=== PATIENT | male | born 1945 | race African-American/Black ===

== ENCOUNTER 2016-10-25 14:59 | Inpatient (IN) | payer OTHER ==
[2016-10-25 15:11] VITALS: BMI 14.0
--- NOTE | 2016-10-25 17:24 | PDOC ---
History of Present Illness - General History Source: Patient, Old Records Exam Limitations: No Limitations <Bridgte Cazares - Last Filed: 10/25/16 21:15> - General History Source: Patient, Old Records Exam Limitations: No Limitations - History of Present Illness Initial Comments: 10/25/16 17:38 The patient is a 70 year old male, with a significant past medical history of hyperlipidemia, COPD and seizures, who presents to the emergency department with worsening back pain s/p an unwitnessed mechanical fall this morning while getting off the toilet. The patient states that he fell off the toilet and onto the floor, landing on his back. The patient denies any LOC or any head trauma. The patient states that he did not have a syncopal episode or a seizure; he states that his legs gave out from under him. The patient denies shortness of breath or chest pain. The patient denies fever, chills, nausea or vomiting. The patient denies any extremity numbness/tingling. The patient denies any saddle anesthesia. Allergies: None reported. Past Surgical History: Right Total Hip Replacement Social History: The patient lives by himself in an apartment. Former smoker ( quit approximately 14 years ago). Denies alcohol or drug use. <Susan Elena - Last Filed: 10/25/16 21:25> - General Chief Complaint: Injury Stated Complaint: FALL, BACK PAIN Time Seen by Provider: 10/25/16 16:49 Past History - Past Medical History Anemia: No Asthma: No Cancer: No Cardiac Disorders: No CVA: No COPD: Yes CHF: No DVT: No Dementia: No Diabetes: No Dialysis: No GI Disorders: No Disorders: No HTN: No Hypercholesterolemia: Yes Kidney Stones: No Liver Disease: No Seizures: Yes Thyroid Disease: No - Surgical History Abdominal Surgery: No Appendectomy: No Cardiac Surgery: No Cholecystectomy: No Lung Surgery: No Neurologic Surgery: No Orthopedic Surgery: Yes (rt total hip) - Immunization History Immunization Up to Date: Yes - Psycho/Social/Smoking Cessation Hx Anxiety: No Suicidal Ideation: No Smoking Status: No Smoking History: Never smoked Have you smoked in the past 12 months: No Number of Cigarettes Smoked Daily: 0 If you are a former smoker, when did you quit?: 14 years Information on smoking cessation initiated: No 'Breaking Loose' booklet given: 02/04/16 Hx Alcohol Use: No Drug/Substance Use Hx: No Substance Use Type: None Hx Substance Use Treatment: No <Bridget Cazares - Last Filed: 10/25/16 21:15> <Susan Elena - Last Filed: 10/25/16 21:25> - Past Medical History Allergies/Adverse Reactions: Allergies Allergy/AdvReac Type Severity Reaction Status Date / Time No Known Drug Allergies Allergy Verified 10/25/16 15:03 Home Medications: Ambulatory Orders Albuterol 2.5/Ipratropium 0.5 [Duoneb -] 1 neb NEB Q4H PRN 06/11/14 Esomeprazole Mag Trihydrate [Nexium] 40 mg PO DAILY 06/11/14 Ipratropium [place] [Atrovent Hfa] 18 mcg IH Q4H PRN 06/11/14 Phenytoin Na Extended [Dilantin -] 100 mg PO BID 06/11/14 Tiotropium [place] [Spiriva] 1 inh PO DAILY 06/11/14 Acetaminophen [Tylenol .Regular Strength -] 325 mg PO Q8H #270 tablet 06/15/14 Aspirin [ASA -] 81 mg PO DAILY #90 tab.chew 06/15/14 Diltiazem HCl [Dilacor Xr] 120 mg PO DAILY #120 cap.er.deg 06/15/14 Montelukast Na [Singulair -] 10 mg PO HS #90 tablet 06/15/14 Simvastatin [Zocor -] 20 mg PO HS #90 06/15/14 Multivitamins [Multivit ([facility] Formul[facility])] 1 tab PO DAILY #90 tab 07/19/14 Fexofenadine/Pseudoephedrine [Kalpana-D 12 Hour Tablet] 1 each PO BID 02/04/16 Hydrogen Peroxide - 0 ml MM PRN 02/04/16 Levalbuterol Tartrate [Xopenex Hfa] 15 gm IH BID 02/04/16 Review of Systems - Review of Systems Able to Perform ROS?: Yes Comments:: 10/25/16 17:39 GENERAL/CONSTITUTIONAL: No fever or chills. No weakness. HEAD, EYES, EARS, NOSE AND THROAT: No change in vision. No ear pain or discharge. No sore throat. CARDIOVASCULAR: No chest pain or shortness of breath. RESPIRATORY: No cough, wheezing, or hemoptysis. GASTROINTESTINAL: No nausea, vomiting, diarrhea or constipation. GENITOURINARY: No dysuria, frequency, or change in urination. MUSCULOSKELETAL: +Back pain. No joint or muscle swelling or pain. No neck pain. SKIN: No rash. NEUROLOGIC: No headache, vertigo, loss of consciousness, or change in strength/ sensation. ENDOCRINE: No increased thirst. No abnormal weight change. HEMATOLOGIC/LYMPHATIC: No anemia, easy bleeding, or history of blood clots. ALLERGIC/IMMUNOLOGIC: No hives or skin allergy. <Susan Elena - Last Filed: 10/25/16 21:25> *Physical Exam - Vital Signs Last Vital Signs Temp Pulse Resp BP Pulse Ox 97.6 F 95 H 18 121/62 94 L 10/25/16 15:04 10/25/16 15:04 10/25/16 15:04 10/25/16 15:04 10/25/16 17:16 <Bridget Cazares - Last Filed: 10/25/16 21:15> - Vital Signs Last Vital Signs Temp Pulse Resp BP Pulse Ox 97.6 F 95 H 18 121/62 94 L 10/25/16 15:04 10/25/16 15:04 10/25/16 15:04 10/25/16 15:04 10/25/16 17:16 - Physical Exam Comments: 10/25/16 18:03 GENERAL: Cachectic appearing. Awake, alert, and fully oriented, in no acute distress. HEAD: No signs of trauma. EYES: PERRLA, EOMI, sclera anicteric, conjunctiva clear. ENT: Auricles normal inspection, hearing grossly normal, nares patent, oropharynx clear without exudates. Dry mucosa. NECK: Normal ROM, supple, no lymphadenopathy, JVD, or masses. LUNGS: Faint breath sounds but equal bilaterally. No wheezes, and no crackles. HEART: Regular rate and rhythm, normal S1 and S2, no murmurs, rubs or gallops. ABDOMEN: Soft, nontender, normoactive bowel sounds. No guarding, no rebound. No masses. MUSCULOSKELETAL: T5-T6 lower lumbar tenderness to palpation. No gross bony deformities. EXTREMITIES: Normal range of motion, no edema. No clubbing or cyanosis. No cords , erythema, or tenderness. NEUROLOGICAL: Cranial nerves II through XII grossly intact. Normal speech, gait is deferred. SKIN: Warm, dry, normal turgor, no rashes or lesions noted. <Susan Elena - Last Filed: 10/25/16 21:25> ED Treatment Course - LABORATORY CBC & Chemistry Diagram: 10/25/16 18:55 10/25/16 18:55 <Bridget Cazares - Last Filed: 10/25/16 21:15> - LABORATORY CBC & Chemistry Diagram: 10/25/16 18:55 10/25/16 18:55 <Susan Elena - Last Filed: 10/25/16 21:25> Medical Decision Making - Medical Decision Making 10/25/16 18:48 70-year-old male with history of COPD, hypertension, seizure disorder who presents to the emergency department with complaints of lower back pain status post fall today without LOC or syncope. Oxygen saturation is 94% on RA. Differential diagnosis includes but is not limited to: Back contusion, sprain, vertebral injury, UTI, pneumonia, ACS, electrolyte abnormality, dehydration, toxic/metabolic derangement. Plan: 1. EKG 2. Chest x-ray 3. Plain films of thoracic and lumbar spine 4. Urine and labs 5. Pain management 6. Observe and reevaluate 10/25/16 21:13 Addendum: The patient has a white blood cell count of 20,000. The chest x-ray appears to have an infiltrate in the right middle lobe and possibly the right lower lobe. The patient refused blood cultures but he is been covered with vancomycin and Zosyn regardless. His lactate is normal. The plan is to admit for IV antibiotics for pneumonia. Of note, his dilantin level is above the therapeutic range and thus may be a reason why he fell. I was not successful in completing a neurologic exam on this patient as he was not cooperative. <Bridget Cazares - Last Filed: 10/25/16 21:15> - Medical Decision Making 10/25/16 21:19 Called patient's PCP, Dr. Joshua Durán, at at 21:15. Referred to answering service, awaiting callback. Dr. Androne returned call at 21:23, case discussed. <Susan Elena - Last Filed: 10/25/16 21:25> *DC/Admit/Observation/Transfer - Discharge Dispostion Admit: Yes - Attestations Physician Attestion: 10/25/16 18:50 I, Dr. Bridget Cazares, attest that the scribes documentation that appears above has been prepared under my direction and personally reviewed by me in its entirety. I confirmed that the note above accurately reflects all work, treatment, procedures, and medical decision-making performed by me. <Bridget Cazares - Last Filed: 10/25/16 21:15> - Attestations Scribe Attestion: 10/25/16 17:38 Documentation prepared by Susan Elena, acting as medical device sales for Bridget Cazares MD. <Susan Elena - Last Filed: 10/25/16 21:25> Diagnosis at time of Disposition: Back pain, Fall, Pneumonia - Discharge Dispostion Condition at time of disposition: Stable
[2016-10-25 19:05] LABS: MCH 27.8 pg (25.7-33.7); MCHC 32.3 g/dl (32.0-35.9); MEAN PLT VOLUME 10.2 fl (7.5-11.1); PLATELET COUNT 156 K/MM3 (134-434); WHITE BLOOD COUNT 20.4 K/mm3 (4.0-10.0)
[2016-10-25 19:32] LABS: ALBUMIN 3.6 g/dl (3.4-5.0); ANION GAP 13 (8-16); BILIRUBIN,TOTAL 0.5 mg/dL (0.2-1.0); CALCIUM 8.8 mg/dL (8.5-10.1); CO2 24 mmol/L (21-32); CREATININE 0.6 mg/dL (0.7-1.3); GLUCOSE,RANDOM 80 mg/dL (74-106); SGPT/ALT 21 U/L (12-78); TOT PROT 7.2 g/dl (6.4-8.2)
[2016-10-25 19:35] LABS: ALK PHOS 166 U/L (45-117); TROPONIN I < 0.02 ng/ml (0.00-0.05)
[2016-10-25 19:36] LABS: SGOT/AST 20 U/L (15-37)
[2016-10-25 19:38] LABS: PLATELET ESTIMATE ADEQUATE (NORMAL)
[2016-10-25] MEDS ORDERED: PIPERACILLIN/TAZOB 3.375 GM/50 ML PRE-DOCKED IV ONE (20:07)
[2016-10-25] MEDS ORDERED: SODIUM CHLORIDE 1,000 ML IV STA (20:07)
[2016-10-25] MEDS ORDERED: VANCOMYCIN 1,000 MG in DEXTROSE 5%-WATER - 250 ML IVPB ONE (20:07)
[2016-10-25] MEDS ORDERED: PIPERACILLIN/TAZOB 3.375 GM 50 ML IVPB ONE (21:00)
[2016-10-25] MEDS ORDERED: VANCOMYCIN 1 GRAM (PRE-DOCKED) 250 ML IVPB ONE (21:40)
[2016-10-25 23:33] LABS: URINE APPEARANCE SLCLOUDY; URINE BILIRUBIN NEGATIVE (NEGATIVE); URINE COLOR YELLOW; URINE GLUCOSE (UA) 1+ (NEGATIVE); URINE KETONE 1+ (NEGATIVE); URINE NITRITE POSITIVE (NEGATIVE); URINE PROTEIN NEGATIVE (NEGATIVE); URINE UROBILINOGEN NEGATIVE E.U./dl (0.2-1.0)
[2016-10-25 23:35] LABS: URINE BLOOD 1+ (NEGATIVE); URINE LEUK ESTERASE 1+ (NEGATIVE)
[2016-10-25 23:37] LABS: URIC ACID CRYSTALS FEW /hpf (NONE SEEN); URINE BACTERIA MANY /hpf (NONE SEEN); URINE HYALINE CAST 9 /lpf; URINE MUCUS RARE; URINE RBC 2 /hpf (0-3); URINE WBC 19 /hpf (3-5)
[2016-10-26 09:52] LABS: ALBUMIN 3.4 g/dl (3.4-5.0); ALK PHOS 152 U/L (45-117); ANION GAP 15 (8-16); BILIRUBIN,TOTAL 0.6 mg/dL (0.2-1.0); CALCIUM 8.8 mg/dL (8.5-10.1); CO2 22 mmol/L (21-32); CREATININE 0.5 mg/dL (0.7-1.3); GLUCOSE,RANDOM 62 mg/dL (74-106); SGOT/AST 13 U/L (15-37); SGPT/ALT 20 U/L (12-78); TOT PROT 6.7 g/dl (6.4-8.2)
[2016-10-26] MEDS ORDERED: AZITHROMYCIN IVPB 250 ML IVPB ONE (10:00)
[2016-10-26] MEDS ORDERED: PATIENT'S OWN MEDICATION (NON-FORMULARY) (Esomeprazole Mag Trihydrate [Nexium] 40 MG) PO SCH (10:00)
[2016-10-26] MEDS ORDERED: PT OWN MED DRAWER 7, Y5N ONE ×2 (11:14→22:57)
[2016-10-26] MEDS: MULTIVITAMINS (DAILY MVI) TABLET (FP) PO SCH (11:44)
[2016-10-26] MEDS: PANTOPRAZOLE 40 MG TABLET (FP) PO SCH (11:44)
[2016-10-26] MEDS: ASPIRIN 81 MG CHEWABLE TABLETS PO SCH (11:44)
--- NOTE | 2016-10-26 11:55 | HP ---
Admitting History and Physical - Primary Care Physician PCP: Joshua Durán - Admission Chief Complaint: Weakness. Fall History of Present Illness: Pt started to feel weak yesterday and fell from the toilet bowl on his back; no head trauma, no back pain, no hip pain. Pt with minimal colored sputum, no SOB, no CP/ dizziness/ palp. History Source: Patient, Medical Record - Past Medical History Cardiovascular: Yes: CAD (s/p PCI with cardiac stent), HTN, Hyperlipdemia Pulmonary: Yes: COPD, O2 Dependent Gastrointestinal: Yes: GERD - Past Surgical History Past Surgical History: Yes: Joint Replacement - Smoking History Smoking history: Never smoked Have you smoked in the past 12 months: No Aproximately how many cigarettes per day: 0 If you are a former smoker, when did you quit?: 14 years - Alcohol/Substance Use Hx Alcohol Use: No - Social History History of Recent Travel: No Home Medications - Allergies Allergies/Adverse Reactions: Allergies Allergy/AdvReac Type Severity Reaction Status Date / Time No Known Drug Allergies Allergy Verified 10/25/16 15:03 - Home Medications Home Medications: Ambulatory Orders Albuterol 2.5/Ipratropium 0.5 [Duoneb -] 1 neb NEB Q4H PRN 06/11/14 Esomeprazole Mag Trihydrate [Nexium] 40 mg PO DAILY 06/11/14 Ipratropium [place] [Atrovent Hfa] 18 mcg IH Q4H PRN 06/11/14 Phenytoin Na Extended [Dilantin -] 100 mg PO BID 06/11/14 Tiotropium [place] [Spiriva] 1 inh PO DAILY 06/11/14 Acetaminophen [Tylenol .Regular Strength -] 325 mg PO Q8H #270 tablet 06/15/14 Aspirin [ASA -] 81 mg PO DAILY #90 tab.chew 06/15/14 Diltiazem HCl [Dilacor Xr] 120 mg PO DAILY #120 cap.er.deg 06/15/14 Montelukast Na [Singulair -] 10 mg PO HS #90 tablet 06/15/14 Simvastatin [Zocor -] 20 mg PO HS #90 06/15/14 Multivitamins [Multivit ([facility] Form[facility])] 1 tab PO DAILY #90 tab 07/19/14 Fexofenadine/Pseudoephedrine [Kalpana-D 12 Hour Tablet] 1 each PO BID 02/04/16 Hydrogen Peroxide - 0 ml MM PRN 02/04/16 Levalbuterol Tartrate [Xopenex Hfa] 15 gm IH BID 02/04/16 Review of Systems - Review of Systems Constitutional: denies: Chills, Fever, Night Sweats Eyes: denies: Blurred Vision, Double Vision HENT: denies: Difficult Swallowing, Ear Discharge, Ear Pain, Throat Pain Neck: denies: Pain on Movement, Tenderness Cardiovascular: denies: Chest Pain, Edema, Palpitations, Shortness of Breath Respiratory: reports: Cough. denies: Hemoptysis, Wheezing Gastrointestinal: denies: Abdominal Pain, Constipation, Diarrhea, Nausea Genitourinary: denies: Burning, Discharge, Flank Pain Musculoskeletal: denies: Back Pain, Joint Pain, Joint Swelling Integumentary: denies: Blister, Bruising, Rash Neurological: denies: Change in LOC, Change in Speech, Confusion, Headache, Numbness, Tremors Endocrine: denies: Excessive Sweating, Intolerance to Cold Psychiatric: denies: Altered Sleep Pattern, Anxiety, Depression Physical Examination Vital Signs: Vital Signs Temperature 98.7 F 10/26/16 08:37 Pulse Rate 90 10/26/16 08:37 Respiratory Rate 20 10/26/16 08:37 Blood Pressure 134/75 10/26/16 08:37 O2 Sat by Pulse Oximetry (%) 94 L 10/26/16 00:16 Constitutional: Yes: No Distress, Calm Eyes: Yes: Conjunctiva Clear, PERRL. No: Sclera Icterus HENT: Yes: Normocephalic. No: Epistaxis, Pharyngeal Erythema, Rhinnorhea Neck: Yes: Supple. No: Lymphadenopathy Cardiovascular: Yes: Regular Rate and Rhythm, S1, S2 Respiratory: Yes: Rhonchi (bilar, right > left) Gastrointestinal: Yes: Normal Bowel Sounds, Soft. No: Palpable Mass, Tenderness ...Rectal Exam: Yes: Deferred Musculoskeletal: No: Back Pain, Joint Swelling Edema: No Integumentary: No: Bruising, Rash Neurological: Yes: Alert, Oriented, Other (symmetric motor and sensory in UE/ LE / face.) Psychiatric: Yes: Alert, Oriented Labs: CBC, BMP 10/26/16 06:00 Imaging - Results Chest X-ray: Report Reviewed Problem List - Problems (1) Pneumonia Assessment/Plan: ON IV abtx Pulmonary consult Code(s): J18.9 - PNEUMONIA, UNSPECIFIED ORGANISM (2) Fall Assessment/Plan: no obvious trauma Code(s): W19.XXXA - UNSPECIFIED FALL, INITIAL ENCOUNTER (3) COPD (chronic obstructive pulmonary disease) Assessment/Plan: to f/u with Pulmonary Code(s): J44.9 - CHRONIC OBSTRUCTIVE PULMONARY DISEASE, UNSPECIFIED (4) CAD (coronary artery disease) Assessment/Plan: cont meds Code(s): I25.10 - ATHSCL HEART DISEASE OF [place] CORONARY ARTERY W/O ANG PCTRS (5) Hypercholesterolemia Assessment/Plan: Pt is refusing to eat Low cholesterol, low salt diet- this is going on for years ; pt is underweight for years, refusing to gain weight as he states that has negative effect on his body. Code(s): E78.0 - PURE HYPERCHOLESTEROLEMIA * DO NOT USE * (6) Seizure disorder Assessment/Plan: on Dilantin- difficult to monitor as patient is refusing blood drawing as outpt. Elevated Dilantin level now; Dilantin is on hold; to monitor Code(s): G40.909 - EPILEPSY, UNSP, NOT INTRACTABLE, WITHOUT STATUS EPILEPTICUS Assessment/Plan DVT proph PT
[2016-10-26 12:00] LABS: MCH 27.7 pg (25.7-33.7); MCHC 31.9 g/dl (32.0-35.9); MEAN CELL VOLUME 86.9 fl (80-96); MEAN PLT VOLUME 10.6 fl (7.5-11.1); PLATELET COUNT 152 K/MM3 (134-434); WHITE BLOOD COUNT 22.9 K/mm3 (4.0-10.0)
[2016-10-26] MEDS ORDERED: POTASSIUM CHLORIDE TABS 20 MEQ TABLET.ER (FP) PO ONE (12:04)
[2016-10-26] MEDS: ACLIDINIUM BROMIDE 400 MCG/INH AERO.POWD IH SCH ×2 (13:08→23:03)
[2016-10-26] MEDS: cefTRIAXone 1 GM/50 ML BAG (PRE-DOCKED) IVPB SCH (13:08)
[2016-10-26] MEDS ORDERED: guaiFENesin/D-METHORPHAN HB 10 ML UNIT-DOSE CUPS PO PRN (13:14)
--- NOTE | 2016-10-26 14:20 | CON.PULM ---
Consult Consult Specialty:: PULMONARY Referred by:: EVELIA Reason for Consultation:: SOB/PNA - History of Present Illness Chief Complaint: SOB/COUGH History of Present Illness: The patient is a 70 year old male, with a significant past medical history of hyperlipidemia, COPD and seizures, who presents to the emergency department with worsening back pain s/p an unwitnessed mechanical fall this morning while getting off the toilet. The patient states that he fell off the toilet and onto the floor, landing on his back. The patient denies any LOC or any head trauma. The patient states that he did not have a syncopal episode or a seizure; he states that his legs gave out from under him. The patient denies shortness of breath or chest pain. The patient denies fever, chills, nausea or vomiting. The patient denies any extremity numbness/tingling. - History Source History Provided By: Patient, Medical Record Limitations to Obtaining History: Poor Historian - Past Medical History FABRICATION SPECIALIST: No: Alzheimer's Cardio/Vascular: Yes: CAD (s/p PCI with cardiac stent), HTN, Hyperlipdemia Pulmonary: Yes: COPD, O2 Dependent Gastrointestinal: Yes: GERD - Past Surgical History Past Surgical History: Yes: Joint Replacement - Alcohol/Substance Use Hx Alcohol Use: No - Smoking History Smoking history: Never smoked Have you smoked in the past 12 months: No Aproximately how many cigarettes per day: 0 If you are a former smoker, when did you quit?: 14 years - Social History Place of : [facility] History of Recent Travel: No Home Medications - Allergies Allergies/Adverse Reactions: Allergies Allergy/AdvReac Type Severity Reaction Status Date / Time No Known Drug Allergies Allergy Verified 10/25/16 15:03 - Home Medications Home Medications: Ambulatory Orders Albuterol 2.5/Ipratropium 0.5 [Duoneb -] 1 neb NEB Q4H PRN 06/11/14 Esomeprazole Mag Trihydrate [Nexium] 40 mg PO DAILY 06/11/14 Ipratropium [place] [Atrovent Hfa] 18 mcg IH Q4H PRN 06/11/14 Phenytoin Na Extended [Dilantin -] 100 mg PO BID 06/11/14 Tiotropium [place] [Spiriva] 1 inh PO DAILY 06/11/14 Acetaminophen [Tylenol .Regular Strength -] 325 mg PO Q8H #270 tablet 10/09/14 Aspirin [ASA -] 81 mg PO DAILY #90 tab.chew 06/15/14 Diltiazem HCl [Dilacor Xr] 120 mg PO DAILY #120 cap.er.deg 06/15/14 Montelukast Na [Singulair -] 10 mg PO HS #90 tablet 06/15/14 Simvastatin [Zocor -] 20 mg PO HS #90 06/15/14 Multivitamins [Multivit ([facility])] 1 tab PO DAILY #90 tab 07/19/14 Fexofenadine/Pseudoephedrine [Kalpana-D 12 Hour Tablet] 1 each PO BID 02/04/16 Hydrogen Peroxide - 0 ml MM PRN 02/04/16 Levalbuterol Tartrate [Xopenex Hfa] 15 gm IH BID 02/04/16 Family Disease History - Family Disease History Family History: Unremarkable Review of Systems - Review of Systems Constitutional: denies: Fever Eyes: denies: Blurred Vision HENT: denies: Difficult Swallowing Neck: denies: Decreased ROM Cardiovascular: denies: Chest Pain Respiratory: reports: Cough, SOB, SOB on Exertion Gastrointestinal: reports: No Symptoms Genitourinary: reports: No Symptoms Breasts: reports: No Symptoms Reported Physical Exam Vital Sings: Vital Signs Temperature 98.7 F 10/26/16 08:37 Pulse Rate 90 10/26/16 08:37 Respiratory Rate 20 10/26/16 08:37 Blood Pressure 134/75 10/26/16 08:37 O2 Sat by Pulse Oximetry (%) 94 L 10/26/16 00:16 Constitutional: Yes: Calm Eyes: Yes: EOM Intact HENT: Yes: Normocephalic Neck: Yes: Trachea Midline Cardiovascular: Yes: Regular Rate and Rhythm Respiratory: Yes: Diminished Gastrointestinal: Yes: Normal Bowel Sounds Musculoskeletal: Yes: WNL Extremities: Yes: WNL Neurological: Yes: Alert Labs: CBC, BMP 10/26/16 11:38 10/26/16 06:00 REST REVIEWED Imaging - Results Chest X-ray: Image Reviewed Problem List - Problems (1) Pneumonia Code(s): J18.9 - PNEUMONIA, UNSPECIFIED ORGANISM (2) CAD (coronary artery disease) Code(s): I25.10 - ATHSCL HEART DISEASE OF [place] CORONARY ARTERY W/O ANG PCTRS (3) COPD (chronic obstructive pulmonary disease) Code(s): J44.9 - CHRONIC OBSTRUCTIVE PULMONARY DISEASE, UNSPECIFIED Assessment/Plan RLL CAP COPD SEIZURE DISORDER HPL PANCULTURE ANTIBIOTICS/BRONCHODILATORS/O2 SUPPLEMENTATION SHORT COURSE STEROIDS DVT PROPHYLAXSIS CONSIDER CT CHEST WILL FOLLOW Alejo CLANCY MD
[2016-10-26] MEDS ORDERED: PATIENT'S OWN MEDICATION (NON-FORMULARY) (Simvastatin 20 MG) PO SCH (22:00)
[2016-10-26] MEDS: ATORVASTATIN CA 10 MG TABLET (FP) PO SCH (23:02)
[2016-10-26] MEDS: HEPARIN NA (PORCINE) 5,000 UNITS/ML 1ML VIAL SQ SCH (23:02)
[2016-10-26] MEDS: MONTELUKAST NA 10 MG TABLET PO SCH (23:02)
[2016-10-27 07:20] LABS: MCH 28.1 pg (25.7-33.7); MCHC 32.6 g/dl (32.0-35.9); MEAN PLT VOLUME 10.6 fl (7.5-11.1); PLATELET COUNT 149 K/MM3 (134-434); RDW 13.9 % (11.9-15.9); WHITE BLOOD COUNT 16.7 K/mm3 (4.0-10.0)
[2016-10-27 08:07] LABS: ALBUMIN 2.9 g/dl (3.4-5.0); ANION GAP 15 (8-16); CALCIUM 8.4 mg/dL (8.5-10.1); CO2 21 mmol/L (21-32); CREATININE 0.4 mg/dL (0.7-1.3); GLUCOSE,RANDOM 64 mg/dL (74-106); SGOT/AST 9 U/L (15-37); SGPT/ALT 17 U/L (12-78)
[2016-10-27 08:09] LABS: ALK PHOS 132 U/L (45-117); BILIRUBIN,TOTAL 0.5 mg/dL (0.2-1.0)
[2016-10-27] MEDS: ALBUTEROL SO4 2.5/IPRATROPIUM 0.5 INH SOL 3 ML VIAL.NEB. NEB PRN (10:44)
[2016-10-27] MEDS: ACLIDINIUM BROMIDE 400 MCG/INH AERO.POWD IH SCH ×2 (11:11→21:34)
[2016-10-27] MEDS ORDERED: PT OWN MED DRAWER 7, Y5N ONE ×2 (11:14→21:03)
[2016-10-27] MEDS: HEPARIN NA (PORCINE) 5,000 UNITS/ML 1ML VIAL SQ SCH ×2 (11:15→21:34)
[2016-10-27] MEDS: PANTOPRAZOLE 40 MG TABLET (FP) PO SCH (11:15)
[2016-10-27] MEDS: MULTIVITAMINS (DAILY MVI) TABLET (FP) PO SCH (11:15)
[2016-10-27] MEDS: ASPIRIN 81 MG CHEWABLE TABLETS PO SCH (11:15)
[2016-10-27] MEDS: cefTRIAXone 1 GM/50 ML BAG (PRE-DOCKED) IVPB SCH (12:34)
--- NOTE | 2016-10-27 14:12 | PN ---
Progress Note, Physician History of Present Illness: Pt. w/o SOB ( in bed most of the time), CP< palp, abd pain. Pt. with cough, sputum - Current Medication List Current Medications: Active Medications Acetaminophen (Tylenol -) 650 mg PO Q8H PRN PRN Reason: PAIN Aclidinium [place] (Tudorza -) 1 puff IH BID [facility] Last Admin: 10/27/16 11:11 Dose: 1 puff Albuterol/Ipratropium (Duoneb -) 1 amp NEB Q4H PRN PRN Reason: SHORTNESS OF BREATH Last Admin: 10/27/16 10:44 Dose: 1 amp Aspirin (Asa -) 81 mg PO DAILY [facility] Last Admin: 10/27/16 11:15 Dose: 81 mg Atorvastatin Calcium (Lipitor -) 10 mg PO HS [facility] Last Admin: 10/26/16 23:02 Dose: 10 mg Ceftriaxone Sodium (Rocephin 1gm Ivpb (Pre-Docked)) 1 gm IVPB DAILY [facility] PRN Reason: Protocol Last Admin: 10/27/16 12:34 Dose: 1 gm Diltiazem HCl (Cardizem Cd -) 120 mg PO DAILY [facility] Last Admin: 10/27/16 11:15 Dose: 120 mg Guaifenesin (Robitussin Dm -) 10 ml PO Q4H PRN PRN Reason: COUGH Heparin Sodium (Porcine) (Heparin -) 5,000 unit SQ BID [facility] Last Admin: 10/27/16 11:15 Dose: 5,000 unit Montelukast Sodium (Singulair -) 10 mg PO HS [facility] Last Admin: 10/26/16 23:02 Dose: 10 mg Multivitamins/Minerals/Vitamin C (Tab-A-Vit -) 1 tab PO DAILY [facility] Last Admin: 10/27/16 11:15 Dose: 1 tab Pantoprazole Sodium (Protonix -) 40 mg PO DAILY [facility] Last Admin: 10/27/16 11:15 Dose: 40 mg Phenytoin Sodium (Dilantin -) 100 mg PO BID [facility] Potassium Chloride (K-Dur -) 20 meq PO ONCE ONE Stop: 10/27/16 14:02 - Objective Vital Signs: Vital Signs Temperature 98.7 F 10/27/16 06:10 Pulse Rate 78 10/27/16 06:10 Respiratory Rate 18 10/27/16 06:10 Blood Pressure 126/67 10/27/16 06:10 O2 Sat by Pulse Oximetry (%) 94 L 10/26/16 21:00 Constitutional: Yes: No Distress, Calm Cardiovascular: Yes: Regular Rate and Rhythm, S1, S2 Respiratory: Yes: Regular, Rales, Rhonchi. No: Wheezes Gastrointestinal: Yes: Normal Bowel Sounds, Soft. No: Palpable Mass, Tenderness Edema: No Neurological: Yes: Alert, Oriented Labs: CBC, BMP 10/27/16 06:00 10/27/16 06:00 Problem List - Problems (1) Pneumonia Assessment/Plan: On IV abtx Pulmonary consult appreciated Incentive spirometry Code(s): J18.9 - PNEUMONIA, UNSPECIFIED ORGANISM (2) Fall Assessment/Plan: no obvious trauma Code(s): W19.XXXA - UNSPECIFIED FALL, INITIAL ENCOUNTER (3) COPD (chronic obstructive pulmonary disease) Assessment/Plan: to f/u with Pulmonary Code(s): J44.9 - CHRONIC OBSTRUCTIVE PULMONARY DISEASE, UNSPECIFIED (4) CAD (coronary artery disease) Assessment/Plan: cont meds Code(s): I25.10 - ATHSCL HEART DISEASE OF [place] CORONARY ARTERY W/O ANG PCTRS (5) Hypercholesterolemia Assessment/Plan: Pt is refusing to eat Low cholesterol, low salt diet- this is going on for years ; pt is underweight for years, refusing to gain weight as he states that has negative effect on his body. Code(s): E78.0 - PURE HYPERCHOLESTEROLEMIA * DO NOT USE * (6) Seizure disorder Assessment/Plan: on Dilantin- difficult to monitor as patient is refusing blood drawing as outpt. Elevated Dilantin resolved; to start Dilantin; to monitor level. Code(s): G40.909 - EPILEPSY, UNSP, NOT INTRACTABLE, WITHOUT STATUS EPILEPTICUS Assessment/Plan DVT proph PT AM labs
--- NOTE | 2016-10-27 15:08 | PN ---
Progress Note (short form) - Note Progress Note: Still with congested cough with dark sputum. No CP. Less SOB today. Intake & Output 10/24/16 10/25/16 10/26/16 10/27/16 23:59 23:59 23:59 23:59 Intake Total 450 0 Balance 450 0 Weight 95 lb 95 lb Last Vital Signs Temp Pulse Resp BP Pulse Ox 98.7 F 78 18 126/67 94 L 10/27/16 06:10 10/27/16 06:10 10/27/16 06:10 10/27/16 06:10 10/26/16 21:00 Active Medications Acetaminophen (Tylenol -) 650 mg PO Q8H PRN PRN Reason: PAIN Aclidinium [place] (Tudorza -) 1 puff IH BID [facility] Last Admin: 10/27/16 11:11 Dose: 1 puff Albuterol/Ipratropium (Duoneb -) 1 amp NEB Q4H PRN PRN Reason: SHORTNESS OF BREATH Last Admin: 10/27/16 10:44 Dose: 1 amp Aspirin (Asa -) 81 mg PO DAILY [facility] Last Admin: 10/27/16 11:15 Dose: 81 mg Atorvastatin Calcium (Lipitor -) 10 mg PO HS [facility] Last Admin: 10/26/16 23:02 Dose: 10 mg Ceftriaxone Sodium (Rocephin 1gm Ivpb (Pre-Docked)) 1 gm IVPB DAILY [facility] PRN Reason: Protocol Last Admin: 10/27/16 12:34 Dose: 1 gm Diltiazem HCl (Cardizem Cd -) 120 mg PO DAILY [facility] Last Admin: 10/27/16 11:15 Dose: 120 mg Guaifenesin (Robitussin Dm -) 10 ml PO Q4H PRN PRN Reason: COUGH Heparin Sodium (Porcine) (Heparin -) 5,000 unit SQ BID [facility] Last Admin: 10/27/16 11:15 Dose: 5,000 unit Montelukast Sodium (Singulair -) 10 mg PO HS [facility] Last Admin: 10/26/16 23:02 Dose: 10 mg Multivitamins/Minerals/Vitamin C (Tab-A-Vit -) 1 tab PO DAILY [facility] Last Admin: 10/27/16 11:15 Dose: 1 tab Pantoprazole Sodium (Protonix -) 40 mg PO DAILY [facility] Last Admin: 10/27/16 11:15 Dose: 40 mg Phenytoin Sodium (Dilantin -) 100 mg PO BID [facility] Potassium Chloride (K-Dur -) 20 meq PO ONCE ONE Stop: 10/27/16 15:16 Last Admin: 10/27/16 15:02 Dose: 20 meq Constitutional: Yes: No Distress Cardiovascular: Yes: Regular Rate and Rhythm, S1, S2 Respiratory: Yes: Bilateral Rhonchi: R>L. No: Wheezes Gastrointestinal: Yes: Normal Bowel Sounds, Soft. No: Palpable Mass, Tenderness Edema: No Neurological: Yes: Alert, Oriented Labs: Laboratory Results - last 24 hr 10/27/16 10/27/16 10/27/16 06:00 06:00 06:00 WBC 16.7 H RBC 4.35 Hgb 12.2 Hct 37.4 MCV 86.0 MCHC 32.6 RDW 13.9 Plt Count 149 MPV 10.6 Sodium 143 Potassium 3.5 Chloride 107 Carbon Dioxide 21 Anion Gap 15 BUN 11 Creatinine 0.4 L Creat Clearance w eGFR > 60 Random Glucose 64 L Calcium 8.4 L Total Bilirubin 0.5 AST 9 L D ALT 17 Alkaline Phosphatase 132 H Total Protein 6.0 L Albumin 2.9 L Phenytoin 15.8 D Problem List - Problems (1) Pneumonia Assessment/Plan: Code(s): J18.9 - PNEUMONIA, UNSPECIFIED ORGANISM (2) Fall Assessment/Plan: Code(s): W19.XXXA - UNSPECIFIED FALL, INITIAL ENCOUNTER (3) COPD (chronic obstructive pulmonary disease) Assessment/Plan: Code(s): J44.9 - CHRONIC OBSTRUCTIVE PULMONARY DISEASE, UNSPECIFIED (4) CAD (coronary artery disease) Assessment/Plan: Code(s): I25.10 - ATHSCL HEART DISEASE OF [place] CORONARY ARTERY W/O ANG PCTRS (5) Hypercholesterolemia Assessment/Plan: Code(s): E78.0 - PURE HYPERCHOLESTEROLEMIA * DO NOT USE * (6) Seizure disorder Assessment/Plan: Code(s): G40.909 - EPILEPSY, UNSP, NOT INTRACTABLE, WITHOUT STATUS EPILEPTICUS Assessment/Plan Rocephin Daily Medrol for CAP BD TX O2 as needed Incentive Spirometry Dr Garay
[2016-10-27] MEDS: ACETAMINOPHEN 325 MG TABLET (FP) PO PRN (15:11)
[2016-10-27] MEDS ORDERED: POTASSIUM CHLORIDE TABS 20 MEQ TABLET.ER (FP) PO ONE (15:15)
--- NOTE | 2016-10-27 16:23 | EKG ---
Test Reason : Blood Pressure : / mmHG Vent. 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
[2016-10-27] MEDS: methylPREDNISolone NA SUCC 40 MG/1 ML VIAL IVPB SCH (17:48)
[2016-10-27] MEDS: MONTELUKAST NA 10 MG TABLET PO SCH (21:34)
[2016-10-27] MEDS: PHENYTOIN NA EXTENDED 100 MG CAPSULE (FP) PO SCH (21:34)
[2016-10-27] MEDS: ATORVASTATIN CA 10 MG TABLET (FP) PO SCH (21:34)
[2016-10-28] MEDS: ACETAMINOPHEN 325 MG TABLET (FP) PO PRN ×2 (06:46→18:53)
--- NOTE | 2016-10-28 09:57 | PN ---
Progress Note (short form) - Note Progress Note: PULMONARY Denies shortness of breath. +cough clearing, now with white sputum. No fevers or chills. Last Vital Signs Temp Pulse Resp BP Pulse Ox 97.8 F 76 20 108/55 97 10/28/16 06:26 10/28/16 06:26 10/28/16 06:26 10/28/16 06:26 10/27/16 21:00 Gen: NAD at rest Heart: RRR Lung: distant breath sounds Abd: soft, nontender Ext: no edema CBC, BMP 10/27/16 06:00 10/27/16 06:00 Active Medications Acetaminophen (Tylenol -) 650 mg PO Q8H PRN PRN Reason: PAIN Last Admin: 10/28/16 06:46 Dose: 650 mg Aclidinium [place] (Tudorza -) 1 puff IH BID [facility] Last Admin: 10/27/16 21:34 Dose: 1 puff Albuterol/Ipratropium (Duoneb -) 1 amp NEB Q4H PRN PRN Reason: SHORTNESS OF BREATH Last Admin: 10/27/16 10:44 Dose: 1 amp Aspirin (Asa -) 81 mg PO DAILY [facility] Last Admin: 10/27/16 11:15 Dose: 81 mg Atorvastatin Calcium (Lipitor -) 10 mg PO HS [facility] Last Admin: 10/27/16 21:34 Dose: 10 mg Ceftriaxone Sodium (Rocephin 1gm Ivpb (Pre-Docked)) 1 gm IVPB DAILY [facility] PRN Reason: Protocol Last Admin: 10/27/16 12:34 Dose: 1 gm Diltiazem HCl (Cardizem Cd -) 120 mg PO DAILY [facility] Last Admin: 10/27/16 11:15 Dose: 120 mg Guaifenesin (Robitussin Dm -) 10 ml PO Q4H PRN PRN Reason: COUGH Heparin Sodium (Porcine) (Heparin -) 5,000 unit SQ BID [facility] Last Admin: 10/27/16 21:34 Dose: 5,000 unit Methylprednisolone Sodium Succinate (Solu-Medrol -) 40 mg IVPB DAILY [facility] Stop: 11/01/16 15:29 Last Admin: 10/27/16 17:48 Dose: 40 mg Montelukast Sodium (Singulair -) 10 mg PO HS [facility] Last Admin: 10/27/16 21:34 Dose: 10 mg Multivitamins/Minerals/Vitamin C (Tab-A-Vit -) 1 tab PO DAILY [facility] Last Admin: 10/27/16 11:15 Dose: 1 tab Pantoprazole Sodium (Protonix -) 40 mg PO DAILY [facility] Last Admin: 10/27/16 11:15 Dose: 40 mg Phenytoin Sodium (Dilantin -) 100 mg PO BID [facility] Last Admin: 10/27/16 21:34 Dose: 100 mg A/P Pneumonia s/p Fall COPD CAD Hypercholesterolemia Seizure Disorder - continue antibiotics - monitor WBC, fever curve - O2 as needed - inhaled bronchodilators - can change steroids to PO - rehab/PT - requesting social work for home scooter - DVT prophylaxis
--- NOTE | 2016-10-28 09:58 | PN ---
Progress Note, Physician History of Present Illness: Pt. w/o SOB ( in bed most of the time), CP, palp, abd pain. Pt. with cough, sputum- no blood Pt. is refusing blood work today - Current Medication List Current Medications: Active Medications Acetaminophen (Tylenol -) 650 mg PO Q8H PRN PRN Reason: PAIN Last Admin: 10/28/16 06:46 Dose: 650 mg Aclidinium [place] (Tudorza -) 1 puff IH BID [facility] Last Admin: 10/27/16 21:34 Dose: 1 puff Albuterol/Ipratropium (Duoneb -) 1 amp NEB Q4H PRN PRN Reason: SHORTNESS OF BREATH Last Admin: 10/27/16 10:44 Dose: 1 amp Aspirin (Asa -) 81 mg PO DAILY [facility] Last Admin: 10/27/16 11:15 Dose: 81 mg Atorvastatin Calcium (Lipitor -) 10 mg PO HS [facility] Last Admin: 10/27/16 21:34 Dose: 10 mg Ceftriaxone Sodium (Rocephin 1gm Ivpb (Pre-Docked)) 1 gm IVPB DAILY [facility] PRN Reason: Protocol Last Admin: 10/27/16 12:34 Dose: 1 gm Diltiazem HCl (Cardizem Cd -) 120 mg PO DAILY [facility] Last Admin: 10/27/16 11:15 Dose: 120 mg Guaifenesin (Robitussin Dm -) 10 ml PO Q4H PRN PRN Reason: COUGH Heparin Sodium (Porcine) (Heparin -) 5,000 unit SQ BID [facility] Last Admin: 10/27/16 21:34 Dose: 5,000 unit Methylprednisolone Sodium Succinate (Solu-Medrol -) 40 mg IVPB DAILY [facility] Stop: 11/01/16 15:29 Last Admin: 10/27/16 17:48 Dose: 40 mg Montelukast Sodium (Singulair -) 10 mg PO HS [facility] Last Admin: 10/27/16 21:34 Dose: 10 mg Multivitamins/Minerals/Vitamin C (Tab-A-Vit -) 1 tab PO DAILY [facility] Last Admin: 10/27/16 11:15 Dose: 1 tab Pantoprazole Sodium (Protonix -) 40 mg PO DAILY [facility] Last Admin: 10/27/16 11:15 Dose: 40 mg Phenytoin Sodium (Dilantin -) 100 mg PO BID [facility] Last Admin: 10/27/16 21:34 Dose: 100 mg - Objective Vital Signs: Vital Signs Temperature 97.8 F 10/28/16 06:26 Pulse Rate 76 10/28/16 06:26 Respiratory Rate 20 10/28/16 06:26 Blood Pressure 108/55 10/28/16 06:26 O2 Sat by Pulse Oximetry (%) 97 10/27/16 21:00 Constitutional: Yes: No Distress, Calm Cardiovascular: Yes: Regular Rate and Rhythm, S1, S2 Respiratory: Yes: Regular, Rhonchi Gastrointestinal: Yes: Normal Bowel Sounds, Soft. No: Palpable Mass, Tenderness Edema: No Neurological: Yes: Alert, Oriented Labs: CBC, BMP 10/27/16 06:00 10/27/16 06:00 Problem List - Problems (1) Pneumonia Assessment/Plan: On IV abtx Pulmonary consult appreciated Incentive spirometry Code(s): J18.9 - PNEUMONIA, UNSPECIFIED ORGANISM (2) Fall Assessment/Plan: no obvious trauma Code(s): W19.XXXA - UNSPECIFIED FALL, INITIAL ENCOUNTER (3) COPD (chronic obstructive pulmonary disease) Assessment/Plan: to f/u with Pulmonary; started on steroids Code(s): J44.9 - CHRONIC OBSTRUCTIVE PULMONARY DISEASE, UNSPECIFIED (4) CAD (coronary artery disease) Assessment/Plan: cont meds Code(s): I25.10 - ATHSCL HEART DISEASE OF [place] CORONARY ARTERY W/O ANG PCTRS (5) Hypercholesterolemia Assessment/Plan: Pt is refusing to eat Low cholesterol, low salt diet- this is going on for years ; pt is underweight for years, refusing to gain weight as he states that has negative effect on his body. Code(s): E78.0 - PURE HYPERCHOLESTEROLEMIA * DO NOT USE * (6) Seizure disorder Assessment/Plan: on Dilantin- difficult to monitor as patient is refusing blood drawing as outpt. Elevated Dilantin resolved. To start Dilantin. To monitor level; pt. refused labs today. Code(s): G40.909 - EPILEPSY, UNSP, NOT INTRACTABLE, WITHOUT STATUS EPILEPTICUS Assessment/Plan DVT proph PT AM labs
[2016-10-28] MEDS ORDERED: PT OWN MED DRAWER 7, Y5N ONE (09:59)
[2016-10-28] MEDS: cefTRIAXone 1 GM/50 ML BAG (PRE-DOCKED) IVPB SCH (10:12)
[2016-10-28] MEDS: ASPIRIN 81 MG CHEWABLE TABLETS PO SCH (10:12)
[2016-10-28] MEDS: PANTOPRAZOLE 40 MG TABLET (FP) PO SCH (10:12)
[2016-10-28] MEDS: MULTIVITAMINS (DAILY MVI) TABLET (FP) PO SCH (10:12)
[2016-10-28] MEDS: HEPARIN NA (PORCINE) 5,000 UNITS/ML 1ML VIAL SQ SCH ×2 (10:13→22:24)
[2016-10-28] MEDS: ACLIDINIUM BROMIDE 400 MCG/INH AERO.POWD IH SCH ×2 (10:16→22:00)
[2016-10-28] MEDS: PHENYTOIN NA EXTENDED 100 MG CAPSULE (FP) PO SCH ×2 (10:16→22:24)
[2016-10-28] MEDS: methylPREDNISolone NA SUCC 40 MG/1 ML VIAL IVPB SCH (10:56)
[2016-10-28] MEDS: ALBUTEROL SO4 2.5/IPRATROPIUM 0.5 INH SOL 3 ML VIAL.NEB. NEB PRN (11:05)
[2016-10-28] MEDS: MONTELUKAST NA 10 MG TABLET PO SCH (22:24)
[2016-10-28] MEDS: ATORVASTATIN CA 10 MG TABLET (FP) PO SCH (22:24)
[2016-10-29] MEDS: ACETAMINOPHEN 325 MG TABLET (FP) PO PRN ×3 (03:17→22:08)
[2016-10-29] MEDS: ALBUTEROL SO4 2.5/IPRATROPIUM 0.5 INH SOL 3 ML VIAL.NEB. NEB PRN ×3 (06:30→22:15)
[2016-10-29 08:43] LABS: MCH 27.9 pg (25.7-33.7); MCHC 32.3 g/dl (32.0-35.9); MEAN CELL VOLUME 86.6 fl (80-96); MEAN PLT VOLUME 10.9 fl (7.5-11.1); PLATELET COUNT 153 K/MM3 (134-434); RDW 13.6 % (11.9-15.9); WHITE BLOOD COUNT 14.7 K/mm3 (4.0-10.0)
[2016-10-29 09:18] LABS: ALBUMIN 2.9 g/dl (3.4-5.0); ANION GAP 11 (8-16); BILIRUBIN,TOTAL 0.5 mg/dL (0.2-1.0); CALCIUM 8.2 mg/dL (8.5-10.1); CO2 28 mmol/L (21-32); CREATININE 0.5 mg/dL (0.7-1.3); GLUCOSE,RANDOM 73 mg/dL (74-106); SGOT/AST 10 U/L (15-37); SGPT/ALT 18 U/L (12-78); TOT PROT 6.1 g/dl (6.4-8.2)
[2016-10-29 09:19] LABS: ALK PHOS 120 U/L (45-117)
[2016-10-29] MEDS: cefTRIAXone 1 GM/50 ML BAG (PRE-DOCKED) IVPB SCH (10:21)
[2016-10-29] MEDS: ASPIRIN 81 MG CHEWABLE TABLETS PO SCH (10:21)
[2016-10-29] MEDS: MULTIVITAMINS (DAILY MVI) TABLET (FP) PO SCH (10:21)
[2016-10-29] MEDS: HEPARIN NA (PORCINE) 5,000 UNITS/ML 1ML VIAL SQ SCH ×2 (10:22→22:36)
[2016-10-29] MEDS: PHENYTOIN NA EXTENDED 100 MG CAPSULE (FP) PO SCH ×2 (10:22→22:04)
[2016-10-29] MEDS: ACLIDINIUM BROMIDE 400 MCG/INH AERO.POWD IH SCH ×2 (10:22→22:04)
[2016-10-29] MEDS: PANTOPRAZOLE 40 MG TABLET (FP) PO SCH (10:22)
--- NOTE | 2016-10-29 10:37 | PN ---
Progress Note, Physician History of Present Illness: Pt. w/o SOB ( in bed most of the time), CP, palp, abd pain. Pt. with cough, sputum- no blood - Current Medication List Current Medications: Active Medications Acetaminophen (Tylenol -) 650 mg PO Q8H PRN PRN Reason: PAIN Last Admin: 10/29/16 03:17 Dose: 650 mg Aclidinium [place] (Tudorza -) 1 puff IH BID [facility] Last Admin: 10/29/16 10:22 Dose: 1 puff Albuterol/Ipratropium (Duoneb -) 1 amp NEB Q4H PRN PRN Reason: SHORTNESS OF BREATH Last Admin: 10/29/16 06:30 Dose: 1 amp Aspirin (Asa -) 81 mg PO DAILY [facility] Last Admin: 10/29/16 10:21 Dose: 81 mg Atorvastatin Calcium (Lipitor -) 10 mg PO HS [facility] Last Admin: 10/28/16 22:24 Dose: 10 mg Ceftriaxone Sodium (Rocephin 1gm Ivpb (Pre-Docked)) 1 gm IVPB DAILY [facility] PRN Reason: Protocol Last Admin: 10/29/16 10:21 Dose: 1 gm Diltiazem HCl (Cardizem Cd -) 120 mg PO DAILY [facility] Last Admin: 10/29/16 10:21 Dose: 120 mg Guaifenesin (Robitussin Dm -) 10 ml PO Q4H PRN PRN Reason: COUGH Heparin Sodium (Porcine) (Heparin -) 5,000 unit SQ BID [facility] Last Admin: 10/29/16 10:22 Dose: 5,000 unit Methylprednisolone Sodium Succinate (Solu-Medrol -) 40 mg IVPB DAILY [facility] Stop: 11/01/16 15:29 Last Admin: 10/28/16 10:56 Dose: 40 mg Montelukast Sodium (Singulair -) 10 mg PO HS [facility] Last Admin: 10/28/16 22:24 Dose: 10 mg Multivitamins/Minerals/Vitamin C (Tab-A-Vit -) 1 tab PO DAILY [facility] Last Admin: 10/29/16 10:21 Dose: 1 tab Pantoprazole Sodium (Protonix -) 40 mg PO DAILY [facility] Last Admin: 10/29/16 10:22 Dose: 40 mg Phenytoin Sodium (Dilantin -) 100 mg PO BID [facility] Last Admin: 10/29/16 10:22 Dose: 100 mg Potassium Chloride (K-Dur -) 40 meq PO ONCE ONE Stop: 10/29/16 10:21 - Objective Vital Signs: Vital Signs Temperature 98.2 F 10/29/16 07:46 Pulse Rate 68 10/29/16 07:46 Respiratory Rate 20 10/29/16 07:46 Blood Pressure 112/68 10/29/16 07:46 O2 Sat by Pulse Oximetry (%) 96 10/28/16 21:00 Constitutional: Yes: No Distress, Calm Cardiovascular: Yes: Regular Rate and Rhythm, S1, S2 Respiratory: Yes: Regular, Rales (bilat.) Gastrointestinal: Yes: Normal Bowel Sounds, Soft. No: Palpable Mass, Tenderness Edema: No Labs: CBC, BMP 10/29/16 08:00 10/29/16 08:00 Problem List - Problems (1) Pneumonia Assessment/Plan: On IV Abtx, Steroids Pulmonary consult and f/u appreciated Incentive spirometry Code(s): J18.9 - PNEUMONIA, UNSPECIFIED ORGANISM (2) Fall Assessment/Plan: no obvious trauma Code(s): W19.XXXA - UNSPECIFIED FALL, INITIAL ENCOUNTER (3) COPD (chronic obstructive pulmonary disease) Assessment/Plan: to f/u with Pulmonary; started on steroids Code(s): J44.9 - CHRONIC OBSTRUCTIVE PULMONARY DISEASE, UNSPECIFIED (4) CAD (coronary artery disease) Assessment/Plan: cont meds Code(s): I25.10 - ATHSCL HEART DISEASE OF [place] CORONARY ARTERY W/O ANG PCTRS (5) Hypercholesterolemia Assessment/Plan: Pt is refusing to eat Low cholesterol, low salt diet- this is going on for years ; pt is underweight for years, refusing to gain weight as he states that has negative effect on his body. Code(s): E78.0 - PURE HYPERCHOLESTEROLEMIA * DO NOT USE * (6) Seizure disorder Assessment/Plan: On Dilantin- difficult to monitor as patient is refusing blood drawing in outpatient settings. Elevated Dilantin resolved. To start Dilantin. To monitor level- pending. Code(s): G40.909 - EPILEPSY, UNSP, NOT INTRACTABLE, WITHOUT STATUS EPILEPTICUS (7) Hypokalemia Assessment/Plan: replete K To check Mg level To monitor level in AM Code(s): E87.6 - HYPOKALEMIA
[2016-10-29] MEDS ORDERED: POTASSIUM CHLORIDE TABS 20 MEQ TABLET.ER (FP) PO ONE (11:15)
--- NOTE | 2016-10-29 11:21 | PN ---
Progress Note (short form) - Note Progress Note: PULMONARY DAY #4 IV ROCEPHIN VSS/AFEBRILE AMBULATING WITH PT ANICTERIC/POOR DENTITION DISTANT BREATH SOUNDS/RIGHT BASE CRACKLES S1S2 BS+ NO EDEMA LABS/MEDS/MICRO/IMAGING/NOTES REVIEWED RLL CAP COPD SEIZURE DISORDER HPL ANTIBIOTICS/BRONCHODILATORS/O2 SUPPLEMENTATION SHORT COURSE STEROIDS CHANGED TO ORAL DVT PROPHYLAXSIS WOULD OPT FOR DISCHARGE PLANNING OUTPATIENT FOLLOW UP CT CHEST WILL FOLLOW W PULMONARY UPON DISCHARGE Alejo CLANCY MD Problem List - Problems (1) Pneumonia Code(s): J18.9 - PNEUMONIA, UNSPECIFIED ORGANISM (2) CAD (coronary artery disease) Code(s): I25.10 - ATHSCL HEART DISEASE OF [place] CORONARY ARTERY W/O ANG PCTRS (3) COPD (chronic obstructive pulmonary disease) Code(s): J44.9 - CHRONIC OBSTRUCTIVE PULMONARY DISEASE, UNSPECIFIED
[2016-10-29] MEDS: methylPREDNISolone NA SUCC 40 MG/1 ML VIAL IVPB SCH (11:30)
[2016-10-29] MEDS: predniSONE 20 MG TABLET (UD) PO SCH (12:44)
[2016-10-29] MEDS: MONTELUKAST NA 10 MG TABLET PO SCH (22:04)
[2016-10-29] MEDS: ATORVASTATIN CA 10 MG TABLET (FP) PO SCH (22:04)
[2016-10-30] MEDS: ALBUTEROL SO4 2.5/IPRATROPIUM 0.5 INH SOL 3 ML VIAL.NEB. NEB PRN ×2 (06:56→21:56)
[2016-10-30 09:43] LABS: CALCIUM 8.2 mg/dL (8.5-10.1); CREATININE 0.5 mg/dL (0.7-1.3)
--- NOTE | 2016-10-30 10:10 | PN ---
Progress Note (short form) - Note Progress Note: PULMONARY Denies shortness of breath. +cough improving. No fevers or chills. Last Vital Signs Temp Pulse Resp BP Pulse Ox 98.2 F 69 20 114/46 98 10/30/16 06:21 10/30/16 06:21 10/30/16 06:21 10/30/16 06:21 10/29/16 09:00 Gen: NAD at rest Heart: RRR Lung: distant breath sounds Abd: soft, nontender Ext: no edema CBC, BMP 10/29/16 08:00 10/30/16 08:20 Active Medications Acetaminophen (Tylenol -) 650 mg PO Q8H PRN PRN Reason: PAIN Last Admin: 10/29/16 22:08 Dose: 650 mg Aclidinium [place] (Tudorza -) 1 puff IH BID [facility] Last Admin: 10/29/16 22:04 Dose: 1 puff Albuterol/Ipratropium (Duoneb -) 1 amp NEB Q4H PRN PRN Reason: SHORTNESS OF BREATH Last Admin: 10/30/16 06:56 Dose: 1 amp Aspirin (Asa -) 81 mg PO DAILY [facility] Last Admin: 10/29/16 10:21 Dose: 81 mg Atorvastatin Calcium (Lipitor -) 10 mg PO HS [facility] Last Admin: 10/29/16 22:04 Dose: 10 mg Ceftriaxone Sodium (Rocephin 1gm Ivpb (Pre-Docked)) 1 gm IVPB DAILY [facility] PRN Reason: Protocol Last Admin: 10/29/16 10:21 Dose: 1 gm Diltiazem HCl (Cardizem Cd -) 120 mg PO DAILY [facility] Last Admin: 10/29/16 10:21 Dose: 120 mg Guaifenesin (Robitussin Dm -) 10 ml PO Q4H PRN PRN Reason: COUGH Heparin Sodium (Porcine) (Heparin -) 5,000 unit SQ BID [facility] Last Admin: 10/29/16 22:36 Dose: 5,000 unit Montelukast Sodium (Singulair -) 10 mg PO HS [facility] Last Admin: 10/29/16 22:04 Dose: 10 mg Multivitamins/Minerals/Vitamin C (Tab-A-Vit -) 1 tab PO DAILY [facility] Last Admin: 10/29/16 10:21 Dose: 1 tab Pantoprazole Sodium (Protonix -) 40 mg PO DAILY [facility] Last Admin: 10/29/16 10:22 Dose: 40 mg Phenytoin Sodium (Dilantin -) 100 mg PO BID [facility] Last Admin: 10/29/16 22:04 Dose: 100 mg Prednisone (Deltasone -) 20 mg PO DAILY [facility] Last Admin: 10/29/16 12:44 Dose: 20 mg A/P Pneumonia s/p Fall COPD CAD Hypercholesterolemia Seizure Disorder - continue antibiotics - inhaled bronchodilators - taper off prednisone as outpt - rehab/PT - DVT prophylaxis - can discharge home from pulmonary standpoint, will need repeat CXR in 6-8 weeks as outpt to ensure resolution of infiltrate
[2016-10-30] MEDS ORDERED: PT OWN MED DRAWER 7, Y5N ONE (10:32)
[2016-10-30] MEDS: ASPIRIN 81 MG CHEWABLE TABLETS PO SCH (10:35)
[2016-10-30] MEDS: PHENYTOIN NA EXTENDED 100 MG CAPSULE (FP) PO SCH ×2 (10:35→21:13)
[2016-10-30] MEDS: HEPARIN NA (PORCINE) 5,000 UNITS/ML 1ML VIAL SQ SCH ×2 (10:35→21:13)
[2016-10-30] MEDS: predniSONE 20 MG TABLET (UD) PO SCH (10:35)
[2016-10-30] MEDS: PANTOPRAZOLE 40 MG TABLET (FP) PO SCH (10:36)
[2016-10-30] MEDS: cefTRIAXone 1 GM/50 ML BAG (PRE-DOCKED) IVPB SCH (10:36)
[2016-10-30] MEDS: MULTIVITAMINS (DAILY MVI) TABLET (FP) PO SCH (10:36)
[2016-10-30] MEDS: ACLIDINIUM BROMIDE 400 MCG/INH AERO.POWD IH SCH ×2 (10:36→21:14)
[2016-10-30 10:49] LABS: MAGNESIUM 1.8 mg/dL (1.8-2.4)
--- NOTE | 2016-10-30 12:46 | DS ---
Physical Examination Vital Signs: Vital Signs Temperature 98.0 F 10/30/16 10:00 Pulse Rate 90 10/30/16 10:00 Respiratory Rate 20 10/30/16 10:00 Blood Pressure 137/75 10/30/16 10:00 O2 Sat by Pulse Oximetry (%) 92 L 10/30/16 09:00 Findings/Remarks: Pt. w/o SOB, CP, palp., abd pain. Pt with less cough, tolerating PT good. Constitutional: Yes: No Distress, Calm Cardiovascular: Yes: Regular Rate and Rhythm, S1, S2 Respiratory: Yes: Regular, Rhonchi (scattered, improved) Gastrointestinal: Yes: Normal Bowel Sounds, Soft. No: Palpable Mass, Tenderness Edema: No Neurological: Yes: Alert, Oriented Labs: CBC, BMP 10/29/16 08:00 10/30/16 08:20 Discharge Summary Reason For Visit: PNEUMONIA Current Active Problems Back pain (Acute) Fall (Acute) Hypokalemia (Acute) Pneumonia (Acute) Procedures: Principal: CXR. Thoracic and lumbar spine XR. Hospital Course: Pt came to ER s/p fall, weakness at home, found to have PNA. Pt was started on IV abts and steroids; Pt was seen by Pulmonary ( Dr. Christensen/ Prashanth). Pt. improved on medication. Pt. to be DC'ed home today ( he was made aware on Thursday that would be DC'ed home mid week if he continue to improve and cleared by Pulmonary). Condition: Improved - Instructions Diet, Activity, Other Instructions: Low salt, Low cholesterol. Take medication as prescribed. Repeate CXR in 6 weeks Referrals: Joshua Durán MD [Staff Physician] - (in 1 to 2 weeks) Flex Mo MD [Staff Physician] - (in 4 to 6 week) - Home Medications Comprehensive Discharge Medication List: Ambulatory Orders Albuterol 2.5/Ipratropium 0.5 [Duoneb -] 1 neb NEB Q4H PRN 06/11/14 Esomeprazole Mag Trihydrate [Nexium] 40 mg PO DAILY 06/11/14 Phenytoin Na Extended [Dilantin -] 100 mg PO BID 06/11/14 Tiotropium [place] [Spiriva] 1 inh PO DAILY 06/11/14 Acetaminophen [Tylenol .Regular Strength -] 325 mg PO Q8H #270 tablet 06/15/14 Aspirin [ASA -] 81 mg PO DAILY #90 tab.chew 06/15/14 Diltiazem HCl [Dilacor Xr] 120 mg PO DAILY #120 cap.er.deg 06/15/14 Montelukast Na [Singulair -] 10 mg PO HS #90 tablet 06/15/14 Simvastatin [Zocor -] 20 mg PO HS #90 06/15/14 Multivitamins [Multivit ([facility])] 1 tab PO DAILY #90 tab 07/19/14 Levalbuterol Tartrate [Xopenex Hfa] 15 gm IH BID 02/04/16 Azithromycin [Zithromax 250mg Tablets -] 500 mg PO DAILY #5 tablet 10/30/16 Cefpodoxime Proxetil [Vantin -] 200 mg PO Q12H #10 tablet 10/30/16 Guaifenesin Dm [Robitussin Dm -] 10 ml PO Q4H PRN #600 ml 10/30/16 Prednisone [Deltasone -] 10 mg PO DAILY #7 tablet 10/30/16
[2016-10-30] MEDS: ACETAMINOPHEN 325 MG TABLET (FP) PO PRN (20:22)
[2016-10-30] MEDS: MONTELUKAST NA 10 MG TABLET PO SCH (21:13)
[2016-10-30] MEDS: ATORVASTATIN CA 10 MG TABLET (FP) PO SCH (21:13)
[2016-10-31] MEDS: ACETAMINOPHEN 325 MG TABLET (FP) PO PRN (05:41)
[2016-10-31] MEDS ORDERED: predniSONE 20 MG TABLET (UD) PO ONE (09:10)
--- NOTE | 2016-10-31 09:18 | PN ---
Progress Note, Physician History of Present Illness: Pt. w/o SOB, CP, palp, abd pain. Pt. with cough, sputum- with sputum now. - Current Medication List Current Medications: Active Medications Acetaminophen (Tylenol -) 650 mg PO Q8H PRN PRN Reason: PAIN Last Admin: 10/31/16 05:41 Dose: 650 mg Aclidinium [place] (Tudorza -) 1 puff IH BID [facility] Last Admin: 10/30/16 21:14 Dose: 1 puff Aspirin (Asa -) 81 mg PO DAILY [facility] Last Admin: 10/30/16 10:35 Dose: 81 mg Atorvastatin Calcium (Lipitor -) 10 mg PO HS [facility] Last Admin: 10/30/16 21:13 Dose: 10 mg Azithromycin (Zithromax -) 500 mg PO DAILY [facility] Stop: 11/05/16 09:59 Cefpodoxime Proxetil (Vantin (Nf) -) 200 mg PO BID [facility] Diltiazem HCl (Cardizem Cd -) 120 mg PO DAILY [facility] Last Admin: 10/30/16 10:35 Dose: 120 mg Guaifenesin (Robitussin Dm -) 10 ml PO Q4H PRN PRN Reason: COUGH Heparin Sodium (Porcine) (Heparin -) 5,000 unit SQ BID [facility] Last Admin: 10/30/16 21:13 Dose: Not Given Montelukast Sodium (Singulair -) 10 mg PO HS [facility] Last Admin: 10/30/16 21:13 Dose: 10 mg Multivitamins/Minerals/Vitamin C (Tab-A-Vit -) 1 tab PO DAILY [facility] Last Admin: 10/30/16 10:36 Dose: 1 tab Pantoprazole Sodium (Protonix -) 40 mg PO DAILY [facility] Last Admin: 10/30/16 10:36 Dose: 40 mg Phenytoin Sodium (Dilantin -) 100 mg PO BID [facility] Last Admin: 10/30/16 21:13 Dose: 100 mg Prednisone (Deltasone -) 10 mg PO DAILY [facility] PRN Reason: Taper Stop: 11/05/16 09:59 Prednisone (Deltasone -) 20 mg PO ONCE ONE Stop: 10/31/16 09:11 - Objective Vital Signs: Vital Signs Temperature 98.0 F 10/31/16 06:25 Pulse Rate 69 10/31/16 06:25 Respiratory Rate 18 10/31/16 06:25 Blood Pressure 112/64 10/31/16 06:25 O2 Sat by Pulse Oximetry (%) 93 L 10/30/16 21:00 Constitutional: Yes: No Distress, Calm Cardiovascular: Yes: Regular Rate and Rhythm, S1, S2 Respiratory: Yes: Regular, Rhonchi (diminushed) Gastrointestinal: Yes: Normal Bowel Sounds, Soft. No: Palpable Mass, Tenderness Edema: No Neurological: Yes: Alert, Oriented Labs: CBC, BMP 10/29/16 08:00 10/30/16 08:20 Problem List - Problems (1) Pneumonia Assessment/Plan: IV Abtx, Steroids were changed to PO Pulmonary consult and f/u appreciated Incentive spirometry Code(s): J18.9 - PNEUMONIA, UNSPECIFIED ORGANISM (2) Fall Assessment/Plan: no obvious trauma Code(s): W19.XXXA - UNSPECIFIED FALL, INITIAL ENCOUNTER (3) COPD (chronic obstructive pulmonary disease) Assessment/Plan: to f/u with Pulmonary as outpatient Code(s): J44.9 - CHRONIC OBSTRUCTIVE PULMONARY DISEASE, UNSPECIFIED (4) CAD (coronary artery disease) Assessment/Plan: cont meds Code(s): I25.10 - ATHSCL HEART DISEASE OF [place] CORONARY ARTERY W/O ANG PCTRS (5) Hypercholesterolemia Code(s): E78.0 - PURE HYPERCHOLESTEROLEMIA * DO NOT USE * (6) Seizure disorder Assessment/Plan: On Dilantin- difficult to monitor as patient is refusing blood drawing in outpatient settings. Elevated Dilantin resolved. To start Dilantin. To monitor level- pending. Code(s): G40.909 - EPILEPSY, UNSP, NOT INTRACTABLE, WITHOUT STATUS EPILEPTICUS (7) Hypokalemia Code(s): E87.6 - HYPOKALEMIA (8) Severe malnutrition Assessment/Plan: Pt. is refusing to gain weight for years, states that is feeling better when he is lean; pt is aware than he is underweight Code(s): E41 - NUTRITIONAL [place] (9) Cachexia Code(s): R64 - CACHEXIA
[2016-10-31] MEDS ORDERED: CEFPODOXIME PROXETIL 100 MG TABLET PO SCH (10:00)
[2016-10-31] MEDS ORDERED: predniSONE 10 MG TABLET (UD) PO SCH (10:00)
[2016-10-31] MEDS ORDERED: AZITHROMYCIN 250 MG TABLET (FP) PO SCH (10:00)
[2016-10-31] MEDS ORDERED: PT OWN MED DRAWER 7, Y5N ONE (10:11)
[2016-10-31 10:12] VITALS: BP 96/48; PULSE 54; TEMP 97.8
[2016-10-31] MEDS: ASPIRIN 81 MG CHEWABLE TABLETS PO SCH (10:13)
[2016-10-31] MEDS: PANTOPRAZOLE 40 MG TABLET (FP) PO SCH (10:14)
[2016-10-31] MEDS: ACLIDINIUM BROMIDE 400 MCG/INH AERO.POWD IH SCH (10:14)
[2016-10-31] MEDS: MULTIVITAMINS (DAILY MVI) TABLET (FP) PO SCH (10:14)
[2016-10-31] MEDS: PHENYTOIN NA EXTENDED 100 MG CAPSULE (FP) PO SCH (10:14)
[2016-10-31] MEDS: HEPARIN NA (PORCINE) 5,000 UNITS/ML 1ML VIAL SQ SCH (10:17)
== END 2016-10-31 13:11 | disposition home or self-care (01) | DRG 190 ==
LOC: JER 14:59 → J8W 21:14
PROVIDERS: ADMIT Specialist; ATTEND Specialist
DX: J44.0 Chronic obstructive pulmonary disease with (acute) lower respiratory infection (principal); J18.9 Pneumonia, unspecified organism; E41 Nutritional marasmus; Z68.1 Body mass index [BMI] 19.9 or less, adult; M54.9 Dorsalgia, unspecified; W18.11XA Fall from or off toilet without subsequent striking against object, initial encounter; Y92.002 Bathroom of unspecified non-institutional (private) residence as the place of occurrence of the external cause; I10 Essential (primary) hypertension; G40.909 Epilepsy, unspecified, not intractable, without status epilepticus; I25.10 Atherosclerotic heart disease of native coronary artery without angina pectoris; Z95.5 Presence of coronary angioplasty implant and graft; Z99.81 Dependence on supplemental oxygen; K21.9 Gastro-esophageal reflux disease without esophagitis; E87.6 Hypokalemia
CPT/HCPCS: 36415; 71020-TC; 72070-TC; 72100-TC; 80048; 80053; 80185; 81003; 81015; 82550; 82553; 83605; 83735; 84484; 85025; 85027; 87040; 87070; 87086; 87205; 87254; 87804; 87899; 93005; 93010; 94640; 97116-GP; 97161-GP; 99281-25; J1644

== ENCOUNTER 2017-12-14 01:47 | Inpatient (IN) | payer OTHER ==
--- NOTE | 2017-12-14 02:41 | PDOC ---
History of Present Illness - General History Source: Patient Exam Limitations: No Limitations - History of Present Illness Initial Comments: 12/14/17 06:05 The patient is a 72 year old male with a significant past medical history of HLD , COPD, and seizures who presents to the ED with shortness of breath and cough for one day. The patient reports progressively worsening shortness of breath and an intermittent cough productive of clear sputum. He also reports a subjective fever associated with present symptoms. Patients last admission to the hospital was on 10/2016 for pneumonia and Strep throat. Denies chest pain or palpitations. Denies nausea, vomiting, or diarrhea. Denies dysuria or changes in urinary output. Denies any other symptoms. <Mleissa Cornelius - Last Filed: 12/14/17 06:04> <Vane Almeida - Last Filed: 12/19/17 19:54> - General Chief Complaint: Shortness of Breath Stated Complaint: DIFFICULTY BREATHING Time Seen by Provider: 12/14/17 02:35 Past History <Melissa Cornelius - Last Filed: 12/14/17 06:04> - Past Medical History Anemia: No COPD: Yes DVT: No Dialysis: No Hypercholesterolemia: Yes Kidney Stones: No Seizures: Yes - Surgical History Orthopedic Surgery: Yes (rt total hip) - Immunization History Immunization Up to Date: Yes - Suicide/Smoking/Psychosocial Hx Smoking Status: No Smoking History: Former smoker Have you smoked in the past 12 months: No Number of Cigarettes Smoked Daily: 0 If you are a former smoker, when did you quit?: 14 years Information on smoking cessation initiated: No 'Breaking Loose' booklet given: 02/04/16 Hx Alcohol Use: No Drug/Substance Use Hx: No Substance Use Type: None Hx Substance Use Treatment: No <Vane Almeida - Last Filed: 12/19/17 19:54> - Past Medical History Allergies/Adverse Reactions: Allergies Allergy/AdvReac Type Severity Reaction Status Date / Time No Known Drug Allergies Allergy Verified 12/14/17 02:08 Home Medications: Ambulatory Orders Esomeprazole Mag Trihydrate [Nexium] 40 mg PO DAILY 06/11/14 Phenytoin Na Extended [Dilantin -] 100 mg PO BID 06/11/14 Tiotropium [place] [Spiriva] 1 inh PO DAILY 06/11/14 Acetaminophen [Tylenol .Regular Strength -] 325 mg PO Q8H #270 tablet 06/15/14 Aspirin [ASA -] 81 mg PO DAILY #90 tab.chew 06/15/14 Diltiazem HCl [Dilacor Xr] 120 mg PO DAILY #120 cap.er.deg 06/15/14 Montelukast Na [Singulair -] 10 mg PO HS #90 tablet 06/15/14 Simvastatin [Zocor -] 20 mg PO HS #90 06/15/14 Levalbuterol Tartrate [Xopenex Hfa] 15 gm IH BID 02/04/16 Guaifenesin Dm [Robitussin Dm -] 10 ml PO Q4H PRN #600 ml 10/30/16 Azithromycin 500 mg PO DAILY 2 Days #2 tablet MDD 1 12/19/17 Fluticasone Prop 0.05% Nasal [Flonase -] 2 spray NS DAILY #1 spray MDD 2 Prednisone See Taper PO DAILY 10 Days #22 tablet 12/19/17 Review of Systems - Review of Systems Able to Perform ROS?: Yes Comments:: 12/14/17 06:05 CONSTITUTIONAL: + fever Absent: diaphoresis, generalized weakness, malaise, loss of appetite HEENT: Absent: rhinorrhea, nasal congestion, throat pain, throat swelling, difficulty swallowing, mouth swelling, ear pain, eye pain, visual Changes CARDIOVASCULAR: Absent: chest pain, syncope, palpitations, irregular heart rate, lightheadedness , peripheral edema RESPIRATORY: + cough, shortness of breath Absent: cough, shortness of breath, dyspnea with exertion, orthopnea, wheezing, stridor, hemoptysis GASTROINTESTINAL: Absent: abdominal pain, abdominal distension, nausea, vomiting, diarrhea, constipation, melena, hematochezia GENITOURINARY: Absent: dysuria, frequency, urgency, hesitancy, hematuria, flank pain, genital pain MUSCULOSKELETAL: Absent: myalgia, arthralgia, joint swelling SKIN: Absent: rash, itching, pallor HEMATOLOGIC/IMMUNOLOGIC: Absent: easy bleeding, easy bruising, lymphadenopathy, frequent infections ENDOCRINE: Absent: unexplained weight gain, unexplained weight loss, heat intolerance, cold intolerance NEUROLOGIC: Absent: headache, focal weakness or paresthesias, dizziness, unsteady gait, seizure, mental status changes, bladder or bowel incontinence PSYCHIATRIC: Absent: anxiety, depression, suicidal or homicidal ideation, hallucinations. All Other Systems: Reviewed and Negative <Melissa Cornelius - Last Filed: 12/14/17 06:04> *Physical Exam - Vital Signs Last Vital Signs Temp Pulse Resp BP Pulse Ox 99.1 F 75 30 H 121/63 91 L 12/14/17 02:20 12/14/17 02:20 12/14/17 02:20 12/14/17 02:20 12/14/17 02:20 - Physical Exam Comments: 12/14/17 06:05 GENERAL: + cachexia Awake and alert. No acute distress. HEENT: + dry mucous membranes Normocephalic, atraumatic. PERRLA, EOMI. No conjunctival pallor. Sclera are non- icteric. Oropharynx is clear. NECK: Supple. Full ROM. No JVD. Carotid pulses 2+ and symmetric, without bruits. No thyromegaly. No lymphadenopathy. CARDIOVASCULAR: Regular rate and rhythm. No murmurs, rubs, or gallops. Distal pulses are 2+ and symmetric. PULMONARY: + decreased breath sounds bilaterally No wheezing, rales or rhonchi. ABDOMINAL: Soft. Non-tender. Non-distended. No rebound or guarding. No organomegaly. Normoactive bowel sounds. MUSCULOSKELETAL Normal range of motion at all joints. No bony deformities or tenderness. No CVA tenderness. EXTREMITIES: No cyanosis. No clubbing. No edema. No calf tenderness. SKIN: Warm and dry. Normal capillary refill. No rashes. No jaundice. NEUROLOGICAL: Alert, awake, appropriate. Cranial nerves 2-12 intact. No deficits to light touch and temperature in face, upper extremities and lower extremities. No motor deficits in the in face, upper extremities and lower extremities. Normoreflexic in the upper and lower extremities. Normal speech. Toes are down- going bilaterally. Gait is normal without ataxia. PSYCHIATRIC: Cooperative. Good eye contact. Appropriate mood and affect. <Melissa Cornelius - Last Filed: 12/14/17 06:04> - Vital Signs Last Vital Signs Temp Pulse Resp BP Pulse Ox 99.1 F 75 30 H 121/63 91 L 12/14/17 02:20 12/14/17 02:20 12/14/17 02:20 12/14/17 02:20 12/14/17 02:20 <Vane Almeida - Last Filed: 12/19/17 19:54> Heart Score/ECG Review #1 12/14/17 06:05 Vent rate 73 bpm TX interval 183 ms QRS duration 124 ms Intraventricular conduction delay Flattened lateral Ts Reported by: Dr. Almeida <Melissa Cornelius - Last Filed: 12/14/17 06:04> ED Treatment Course - LABORATORY CBC & Chemistry Diagram: 12/14/17 03:51 12/14/17 03:51 - ADDITIONAL ORDERS Additional order review: Laboratory Results 12/14/17 12/14/17 12/14/17 03:51 03:51 03:51 PT with INR INR PTT (Actin FS) Sodium 143 Potassium 3.0 L D Chloride 110 H Carbon Dioxide 24 Anion Gap 9 BUN 7 D Creatinine 0.4 L Creat Clearance w eGFR > 60 Random Glucose 83 Calcium 8.1 L Total Bilirubin 0.2 D AST 8 L ALT 16 Alkaline Phosphatase 185 H D Creatine Kinase 60 Troponin I < 0.02 B-Natriuretic Peptide 109.55 Total Protein 7.0 Albumin 3.7 D Phenytoin 18.9 D 12/14/17 12/14/17 03:51 03:51 PT with INR 13.60 H INR 1.20 H PTT (Actin FS) 34.5 H D Sodium Potassium Chloride Carbon Dioxide Anion Gap BUN Creatinine Creat Clearance w eGFR Random Glucose Calcium Total Bilirubin AST ALT Alkaline Phosphatase Creatine Kinase Troponin I B-Natriuretic Peptide Total Protein Albumin Phenytoin 12/14/17 03:51 RBC 4.37 MCV 82.7 MCHC 33.3 RDW 14.9 MPV 9.4 D Neutrophils % 68.1 D Lymphocytes % 9.7 D Monocytes % 9.4 Eosinophils % 11.9 H D Basophils % 0.9 - Medications Given in the ED: ED Medications Discontinued Medications Generic Name Dose Route Start Last Admin Trade Name Freq PRN Reason Stop Dose Admin Albuterol/Ipratropium 1 amp 12/14/17 03:28 12/14/17 04:29 Duoneb - NEB 12/14/17 03:29 1 amp ONCE ONE Administration Magnesium Sulfate 2 gm in 50 mls @ 50 mls/hr 12/14/17 04:00 12/14/17 05:10 Magnesium Sulf 2 G/50 Ml Bag IVPB 12/14/17 04:59 50 mls/hr ONCE ONE Administration Methylprednisolone Sodium Succinate 125 mg 04/09/18 03:28 12/14/17 04:29 Solu-Medrol - IVPB 12/14/17 03:29 125 mg ONCE ONE Administration Potassium Chloride 40 meq 12/14/17 05:19 12/14/17 05:57 K-Dur - PO 12/14/17 05:20 40 meq ONCE ONE Administration <Melissa Cornelius - Last Filed: 12/14/17 06:04> - LABORATORY CBC & Chemistry Diagram: 12/16/17 07:55 12/16/17 07:55 <Vane Almeida - Last Filed: 12/19/17 19:54> Medical Decision Making - Medical Decision Making 12/14/17 06:06 Case discussed with Joshua Asencio at 06:06. <Melissa Cornelius - Last Filed: 12/14/17 06:04> - Critical Care Time Total Critical Care Time (minutes): 30 Critical Care Statement: The care of this patient involved high complexity decision making to prevent further life threatening deterioration of the patient 's condition and/or to evaluate & treat vital organ system(s) failure or risk of failure. - Medical Decision Making 12/14/17 05:59 Pt comes with SOB <Vane Almeida - Last Filed: 12/19/17 19:54> *DC/Admit/Observation/Transfer <Melissa Cornelius - Last Filed: 12/14/17 06:04> - Discharge Dispostion Admit: Yes <Vane Almeida - Last Filed: 12/19/17 19:54> Diagnosis at time of Disposition: Respiratory distress, COPD (chronic obstructive pulmonary disease), Cachexia - Discharge Dispostion Disposition: HOME Condition at time of disposition: Improved
[2017-12-14] MEDS ORDERED: MAGNESIUM SULF 50% (8.12 MEQ/2 ML-1 GM VIAL) IVPB ONE ×2 (03:27→05:19)
[2017-12-14] MEDS ORDERED: ALBUTEROL SO4 2.5/IPRATROPIUM 0.5 INH SOL 3 ML VIAL.NEB. NEB ONE ×2 (03:28→03:52)
[2017-12-14] MEDS ORDERED: methylPREDNISolone NA SUCC 125 MG/2 ML VIAL IVPB ONE (03:28)
[2017-12-14] MEDS ORDERED: methylPREDNISolone NA SUCC 125 MG/2 ML VIAL ONE (03:53)
[2017-12-14 03:59] LABS: BASO % 0.9 % (0-2.0); EOS % 11.9 % (0-4.5); HEMATOCRIT 36.2 % (35.4-49); LYMPH % 9.7 % (8-40); MCH 27.5 pg (25.7-33.7); MCHC 33.3 g/dl (32.0-35.9); MEAN CELL VOLUME 82.7 fl (80-96); MEAN PLT VOLUME 9.4 fl (7.5-11.1); MONO % 9.4 % (3.8-10.2); NEUT % 68.1 % (42.8-82.8); PLATELET COUNT 174 K/MM3 (134-434); RBC 4.37 M/mm3 (4.00-5.60); RDW 14.9 % (11.9-15.9); WHITE BLOOD COUNT 9.8 K/mm3 (4.0-10.0)
[2017-12-14] MEDS ORDERED: MAGNESIUM SULFATE IN WATER 2 GM/50 ML IVPB IVPB ONE (04:00)
[2017-12-14 04:10] LABS: INR 1.2 (0.82-1.09); PROTHROMBIN TIME (PATIENT) 13.6 SEC (9.98-11.88)
[2017-12-14 04:28] LABS: ALBUMIN 3.7 g/dl (3.4-5.0); ANION GAP 9 (8-16); BILIRUBIN,TOTAL 0.2 mg/dL (0.2-1.0); BLOOD UREA NITROGEN 7 mg/dL (7-18); CALCIUM 8.1 mg/dL (8.5-10.1); CHLORIDE 110 mmol/L (98-107); CO2 24 mmol/L (21-32); CREATININE 0.4 mg/dL (0.7-1.3); GLUCOSE,RANDOM 83 mg/dL (74-106); SGOT/AST 8 U/L (15-37); SGPT/ALT 16 U/L (12-78); SODIUM 143 mmol/L (136-145)
[2017-12-14 04:30] LABS: ALK PHOS 185 U/L (45-117)
[2017-12-14] MEDS ORDERED: MAGNESIUM SULF 50% (8.12 MEQ/2 ML-1 GM VIAL) ONE (05:02)
[2017-12-14] MEDS ORDERED: POTASSIUM CHLORIDE TABS 20 MEQ TABLET.ER (FP) PO ONE ×2 (05:19→05:51)
[2017-12-14 06:23] LABS: ARTERIAL BLD GAS O2 SATURATION 91.2 % (90-98.9); ARTERIAL BLOOD GAS BASE EXCESS -0.3 meq/l (-2-2); ARTERIAL BLOOD GAS PCO2 39.9 mmHg (35-45); ARTERIAL BLOOD GAS PO2 61.6 mmHg (70-100)
[2017-12-14 06:24] LABS: ALLENS TEST POSITIVE
[2017-12-14] MEDS: POTASSIUM CHLORIDE 10 MEQ in SODIUM CHLORIDE 100 ML IVPB SCH ×3 (08:15→13:09)
[2017-12-14 11:31] VITALS: BMI 19.0
--- NOTE | 2017-12-14 11:36 | HP ---
Admitting History and Physical - Primary Care Physician PCP: Joshua Durán - Admission Chief Complaint: SOB, Wheezing, cough History of Present Illness: Pt with 1-2 days history of cough and SOB and wheezing, getting worse, called EMS because he needed "oxygen to breath better". In ER he was found to be in acute COPD exacerbation. History Source: Patient - Past Medical History Cardiovascular: Yes: CAD (s/p PCI with cardiac stent), HTN, Hyperlipdemia Pulmonary: Yes: COPD, O2 Dependent Gastrointestinal: Yes: GERD - Past Surgical History Past Surgical History: Yes: Joint Replacement - Smoking History Smoking history: Former smoker Have you smoked in the past 12 months: No Aproximately how many cigarettes per day: 0 If you are a former smoker, when did you quit?: 14 years - Alcohol/Substance Use Hx Alcohol Use: No - Social History History of Recent Travel: No Home Medications - Allergies Allergies/Adverse Reactions: Allergies Allergy/AdvReac Type Severity Reaction Status Date / Time No Known Drug Allergies Allergy Verified 12/14/17 02:08 - Home Medications Home Medications: Ambulatory Orders Esomeprazole Mag Trihydrate [Nexium] 40 mg PO DAILY 06/11/14 Phenytoin Na Extended [Dilantin -] 100 mg PO BID 06/11/14 Tiotropium [place] [Spiriva] 1 inh PO DAILY 06/11/14 Acetaminophen [Tylenol .Regular Strength -] 325 mg PO Q8H #270 tablet 06/15/14 Aspirin [ASA -] 81 mg PO DAILY #90 tab.chew 06/15/14 Diltiazem HCl [Dilacor Xr] 120 mg PO DAILY #120 cap.er.deg 06/15/14 Montelukast Na [Singulair -] 10 mg PO HS #90 tablet 06/15/14 Simvastatin [Zocor -] 20 mg PO HS #90 06/15/14 Levalbuterol Tartrate [Xopenex Hfa] 15 gm IH BID 02/04/16 Guaifenesin Dm [Robitussin Dm -] 10 ml PO Q4H PRN #600 ml 10/30/16 Fexofenadine/Pseudoephedrine [[place]-D 12 Hour Tablet] 1 each PO BID 12/14/17 Review of Systems - Review of Systems Constitutional: denies: Chills, Fever Eyes: denies: Blurred Vision, Recent Change in Vision HENT: denies: Ear Discharge, Nasal Congestion, Throat Pain Neck: denies: Decreased ROM, Stiffness Cardiovascular: denies: Chest Pain, Edema, Palpitations Respiratory: reports: Cough, SOB, Wheezing Gastrointestinal: denies: Abdominal Pain, Diarrhea, Vomiting Genitourinary: denies: Burning, Frequency Musculoskeletal: denies: Back Pain, Extremity Pain Integumentary: denies: Bruising, Eczema, Rash Neurological: denies: Change in LOC, Change in Speech, Numbness Endocrine: denies: Excessive Sweating, Intolerance to Cold Hematology/Lymphatic: denies: Easily Bruised, Excessive Bleeding Psychiatric: denies: Anxiety, Depression Physical Examination Vital Signs: Vital Signs Temperature 98.2 F 12/14/17 10:52 Pulse Rate 76 12/14/17 10:52 Respiratory Rate 18 12/14/17 10:52 Blood Pressure 129/66 12/14/17 10:52 O2 Sat by Pulse Oximetry (%) 98 12/14/17 10:52 Constitutional: Yes: No Distress, Calm Eyes: Yes: Conjunctiva Clear, EOM Intact HENT: Yes: Normocephalic. No: Drooling, Pharyngeal Erythema, Rhinnorhea Neck: Yes: Trachea Midline. No: Lymphadenopathy Cardiovascular: Yes: Regular Rate and Rhythm, S1, S2 Respiratory: Yes: Regular, Rhonchi, Wheezes (in upper lung trujillo) Gastrointestinal: Yes: Normal Bowel Sounds, Soft. No: Tenderness ...Rectal Exam: Yes: Deferred Renal/: No: CVA Tenderness - Left, CVA Tenderness - Right Musculoskeletal: No: Back Pain, Joint Swelling Extremities: No: Cold, Cool Edema: No Peripheral Pulses: Left Radial: 2+, Right Radial: 2+ Integumentary: No: Bruising, Jaundice, Rash Neurological: Yes: Alert, Oriented Psychiatric: Yes: Alert, Oriented Labs: CBC, BMP 12/14/17 03:51 12/14/17 03:51 Imaging - Results Chest X-ray: Report Reviewed Problem List - Problems (1) Acute hypoxemic respiratory failure Code(s): J96.01 - ACUTE RESPIRATORY FAILURE WITH HYPOXIA (2) Acute exacerbation of chronic obstructive pulmonary disease (COPD) Code(s): J44.1 - CHRONIC OBSTRUCTIVE PULMONARY DISEASE W (ACUTE) EXACERBATION (3) Acute chronic obstructive pulmonary disease with respiratory failure Code(s): J96.00 - ACUTE RESPIRATORY FAILURE, UNSP W HYPOXIA OR HYPERCAPNIA; J44.9 - CHRONIC OBSTRUCTIVE PULMONARY DISEASE, UNSPECIFIED (4) CAD (coronary artery disease) Code(s): I25.10 - ATHSCL HEART DISEASE OF [place] CORONARY ARTERY W/O ANG PCTRS (5) Cachexia Code(s): R64 - CACHEXIA (6) Seizure disorder Code(s): G40.909 - EPILEPSY, UNSP, NOT INTRACTABLE, WITHOUT STATUS EPILEPTICUS Assessment/Plan IV steroids. Albuterol nebulized O2 supplementation. Pulmonary consult. DVT prophylaxis AM labs
[2017-12-14] MEDS ORDERED: guaiFENesin/D-METHORPHAN HB 10 ML UNIT-DOSE CUPS PO PRN (11:43)
[2017-12-14] MEDS ORDERED: PT OWN MED DRAWER 7, Y5N ONE ×2 (12:33→20:53)
[2017-12-14] MEDS: PANTOPRAZOLE 40 MG TABLET (FP) PO SCH (12:41)
[2017-12-14] MEDS: ASPIRIN 81 MG CHEWABLE TABLETS PO SCH (12:42)
[2017-12-14] MEDS: ACETAMINOPHEN 325 MG TABLET (FP) PO SCH ×2 (12:42→21:03)
[2017-12-14] MEDS: HEPARIN NA (PORCINE) 5,000 UNITS/ML 1ML VIAL SQ SCH ×3 (12:43→21:09)
--- NOTE | 2017-12-14 12:43 | PN ---
Progress Note (short form) - Note Progress Note: PULMONARY CONSULTATION DICTATED 12/14/17 IMP COPD EXACERBATION URI SEIZURE DISORDER HLD H/O PNEUMONIA H/O DVT PLAN IV STEROIDS INHALED BRONCHODILATORS O2 ABX CHEST CT MONITOR APRIL LOPEZ Problem List - Problems (1) Acute exacerbation of chronic obstructive pulmonary disease (COPD) Code(s): J44.1 - CHRONIC OBSTRUCTIVE PULMONARY DISEASE W (ACUTE) EXACERBATION (2) Respiratory distress Code(s): R06.00 - DYSPNEA, UNSPECIFIED (3) CAD (coronary artery disease) Code(s): I25.10 - ATHSCL HEART DISEASE OF [place] CORONARY ARTERY W/O ANG PCTRS (4) Cough Code(s): R05 - COUGH (5) HTN (hypertension) Code(s): I10 - ESSENTIAL (PRIMARY) HYPERTENSION (6) Seizure disorder Code(s): G40.909 - EPILEPSY, UNSP, NOT INTRACTABLE, WITHOUT STATUS EPILEPTICUS
--- NOTE | 2017-12-14 13:23 | CONS ---
DATE OF CONSULTATION: 12/14/2017 REFERRING PHYSICIAN: Joshua Durán MD HISTORY: The patient is a 72-year-old black male known to me from previous hospitalizations with a past medical history of end COPD, seizure disorder, pneumonia, hyperlipidemia admitted to [facility] on December 14 with complaint of increasing shortness of breath, cough, chest congestion. The patient states for the past 2 days he has been having increasing shortness of breath and cough productive of clear sputum. Denies any chest pain or palpitations. He did have subjective fever. He denied any chills, nausea, vomiting, or diaphoresis. The patient denies any recent travel. There is no history of DVT or PE in the past. PAST MEDICAL HISTORY: Again includes hyperlipidemia, COPD, seizures. SOCIAL HISTORY: History of tobacco use. Quit years ago. No occupational exposures. REVIEW OF SYSTEMS: Positive shortness of breath. Positive cough. No chest pain or palpitations. No wheezing. No nausea, no vomiting, no abdominal pain. CURRENT MEDICATIONS: Prior to admission include prednisone 10 mg daily, guaifenesin, Vantin, Zithromax, , Spiriva, DuoNeb, , Singulair, Zocor. Current medications include Solu-Medrol 40 daily, Spiriva, Robitussin, Cardizem CD, Lipitor, Dilantin, Singulair, aspirin, Protonix. PHYSICAL EXAMINATION: General: The patient is a thin white male awake, alert in no acute distress. Vital Signs: He is currently afebrile. Blood pressure 123/63, respiratory rate 18, O2 saturation 98% on 3 L. HEENT: Normocephalic and atraumatic. Neck: Supple. Heart: Regular S1, S2. Chest: Scattered wheezes bilaterally. Abdomen: Soft. Bowel sounds positive. Extremities: No cyanosis or edema. LABORATORIES: WBC 9.8, hemoglobin 12, hematocrit 36.2 with a platelet count of 174,000. Venous blood gas: PH 7.40, PCO2 of 39, PO2 of 61, bicarbonate 23, and saturation 91. Other labs include chemistries: Potassium 3, BUN 7, creatinine 0.4. Chest x-ray: Chronic changes bilaterally. No acute infiltrates and/or effusions. IMPRESSION: 1. Chronic obstructive pulmonary disease with acute exacerbation. 2. History of seizures. 3. History of pneumonia. 4. Hyperlipidemia. PLAN: Continue IV steroids, inhaled bronchodilators, supplemental O2, follow up chest CT. ITZEL LOPEZ M.D. CHUCK/[id number]
[2017-12-14] MEDS ORDERED: POTASSIUM CHLORIDE 10 MEQ in SODIUM CHLORIDE 100 ML IVPB ONE (14:00)
[2017-12-14] MEDS: PHENYTOIN NA EXTENDED 100 MG CAPSULE (FP) PO SCH ×2 (14:24→21:05)
[2017-12-14] MEDS: TIOTROPIUM BROMIDE 18 MCG CAPSULES IH SCH (14:40)
[2017-12-14] MEDS: AZITHROMYCIN IVPB 500 MG in SODIUM CHLORIDE 250 ML IVPB SCH (15:57)
[2017-12-14] MEDS: methylPREDNISolone NA SUCC 40 MG/1 ML VIAL IVPUSH SCH ×2 (15:57→21:04)
[2017-12-14] MEDS: MONTELUKAST NA 10 MG TABLET PO SCH (21:04)
[2017-12-14] MEDS: ATORVASTATIN CA 10 MG TABLET (FP) PO SCH (21:04)
[2017-12-14 22:13] LABS: URINE APPEARANCE CLEAR; URINE BILIRUBIN NEGATIVE (<2.0 mg/dL); URINE COLOR YELLOW; URINE GLUCOSE (UA) NEGATIVE (NEGATIVE); URINE KETONE NEGATIVE (NEGATIVE); URINE LEUK ESTERASE TRACE (NEGATIVE); URINE NITRITE NEGATIVE (NEGATIVE); URINE PROTEIN NEGATIVE (NEGATIVE)
[2017-12-14 22:19] LABS: EPI CELLS RARE /HPF (FEW); URINE HYALINE CAST 1 /lpf; URINE MUCUS RARE
[2017-12-14 22:21] LABS: CARBOXYHEMOGLOBIN 1.5 gm% (0.5-2.0)
--- NOTE | 2017-12-14 23:49 | EKG ---
Test Reason : Blood Pressure : / mmHG Vent. 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
[2017-12-15] MEDS: ACETAMINOPHEN 325 MG TABLET (FP) PO SCH ×3 (02:53→21:10)
[2017-12-15] MEDS: methylPREDNISolone NA SUCC 40 MG/1 ML VIAL IVPUSH SCH ×4 (02:53→21:10)
[2017-12-15 08:28] LABS: HEMATOCRIT 34.8 % (35.4-49); HEMOGLOBIN 11.6 GM/dL (11.7-16.9); MCH 27.7 pg (25.7-33.7); MCHC 33.3 g/dl (32.0-35.9); MEAN CELL VOLUME 83.2 fl (80-96); MEAN PLT VOLUME 9.9 fl (7.5-11.1); PLATELET COUNT 167 K/MM3 (134-434); RBC 4.18 M/mm3 (4.00-5.60); RDW 14.8 % (11.9-15.9); WHITE BLOOD COUNT 10.4 K/mm3 (4.0-10.0)
[2017-12-15 08:35] LABS: ALBUMIN 3.3 g/dl (3.4-5.0); ANION GAP 9 (8-16); BLOOD UREA NITROGEN 13 mg/dL (7-18); CALCIUM 8.7 mg/dL (8.5-10.1); CHLORIDE 109 mmol/L (98-107); CO2 25 mmol/L (21-32); CREATININE 0.4 mg/dL (0.7-1.3); GLUCOSE,RANDOM 118 mg/dL (74-106); POTASSIUM 5.1 mmol/L (3.5-5.1); SGOT/AST 14 U/L (15-37); SGPT/ALT 12 U/L (12-78); SODIUM 143 mmol/L (136-145); TOT PROT 6.4 g/dl (6.4-8.2)
[2017-12-15 08:37] LABS: ALK PHOS 178 U/L (45-117); BILIRUBIN,TOTAL 0.3 mg/dL (0.2-1.0)
[2017-12-15] MEDS ORDERED: PT OWN MED DRAWER 7, Y5N ONE (10:27)
[2017-12-15] MEDS: ASPIRIN 81 MG CHEWABLE TABLETS PO SCH (10:41)
[2017-12-15] MEDS: TIOTROPIUM BROMIDE 18 MCG CAPSULES IH SCH (10:41)
[2017-12-15] MEDS: PANTOPRAZOLE 40 MG TABLET (FP) PO SCH (10:42)
[2017-12-15] MEDS: HEPARIN NA (PORCINE) 5,000 UNITS/ML 1ML VIAL SQ SCH ×2 (10:42→21:10)
[2017-12-15] MEDS: PHENYTOIN NA EXTENDED 100 MG CAPSULE (FP) PO SCH ×2 (10:43→21:13)
[2017-12-15] MEDS: AZITHROMYCIN IVPB 500 MG in SODIUM CHLORIDE 250 ML IVPB SCH (10:44)
--- NOTE | 2017-12-15 15:21 | PN ---
Progress Note (short form) - Note Progress Note: Breathing feels a little better. No significant change in cough with white/clear sputum. No CP. Intake & Output 12/12/17 12/13/17 12/14/17 12/15/17 23:59 23:59 23:59 23:59 Intake Total 1750 245 Output Total 900 Balance 850 245 Weight 125 lb Last Vital Signs Temp Pulse Resp BP Pulse Ox 97.6 F 83 18 132/72 100 12/15/17 06:00 12/15/17 09:00 12/15/17 09:00 12/15/17 09:00 12/15/17 09:00 Active Medications Acetaminophen (Tylenol -) 325 mg PO Q8H [facility] Last Admin: 12/15/17 10:48 Dose: 325 mg Aspirin (Asa -) 81 mg PO DAILY [facility] Last Admin: 12/15/17 10:41 Dose: 81 mg Atorvastatin Calcium (Lipitor -) 10 mg PO HS [facility] Last Admin: 12/14/17 21:04 Dose: 10 mg Diltiazem HCl (Cardizem Cd -) 120 mg PO DAILY [facility] Last Admin: 12/15/17 10:49 Dose: 120 mg Guaifenesin (Robitussin Dm -) 10 ml PO Q4H PRN PRN Reason: COUGH Heparin Sodium (Porcine) (Heparin -) 5,000 unit SQ BID [facility] Last Admin: 12/15/17 10:42 Dose: Not Given Azithromycin 500 mg/ Sodium (Chloride) 250 mls @ 250 mls/hr IVPB DAILY [facility] Last Admin: 12/15/17 10:44 Dose: 250 mls/hr Methylprednisolone Sodium Succinate (Solu-Medrol -) 40 mg IVPUSH Q6H-IV [facility] Last Admin: 12/15/17 10:42 Dose: 40 mg Montelukast Sodium (Singulair -) 10 mg PO HS [facility] Last Admin: 12/14/17 21:04 Dose: 10 mg Pantoprazole Sodium (Protonix -) 40 mg PO DAILY [facility] Last Admin: 12/15/17 10:42 Dose: 40 mg Phenytoin Sodium (Dilantin -) 100 mg PO BID [facility] Last Admin: 12/15/17 10:43 Dose: 100 mg Tiotropium [place] (Spiriva -) 1 puff IH DAILY [facility] Last Admin: 12/15/17 10:41 Dose: 1 puff Constitutional: Yes: No Distress, Thin Eyes: Yes: Conjunctiva Clear, EOM Intact HENT: Yes: Normocephalic. No: Drooling, Pharyngeal Erythema, Rhinnorhea Neck: Yes: Trachea Midline. No: Lymphadenopathy Cardiovascular: Yes: Regular Rate and Rhythm, S1, S2 Respiratory: Yes: Scattered Rhonchi and Expiratory Wheezes Gastrointestinal: Yes: Normal Bowel Sounds, Soft. No: Tenderness ...Rectal Exam: Yes: Deferred Renal/: No: CVA Tenderness - Left, CVA Tenderness - Right Musculoskeletal: No: Back Pain, Joint Swelling Extremities: No: Cold, Cool Edema: No Peripheral Pulses: Left Radial: 2+, Right Radial: 2+ Integumentary: No: Bruising, Jaundice, Rash Neurological: Yes: Alert, Oriented Psychiatric: Yes: Alert, Oriented Labs: Laboratory Results - last 24 hr 12/14/17 12/14/17 12/15/17 18:14 21:40 07:30 WBC 10.4 H RBC 4.18 Hgb 11.6 L Hct 34.8 L MCV 83.2 MCH 27.7 MCHC 33.3 RDW 14.8 Plt Count 167 MPV 9.9 Carboxyhemoglobin 1.5 Methemoglobin 1.1 Sodium Potassium Chloride Carbon Dioxide Anion Gap BUN Creatinine Creat Clearance w eGFR Random Glucose Calcium Total Bilirubin AST ALT Alkaline Phosphatase Total Protein Albumin Urine Color Yellow Urine Appearance Clear Urine pH 5.0 Ur Specific [place] 1.024 Urine Protein Negative Urine Glucose (UA) Negative Urine Ketones Negative Urine Blood 1+ H Urine Nitrite Negative Urine Bilirubin Negative Urine Urobilinogen 2.0 Ur Leukocyte Esterase Trace Urine WBC (Auto) 4 Urine RBC (Auto) 2 Ur Epithelial Cells Rare Hyaline Casts 1 Urine Mucus Rare 12/15/17 07:30 WBC RBC Hgb Hct MCV MCH MCHC RDW Plt Count MPV Carboxyhemoglobin Methemoglobin Sodium 143 Potassium 5.1 D Chloride 109 H Carbon Dioxide 25 Anion Gap 9 BUN 13 D Creatinine 0.4 L Creat Clearance w eGFR > 60 Random Glucose 118 H D Calcium 8.7 Total Bilirubin 0.3 D AST 14 L D ALT 12 D Alkaline Phosphatase 178 H Total Protein 6.4 Albumin 3.3 L Urine Color Urine Appearance Urine pH Ur Specific [place] Urine Protein Urine Glucose (UA) Urine Ketones Urine Blood Urine Nitrite Urine Bilirubin Urine Urobilinogen Ur Leukocyte Esterase Urine WBC (Auto) Urine RBC (Auto) Ur Epithelial Cells Hyaline Casts Urine Mucus Problem List - Problems (1) Acute exacerbation of chronic obstructive pulmonary disease (COPD) Code(s): J44.1 - CHRONIC OBSTRUCTIVE PULMONARY DISEASE W (ACUTE) EXACERBATION (2) Respiratory distress Code(s): R06.00 - DYSPNEA, UNSPECIFIED (3) CAD (coronary artery disease) Code(s): I25.10 - ATHSCL HEART DISEASE OF [place] CORONARY ARTERY W/O ANG PCTRS (4) Cough Code(s): R05 - COUGH (5) HTN (hypertension) Code(s): I10 - ESSENTIAL (PRIMARY) HYPERTENSION (6) Seizure disorder Code(s): G40.909 - EPILEPSY, UNSP, NOT INTRACTABLE, WITHOUT STATUS EPILEPTICUS IMP COPD EXACERBATION URI SEIZURE DISORDER HLD H/O PNEUMONIA H/O DVT PLAN IV STEROIDS INHALED BRONCHODILATORS O2 ZITHROMAX SPIRIVA BD TX SINGULAIR Dr Garay
[2017-12-15] MEDS ORDERED: ALBUTEROL SO4 0.083% IH SOL 2.5 MG/3 ML VIAL.NEB. NEB PRN (15:27)
[2017-12-15] MEDS: ATORVASTATIN CA 10 MG TABLET (FP) PO SCH (21:10)
[2017-12-15] MEDS: MONTELUKAST NA 10 MG TABLET PO SCH (21:10)
[2017-12-15] MEDS: ALBUTEROL SO4 0.083% IH SOL 2.5 MG/3 ML VIAL.NEB. NEB SCH (21:45)
--- NOTE | 2017-12-15 22:58 | PN ---
Progress Note, Physician History of Present Illness: Pt's breathing is slightly better. Pt w/o CP, palpitations, abd pain. Pt is asking to have diet changed to regular, states that doesn't want low salt / cholesterol (pt is aware of importnace of diet in managing heart disease). - Current Medication List Current Medications: Active Medications Acetaminophen (Tylenol -) 325 mg PO Q8H [facility] Last Admin: 12/15/17 21:10 Dose: 325 mg Albuterol Sulfate (Ventolin 0.083% Nebulizer Soln -) 1 amp NEB RTID [facility] Last Admin: 12/15/17 21:45 Dose: 1 amp Albuterol Sulfate (Ventolin 0.083% Nebulizer Soln -) 1 amp NEB Q4H PRN PRN Reason: SHORT OF BREATH/WHEEZING Aspirin (Asa -) 81 mg PO DAILY [facility] Last Admin: 12/15/17 10:41 Dose: 81 mg Atorvastatin Calcium (Lipitor -) 10 mg PO HS [facility] Last Admin: 12/15/17 21:10 Dose: 10 mg Diltiazem HCl (Cardizem Cd -) 120 mg PO DAILY [facility] Last Admin: 12/15/17 10:49 Dose: 120 mg Guaifenesin (Robitussin Dm -) 10 ml PO Q4H PRN PRN Reason: COUGH Heparin Sodium (Porcine) (Heparin -) 5,000 unit SQ BID [facility] Last Admin: 12/15/17 21:10 Dose: Not Given Azithromycin 500 mg/ Sodium (Chloride) 250 mls @ 250 mls/hr IVPB DAILY [facility] Last Admin: 12/15/17 10:44 Dose: 250 mls/hr Methylprednisolone Sodium Succinate (Solu-Medrol -) 40 mg IVPUSH Q6H-IV [facility] Last Admin: 12/15/17 21:10 Dose: 40 mg Montelukast Sodium (Singulair -) 10 mg PO HS [facility] Last Admin: 12/15/17 21:10 Dose: 10 mg Pantoprazole Sodium (Protonix -) 40 mg PO DAILY [facility] Last Admin: 12/15/17 10:42 Dose: 40 mg Phenytoin Sodium (Dilantin -) 100 mg PO BID [facility] Last Admin: 12/15/17 21:13 Dose: 100 mg Tiotropium [place] (Spiriva -) 1 puff IH DAILY [facility] Last Admin: 12/15/17 10:41 Dose: 1 puff - Objective Vital Signs: Vital Signs Temperature 97.3 F L 12/15/17 18:01 Pulse Rate 55 L 12/15/17 18:01 Respiratory Rate 20 12/15/17 18:01 Blood Pressure 109/58 12/15/17 18:01 O2 Sat by Pulse Oximetry (%) 100 12/15/17 09:00 Constitutional: Yes: No Distress, Calm Cardiovascular: Yes: Regular Rate and Rhythm, S1, S2 Respiratory: Yes: Regular, Rhonchi Gastrointestinal: Yes: Normal Bowel Sounds, Soft. No: Tenderness Edema: No Neurological: Yes: Alert, Oriented Labs: CBC, BMP 12/15/17 07:30 12/15/17 07:30 INR, PTT INR 1.20 (0.82-1.09) H 12/14/17 03:51 Problem List - Problems (1) Acute hypoxemic respiratory failure Code(s): J96.01 - ACUTE RESPIRATORY FAILURE WITH HYPOXIA (2) Acute exacerbation of chronic obstructive pulmonary disease (COPD) Code(s): J44.1 - CHRONIC OBSTRUCTIVE PULMONARY DISEASE W (ACUTE) EXACERBATION (3) Acute chronic obstructive pulmonary disease with respiratory failure Code(s): J96.00 - ACUTE RESPIRATORY FAILURE, UNSP W HYPOXIA OR HYPERCAPNIA; J44.9 - CHRONIC OBSTRUCTIVE PULMONARY DISEASE, UNSPECIFIED (4) CAD (coronary artery disease) Code(s): I25.10 - ATHSCL HEART DISEASE OF [place] CORONARY ARTERY W/O ANG PCTRS (5) Cachexia Code(s): R64 - CACHEXIA (6) Seizure disorder Code(s): G40.909 - EPILEPSY, UNSP, NOT INTRACTABLE, WITHOUT STATUS EPILEPTICUS (7) URI (upper respiratory infection) Assessment/Plan: on Zithromax Code(s): J06.9 - ACUTE UPPER RESPIRATORY INFECTION, UNSPECIFIED Assessment/Plan IV steroids. Albuterol nebulized O2 supplementation. Pulmonary consult appreciated. DVT prophylaxis AM labs
[2017-12-16] MEDS: methylPREDNISolone NA SUCC 40 MG/1 ML VIAL IVPUSH SCH ×4 (02:21→18:23)
[2017-12-16] MEDS: ACETAMINOPHEN 325 MG TABLET (FP) PO SCH ×3 (05:46→20:36)
[2017-12-16 08:36] LABS: HEMATOCRIT 35.1 % (35.4-49); HEMOGLOBIN 11.3 GM/dL (11.7-16.9); MCH 26.4 pg (25.7-33.7); MCHC 32.3 g/dl (32.0-35.9); MEAN PLT VOLUME 9.9 fl (7.5-11.1); PLATELET COUNT 180 K/MM3 (134-434); RBC 4.28 M/mm3 (4.00-5.60); RDW 14.6 % (11.9-15.9); WHITE BLOOD COUNT 13.6 K/mm3 (4.0-10.0)
[2017-12-16 09:06] LABS: ANION GAP 9 (8-16); BLOOD UREA NITROGEN 17 mg/dL (7-18); CALCIUM 8.5 mg/dL (8.5-10.1); CHLORIDE 106 mmol/L (98-107); CO2 26 mmol/L (21-32); CREATININE 0.4 mg/dL (0.7-1.3); GLUCOSE,RANDOM 118 mg/dL (74-106); POTASSIUM 4.3 mmol/L (3.5-5.1); SGOT/AST 7 U/L (15-37); SGPT/ALT 11 U/L (12-78); SODIUM 141 mmol/L (136-145)
[2017-12-16 09:08] LABS: ALK PHOS 153 U/L (45-117); BILIRUBIN,TOTAL 0.2 mg/dL (0.2-1.0); TOT PROT 6.2 g/dl (6.4-8.2)
[2017-12-16] MEDS: ALBUTEROL SO4 0.083% IH SOL 2.5 MG/3 ML VIAL.NEB. NEB SCH ×3 (10:00→20:30)
--- NOTE | 2017-12-16 10:10 | PN ---
Progress Note, Physician History of Present Illness: Pt's breathing is slightly better. Pt w/o CP, palpitations, abd pain. - Current Medication List Current Medications: Active Medications Acetaminophen (Tylenol -) 325 mg PO Q8H [facility] Last Admin: 12/16/17 05:46 Dose: Not Given Albuterol Sulfate (Ventolin 0.083% Nebulizer Soln -) 1 amp NEB RTID [facility] Last Admin: 12/16/17 10:00 Dose: 1 amp Albuterol Sulfate (Ventolin 0.083% Nebulizer Soln -) 1 amp NEB Q4H PRN PRN Reason: SHORT OF BREATH/WHEEZING Aspirin (Asa -) 81 mg PO DAILY [facility] Last Admin: 12/15/17 10:41 Dose: 81 mg Atorvastatin Calcium (Lipitor -) 10 mg PO HS [facility] Last Admin: 12/15/17 21:10 Dose: 10 mg Diltiazem HCl (Cardizem Cd -) 120 mg PO DAILY [facility] Last Admin: 12/15/17 10:49 Dose: 120 mg Guaifenesin (Robitussin Dm -) 10 ml PO Q4H PRN PRN Reason: COUGH Heparin Sodium (Porcine) (Heparin -) 5,000 unit SQ BID [facility] Last Admin: 12/15/17 21:10 Dose: Not Given Azithromycin 500 mg/ Sodium (Chloride) 250 mls @ 250 mls/hr IVPB DAILY [facility] Last Admin: 12/15/17 10:44 Dose: 250 mls/hr Methylprednisolone Sodium Succinate (Solu-Medrol -) 40 mg IVPUSH Q6H-IV [facility] Last Admin: 12/16/17 02:21 Dose: 40 mg Montelukast Sodium (Singulair -) 10 mg PO HS [facility] Last Admin: 12/15/17 21:10 Dose: 10 mg Pantoprazole Sodium (Protonix -) 40 mg PO DAILY [facility] Last Admin: 12/15/17 10:42 Dose: 40 mg Phenytoin Sodium (Dilantin -) 100 mg PO BID [facility] Last Admin: 12/15/17 21:13 Dose: 100 mg Tiotropium [place] (Spiriva -) 1 puff IH DAILY [facility] Last Admin: 12/15/17 10:41 Dose: 1 puff - Objective Vital Signs: Vital Signs Temperature 97.9 F 12/16/17 06:00 Pulse Rate 60 12/16/17 06:00 Respiratory Rate 20 04/11/18 06:00 Blood Pressure 128/53 12/16/17 06:00 O2 Sat by Pulse Oximetry (%) 100 12/15/17 21:00 Constitutional: Yes: No Distress, Calm Cardiovascular: Yes: Regular Rate and Rhythm, S1, S2 Respiratory: Yes: Regular, Rhonchi (scattered) Gastrointestinal: Yes: Normal Bowel Sounds, Soft. No: Tenderness Edema: No Neurological: Yes: Alert, Oriented Labs: CBC, BMP 12/16/17 07:55 12/16/17 07:55 INR, PTT INR 1.20 (0.82-1.09) H 12/14/17 03:51 Problem List - Problems (1) Acute hypoxemic respiratory failure Code(s): J96.01 - ACUTE RESPIRATORY FAILURE WITH HYPOXIA (2) Acute exacerbation of chronic obstructive pulmonary disease (COPD) Code(s): J44.1 - CHRONIC OBSTRUCTIVE PULMONARY DISEASE W (ACUTE) EXACERBATION (3) Acute chronic obstructive pulmonary disease with respiratory failure Code(s): J96.00 - ACUTE RESPIRATORY FAILURE, UNSP W HYPOXIA OR HYPERCAPNIA; J44.9 - CHRONIC OBSTRUCTIVE PULMONARY DISEASE, UNSPECIFIED (4) CAD (coronary artery disease) Code(s): I25.10 - ATHSCL HEART DISEASE OF [place] CORONARY ARTERY W/O ANG PCTRS (5) Cachexia Code(s): R64 - CACHEXIA (6) Seizure disorder Code(s): G40.909 - EPILEPSY, UNSP, NOT INTRACTABLE, WITHOUT STATUS EPILEPTICUS (7) URI (upper respiratory infection) Code(s): J06.9 - ACUTE UPPER RESPIRATORY INFECTION, UNSPECIFIED Assessment/Plan IV steroids- to migd[place] to Q8H. Albuterol nebulized O2 supplementation. Pulmonary consult appreciated. DVT prophylaxis AM labs PT eval, OOBTC
[2017-12-16] MEDS: TIOTROPIUM BROMIDE 18 MCG CAPSULES IH SCH (11:01)
[2017-12-16] MEDS: AZITHROMYCIN IVPB 500 MG in SODIUM CHLORIDE 250 ML IVPB SCH (11:01)
[2017-12-16] MEDS: ASPIRIN 81 MG CHEWABLE TABLETS PO SCH (11:02)
[2017-12-16] MEDS: PANTOPRAZOLE 40 MG TABLET (FP) PO SCH (11:02)
[2017-12-16] MEDS: HEPARIN NA (PORCINE) 5,000 UNITS/ML 1ML VIAL SQ SCH ×2 (11:03→21:22)
[2017-12-16] MEDS: PHENYTOIN NA EXTENDED 100 MG CAPSULE (FP) PO SCH ×2 (11:03→21:21)
[2017-12-16] MEDS ORDERED: PT OWN MED DRAWER 7, Y5N ONE ×2 (11:20→18:09)
--- NOTE | 2017-12-16 13:25 | PN ---
Progress Note, Physician History of Present Illness: pulmonary alert,feeling better,less congested,less cough - Current Medication List Current Medications: Active Medications Acetaminophen (Tylenol -) 325 mg PO Q8H [facility] Last Admin: 12/16/17 11:02 Dose: 325 mg Albuterol Sulfate (Ventolin 0.083% Nebulizer Soln -) 1 amp NEB RTID [facility] Last Admin: 12/16/17 10:00 Dose: 1 amp Albuterol Sulfate (Ventolin 0.083% Nebulizer Soln -) 1 amp NEB Q4H PRN PRN Reason: SHORT OF BREATH/WHEEZING Aspirin (Asa -) 81 mg PO DAILY [facility] Last Admin: 12/16/17 11:02 Dose: 81 mg Atorvastatin Calcium (Lipitor -) 10 mg PO HS [facility] Last Admin: 12/15/17 21:10 Dose: 10 mg Diltiazem HCl (Cardizem Cd -) 120 mg PO DAILY [facility] Last Admin: 12/16/17 11:02 Dose: 120 mg Guaifenesin (Robitussin Dm -) 10 ml PO Q4H PRN PRN Reason: COUGH Heparin Sodium (Porcine) (Heparin -) 5,000 unit SQ BID [facility] Last Admin: 12/16/17 11:03 Dose: Not Given Azithromycin 500 mg/ Sodium (Chloride) 250 mls @ 250 mls/hr IVPB DAILY [facility] Last Admin: 12/16/17 11:01 Dose: 250 mls/hr Methylprednisolone Sodium Succinate (Solu-Medrol -) 40 mg IVPUSH Q8H-IV [facility] Last Admin: 12/16/17 11:01 Dose: 40 mg Montelukast Sodium (Singulair -) 10 mg PO HS [facility] Last Admin: 12/15/17 21:10 Dose: 10 mg Pantoprazole Sodium (Protonix -) 40 mg PO DAILY [facility] Last Admin: 12/16/17 11:02 Dose: 40 mg Phenytoin Sodium (Dilantin -) 100 mg PO BID [facility] Last Admin: 12/16/17 11:03 Dose: 100 mg Tiotropium [place] (Spiriva -) 1 puff IH DAILY [facility] Last Admin: 12/16/17 11:01 Dose: 1 puff - Objective Vital Signs: Vital Signs Temperature 97.9 F 12/16/17 06:00 Pulse Rate 60 12/16/17 06:00 Respiratory Rate 20 12/16/17 06:00 Blood Pressure 128/53 12/16/17 06:00 O2 Sat by Pulse Oximetry (%) 100 12/15/17 21:00 Constitutional: Yes: Calm, Cachectic Eyes: Yes: WNL HENT: Yes: WNL Neck: Yes: WNL Cardiovascular: Yes: Regular Rate and Rhythm, S1, S2 Respiratory: Yes: Wheezes (few wheezes) Gastrointestinal: Yes: Normal Bowel Sounds, Soft Extremities: Yes: WNL Edema: No Labs: CBC, BMP 12/16/17 07:55 12/16/17 07:55 INR, PTT INR 1.20 (0.82-1.09) H 12/14/17 03:51 - ....Imaging Cat Scan: Report Reviewed, Image Reviewed Problem List - Problems (1) Acute exacerbation of chronic obstructive pulmonary disease (COPD) Code(s): J44.1 - CHRONIC OBSTRUCTIVE PULMONARY DISEASE W (ACUTE) EXACERBATION (2) Respiratory distress Code(s): R06.00 - DYSPNEA, UNSPECIFIED (3) CAD (coronary artery disease) Code(s): I25.10 - ATHSCL HEART DISEASE OF [place] CORONARY ARTERY W/O ANG PCTRS (4) Cough Code(s): R05 - COUGH (5) HTN (hypertension) Code(s): I10 - ESSENTIAL (PRIMARY) HYPERTENSION (6) Seizure disorder Code(s): G40.909 - EPILEPSY, UNSP, NOT INTRACTABLE, WITHOUT STATUS EPILEPTICUS Assessment/Plan IMP COPD EXACERBATION IMPROVING URI SEIZURE DISORDER HLD H/O PNEUMONIA H/O DVT PLAN STEROID TAPER INHALED BRONCHODILATORS O2 ABX MONITOR APRIL LOPEZ Problem List - Problems (1) Acute exacerbation of chronic obstructive pulmonary disease (COPD) Code(s): J44.1 - CHRONIC OBSTRUCTIVE PULMONARY DISEASE W (ACUTE) EXACERBATION (2) Respiratory distress Code(s): R06.00 - DYSPNEA, UNSPECIFIED (3) CAD (coronary artery disease) Code(s): I25.10 - ATHSCL HEART DISEASE OF [place] CORONARY ARTERY W/O ANG PCTRS (4) Cough Code(s): R05 - COUGH (5) HTN (hypertension) Code(s): I10 - ESSENTIAL (PRIMARY) HYPERTENSION (6) Seizure disorder Code(s): G40.909 - EPILEPSY, UNSP, NOT INTRACTABLE, WITHOUT STATUS EPILEPTICUS
[2017-12-16] MEDS: MONTELUKAST NA 10 MG TABLET PO SCH (21:21)
[2017-12-16] MEDS: ATORVASTATIN CA 10 MG TABLET (FP) PO SCH (21:22)
[2017-12-17] MEDS: methylPREDNISolone NA SUCC 40 MG/1 ML VIAL IVPUSH SCH ×2 (02:14→10:17)
[2017-12-17] MEDS: ACETAMINOPHEN 325 MG TABLET (FP) PO SCH ×3 (04:39→19:59)
[2017-12-17] MEDS ORDERED: INSULIN (LEVEMIR) 100 UNITS/ML UNITS SQ ONE (06:47)
[2017-12-17] MEDS ORDERED: INSULIN (NOVOLOG) ASPART 100 UNITS/ML 10ML VIAL ONE (06:47)
[2017-12-17] MEDS: ALBUTEROL SO4 0.083% IH SOL 2.5 MG/3 ML VIAL.NEB. NEB SCH ×3 (07:25→20:00)
[2017-12-17] MEDS: PANTOPRAZOLE 40 MG TABLET (FP) PO SCH (10:15)
[2017-12-17] MEDS: ASPIRIN 81 MG CHEWABLE TABLETS PO SCH (10:15)
[2017-12-17] MEDS: HEPARIN NA (PORCINE) 5,000 UNITS/ML 1ML VIAL SQ SCH ×2 (10:16→21:42)
[2017-12-17] MEDS: TIOTROPIUM BROMIDE 18 MCG CAPSULES IH SCH (10:17)
[2017-12-17] MEDS ORDERED: PT OWN MED DRAWER 7, Y5N ONE ×2 (10:18→21:18)
[2017-12-17] MEDS: PHENYTOIN NA EXTENDED 100 MG CAPSULE (FP) PO SCH ×2 (10:20→21:41)
[2017-12-17] MEDS: AZITHROMYCIN IVPB 500 MG in SODIUM CHLORIDE 250 ML IVPB SCH (10:21)
--- NOTE | 2017-12-17 14:26 | PN ---
Progress Note (short form) - Note Progress Note: Breathing feels a little better. Still with cough with white/yellow sputum. No CP. Intake & Output 12/14/17 12/15/17 12/16/17 12/17/17 23:59 23:59 23:59 23:59 Intake Total 1750 1295 1045 350 Output Total 900 300 450 200 Balance 850 995 595 150 Weight 125 lb Last Vital Signs Temp Pulse Resp BP Pulse Ox 97.7 F 57 L 20 119/58 98 12/17/17 06:00 12/17/17 06:00 12/17/17 06:00 12/17/17 06:00 12/16/17 21:00 Active Medications Acetaminophen (Tylenol -) 325 mg PO Q8H [facility] Last Admin: 12/17/17 11:24 Dose: Not Given Albuterol Sulfate (Ventolin 0.083% Nebulizer Soln -) 1 amp NEB RTID [facility] Last Admin: 12/17/17 07:25 Dose: 1 amp Albuterol Sulfate (Ventolin 0.083% Nebulizer Soln -) 1 amp NEB Q4H PRN PRN Reason: SHORT OF BREATH/WHEEZING Aspirin (Asa -) 81 mg PO DAILY [facility] Last Admin: 12/17/17 10:15 Dose: 81 mg Atorvastatin Calcium (Lipitor -) 10 mg PO HS [facility] Last Admin: 12/16/17 21:22 Dose: 10 mg Diltiazem HCl (Cardizem Cd -) 120 mg PO DAILY [facility] Last Admin: 12/17/17 10:15 Dose: 120 mg Guaifenesin (Robitussin Dm -) 10 ml PO Q4H PRN PRN Reason: COUGH Heparin Sodium (Porcine) (Heparin -) 5,000 unit SQ BID [facility] Last Admin: 12/17/17 10:16 Dose: Not Given Azithromycin 500 mg/ Sodium (Chloride) 250 mls @ 250 mls/hr IVPB DAILY [facility] Last Admin: 12/17/17 10:21 Dose: 250 mls/hr Methylprednisolone Sodium Succinate (Solu-Medrol -) 40 mg IVPUSH Q8H-IV [facility] Last Admin: 12/17/17 10:17 Dose: 40 mg Montelukast Sodium (Singulair -) 10 mg PO HS [facility] Last Admin: 12/16/17 21:21 Dose: 10 mg Pantoprazole Sodium (Protonix -) 40 mg PO DAILY [facility] Last Admin: 12/17/17 10:15 Dose: 40 mg Phenytoin Sodium (Dilantin -) 100 mg PO BID [facility] Last Admin: 12/17/17 10:20 Dose: 100 mg Tiotropium [place] (Spiriva -) 1 puff IH DAILY [facility] Last Admin: 12/17/17 10:17 Dose: 1 puff Constitutional: Yes: No Distress, Thin Eyes: Yes: Conjunctiva Clear, EOM Intact HENT: Yes: Normocephalic. No: Drooling, Pharyngeal Erythema, Rhinnorhea Neck: Yes: Trachea Midline. No: Lymphadenopathy Cardiovascular: Yes: Regular Rate and Rhythm, S1, S2 Respiratory: Yes: Scattered Rhonchi, no wheezes Gastrointestinal: Yes: Normal Bowel Sounds, Soft. No: Tenderness ...Rectal Exam: Yes: Deferred Renal/: No: CVA Tenderness - Left, CVA Tenderness - Right Musculoskeletal: No: Back Pain, Joint Swelling Extremities: No: Cold, Cool Edema: No Peripheral Pulses: Left Radial: 2+, Right Radial: 2+ Integumentary: No: Bruising, Jaundice, Rash Neurological: Yes: Alert, Oriented Psychiatric: Yes: Alert, Oriented Labs: Problem List - Problems (1) Acute exacerbation of chronic obstructive pulmonary disease (COPD) Code(s): J44.1 - CHRONIC OBSTRUCTIVE PULMONARY DISEASE W (ACUTE) EXACERBATION (2) Respiratory distress Code(s): R06.00 - DYSPNEA, UNSPECIFIED (3) CAD (coronary artery disease) Code(s): I25.10 - ATHSCL HEART DISEASE OF [place] CORONARY ARTERY W/O ANG PCTRS (4) Cough Code(s): R05 - COUGH (5) HTN (hypertension) Code(s): I10 - ESSENTIAL (PRIMARY) HYPERTENSION (6) Seizure disorder Code(s): G40.909 - EPILEPSY, UNSP, NOT INTRACTABLE, WITHOUT STATUS EPILEPTICUS IMP COPD EXACERBATION URI SEIZURE DISORDER HLD H/O PNEUMONIA H/O DVT PLAN CHANGE TO PREDNISONE INHALED BRONCHODILATORS O2 ZITHROMAX SPIRIVA BD TX SINGULAIR PULM REHAB AFTER D/C Dr Garay
[2017-12-17] MEDS: predniSONE 10 MG TABLET (UD) PO SCH (18:09)
--- NOTE | 2017-12-17 19:18 | PN ---
Progress Note, Physician History of Present Illness: Pt's breathing is the same, bring up yellowish sputum. Pt is c/o running nose. Pt w/o CP, palpitations, abd pain. - Current Medication List Current Medications: Active Medications Acetaminophen (Tylenol -) 325 mg PO Q8H [facility] Last Admin: 12/17/17 11:24 Dose: Not Given Albuterol Sulfate (Ventolin 0.083% Nebulizer Soln -) 1 amp NEB RTID [facility] Last Admin: 12/17/17 14:27 Dose: 1 amp Albuterol Sulfate (Ventolin 0.083% Nebulizer Soln -) 1 amp NEB Q4H PRN PRN Reason: SHORT OF BREATH/WHEEZING Aspirin (Asa -) 81 mg PO DAILY [facility] Last Admin: 12/17/17 10:15 Dose: 81 mg Atorvastatin Calcium (Lipitor -) 10 mg PO HS [facility] Last Admin: 12/16/17 21:22 Dose: 10 mg Diltiazem HCl (Cardizem Cd -) 120 mg PO DAILY [facility] Last Admin: 12/17/17 10:15 Dose: 120 mg Guaifenesin (Robitussin Dm -) 10 ml PO Q4H PRN PRN Reason: COUGH Heparin Sodium (Porcine) (Heparin -) 5,000 unit SQ BID [facility] Last Admin: 12/17/17 10:16 Dose: Not Given Azithromycin 500 mg/ Sodium (Chloride) 250 mls @ 250 mls/hr IVPB DAILY [facility] Last Admin: 12/17/17 10:21 Dose: 250 mls/hr Montelukast Sodium (Singulair -) 10 mg PO HS [facility] Last Admin: 12/16/17 21:21 Dose: 10 mg Pantoprazole Sodium (Protonix -) 40 mg PO DAILY [facility] Last Admin: 12/17/17 10:15 Dose: 40 mg Phenytoin Sodium (Dilantin -) 100 mg PO BID [facility] Last Admin: 12/17/17 10:20 Dose: 100 mg Prednisone (Deltasone -) 30 mg PO DAILY [facility] Last Admin: 12/17/17 18:09 Dose: 30 mg Tiotropium [place] (Spiriva -) 1 puff IH DAILY [facility] Last Admin: 12/17/17 10:17 Dose: 1 puff - Objective Vital Signs: Vital Signs Temperature 97.3 F L 12/17/17 18:00 Pulse Rate 60 12/17/17 18:00 Respiratory Rate 20 12/17/17 18:00 Blood Pressure 117/53 12/17/17 18:00 O2 Sat by Pulse Oximetry (%) 96 12/17/17 09:00 Constitutional: Yes: No Distress, Calm Cardiovascular: Yes: Regular Rate and Rhythm, S1, S2 Respiratory: Yes: Regular, Rhonchi (bilaterally) Gastrointestinal: Yes: Normal Bowel Sounds, Soft. No: Tenderness Edema: No Neurological: Yes: Alert, Oriented Labs: CBC, BMP 12/16/17 07:55 12/16/17 07:55 INR, PTT INR 1.20 (0.82-1.09) H 12/14/17 03:51 Problem List - Problems (1) Acute hypoxemic respiratory failure Code(s): J96.01 - ACUTE RESPIRATORY FAILURE WITH HYPOXIA (2) Acute exacerbation of chronic obstructive pulmonary disease (COPD) Code(s): J44.1 - CHRONIC OBSTRUCTIVE PULMONARY DISEASE W (ACUTE) EXACERBATION (3) Acute chronic obstructive pulmonary disease with respiratory failure Code(s): J96.00 - ACUTE RESPIRATORY FAILURE, UNSP W HYPOXIA OR HYPERCAPNIA; J44.9 - CHRONIC OBSTRUCTIVE PULMONARY DISEASE, UNSPECIFIED (4) CAD (coronary artery disease) Code(s): I25.10 - ATHSCL HEART DISEASE OF [place] CORONARY ARTERY W/O ANG PCTRS (5) Cachexia Code(s): R64 - CACHEXIA (6) Seizure disorder Code(s): G40.909 - EPILEPSY, UNSP, NOT INTRACTABLE, WITHOUT STATUS EPILEPTICUS (7) URI (upper respiratory infection) Code(s): J06.9 - ACUTE UPPER RESPIRATORY INFECTION, UNSPECIFIED Assessment/Plan Steroids where changed by Pulmonary. IV Azithromax Albuterol nebulized O2 supplementation. Pulmonary consult appreciated. DVT prophylaxis AM labs PT eval, OOBTC. Pt to DC'ed tomorrow is feeling ok (home vs rehab)
[2017-12-17] MEDS: ATORVASTATIN CA 10 MG TABLET (FP) PO SCH (21:42)
[2017-12-17] MEDS: MONTELUKAST NA 10 MG TABLET PO SCH (21:42)
[2017-12-18] MEDS: ACETAMINOPHEN 325 MG TABLET (FP) PO SCH ×3 (04:12→20:41)
[2017-12-18] MEDS: ALBUTEROL SO4 0.083% IH SOL 2.5 MG/3 ML VIAL.NEB. NEB SCH ×3 (08:10→20:00)
--- NOTE | 2017-12-18 10:15 | PN ---
Progress Note, Physician History of Present Illness: Pt's breathing is the same,. Pt still brings up yellowish sputum. Pt w/o CP, palpitations, abd pain. - Current Medication List Current Medications: Active Medications Acetaminophen (Tylenol -) 325 mg PO Q8H [facility] Last Admin: 12/18/17 04:12 Dose: Not Given Albuterol Sulfate (Ventolin 0.083% Nebulizer Soln -) 1 amp NEB RTID [facility] Last Admin: 12/18/17 08:10 Dose: 1 amp Albuterol Sulfate (Ventolin 0.083% Nebulizer Soln -) 1 amp NEB Q4H PRN PRN Reason: SHORT OF BREATH/WHEEZING Aspirin (Asa -) 81 mg PO DAILY [facility] Last Admin: 12/17/17 10:15 Dose: 81 mg Atorvastatin [place] (Lipitor -) 10 mg PO HS [facility] Last Admin: 12/17/17 21:42 Dose: 10 mg Diltiazem HCl (Cardizem Cd -) 120 mg PO DAILY [facility] Last Admin: 12/17/17 10:15 Dose: 120 mg Guaifenesin (Robitussin Dm -) 10 ml PO Q4H PRN PRN Reason: COUGH Heparin Sodium (Porcine) (Heparin -) 5,000 unit SQ BID [facility] Last Admin: 12/17/17 21:42 Dose: Not Given Azithromycin 500 mg/ Sodium (Chloride) 250 mls @ 250 mls/hr IVPB DAILY [facility] Last Admin: 12/17/17 10:21 Dose: 250 mls/hr Montelukast Sodium (Singulair -) 10 mg PO HS [facility] Last Admin: 12/17/17 21:42 Dose: 10 mg Pantoprazole Sodium (Protonix -) 40 mg PO DAILY [facility] Last Admin: 12/17/17 10:15 Dose: 40 mg Phenytoin Sodium (Dilantin -) 100 mg PO BID [facility] Last Admin: 12/17/17 21:41 Dose: 100 mg Prednisone (Deltasone -) 30 mg PO DAILY [facility] Last Admin: 12/17/17 18:09 Dose: 30 mg Tiotropium [place] (Spiriva -) 1 puff IH DAILY [facility] Last Admin: 12/17/17 10:17 Dose: 1 puff - Objective Vital Signs: Vital Signs Temperature 97.9 F 12/18/17 06:00 Pulse Rate 61 12/18/17 06:00 Respiratory Rate 20 12/18/17 06:00 Blood Pressure 108/61 12/18/17 06:00 O2 Sat by Pulse Oximetry (%) 97 12/17/17 21:00 Constitutional: Yes: No Distress, Calm Cardiovascular: Yes: Regular Rate and Rhythm, S1, S2 Respiratory: Yes: Regular, Rhonchi (scattered.) Gastrointestinal: Yes: Normal Bowel Sounds, Soft. No: Tenderness Edema: No Labs: CBC, BMP 12/16/17 07:55 12/16/17 07:55 INR, PTT INR 1.20 (0.82-1.09) H 12/14/17 03:51 Problem List - Problems (1) Acute hypoxemic respiratory failure Code(s): J96.01 - ACUTE RESPIRATORY FAILURE WITH HYPOXIA (2) Acute exacerbation of chronic obstructive pulmonary disease (COPD) Code(s): J44.1 - CHRONIC OBSTRUCTIVE PULMONARY DISEASE W (ACUTE) EXACERBATION (3) Acute chronic obstructive pulmonary disease with respiratory failure Code(s): J96.00 - ACUTE RESPIRATORY FAILURE, UNSP W HYPOXIA OR HYPERCAPNIA; J44.9 - CHRONIC OBSTRUCTIVE PULMONARY DISEASE, UNSPECIFIED (4) CAD (coronary artery disease) Code(s): I25.10 - ATHSCL HEART DISEASE OF [place] CORONARY ARTERY W/O ANG PCTRS (5) Cachexia Code(s): R64 - CACHEXIA (6) Seizure disorder Code(s): G40.909 - EPILEPSY, UNSP, NOT INTRACTABLE, WITHOUT STATUS EPILEPTICUS (7) URI (upper respiratory infection) Code(s): J06.9 - ACUTE UPPER RESPIRATORY INFECTION, UNSPECIFIED Assessment/Plan Steroids where changed by Pulmonary. IV Azithromax (continue) Albuterol nebulized O2 supplementation. Pulmonary consult and f/u appreciated. DVT prophylaxis PT f/u; I d/w pt my concerns regarding safe walking; PT report was reviewed with pt. Pt to be DC'ed tomorrow if respiratory mcintosh is better; pt doesn't want to go to rehab; he wants to go home. Case was d/w with nurse.
[2017-12-18] MEDS ORDERED: PT OWN MED DRAWER 7, Y5N ONE ×3 (11:10→19:22)
[2017-12-18] MEDS: predniSONE 10 MG TABLET (UD) PO SCH (11:11)
[2017-12-18] MEDS: PANTOPRAZOLE 40 MG TABLET (FP) PO SCH (11:12)
[2017-12-18] MEDS: PHENYTOIN NA EXTENDED 100 MG CAPSULE (FP) PO SCH ×2 (11:12→21:08)
[2017-12-18] MEDS: HEPARIN NA (PORCINE) 5,000 UNITS/ML 1ML VIAL SQ SCH ×2 (11:13→21:08)
[2017-12-18] MEDS: TIOTROPIUM BROMIDE 18 MCG CAPSULES IH SCH (11:13)
[2017-12-18] MEDS: ASPIRIN 81 MG CHEWABLE TABLETS PO SCH (11:13)
[2017-12-18] MEDS: AZITHROMYCIN IVPB 500 MG in SODIUM CHLORIDE 250 ML IVPB SCH (11:13)
[2017-12-18] MEDS: FLUTICASONE PROP 0.05% 16 GM NASAL SPRAY NS SCH (15:01)
--- NOTE | 2017-12-18 15:43 | PN ---
Progress Note, Physician History of Present Illness: pulmonary alet,oob-chair,less dyspneic,less cough - Current Medication List Current Medications: Active Medications Acetaminophen (Tylenol -) 325 mg PO Q8H [facility] Last Admin: 12/18/17 12:49 Dose: Not Given Albuterol Sulfate (Ventolin 0.083% Nebulizer Soln -) 1 amp NEB RTID [facility] Last Admin: 12/18/17 14:52 Dose: 1 amp Albuterol Sulfate (Ventolin 0.083% Nebulizer Soln -) 1 amp NEB Q4H PRN PRN Reason: SHORT OF BREATH/WHEEZING Aspirin (Asa -) 81 mg PO DAILY [facility] Last Admin: 12/18/17 11:13 Dose: 81 mg Atorvastatin Calcium (Lipitor -) 10 mg PO HS [facility] Last Admin: 12/17/17 21:42 Dose: 10 mg Diltiazem HCl (Cardizem Cd -) 120 mg PO DAILY [facility] Last Admin: 12/18/17 11:13 Dose: 120 mg Fluticasone Propionate (Flonase -) 2 spray NS DAILY [facility] Last Admin: 12/18/17 15:01 Dose: 2 sprays Guaifenesin (Robitussin Dm -) 10 ml PO Q4H PRN PRN Reason: COUGH Last Admin: 12/18/17 11:28 Dose: 10 ml Heparin Sodium (Porcine) (Heparin -) 5,000 unit SQ BID [facility] Last Admin: 12/18/17 11:13 Dose: Not Given Azithromycin 500 mg/ Sodium (Chloride) 250 mls @ 250 mls/hr IVPB DAILY [facility] Last Admin: 12/18/17 11:13 Dose: 250 mls/hr Montelukast Sodium (Singulair -) 10 mg PO HS [facility] Last Admin: 12/17/17 21:42 Dose: 10 mg Pantoprazole Sodium (Protonix -) 40 mg PO DAILY [facility] Last Admin: 12/18/17 11:12 Dose: 40 mg Phenytoin Sodium (Dilantin -) 100 mg PO BID [facility] Last Admin: 12/18/17 11:12 Dose: 100 mg Prednisone (Deltasone -) 30 mg PO DAILY [facility] Last Admin: 12/18/17 11:11 Dose: 30 mg Tiotropium [place] (Spiriva -) 1 puff IH DAILY [facility] Last Admin: 12/18/17 11:13 Dose: 1 puff - Objective Vital Signs: Vital Signs Temperature 97.9 F 12/18/17 06:00 Pulse Rate 61 12/18/17 06:00 Respiratory Rate 20 12/18/17 06:00 Blood Pressure 108/61 12/18/17 06:00 O2 Sat by Pulse Oximetry (%) 97 12/17/17 21:00 Constitutional: Yes: Calm, Cachectic Eyes: Yes: WNL HENT: Yes: WNL Neck: Yes: WNL Cardiovascular: Yes: Regular Rate and Rhythm, S1, S2 Respiratory: Yes: Wheezes (few wheezes) Gastrointestinal: Yes: Normal Bowel Sounds, Soft Extremities: Yes: WNL Edema: No Labs: CBC, BMP Problem List - Problems (1) Acute exacerbation of chronic obstructive pulmonary disease (COPD) Code(s): J44.1 - CHRONIC OBSTRUCTIVE PULMONARY DISEASE W (ACUTE) EXACERBATION (2) Respiratory distress Code(s): R06.00 - DYSPNEA, UNSPECIFIED (3) CAD (coronary artery disease) Code(s): I25.10 - ATHSCL HEART DISEASE OF [place] CORONARY ARTERY W/O ANG PCTRS (4) Cough Code(s): R05 - COUGH (5) HTN (hypertension) Code(s): I10 - ESSENTIAL (PRIMARY) HYPERTENSION (6) Seizure disorder Code(s): G40.909 - EPILEPSY, UNSP, NOT INTRACTABLE, WITHOUT STATUS EPILEPTICUS Assessment/Plan IMP COPD EXACERBATION IMPROVING URI SEIZURE DISORDER HLD H/O PNEUMONIA H/O DVT PLAN PREDNISONE INHALED BRONCHODILATORS O2 ABX DR LOPEZ Problem List - Problems (1) Acute exacerbation of chronic obstructive pulmonary disease (COPD) Code(s): J44.1 - CHRONIC OBSTRUCTIVE PULMONARY DISEASE W (ACUTE) EXACERBATION (2) Respiratory distress Code(s): R06.00 - DYSPNEA, UNSPECIFIED (3) CAD (coronary artery disease) Code(s): I25.10 - ATHSCL HEART DISEASE OF [place] CORONARY ARTERY W/O ANG PCTRS (4) Cough Code(s): R05 - COUGH (5) HTN (hypertension) Code(s): I10 - ESSENTIAL (PRIMARY) HYPERTENSION (6) Seizure disorder Code(s): G40.909 - EPILEPSY, UNSP, NOT INTRACTABLE, WITHOUT STATUS EPILEPTICUS
[2017-12-18] MEDS: ATORVASTATIN CA 10 MG TABLET (FP) PO SCH (21:08)
[2017-12-18] MEDS: MONTELUKAST NA 10 MG TABLET PO SCH (21:08)
[2017-12-19] MEDS: ACETAMINOPHEN 325 MG TABLET (FP) PO SCH ×2 (02:59→11:52)
[2017-12-19] MEDS: ALBUTEROL SO4 0.083% IH SOL 2.5 MG/3 ML VIAL.NEB. NEB SCH (08:05)
[2017-12-19 09:55] VITALS: BP 113/68; PULSE 67; TEMP 98.5
[2017-12-19] MEDS ORDERED: PT OWN MED DRAWER 7, Y5N ONE ×2 (09:58→11:34)
[2017-12-19] MEDS: predniSONE 10 MG TABLET (UD) PO SCH (10:15)
[2017-12-19] MEDS: ASPIRIN 81 MG CHEWABLE TABLETS PO SCH (10:15)
[2017-12-19] MEDS: PHENYTOIN NA EXTENDED 100 MG CAPSULE (FP) PO SCH (10:15)
[2017-12-19] MEDS: PANTOPRAZOLE 40 MG TABLET (FP) PO SCH (10:15)
[2017-12-19] MEDS: FLUTICASONE PROP 0.05% 16 GM NASAL SPRAY NS SCH (10:15)
[2017-12-19] MEDS: TIOTROPIUM BROMIDE 18 MCG CAPSULES IH SCH (10:16)
[2017-12-19] MEDS: HEPARIN NA (PORCINE) 5,000 UNITS/ML 1ML VIAL SQ SCH (10:16)
[2017-12-19] MEDS: AZITHROMYCIN IVPB 500 MG in SODIUM CHLORIDE 250 ML IVPB SCH (10:16)
--- NOTE | 2017-12-19 11:45 | DS ---
Physical Examination Vital Signs: Vital Signs Temperature 98.5 F 12/19/17 09:54 Pulse Rate 67 12/19/17 09:54 Respiratory Rate 20 12/19/17 09:54 Blood Pressure 113/68 12/19/17 09:54 O2 Sat by Pulse Oximetry (%) 96 12/18/17 21:00 Findings/Remarks: Pt with decreased cough and sputum. Pt w/o SOB, CP, palpitations, abd pain. Constitutional: Yes: No Distress, Calm Cardiovascular: Yes: Regular Rate and Rhythm, S1, S2 Respiratory: Yes: Regular, Rhonchi (minimal, bilaterally). No: Wheezes Gastrointestinal: Yes: Normal Bowel Sounds, Soft. No: Tenderness Edema: No Neurological: Yes: Alert, Oriented Labs: CBC, BMP 12/16/17 07:55 12/16/17 07:55 Discharge Summary Reason For Visit: COPD, RESPIRATORY DISTRESS [place] Current Active Problems Acute exacerbation of chronic obstructive pulmonary disease (COPD) (Acute) Acute hypoxemic respiratory failure (Acute) COPD (chronic obstructive pulmonary disease) (Acute) Cachexia (Acute) Respiratory distress (Acute) URI (upper respiratory infection) (Acute) Severe Malnutrition. Hospital Course: Pt came to ER c/o productive cough and SOB; he was noticed to have Acute infectious Bronchitis and Acute COPD exacerbation. Pt was started on IV abtx ( Zithromax) and IV Steroids. Pt was seen in consult by Pulmonary (Dr. Mo). Pt improved slowly; pt was switched to PO medications and wopuld be [place]'ed home. Condition: Improved - Instructions Diet, Activity, Other Instructions: Resume Diet. To pickup medications from Pharmacy. Call Dr. Durán office ( on Thursday or Thursday) for followup appointment. Referrals: Joshua Durán MD [Staff Physician] - (in 1-2 weeks) Flex Mo MD [Staff Physician] - (in 1-2 weeks) Disposition: HOME - Home Medications Comprehensive Discharge Medication List: Ambulatory Orders
--- NOTE | 2017-12-19 13:21 | PN ---
Progress Note (short form) - Note Progress Note: Breathing feels better. Some residual cough. Intake & Output 12/16/17 12/17/17 12/18/17 12/19/17 23:59 23:59 23:59 23:59 Intake Total 1045 1265 950 770 Output Total 173 688 7484 400 Balance 595 565 -150 370 Last Vital Signs Temp Pulse Resp BP Pulse Ox 98.5 F 67 20 113/68 96 12/19/17 09:54 12/19/17 09:54 12/19/17 09:54 12/19/17 09:54 12/18/17 21:00 Active Medications Acetaminophen (Tylenol -) 325 mg PO Q8H [facility] Last Admin: 12/19/17 11:52 Dose: Not Given Albuterol Sulfate (Ventolin 0.083% Nebulizer Soln -) 1 amp NEB RTID [facility] Last Admin: 12/18/17 20:00 Dose: 1 amp Albuterol Sulfate (Ventolin 0.083% Nebulizer Soln -) 1 amp NEB Q4H PRN PRN Reason: SHORT OF BREATH/WHEEZING Aspirin (Asa -) 81 mg PO DAILY [facility] Last Admin: 12/19/17 10:15 Dose: 81 mg Atorvastatin Calcium (Lipitor -) 10 mg PO HS [facility] Last Admin: 12/18/17 21:08 Dose: 10 mg Diltiazem HCl (Cardizem Cd -) 120 mg PO DAILY [facility] Last Admin: 12/19/17 10:15 Dose: 120 mg Fluticasone Propionate (Flonase -) 2 spray NS DAILY [facility] Last Admin: 12/19/17 10:15 Dose: 2 sprays Guaifenesin (Robitussin Dm -) 10 ml PO Q4H PRN PRN Reason: COUGH Last Admin: 12/18/17 11:28 Dose: 10 ml Heparin Sodium (Porcine) (Heparin -) 5,000 unit SQ BID [facility] Last Admin: 12/19/17 10:16 Dose: Not Given Azithromycin 500 mg/ Sodium (Chloride) 250 mls @ 250 mls/hr IVPB DAILY [facility] Last Admin: 12/19/17 10:16 Dose: 250 mls/hr Montelukast Sodium (Singulair -) 10 mg PO HS [facility] Last Admin: 12/18/17 21:08 Dose: 10 mg Pantoprazole Sodium (Protonix -) 40 mg PO DAILY [facility] Last Admin: 12/19/17 10:15 Dose: 40 mg Phenytoin Sodium (Dilantin -) 100 mg PO BID [facility] Last Admin: 12/19/17 10:15 Dose: 100 mg Prednisone (Deltasone -) 30 mg PO DAILY [facility] Last Admin: 12/19/17 10:15 Dose: 30 mg Tiotropium [place] (Spiriva -) 1 puff IH DAILY [facility] Last Admin: 12/19/17 10:16 Dose: 1 puff Constitutional: Yes: No Distress, Thin Eyes: Yes: Conjunctiva Clear, EOM Intact HENT: Yes: Normocephalic. No: Drooling, Pharyngeal Erythema, Rhinnorhea Neck: Yes: Trachea Midline. No: Lymphadenopathy Cardiovascular: Yes: Regular Rate and Rhythm, S1, S2 Respiratory: Yes: Scattered Rhonchi, no wheezes Gastrointestinal: Yes: Normal Bowel Sounds, Soft. No: Tenderness ...Rectal Exam: Yes: Deferred Renal/: No: CVA Tenderness - Left, CVA Tenderness - Right Musculoskeletal: No: Back Pain, Joint Swelling Extremities: No: Cold, Cool Edema: No Peripheral Pulses: Left Radial: 2+, Right Radial: 2+ Integumentary: No: Bruising, Jaundice, Rash Neurological: Yes: Alert, Oriented Psychiatric: Yes: Alert, Oriented Labs: Problem List - Problems (1) Acute exacerbation of chronic obstructive pulmonary disease (COPD) Code(s): J44.1 - CHRONIC OBSTRUCTIVE PULMONARY DISEASE W (ACUTE) EXACERBATION (2) Respiratory distress Code(s): R06.00 - DYSPNEA, UNSPECIFIED (3) CAD (coronary artery disease) Code(s): I25.10 - ATHSCL HEART DISEASE OF [place] CORONARY ARTERY W/O ANG PCTRS (4) Cough Code(s): R05 - COUGH (5) HTN (hypertension) Code(s): I10 - ESSENTIAL (PRIMARY) HYPERTENSION (6) Seizure disorder Code(s): G40.909 - EPILEPSY, UNSP, NOT INTRACTABLE, WITHOUT STATUS EPILEPTICUS IMP COPD EXACERBATION URI SEIZURE DISORDER HLD H/O PNEUMONIA H/O DVT PLAN PREDNISONE TAPER INHALED BRONCHODILATORS O2 ZITHROMAX SPIRIVA BD TX SINGULAIR PULM REHAB AFTER D/C D/C HOME Dr Garay
== END 2017-12-19 14:09 | disposition home or self-care (01) | DRG 189 ==
LOC: JER 01:47 → JERBED 06:09 → J5S 11:31
PROVIDERS: ADMIT Specialist; ATTEND Specialist
DX: J96.01 Acute respiratory failure with hypoxia (principal); E43 Unspecified severe protein-calorie malnutrition; J44.1 Chronic obstructive pulmonary disease with (acute) exacerbation; R64 Cachexia; Z68.1 Body mass index [BMI] 19.9 or less, adult; I25.10 Atherosclerotic heart disease of native coronary artery without angina pectoris; G40.909 Epilepsy, unspecified, not intractable, without status epilepticus; J06.9 Acute upper respiratory infection, unspecified; K21.9 Gastro-esophageal reflux disease without esophagitis
CPT/HCPCS: 36415; 36600; 71046-TC-FY; 71250-TC; 80053; 80185; 81003; 81015; 82375; 82550; 82803; 83050; 83615; 83880; 84484; 85025; 85027; 85610; 85730; 93005; 93010; 94640; 97116-GP; 97161-GP; 99283-25; J1644; J7620

== ENCOUNTER 2018-09-01 13:24 | Inpatient (IN) | payer OTHER ==
[2018-09-01] MEDS ORDERED: ACETAMINOPHEN 1000 MG/100 ML VIAL (NON FORMULARY) IVPB ONE (15:06)
--- NOTE | 2018-09-01 15:24 | PDOC ---
History of Present Illness - General Chief Complaint: Injury Stated Complaint: FALL Time Seen by Provider: 09/01/18 13:54 History Source: Patient Exam Limitations: No Limitations - History of Present Illness Initial Comments: 09/01/18 15:09 Pt. is a 72 y.o. M w/ PMHx. of DVT, COPD (not on home O2?), HTN, HLD, CAD(s/p PCI stent), GERD, seizure disorder presents after a fall on the morning of 08/30. Pt. states that he was trying to lift a wooden ladder from his closet. After the ladder hit the right side of his hed the Pt. fell to the ground and hit the right side of his body. Pt. did not lose consciousness and denies any prodromal symptoms before the fall. Pt.'s nephew who he lives with at home came immediately to his assistance and carried him to his room. Pt. states he did not come in then because he did not want to spend [place] Sadie or Aung in the hospital. Pt. normally walks around at home with his walker or cane. Pt. uses a motorized scooter to ambulate outside of his house. Pt. denies any dizziness, lightheadedness, chest pain, abdominal pain, shortness of breath or numbness/tingling in extremities. Timing/Duration: 24 hours Severity: moderate Modifying Factors: improves with: immobilization, rest Associated Symptoms: reports: denies symptoms. denies: chest pain, fever/chills , headaches, loss of appetite, nausea/vomiting, shortness of breath, weakness Past History - Travel Traveled outside of the country in the last 30 days: No Close contact w/someone who was outside of country & ill: No - Past Medical History Allergies/Adverse Reactions: Allergies Allergy/AdvReac Type Severity Reaction Status Date / Time No Known Drug Allergies Allergy Verified 09/01/18 13:31 Home Medications: Ambulatory Orders Esomeprazole Mag Trihydrate [Nexium] 40 mg PO DAILY 06/11/14 Phenytoin Na Extended [Dilantin -] 100 mg PO BID 06/11/14 Tiotropium [place] [Spiriva] 1 inh PO DAILY 06/11/14 Acetaminophen [Tylenol .Regular Strength -] 325 mg PO Q8H #270 tablet 06/15/14 Aspirin [ASA -] 81 mg PO DAILY #90 tab.chew 10/09/14 Diltiazem HCl [Dilacor Xr] 120 mg PO DAILY #120 cap.er.deg 06/15/14 Montelukast Na [Singulair -] 10 mg PO HS #90 tablet 06/15/14 Simvastatin [Zocor -] 20 mg PO HS #90 06/15/14 Levalbuterol Tartrate [Xopenex Hfa] 15 gm IH BID 02/04/16 Guaifenesin Dm [Robitussin Dm -] 10 ml PO Q4H PRN #600 ml 10/30/16 Azithromycin 500 mg PO DAILY 2 Days #2 tablet MDD 1 12/19/17 Fluticasone Prop 0.05% Nasal [Flonase -] 2 spray NS DAILY #1 spray MDD 2 Prednisone See Taper PO DAILY 10 Days #22 tablet 12/19/17 Anemia: No Cardiac Disorders: Yes (CAD s/p PCI stent) COPD: Yes DVT: No Dialysis: No GI Disorders: Yes (GERD) HTN: Yes Hypercholesterolemia: Yes Kidney Stones: No Seizures: Yes - Surgical History Orthopedic Surgery: Yes (rt total hip) - Immunization History Immunization Up to Date: Yes - Suicide/Smoking/Psychosocial Hx Smoking Status: No Smoking History: Never smoked Have you smoked in the past 12 months: No Number of Cigarettes Smoked Daily: 0 If you are a former smoker, when did you quit?: 14 years Information on smoking cessation initiated: No 'Breaking Loose' booklet given: 02/04/16 Hx Alcohol Use: No Drug/Substance Use Hx: No Substance Use Type: None Hx Substance Use Treatment: No Review of Systems - Review of Systems Able to Perform ROS?: Yes Is the patient limited Far[place] proficient: No Constitutional: No: Chills, Fever, Loss of Appetite, Malaise, Weakness HEENTM: No: Eye Pain, Double Vision, Ear Pain, Nose Pain, Throat Pain Respiratory: Yes: Cough. No: Shortness of Breath, Wheezing, Productive cough Cardiac (ROS): No: Chest Pain, Edema, Irregular Heart Rate, Lightheadedness, Palpitations ABD/GI: No: Constipated, Diarrhea, Nausea, Vomiting, Abdominal cramping : No: Discharge, Frequency Musculoskeletal: Yes: Joint Pain (right hip and right knee). No: Muscle Weakness Neurological: No: Headache, Numbness, Seizure, Unsteady Gait, Ataxia, Dizziness *Physical Exam - Vital Signs Last Vital Signs Temp Pulse Resp BP Pulse Ox 98.2 F 90 16 131/76 95 09/01/18 13:30 09/01/18 13:30 09/01/18 13:30 09/01/18 13:30 09/01/18 13:30 - Physical Exam General Appearance: Yes: Disheveled, Mild Distress, Cachetic, Thin HEENT: positive: Normal Voice, Pharynx Normal, Excessive drooling. negative: Symmetrical Neck: positive: Trachea midline. negative: Carotid bruit Respiratory/Chest: positive: Lungs Clear, Normal Breath Sounds. negative: Respiratory Distress, Accessory Muscle Use, Crackles, Wheezing Cardiovascular: positive: Regular Rhythm, Regular Rate, S1, S2. negative: Edema , JVD, Murmur Vascular Pulses: Dorsalis-Pedis (R): 2+, Doralis-Pedis (L): 2+ Gastrointestinal/Abdominal: positive: Normal Bowel Sounds, Flat, Soft Musculoskeletal: positive: Decreased Range of Motion (Pt. refuses to move right leg). negative: CVA Tenderness (R) Extremity: negative: Normal Range of Motion, Pelvis Stable, Coldness, Calf Tenderness, Erythema Integumentary: positive: Dry (xerotic, flaky, poor skin turgor ). negative: Normal Color Neurologic: positive: Fully Oriented, Alert, Normal Mood/Affect, Normal Response , Respond to painful stimul, Responsive, Finger to Nose. negative: Numbness, Sensory Deficit Moderate Sedation - Procedure Monitoring Vital Signs: Procedure Monitoring Vital Signs Temperature 98.2 F 09/01/18 13:30 Pulse Rate 90 09/01/18 13:30 Respiratory Rate 16 09/01/18 13:30 Blood Pressure 131/76 09/01/18 13:30 O2 Sat by Pulse Oximetry (%) 95 09/01/18 13:30 ED Treatment Course - LABORATORY CBC & Chemistry Diagram: 09/01/18 15:30 09/01/18 15:16 *DC/Admit/Observation/Transfer Diagnosis at time of Disposition: Leukocytosis, Right hip pain - Discharge Dispostion Condition at time of disposition: Fair - Referrals - Patient Instructions - Post Discharge Activity
--- NOTE | 2018-09-01 15:52 | PDOC ---
Attending Attestation - Medical Decision Making Documentation prepared by MELVIN Jones, acting as remote medical coder for Boubacar Pineda MD. 09/01/18 16:39 <Kimberly Barrera - Last Filed: 09/01/18 16:39> - Resident Resident Name: Matt Mancuso - ED Attending Attestation I have performed the following: I have examined & evaluated the patient, The case was reviewed & discussed with the resident, I agree w/resident's findings & plan, Exceptions are as noted - HPI HPI: 09/01/18 16:23 The patient is a 72 year old male, with a significant past medical history of DVT, COPD, HTN, HLD, seizure disorder, and GERD, who presents to the emergency department today complaining of R sided head and hip pain for 3 days. Patient reports a ladder fell on him upon him trying to remove it from the closet, hitting the right side of his head and causing him to fall on his right side. He denies any LOC or head contusion with the floor. Patient reports he is unable to walk secondary to his hip pain (baseline is with a walker at home). HE did not come after the fall due to the holiday yesterday. The patient denies chest pain, shortness of breath, headache and dizziness. Denies fever, chills, nausea, vomit, diarrhea and constipation. Denies dysuria, frequency, urgency and hematuria. Allergies: NKA Past surgical history: Right THR Social history: No reported PCP: Dr. Durán - Physicial Exam PE: 09/01/18 16:24 GENERAL: +Cachectic with temporal wasting. Awake, alert, and fully oriented, in no acute distress. HEAD: healing laceration to R scalp, no discharge EYES: EOMI, sclera anicteric, conjunctiva clear ENT: Nares patent, oropharynx clear without exudates. Moist mucosa LUNGS: Breath sounds equal, mild exp wheezing to R lung HEART: Regular rate and rhythm, normal S1 and S2, no murmurs, rubs or gallops ABDOMEN: Soft, nontender, normoactive bowel sounds. No guarding, no rebound. No masses EXTREMITIES: +RLE 1 inch shorter, +ttp to R hip. Remaining extremities with normal range of motion, no edema. No cords, erythema. +palpable DP and TP pulses BACK: No midline spinal tenderness in cervical/thoracic/lumbar region NEUROLOGICAL: Normal speech, cranial nerves intact, normal sensation to all extremities, normal strength b/l UE and LLE SKIN: Warm, Dry, normal turgor, no rashes or lesions noted. - Medical Decision Making 09/01/18 16:29 72yo M hx DVT, COPD, HTN, HLD, seizure disorder, and GERD presents to the ED with R hip pain after a fall 3 days ago. Vitals wnl. RLE short with ttp to R hip concerning for fracture. Will check labs, EKG, CXR, pelvis, CTH, CT c-spine for trauma work up. Pt requesting neb for COPD. 09/01/18 17:17 +ramus fracture on XR, CT pelvis ordered +WBC 17, likely reactive but UA added to r/o UTI CXR with no infiltrates on my read CTH negative for acute path, CT-c-spine read pending Case signed out to oncoming attending for f/u on pending studies, dispo <Boubacar Pineda - Last Filed: 09/01/18 18:25> Heart Score/ECG Review #1 09/01/18 17:03 Twelve-lead EKG was performed and reviewed by me. Sinus rhythm, rate 98. Left axis deviation. No ST elevations. Incomplete right bundle with left anterior fascicular block which are unchanged compared to previous EKG. <Boubacar Pineda - Last Filed: 09/01/18 18:25>
[2018-09-01] MEDS ORDERED: IPRATROPIUM BR 0.02% 0.5 MG/2.5 ML VIAL.NEB. NEB ONE ×2 (16:31→17:19)
[2018-09-01 16:47] LABS: BASO % 0.5 % (0-2.0); EOS % 0.1 % (0-4.5); HEMATOCRIT 31.6 % (35.4-49); HEMOGLOBIN 10.7 GM/dL (11.7-16.9); LYMPH % 8.3 % (8-40); MCH 26.4 pg (25.7-33.7); MEAN CELL VOLUME 77.6 fl (80-96); MEAN PLT VOLUME 10.3 fl (7.5-11.1); MONO % 12.2 % (3.8-10.2); NEUT % 78.9 % (42.8-82.8); PLATELET COUNT 183 K/MM3 (134-434); RBC 4.07 M/mm3 (4.00-5.60); RDW 14.3 % (11.9-15.9); WHITE BLOOD COUNT 17.4 K/mm3 (4.0-10.0)
[2018-09-01 16:57] LABS: INR 1.2 (0.83-1.09); PROTHROMBIN TIME (PATIENT) 14.2 SEC (9.7-13.0)
[2018-09-01 17:01] LABS: ALBUMIN 3.6 g/dl (3.4-5.0); ALK PHOS 175 U/L (45-117); ANION GAP 11 MMOL/L (8-16); BILIRUBIN,TOTAL 0.7 mg/dL (0.2-1); BLOOD UREA NITROGEN 16 mg/dL (7-18); CALCIUM 8.7 mg/dL (8.5-10.1); CHLORIDE 107 mmol/L (98-107); CO2 22 mmol/L (21-32); CREATININE 0.4 mg/dL (0.55-1.3); GLUCOSE,RANDOM 81 mg/dL (74-106); POTASSIUM 3.5 mmol/L (3.5-5.1); SGOT/AST 15 U/L (15-37); SGPT/ALT 20 U/L (13-61); SODIUM 140 mmol/L (136-145)
[2018-09-01] MEDS ORDERED: ACETAMINOPHEN INJECTION 100 ML IVPB ONE (17:19)
--- NOTE | 2018-09-01 17:45 | PDOC ---
*Physical Exam - Vital Signs Last Vital Signs Temp Pulse Resp BP Pulse Ox 98.2 F 90 16 131/76 95 09/01/18 13:30 09/01/18 13:30 09/01/18 13:30 09/01/18 13:30 09/01/18 13:30 - Physical Exam Comments: 09/01/18 19:19 Gen: aaox3, breathing on neb during exam R hip ttp distal sensation and muscle strength intact heart RRR lungs: soft end expiratory wheezing ED Treatment Course - LABORATORY CBC & Chemistry Diagram: 09/01/18 15:30 09/01/18 15:16 - ADDITIONAL ORDERS Additional order review: Laboratory Results 09/01/18 09/01/18 09/01/18 17:20 15:30 15:30 PT with INR 14.20 H INR 1.20 H PTT (Actin FS) 20.0 L Sodium Potassium Chloride Carbon Dioxide Anion Gap BUN Creatinine Creat Clearance w eGFR Random Glucose Calcium Total Bilirubin AST ALT Alkaline Phosphatase Creatine Kinase Troponin I 0.02 B-Natriuretic Peptide Total Protein Albumin 09/01/18 09/01/18 09/01/18 15:30 15:30 15:16 PT with INR INR PTT (Actin FS) Sodium Potassium Chloride Carbon Dioxide Anion Gap BUN Creatinine Creat Clearance w eGFR Random Glucose Calcium Total Bilirubin AST ALT Alkaline Phosphatase Creatine Kinase Cancelled Troponin I Cancelled Cancelled B-Natriuretic Peptide 252.9 H Total Protein Albumin 09/01/18 15:16 PT with INR INR PTT (Actin FS) Sodium 140 Potassium 3.5 Chloride 107 Carbon Dioxide 22 Anion Gap 11 BUN 16 Creatinine 0.4 L Creat Clearance w eGFR > 60 Random Glucose 81 Calcium 8.7 Total Bilirubin 0.7 AST 15 ALT 20 Alkaline Phosphatase 175 H Creatine Kinase Troponin I B-Natriuretic Peptide Total Protein 7.0 Albumin 3.6 09/01/18 15:30 RBC 4.07 MCV 77.6 L MCHC 34.0 RDW 14.3 MPV 10.3 Neutrophils % 78.9 Lymphocytes % 8.3 Monocytes % 12.2 H Eosinophils % 0.1 D Basophils % 0.5 Medical Decision Making - Medical Decision Making 09/01/18 17:42 72yo male with R hip pain after falling 3 days ago pt signed out by the prior attending pending imaging and labs -R pelvis shows a pubic rami fx around the prosthesis -trop negative -cxr clear -wbc 17 -case discussed with Dr. Durán who accepts pt to service -requests ortho consult to Dr. Lewis/Rolf 09/01/18 19:19 pt updated on imaging pt agrees to stay for further eval 09/01/18 19:20 pt pending ua *DC/Admit/Observation/Transfer Diagnosis at time of Disposition: Leukocytosis, Right hip pain - Discharge Dispostion Condition at time of disposition: Fair Decision to Admit order: Yes - Referrals - Patient Instructions - Post Discharge Activity
[2018-09-01] MEDS ORDERED: ALBUTEROL SO4 0.083% IH SOL 2.5 MG/3 ML VIAL.NEB. NEB PRN (20:21)
[2018-09-01] MEDS: ATORVASTATIN CA 10 MG TABLET (FP) PO SCH (22:31)
[2018-09-01] MEDS: ACETAMINOPHEN 325 MG TABLET (FP) PO SCH (22:31)
[2018-09-01] MEDS: PHENYTOIN NA EXTENDED 100 MG CAPSULE (FP) PO SCH (22:31)
[2018-09-01] MEDS: MONTELUKAST NA 10 MG TABLET PO SCH (22:31)
[2018-09-02 01:42] LABS: URINE APPEARANCE CLEAR; URINE BILIRUBIN NEGATIVE (<2.0 mg/dL); URINE COLOR DKYELLOW; URINE GLUCOSE (UA) NEGATIVE (NEGATIVE); URINE KETONE 1+ (NEGATIVE); URINE LEUK ESTERASE NEGATIVE (NEGATIVE); URINE NITRITE NEGATIVE (NEGATIVE); URINE PROTEIN NEGATIVE (NEGATIVE); URINE UROBILINOGEN 4.0 E.U/dl mg/dL (0.2-1.0)
[2018-09-02] MEDS: ACETAMINOPHEN 325 MG TABLET (FP) PO SCH ×3 (06:11→21:11)
[2018-09-02 07:27] LABS: HEMATOCRIT 33.4 % (35.4-49); HEMOGLOBIN 10.3 GM/dL (11.7-16.9); MCH 24.6 pg (25.7-33.7); MCHC 30.9 g/dl (32.0-35.9); MEAN CELL VOLUME 79.6 fl (80-96); PLATELET COUNT 160 K/MM3 (134-434); RDW 14.3 % (11.9-15.9); WHITE BLOOD COUNT 13.7 K/mm3 (4.0-10.0)
[2018-09-02 08:13] LABS: ANION GAP 11 MMOL/L (8-16); BLOOD UREA NITROGEN 13 mg/dL (7-18); CALCIUM 8.2 mg/dL (8.5-10.1); CHLORIDE 105 mmol/L (98-107); CHOLESTEROL 156 mg/dL (50-200); CO2 25 mmol/L (21-32); CREATININE 0.4 mg/dL (0.55-1.3); GLUCOSE,RANDOM 64 mg/dL (74-106); HDL CHOLESTEROL 42 mg/dL (40-60); POTASSIUM 3.1 mmol/L (3.5-5.1); SODIUM 141 mmol/L (136-145); TRIGLYCERIDES 117 mg/dL (0-150)
[2018-09-02 09:02] LABS: ERYTHROCYTE SEDIMENTATION RATE 23 mm/hr (0-20)
--- NOTE | 2018-09-02 09:03 | CON.ORTH ---
Consult Reason for Consultation:: right hip pain - Past Medical History Cardio/Vascular: Yes: CAD (s/p PCI with cardiac stent), HTN, Hyperlipdemia Pulmonary: Yes: COPD, O2 Dependent Gastrointestinal: Yes: GERD - Past Surgical History Past Surgical History: Yes: Joint Replacement - Alcohol/Substance Use Hx Alcohol Use: No - Smoking History Smoking history: Never smoked Have you smoked in the past 12 months: No Aproximately how many cigarettes per day: 0 If you are a former smoker, when did you quit?: 14 years - Social History History of Recent Travel: No Home Medications - Allergies Allergies/Adverse Reactions: Allergies Allergy/AdvReac Type Severity Reaction Status Date / Time No Known Drug Allergies Allergy Verified 09/01/18 13:31 - Home Medications Home Medications: Ambulatory Orders Esomeprazole Mag Trihydrate [Nexium] 40 mg PO DAILY 06/11/14 Phenytoin Na Extended [Dilantin -] 100 mg PO BID 06/11/14 Tiotropium [place] [Spiriva] 1 inh PO DAILY 06/11/14 Acetaminophen [Tylenol .Regular Strength -] 325 mg PO Q8H #270 tablet 06/15/14 Aspirin [ASA -] 81 mg PO DAILY #90 tab.chew 06/15/14 Diltiazem HCl [Dilacor Xr] 120 mg PO DAILY #120 cap.er.deg 06/15/14 Montelukast Na [Singulair -] 10 mg PO HS #90 tablet 06/15/14 Simvastatin [Zocor -] 20 mg PO HS #90 06/15/14 Levalbuterol Tartrate [Xopenex Hfa] 15 gm IH BID 02/04/16 Guaifenesin Dm [Robitussin Dm -] 10 ml PO Q4H PRN #600 ml 10/30/16 Azithromycin 500 mg PO DAILY 2 Days #2 tablet MDD 1 12/19/17 Fluticasone Prop 0.05% Nasal [Flonase -] 2 spray NS DAILY #1 spray MDD 2 Prednisone See Taper PO DAILY 10 Days #22 tablet 12/19/17 Physical Exam for Ortho Vital Signs: Vital Signs Temperature 97.6 F 09/02/18 06:00 Pulse Rate 72 09/02/18 06:00 Respiratory Rate 20 09/01/18 23:22 Blood Pressure 122/63 09/02/18 06:00 O2 Sat by Pulse Oximetry (%) 95 09/01/18 23:22 Labs: CBC, BMP 09/02/18 06:30 09/02/18 06:30 INR, PTT INR 1.20 (0.83-1.09) H 09/01/18 15:30 - Lower Extremity Pelvis: Yes: Right, Pain, Tenderness, Other (good ROM, nvi) Imaging - Results X-ray: Report Reviewed, Image Reviewed Cat Scan: Report Reviewed, Image Reviewed Assessment/Plan 2 y.o. M w/ PMHx. of DVT, COPD (not on home O2?), HTN, HLD, CAD(s/p PCI stent), GERD, seizure disorder presents after a fall on the morning of 08/30/18. Pt. states that he was trying to lift a wooden ladder from his closet. After the ladder hit the right side of his hed the Pt. fell to the ground and hit the right side of his body. Pt. did not lose consciousness and denies any prodromal symptoms before the fall. Pt.'s nephew who he lives with at home came immediately to his assistance and carried him to his room. Pt. states he did not come in then because he did not want to spend [place] Sad[place] or Aung in the hospital. Pt. normally walks around at home with his walker or cane. Pt. uses a motorized scooter to ambulate outside of his house. Pt. denies any dizziness, lightheadedness, chest pain, abdominal pain, shortness of breath or numbness/tingling in extremities. a/p right superior rami fx s/p thr with protrusio unchanged from 2013 xrays PT eval wbat pain control dvt ppx will follow d/w Dr. Lewis
[2018-09-02] MEDS: PHENYTOIN NA EXTENDED 100 MG CAPSULE (FP) PO SCH ×2 (10:26→21:11)
[2018-09-02] MEDS: ASPIRIN 81 MG CHEWABLE TABLETS PO SCH (10:26)
[2018-09-02] MEDS: PANTOPRAZOLE 40 MG TABLET (FP) PO SCH (10:26)
[2018-09-02] MEDS: FLUTICASONE PROP 0.05% 16 GM NASAL SPRAY NS SCH (10:27)
--- NOTE | 2018-09-02 12:15 | EKG ---
Test Reason : Blood Pressure : / mmHG Vent. 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
[2018-09-02] MEDS: TIOTROPIUM BROMIDE 2.5 MCG (SPIRIVA) RESPIMAT INHALER IH SCH (14:41)
--- NOTE | 2018-09-02 15:24 | CON.PULM ---
Consult Consult Specialty:: PULM/CCM Referred by:: EVELIA Reason for Consultation:: COPD - History of Present Illness Chief Complaint: SOB History of Present Illness: 72 M , well known to our service. COPD due to previous smoking history, DVT, HTN, HLD, seizure disorder, and GERD. Admitted via the ER due to Right sided shoulder and and hip pain for 3 days. He apparently had a ladder fall on him while trying to remove it from the closet. It struck the right side of his head which resulted in him falling on his right side. No LOC. He does have symptoms of chronic bronchitis: daily cough with thick yellow mucous production. It is occasionally blood tinged. No fever or chills. No travel history or sick contacts. - History Source History Provided By: Patient Limitations to Obtaining History: No Limitations - Past Medical History Cardio/Vascular: Yes: CAD (s/p PCI with cardiac stent), HTN, Hyperlipdemia Pulmonary: Yes: COPD, O2 Dependent Gastrointestinal: Yes: GERD - Past Surgical History Past Surgical History: Yes: Joint Replacement - Alcohol/Substance Use Hx Alcohol Use: No - Smoking History Smoking history: Never smoked Have you smoked in the past 12 months: No Aproximately how many cigarettes per day: 0 If you are a former smoker, when did you quit?: 14 years - Social History History of Recent Travel: No Home Medications - Allergies Allergies/Adverse Reactions: Allergies Allergy/AdvReac Type Severity Reaction Status Date / Time No Known Drug Allergies Allergy Verified 09/01/18 13:31 - Home Medications Home Medications: Ambulatory Orders Esomeprazole Mag Trihydrate [Nexium] 40 mg PO DAILY 06/11/14 Phenytoin Na Extended [Dilantin -] 100 mg PO BID 06/11/14 Tiotropium [place] [Spiriva] 1 inh PO DAILY 06/11/14 Acetaminophen [Tylenol .Regular Strength -] 325 mg PO Q8H #270 tablet 06/15/14 Aspirin [ASA -] 81 mg PO DAILY #90 tab.chew 06/15/14 Diltiazem HCl [Dilacor Xr] 120 mg PO DAILY #120 cap.er.deg 06/15/14 Montelukast Na [Singulair -] 10 mg PO HS #90 tablet 06/15/14 Simvastatin [Zocor -] 20 mg PO HS #90 06/15/14 Levalbuterol Tartrate [Xopenex Hfa] 15 gm IH BID 02/04/16 Guaifenesin Dm [Robitussin Dm -] 10 ml PO Q4H PRN #600 ml 10/30/16 Azithromycin 500 mg PO DAILY 2 Days #2 tablet MDD 1 12/19/17 Fluticasone Prop 0.05% Nasal [Flonase -] 2 spray NS DAILY #1 spray MDD 2 Prednisone See Taper PO DAILY 10 Days #22 tablet 12/19/17 Review of Systems - Review of Systems Constitutional: denies: Chills, Fever, Malaise, Night Sweats, Unintentional Wgt. Loss Eyes: reports: No Symptoms HENT: reports: No Symptoms Neck: reports: No Symptoms Cardiovascular: denies: Chest Pain, Edema, Palpitations, Shortness of Breath Respiratory: reports: Cough, SOB on Exertion. denies: Hemoptysis, Snoring, SOB , Wheezing Gastrointestinal: reports: No Symptoms Genitourinary: reports: No Symptoms Breasts: reports: No Symptoms Reported Musculoskeletal: reports: Back Pain, Decreased ROM, Extremity Pain, Joint Pain, Muscle Pain, Muscle Cramps Integumentary: reports: No Symptoms Neurological: reports: No Symptoms Endocrine: reports: No Symptoms Hematology/Lymphatic: reports: No Symptoms Psychiatric: reports: No Symptoms Physical Exam Vital Sings: Vital Signs Temperature 97.6 F 09/02/18 06:00 Pulse Rate 81 09/02/18 10:00 Respiratory Rate 20 09/02/18 10:00 Blood Pressure 141/64 09/02/18 10:00 O2 Sat by Pulse Oximetry (%) 95 09/02/18 09:00 Constitutional: Yes: No Distress, Thin Eyes: Yes: Conjunctiva Clear, EOM Intact HENT: Yes: Atraumatic, Normocephalic Neck: Yes: Supple, Trachea Midline Cardiovascular: Yes: Regular Rate and Rhythm Respiratory: Yes: Cough, Diminished, SOB on Exertion. No: Accessory Muscle Use , Rales, Rhonchi, SOB, Stridor, Tachypnea, Wheezes ...Inspection: Yes: WNL ...Clubbing: No Gastrointestinal: Yes: Normal Bowel Sounds, Soft Renal/: Yes: WNL Musculoskeletal: Yes: WNL Extremities: Yes: WNL Edema: No Peripheral Pulses WNL: Yes Integumentary: Yes: WNL Neurological: Yes: WNL, Alert, Oriented ...Motor Strength: WNL Psychiatric: Yes: WNL, Alert, Oriented Labs: CBC, BMP 09/02/18 06:30 09/02/18 06:30 Imaging - Results Chest X-ray: Report Reviewed, Image Reviewed Problem List - Problems (1) Right hip pain Code(s): M25.551 - PAIN IN RIGHT HIP (2) Back pain Code(s): M54.9 - DORSALGIA, UNSPECIFIED (3) COPD (chronic obstructive pulmonary disease) Code(s): J44.9 - CHRONIC OBSTRUCTIVE PULMONARY DISEASE, UNSPECIFIED (4) Cachexia Code(s): R64 - CACHEXIA (5) Cough Code(s): R05 - COUGH (6) DVT (deep venous thrombosis) Code(s): I82.409 - ACUTE EMBOLISM AND THOMBOS UNSP DEEP VN UNSP LOWER EXTREMITY (7) GERD (gastroesophageal reflux disease) Code(s): K21.9 - GASTRO-ESOPHAGEAL REFLUX DISEASE WITHOUT ESOPHAGITIS (8) HTN (hypertension) Code(s): I10 - ESSENTIAL (PRIMARY) HYPERTENSION (9) Hypercholesterolemia Code(s): E78.0 - PURE HYPERCHOLESTEROLEMIA * DO NOT USE * (10) Pulmonary hypertension Code(s): I27.2 - OTHER SECONDARY PULMONARY HYPERTENSION * DO NOT USE * (11) Seasonal allergies Code(s): J30.2 - OTHER SEASONAL ALLERGIC RHINITIS (12) Seizure disorder Code(s): G40.909 - EPILEPSY, UNSP, NOT INTRACTABLE, WITHOUT STATUS EPILEPTICUS Assessment/Plan Continue daily Spiriva Monitor off ABX BD TX PRN No indication for systemic steroids O2 as needed No smoking counseled PT Ortho evaluation Fall precautions Nutritional support Will follow Thank you. Dr Garay
--- NOTE | 2018-09-02 17:19 | HP ---
Admitting History and Physical - Primary Care Physician PCP: Joshua Durán - Admission Chief Complaint: fall History of Present Illness: Pt in his house, tried to change a broken bulb using a ladder, lost his footing while trying to open the ladder and the ladder fell over the patient. Pt w/o CP , palpitations, dizziness, SOB before or after the fall. History Source: Patient - Past Medical History Cardiovascular: Yes: CAD (s/p PCI with cardiac stent), HTN, Hyperlipdemia Pulmonary: Yes: COPD, O2 Dependent Gastrointestinal: Yes: GERD - Past Surgical History Past Surgical History: Yes: Joint Replacement - Smoking History Smoking history: Never smoked Have you smoked in the past 12 months: No Aproximately how many cigarettes per day: 0 If you are a former smoker, when did you quit?: 14 years - Alcohol/Substance Use Hx Alcohol Use: No - Social History History of Recent Travel: No Home Medications - Allergies Allergies/Adverse Reactions: Allergies Allergy/AdvReac Type Severity Reaction Status Date / Time No Known Drug Allergies Allergy Verified 09/01/18 13:31 - Home Medications Home Medications: Ambulatory Orders Esomeprazole Mag Trihydrate [Nexium] 40 mg PO DAILY 06/11/14 Phenytoin Na Extended [Dilantin -] 100 mg PO BID 06/11/14 Tiotropium [place] [Spiriva] 1 inh PO DAILY 06/11/14 Acetaminophen [Tylenol .Regular Strength -] 325 mg PO Q8H #270 tablet 06/15/14 Diltiazem HCl [Dilacor Xr] 120 mg PO DAILY #120 cap.er.deg 06/15/14 Montelukast Na [Singulair -] 10 mg PO HS #90 tablet 06/15/14 Simvastatin [Zocor -] 20 mg PO HS #90 06/15/14 Levalbuterol Tartrate [Xopenex Hfa] 15 gm IH BID 02/04/16 Fluticasone Prop 0.05% Nasal [Flonase -] 2 spray NS DAILY #1 spray MDD 2 Albuterol 0.083% Nebulizer [place] [Ventolin 0.083% Nebulizer Soln -] 1 amp NEB Q6H PRN amp 09/06/18 Aspirin/Dipyridamole [Aggrenox -] 1 combo PO BID capsule 09/06/18 Atorvastatin Ca [Lipitor] 20 mg PO HS tablet 09/06/18 Magnesium Oxide [Mag-Ox -] 400 mg PO BID tablet 09/06/18 Review of Systems - Review of Systems Constitutional: denies: Chills, Fever Eyes: denies: Blurred Vision, Double Vision, Recent Change in Vision HENT: denies: Ear Discharge, Nasal Congestion, Throat Pain Neck: denies: Lumps, Pain on Movement, Stiffness Cardiovascular: denies: Chest Pain, Edema, Palpitations Respiratory: denies: Cough (chronic), SOB, Wheezing Gastrointestinal: denies: Abdominal Pain, Constipation, Diarrhea, Vomiting Genitourinary: denies: Burning, Discharge, Dysuria Musculoskeletal: denies: Back Pain, Muscle Pain Integumentary: denies: Bruising, Change in Color Neurological: denies: Change in LOC, Numbness, Tremors Endocrine: denies: Excessive Sweating, Intolerance to Cold Hematology/Lymphatic: denies: Easily Bruised, Excessive Bleeding Physical Examination Vital Signs: Vital Signs Temperature 98.0 F 09/02/18 15:39 Pulse Rate 83 09/02/18 15:39 Respiratory Rate 20 09/02/18 15:39 Blood Pressure 119/61 09/02/18 15:39 O2 Sat by Pulse Oximetry (%) 95 09/02/18 09:00 Constitutional: Yes: No Distress, Calm Eyes: Yes: Conjunctiva Clear, EOM Intact, PERRL HENT: No: Pharyngeal Erythema, Rhinnorhea Neck: Yes: Trachea Midline. No: Lymphadenopathy Cardiovascular: Yes: Regular Rate and Rhythm, S1, S2 Respiratory: Yes: Regular, CTA Bilaterally, Other (coarse BS at bases) Gastrointestinal: Yes: Normal Bowel Sounds, Soft. No: Tenderness ...Rectal Exam: Yes: Deferred Renal/: No: CVA Tenderness - Left, CVA Tenderness - Right Musculoskeletal: No: Back Pain, Joint Swelling Extremities: Yes: Cold, Cool Edema: No Integumentary: No: Bruising, Erythema Neurological: Yes: Alert, Oriented, Other (motor and sensory examinationis symmetric in UE/LE/ face) Labs: CBC, BMP 09/02/18 06:30 09/02/18 06:30 Imaging - Results Chest X-ray: Report Reviewed X-ray: Report Reviewed Cat Scan: Report Reviewed Problem List - Problems (1) Pelvic fracture Code(s): S32.9XXA - FRACTURE OF UNSP PARTS OF LUMBOSACRAL SPINE AND PELVIS, INIT (2) CAD (coronary artery disease) Code(s): I25.10 - ATHSCL HEART DISEASE OF [place] CORONARY ARTERY W/O ANG PCTRS (3) COPD (chronic obstructive pulmonary disease) Code(s): J44.9 - CHRONIC OBSTRUCTIVE PULMONARY DISEASE, UNSPECIFIED (4) GERD (gastroesophageal reflux disease) Code(s): K21.9 - GASTRO-ESOPHAGEAL REFLUX DISEASE WITHOUT ESOPHAGITIS (5) Hypokalemia Code(s): E87.6 - HYPOKALEMIA (6) Seizure disorder Code(s): G40.909 - EPILEPSY, UNSP, NOT INTRACTABLE, WITHOUT STATUS EPILEPTICUS (7) Anemia Code(s): D64.9 - ANEMIA, UNSPECIFIED (8) Leukocytosis Code(s): D72.829 - ELEVATED WHITE BLOOD CELL COUNT, UNSPECIFIED (9) Severe malnutrition Code(s): E43 - UNSPECIFIED SEVERE PROTEIN-CALORIE MALNUTRITION (10) Cachexia Code(s): R64 - CACHEXIA Assessment/Plan Ortho consult Pain control Pt eval AM labs
[2018-09-02] MEDS: ATORVASTATIN CA 10 MG TABLET (FP) PO SCH (21:11)
[2018-09-02] MEDS: MONTELUKAST NA 10 MG TABLET PO SCH (21:12)
[2018-09-02] MEDS ORDERED: POTASSIUM CHLORIDE TABS 20 MEQ TABLET.ER (FP) PO ONE (23:42)
[2018-09-03] MEDS: ACETAMINOPHEN 325 MG TABLET (FP) PO SCH ×3 (06:02→21:24)
[2018-09-03 09:16] LABS: HEMATOCRIT 33.5 % (35.4-49); HEMOGLOBIN 10.4 GM/dL (11.7-16.9); MCH 24.8 pg (25.7-33.7); MEAN PLT VOLUME 9.5 fl (7.5-11.1); PLATELET COUNT 139 K/MM3 (134-434); RBC 4.19 M/mm3 (4.00-5.60); RDW 14.6 % (11.9-15.9); WHITE BLOOD COUNT 11.1 K/mm3 (4.0-10.0)
--- NOTE | 2018-09-03 09:45 | PN ---
Progress Note, Physician History of Present Illness: Pt w/o SOB, CP, palpitations, dizziness, weakness or sensory deficit in UE/ LE/ face. Pt with pelvic/ hip pain, not able to take more than couple of steps with help. - Current Medication List Current Medications: Active Medications Acetaminophen (Tylenol -) 325 mg PO TID [facility] Last Admin: 09/03/18 06:02 Dose: 325 mg Albuterol Sulfate (Ventolin 0.083% Nebulizer Soln -) 1 amp NEB Q6H PRN PRN Reason: SHORT OF BREATH/WHEEZING Aspirin (Asa -) 81 mg PO DAILY [facility] Last Admin: 09/02/18 10:26 Dose: 81 mg Atorvastatin Calcium (Lipitor -) 10 mg PO HS [facility] Last Admin: 09/02/18 21:11 Dose: 10 mg Diltiazem HCl (Cardizem Cd -) 120 mg PO DAILY [facility] Last Admin: 09/02/18 10:26 Dose: 120 mg Fluticasone Propionate (Flonase -) 2 spray NS DAILY [facility] Last Admin: 09/02/18 10:27 Dose: 2 puff Montelukast Sodium (Singulair -) 10 mg PO HS [facility] Last Admin: 09/02/18 21:12 Dose: 10 mg Pantoprazole Sodium (Protonix -) 40 mg PO DAILY [facility] Last Admin: 09/02/18 10:26 Dose: 40 mg Phenytoin Sodium (Dilantin -) 100 mg PO BID [facility] Last Admin: 09/02/18 21:11 Dose: 100 mg Tiotropium [place] (Spiriva Respimat) 2 puff IH DAILY [facility] Last Admin: 09/02/18 14:41 Dose: 2 puff - Objective Vital Signs: Vital Signs Temperature 98.2 F 09/03/18 06:00 Pulse Rate 70 09/03/18 06:00 Respiratory Rate 20 09/03/18 06:00 Blood Pressure 106/66 09/03/18 06:00 O2 Sat by Pulse Oximetry (%) 96 09/02/18 20:42 Constitutional: Yes: No Distress, Calm Cardiovascular: Yes: Regular Rate and Rhythm, S1, S2 Respiratory: Yes: Regular, Rhonchi (monimal, scattered). No: Wheezes Gastrointestinal: Yes: Normal Bowel Sounds, Soft. No: Tenderness Edema: No Neurological: Yes: Alert, Oriented, Other (motor and sensory examination is symmetric in UE and LE and face) Labs: CBC, BMP 09/03/18 08:30 INR, PTT INR 1.20 (0.83-1.09) H 09/01/18 15:30 Problem List - Problems (1) Pelvic fracture Code(s): S32.9XXA - FRACTURE OF UNSP PARTS OF LUMBOSACRAL SPINE AND PELVIS, INIT (2) CAD (coronary artery disease) Code(s): I25.10 - ATHSCL HEART DISEASE OF [place] CORONARY ARTERY W/O ANG PCTRS (3) COPD (chronic obstructive pulmonary disease) Code(s): J44.9 - CHRONIC OBSTRUCTIVE PULMONARY DISEASE, UNSPECIFIED (4) GERD (gastroesophageal reflux disease) Code(s): K21.9 - GASTRO-ESOPHAGEAL REFLUX DISEASE WITHOUT ESOPHAGITIS (5) Hypokalemia Code(s): E87.6 - HYPOKALEMIA (6) Seizure disorder Code(s): G40.909 - EPILEPSY, UNSP, NOT INTRACTABLE, WITHOUT STATUS EPILEPTICUS (7) Anemia Code(s): D64.9 - ANEMIA, UNSPECIFIED (8) Leukocytosis Code(s): D72.829 - ELEVATED WHITE BLOOD CELL COUNT, UNSPECIFIED (9) CVA (cerebral vascular accident) Assessment/Plan: old and possible new. ECHO, Holted monitor, Carotid US Cardio consult. Neuro consult Code(s): I63.9 - CEREBRAL INFARCTION, UNSPECIFIED Assessment/Plan Ortho consult is appreciated Pain control PT lisbet Case was d/w pt's nurse.
[2018-09-03 09:47] LABS: ANION GAP 8 MMOL/L (8-16); BLOOD UREA NITROGEN 9 mg/dL (7-18); CHLORIDE 106 mmol/L (98-107); CO2 28 mmol/L (21-32); CREATININE 0.4 mg/dL (0.55-1.3); GLUCOSE,RANDOM 79 mg/dL (74-106); MAGNESIUM 1.7 mg/dL (1.8-2.4); POTASSIUM 3.5 mmol/L (3.5-5.1); SODIUM 142 mmol/L (136-145)
[2018-09-03] MEDS ORDERED: PT OWN MED DRAWER 7, Y5N ONE ×2 (10:07→21:02)
[2018-09-03] MEDS: PHENYTOIN NA EXTENDED 100 MG CAPSULE (FP) PO SCH ×2 (11:15→21:24)
[2018-09-03] MEDS: ASPIRIN 81 MG CHEWABLE TABLETS PO SCH (11:16)
[2018-09-03] MEDS: PANTOPRAZOLE 40 MG TABLET (FP) PO SCH (11:16)
[2018-09-03] MEDS: FLUTICASONE PROP 0.05% 16 GM NASAL SPRAY NS SCH (11:16)
[2018-09-03] MEDS: TIOTROPIUM BROMIDE 2.5 MCG (SPIRIVA) RESPIMAT INHALER IH SCH (11:16)
[2018-09-03 11:44] VITALS: BMI 13.1
--- NOTE | 2018-09-03 11:57 | CON.CARD ---
Cardiology Consult (text) - Consultation Consultation Note: cc: s/p fall hpi: 72 m hx copd, htn, hld here s/p fall. Pt was trying to carry a heavy ladder and it fell on him and he fell to ground. No prodrome sxs. No loc. No cp sob palps dizzy pnd orthopnea le edema. Head ct here showing cva (?old vs new). pmh: per hpi psh: thr social: ex tob ros: per hpi; no nvd fever cough vision changes gib hematuria dysuria fam: no premature cad meds: Home Medications Medication Instructions Recorded Esomeprazole Mag Trihydrate 40 mg PO DAILY 06/11/14 [Nexium] Phenytoin Na Extended [Dilantin -] 100 mg PO BID 06/11/14 Tiotropium [place] [Spiriva] 1 inh PO DAILY 06/11/14 Acetaminophen [Tylenol .Regular 325 mg PO Q8H #270 tablet 06/15/14 Strength -] Aspirin [ASA -] 81 mg PO DAILY #90 tab.chew 06/15/14 Diltiazem HCl [Dilacor Xr] 120 mg PO DAILY #120 cap.er.deg 06/15/14 Montelukast Na [Singulair -] 10 mg PO HS #90 tablet 06/15/14 Simvastatin [Zocor -] 20 mg PO HS #90 06/15/14 Levalbuterol Tartrate [Xopenex Hfa] 15 gm IH BID 02/04/16 Guaifenesin Dm [Robitussin Dm -] 10 ml PO Q4H PRN #600 ml 10/30/16 Azithromycin 500 mg PO DAILY 2 Days #2 tablet 12/19/17 MDD 1 Fluticasone Prop 0.05% Nasal 2 spray NS DAILY #1 spray MDD 2 12/19/17 [Flonase -] Prednisone See Taper PO DAILY 10 Days #22 12/19/17 tablet pe: Vital Signs Period Temp Pulse Resp BP Sys/Fernández Pulse Ox Last 24 Hr 98.0 F-98.5 F 70-83 20-20 106-121/55-66 96 nad no jvd rrr s1s2 no mrg cta bl nl eff aaox3 no le e/c/c abd nt nd pos bd no jaundice diaphoresis pos dp pt no carotid bruits Laboratory Last Values WBC 11.1 K/mm3 (4.0-10.0) H 09/03/18 08:30 RBC 4.19 M/mm3 (4.00-5.60) 09/03/18 08:30 Hgb 10.4 GM/dL (11.7-16.9) L 09/03/18 08:30 Hct 33.5 % (35.4-49) L 09/03/18 08:30 MCV 80.0 fl (80-96) 09/03/18 08:30 MCH 24.8 pg (25.7-33.7) L 09/03/18 08:30 MCHC 31.0 g/dl (32.0-35.9) L 09/03/18 08:30 RDW 14.6 % (11.9-15.9) 09/03/18 08:30 Plt Count 139 K/MM3 (134-434) 09/03/18 08:30 MPV 9.5 fl (7.5-11.1) 09/03/18 08:30 Absolute Neuts (auto) 13.7 K/mm3 (1.5-8.0) H 09/01/18 15:30 Neutrophils % 78.9 % (42.8-82.8) 09/01/18 15:30 Lymphocytes % 8.3 % (8-40) 09/01/18 15:30 Monocytes % 12.2 % (3.8-10.2) H 09/01/18 15:30 Eosinophils % 0.1 % (0-4.5) D 09/01/18 15:30 Basophils % 0.5 % (0-2.0) 09/01/18 15:30 Nucleated RBC % 0 % (0-0) 09/01/18 15:30 ESR 23 mm/hr (0-20) H 09/02/18 06:30 PT with INR 14.20 SEC (9.7-13.0) H 09/01/18 15:30 INR 1.20 (0.83-1.09) H 09/01/18 15:30 PTT (Actin FS) 20.0 SECONDS (25.2-36.5) L 09/01/18 15:30 Sodium 142 mmol/L (136-145) 09/03/18 08:30 Potassium 3.5 mmol/L (3.5-5.1) 09/03/18 08:30 Chloride 106 mmol/L (98-107) 09/03/18 08:30 Carbon Dioxide 28 mmol/L (21-32) 09/03/18 08:30 Anion Gap 8 MMOL/L (8-16) 09/03/18 08:30 BUN 9 mg/dL (7-18) 09/03/18 08:30 Creatinine 0.4 mg/dL (0.55-1.3) L 09/03/18 08:30 Creat Clearance w eGFR > 60 (>60) 09/03/18 08:30 Random Glucose 79 mg/dL (74-106) 09/03/18 08:30 Calcium 8.0 mg/dL (8.5-10.1) L 09/03/18 08:30 Magnesium 1.7 mg/dL (1.8-2.4) L 09/03/18 08:30 Total Bilirubin 0.7 mg/dL (0.2-1) 09/01/18 15:16 AST 15 U/L (15-37) 09/01/18 15:16 ALT 20 U/L (13-61) 09/01/18 15:16 Alkaline Phosphatase 175 U/L (45-117) H 09/01/18 15:16 Creatine Kinase Cancelled 09/01/18 15:30 Troponin I 0.02 ng/ml (0.00-0.05) 09/01/18 17:20 B-Natriuretic Peptide 252.9 pg/ml (5-125) H 09/01/18 15:16 Total Protein 7.0 g/dl (6.4-8.2) 09/01/18 15:16 Albumin 3.6 g/dl (3.4-5.0) 09/01/18 15:16 Triglycerides 117 mg/dL (0-150) 09/02/18 06:30 Cholesterol 156 mg/dL (50-200) 09/02/18 06:30 Total LDL Cholesterol 87 mg/dL (5-100) 09/02/18 06:30 HDL Cholesterol 42 mg/dL (40-60) 09/02/18 06:30 Urine Color Dkyellow 09/02/18 00:01 Urine Appearance Clear 09/02/18 00:01 Urine pH 5.0 (5.0-8.0) 09/02/18 00:01 Ur Specific [place] 1.034 (1.010-1.035) 09/02/18 00:01 Urine Protein Negative (NEGATIVE) 09/02/18 00:01 Urine Glucose (UA) Negative (NEGATIVE) 09/02/18 00:01 Urine Ketones 1+ (NEGATIVE) H 09/02/18 00:01 Urine Blood Negative (NEGATIVE) 09/02/18 00:01 Urine Nitrite Negative (NEGATIVE) 09/02/18 00:01 Urine Bilirubin Negative (<2.0 mg/dL) 09/02/18 00:01 Urine Urobilinogen 4.0 e.u/dl mg/dL (0.2-1.0) 09/02/18 00:01 Ur Leukocyte Esterase Negative (NEGATIVE) 09/02/18 00:01 Blood Type B POSITIVE 09/01/18 15:30 Antibody Screen Negative 09/01/18 15:30 mibi 02/2013: no ischemia, nl lvef cath 2007: non obs cad echo 09/2013: nl lv/rv, mild mr, mild tr, mild pr ecg: sr, nl intervals, pvcs, no ischemic changes, old irbbb cxr: clear lungs a/p: 72 m hx copd, htn, hld here s/p fall. fall: -mechanical fall -pelvic fx seen on ct, ortho following htn: -stable on dilt hld: -cont statin cva: -head ct here showing small infarcts, old vs new -check echo, carotids, holter -neuro eval -outpt event monitor to look for occult afib if inpt testing unremarkable -cont asa, statin, bp control
--- NOTE | 2018-09-03 12:13 | PN ---
Progress Note (short form) - Note Progress Note: PULMONARY APEARS COMFORTABLE IN BED/EATING LUNCH HAS RIGHT SIDED HIP PAIN UPON MOVEMENT VSS TEMPORAL WASTING/ ANICTERIC DIMINISHED BUT CLEAR LUNG SOUNDS S1S2 BS+ NO EDEMA LABS/MEDS/NOTES/IMAGES REVIEWED (1) Right hip pain Code(s): M25.551 - PAIN IN RIGHT HIP (2) Back pain Code(s): M54.9 - DORSALGIA, UNSPECIFIED (3) COPD (chronic obstructive pulmonary disease) Code(s): J44.9 - CHRONIC OBSTRUCTIVE PULMONARY DISEASE, UNSPECIFIED (4) Cachexia Code(s): R64 - CACHEXIA (5) Cough Code(s): R05 - COUGH (6) DVT (deep venous thrombosis) Code(s): I82.409 - ACUTE EMBOLISM AND THOMBOS UNSP DEEP VN UNSP LOWER EXTREMITY (7) GERD (gastroesophageal reflux disease) Code(s): K21.9 - GASTRO-ESOPHAGEAL REFLUX DISEASE WITHOUT ESOPHAGITIS (8) HTN (hypertension) Code(s): I10 - ESSENTIAL (PRIMARY) HYPERTENSION (9) Hypercholesterolemia Code(s): E78.0 - PURE HYPERCHOLESTEROLEMIA * DO NOT USE * (10) Pulmonary hypertension Code(s): I27.2 - OTHER SECONDARY PULMONARY HYPERTENSION * DO NOT USE * (11) Seasonal allergies Code(s): J30.2 - OTHER SEASONAL ALLERGIC RHINITIS (12) Seizure disorder Code(s): G40.909 - EPILEPSY, UNSP, NOT INTRACTABLE, WITHOUT STATUS EPILEPTICUS Assessment/Plan Continue daily Spiriva Monitor off ABX BD TX PRN No indication for systemic steroids O2 as needed No smoking counseled PT Ortho follow up Fall precautions Nutritional support Will follow likely snf candidate upon discharge Alejo CLANCY MD
--- NOTE | 2018-09-03 12:49 | ECHO ---
Name: GINNY, GENE Exam:Adult Echocardiogram Study Date: 09/03/2018 11:32 AM Age: 72 yrs Reason For Study: CVA Height: 69 in Weight: 89 lb BSA: 1.5 m2 MMode/2D Measurements & Calculations IVSd: 1.6 cm Ao root diam: 3.4 cm LVIDd: 3.3 cm LA dimension: 2.4 cm LVIDs: 2.1 cm LVPWd: 1.0 cm EDV(Teich): 44.8 ml LAV (MOD-bp): 36.8 ml ESV(Teich): 15.1 ml Doppler Measurements & Calculations MV E max polo: 60.1 cm/sec Med Peak E' Polo: 5.8 cm/sec MV A max polo: 98.5 cm/sec Med E/e': 10.4 MV E/A: 0.61 Lat Peak E' Polo: 10.3 cm/sec MV dec time: 0.09 sec Lat E/e': 5.8 PI Vmax: 85.5 cm/sec Left Ventricle Left ventricular systolic function is normal. Ejection Fraction = 50-55%. The transmitral spectral Do ppler flow pattern is suggestive of impaired LV relaxation. Septal motion is consistent with conduction abn ormality. Right Ventricle The right ventricle is normal in size and function. Atria The left atrium is borderline dilated. Mitral Valve There is mild mitral valve thickening. There is no mitral valve stenosis. There is trace to mild mitr al regurgitation. Tricuspid Valve The tricuspid valve is normal in structure and function. There is mild tricuspid regurgitation. Aortic Valve Area of focal thickening/ nodular calcification on the aortic valve. No hemodynamically significant v alvular aortic stenosis. No aortic regurgitation is present. Pulmonic Valve The pulmonic valve is not well seen, but is grossly normal. There is no pulmonic valvular stenosis. T here is no pulmonic valvular regurgitation. Great Vessels The aortic root is normal size. Pericardium/Pleura There is no pericardial effusion. Interpretation Summary Septal motion is consistent with conduction abnormality. Left ventricular systolic function is normal. Ejection Fraction = 50-55%. The transmitral spectral Doppler flow pattern is suggestive of impaired LV relaxation. The right ventricle is normal in size and function. The left atrium is borderline dilated. There is mild mitral valve thickening. There is trace to mild mitral regurgitation. There is mild tricuspid regurgitation. Area of focal thickening/ nodular calcification on the aortic valve. There is no pericardial effusion. MD Callahan *Christopher 09/03/2018 12:49 PM
--- NOTE | 2018-09-03 14:28 | PN ---
Progress Note (short form) - Note Progress Note: Ortho Pt seen and examined s/p right superior pubi rami fx Selected Entries 09/03/18 06:00 Temperature 98.2 F Pulse Rate 70 Respiratory 20 Rate Blood Pressure 106/66 Laboratory Tests 09/03/18 08:30 WBC 11.1 H Hgb 10.4 L Hct 33.5 L Plt Count 139 decr pain, incr rom, nvi able to ambulate in PT a/p PT wbat pain control ok to d/c from ortho pov d/w Dr. Lewis
--- NOTE | 2018-09-03 14:43 | CONSULT ---
Consult - text type - Consultation Consultation Note: Neurology History of Present Illness 72 y.o. M w/ PMHx. of DVT, COPD (not on home O2?), HTN, HLD, CAD(s/p PCI stent) , GERD, seizure disorder presents after a fall on the morning of 08/30/18. Pt. stated that he was trying to lift a wooden ladder from his closet. After the ladder hit the right side of his head the patient reportedly fell to the ground and hit the right side of his body. He denies loss of consciousness and denies any prodromal symptoms before the fall. Pt.'s nephew who he lives with at home came immediately to his assistance and carried him to his room. Pt. stated he did not come in then because he did not want to spend [place] in the hospital. Pt. normally walks around at home with his walker or cane. Pt. uses a motorized scooter to ambulate outside of his house. he was admitted for further evaluation and noncontrast head CT showed ?left cerebellar infarcts, small in size, uncertain age. Discussed this with the patient and he denies any symptoms and specifically no dizziness or difficulty with coordination. In fact, he reports being completely asymptomatic and I offered MRI brain to further evaluate but he did not want to pursue further imaging. he is on daily aspirin 81 mg along with atorvastatin 10 mg, LDL 87. Past History - Past Medical History Allergies/Adverse Reactions: Allergies Allergy/AdvReac Type Severity Reaction Status Date / Time No Known Drug Allergies Allergy Verified 09/01/18 13:31 Home Medications: Ambulatory Orders Esomeprazole Mag Trihydrate [Nexium] 40 mg PO DAILY 06/11/14 Phenytoin Na Extended [Dilantin -] 100 mg PO BID 06/11/14 Tiotropium [place] [Spiriva] 1 inh PO DAILY 06/11/14 Acetaminophen [Tylenol .Regular Strength -] 325 mg PO Q8H #270 tablet 06/15/14 Aspirin [ASA -] 81 mg PO DAILY #90 tab.chew 06/15/14 Diltiazem HCl [Dilacor Xr] 120 mg PO DAILY #120 cap.er.deg 06/15/14 Montelukast Na [Singulair -] 10 mg PO HS #90 tablet 06/15/14 Simvastatin [Zocor -] 20 mg PO HS #90 06/15/14 Levalbuterol Tartrate [Xopenex Hfa] 15 gm IH BID 02/04/16 Guaifenesin Dm [Robitussin Dm -] 10 ml PO Q4H PRN #600 ml 10/30/16 Azithromycin 500 mg PO DAILY 2 Days #2 tablet MDD 1 12/19/17 Fluticasone Prop 0.05% Nasal [Flonase -] 2 spray NS DAILY #1 spray MDD 2 Prednisone See Taper PO DAILY 10 Days #22 tablet 12/19/17 Anemia: No Cardiac Disorders: Yes (CAD s/p PCI stent) COPD: Yes DVT: No Dialysis: No GI Disorders: Yes (GERD) HTN: Yes Hypercholesterolemia: Yes Kidney Stones: No Seizures: Yes - Surgical History Orthopedic Surgery: Yes (rt total hip) - Immunization History Immunization Up to Date: Yes - Suicide/Smoking/Psychosocial Hx Smoking Status: No Smoking History: Never smoked Have you smoked in the past 12 months: No Number of Cigarettes Smoked Daily: 0 If you are a former smoker, when did you quit?: 14 years Information on smoking cessation initiated: No 'Breaking Loose' booklet given: 02/04/16 Hx Alcohol Use: No Drug/Substance Use Hx: No Substance Use Type: None Hx Substance Use Treatment: No Review of Systems - Review of Systems Able to Perform ROS?: Yes Is the patient limited [place]ian proficient: No Constitutional: No: Chills, Fever, Loss of Appetite, Malaise, Weakness HEENTM: No: Eye Pain, Double Vision, Ear Pain, Nose Pain, Throat Pain Respiratory: Yes: Cough. No: Shortness of Breath, Wheezing, Productive cough Cardiac (ROS): No: Chest Pain, Edema, Irregular Heart Rate, Lightheadedness, Palpitations ABD/GI: No: Constipated, Diarrhea, Nausea, Vomiting, Abdominal cramping : No: Discharge, Frequency Musculoskeletal: Yes: Joint Pain (right hip and right knee). No: Muscle Weakness Neurological: No: Headache, Numbness, Seizure, Unsteady Gait, Ataxia, Dizziness *Physical Exam - Vital Signs Last Vital Signs Temp Pulse Resp BP Pulse Ox 98.2 F 90 16 131/76 95 09/01/18 13:30 09/01/18 13:30 09/01/18 13:30 09/01/18 13:30 09/01/18 13:30 - Physical Exam General Appearance: Yes: Disheveled, Mild Distress, Cachetic, Thin HEENT: positive: Normal Voice, Pharynx Normal, Excessive drooling. negative: Symmetrical Neck: positive: Trachea midline. negative: Carotid bruit Respiratory/Chest: positive: Lungs Clear, Normal Breath Sounds. negative: Respiratory Distress, Accessory Muscle Use, Crackles, Wheezing Cardiovascular: positive: Regular Rhythm, Regular Rate, S1, S2. negative: Edema , JVD, Murmur Vascular Pulses: Dorsalis-Pedis (R): 2+, Doralis-Pedis (L): 2+ Gastrointestinal/Abdominal: positive: Normal Bowel Sounds, Flat, Soft Musculoskeletal: positive: Decreased Range of Motion (Pt. refuses to move right leg). negative: CVA Tenderness (R) Extremity: negative: Normal Range of Motion, Pelvis Stable, Coldness, Calf Tenderness, Erythema Integumentary: positive: Dry (xerotic, flaky, poor skin turgor ). negative: Normal Color Neurologic: awake, alert, limited effort, moves all extremities equally, sensory intact, finger to nose normal CBCD WBC 11.1 K/mm3 (4.0-10.0) H 09/03/18 08:30 RBC 4.19 M/mm3 (4.00-5.60) 09/03/18 08:30 Hgb 10.4 GM/dL (11.7-16.9) L 09/03/18 08:30 Hct 33.5 % (35.4-49) L 09/03/18 08:30 MCV 80.0 fl (80-96) 09/03/18 08:30 MCHC 31.0 g/dl (32.0-35.9) L 09/03/18 08:30 RDW 14.6 % (11.9-15.9) 09/03/18 08:30 Plt Count 139 K/MM3 (134-434) 09/03/18 08:30 MPV 9.5 fl (7.5-11.1) 09/03/18 08:30 CMP Sodium 142 mmol/L (136-145) 09/03/18 08:30 Potassium 3.5 mmol/L (3.5-5.1) 09/03/18 08:30 Chloride 106 mmol/L (98-107) 09/03/18 08:30 Carbon Dioxide 28 mmol/L (21-32) 09/03/18 08:30 Anion Gap 8 MMOL/L (8-16) 09/03/18 08:30 BUN 9 mg/dL (7-18) 09/03/18 08:30 Creatinine 0.4 mg/dL (0.55-1.3) L 09/03/18 08:30 Creat Clearance w eGFR > 60 (>60) 09/03/18 08:30 Random Glucose 79 mg/dL (74-106) 09/03/18 08:30 Calcium 8.0 mg/dL (8.5-10.1) L 09/03/18 08:30 Total Bilirubin 0.7 mg/dL (0.2-1) 09/01/18 15:16 AST 15 U/L (15-37) 09/01/18 15:16 ALT 20 U/L (13-61) 09/01/18 15:16 Alkaline Phosphatase 175 U/L (45-117) H 09/01/18 15:16 Total Protein 7.0 g/dl (6.4-8.2) 09/01/18 15:16 Albumin 3.6 g/dl (3.4-5.0) 09/01/18 15:16 CARDIAC ENZYMES Creatine Kinase Cancelled 09/01/18 15:30 Troponin I 0.02 ng/ml (0.00-0.05) 09/01/18 17:20 Plan: 72 y.o. M w/ PMHx. of DVT, COPD (not on home O2?), HTN, HLD, CAD(s/p PCI stent) , GERD, seizure disorder presents after a fall on the morning of 08/30/18. Pt. stated that he was trying to lift a wooden ladder from his closet. He was admitted for further evaluation and noncontrast head CT showed ?left cerebellar infarcts, small in size, uncertain age. Discussed this with the patient and he denies any symptoms and specifically no dizziness or difficulty with coordination. Continue Dilantin for seizure prevention for now, not witnessed to have seizure episode. Remains asymptomatic and I offered MRI brain to further evaluate but he did not want to pursue further imaging. Will treat appropriately as CVA. Agree with carotid Dopplers, awaiting final report. Echo completed, cardiology follow up. At this time, we'll adjust aspirin to Aggrenox for increased stroke prevention. We'll also increased statin with goal LDL less than 70. Monitor blood pressure, maintain less than 140/90 for now, <130/ 80 as outpatient. Fall precautions recommended. Physical therapy as tolerated
[2018-09-03] MEDS: ATORVASTATIN CA 20 MG TABLET (FP) PO SCH (21:24)
[2018-09-03] MEDS: MONTELUKAST NA 10 MG TABLET PO SCH (21:24)
[2018-09-03] MEDS: MAGNESIUM OXIDE 400 MG TABLET (FP) PO SCH (22:28)
[2018-09-03] MEDS: ASPIRIN/DIPYRIDAMOLE 25 MG/200 MG CAPSULE (FP) PO SCH (22:28)
[2018-09-04] MEDS: ACETAMINOPHEN 325 MG TABLET (FP) PO SCH ×3 (06:04→21:18)
[2018-09-04] MEDS ORDERED: PT OWN MED DRAWER 7, Y5N ONE ×2 (09:53→21:06)
[2018-09-04] MEDS: PANTOPRAZOLE 40 MG TABLET (FP) PO SCH (09:56)
[2018-09-04] MEDS: MAGNESIUM OXIDE 400 MG TABLET (FP) PO SCH ×2 (09:56→21:18)
[2018-09-04] MEDS: TIOTROPIUM BROMIDE 2.5 MCG (SPIRIVA) RESPIMAT INHALER IH SCH (09:56)
[2018-09-04] MEDS: PHENYTOIN NA EXTENDED 100 MG CAPSULE (FP) PO SCH ×2 (09:56→21:18)
[2018-09-04] MEDS: ASPIRIN/DIPYRIDAMOLE 25 MG/200 MG CAPSULE (FP) PO SCH ×2 (09:56→21:18)
[2018-09-04] MEDS: FLUTICASONE PROP 0.05% 16 GM NASAL SPRAY NS SCH (09:56)
[2018-09-04 11:37] LABS: ANION GAP 8 MMOL/L (8-16); BLOOD UREA NITROGEN 10 mg/dL (7-18); CALCIUM 7.8 mg/dL (8.5-10.1); CHLORIDE 104 mmol/L (98-107); CO2 28 mmol/L (21-32); CREATININE 0.4 mg/dL (0.55-1.3); GLUCOSE,RANDOM 73 mg/dL (74-106); MAGNESIUM 1.8 mg/dL (1.8-2.4); POTASSIUM 3.7 mmol/L (3.5-5.1); SODIUM 140 mmol/L (136-145)
--- NOTE | 2018-09-04 12:31 | PN ---
Progress Note (short form) - Note Progress Note: s: no cp sob palps dizzy o: Vital Signs Period Temp Pulse Resp BP Sys/Fernández Pulse Ox Last 24 Hr 98.2 F 72 20 103/56 96 nad no jvd rrr s1s2 no mrg cta bl nl eff aaox3 no le e/c/c abd nt nd pos bd no jaundice diaphoresis Current Medications Generic Name Dose Route Start Last Admin Trade Name Freq PRN Reason Stop Dose Admin Acetaminophen 325 mg 09/01/18 22:00 09/04/18 06:04 Tylenol - PO 325 mg TID EUNICE Administration Albuterol Sulfate 1 amp 09/01/18 20:21 Ventolin 0.083% Nebulizer Soln - NEB Q6H PRN SHORT OF BREATH/WHEEZING Atorvastatin Calcium 20 mg 09/03/18 14:53 09/03/18 21:24 Lipitor - PO 20 mg HS EUNICE Administration Diltiazem HCl 120 mg 09/02/18 10:00 09/04/18 09:56 Cardizem Cd - PO 120 mg DAILY EUNICE Administration Dipyridamole/Aspirin 1 combo 09/03/18 22:00 09/04/18 09:56 Aggrenox - PO 1 combo BID EUNICE Administration Fluticasone Propionate 2 spray 09/02/18 10:00 09/04/18 09:56 Flonase - NS 2 sprays DAILY EUNICE Administration Magnesium Oxide 400 mg 09/03/18 22:15 09/04/18 09:56 Mag-Ox - PO 400 mg BID EUNICE Administration Montelukast Sodium 10 mg 09/01/18 22:00 09/03/18 21:24 Singulair - PO 10 mg HS ENUICE Administration Pantoprazole Sodium 40 mg 09/02/18 10:00 09/04/18 09:56 Protonix - PO 40 mg DAILY EUNICE Administration Phenytoin Sodium 100 mg 09/01/18 22:00 09/04/18 09:56 Dilantin - PO 100 mg BID EUNICE Administration Tiotropium [place] 2 puff 09/02/18 10:00 09/04/18 09:56 Spiriva Respimat IH 2 puff DAILY EUNICE Administration CBC, BMP 09/03/18 08:30 09/04/18 06:00 mibi 02/2013: no ischemia, nl lvef cath 2007: non obs cad echo 09/2013: nl lv/rv, mild mr, mild tr, mild pr echo 08/2018: nl lv/rv, mild tr carotids 08/2018: min dz, no sig stenosis ecg: sr, nl intervals, pvcs, no ischemic changes, old irbbb cxr: clear lungs a/p: 72 m hx copd, htn, hld here s/p fall. fall: -mechanical fall -pelvic fx seen on ct, ortho following htn: -stable on dilt hld: -cont statin cva: -head ct here showing small infarcts, old vs new -echo and carotids unremarkable -holter pending -neuro following -outpt event monitor to look for occult afib if inpt testing unremarkable -cont asa, statin, bp control
--- NOTE | 2018-09-04 14:29 | PN ---
Progress Note, Physician History of Present Illness: Pt w/o SOB, CP, palpitations, dizziness, weakness or sensory deficit in UE/ LE/ face. Pt with cough on and off Pt with pelvic/ hip pain, trying to get stronger so can go home. Pt w/o motor or sensory deficit in UE/ LE/ face. - Current Medication List Current Medications: Active Medications Acetaminophen (Tylenol -) 325 mg PO TID [facility] Last Admin: 09/04/18 06:04 Dose: 325 mg Albuterol Sulfate (Ventolin 0.083% Nebulizer Soln -) 1 amp NEB Q6H PRN PRN Reason: SHORT OF BREATH/WHEEZING Atorvastatin Calcium (Lipitor -) 20 mg PO HS [facility] Last Admin: 09/03/18 21:24 Dose: 20 mg Diltiazem HCl (Cardizem Cd -) 120 mg PO DAILY [facility] Last Admin: 09/04/18 09:56 Dose: 120 mg Dipyridamole/Aspirin (Aggrenox -) 1 combo PO BID [facility] Last Admin: 09/04/18 09:56 Dose: 1 combo Fluticasone Propionate (Flonase -) 2 spray NS DAILY [facility] Last Admin: 09/04/18 09:56 Dose: 2 sprays Magnesium Oxide (Mag-Ox -) 400 mg PO BID [facility] Last Admin: 09/04/18 09:56 Dose: 400 mg Montelukast Sodium (Singulair -) 10 mg PO HS [facility] Last Admin: 09/03/18 21:24 Dose: 10 mg Pantoprazole Sodium (Protonix -) 40 mg PO DAILY [facility] Last Admin: 09/04/18 09:56 Dose: 40 mg Phenytoin Sodium (Dilantin -) 100 mg PO BID [facility] Last Admin: 09/04/18 09:56 Dose: 100 mg Tiotropium [place] (Spiriva Respimat) 2 puff IH DAILY [facility] Last Admin: 09/04/18 09:56 Dose: 2 puff - Objective Vital Signs: Vital Signs Temperature 98.1 F 09/04/18 08:00 Pulse Rate 66 09/04/18 08:00 Respiratory Rate 20 09/04/18 08:00 Blood Pressure 116/61 09/04/18 08:00 O2 Sat by Pulse Oximetry (%) 96 09/04/18 08:00 Constitutional: Yes: No Distress, Calm Cardiovascular: Yes: Regular Rate and Rhythm, S1, S2 Respiratory: Yes: Regular, Rhonchi (minimum, scattered), Other (coarse BS) Gastrointestinal: Yes: Normal Bowel Sounds, Soft. No: Tenderness Edema: No Neurological: Yes: Alert, Oriented, Other (motor and sensory examination is symmetric in UE/ LE/ face) Labs: CBC, BMP 09/03/18 08:30 09/04/18 06:00 INR, PTT INR 1.20 (0.83-1.09) H 09/01/18 15:30 - ....Imaging Other: Report Reviewed (Carotid US, ECHO) Problem List - Problems (1) Pelvic fracture Code(s): S32.9XXA - FRACTURE OF UNSP PARTS OF LUMBOSACRAL SPINE AND PELVIS, INIT (2) CAD (coronary artery disease) Code(s): I25.10 - ATHSCL HEART DISEASE OF [place] CORONARY ARTERY W/O ANG PCTRS (3) COPD (chronic obstructive pulmonary disease) Code(s): J44.9 - CHRONIC OBSTRUCTIVE PULMONARY DISEASE, UNSPECIFIED (4) GERD (gastroesophageal reflux disease) Code(s): K21.9 - GASTRO-ESOPHAGEAL REFLUX DISEASE WITHOUT ESOPHAGITIS (5) Hypokalemia Code(s): E87.6 - HYPOKALEMIA (6) Seizure disorder Code(s): G40.909 - EPILEPSY, UNSP, NOT INTRACTABLE, WITHOUT STATUS EPILEPTICUS (7) Anemia Code(s): D64.9 - ANEMIA, UNSPECIFIED (8) Leukocytosis Code(s): D72.829 - ELEVATED WHITE BLOOD CELL COUNT, UNSPECIFIED (9) CVA (cerebral vascular accident) Code(s): I63.9 - CEREBRAL INFARCTION, UNSPECIFIED Assessment/Plan Ortho, Pulmonary, Cardio, Neuro consults are appreciated Pain control PT eval TO f/u Holter report Case was d/w pt's nurse.
[2018-09-04] MEDS ORDERED: FLU VACCINE QUAD 60 MCG/0.5 ML (MDV 18-19) IM ONE (16:28)
--- NOTE | 2018-09-04 19:42 | PN ---
Progress Note (short form) - Note Progress Note: DECREASED PAIN CALF SOFT AND NT NVI IMP: DOING WELL PLAN: OOB, PT DC PLANNING
[2018-09-04] MEDS: ATORVASTATIN CA 20 MG TABLET (FP) PO SCH (21:18)
[2018-09-04] MEDS: MONTELUKAST NA 10 MG TABLET PO SCH (21:18)
[2018-09-05] MEDS: ACETAMINOPHEN 325 MG TABLET (FP) PO SCH ×3 (05:38→21:34)
[2018-09-05] MEDS ORDERED: PT OWN MED DRAWER 7, Y5N ONE ×2 (09:44→21:50)
[2018-09-05] MEDS: MAGNESIUM OXIDE 400 MG TABLET (FP) PO SCH ×2 (09:52→21:34)
[2018-09-05] MEDS: PANTOPRAZOLE 40 MG TABLET (FP) PO SCH (09:52)
[2018-09-05] MEDS: FLUTICASONE PROP 0.05% 16 GM NASAL SPRAY NS SCH (09:53)
[2018-09-05] MEDS: ASPIRIN/DIPYRIDAMOLE 25 MG/200 MG CAPSULE (FP) PO SCH ×2 (09:53→21:52)
[2018-09-05] MEDS: PHENYTOIN NA EXTENDED 100 MG CAPSULE (FP) PO SCH ×2 (09:53→21:34)
[2018-09-05] MEDS: TIOTROPIUM BROMIDE 2.5 MCG (SPIRIVA) RESPIMAT INHALER IH SCH (09:54)
--- NOTE | 2018-09-05 11:05 | PN ---
Progress Note (short form) - Note Progress Note: s: no cp sob palps dizzy o: Vital Signs Period Temp Pulse Resp BP Sys/Fernández Pulse Ox Last 24 Hr 98.0 F-98.6 F 72-82 20-20 95-115/58-60 96 nad no jvd rrr s1s2 no mrg cta bl nl eff aaox3 no le e/c/c abd nt nd pos bd no jaundice diaphoresis Current Medications Generic Name Dose Route Start Last Admin Trade Name Freq PRN Reason Stop Dose Admin Acetaminophen 325 mg 09/01/18 22:00 09/05/18 05:38 Tylenol - PO 325 mg TID EUNICE Administration Albuterol Sulfate 1 amp 09/01/18 20:21 Ventolin 0.083% Nebulizer Soln - NEB Q6H PRN SHORT OF BREATH/WHEEZING Atorvastatin Calcium 20 mg 09/03/18 14:53 09/04/18 21:18 Lipitor - PO 20 mg HS EUNICE Administration Diltiazem HCl 120 mg 09/02/18 10:00 09/05/18 09:52 Cardizem Cd - PO 120 mg DAILY EUNICE Administration Dipyridamole/Aspirin 1 combo 09/03/18 22:00 09/05/18 09:53 Aggrenox - PO 1 combo BID EUNICE Administration Fluticasone Propionate 2 spray 09/02/18 10:00 09/05/18 09:53 Flonase - NS 2 sprays DAILY EUNICE Administration Magnesium Oxide 400 mg 09/03/18 22:15 09/05/18 09:52 Mag-Ox - PO 400 mg BID EUNICE Administration Montelukast Sodium 10 mg 09/01/18 22:00 09/04/18 21:18 Singulair - PO 10 mg HS EUNICE Administration Pantoprazole Sodium 40 mg 09/02/18 10:00 09/05/18 09:52 Protonix - PO 40 mg DAILY EUNICE Administration Phenytoin Sodium 100 mg 09/01/18 22:00 09/05/18 09:53 Dilantin - PO 100 mg BID EUNICE Administration Tiotropium [place] 2 puff 09/02/18 10:00 09/05/18 09:54 Spiriva Respimat IH 2 puff DAILY EUNICE Administration CBC, BMP 09/03/18 08:30 09/04/18 06:00 mibi 02/2013: no ischemia, nl lvef cath 2007: non obs cad echo 09/2013: nl lv/rv, mild mr, mild tr, mild pr echo 08/2018: nl lv/rv, mild tr carotids 08/2018: min dz, no sig stenosis ecg: sr, nl intervals, pvcs, no ischemic changes, old irbbb cxr: clear lungs a/p: 72 m hx copd, htn, hld here s/p fall. fall: -mechanical fall -pelvic fx seen on ct, ortho following htn: -stable on dilt hld: -cont statin cva: -head ct here showing small infarcts, old vs new -echo and carotids unremarkable -holter pending -neuro following -outpt event monitor to look for occult afib if inpt testing unremarkable -cont asa, statin, bp control
--- NOTE | 2018-09-05 11:56 | PN ---
Progress Note, Physician History of Present Illness: Pt w/o SOB, CP, palpitations, dizziness, weakness or sensory deficit in UE/ LE/ face. Pt with cough on and off Pt with pelvic/ hip pain, trying to get stronger so can go home. Pt w/o motor or sensory deficit in UE/ LE/ face (pt knows that Head CT scan shows possible new strokes). - Current Medication List Current Medications: Active Medications Acetaminophen (Tylenol -) 325 mg PO TID [facility] Last Admin: 09/05/18 05:38 Dose: 325 mg Albuterol Sulfate (Ventolin 0.083% Nebulizer Soln -) 1 amp NEB Q6H PRN PRN Reason: SHORT OF BREATH/WHEEZING Atorvastatin Calcium (Lipitor -) 20 mg PO HS [facility] Last Admin: 09/04/18 21:18 Dose: 20 mg Diltiazem HCl (Cardizem Cd -) 120 mg PO DAILY [facility] Last Admin: 09/05/18 09:52 Dose: 120 mg Dipyridamole/Aspirin (Aggrenox -) 1 combo PO BID [facility] Last Admin: 09/05/18 09:53 Dose: 1 combo Fluticasone Propionate (Flonase -) 2 spray NS DAILY [facility] Last Admin: 09/05/18 09:53 Dose: 2 sprays Magnesium Oxide (Mag-Ox -) 400 mg PO BID [facility] Last Admin: 09/05/18 09:52 Dose: 400 mg Montelukast Sodium (Singulair -) 10 mg PO HS [facility] Last Admin: 09/04/18 21:18 Dose: 10 mg Pantoprazole Sodium (Protonix -) 40 mg PO DAILY [facility] Last Admin: 09/05/18 09:52 Dose: 40 mg Phenytoin Sodium (Dilantin -) 100 mg PO BID [facility] Last Admin: 09/05/18 09:53 Dose: 100 mg Tiotropium [place] (Spiriva Respimat) 2 puff IH DAILY [facility] Last Admin: 09/05/18 09:54 Dose: 2 puff - Objective Vital Signs: Vital Signs Temperature 98.0 F 09/05/18 05:00 Pulse Rate 72 09/05/18 05:00 Respiratory Rate 20 09/04/18 18:00 Blood Pressure 108/58 L 09/05/18 05:00 O2 Sat by Pulse Oximetry (%) 96 09/04/18 22:00 Constitutional: Yes: No Distress, Calm Cardiovascular: Yes: Regular Rate and Rhythm, S1, S2, Other (holter momnitor was removed) Respiratory: Yes: Regular, CTA Bilaterally. No: Rales Gastrointestinal: Yes: Normal Bowel Sounds, Soft. No: Tenderness Edema: No Neurological: Yes: Alert, Oriented Labs: CBC, BMP 09/03/18 08:30 09/04/18 06:00 INR, PTT INR 1.20 (0.83-1.09) H 09/01/18 15:30 - ....Imaging Ultrasound: Report Reviewed Other: Report Reviewed (ECHO) Problem List - Problems (1) Pelvic fracture Code(s): S32.9XXA - FRACTURE OF UNSP PARTS OF LUMBOSACRAL SPINE AND PELVIS, INIT (2) CAD (coronary artery disease) Code(s): I25.10 - ATHSCL HEART DISEASE OF [place] CORONARY ARTERY W/O ANG PCTRS (3) COPD (chronic obstructive pulmonary disease) Code(s): J44.9 - CHRONIC OBSTRUCTIVE PULMONARY DISEASE, UNSPECIFIED (4) GERD (gastroesophageal reflux disease) Code(s): K21.9 - GASTRO-ESOPHAGEAL REFLUX DISEASE WITHOUT ESOPHAGITIS (5) Hypokalemia Code(s): E87.6 - HYPOKALEMIA (6) Seizure disorder Code(s): G40.909 - EPILEPSY, UNSP, NOT INTRACTABLE, WITHOUT STATUS EPILEPTICUS (7) Anemia Code(s): D64.9 - ANEMIA, UNSPECIFIED (8) Leukocytosis Code(s): D72.829 - ELEVATED WHITE BLOOD CELL COUNT, UNSPECIFIED (9) CVA (cerebral vascular accident) Code(s): I63.9 - CEREBRAL INFARCTION, UNSPECIFIED Assessment/Plan Ortho, Pulmonary, Cardio, Neuro consults are appreciated Pain control PT eval Echo and Carotid US w/o significant abnormalities to count for possible new CVA To f/u Holter report Case was d/w pt's nurse.
--- NOTE | 2018-09-05 12:54 | HOL ---
Hook-up date: 2018-09-03 14:47:00 Duration: 24:00:00 Test Indications: NEW SMALL STROKES Medications: 109330 QRS complexes 6210 Ventricular ectopics which represent 5 % of total QRS comp. 295 Supraventricular ectopics which represent <1 % of total QRS comp. * Paced QRS complexs which represent % of total QRS comp. * % of Time Classified as Noise VENTRICULAR ECTOPY 6199 Isolated 59 Bigeminal Cycles 5 Couplets 0 Runs 0 Beats in Runs * Beats LONGEST at * BPM at :: -- * Beats FASTEST at * BPM at :: -- SUPRAVENTRICULAR ECTOPY 266 Isolated 8 Couplets 2 Runs 13 Beats in Runs 9 Beats LONGEST at 167 BPM at 21:01:34 2018-09-03 9 Beats FASTEST at 167 BPM at 21:01:34 2018-09-03 HEART RATES 55 MIN at 01:58:32 2018-09-04 73 AVG 103 MAX at 11:12:46 2018-09-04 LONGEST RR 1.488 secs at 07:55:16 2018-09-04 SCANNED BY: THERESA 09/05/18 1. Baseline sinus rhythm with avg hr 73 and range 55-103. 2. No significant bradycardia/pause. 3. Frequent isolated PVCs. 4. Occasional PACs. Two brief atrial runs, longest 9 beats, likely PAT. 5. No vt, vf, afib, aflutter. 6. No diary submitted. Confirmed by NAN BRUCE, FELIX (2014) on 09/05/2018 12:53:18 PM Referred By: Silvia HARMAN Overread By: FELIX MONTANA MD
--- NOTE | 2018-09-05 13:03 | PN ---
Progress Note (short form) - Note Progress Note: PULMONARY APEARS COMFORTABLE IN BED/EATING LUNCH HAS RIGHT SIDED HIP PAIN UPON MOVEMENT VSS TEMPORAL WASTING/ ANICTERIC DIMINISHED BUT CLEAR LUNG SOUNDS S1S2 BS+ NO EDEMA LABS/MEDS/NOTES/IMAGES REVIEWED AWAITING PT (1) Right hip pain Code(s): M25.551 - PAIN IN RIGHT HIP (2) Back pain Code(s): M54.9 - DORSALGIA, UNSPECIFIED (3) COPD (chronic obstructive pulmonary disease) Code(s): J44.9 - CHRONIC OBSTRUCTIVE PULMONARY DISEASE, UNSPECIFIED (4) Cachexia Code(s): R64 - CACHEXIA (5) Cough Code(s): R05 - COUGH (6) DVT (deep venous thrombosis) Code(s): I82.409 - ACUTE EMBOLISM AND THOMBOS UNSP DEEP VN UNSP LOWER EXTREMITY (7) GERD (gastroesophageal reflux disease) Code(s): K21.9 - GASTRO-ESOPHAGEAL REFLUX DISEASE WITHOUT ESOPHAGITIS (8) HTN (hypertension) Code(s): I10 - ESSENTIAL (PRIMARY) HYPERTENSION (9) Hypercholesterolemia Code(s): E78.0 - PURE HYPERCHOLESTEROLEMIA * DO NOT USE * (10) Pulmonary hypertension Code(s): I27.2 - OTHER SECONDARY PULMONARY HYPERTENSION * DO NOT USE * (11) Seasonal allergies Code(s): J30.2 - OTHER SEASONAL ALLERGIC RHINITIS (12) Seizure disorder Code(s): G40.909 - EPILEPSY, UNSP, NOT INTRACTABLE, WITHOUT STATUS EPILEPTICUS Assessment/Plan Continue daily Spiriva Monitor off ABX BD TX PRN O2 as needed No smoking counseled PT Ortho follow up Fall precautions Nutritional support Will follow likely snf candidate upon discharge Alejo CLANCY MD
[2018-09-05] MEDS: MONTELUKAST NA 10 MG TABLET PO SCH (21:34)
[2018-09-05] MEDS: ATORVASTATIN CA 20 MG TABLET (FP) PO SCH (21:34)
[2018-09-06] MEDS: ACETAMINOPHEN 325 MG TABLET (FP) PO SCH ×2 (05:35→14:56)
[2018-09-06 07:20] LABS: HEMATOCRIT 31.9 % (35.4-49); HEMOGLOBIN 10.1 GM/dL (11.7-16.9); MCH 25.3 pg (25.7-33.7); MCHC 31.8 g/dl (32.0-35.9); MEAN CELL VOLUME 79.6 fl (80-96); MEAN PLT VOLUME 9.9 fl (7.5-11.1); PLATELET COUNT 159 K/MM3 (134-434); RDW 14.8 % (11.9-15.9); WHITE BLOOD COUNT 10.2 K/mm3 (4.0-10.0)
--- NOTE | 2018-09-06 08:41 | PN ---
Progress Note (short form) - Note Progress Note: Ortho Pt seen and examined s/p right superior pubi rami fx Selected Entries 09/06/18 06:05 Temperature 98.2 F Pulse Rate 95 H Respiratory 20 Rate Blood Pressure 100/60 Laboratory Tests 09/06/18 06:45 WBC 10.2 H Hgb 10.1 L Hct 31.9 L Plt Count 159 decr pain, incr rom, nvi able to ambulate in PT a/p PT wbat pain control ok to d/c from ortho pov d/w Dr. Lewis
[2018-09-06 08:54] LABS: ANION GAP 6 MMOL/L (8-16); BLOOD UREA NITROGEN 15 mg/dL (7-18); CALCIUM 8.1 mg/dL (8.5-10.1); CHLORIDE 103 mmol/L (98-107); CO2 28 mmol/L (21-32); CREATININE 0.4 mg/dL (0.55-1.3); GLUCOSE,RANDOM 79 mg/dL (74-106); MAGNESIUM 1.9 mg/dL (1.8-2.4); POTASSIUM 4.3 mmol/L (3.5-5.1); SODIUM 136 mmol/L (136-145)
--- NOTE | 2018-09-06 09:02 | PN ---
Progress Note (short form) - Note Progress Note: Neurology History of Present Illness 72 y.o. M w/ PMHx. of DVT, COPD (not on home O2?), HTN, HLD, CAD(s/p PCI stent) , GERD, seizure disorder presents after a fall on the morning of 08/30/18. Pt. stated that he was trying to lift a wooden ladder from his closet. After the ladder hit the right side of his head the patient reportedly fell to the ground and hit the right side of his body. He denies loss of consciousness and denies any prodromal symptoms before the fall. Pt.'s nephew who he lives with at home came immediately to his assistance and carried him to his room. Pt. stated he did not come in then because he did not want to spend [place] Sadie or Aung in the hospital. Pt. normally walks around at home with his walker or cane. Pt. uses a motorized scooter to ambulate outside of his house. he was admitted for further evaluation and noncontrast head CT showed ?left cerebellar infarcts, small in size, uncertain age. Discussed this with the patient and he denies any symptoms and specifically no dizziness or difficulty with coordination. In fact, he reports being completely asymptomatic and I offered MRI brain to further evaluate but he did not want to pursue further imaging. ASA was adjusted to Aggrenox. Statin increased to 20mg. Carotids without hemodynamically significant stenosis. Echo with normal systolic function, EF 50- 55%. No new events over weekend. Neurologically stable otherwise. Allergies/Adverse Reactions: Allergies Allergy/AdvReac Type Severity Reaction Status Date / Time No Known Drug Allergies Allergy Verified 09/01/18 13:31 Active Medications Acetaminophen (Tylenol -) 325 mg PO TID [facility] Last Admin: 09/06/18 05:35 Dose: 325 mg Albuterol Sulfate (Ventolin 0.083% Nebulizer Soln -) 1 amp NEB Q6H PRN PRN Reason: SHORT OF BREATH/WHEEZING Atorvastatin Calcium (Lipitor -) 20 mg PO HS [facility] Last Admin: 09/05/18 21:34 Dose: 20 mg Diltiazem HCl (Cardizem Cd -) 120 mg PO DAILY [facility] Last Admin: 09/05/18 09:52 Dose: 120 mg Dipyridamole/Aspirin (Aggrenox -) 1 combo PO BID [facility] Last Admin: 09/05/18 21:52 Dose: 1 combo Fluticasone Propionate (Flonase -) 2 spray NS DAILY [facility] Last Admin: 09/05/18 09:53 Dose: 2 sprays Magnesium Oxide (Mag-Ox -) 400 mg PO BID [facility] Last Admin: 09/05/18 21:34 Dose: 400 mg Montelukast Sodium (Singulair -) 10 mg PO HS [facility] Last Admin: 09/05/18 21:34 Dose: 10 mg Pantoprazole Sodium (Protonix -) 40 mg PO DAILY [facility] Last Admin: 09/05/18 09:52 Dose: 40 mg Phenytoin Sodium (Dilantin -) 100 mg PO BID [facility] Last Admin: 09/05/18 21:34 Dose: 100 mg Tiotropium [place] (Spiriva Respimat) 2 puff IH DAILY [facility] Last Admin: 09/05/18 09:54 Dose: 2 puff *Physical Exam - Vital Signs Vital Signs Period Temp Pulse Resp BP Sys/Fernández Pulse Ox Last 24 Hr 97.6 F-98.2 F 75-95 20-20 100-111/54-60 97 - Physical Exam General Appearance: Yes: Disheveled, Mild Distress, Cachetic, Thin HEENT: positive: Normal Voice, Pharynx Normal, Excessive drooling. negative: Symmetrical Neck: positive: Trachea midline. negative: Carotid bruit Respiratory/Chest: positive: Lungs Clear, Normal Breath Sounds. negative: Respiratory Distress, Accessory Muscle Use, Crackles, Wheezing Cardiovascular: positive: Regular Rhythm, Regular Rate, S1, S2. negative: Edema , JVD, Murmur Vascular Pulses: Dorsalis-Pedis (R): 2+, Doralis-Pedis (L): 2+ Gastrointestinal/Abdominal: positive: Normal Bowel Sounds, Flat, Soft Musculoskeletal: positive: Decreased Range of Motion (Pt. refuses to move right leg). negative: CVA Tenderness (R) Extremity: negative: Normal Range of Motion, Pelvis Stable, Coldness, Calf Tenderness, Erythema Integumentary: positive: Dry (xerotic, flaky, poor skin turgor ). negative: Normal Color Neurologic: awake, alert, limited effort, moves all extremities equally, sensory intact, finger to nose normal CBCD WBC 10.2 K/mm3 (4.0-10.0) H 1231/18 06:45 RBC 4.00 M/mm3 (4.00-5.60) 09/06/18 06:45 Hgb 10.1 GM/dL (11.7-16.9) L 09/06/18 06:45 Hct 31.9 % (35.4-49) L 09/06/18 06:45 MCV 79.6 fl (80-96) L 09/06/18 06:45 MCHC 31.8 g/dl (32.0-35.9) L 09/06/18 06:45 RDW 14.8 % (11.9-15.9) 09/06/18 06:45 Plt Count 159 K/MM3 (134-434) 09/06/18 06:45 MPV 9.9 fl (7.5-11.1) 09/06/18 06:45 CMP Sodium 136 mmol/L (136-145) 09/06/18 06:45 Potassium 4.3 mmol/L (3.5-5.1) 09/06/18 06:45 Chloride 103 mmol/L (98-107) 09/06/18 06:45 Carbon Dioxide 28 mmol/L (21-32) 09/06/18 06:45 Anion Gap 6 MMOL/L (8-16) L 09/06/18 06:45 BUN 15 mg/dL (7-18) 09/06/18 06:45 Creatinine 0.4 mg/dL (0.55-1.3) L 09/06/18 06:45 Creat Clearance w eGFR > 60 (>60) 09/06/18 06:45 Random Glucose 79 mg/dL (74-106) 09/06/18 06:45 Calcium 8.1 mg/dL (8.5-10.1) L 09/06/18 06:45 Total Bilirubin 0.7 mg/dL (0.2-1) 09/01/18 15:16 AST 15 U/L (15-37) 09/01/18 15:16 ALT 20 U/L (13-61) 09/01/18 15:16 Alkaline Phosphatase 175 U/L (45-117) H 09/01/18 15:16 Total Protein 7.0 g/dl (6.4-8.2) 09/01/18 15:16 Albumin 3.6 g/dl (3.4-5.0) 09/01/18 15:16 CARDIAC ENZYMES Creatine Kinase Cancelled 09/01/18 15:30 Troponin I 0.02 ng/ml (0.00-0.05) 09/01/18 17:20 Plan: 72 y.o. M w/ PMHx. of DVT, COPD (not on home O2?), HTN, HLD, CAD(s/p PCI stent) , GERD, seizure disorder presents after a fall on the morning of 08/30/18. Pt. stated that he was trying to lift a wooden ladder from his closet. He was admitted for further evaluation and noncontrast head CT showed ?left cerebellar infarcts, small in size, uncertain age. Discussed this with the patient and he denies any symptoms and specifically no dizziness or difficulty with coordination. Continue Dilantin for seizure prevention for now, not witnessed to have seizure episode. Remains asymptomatic and I offered MRI brain to further evaluate but he did not want to pursue further imaging. Treated as CVA. Carotids, Echo reviewed and discussed. ASA adjusted to Aggrenox, statin increased with goal LDL less than 70. Monitor blood pressure, maintain less than 140/90 for now, <130/80 as outpatient. Fall precautions recommended. Physical therapy as tolerated, also with hip discomfort. Fall precautions, DVT ppx.
[2018-09-06] MEDS ORDERED: PT OWN MED DRAWER 7, Y5N ONE (09:30)
[2018-09-06] MEDS: ASPIRIN/DIPYRIDAMOLE 25 MG/200 MG CAPSULE (FP) PO SCH (09:32)
[2018-09-06] MEDS: PHENYTOIN NA EXTENDED 100 MG CAPSULE (FP) PO SCH (09:32)
[2018-09-06] MEDS: FLUTICASONE PROP 0.05% 16 GM NASAL SPRAY NS SCH (09:33)
[2018-09-06] MEDS: TIOTROPIUM BROMIDE 2.5 MCG (SPIRIVA) RESPIMAT INHALER IH SCH (09:33)
[2018-09-06] MEDS: PANTOPRAZOLE 40 MG TABLET (FP) PO SCH (09:33)
[2018-09-06] MEDS: MAGNESIUM OXIDE 400 MG TABLET (FP) PO SCH (09:33)
--- NOTE | 2018-09-06 09:51 | PN ---
Progress Note, Physician History of Present Illness: Pt w/o SOB, CP, palpitations, dizziness, weakness or sensory deficit in UE/ LE/ face. Pt's cough is improved Pt with pelvic/ hip pain. Pt w/o motor or sensory deficit in UE/ LE/ face (pt knows that Head CT scan shows possible new strokes). - Current Medication List Current Medications: Active Medications Acetaminophen (Tylenol -) 325 mg PO TID [facility] Last Admin: 09/06/18 05:35 Dose: 325 mg Albuterol Sulfate (Ventolin 0.083% Nebulizer Soln -) 1 amp NEB Q6H PRN PRN Reason: SHORT OF BREATH/WHEEZING Atorvastatin Calcium (Lipitor -) 20 mg PO HS [facility] Last Admin: 09/05/18 21:34 Dose: 20 mg Diltiazem HCl (Cardizem Cd -) 120 mg PO DAILY [facility] Last Admin: 09/06/18 09:32 Dose: 120 mg Dipyridamole/Aspirin (Aggrenox -) 1 combo PO BID [facility] Last Admin: 09/06/18 09:32 Dose: 1 combo Fluticasone Propionate (Flonase -) 2 spray NS DAILY [facility] Last Admin: 09/06/18 09:33 Dose: 2 sprays Magnesium Oxide (Mag-Ox -) 400 mg PO BID [facility] Last Admin: 09/06/18 09:33 Dose: 400 mg Montelukast Sodium (Singulair -) 10 mg PO HS [facility] Last Admin: 09/05/18 21:34 Dose: 10 mg Pantoprazole Sodium (Protonix -) 40 mg PO DAILY [facility] Last Admin: 09/06/18 09:33 Dose: 40 mg Phenytoin Sodium (Dilantin -) 100 mg PO BID [facility] Last Admin: 09/06/18 09:32 Dose: 100 mg Tiotropium [place] (Spiriva Respimat) 2 puff IH DAILY [facility] Last Admin: 09/06/18 09:33 Dose: 2 puff - Objective Vital Signs: Vital Signs Temperature 98.2 F 09/06/18 06:05 Pulse Rate 95 H 09/06/18 06:05 Respiratory Rate 20 09/06/18 06:05 Blood Pressure 100/60 09/06/18 06:05 O2 Sat by Pulse Oximetry (%) 97 09/05/18 21:00 Constitutional: Yes: No Distress, Calm Cardiovascular: Yes: Regular Rate and Rhythm, S1, S2 Respiratory: Yes: Regular, CTA Bilaterally. No: Rhonchi Gastrointestinal: Yes: Normal Bowel Sounds, Soft. No: Tenderness Edema: No Neurological: Yes: Alert, Oriented Labs: CBC, BMP 09/06/18 06:45 09/06/18 06:45 INR, PTT INR 1.20 (0.83-1.09) H 09/01/18 15:30 Problem List - Problems (1) Pelvic fracture Code(s): S32.9XXA - FRACTURE OF UNSP PARTS OF LUMBOSACRAL SPINE AND PELVIS, INIT (2) CAD (coronary artery disease) Code(s): I25.10 - ATHSCL HEART DISEASE OF [place] CORONARY ARTERY W/O ANG PCTRS (3) COPD (chronic obstructive pulmonary disease) Code(s): J44.9 - CHRONIC OBSTRUCTIVE PULMONARY DISEASE, UNSPECIFIED (4) GERD (gastroesophageal reflux disease) Code(s): K21.9 - GASTRO-ESOPHAGEAL REFLUX DISEASE WITHOUT ESOPHAGITIS (5) Hypokalemia Code(s): E87.6 - HYPOKALEMIA (6) Seizure disorder Code(s): G40.909 - EPILEPSY, UNSP, NOT INTRACTABLE, WITHOUT STATUS EPILEPTICUS (7) Anemia Code(s): D64.9 - ANEMIA, UNSPECIFIED (8) Leukocytosis Code(s): D72.829 - ELEVATED WHITE BLOOD CELL COUNT, UNSPECIFIED (9) CVA (cerebral vascular accident) Code(s): I63.9 - CEREBRAL INFARCTION, UNSPECIFIED Assessment/Plan Ortho, Pulmonary, Cardio, Neuro consults are appreciated Pain control PT Echo and Carotid US w/o significant abnormalities to count for possible new CVA To f/u Holter report Case was d/w pt's nurse. Pt agrees to go to Rehab if not able to manage walking on his own (and go home).
--- NOTE | 2018-09-06 14:24 | PN ---
Progress Note, Physician History of Present Illness: PULMONARY ALERT,NO DISTRESS,C/O HIP PAIN - Current Medication List Current Medications: Active Medications Acetaminophen (Tylenol -) 325 mg PO TID [facility] Last Admin: 09/06/18 05:35 Dose: 325 mg Albuterol Sulfate (Ventolin 0.083% Nebulizer Soln -) 1 amp NEB Q6H PRN PRN Reason: SHORT OF BREATH/WHEEZING Atorvastatin Calcium (Lipitor -) 20 mg PO HS [facility] Last Admin: 09/05/18 21:34 Dose: 20 mg Diltiazem HCl (Cardizem Cd -) 120 mg PO DAILY [facility] Last Admin: 09/06/18 09:32 Dose: 120 mg Dipyridamole/Aspirin (Aggrenox -) 1 combo PO BID [facility] Last Admin: 09/06/18 09:32 Dose: 1 combo Fluticasone Propionate (Flonase -) 2 spray NS DAILY [facility] Last Admin: 09/06/18 09:33 Dose: 2 sprays Magnesium Oxide (Mag-Ox -) 400 mg PO BID [facility] Last Admin: 09/06/18 09:33 Dose: 400 mg Montelukast Sodium (Singulair -) 10 mg PO HS [facility] Last Admin: 09/05/18 21:34 Dose: 10 mg Pantoprazole Sodium (Protonix -) 40 mg PO DAILY [facility] Last Admin: 09/06/18 09:33 Dose: 40 mg Phenytoin Sodium (Dilantin -) 100 mg PO BID [facility] Last Admin: 09/06/18 09:32 Dose: 100 mg Tiotropium [place] (Spiriva Respimat) 2 puff IH DAILY [facility] Last Admin: 09/06/18 09:33 Dose: 2 puff - Objective Vital Signs: Vital Signs Temperature 98.2 F 09/06/18 06:05 Pulse Rate 95 H 09/06/18 06:05 Respiratory Rate 20 09/06/18 06:05 Blood Pressure 100/60 09/06/18 06:05 O2 Sat by Pulse Oximetry (%) 97 09/05/18 21:00 Constitutional: Yes: Calm, Cachectic Eyes: Yes: WNL HENT: Yes: WNL Neck: Yes: WNL Cardiovascular: Yes: Regular Rate and Rhythm, S1 Respiratory: Yes: Diminished Gastrointestinal: Yes: Normal Bowel Sounds, Soft Extremities: Yes: WNL Edema: No Labs: CBC, BMP 09/06/18 06:45 09/06/18 06:45 INR, PTT INR 1.20 (0.83-1.09) H 09/01/18 15:30 Assessment/Plan 1) Right hip pain Code(s): M25.551 - PAIN IN RIGHT HIP (2) Back pain Code(s): M54.9 - DORSALGIA, UNSPECIFIED (3) COPD (chronic obstructive pulmonary disease) Code(s): J44.9 - CHRONIC OBSTRUCTIVE PULMONARY DISEASE, UNSPECIFIED (4) Cachexia Code(s): R64 - CACHEXIA (5) Cough Code(s): R05 - COUGH (6) DVT (deep venous thrombosis) Code(s): I82.409 - ACUTE EMBOLISM AND THOMBOS UNSP DEEP VN UNSP LOWER EXTREMITY (7) GERD (gastroesophageal reflux disease) Code(s): K21.9 - GASTRO-ESOPHAGEAL REFLUX DISEASE WITHOUT ESOPHAGITIS (8) HTN (hypertension) Code(s): I10 - ESSENTIAL (PRIMARY) HYPERTENSION (9) Hypercholesterolemia Code(s): E78.0 - PURE HYPERCHOLESTEROLEMIA * DO NOT USE * (10) Pulmonary hypertension Code(s): I27.2 - OTHER SECONDARY PULMONARY HYPERTENSION * DO NOT USE * (11) Seasonal allergies Code(s): J30.2 - OTHER SEASONAL ALLERGIC RHINITIS (12) Seizure disorder Code(s): G40.909 - EPILEPSY, UNSP, NOT INTRACTABLE, WITHOUT STATUS EPILEPTICUS Assessment/Plan Spiriva BD TX PRN O2 as needed No smoking counseled PT Fall precautions Nutritional support DR LOPEZ
--- NOTE | 2018-09-06 14:55 | DS ---
Physical Examination Vital Signs: Vital Signs Temperature 98.2 F 09/06/18 06:05 Pulse Rate 95 H 09/06/18 06:05 Respiratory Rate 20 09/06/18 06:05 Blood Pressure 100/60 09/06/18 06:05 O2 Sat by Pulse Oximetry (%) 97 09/05/18 21:00 Findings/Remarks: See today Progress note for ROS, PE, Plan Labs: CBC, BMP 09/06/18 06:45 09/06/18 06:45 Discharge Summary Reason For Visit: PAIN OF RIGHT HIP; FALL Current Active Problems Anemia (Acute) CVA (cerebral vascular accident) (Acute) Leukocytosis (Acute) Pelvic fracture (Acute) Right hip pain (Acute) Hospital Course: Pt came to ER with pelvic pain after fall at home. Pt was noticed to have pelvic fracture. Pt was seen by Ortho (Dr. Lewis) and Pulmonary (Dr. Mo). Pt with impaired gait; pt to go to Rehab. Condition: Improved - Instructions Diet, Activity, Other Instructions: DIET: Low salt, Low Cholesterol Disposition: ASSISTED FACILITY - Home Medications Comprehensive Discharge Medication List: Ambulatory Orders
[2018-09-06 15:01] VITALS: BP 102/56; PULSE 79; TEMP 98.3
--- NOTE | 2018-09-06 15:22 | PN ---
Progress Note (short form) - Note Progress Note: s: no cp sob palps dizzy o: Vital Signs Period Temp Pulse Resp BP Sys/Fernández Pulse Ox Last 24 Hr 98.2 F-98.3 F 75-95 20-20 100-102/54-60 97 nad no jvd rrr s1s2 no mrg cta bl nl eff aaox3 no le e/c/c abd nt nd pos bd no jaundice diaphoresis Current Medications Generic Name Dose Route Start Last Admin Trade Name Freq PRN Reason Stop Dose Admin Acetaminophen 325 mg 09/01/18 22:00 09/06/18 14:56 Tylenol - PO 325 mg TID EUNICE Administration Albuterol Sulfate 1 amp 09/01/18 20:21 Ventolin 0.083% Nebulizer Soln - NEB Q6H PRN SHORT OF BREATH/WHEEZING Atorvastatin Calcium 20 mg 09/03/18 14:53 09/05/18 21:34 Lipitor - PO 20 mg HS EUNICE Administration Diltiazem HCl 120 mg 09/02/18 10:00 09/06/18 09:32 Cardizem Cd - PO 120 mg DAILY [facility] Administration Dipyridamole/Aspirin 1 combo 09/03/18 22:00 09/06/18 09:32 Aggrenox - PO 1 combo BID [facility] Administration Fluticasone Propionate 2 spray 09/02/18 10:00 09/06/18 09:33 Flonase - NS 2 sprays DAILY [facility] Administration Magnesium Oxide 400 mg 09/03/18 22:15 09/06/18 09:33 Mag-Ox - PO 400 mg BID [facility] Administration Montelukast Sodium 10 mg 09/01/18 22:00 09/05/18 21:34 Singulair - PO 10 mg HS [facility] Administration Pantoprazole Sodium 40 mg 09/02/18 10:00 09/06/18 09:33 Protonix - PO 40 mg DAILY [facility] Administration Phenytoin Sodium 100 mg 09/01/18 22:00 09/06/18 09:32 Dilantin - PO 100 mg BID [facility] Administration Tiotropium [place] 2 puff 09/02/18 10:00 09/06/18 09:33 Spiriva Respimat IH 2 puff DAILY [facility] Administration CBC, BMP 09/06/18 06:45 09/06/18 06:45 mibi 02/2013: no ischemia, nl lvef cath 2007: non obs cad echo 09/2013: nl lv/rv, mild mr, mild tr, mild pr echo 08/2018: nl lv/rv, mild tr carotids 08/2018: min dz, no sig stenosis ecg: sr, nl intervals, pvcs, no ischemic changes, old irbbb cxr: clear lungs holter 08/2018: freq pvcs, occ pacs, brief pat 9 beats, no afib/aflutter a/p: 72 m hx copd, htn, hld here s/p fall. fall: -mechanical fall -pelvic fx seen on ct, ortho following htn: -stable on dilt hld: -cont statin cva: -head ct here showing small infarcts, old vs new -echo and carotids unremarkable -holter unremarkable -neuro following -outpt event monitor to look for occult afib -cont asa, statin, bp control cardiac mcintosh stable for dc
== END 2018-09-06 19:49 | DRG 535 ==
LOC: JER 13:24 → JERBED 17:45 → J6S 21:49
PROVIDERS: ADMIT Specialist; ATTEND Specialist
DX: S32.591A Other specified fracture of right pubis, initial encounter for closed fracture (principal); E43 Unspecified severe protein-calorie malnutrition; Z68.1 Body mass index [BMI] 19.9 or less, adult; R64 Cachexia; M25.551 Pain in right hip; D72.829 Elevated white blood cell count, unspecified; E87.6 Hypokalemia; I10 Essential (primary) hypertension; E78.5 Hyperlipidemia, unspecified; D64.9 Anemia, unspecified; K21.9 Gastro-esophageal reflux disease without esophagitis; I27.20 Pulmonary hypertension, unspecified; I25.10 Atherosclerotic heart disease of native coronary artery without angina pectoris; Z98.61 Coronary angioplasty status; W19.XXXA Unspecified fall, initial encounter; Y93.9 Activity, unspecified; Y92.008 Other place in unspecified non-institutional (private) residence as the place of occurrence of the external cause; Y99.9 Unspecified external cause status; J44.9 Chronic obstructive pulmonary disease, unspecified
CPT/HCPCS: 36415; 70450-TC; 71045-TC-FY; 72125-TC; 72192-TC; 73523-TC-FY; 80048; 80053; 80061; 81003; 83721; 83735; 83880; 84484; 85025; 85027; 85610; 85651; 85730; 86850; 86900; 86901; 87086; 90688; 93005; 93010; 93225; 93226; 93306-TC; 93880-TC; 94640; 97116-GP; 97161-GP; 99285-25; G0008; J0131

== ENCOUNTER 2018-10-18 13:09 | Inpatient (IN) | payer OTHER ==
--- NOTE | 2018-10-18 14:00 | PDOC ---
History of Present Illness - General Chief Complaint: Shortness of Breath Stated Complaint: DIFFICULTY BREATHING - History of Present Illness Initial Comments: 10/18/18 14:01 72 year old man coming from [facility] with a significant past medical history of DVT , COPD (no home O2), HTN, HLD, seizure disorder, and GERD who presents with 1 month of shortness of breath and coughing up white phlegm for 1 week. The patient denies fever, chest pain, coughing blood, n/v/d/c, abdominal pain. He reports that he gets a breathing treatment every 6 hours but has not gotten the treatments as regularly while in [facility]. The patient was in [facility] since September 2018 after a R hip fracture. Denies prior intubation or prior bipap Meds: furosemide 40, tamiflu Pulm: Dr. Mo PCP: Leeanna Past History - Past Medical History Allergies/Adverse Reactions: Allergies Allergy/AdvReac Type Severity Reaction Status Date / Time No Known Drug Allergies Allergy Verified 09/01/18 13:31 Home Medications: Ambulatory Orders Esomeprazole Mag Trihydrate [Nexium] 40 mg PO DAILY 06/11/14 Phenytoin Na Extended [Dilantin -] 100 mg PO BID 06/11/14 Tiotropium [place] [Spiriva] 1 inh PO DAILY 06/11/14 Diltiazem HCl [Dilacor Xr] 120 mg PO DAILY #120 cap.er.deg 06/15/14 Montelukast Na [Singulair -] 10 mg PO HS #90 tablet 06/15/14 Simvastatin [Zocor -] 20 mg PO HS #90 06/15/14 Levalbuterol Tartrate [Xopenex Hfa] 45 mcg IH BID 02/04/16 Fluticasone Prop 0.05% Nasal [Flonase -] 2 spray NS DAILY #1 spray MDD 2 Albuterol 0.083% Nebulizer [place] [Ventolin 0.083% Nebulizer Soln -] 1 amp NEB Q6H PRN amp 09/06/18 Aspirin/Dipyridamole [Aggrenox -] 1 combo PO BID capsule 09/06/18 Magnesium Oxide [Mag-Ox -] 400 mg PO BID tablet 09/06/18 Acetaminophen [Tylenol .Regular Strength -] 650 mg PO Q8H 10/18/18 Oseltamivir Phosphate [Tamiflu] 75 mg PO DAILY 10/18/18 Anemia: No Cardiac Disorders: Yes (CAD s/p PCI stent) COPD: Yes DVT: No Dialysis: No GI Disorders: Yes (GERD) HTN: Yes Hypercholesterolemia: Yes Kidney Stones: No Seizures: Yes Other medical history: DNR/DNI - Surgical History Orthopedic Surgery: Yes (rt total hip) - Immunization History Immunization Up to Date: Yes - Suicide/Smoking/Psychosocial Hx Smoking Status: No Smoking History: Never smoked Have you smoked in the past 12 months: No Number of Cigarettes Smoked Daily: 0 If you are a former smoker, when did you quit?: 14 years Information on smoking cessation initiated: No 'Breaking Loose' booklet given: 02/04/16 Hx Alcohol Use: No Drug/Substance Use Hx: No Substance Use Type: None Hx Substance Use Treatment: No *Physical Exam - Vital Signs Last Vital Signs Temp Pulse Resp BP Pulse Ox 97.6 F 80 16 120/68 100 10/18/18 13:10 10/18/18 13:10 10/18/18 13:10 10/18/18 13:10 10/18/18 13:10 - Physical Exam Comments: 10/18/18 14:37 cachetic man coughing clear phlegm expiratory wheeze R > L lung base decreased breath sounds requiring 2L NC to sat above 95 + accessory muscle use Moderate Sedation - Procedure Monitoring Vital Signs: Procedure Monitoring Vital Signs Temperature 97.6 F 10/18/18 13:10 Pulse Rate 80 10/18/18 13:10 Respiratory Rate 16 10/18/18 13:10 Blood Pressure 120/68 10/18/18 13:10 O2 Sat by Pulse Oximetry (%) 100 10/18/18 13:10 ED Treatment Course - LABORATORY CBC & Chemistry Diagram: 10/18/18 14:29 10/18/18 14:29 Medical Decision Making - Medical Decision Making 10/18/18 14:35 72 year old man coming from [facility] with a significant past medical history of DVT , COPD (no home O2), HTN, HLD, seizure disorder, and GERD who presents with shortness of breath and coughing up white phlegm for 1 week. The patient denies fever, chest pain, coughing blood, n/v/d/c, abdominal pain. He reports that he gets a breathing treatment every 6 hours but has not gotten the treatments as regularly while in [facility]. The patient was in [facility] since September 2018 after a R hip fracture. ED Course: consider copd exacerbation vs pna vs PE vs CHF vs ACS cbc, cmp, bnp, cardiac profile, ddimer 10/18/18 14:38 Will treat w/ douneb treatment, mg, solumedrol, azithro reassess, bipap if still acutely short of breath *DC/Admit/Observation/Transfer Diagnosis at time of Disposition: COPD exacerbation - Discharge Dispostion Condition at time of disposition: Fair Decision to Admit order: Yes - Referrals - Patient Instructions - Post Discharge Activity
[2018-10-18] MEDS ORDERED: methylPREDNISolone NA SUCC 125 MG/2 ML VIAL IVPUSH ONE (14:11)
[2018-10-18] MEDS ORDERED: ALBUTEROL SO4 2.5/IPRATROPIUM 0.5 INH SOL 3 ML VIAL.NEB. NEB ONE ×5 (14:11→18:55)
[2018-10-18] MEDS ORDERED: MAGNESIUM SULF 50% (8.12 MEQ/2 ML-1 GM VIAL) IVPB ONE (14:12)
[2018-10-18] MEDS ORDERED: MAGNESIUM 1GM/D5W - 2 GM/200 ML IVPB IVPB ONE (14:21)
[2018-10-18] MEDS ORDERED: methylPREDNISolone NA SUCC 125 MG/2 ML VIAL ONE (14:21)
[2018-10-18] MEDS ORDERED: ALBUTEROL SO4 0.083% IH SOL 2.5 MG/3 ML VIAL.NEB. NEB ONE (14:22)
[2018-10-18] MEDS ORDERED: IPRATROPIUM BR 0.02% 0.5 MG/2.5 ML VIAL.NEB. NEB ONE (14:22)
[2018-10-18] MEDS ORDERED: AZITHROMYCIN IVPB 500 MG in DEXTROSE 5%-WATER - 250 ML IVPB ONE (14:33)
--- NOTE | 2018-10-18 14:51 | PDOC ---
Attending Attestation - Resident Resident Name: Alyson Rico - ED Attending Attestation I have performed the following: I have examined & evaluated the patient, The case was reviewed & discussed with the resident, I agree w/resident's findings & plan, Exceptions are as noted - HPI HPI: 10/18/18 14:42 The patient is a 72 year old male with a PMH of DVT, COPD (not on home O2), HTN , HLD, seizure disorder, GERD, right hip repair in September 2018 who presents to the ER sent in from [facility] for shortness of breath and cough. Patient states his cough is productive of clear phelgm. Pt states that his symptoms have been going on for a month but progressively worsening. He states the nebulizers at the [place] help but only temporarily. Pt denies F/C. States that this feels like his COPD. He is unable to speak in full sentences here in the ER. Patient is satting at 95% with 2L of nasal O2. Patient denies chest pain, fevers, chills, nausea, vomiting, diarrhea, constipations or urinary symptoms. Allergies: NKA Past surgical history: None reported. Social history: No reported alcohol, drug or cigarette use. - Physicial Exam PE: 10/18/18 14:51 GENERAL: Awake, alert, and fully oriented, in moderate respiratory distress. HEAD: No signs of trauma EYES: PERRLA, EOMI, sclera anicteric, conjunctiva clear ENT: Auricles normal inspection, hearing grossly normal, nares patent, oropharynx clear without exudates. Moist mucosa NECK: Nontender, no stepoffs, Normal ROM, supple, no lymphadenopathy, JVD, or masses LUNGS: + tachypneic, + poor aeration bilaterally HEART: Regular rate and rhythm, normal S1 and S2, no murmurs, rubs or gallops ABDOMEN: Soft, nontender, normoactive bowel sounds. No guarding, no rebound. No masses EXTREMITIES: Normal range of motion, no edema. No clubbing or cyanosis. No cords, erythema, or tenderness NEUROLOGICAL: Cranial nerves II through XII intact. 5/5 strength and sensation in all extremities, Normal speech, normal gait, normal cerebellar function SKIN: Warm, Dry, normal turgor, no rashes or lesions noted. - Medical Decision Making 10/18/18 14:52 72 M with SOB and cough x 1 month. In ED, pt mildly hypoxic with tachypnea. Lung exam notable for poor air movement but minimal wheezing. Likely COPD exacerbation. HOwever, given h/o DVT and recent hip surgery, will need to r/o PE. - Labs, Ddimer - CXR - CTA chest if indicated - Nebs, steroids, azithro - BiPAP PRN 10/18/18 16:46 CXR clear PT reassessed after duonebs, now feels significantly better. Work of breathing improved greatly, with better lung aeration bilaterally Ddimer pending, but will defer CTA either way given clinical picture more consistent with COPD
[2018-10-18 14:52] LABS: BASO % 0.4 % (0-2.0); HEMATOCRIT 40.8 % (35.4-49); HEMOGLOBIN 13.4 GM/dL (11.7-16.9); LYMPH % 9.7 % (8-40); MCHC 32.8 g/dl (32.0-35.9); MEAN CELL VOLUME 82.2 fl (80-96); MEAN PLT VOLUME 9.4 fl (7.5-11.1); MONO % 11.8 % (3.8-10.2); NEUT % 73.1 % (42.8-82.8); PLATELET COUNT 207 K/MM3 (134-434); RBC 4.96 M/mm3 (4.00-5.60); RDW 17.5 % (11.9-15.9); WHITE BLOOD COUNT 7.6 K/mm3 (4.0-10.0)
[2018-10-18 15:27] LABS: ALBUMIN 4.1 g/dl (3.4-5.0); ALK PHOS 202 U/L (45-117); ANION GAP 8 MMOL/L (8-16); BILIRUBIN,TOTAL 0.3 mg/dL (0.2-1); BLOOD UREA NITROGEN 17 mg/dL (7-18); CALCIUM 9.3 mg/dL (8.5-10.1); CHLORIDE 97 mmol/L (98-107); CO2 31 mmol/L (21-32); CREATININE 0.6 mg/dL (0.55-1.3); GLUCOSE,RANDOM 90 mg/dL (74-106); POTASSIUM 4.4 mmol/L (3.5-5.1); SGOT/AST 10 U/L (15-37); SGPT/ALT 17 U/L (13-61); SODIUM 136 mmol/L (136-145)
[2018-10-18 15:51] LABS: VENOUS PC02 56.6 mmHg (38-52); VENOUS PH 7.37 (7.32-7.42); VENOUS PO2 28.7 mmHg (28-48)
[2018-10-18 16:35] LABS: INR 1.07 (0.83-1.09); PROTHROMBIN TIME (PATIENT) 12.6 SEC (9.7-13.0)
[2018-10-18 16:38] LABS: ACTIVATED PTT 31.8 SECONDS (25.2-36.5)
--- NOTE | 2018-10-18 19:09 | HP ---
Admitting History and Physical - Primary Care Physician PCP: Joshua Durán - Admission Chief Complaint: SOB History of Present Illness: Pt with significant Hx/o COPD, CHF, CAD developed cough for few days and cough, that got gorse for one day, associated with wheezing and white-yellowish sputum. History Source: Patient - Past Medical History Cardiovascular: Yes: CAD (s/p PCI with cardiac stent), HTN, Hyperlipdemia Pulmonary: Yes: COPD, O2 Dependent Gastrointestinal: Yes: GERD - Past Surgical History Past Surgical History: Yes: Joint Replacement - Smoking History Smoking history: Never smoked Have you smoked in the past 12 months: No Aproximately how many cigarettes per day: 0 If you are a former smoker, when did you quit?: 14 years - Alcohol/Substance Use Hx Alcohol Use: No - Social History History of Recent Travel: No Home Medications - Allergies Allergies/Adverse Reactions: Allergies Allergy/AdvReac Type Severity Reaction Status Date / Time No Known Drug Allergies Allergy Verified 09/01/18 13:31 - Home Medications Home Medications: Ambulatory Orders Esomeprazole Mag Trihydrate [Nexium] 40 mg PO DAILY 06/11/14 Phenytoin Na Extended [Dilantin -] 100 mg PO BID 06/11/14 Tiotropium [place] [Spiriva] 1 inh PO DAILY 06/11/14 Diltiazem HCl [Dilacor Xr] 120 mg PO DAILY #120 cap.er.deg 06/15/14 Montelukast Na [Singulair -] 10 mg PO HS #90 tablet 06/15/14 Simvastatin [Zocor -] 20 mg PO HS #90 06/15/14 Levalbuterol Tartrate [Xopenex Hfa] 45 mcg IH BID 02/04/16 Fluticasone Prop 0.05% Nasal [Flonase -] 2 spray NS DAILY #1 spray MDD 2 Albuterol 0.083% Nebulizer Arlyn [Ventolin 0.083% Nebulizer Soln -] 1 amp NEB Q6H PRN amp 09/06/18 Aspirin/Dipyridamole [Aggrenox -] 1 combo PO BID capsule 09/06/18 Magnesium Oxide [Mag-Ox -] 400 mg PO BID tablet 09/06/18 Acetaminophen [Tylenol .Regular Strength -] 650 mg PO Q8H 10/18/18 Oseltamivir Phosphate [Tamiflu] 75 mg PO DAILY 10/18/18 Review of Systems - Review of Systems Constitutional: denies: Chills, Fever Eyes: denies: Blurred Vision, Double Vision HENT: denies: Difficult Swallowing, Ear Discharge, Ear Pain, Nasal Congestion, Throat Pain Neck: denies: Pain on Movement, Stiffness Cardiovascular: denies: Chest Pain, Edema, Palpitations Respiratory: reports: Cough, SOB, Wheezing. denies: Hemoptysis Gastrointestinal: denies: Abdominal Pain, Diarrhea, Nausea, Vomiting Genitourinary: denies: Burning, Discharge, Dysuria Neurological: denies: Change in LOC, Change in Speech, Numbness, Tremors Endocrine: denies: Excessive Sweating, Intolerance to Cold Hematology/Lymphatic: denies: Easily Bruised, Excessive Bleeding Psychiatric: denies: Anxiety, Depression Physical Examination Vital Signs: Vital Signs Temperature 97.6 F 10/18/18 13:10 Pulse Rate 77 10/18/18 17:00 Respiratory Rate 20 10/18/18 17:00 Blood Pressure 118/66 10/18/18 17:00 O2 Sat by Pulse Oximetry (%) 94 L 10/18/18 17:00 Constitutional: Yes: No Distress, Calm Eyes: Yes: Conjunctiva Clear, EOM Intact, PERRL HENT: Yes: Pharyngeal Erythema. No: Epistaxis, Rhinnorhea Neck: Yes: Trachea Midline. No: Lymphadenopathy Cardiovascular: Yes: Regular Rate and Rhythm, S1, S2 Respiratory: Yes: Regular, Rhonchi, Wheezes Gastrointestinal: Yes: Normal Bowel Sounds, Soft. No: Abdomen, Obese, Tenderness Edema: No Neurological: Yes: Alert, Oriented Labs: CBC, BMP 10/18/18 14:29 10/18/18 14:29 Imaging - Results Chest X-ray: Report Reviewed Problem List - Problems (1) Acute exacerbation of chronic obstructive pulmonary disease (COPD) Code(s): J44.1 - CHRONIC OBSTRUCTIVE PULMONARY DISEASE W (ACUTE) EXACERBATION (2) Acute bronchitis Code(s): J20.9 - ACUTE BRONCHITIS, UNSPECIFIED (3) CAD (coronary artery disease) Code(s): I25.10 - ATHSCL HEART DISEASE OF [place] CORONARY ARTERY W/O ANG PCTRS (4) Cachexia Code(s): R64 - CACHEXIA (5) GERD (gastroesophageal reflux disease) Code(s): K21.9 - GASTRO-ESOPHAGEAL REFLUX DISEASE WITHOUT ESOPHAGITIS (6) HTN (hypertension) Code(s): I10 - ESSENTIAL (PRIMARY) HYPERTENSION (7) Hypercholesterolemia Code(s): E78.0 - PURE HYPERCHOLESTEROLEMIA * DO NOT USE * (8) Impaired gait Code(s): R26.9 - UNSPECIFIED ABNORMALITIES OF GAIT AND MOBILITY Assessment/Plan IV Solu-medrol IV abtx Pulmonary consult PT eval AM labs
[2018-10-19] MEDS ORDERED: ALBUTEROL SO4 2.5/IPRATROPIUM 0.5 INH SOL 3 ML VIAL.NEB. NEB ONE (00:01)
[2018-10-19] MEDS: methylPREDNISolone NA SUCC 40 MG/1 ML VIAL IVPUSH SCH ×4 (02:33→22:09)
[2018-10-19 07:41] LABS: HEMATOCRIT 36.5 % (35.4-49); MCH 26.6 pg (25.7-33.7); MCHC 32.8 g/dl (32.0-35.9); MEAN CELL VOLUME 81.1 fl (80-96); MEAN PLT VOLUME 9.5 fl (7.5-11.1); PLATELET COUNT 225 K/MM3 (134-434); WHITE BLOOD COUNT 4.5 K/mm3 (4.0-10.0)
[2018-10-19 09:02] LABS: ALBUMIN 3.5 g/dl (3.4-5.0); ALK PHOS 179 U/L (45-117); ANION GAP 8 MMOL/L (8-16); BILIRUBIN,TOTAL 0.3 mg/dL (0.2-1); CALCIUM 9.2 mg/dL (8.5-10.1); CHLORIDE 98 mmol/L (98-107); CO2 29 mmol/L (21-32); CREATININE 0.5 mg/dL (0.55-1.3); GLUCOSE,RANDOM 111 mg/dL (74-106); POTASSIUM 4.7 mmol/L (3.5-5.1); SGPT/ALT 15 U/L (13-61); SODIUM 134 mmol/L (136-145); TOT PROT 7.1 g/dl (6.4-8.2)
[2018-10-19] MEDS ORDERED: ACETAMINOPHEN 325 MG TABLET (FP) PO SCH (10:15)
[2018-10-19] MEDS: ASPIRIN/DIPYRIDAMOLE 25 MG/200 MG CAPSULE (FP) PO SCH ×2 (11:49→22:09)
--- NOTE | 2018-10-19 12:03 | CON.PULM ---
Consult Consult Specialty:: PULMONARY Referred by:: Dr Durán Reason for Consultation:: shortness of breath - History of Present Illness Chief Complaint: shortness of breath History of Present Illness: 72yo male with h/o HTN, hyperlipidemia, COPD, seizure disorder, GERD who was [place] for worsening shortness of breath. Reports a cough productive of white sputum and wheezing. No chest pain but with chest tightness. No fevers, chills or sweats. Reports has not been receiving his nebulizer treatments as often as he needs them. Started on IV medrol, inhaled bronchodilators with improvement in his symptoms but not back to baseline. He is a former long time smoker, started at age 17, smoked 1 PPD until he quit 15 years ago. - History Source History Provided By: Patient, Medical Record Limitations to Obtaining History: Poor Historian - Past Medical History Cardio/Vascular: Yes: CAD (s/p PCI with cardiac stent), HTN, Hyperlipdemia Pulmonary: Yes: COPD, O2 Dependent Gastrointestinal: Yes: GERD - Past Surgical History Past Surgical History: Yes: Joint Replacement - Alcohol/Substance Use Hx Alcohol Use: No - Smoking History Smoking history: Former smoker Have you smoked in the past 12 months: No Aproximately how many cigarettes per day: 0 If you are a former smoker, when did you quit?: 18 years - Social History History of Recent Travel: No Home Medications - Allergies Allergies/Adverse Reactions: Allergies Allergy/AdvReac Type Severity Reaction Status Date / Time No Known Drug Allergies Allergy Verified 09/01/18 13:31 - Home Medications Home Medications: Ambulatory Orders Esomeprazole Mag Trihydrate [Nexium] 40 mg PO DAILY 06/11/14 Phenytoin Na Extended [Dilantin -] 100 mg PO BID 06/11/14 Tiotropium [place] [Spiriva] 1 inh PO DAILY 06/11/14 Diltiazem HCl [Dilacor Xr] 120 mg PO DAILY #120 cap.er.deg 06/15/14 Montelukast Na [Singulair -] 10 mg PO HS #90 tablet 06/15/14 Simvastatin [Zocor -] 20 mg PO HS #90 06/15/14 Levalbuterol Tartrate [Xopenex Hfa] 45 mcg IH BID 02/04/16 Fluticasone Prop 0.05% Nasal [Flonase -] 2 spray NS DAILY #1 spray MDD 2 04/14/ 18 Albuterol 0.083% Nebulizer Arlyn [Ventolin 0.083% Nebulizer Soln -] 1 amp NEB Q6H PRN amp 09/06/18 Aspirin/Dipyridamole [Aggrenox -] 1 combo PO BID capsule 09/06/18 Magnesium Oxide [Mag-Ox -] 400 mg PO BID tablet 09/06/18 Acetaminophen [Tylenol .Regular Strength -] 650 mg PO Q8H 10/18/18 Oseltamivir Phosphate [Tamiflu] 75 mg PO DAILY 10/18/18 Review of Systems - Review of Systems Constitutional: reports: Weakness. denies: Chills, Fever Eyes: denies: Recent Change in Vision HENT: denies: Nasal Congestion, Throat Pain Neck: denies: Stiffness, Tenderness Cardiovascular: reports: Shortness of Breath. denies: Chest Pain Respiratory: reports: Cough, Wheezing. denies: Hemoptysis Gastrointestinal: denies: Abdominal Pain, Nausea, Vomiting Genitourinary: denies: Dysuria, Hematuria Neurological: denies: Dizziness, Headache Endocrine: denies: Unexplained Weight Loss Physical Exam Vital Sings: Vital Signs Temperature 98 F 10/19/18 04:14 Pulse Rate 79 10/19/18 04:14 Respiratory Rate 18 10/19/18 04:30 Blood Pressure 110/51 L 10/19/18 04:14 O2 Sat by Pulse Oximetry (%) 95 10/19/18 04:30 Constitutional: Yes: Anxious Eyes: Yes: Conjunctiva Clear, EOM Intact HENT: Yes: Atraumatic, Normocephalic Neck: Yes: Supple, Trachea Midline Cardiovascular: Yes: Regular Rate and Rhythm Respiratory: Yes: Diminished (distant breath sounds) ...Clubbing: No Gastrointestinal: Yes: Normal Bowel Sounds, Soft. No: Tenderness Edema: No Neurological: Yes: Alert, Oriented Labs: CBC, BMP 10/19/18 06:50 10/19/18 06:50 Imaging - Results Chest X-ray: Report Reviewed, Image Reviewed (no acute infiltrates) Assessment/Plan Acute COPD Exacerbation Acute Bronchitis HTN Hyperlipidemia Seizure Disorder GERD - agree with IV medrol - inhaled bronchodilators standing and PRN - O2 to keep SpO2 >90% - empiric antibiotics - DVT prophylaxis Thank you for this consult Alex Alford MD
[2018-10-19] MEDS ORDERED: ENOXAPARIN NA (PORCINE) 40 MG/0.4 ML DISP.SYRIN SQ SCH (12:15)
[2018-10-19] MEDS ORDERED: ACETAMINOPHEN 325 MG TABLET (FP) PO PRN (15:14)
[2018-10-19] MEDS ORDERED: PT OWN MED DRAWER 7, Y5N ONE (15:15)
[2018-10-19] MEDS: ALBUTEROL SO4 0.083% IH SOL 2.5 MG/3 ML VIAL.NEB. NEB SCH ×2 (15:17→21:30)
[2018-10-19] MEDS: AZITHROMYCIN IVPB 500 MG/250 ML BAG IVPB SCH (16:18)
[2018-10-19] MEDS: PHENYTOIN NA EXTENDED 100 MG CAPSULE (FP) PO SCH ×2 (16:18→22:09)
[2018-10-19] MEDS: TIOTROPIUM BROMIDE 2.5 MCG (SPIRIVA) RESPIMAT INHALER IH SCH (16:18)
[2018-10-19] MEDS: MAGNESIUM OXIDE 400 MG TABLET (FP) PO SCH ×2 (16:18→22:09)
--- NOTE | 2018-10-19 16:32 | EKG ---
Test Reason : Blood Pressure : / mmHG Vent. Rate : 076 BPM Atrial Rate : 076 BPM P-R Int : 198 ms QRS Dur : 116 ms QT Int : 384 ms P-R-T Axes : 084 -76 088 degrees QTc Int : 432 ms POOR DATA QUALITY, INTERPRETATION MAY BE ADVERSELY AFFECTED NORMAL SINUS RHYTHM POSSIBLE LEFT ATRIAL ENLARGEMENT LEFT AXIS DEVIATION INCOMPLETE RIGHT BUNDLE BRANCH BLOCK CANNOT RULE OUT ANTEROSEPTAL INFARCT (CITED ON OR BEFORE 29-OCT-2007) ABNORMAL ECG WHEN COMPARED WITH ECG OF 01-SEP-2018 16:41, ABERRANT CONDUCTION IS NO LONGER PRESENT Confirmed by Guy Galeas ([id number]) on 10/19/2018 4:31:36 PM Referred By: Confirmed By:Guy Galeas
[2018-10-19] MEDS: MONTELUKAST NA 10 MG TABLET PO SCH (22:09)
--- NOTE | 2018-10-19 22:57 | PN ---
Progress Note, Physician History of Present Illness: Pt's breathing is better, less cough than last night. Pt w/o CP, palpitations, dizziness, abd pain. Pt feels weak. - Current Medication List Current Medications: Active Medications Acetaminophen (Tylenol -) 650 mg PO Q8H PRN PRN Reason: PAIN LEVEL 1-5 Albuterol Sulfate (Ventolin 0.083% Nebulizer Soln -) 1 amp NEB Q6H PRN PRN Reason: SHORT OF BREATH/WHEEZING Albuterol Sulfate (Ventolin 0.083% Nebulizer Soln -) 1 amp NEB RQID [facility] Last Admin: 10/19/18 21:30 Dose: 1 amp Diltiazem HCl (Cardizem Cd -) 120 mg PO DAILY [facility] Last Admin: 10/19/18 11:49 Dose: 120 mg Dipyridamole/Aspirin (Aggrenox -) 1 combo PO BID [facility] Last Admin: 10/19/18 22:09 Dose: 1 combo Fluticasone Propionate (Flonase -) 2 spray NS DAILY [facility] Azithromycin (Zithromax 500mg Ivpb (Pre-Docked)) 500 mg in 250 mls @ 250 mls/ hr IVPB DAILY [facility] Stop: 10/22/18 10:59 Last Admin: 10/19/18 16:18 Dose: 250 mls/hr Magnesium Oxide (Mag-Ox -) 400 mg PO BID [facility] Last Admin: 10/19/18 22:09 Dose: 400 mg Methylprednisolone Sodium Succinate (Solu-Medrol -) 40 mg IVPUSH Q6H-IV [facility] Last Admin: 10/19/18 22:09 Dose: 40 mg Montelukast Sodium (Singulair -) 10 mg PO HS [facility] Last Admin: 10/19/18 22:09 Dose: 10 mg Phenytoin Sodium (Dilantin -) 100 mg PO BID [facility] Last Admin: 10/19/18 22:09 Dose: 100 mg Tiotropium [place] (Spiriva Respimat) 2 puff IH DAILY [facility] Last Admin: 10/19/18 16:18 Dose: 2 puff - Objective Vital Signs: Vital Signs Temperature 97.4 F L 10/19/18 18:00 Pulse Rate 84 10/19/18 18:00 Respiratory Rate 20 10/19/18 18:00 Blood Pressure 95/61 10/19/18 18:00 O2 Sat by Pulse Oximetry (%) 100 10/19/18 09:00 Constitutional: Yes: No Distress, Calm Cardiovascular: Yes: Regular Rate and Rhythm, S1, S2 Respiratory: Yes: Regular, Rhonchi (bilat, no wheezing) Gastrointestinal: Yes: Normal Bowel Sounds, Soft. No: Tenderness Edema: No Neurological: Yes: Alert, Oriented Labs: CBC, BMP 10/19/18 06:50 10/19/18 06:50 INR, PTT INR 1.07 (0.83-1.09) 10/18/18 15:34 Problem List - Problems (1) Acute exacerbation of chronic obstructive pulmonary disease (COPD) Code(s): J44.1 - CHRONIC OBSTRUCTIVE PULMONARY DISEASE W (ACUTE) EXACERBATION (2) Acute bronchitis Code(s): J20.9 - ACUTE BRONCHITIS, UNSPECIFIED (3) CAD (coronary artery disease) Code(s): I25.10 - ATHSCL HEART DISEASE OF [place] CORONARY ARTERY W/O ANG PCTRS (4) Cachexia Code(s): R64 - CACHEXIA (5) GERD (gastroesophageal reflux disease) Code(s): K21.9 - GASTRO-ESOPHAGEAL REFLUX DISEASE WITHOUT ESOPHAGITIS (6) HTN (hypertension) Code(s): I10 - ESSENTIAL (PRIMARY) HYPERTENSION (7) Hypercholesterolemia Code(s): E78.0 - PURE HYPERCHOLESTEROLEMIA * DO NOT USE * (8) Impaired gait Code(s): R26.9 - UNSPECIFIED ABNORMALITIES OF GAIT AND MOBILITY Assessment/Plan IV Solu-medrol IV abtx Pulmonary consult is appreciated Continue PT. OOBTC AM labs
[2018-10-20] MEDS: methylPREDNISolone NA SUCC 40 MG/1 ML VIAL IVPUSH SCH ×6 (02:52→23:22)
[2018-10-20 08:20] LABS: ANION GAP 7 MMOL/L (8-16); BLOOD UREA NITROGEN 32 mg/dL (7-18); CALCIUM 8.5 mg/dL (8.5-10.1); CHLORIDE 97 mmol/L (98-107); CO2 29 mmol/L (21-32); CREATININE 0.7 mg/dL (0.55-1.3); GLUCOSE,RANDOM 126 mg/dL (74-106); POTASSIUM 4.9 mmol/L (3.5-5.1); SODIUM 132 mmol/L (136-145)
[2018-10-20] MEDS: ALBUTEROL SO4 0.083% IH SOL 2.5 MG/3 ML VIAL.NEB. NEB SCH ×4 (08:45→20:36)
[2018-10-20] MEDS ORDERED: PT OWN MED DRAWER 7, Y5N ONE ×2 (11:03→21:58)
[2018-10-20] MEDS: ASPIRIN/DIPYRIDAMOLE 25 MG/200 MG CAPSULE (FP) PO SCH ×2 (11:05→23:21)
[2018-10-20] MEDS: PHENYTOIN NA EXTENDED 100 MG CAPSULE (FP) PO SCH ×2 (11:05→23:21)
[2018-10-20] MEDS: AZITHROMYCIN IVPB 500 MG/250 ML BAG IVPB SCH (11:05)
[2018-10-20] MEDS: MAGNESIUM OXIDE 400 MG TABLET (FP) PO SCH ×2 (11:05→23:21)
[2018-10-20] MEDS: TIOTROPIUM BROMIDE 2.5 MCG (SPIRIVA) RESPIMAT INHALER IH SCH (11:11)
--- NOTE | 2018-10-20 13:46 | PN ---
Progress Note, Physician History of Present Illness: Pt's breathing is the same. Pt w/o CP, palpitations, dizziness, abd pain. Pt feels weak. - Current Medication List Current Medications: Active Medications Acetaminophen (Tylenol -) 650 mg PO Q8H PRN PRN Reason: PAIN LEVEL 1-5 Albuterol Sulfate (Ventolin 0.083% Nebulizer Soln -) 1 amp NEB Q6H PRN PRN Reason: SHORT OF BREATH/WHEEZING Albuterol Sulfate (Ventolin 0.083% Nebulizer Soln -) 1 amp NEB RQID [facility] Last Admin: 10/20/18 11:41 Dose: 1 amp Diltiazem HCl (Cardizem Cd -) 120 mg PO DAILY [facility] Last Admin: 10/20/18 11:05 Dose: 120 mg Dipyridamole/Aspirin (Aggrenox -) 1 combo PO BID [facility] Last Admin: 10/20/18 11:05 Dose: 1 combo Fluticasone Propionate (Flonase -) 2 spray NS DAILY [facility] Azithromycin (Zithromax 500mg Ivpb (Pre-Docked)) 500 mg in 250 mls @ 250 mls/ hr IVPB DAILY [facility] Stop: 10/22/18 10:59 Last Admin: 10/20/18 11:05 Dose: 250 mls/hr Magnesium Oxide (Mag-Ox -) 400 mg PO BID [facility] Last Admin: 10/20/18 11:05 Dose: 400 mg Methylprednisolone Sodium Succinate (Solu-Medrol -) 40 mg IVPUSH Q6H-IV [facility] Last Admin: 10/20/18 11:18 Dose: Not Given Montelukast Sodium (Singulair -) 10 mg PO HS [facility] Last Admin: 10/19/18 22:09 Dose: 10 mg Phenytoin Sodium (Dilantin -) 100 mg PO BID [facility] Last Admin: 10/20/18 11:05 Dose: 100 mg Tiotropium [place] (Spiriva Respimat) 2 puff IH DAILY [facility] Last Admin: 10/20/18 11:11 Dose: 2 puff - Objective Vital Signs: Vital Signs Temperature 97.3 F L 10/20/18 10:39 Pulse Rate 62 10/20/18 10:39 Respiratory Rate 20 10/20/18 10:39 Blood Pressure 116/62 10/20/18 10:39 O2 Sat by Pulse Oximetry (%) 100 02/13/19 05:38 Constitutional: Yes: No Distress, Calm Cardiovascular: Yes: Regular Rate and Rhythm, S1, S2 Respiratory: Yes: Regular, Rhonchi Gastrointestinal: Yes: Normal Bowel Sounds, Soft. No: Tenderness Edema: No Neurological: Yes: Alert, Oriented Labs: CBC, BMP 10/19/18 06:50 10/20/18 06:30 INR, PTT INR 1.07 (0.83-1.09) 10/18/18 15:34 Problem List - Problems (1) Acute exacerbation of chronic obstructive pulmonary disease (COPD) Code(s): J44.1 - CHRONIC OBSTRUCTIVE PULMONARY DISEASE W (ACUTE) EXACERBATION (2) Acute bronchitis Code(s): J20.9 - ACUTE BRONCHITIS, UNSPECIFIED (3) CAD (coronary artery disease) Code(s): I25.10 - ATHSCL HEART DISEASE OF [place] CORONARY ARTERY W/O ANG PCTRS (4) Cachexia Code(s): R64 - CACHEXIA (5) GERD (gastroesophageal reflux disease) Code(s): K21.9 - GASTRO-ESOPHAGEAL REFLUX DISEASE WITHOUT ESOPHAGITIS (6) HTN (hypertension) Code(s): I10 - ESSENTIAL (PRIMARY) HYPERTENSION (7) Hypercholesterolemia Code(s): E78.0 - PURE HYPERCHOLESTEROLEMIA * DO NOT USE * (8) Impaired gait Code(s): R26.9 - UNSPECIFIED ABNORMALITIES OF GAIT AND MOBILITY Assessment/Plan IV Solu-medrol; to migdalia per Pulmonary IV abtx Pulmonary consult is appreciated Continue PT. OOBTC AM labs
[2018-10-20] MEDS: FLUTICASONE PROP 0.05% 16 GM NASAL SPRAY NS SCH (13:51)
--- NOTE | 2018-10-20 15:11 | PN ---
Progress Note, Physician History of Present Illness: pulmonary alert,feeling better.less dyspneic - Current Medication List Current Medications: Active Medications Acetaminophen (Tylenol -) 650 mg PO Q8H PRN PRN Reason: PAIN LEVEL 1-5 Albuterol Sulfate (Ventolin 0.083% Nebulizer Soln -) 1 amp NEB Q6H PRN PRN Reason: SHORT OF BREATH/WHEEZING Albuterol Sulfate (Ventolin 0.083% Nebulizer Soln -) 1 amp NEB RQID [facility] Last Admin: 10/20/18 11:41 Dose: 1 amp Diltiazem HCl (Cardizem Cd -) 120 mg PO DAILY [facility] Last Admin: 10/20/18 11:05 Dose: 120 mg Dipyridamole/Aspirin (Aggrenox -) 1 combo PO BID [facility] Last Admin: 10/20/18 11:05 Dose: 1 combo Fluticasone Propionate (Flonase -) 2 spray NS DAILY [facility] Last Admin: 10/20/18 13:51 Dose: Not Given Azithromycin (Zithromax 500mg Ivpb (Pre-Docked)) 500 mg in 250 mls @ 250 mls/ hr IVPB DAILY [facility] Stop: 10/22/18 10:59 Last Admin: 10/20/18 11:05 Dose: 250 mls/hr Magnesium Oxide (Mag-Ox -) 400 mg PO BID [facility] Last Admin: 10/20/18 11:05 Dose: 400 mg Methylprednisolone Sodium Succinate (Solu-Medrol -) 40 mg IVPUSH Q6H-IV [facility] Last Admin: 10/20/18 11:18 Dose: Not Given Montelukast Sodium (Singulair -) 10 mg PO HS [facility] Last Admin: 10/19/18 22:09 Dose: 10 mg Phenytoin Sodium (Dilantin -) 100 mg PO BID [facility] Last Admin: 10/20/18 11:05 Dose: 100 mg Tiotropium [place] (Spiriva Respimat) 2 puff IH DAILY [facility] Last Admin: 10/20/18 11:11 Dose: 2 puff - Objective Vital Signs: Vital Signs Temperature 97.3 F L 10/20/18 10:39 Pulse Rate 62 10/20/18 10:39 Respiratory Rate 20 10/20/18 10:39 Blood Pressure 116/62 10/20/18 10:39 O2 Sat by Pulse Oximetry (%) 100 10/20/18 05:38 Constitutional: Yes: Calm, Cachectic Eyes: Yes: WNL HENT: Yes: WNL Neck: Yes: WNL Cardiovascular: Yes: Regular Rate and Rhythm, S1, S2 Respiratory: Yes: Diminished Gastrointestinal: Yes: Normal Bowel Sounds, Soft Extremities: Yes: WNL Edema: No Labs: 10/20/18 06:30 INR, PTT Problem List - Problems (1) Acute exacerbation of chronic obstructive pulmonary disease (COPD) Code(s): J44.1 - CHRONIC OBSTRUCTIVE PULMONARY DISEASE W (ACUTE) EXACERBATION (2) Anemia Code(s): D64.9 - ANEMIA, UNSPECIFIED (3) Cachexia Code(s): R64 - CACHEXIA (4) Cough Code(s): R05 - COUGH (5) GERD (gastroesophageal reflux disease) Code(s): K21.9 - GASTRO-ESOPHAGEAL REFLUX DISEASE WITHOUT ESOPHAGITIS (6) URI (upper respiratory infection) Code(s): J06.9 - ACUTE UPPER RESPIRATORY INFECTION, UNSPECIFIED (7) Seizure Code(s): R56.9 - UNSPECIFIED CONVULSIONS Assessment/Plan Assessment/Plan Acute COPD Exacerbation Acute Bronchitis HTN Hyperlipidemia Seizure Disorder GERD - taper IV medrol - inhaled bronchodilators standing and PRN - O2 to keep SpO2 >90% - antibiotics - DVT prophylaxis DR LOPEZ
[2018-10-20 15:58] VITALS: BMI 13.8
[2018-10-20] MEDS ORDERED: methylPREDNISolone NA SUCC 40 MG/1 ML VIAL IVPUSH SCH (18:00)
[2018-10-20] MEDS: MONTELUKAST NA 10 MG TABLET PO SCH (23:21)
[2018-10-21] MEDS: ALBUTEROL SO4 0.083% IH SOL 2.5 MG/3 ML VIAL.NEB. NEB PRN (02:46)
[2018-10-21] MEDS: methylPREDNISolone NA SUCC 40 MG/1 ML VIAL IVPUSH SCH ×3 (05:21→21:40)
[2018-10-21] MEDS: ALBUTEROL SO4 0.083% IH SOL 2.5 MG/3 ML VIAL.NEB. NEB SCH ×4 (07:20→20:10)
[2018-10-21 08:19] LABS: ANION GAP 6 MMOL/L (8-16); BLOOD UREA NITROGEN 28 mg/dL (7-18); CALCIUM 7.9 mg/dL (8.5-10.1); CHLORIDE 98 mmol/L (98-107); CO2 30 mmol/L (21-32); CREATININE 0.5 mg/dL (0.55-1.3); GLUCOSE,RANDOM 123 mg/dL (74-106); SODIUM 134 mmol/L (136-145)
[2018-10-21] MEDS ORDERED: PT OWN MED DRAWER 7, Y5N ONE (10:58)
[2018-10-21] MEDS: PHENYTOIN NA EXTENDED 100 MG CAPSULE (FP) PO SCH ×2 (11:04→21:40)
[2018-10-21] MEDS: ASPIRIN/DIPYRIDAMOLE 25 MG/200 MG CAPSULE (FP) PO SCH ×2 (11:05→21:40)
[2018-10-21] MEDS: AZITHROMYCIN IVPB 500 MG/250 ML BAG IVPB SCH (11:05)
[2018-10-21] MEDS: MAGNESIUM OXIDE 400 MG TABLET (FP) PO SCH ×2 (11:05→21:40)
[2018-10-21] MEDS: TIOTROPIUM BROMIDE 2.5 MCG (SPIRIVA) RESPIMAT INHALER IH SCH (11:08)
[2018-10-21] MEDS: FLUTICASONE PROP 0.05% 16 GM NASAL SPRAY NS SCH (11:09)
--- NOTE | 2018-10-21 11:29 | PN ---
Progress Note (short form) - Note Progress Note: PULMONARY Breathing better today. Still with cough with clear sputum. Vital Signs Period Temp Pulse Resp BP Sys/Fernández Pulse Ox Last 24 Hr 97.4 F-97.9 F 69-76 18-22 100-116/56-68 97 Gen: NAD at rest Heart: RRR Lung: distant breath sounds, no wheezes Abd: soft, nontender Ext: no edema CBC, BMP 10/19/18 06:50 10/21/18 06:20 Active Medications Acetaminophen (Tylenol -) 650 mg PO Q8H PRN PRN Reason: PAIN LEVEL 1-5 Albuterol Sulfate (Ventolin 0.083% Nebulizer Soln -) 1 amp NEB Q6H PRN PRN Reason: SHORT OF BREATH/WHEEZING Last Admin: 10/21/18 02:46 Dose: 1 amp Albuterol Sulfate (Ventolin 0.083% Nebulizer Soln -) 1 amp NEB RQID [facility] Last Admin: 10/21/18 11:12 Dose: 1 amp Diltiazem HCl (Cardizem Cd -) 120 mg PO DAILY [facility] Last Admin: 10/21/18 11:04 Dose: 120 mg Dipyridamole/Aspirin (Aggrenox -) 1 combo PO BID [facility] Last Admin: 10/21/18 11:05 Dose: 1 combo Fluticasone Propionate (Flonase -) 2 spray NS DAILY [facility] Last Admin: 10/21/18 11:09 Dose: Not Given Azithromycin (Zithromax 500mg Ivpb (Pre-Docked)) 500 mg in 250 mls @ 250 mls/ hr IVPB DAILY [facility] Stop: 10/22/18 10:59 Last Admin: 10/21/18 11:05 Dose: 250 mls/hr Magnesium Oxide (Mag-Ox -) 400 mg PO BID [facility] Last Admin: 10/21/18 11:05 Dose: 400 mg Methylprednisolone Sodium Succinate (Solu-Medrol -) 40 mg IVPUSH Q8H [facility] Last Admin: 10/21/18 05:21 Dose: 40 mg Montelukast Sodium (Singulair -) 10 mg PO HS [facility] Last Admin: 10/20/18 23:21 Dose: 10 mg Phenytoin Sodium (Dilantin -) 100 mg PO BID [facility] Last Admin: 10/21/18 11:04 Dose: 100 mg Tiotropium [place] (Spiriva Respimat) 2 puff IH DAILY [facility] Last Admin: 10/21/18 11:08 Dose: 2 puff A/P Acute COPD Exacerbation Acute Bronchitis HTN Hyperlipidemia Seizure Disorder GERD - medrol taper, can change steroids to PO prednisone 40mg daily and taper as outpt - inhaled bronchodilators standing and PRN - O2 to keep SpO2 >90% - empiric antibiotics - DVT prophylaxis
--- NOTE | 2018-10-21 16:38 | PN ---
Progress Note, Physician History of Present Illness: Pt's breathing is better, with BHAKTA while walking. Pt w/o CP, palpitations, dizziness, abd pain. Pt feels weak. - Current Medication List Current Medications: Active Medications Acetaminophen (Tylenol -) 650 mg PO Q8H PRN PRN Reason: PAIN LEVEL 1-5 Albuterol Sulfate (Ventolin 0.083% Nebulizer Soln -) 1 amp NEB Q6H PRN PRN Reason: SHORT OF BREATH/WHEEZING Last Admin: 10/21/18 02:46 Dose: 1 amp Albuterol Sulfate (Ventolin 0.083% Nebulizer Soln -) 1 amp NEB RQID [facility] Last Admin: 10/21/18 15:33 Dose: 1 amp Diltiazem HCl (Cardizem Cd -) 120 mg PO DAILY [facility] Last Admin: 10/21/18 11:04 Dose: 120 mg Dipyridamole/Aspirin (Aggrenox -) 1 combo PO BID [facility] Last Admin: 10/21/18 11:05 Dose: 1 combo Fluticasone Propionate (Flonase -) 2 spray NS DAILY [facility] Last Admin: 10/21/18 11:09 Dose: Not Given Azithromycin (Zithromax 500mg Ivpb (Pre-Docked)) 500 mg in 250 mls @ 250 mls/ hr IVPB DAILY [facility] Stop: 10/22/18 10:59 Last Admin: 10/21/18 11:05 Dose: 250 mls/hr Magnesium Oxide (Mag-Ox -) 400 mg PO BID [facility] Last Admin: 10/21/18 11:05 Dose: 400 mg Methylprednisolone Sodium Succinate (Solu-Medrol -) 40 mg IVPUSH Q8H [facility] Last Admin: 10/21/18 13:52 Dose: 40 mg Montelukast Sodium (Singulair -) 10 mg PO HS [facility] Last Admin: 10/20/18 23:21 Dose: 10 mg Phenytoin Sodium (Dilantin -) 100 mg PO BID [facility] Last Admin: 10/21/18 11:04 Dose: 100 mg Tiotropium [place] (Spiriva Respimat) 2 puff IH DAILY [facility] Last Admin: 10/21/18 11:08 Dose: 2 puff - Objective Vital Signs: Vital Signs Temperature 97.9 F 10/21/18 14:41 Pulse Rate 85 10/21/18 14:41 Respiratory Rate 22 H 10/21/18 14:41 Blood Pressure 109/59 L 10/21/18 14:41 O2 Sat by Pulse Oximetry (%) 96 10/21/18 09:00 Constitutional: Yes: No Distress, Calm Cardiovascular: Yes: Regular Rate and Rhythm, S1, S2 Respiratory: Yes: Regular, Rhonchi (scattered) Gastrointestinal: Yes: Normal Bowel Sounds, Soft. No: Tenderness Edema: No Neurological: Yes: Alert, Oriented Labs: CBC, BMP 10/19/18 06:50 10/21/18 06:20 INR, PTT INR 1.07 (0.83-1.09) 10/18/18 15:34 Problem List - Problems (1) Acute exacerbation of chronic obstructive pulmonary disease (COPD) Code(s): J44.1 - CHRONIC OBSTRUCTIVE PULMONARY DISEASE W (ACUTE) EXACERBATION (2) Acute bronchitis Code(s): J20.9 - ACUTE BRONCHITIS, UNSPECIFIED (3) CAD (coronary artery disease) Code(s): I25.10 - ATHSCL HEART DISEASE OF [place] CORONARY ARTERY W/O ANG PCTRS (4) Cachexia Code(s): R64 - CACHEXIA (5) GERD (gastroesophageal reflux disease) Code(s): K21.9 - GASTRO-ESOPHAGEAL REFLUX DISEASE WITHOUT ESOPHAGITIS (6) HTN (hypertension) Code(s): I10 - ESSENTIAL (PRIMARY) HYPERTENSION (7) Hypercholesterolemia Code(s): E78.0 - PURE HYPERCHOLESTEROLEMIA * DO NOT USE * (8) Impaired gait Code(s): R26.9 - UNSPECIFIED ABNORMALITIES OF GAIT AND MOBILITY Assessment/Plan IV Solu-medrol was tappered down; to f/u with Pulmonary IV abtx Pulmonary consult is appreciated Continue PT. OOBTC AM labs
[2018-10-21] MEDS: MONTELUKAST NA 10 MG TABLET PO SCH (21:40)
[2018-10-22] MEDS: methylPREDNISolone NA SUCC 40 MG/1 ML VIAL IVPUSH SCH ×3 (05:59→21:32)
[2018-10-22] MEDS: ALBUTEROL SO4 0.083% IH SOL 2.5 MG/3 ML VIAL.NEB. NEB SCH ×4 (08:28→20:29)
[2018-10-22 08:35] LABS: HEMATOCRIT 34.1 % (35.4-49); HEMOGLOBIN 11.2 GM/dL (11.7-16.9); MCH 27.1 pg (25.7-33.7); MCHC 32.9 g/dl (32.0-35.9); MEAN CELL VOLUME 82.4 fl (80-96); MEAN PLT VOLUME 9.3 fl (7.5-11.1); PLATELET COUNT 198 K/MM3 (134-434); RBC 4.14 M/mm3 (4.00-5.60); RDW 17.5 % (11.9-15.9)
[2018-10-22] MEDS: ASPIRIN/DIPYRIDAMOLE 25 MG/200 MG CAPSULE (FP) PO SCH ×2 (09:46→21:32)
[2018-10-22] MEDS: PHENYTOIN NA EXTENDED 100 MG CAPSULE (FP) PO SCH ×2 (09:46→21:32)
[2018-10-22] MEDS: FLUTICASONE PROP 0.05% 16 GM NASAL SPRAY NS SCH (09:49)
[2018-10-22] MEDS: TIOTROPIUM BROMIDE 2.5 MCG (SPIRIVA) RESPIMAT INHALER IH SCH (09:49)
[2018-10-22] MEDS: MAGNESIUM OXIDE 400 MG TABLET (FP) PO SCH ×2 (09:49→21:32)
[2018-10-22] MEDS: AZITHROMYCIN IVPB 500 MG/250 ML BAG IVPB SCH (09:50)
[2018-10-22 10:45] LABS: ANION GAP 4 MMOL/L (8-16); BLOOD UREA NITROGEN 23 mg/dL (7-18); CALCIUM 8.3 mg/dL (8.5-10.1); CHLORIDE 97 mmol/L (98-107); CO2 32 mmol/L (21-32); CREATININE 0.5 mg/dL (0.55-1.3); GLUCOSE,RANDOM 82 mg/dL (74-106); POTASSIUM 4.6 mmol/L (3.5-5.1); SODIUM 134 mmol/L (136-145)
--- NOTE | 2018-10-22 11:25 | PN ---
Progress Note, Physician History of Present Illness: pulmonary alert,no distress,less dyspneic - Current Medication List Current Medications: Active Medications Acetaminophen (Tylenol -) 650 mg PO Q8H PRN PRN Reason: PAIN LEVEL 1-5 Albuterol Sulfate (Ventolin 0.083% Nebulizer Soln -) 1 amp NEB Q6H PRN PRN Reason: SHORT OF BREATH/WHEEZING Last Admin: 10/21/18 02:46 Dose: 1 amp Albuterol Sulfate (Ventolin 0.083% Nebulizer Soln -) 1 amp NEB RQID [facility] Last Admin: 10/22/18 08:28 Dose: 1 amp Diltiazem HCl (Cardizem Cd -) 120 mg PO DAILY [facility] Last Admin: 10/22/18 09:46 Dose: 120 mg Dipyridamole/Aspirin (Aggrenox -) 1 combo PO BID [facility] Last Admin: 10/22/18 09:46 Dose: 1 combo Fluticasone Propionate (Flonase -) 2 spray NS DAILY [facility] Last Admin: 10/22/18 09:49 Dose: Not Given Magnesium Oxide (Mag-Ox -) 400 mg PO BID [facility] Last Admin: 10/22/18 09:49 Dose: 400 mg Methylprednisolone Sodium Succinate (Solu-Medrol -) 40 mg IVPUSH Q8H [facility] Last Admin: 10/22/18 05:59 Dose: 40 mg Montelukast Sodium (Singulair -) 10 mg PO HS [facility] Last Admin: 10/21/18 21:40 Dose: 10 mg Phenytoin Sodium (Dilantin -) 100 mg PO BID [facility] Last Admin: 10/22/18 09:46 Dose: 100 mg Tiotropium [place] (Spiriva Respimat) 2 puff IH DAILY [facility] Last Admin: 10/22/18 09:49 Dose: 2 puff - Objective Vital Signs: Vital Signs Temperature 97.3 F L 10/22/18 06:18 Pulse Rate 72 10/22/18 06:18 Respiratory Rate 20 10/22/18 06:18 Blood Pressure 94/59 L 10/22/18 06:18 O2 Sat by Pulse Oximetry (%) 96 10/21/18 21:00 Constitutional: Yes: Calm, Cachectic Eyes: Yes: WNL HENT: Yes: WNL Neck: Yes: WNL Cardiovascular: Yes: Regular Rate and Rhythm, S1, S2 Respiratory: Yes: Diminished Gastrointestinal: Yes: Normal Bowel Sounds, Soft Extremities: Yes: WNL Edema: No Labs: CBC, BMP 10/22/18 06:20 10/22/18 06:20 INR, PTT INR 1.07 (0.83-1.09) 10/18/18 15:34 Problem List - Problems (1) Acute exacerbation of chronic obstructive pulmonary disease (COPD) Code(s): J44.1 - CHRONIC OBSTRUCTIVE PULMONARY DISEASE W (ACUTE) EXACERBATION (2) Anemia Code(s): D64.9 - ANEMIA, UNSPECIFIED (3) Cachexia Code(s): R64 - CACHEXIA (4) Cough Code(s): R05 - COUGH (5) GERD (gastroesophageal reflux disease) Code(s): K21.9 - GASTRO-ESOPHAGEAL REFLUX DISEASE WITHOUT ESOPHAGITIS (6) URI (upper respiratory infection) Code(s): J06.9 - ACUTE UPPER RESPIRATORY INFECTION, UNSPECIFIED (7) Seizure Code(s): R56.9 - UNSPECIFIED CONVULSIONS Assessment/Plan Assessment/Plan Acute COPD Exacerbation improving Acute Bronchitis HTN Hyperlipidemia Seizure Disorder GERD - taper IV medrol - inhaled bronchodilators standing and PRN - O2 to keep SpO2 >90% - antibiotics - DVT prophylaxis DR LOPEZ
[2018-10-22] MEDS ORDERED: PT OWN MED DRAWER 7, Y5N ONE (19:17)
--- NOTE | 2018-10-22 19:20 | PN ---
Progress Note, Physician History of Present Illness: Pt's breathing is better, walked easier today with PT. Pt w/o CP, palpitations, dizziness, abd pain. Pt feels weak. - Current Medication List Current Medications: Active Medications Acetaminophen (Tylenol -) 650 mg PO Q8H PRN PRN Reason: PAIN LEVEL 1-5 Albuterol Sulfate (Ventolin 0.083% Nebulizer Soln -) 1 amp NEB Q6H PRN PRN Reason: SHORT OF BREATH/WHEEZING Last Admin: 10/21/18 02:46 Dose: 1 amp Albuterol Sulfate (Ventolin 0.083% Nebulizer Soln -) 1 amp NEB RQID [facility] Last Admin: 10/22/18 15:33 Dose: 1 amp Diltiazem HCl (Cardizem Cd -) 120 mg PO DAILY [facility] Last Admin: 10/22/18 09:46 Dose: 120 mg Dipyridamole/Aspirin (Aggrenox -) 1 combo PO BID [facility] Last Admin: 10/22/18 09:46 Dose: 1 combo Fluticasone Propionate (Flonase -) 2 spray NS DAILY [facility] Last Admin: 10/22/18 09:49 Dose: Not Given Magnesium Oxide (Mag-Ox -) 400 mg PO BID [facility] Last Admin: 10/22/18 09:49 Dose: 400 mg Methylprednisolone Sodium Succinate (Solu-Medrol -) 40 mg IVPUSH BID [facility] Last Admin: 10/22/18 12:22 Dose: 40 mg Montelukast Sodium (Singulair -) 10 mg PO HS [facility] Last Admin: 10/21/18 21:40 Dose: 10 mg Phenytoin Sodium (Dilantin -) 100 mg PO BID [facility] Last Admin: 10/22/18 09:46 Dose: 100 mg Tiotropium [place] (Spiriva Respimat) 2 puff IH DAILY [facility] Last Admin: 10/22/18 09:49 Dose: 2 puff - Objective Vital Signs: Vital Signs Temperature 97.8 F 10/22/18 15:24 Pulse Rate 76 10/22/18 15:24 Respiratory Rate 22 H 10/22/18 15:24 Blood Pressure 104/59 L 10/22/18 15:24 O2 Sat by Pulse Oximetry (%) 100 10/22/18 09:00 Constitutional: Yes: No Distress, Calm Cardiovascular: Yes: Regular Rate and Rhythm, S1, S2 Respiratory: Yes: Regular, Rhonchi Gastrointestinal: Yes: Normal Bowel Sounds, Soft. No: Tenderness Edema: No Neurological: Yes: Alert, Oriented Labs: CBC, BMP 10/22/18 06:20 10/22/18 06:20 INR, PTT INR 1.07 (0.83-1.09) 10/18/18 15:34 Problem List - Problems (1) Acute exacerbation of chronic obstructive pulmonary disease (COPD) Code(s): J44.1 - CHRONIC OBSTRUCTIVE PULMONARY DISEASE W (ACUTE) EXACERBATION (2) Acute bronchitis Code(s): J20.9 - ACUTE BRONCHITIS, UNSPECIFIED (3) CAD (coronary artery disease) Code(s): I25.10 - ATHSCL HEART DISEASE OF [place] CORONARY ARTERY W/O ANG PCTRS (4) Cachexia Code(s): R64 - CACHEXIA (5) GERD (gastroesophageal reflux disease) Code(s): K21.9 - GASTRO-ESOPHAGEAL REFLUX DISEASE WITHOUT ESOPHAGITIS (6) HTN (hypertension) Code(s): I10 - ESSENTIAL (PRIMARY) HYPERTENSION (7) Hypercholesterolemia Code(s): E78.0 - PURE HYPERCHOLESTEROLEMIA * DO NOT USE * (8) Impaired gait Code(s): R26.9 - UNSPECIFIED ABNORMALITIES OF GAIT AND MOBILITY Assessment/Plan IV Solu-medrol was tapered down to BID. Pulmonary consult is appreciated Continue PT. OOBTC AM labs
[2018-10-22] MEDS: MONTELUKAST NA 10 MG TABLET PO SCH (21:32)
[2018-10-23] MEDS: ALBUTEROL SO4 0.083% IH SOL 2.5 MG/3 ML VIAL.NEB. NEB PRN (03:34)
[2018-10-23] MEDS: ALBUTEROL SO4 0.083% IH SOL 2.5 MG/3 ML VIAL.NEB. NEB SCH ×4 (08:18→21:00)
[2018-10-23 10:02] LABS: ANION GAP 7 MMOL/L (8-16); BLOOD UREA NITROGEN 24 mg/dL (7-18); CALCIUM 8.4 mg/dL (8.5-10.1); CHLORIDE 99 mmol/L (98-107); CO2 28 mmol/L (21-32); CREATININE 0.5 mg/dL (0.55-1.3); GLUCOSE,RANDOM 70 mg/dL (74-106); SODIUM 133 mmol/L (136-145)
[2018-10-23] MEDS ORDERED: PT OWN MED DRAWER 7, Y5N ONE ×2 (10:19→20:49)
[2018-10-23] MEDS: PHENYTOIN NA EXTENDED 100 MG CAPSULE (FP) PO SCH ×2 (10:24→23:11)
[2018-10-23] MEDS: ASPIRIN/DIPYRIDAMOLE 25 MG/200 MG CAPSULE (FP) PO SCH ×2 (10:24→23:12)
[2018-10-23] MEDS: MAGNESIUM OXIDE 400 MG TABLET (FP) PO SCH ×2 (10:24→23:12)
[2018-10-23] MEDS: methylPREDNISolone NA SUCC 40 MG/1 ML VIAL IVPUSH SCH ×2 (10:27→23:12)
[2018-10-23] MEDS: TIOTROPIUM BROMIDE 2.5 MCG (SPIRIVA) RESPIMAT INHALER IH SCH (10:27)
[2018-10-23] MEDS: FLUTICASONE PROP 0.05% 16 GM NASAL SPRAY NS SCH (10:29)
--- NOTE | 2018-10-23 12:59 | PN ---
Progress Note (short form) - Note Progress Note: PULMONARY Some increased shortness of breath after eating lunch. Still with cough with whitish sputum. Vital Signs Period Temp Pulse Resp BP Sys/Fernández Pulse Ox Last 24 Hr 97.3 F-97.8 F 72-88 20-24 104-108/59-60 99-100 Gen: mildly tachypneic at rest Heart: RRR Lung: distant breath sounds, no wheezes Abd: soft, nontender Ext: no edema CBC, BMP 10/22/18 06:20 10/23/18 06:00 Active Medications Acetaminophen (Tylenol -) 650 mg PO Q8H PRN PRN Reason: PAIN LEVEL 1-5 Albuterol Sulfate (Ventolin 0.083% Nebulizer Soln -) 1 amp NEB Q6H PRN PRN Reason: SHORT OF BREATH/WHEEZING Last Admin: 10/23/18 03:34 Dose: 1 amp Albuterol Sulfate (Ventolin 0.083% Nebulizer Soln -) 1 amp NEB RQID [facility] Last Admin: 10/23/18 11:37 Dose: 1 amp Diltiazem HCl (Cardizem Cd -) 120 mg PO DAILY [facility] Last Admin: 10/23/18 10:26 Dose: Not Given Dipyridamole/Aspirin (Aggrenox -) 1 combo PO BID [facility] Last Admin: 10/23/18 10:24 Dose: 1 combo Fluticasone Propionate (Flonase -) 2 spray NS DAILY [facility] Last Admin: 10/23/18 10:29 Dose: Not Given Magnesium Oxide (Mag-Ox -) 400 mg PO BID [facility] Last Admin: 10/23/18 10:24 Dose: 400 mg Methylprednisolone Sodium Succinate (Solu-Medrol -) 40 mg IVPUSH BID [facility] Last Admin: 10/23/18 10:27 Dose: 40 mg Montelukast Sodium (Singulair -) 10 mg PO HS [facility] Last Admin: 10/22/18 21:32 Dose: 10 mg Phenytoin Sodium (Dilantin -) 100 mg PO BID [facility] Last Admin: 10/23/18 10:24 Dose: 100 mg Tiotropium [place] (Spiriva Respimat) 2 puff IH DAILY [facility] Last Admin: 10/23/18 10:27 Dose: 2 puff A/P Acute COPD Exacerbation Acute Bronchitis HTN Hyperlipidemia Seizure Disorder GERD - medrol taper - inhaled bronchodilators standing and PRN - O2 to keep SpO2 >90% - completed empiric antibiotics - DVT prophylaxis
--- NOTE | 2018-10-23 15:26 | PN ---
Progress Note, Physician History of Present Illness: Pt's breathing is better than at admission. Pt is feeling weak when walking, doesn't think can go home yet. Pt w/o CP, palpitations, dizziness, abd pain. - Current Medication List Current Medications: Active Medications Acetaminophen (Tylenol -) 650 mg PO Q8H PRN PRN Reason: PAIN LEVEL 1-5 Albuterol Sulfate (Ventolin 0.083% Nebulizer Soln -) 1 amp NEB Q6H PRN PRN Reason: SHORT OF BREATH/WHEEZING Last Admin: 10/23/18 03:34 Dose: 1 amp Albuterol Sulfate (Ventolin 0.083% Nebulizer Soln -) 1 amp NEB RQID [facility] Last Admin: 10/23/18 11:37 Dose: 1 amp Diltiazem HCl (Cardizem Cd -) 120 mg PO DAILY [facility] Last Admin: 10/23/18 10:26 Dose: Not Given Dipyridamole/Aspirin (Aggrenox -) 1 combo PO BID [facility] Last Admin: 10/23/18 10:24 Dose: 1 combo Fluticasone Propionate (Flonase -) 2 spray NS DAILY [facility] Last Admin: 10/23/18 10:29 Dose: Not Given Magnesium Oxide (Mag-Ox -) 400 mg PO BID [facility] Last Admin: 10/23/18 10:24 Dose: 400 mg Methylprednisolone Sodium Succinate (Solu-Medrol -) 40 mg IVPUSH BID [facility] Last Admin: 10/23/18 10:27 Dose: 40 mg Montelukast Sodium (Singulair -) 10 mg PO HS [facility] Last Admin: 10/22/18 21:32 Dose: 10 mg Phenytoin Sodium (Dilantin -) 100 mg PO BID [facility] Last Admin: 10/23/18 10:24 Dose: 100 mg Tiotropium [place] (Spiriva Respimat) 2 puff IH DAILY [facility] Last Admin: 10/23/18 10:27 Dose: 2 puff - Objective Vital Signs: Vital Signs Temperature 97.5 F L 10/23/18 14:15 Pulse Rate 83 10/23/18 14:15 Respiratory Rate 22 H 10/23/18 14:15 Blood Pressure 105/56 L 10/23/18 14:15 O2 Sat by Pulse Oximetry (%) 99 10/23/18 10:21 Constitutional: Yes: No Distress, Calm Cardiovascular: Yes: Regular Rate and Rhythm, S1, S2 Respiratory: Yes: Regular, Rhonchi Gastrointestinal: Yes: Normal Bowel Sounds, Soft. No: Tenderness Edema: No Neurological: Yes: Alert, Oriented Labs: CBC, BMP 10/22/18 06:20 10/23/18 06:00 INR, PTT INR 1.07 (0.83-1.09) 10/18/18 15:34 Problem List - Problems (1) Acute exacerbation of chronic obstructive pulmonary disease (COPD) Code(s): J44.1 - CHRONIC OBSTRUCTIVE PULMONARY DISEASE W (ACUTE) EXACERBATION (2) Acute bronchitis Code(s): J20.9 - ACUTE BRONCHITIS, UNSPECIFIED (3) CAD (coronary artery disease) Code(s): I25.10 - ATHSCL HEART DISEASE OF [place] CORONARY ARTERY W/O ANG PCTRS (4) Cachexia Code(s): R64 - CACHEXIA (5) GERD (gastroesophageal reflux disease) Code(s): K21.9 - GASTRO-ESOPHAGEAL REFLUX DISEASE WITHOUT ESOPHAGITIS (6) HTN (hypertension) Code(s): I10 - ESSENTIAL (PRIMARY) HYPERTENSION (7) Hypercholesterolemia Code(s): E78.0 - PURE HYPERCHOLESTEROLEMIA * DO NOT USE * (8) Impaired gait Code(s): R26.9 - UNSPECIFIED ABNORMALITIES OF GAIT AND MOBILITY (9) Severe malnutrition Code(s): E43 - UNSPECIFIED SEVERE PROTEIN-CALORIE MALNUTRITION (10) Hyponatremia Code(s): E87.1 - HYPO-OSMOLALITY AND HYPONATREMIA Assessment/Plan IV Solu-medrol -tappering per Pulmonary Pulmonary consult is appreciated Continue PT. OOBTC AM labs, monitor electrolytes (Na is trending down,K is trending up). Case was d/w pt's nurse.
[2018-10-23] MEDS ORDERED: guaiFENesin/D-METHORPHAN HB 10 ML UNIT-DOSE CUPS PO PRN (15:44)
[2018-10-23] MEDS: MONTELUKAST NA 10 MG TABLET PO SCH (23:12)
[2018-10-24] MEDS: ALBUTEROL SO4 0.083% IH SOL 2.5 MG/3 ML VIAL.NEB. NEB PRN (03:54)
[2018-10-24] MEDS: ALBUTEROL SO4 0.083% IH SOL 2.5 MG/3 ML VIAL.NEB. NEB SCH ×4 (08:00→20:29)
--- NOTE | 2018-10-24 08:29 | PN ---
Progress Note, Physician Chief Complaint: awake alert NAD no new c/o less cough no SOB - Current Medication List Current Medications: Active Medications Acetaminophen (Tylenol -) 650 mg PO Q8H PRN PRN Reason: PAIN LEVEL 1-5 Albuterol Sulfate (Ventolin 0.083% Nebulizer Soln -) 1 amp NEB Q6H PRN PRN Reason: SHORT OF BREATH/WHEEZING Last Admin: 10/24/18 03:54 Dose: 1 amp Albuterol Sulfate (Ventolin 0.083% Nebulizer Soln -) 1 amp NEB RQID [facility] Last Admin: 10/23/18 21:00 Dose: 1 amp Diltiazem HCl (Cardizem Cd -) 120 mg PO DAILY [facility] Last Admin: 10/23/18 15:41 Dose: 120 mg Dipyridamole/Aspirin (Aggrenox -) 1 combo PO BID [facility] Last Admin: 10/23/18 23:12 Dose: 1 combo Fluticasone Propionate (Flonase -) 2 spray NS DAILY [facility] Last Admin: 10/23/18 10:29 Dose: Not Given Guaifenesin (Robitussin Dm -) 10 ml PO Q4H PRN PRN Reason: COUGH Magnesium Oxide (Mag-Ox -) 400 mg PO BID [facility] Last Admin: 10/23/18 23:12 Dose: 400 mg Methylprednisolone Sodium Succinate (Solu-Medrol -) 40 mg IVPUSH BID [facility] Last Admin: 10/23/18 23:12 Dose: 40 mg Montelukast Sodium (Singulair -) 10 mg PO HS [facility] Last Admin: 10/23/18 23:12 Dose: 10 mg Phenytoin Sodium (Dilantin -) 100 mg PO BID [facility] Last Admin: 10/23/18 23:11 Dose: 100 mg Tiotropium [place] (Spiriva Respimat) 2 puff IH DAILY [facility] Last Admin: 10/23/18 10:27 Dose: 2 puff - Objective Vital Signs: Vital Signs Temperature 97.5 F L 10/23/18 14:15 Pulse Rate 83 10/23/18 14:15 Respiratory Rate 22 H 10/23/18 21:00 Blood Pressure 105/56 L 10/23/18 14:15 O2 Sat by Pulse Oximetry (%) 97 10/23/18 21:00 Constitutional: Yes: No Distress, Calm Eyes: Yes: Conjunctiva Clear HENT: Yes: Atraumatic Neck: Yes: Supple Cardiovascular: Yes: Regular Rate and Rhythm Respiratory: Yes: Rales Gastrointestinal: Yes: Soft. No: Tenderness Genitourinary: No: CVA Tenderness - Left, CVA Tenderness - Right Musculoskeletal: No: Joint Stiffness, Joint Swelling Extremities: No: Cold, Cool, Cyanosis Edema: No Integumentary: No: Rash, Venous Stasis Changes Neurological: Yes: WNL, Alert, Oriented ...Motor Strength: WNL Psychiatric: Yes: WNL, Alert, Oriented. No: Agitated, Suicidal Ideation Labs: CBC, BMP 10/22/18 06:20 10/23/18 06:00 INR, PTT INR 1.07 (0.83-1.09) 10/18/18 15:34 - ....Imaging Other: Report Reviewed Assessment/Plan 72 year old man with a significant past medical history of DVT, COPD (no home O2 ), HTN, HLD, seizure disorder, and GERD who presents with 1 month of shortness of breath and coughing up white phlegm for 1 week. Admitted with acute bronchitis and COPD exac The patient was in [place] prior to this hospitalization (since September 2018) after a R hip fracture. iv steroids, nebs; pulmonary f/u falls decubs DVT pfx will need SNF when better d/w pt and staff
[2018-10-24] MEDS ORDERED: PT OWN MED DRAWER 7, Y5N ONE (09:45)
[2018-10-24] MEDS: MAGNESIUM OXIDE 400 MG TABLET (FP) PO SCH ×2 (09:47→22:27)
[2018-10-24] MEDS: methylPREDNISolone NA SUCC 40 MG/1 ML VIAL IVPUSH SCH ×2 (09:47→22:26)
[2018-10-24] MEDS: ASPIRIN/DIPYRIDAMOLE 25 MG/200 MG CAPSULE (FP) PO SCH ×2 (09:47→22:27)
[2018-10-24] MEDS: FLUTICASONE PROP 0.05% 16 GM NASAL SPRAY NS SCH (09:48)
[2018-10-24] MEDS: TIOTROPIUM BROMIDE 2.5 MCG (SPIRIVA) RESPIMAT INHALER IH SCH (09:48)
[2018-10-24] MEDS: PHENYTOIN NA EXTENDED 100 MG CAPSULE (FP) PO SCH ×2 (09:48→22:27)
[2018-10-24 10:05] LABS: ANION GAP 5 MMOL/L (8-16); BLOOD UREA NITROGEN 23 mg/dL (7-18); CALCIUM 7.9 mg/dL (8.5-10.1); CHLORIDE 99 mmol/L (98-107); CO2 30 mmol/L (21-32); CREATININE 0.4 mg/dL (0.55-1.3); GLUCOSE,RANDOM 73 mg/dL (74-106); MAGNESIUM 2.2 mg/dL (1.8-2.4); POTASSIUM 5.3 mmol/L (3.5-5.1); SODIUM 134 mmol/L (136-145)
--- NOTE | 2018-10-24 11:40 | PN ---
Progress Note (short form) - Note Progress Note: PULMONARY Breathing better today.. Still with cough with whitish sputum. Vital Signs Period Temp Pulse Resp BP Sys/Fernández Pulse Ox Last 24 Hr 97.5 F-97.6 F 69-83 20-22 105-120/56-63 97-98 Gen: mildly tachypneic at rest Heart: RRR Lung: distant breath sounds, no wheezes Abd: soft, nontender Ext: no edema CBC, BMP 10/22/18 06:20 10/24/18 07:30 Active Medications Acetaminophen (Tylenol -) 650 mg PO Q8H PRN PRN Reason: PAIN LEVEL 1-5 Albuterol Sulfate (Ventolin 0.083% Nebulizer Soln -) 1 amp NEB Q6H PRN PRN Reason: SHORT OF BREATH/WHEEZING Last Admin: 10/24/18 03:54 Dose: 1 amp Albuterol Sulfate (Ventolin 0.083% Nebulizer Soln -) 1 amp NEB RQID [facility] Last Admin: 10/23/18 21:00 Dose: 1 amp Diltiazem HCl (Cardizem Cd -) 120 mg PO DAILY [facility] Last Admin: 10/24/18 09:47 Dose: 120 mg Dipyridamole/Aspirin (Aggrenox -) 1 combo PO BID [facility] Last Admin: 10/24/18 09:47 Dose: 1 combo Fluticasone Propionate (Flonase -) 2 spray NS DAILY [facility] Last Admin: 10/24/18 09:48 Dose: 2 sprays Guaifenesin (Robitussin Dm -) 10 ml PO Q4H PRN PRN Reason: COUGH Heparin Sodium (Porcine) (Heparin -) 5,000 unit SQ BID [facility] Magnesium Oxide (Mag-Ox -) 400 mg PO BID [facility] Last Admin: 10/24/18 09:47 Dose: 400 mg Methylprednisolone Sodium Succinate (Solu-Medrol -) 40 mg IVPUSH BID [facility] Last Admin: 10/24/18 09:47 Dose: 40 mg Montelukast Sodium (Singulair -) 10 mg PO [facility] Last Admin: 10/23/18 23:12 Dose: 10 mg Phenytoin Sodium (Dilantin -) 100 mg PO BID [facility] Last Admin: 10/24/18 09:48 Dose: 100 mg Tiotropium [place] (Spiriva Respimat) 2 puff IH DAILY [facility] Last Admin: 10/24/18 09:48 Dose: 2 puff A/P Acute COPD Exacerbation Acute Bronchitis HTN Hyperlipidemia Seizure Disorder GERD - medrol taper, can change steroids to PO prednisone 40mg daily in AM and taper as outpt - inhaled bronchodilators standing and PRN - O2 to keep SpO2 >90% - completed empiric antibiotics - DVT prophylaxis
[2018-10-24] MEDS: HEPARIN NA (PORCINE) 5,000 UNITS/ML 1ML VIAL SQ SCH ×2 (11:58→22:25)
[2018-10-24] MEDS: MONTELUKAST NA 10 MG TABLET PO SCH (22:27)
[2018-10-25] MEDS: ALBUTEROL SO4 0.083% IH SOL 2.5 MG/3 ML VIAL.NEB. NEB PRN (02:10)
[2018-10-25] MEDS: ALBUTEROL SO4 0.083% IH SOL 2.5 MG/3 ML VIAL.NEB. NEB SCH ×4 (07:15→20:36)
[2018-10-25] MEDS: methylPREDNISolone NA SUCC 40 MG/1 ML VIAL IVPUSH SCH (10:41)
[2018-10-25] MEDS: PHENYTOIN NA EXTENDED 100 MG CAPSULE (FP) PO SCH ×2 (10:42→21:37)
[2018-10-25] MEDS: HEPARIN NA (PORCINE) 5,000 UNITS/ML 1ML VIAL SQ SCH ×2 (10:42→21:38)
[2018-10-25] MEDS: ASPIRIN/DIPYRIDAMOLE 25 MG/200 MG CAPSULE (FP) PO SCH ×2 (10:42→21:37)
[2018-10-25] MEDS: TIOTROPIUM BROMIDE 2.5 MCG (SPIRIVA) RESPIMAT INHALER IH SCH (10:44)
[2018-10-25] MEDS: FLUTICASONE PROP 0.05% 16 GM NASAL SPRAY NS SCH (10:44)
[2018-10-25] MEDS: MAGNESIUM OXIDE 400 MG TABLET (FP) PO SCH ×2 (10:52→21:38)
--- NOTE | 2018-10-25 11:42 | PN ---
Progress Note, Physician Chief Complaint: in bed still coughing no CP, brings up a lot of phlegm on IV steroids - change to po? will dw pulm - Current Medication List Current Medications: Active Medications Acetaminophen (Tylenol -) 650 mg PO Q8H PRN PRN Reason: PAIN LEVEL 1-5 Albuterol Sulfate (Ventolin 0.083% Nebulizer Soln -) 1 amp NEB Q6H PRN PRN Reason: SHORT OF BREATH/WHEEZING Last Admin: 10/25/18 02:10 Dose: 1 amp Albuterol Sulfate (Ventolin 0.083% Nebulizer Soln -) 1 amp NEB RQID [facility] Last Admin: 10/25/18 11:20 Dose: 1 amp Diltiazem HCl (Cardizem Cd -) 120 mg PO DAILY [facility] Last Admin: 10/25/18 10:42 Dose: 120 mg Dipyridamole/Aspirin (Aggrenox -) 1 combo PO BID [facility] Last Admin: 10/25/18 10:42 Dose: 1 combo Fluticasone Propionate (Flonase -) 2 spray NS DAILY [facility] Last Admin: 10/25/18 10:44 Dose: Not Given Guaifenesin (Robitussin Dm -) 10 ml PO Q4H PRN PRN Reason: COUGH Heparin Sodium (Porcine) (Heparin -) 5,000 unit SQ BID [facility] Last Admin: 10/25/18 10:42 Dose: 5,000 unit Magnesium Oxide (Mag-Ox -) 400 mg PO BID [facility] Last Admin: 10/25/18 10:52 Dose: 400 mg Methylprednisolone Sodium Succinate (Solu-Medrol -) 40 mg IVPUSH BID [facility] Last Admin: 10/25/18 10:41 Dose: 40 mg Montelukast Sodium (Singulair -) 10 mg PO HS [facility] Last Admin: 10/24/18 22:27 Dose: 10 mg Phenytoin Sodium (Dilantin -) 100 mg PO BID [facility] Last Admin: 10/25/18 10:42 Dose: 100 mg Tiotropium [place] (Spiriva Respimat) 2 puff IH DAILY [facility] Last Admin: 10/25/18 10:44 Dose: 2 puff - Objective Vital Signs: Vital Signs Temperature 97.9 F 10/25/18 07:01 Pulse Rate 77 10/25/18 07:01 Respiratory Rate 20 10/25/18 07:01 Blood Pressure 112/62 10/25/18 07:01 O2 Sat by Pulse Oximetry (%) 100 10/24/18 21:00 Constitutional: Yes: No Distress, Calm Eyes: Yes: Conjunctiva Clear HENT: Yes: Atraumatic Neck: Yes: Supple Cardiovascular: Yes: Regular Rate and Rhythm Respiratory: Yes: Rales, Rhonchi Gastrointestinal: Yes: Soft. No: Tenderness Genitourinary: No: CVA Tenderness - Left, CVA Tenderness - Right Musculoskeletal: No: Joint Stiffness, Joint Swelling Extremities: No: Cold, Cool, Cyanosis Edema: No Integumentary: No: Rash, Venous Stasis Changes Neurological: Yes: WNL, Alert, Oriented ...Motor Strength: WNL Psychiatric: Yes: WNL, Alert, Oriented. No: Agitated, Suicidal Ideation Labs: CBC, BMP 10/22/18 06:20 10/24/18 07:30 INR, PTT INR 1.07 (0.83-1.09) 10/18/18 15:34 - ....Imaging Other: Report Reviewed Assessment/Plan 72 year old man with a significant past medical history of DVT, COPD (no home O2 ), HTN, HLD, seizure disorder, and GERD who presents with 1 month of shortness of breath and coughing up white phlegm for 1 week. Admitted with acute bronchitis and COPD exac. Also severe malnutrition. The patient was in [facility] prior to this hospitalization (since September 2018) after a R hip fracture. iv steroids, nebs; pulmonary f/u falls decubs DVT pfx will need SNF when better pt said he johnnie return to [facility] d/w pt and staff
--- NOTE | 2018-10-25 14:08 | PN ---
Progress Note (short form) - Note Progress Note: PULMONARY Cough with chest congestion Gen: mildly tachypneic at rest Heart: RRR Lung: distant breath sounds, no wheezes Abd: soft, nontender Ext: no edema Active Medications reviewed A/P Acute COPD Exacerbation Acute Bronchitis HTN Hyperlipidemia Seizure Disorder GERD - change steroids to PO prednisone 40mg daily in AM and taper as outpt - inhaled bronchodilators standing and PRN - O2 to keep SpO2 >90% - completed empiric antibiotics - DVT prophylaxis Alejo CLANCY MD
[2018-10-25] MEDS: MONTELUKAST NA 10 MG TABLET PO SCH (21:38)
[2018-10-26] MEDS: ALBUTEROL SO4 0.083% IH SOL 2.5 MG/3 ML VIAL.NEB. NEB PRN (06:30)
[2018-10-26 06:57] LABS: BASO % 0.4 % (0-2.0); EOS % 0.8 % (0-4.5); HEMOGLOBIN 10.7 GM/dL (11.7-16.9); LYMPH % 13.7 % (8-40); MCH 26.6 pg (25.7-33.7); MCHC 32.6 g/dl (32.0-35.9); MEAN CELL VOLUME 81.8 fl (80-96); MEAN PLT VOLUME 8.4 fl (7.5-11.1); MONO % 9.9 % (3.8-10.2); NEUT % 75.2 % (42.8-82.8); PLATELET COUNT 240 K/MM3 (134-434); RBC 4.03 M/mm3 (4.00-5.60); RDW 17.8 % (11.9-15.9); WHITE BLOOD COUNT 13.5 K/mm3 (4.0-10.0)
[2018-10-26 07:36] LABS: ALBUMIN 3.4 g/dl (3.4-5.0); ALK PHOS 108 U/L (45-117); ANION GAP 4 MMOL/L (8-16); BILIRUBIN,TOTAL 0.4 mg/dL (0.2-1); BLOOD UREA NITROGEN 26 mg/dL (7-18); CALCIUM 8.3 mg/dL (8.5-10.1); CHLORIDE 97 mmol/L (98-107); CO2 32 mmol/L (21-32); CREATININE 0.5 mg/dL (0.55-1.3); GLUCOSE,RANDOM 64 mg/dL (74-106); POTASSIUM 5.3 mmol/L (3.5-5.1); SGOT/AST 11 U/L (15-37); SGPT/ALT 29 U/L (13-61); SODIUM 133 mmol/L (136-145); TOT PROT 6.5 g/dl (6.4-8.2)
--- NOTE | 2018-10-26 08:16 | DS ---
Physical Examination Vital Signs: Vital Signs Temperature 97.6 F 10/26/18 06:00 Pulse Rate 76 10/26/18 06:00 Respiratory Rate 20 10/26/18 06:00 Blood Pressure 127/49 L 10/26/18 06:00 O2 Sat by Pulse Oximetry (%) 97 10/25/18 21:00 Findings/Remarks: in bed awake alert NAD VSS afebrile no CP/SOB less cough less sputum; had one episode of loose stools no blood no abdominal pain no N/V if persistent to get stools for CDiff (s/p antibiotics in hospital) agreed to go back to [facility]; is on po steroids; WBC 13K (sec to steoirds?) and K 5.3 (will order 1 kayexalate) f/u labs in [facility] in 2-3 days d/w pt and staff Constitutional: Yes: No Distress, Calm Eyes: Yes: Conjunctiva Clear HENT: Yes: Atraumatic Neck: Yes: Supple Cardiovascular: Yes: Regular Rate and Rhythm Respiratory: Yes: CTA Bilaterally Gastrointestinal: Yes: Soft. No: Tenderness Renal/: No: CVA Tenderness - Left, CVA Tenderness - Right Musculoskeletal: No: Joint Stiffness, Joint Swelling Extremities: No: Cold, Cool, Cyanosis Edema: No Integumentary: No: Pressure Ulcer, Rash, Venous Stasis Changes Neurological: Yes: WNL, Alert, Oriented ...Motor Strength: WNL Psychiatric: Yes: WNL, Alert, Oriented. No: Agitated, Suicidal Ideation Labs: CBC, BMP 10/26/18 06:00 10/26/18 06:00 Discharge Summary Reason For Visit: CHRONIC OBSTRUCTIVE PULMONARY DISEASE Current Active Problems Acute exacerbation of chronic obstructive pulmonary disease (COPD) (Acute) Hyponatremia (Acute) Severe malnutrition (Acute) Procedures: Principal: admitted with COPD exac and acute bronchitis Other Procedures: treated with IV sterodis, IV antibiotics; seen by pulmonary dr Mo; Hospital Course: improved with above; developed one time diarrhea (is on Mag po); if recurrent to check stools for CDiff (s/p ATB in [place]); transfer to [facility] for PT rehab Condition: Fair - Instructions Diet, Activity, Other Instructions: f/u labs CBC CMP in 2-3 days; taper steroids every other day; pulmonary f/u dr Mo in [place]; if persistent diarrhea send CDiff stools; PT rehab; falls PFX Referrals: Joshua Durán MD [Staff Physician] - Flex Mo MD [Staff Physician] - Disposition: LONG TERM FACILITY - Home Medications Comprehensive Discharge Medication List: Ambulatory Orders Esomeprazole Mag Trihydrate [Nexium] 40 mg PO DAILY 06/11/14 Phenytoin Na Extended [Dilantin -] 100 mg PO BID 06/11/14 Tiotropium [place] [Spiriva] 1 inh PO DAILY 06/11/14 Diltiazem HCl [Dilacor Xr] 120 mg PO DAILY #120 cap.er.deg 06/15/14 Montelukast Na [Singulair -] 10 mg PO HS #90 tablet 06/15/14 Simvastatin [Zocor -] 20 mg PO HS #90 06/15/14 Fluticasone Prop 0.05% Nasal [Flonase -] 2 spray NS DAILY #1 spray MDD 2 Albuterol 0.083% Nebulizer [place] [Ventolin 0.083% Nebulizer Soln -] 1 amp NEB Q6H PRN amp 09/06/18 Aspirin/Dipyridamole [Aggrenox -] 1 combo PO BID capsule 09/06/18 Magnesium Oxide [Mag-Ox -] 400 mg PO BID tablet 09/06/18 Acetaminophen [Tylenol .Regular Strength -] 650 mg PO Q8H 10/18/18 Albuterol 0.083% Nebulizer [place] [Ventolin 0.083% Nebulizer Soln -] 1 amp NEB RQID amp 10/25/18 Guaifenesin Dm [Robitussin Dm -] 10 ml PO Q4H PRN cup 10/25/18 Heparin - 5,000 unit SQ BID vial 10/25/18 predniSONE [Deltasone -] 40 mg PO DAILY #10 tablet 10/25/18
[2018-10-26] MEDS: ALBUTEROL SO4 0.083% IH SOL 2.5 MG/3 ML VIAL.NEB. NEB SCH ×2 (08:19→12:04)
[2018-10-26] MEDS ORDERED: SODIUM POLYSTYRENE SULFONATE 15 GM/60 ML BOTTLE PO ONE (08:30)
[2018-10-26] MEDS ORDERED: PT OWN MED DRAWER 7, Y5N ONE ×2 (09:18→09:48)
[2018-10-26] MEDS: ASPIRIN/DIPYRIDAMOLE 25 MG/200 MG CAPSULE (FP) PO SCH (09:51)
[2018-10-26] MEDS: HEPARIN NA (PORCINE) 5,000 UNITS/ML 1ML VIAL SQ SCH (09:51)
[2018-10-26] MEDS: PHENYTOIN NA EXTENDED 100 MG CAPSULE (FP) PO SCH (09:52)
[2018-10-26] MEDS: MAGNESIUM OXIDE 400 MG TABLET (FP) PO SCH (09:53)
[2018-10-26] MEDS: FLUTICASONE PROP 0.05% 16 GM NASAL SPRAY NS SCH (09:57)
[2018-10-26] MEDS: TIOTROPIUM BROMIDE 2.5 MCG (SPIRIVA) RESPIMAT INHALER IH SCH (09:57)
[2018-10-26] MEDS ORDERED: predniSONE 20 MG TABLET (UD) PO SCH (10:00)
[2018-10-26 11:02] VITALS: BP 118/60; PULSE 84; TEMP 97.4
== END 2018-10-26 13:06 | DRG 190 ==
LOC: JER 13:09 → JERBED 17:35 → J5S 10-19 03:53
PROVIDERS: ADMIT Specialist; ATTEND Specialist
DX: J44.1 Chronic obstructive pulmonary disease with (acute) exacerbation (principal); E43 Unspecified severe protein-calorie malnutrition; R64 Cachexia; Z68.1 Body mass index [BMI] 19.9 or less, adult; E87.1 Hypo-osmolality and hyponatremia; I10 Essential (primary) hypertension; E78.5 Hyperlipidemia, unspecified; K21.9 Gastro-esophageal reflux disease without esophagitis; G40.909 Epilepsy, unspecified, not intractable, without status epilepticus; I25.10 Atherosclerotic heart disease of native coronary artery without angina pectoris; J20.9 Acute bronchitis, unspecified; R26.9 Unspecified abnormalities of gait and mobility; J06.9 Acute upper respiratory infection, unspecified; D64.9 Anemia, unspecified; J44.0 Chronic obstructive pulmonary disease with (acute) lower respiratory infection; Z95.5 Presence of coronary angioplasty implant and graft; Z86.718 Personal history of other venous thrombosis and embolism
CPT/HCPCS: 36415; 71045-TC-FY; 80048; 80053; 82550; 82803; 83735; 83880; 84484; 85025; 85027; 85379; 85610; 85730; 87804; 93005; 93010; 94640; 97116-GP; 97161-GP; 99285-25; J1644

== ENCOUNTER 2018-12-31 23:33 | Inpatient (IN) | payer OTHER ==
[2018-12-31] MEDS ORDERED: ALBUTEROL SO4 2.5/IPRATROPIUM 0.5 INH SOL 3 ML VIAL.NEB. NEB ONE (23:40)
[2018-12-31] MEDS ORDERED: TERBUTALINE SULFATE 1 MG/1 ML VIAL SQ ONE (23:47)
[2018-12-31] MEDS ORDERED: MAGNESIUM 1GM/D5W - 2 GM/200 ML IVPB IVPB ONE (23:48)
[2019-01-01] MEDS ORDERED: TERBUTALINE SULFATE 1 MG/1 ML VIAL SQ ONE ×2 (00:01→01:12)
[2019-01-01] MEDS ORDERED: MAGNESIUM SULF 50% (8.12 MEQ/2 ML-1 GM VIAL) IVPB ONE (00:01)
--- NOTE | 2019-01-01 00:12 | PDOC ---
Documentation entered by Nathaniel Steen SCRIBE, acting as scribe for Vane Almeida MD. Vaen Almeida MD: This documentation has been prepared by the Celsa nguyen Nirvannie, SCRIBE, under my direction and personally reviewed by me in its entirety. I confirm that the documentation accurately reflects all work, treatment, procedures, and medical decision making performed by me. Attending Attestation - Resident Resident Name: Johanne Queen - ED Attending Attestation I have performed the following: I have examined & evaluated the patient, The case was reviewed & discussed with the resident, I agree w/resident's findings & plan - HPI HPI: 12/31/18 23:57 The patient is a 73 year old male, with a significant past medical history of malnutrition, DVT, COPD (on home 2L O2), CHF, CAD, HTN, HLD, seizure disorder, GERD, right hip repair in September 2018, who presents to the emergency department from [facility] with, respiratory distress. As per EMS, patient was at his assisted at which time desaturated 86%. While en route, patient was given Decadron and 3 nebulizer treatments. Allergies: NKDA - Physicial Exam PE: 01/01/19 01:38 GENERAL: Awake, alert, and fully oriented, in no acute distress HEAD: No signs of trauma EYES: PERRLA, EOMI, sclera anicteric, conjunctiva clear NECK: Normal ROM, supple, no lymphadenopathy, JVD, or masses LUNGS: +Decreased breath sounds blt. Minimal wheezing. Speaking in full sentences. HEART: Regular rate and rhythm, normal S1 and S2, no murmurs, rubs or gallops ABDOMEN: Soft, nontender, normoactive bowel sounds. No guarding, no rebound. No masses EXTREMITIES: Normal range of motion, no edema. No clubbing or cyanosis. No cords, erythema, or tenderness NEUROLOGICAL: Cranial nerves II through XII grossly intact. Alert to person, place, and time. SKIN: Warm, Dry, normal turgor, no rashes or lesions noted. - Medical Decision Making 01/01/19 02:41 Pt comes with COPD; RLL pneumonia; SOB. He is alert and awake and refusing adamantly ETT, so he was started on BiPAP and he is doing well on the BiPAP. Pt will be admitted to the hospitalist for SOB/pneumonia/ cachexia and failure to thrive.
[2019-01-01 00:27] LABS: ARTERIAL BLD GAS O2 SATURATION 99.6 % (95-98); ARTERIAL BLOOD GAS BASE EXCESS 3.7 meq/l (-2-2); ARTERIAL BLOOD GAS PCO2 44.1 mmHg (35-45); ARTERIAL BLOOD GAS PO2 232 mmHg (80-105); ARTERIAL BLOOD GAS pH 7.42 (7.35-7.45); CARBOXYHEMOGLOBIN 0.9 % (0-2)
--- NOTE | 2019-01-01 00:37 | PDOC ---
History of Present Illness - General Chief Complaint: Shortness of Breath Stated Complaint: DIFF. BREATHING Time Seen by Provider: 12/31/18 23:52 History Source: Patient, Skilled Nursing Records, Old Records - History of Present Illness Initial Comments: 01/01/19 00:39 Pt is a 73yo M with PMH of CAD s/p stent, COPD (on 2L O2), CHF, HTN, HLD BIBA from [facility] for respiratory distress. Per EMS, pt was saturating in low 80s at around 6pm. Pt was given 2 duoneb treatments and at around 10pm, pt had no change in respiratory status. EMS was called. Pt would desaturate to high 70s on RA. Pt was given 10mg Decadron IM and combivent treatment and placed on CPAP (saturating at 90). Pt AOx3 at baseline and per EMS, pt was not answering questions but after CPAP, pt seemed more responsive. ' *unable to obtain information from pt given that he is on CPAP and giving 1 word responses. However pt able to answer, and declined intubation. PMD: Androne PMH: see hpi PSH: see hpi Meds: see med rec Allergies: nkda Past History - Past Medical History Allergies/Adverse Reactions: Allergies Allergy/AdvReac Type Severity Reaction Status Date / Time No Known Drug Allergies Allergy Verified 01/01/19 02:47 Home Medications: Ambulatory Orders Phenytoin Na Extended [Dilantin -] 100 mg PO BID 06/11/14 Diltiazem HCl [Dilacor Xr] 120 mg PO DAILY #120 cap.er.deg 06/15/14 Montelukast Na [Singulair -] 10 mg PO HS #90 tablet 06/15/14 Simvastatin [Zocor -] 20 mg PO HS #90 06/15/14 Albuterol 0.083% Nebulizer Arlyn [Ventolin 0.083% Nebulizer Soln -] 1 amp NEB Q6H PRN amp 09/06/18 Magnesium Oxide [Mag-Ox -] 400 mg PO BID tablet 09/06/18 Acetaminophen [Tylenol .Regular Strength -] 650 mg PO Q8H 10/18/18 Albuterol 0.083% Nebulizer Arlyn [Ventolin 0.083% Nebulizer Soln -] 1 amp NEB RQID amp 10/25/18 Guaifenesin Dm [Robitussin Dm -] 10 ml PO Q4H PRN cup 10/25/18 predniSONE [Deltasone -] 40 mg PO DAILY #10 tablet 10/25/18 Anemia: No Cardiac Disorders: Yes (CAD s/p PCI stent) COPD: Yes DVT: No Dialysis: No GI Disorders: Yes (GERD) HTN: Yes Hypercholesterolemia: Yes Kidney Stones: No Seizures: Yes - Surgical History Orthopedic Surgery: Yes (rt total hip) - Immunization History Immunization Up to Date: Yes - Suicide/Smoking/Psychosocial Hx Smoking Status: No Smoking History: Unknown if ever smoked Have you smoked in the past 12 months: No Number of Cigarettes Smoked Daily: 0 If you are a former smoker, when did you quit?: 14 years 'Breaking Loose' booklet given: 02/04/16 Hx Alcohol Use: No Drug/Substance Use Hx: No Substance Use Type: None Hx Substance Use Treatment: No Review of Systems - Review of Systems Able to Perform ROS?: No *Physical Exam - Vital Signs Last Vital Signs Temp Pulse Resp BP Pulse Ox 110 H 24 H 141/99 90 L 12/31/18 23:35 12/31/18 23:35 12/31/18 23:35 12/31/18 23:35 - Physical Exam General Appearance: Yes: Appropriately Dressed, Severe Distress, Thin HEENT: positive: EOMI, [place] Neck: positive: Trachea midline, Supple. negative: Lymphadenopathy (R), Lymphadenopathy (L) Respiratory/Chest: positive: Respiratory Distress, Accessory Muscle Use, Labored Respiration, Rapid RR, Rhonchi, Wheezing. negative: Lungs Clear, Normal Breath Sounds Cardiovascular: positive: S1, S2, Tachycardia. negative: Edema, JVD, Murmur Vascular Pulses: Carotid (R): 2+, Carotid (L): 2+, Dorsalis-Pedis (R): 2+, Doralis-Pedis (L): 2+ Gastrointestinal/Abdominal: positive: Normal Bowel Sounds, Soft. negative: Tender Musculoskeletal: negative: CVA Tenderness Extremity: positive: Normal Capillary Refill, Swelling (edema to ankles bilaterally) Integumentary: positive: Normal Color, Dry, Warm Neurologic: positive: silk printer II-XII NML intact, Fully Oriented, Alert, Normal Mood/ Affect, Normal Response, Motor Strength 5/5 ED Treatment Course - LABORATORY CBC & Chemistry Diagram: 01/01/19 00:00 01/01/19 00:00 - ADDITIONAL ORDERS Additional order review: Laboratory Results 01/01/19 00:10 Anticoagulation Therapy No Result Required. O2 Delivery Device No Result Required. Oxygen Flow Rate No Result Required. Vent Mode No Result Required. Vent Rate No Result Required. Mechanical Rate No Result Required. Pressure Support Vent No Result Required. - RADIOLOGY Radiology Studies Ordered: Category Date Time Status CHEST X-RAY PORTABLE* [RAD] Stat Radiology 01/01/19 12:00 Taken Medical Decision Making - Critical Care Time Total Critical Care Time (minutes): 40 Critical Care Statement: The care of this patient involved high complexity decision making to prevent further life threatening deterioration of the patient 's condition and/or to evaluate & treat vital organ system(s) failure or risk of failure. - Medical Decision Making 01/01/19 00:44 Pt is a 73yo M with PMH of CAD s/p stent, COPD (on 2L O2), CHF, HTN, HLD BIBA from [facility] for respiratory distress. Per EMS, pt was saturating in low 80s at around 6pm. Pt was given 2 duoneb treatments and at around 10pm, pt had no change in respiratory status. EMS was called. Pt would desaturate to high 70s on RA. Pt was given 10mg Decadron IM and combivent treatment and placed on CPAP (saturating at 90). Pt AOx3 at baseline and per EMS, pt was not answering questions but after CPAP, pt seemed more responsive. ' *unable to obtain information from pt given that he is on CPAP and giving 1 word responses. However pt able to answer, and declined intubation. Vitals: tachycardic, tachypneic, 90% CPAP PE: diffuse wheezing/rales/rhonci, accessory muscle use. Ddx includes but not limited to: pt placed on Bipap immediately upon arrival. sepsis w/u with abg. -cxr -mg, duoneb Pt is difficutl stick and has 20G in R AC however arms are contracted and pt unable to get medications. CXR does not show any infiltrates or consolidations per my read. pt saturating well on BiPAP 100% with HR in high 90s as compared to 120s before. will need admission. Pt does not have paperwork regarding code status. Nephew is health care proxy and is at bedside 01/01/19 06:11 labs show white count of 17. trop negative, bnp 200s. ABG does not show CO2 retention, not acidodic. cxr shows maybe an infiltrate at RLLB. -levaquin -fluids (elevated lac, will repeat after fluids) pt stable for med/surg. admitted to Dr Durán who accepted pt. *DC/Admit/Observation/Transfer Diagnosis at time of Disposition: Respiratory distress - Discharge Dispostion Decision to Admit order: Yes - Referrals - Patient Instructions - Post Discharge Activity
[2019-01-01 00:38] LABS: ALLENS TEST POSITIVE
[2019-01-01 00:48] LABS: BASO % 0.2 % (0-2.0); HEMATOCRIT 41.5 % (35.4-49); HEMOGLOBIN 12.9 GM/dL (11.7-16.9); LYMPH % 3.6 % (8-40); MCH 25.8 pg (25.7-33.7); MEAN CELL VOLUME 83.2 fl (80-96); MEAN PLT VOLUME 10.1 fl (7.5-11.1); MONO % 8.3 % (3.8-10.2); NEUT % 87.9 % (42.8-82.8); PLATELET COUNT 148 K/MM3 (134-434); RBC 4.99 M/mm3 (4.00-5.60); RDW 17.1 % (11.9-15.9)
[2019-01-01 01:06] LABS: INR 1.1 (0.83-1.09)
[2019-01-01 01:09] LABS: ACTIVATED PTT 38.6 SECONDS (25.2-36.5)
[2019-01-01] MEDS ORDERED: morphine CARPU-JECT 2 MG/1 ML DISP.SYRIN IVPUSH ONE (01:39)
[2019-01-01] MEDS ORDERED: SODIUM CHLORIDE 0.9% 500 ML INFUS.BAG IV ONE (01:40)
[2019-01-01] MEDS ORDERED: morphine SULFATE 4 MG/ML VIAL ONE (01:50)
[2019-01-01 02:10] LABS: ALBUMIN 3.7 g/dl (3.4-5.0); ALK PHOS 170 U/L (45-117); ANION GAP 10 MMOL/L (8-16); BILIRUBIN,TOTAL 0.6 mg/dL (0.2-1); BLOOD UREA NITROGEN 12 mg/dL (7-18); CALCIUM 8.8 mg/dL (8.5-10.1); CHLORIDE 98 mmol/L (98-107); CO2 29 mmol/L (21-32); CREATININE 0.5 mg/dL (0.55-1.3); GLUCOSE,RANDOM 93 mg/dL (74-106); SGOT/AST 23 U/L (15-37); SGPT/ALT 21 U/L (13-61); SODIUM 136 mmol/L (136-145); TOT PROT 7.7 g/dl (6.4-8.2)
[2019-01-01] MEDS ORDERED: CEFTRIAXONE 1 GM in DEXTROSE 5%-WATER - 50 ML IVPB ONE (07:11)
[2019-01-01] MEDS ORDERED: PT OWN MED DRAWER 7, Y5N ONE ×2 (09:36→11:08)
[2019-01-01] MEDS ORDERED: cefTRIAXone SODIUM 1 GM VIAL ONE (09:37)
[2019-01-01] MEDS ORDERED: DEXTROSE 5%-WATER - 50 ML IVPB ONE (09:37)
[2019-01-01] MEDS: MAGNESIUM OXIDE 400 MG TABLET (FP) PO SCH ×2 (09:40→22:16)
[2019-01-01] MEDS: PHENYTOIN NA EXTENDED 100 MG CAPSULE (FP) PO SCH ×2 (09:44→22:16)
[2019-01-01] MEDS: AZITHROMYCIN IVPB 500 MG/250 ML BAG IVPB SCH (10:47)
[2019-01-01 11:05] LABS: HEMATOCRIT 35.8 % (35.4-49); HEMOGLOBIN 11.3 GM/dL (11.7-16.9); MCH 25.9 pg (25.7-33.7); MCHC 31.7 g/dl (32.0-35.9); MEAN CELL VOLUME 81.6 fl (80-96); MEAN PLT VOLUME 9.7 fl (7.5-11.1); PLATELET COUNT 115 K/MM3 (134-434); RBC 4.38 M/mm3 (4.00-5.60); RDW 16.8 % (11.9-15.9); WHITE BLOOD COUNT 15.6 K/mm3 (4.0-10.0)
[2019-01-01 11:48] LABS: ALBUMIN 2.8 g/dl (3.4-5.0); ALK PHOS 127 U/L (45-117); ANION GAP 6 MMOL/L (8-16); BILIRUBIN,TOTAL 0.3 mg/dL (0.2-1); BLOOD UREA NITROGEN 11 mg/dL (7-18); CALCIUM 8.4 mg/dL (8.5-10.1); CHLORIDE 101 mmol/L (98-107); CO2 30 mmol/L (21-32); CREATININE 0.5 mg/dL (0.55-1.3); GLUCOSE,RANDOM 184 mg/dL (74-106); POTASSIUM 3.9 mmol/L (3.5-5.1); SGOT/AST 7 U/L (15-37); SGPT/ALT 14 U/L (13-61); SODIUM 137 mmol/L (136-145); TOT PROT 6.1 g/dl (6.4-8.2)
--- NOTE | 2019-01-01 13:28 | CON.PULM ---
Consult Consult Specialty:: PULM/CCM Referred by:: EVELIA Reason for Consultation:: SOB - History of Present Illness Chief Complaint: SOB History of Present Illness: 73 M, well known from multiple previous admissions. CAD s/p stent, O2 dependent COPD on 2L NC due to previous smoking, CHF, HTN, and HLD. Admitted from the SNF due to respiratory distress. As per the EMS record, he was saturating in low 80s at around 6pm. He was given 2 duoneb treatments with no improvement. Placed on NIPPV support with some improvement in his breathing. No travel history or sick contacts. No hemoptysis. CXR: chronic changes, no acute process noted - History Source History Provided By: Patient Limitations to Obtaining History: Poor Historian - Past Medical History Cardio/Vascular: Yes: CAD (s/p PCI with cardiac stent), HTN, Hyperlipdemia Pulmonary: Yes: COPD, O2 Dependent, Pneumonia. No: Previously Intubated, Pulmonary Embolus, Pulmonary Fibrosis, Sleep Apnea Gastrointestinal: Yes: GERD - Past Surgical History Past Surgical History: Yes: Joint Replacement - Alcohol/Substance Use Hx Alcohol Use: No - Smoking History Smoking history: Unknown if ever smoked Have you smoked in the past 12 months: No Aproximately how many cigarettes per day: 0 If you are a former smoker, when did you quit?: 14 years - Social History History of Recent Travel: No Home Medications - Allergies Allergies/Adverse Reactions: Allergies Allergy/AdvReac Type Severity Reaction Status Date / Time No Known Drug Allergies Allergy Verified 01/01/19 02:47 - Home Medications Home Medications: Ambulatory Orders Phenytoin Na Extended [Dilantin -] 100 mg PO BID 06/11/14 Diltiazem HCl [Dilacor Xr] 120 mg PO DAILY #120 cap.er.deg 06/15/14 Montelukast Na [Singulair -] 10 mg PO HS #90 tablet 06/15/14 Simvastatin [Zocor -] 20 mg PO HS #90 06/15/14 Albuterol 0.083% Nebulizer Arlyn [Ventolin 0.083% Nebulizer Soln -] 1 amp NEB Q6H PRN amp 09/06/18 Magnesium Oxide [Mag-Ox -] 400 mg PO BID tablet 09/06/18 Acetaminophen [Tylenol .Regular Strength -] 650 mg PO Q8H 10/18/18 Albuterol 0.083% Nebulizer Arlyn [Ventolin 0.083% Nebulizer Soln -] 1 amp NEB RQID amp 10/25/18 Guaifenesin Dm [Robitussin Dm -] 10 ml PO Q4H PRN cup 10/25/18 predniSONE [Deltasone -] 40 mg PO DAILY #10 tablet 10/25/18 Review of Systems - Review of Systems Constitutional: reports: Lethargy, Malaise, Weakness. denies: Chills, Fever, Night Sweats, Unintentional Wgt. Loss Eyes: reports: No Symptoms HENT: reports: No Symptoms Neck: reports: No Symptoms Cardiovascular: reports: Shortness of Breath. denies: Chest Pain, Edema, Palpitations Respiratory: reports: Cough, SOB, SOB on Exertion, Wheezing. denies: Hemoptysis , Orthopnea, Snoring Gastrointestinal: reports: No Symptoms Genitourinary: reports: No Symptoms Breasts: reports: No Symptoms Reported Musculoskeletal: reports: No Symptoms Integumentary: reports: No Symptoms Neurological: reports: No Symptoms Endocrine: reports: No Symptoms Hematology/Lymphatic: reports: No Symptoms Psychiatric: reports: No Symptoms Physical Exam Vital Sings: Vital Signs Temperature 97.6 F 01/01/19 09:50 Pulse Rate 78 01/01/19 09:25 Respiratory Rate 20 01/01/19 09:25 Blood Pressure 119/74 01/01/19 09:25 O2 Sat by Pulse Oximetry (%) 97 01/01/19 09:40 Constitutional: Yes: Mild Distress, Thin Eyes: Yes: Conjunctiva Clear, EOM Intact HENT: Yes: Atraumatic, Normocephalic Neck: Yes: Supple, Trachea Midline Cardiovascular: Yes: Tachycardia Respiratory: Yes: Accessory Muscle Use, Cough, Diminished, On BiPap, Rhonchi, SOB, Tachypnea, Wheezes. No: Rales, SOB on Exertion, Stridor ...Inspection: Yes: WNL ...Clubbing: No Gastrointestinal: Yes: Normal Bowel Sounds, Soft Musculoskeletal: Yes: WNL Extremities: Yes: WNL Edema: No Peripheral Pulses WNL: Yes Integumentary: Yes: WNL Neurological: Yes: Alert, Oriented ...Motor Strength: WNL Psychiatric: Yes: WNL, Alert, Oriented Labs: CBC, BMP 01/01/19 10:45 01/01/19 10:45 ABG Results ABG pH 7.42 (7.35-7.45) 01/01/19 00:10 ABG pCO2 at Pt Temp 44.1 mmHg (35-45) 01/01/19 00:10 ABG pO2 at Pt Temp 232 mmHg (80-105) H 01/01/19 00:10 ABG HCO3 28.2 mmol/L (22-27) H 01/01/19 00:10 ABG O2 Sat (Measured) 99.6 % (95-98) H 01/01/19 00:10 ABG O2 Content 17.3 % vol (15-22) 01/01/19 00:10 ABG Base Excess 3.7 meq/l (-2-2) H 01/01/19 00:10 Imaging - Results Chest X-ray: Report Reviewed, Image Reviewed Problem List - Problems (1) Respiratory distress Code(s): R06.00 - DYSPNEA, UNSPECIFIED (2) Acute chronic obstructive pulmonary disease with respiratory failure Code(s): J96.00 - ACUTE RESPIRATORY FAILURE, UNSP W HYPOXIA OR HYPERCAPNIA; J44.9 - CHRONIC OBSTRUCTIVE PULMONARY DISEASE, UNSPECIFIED (3) Acute exacerbation of chronic obstructive pulmonary disease (COPD) Code(s): J44.1 - CHRONIC OBSTRUCTIVE PULMONARY DISEASE W (ACUTE) EXACERBATION (4) Acute hypoxemic respiratory failure Code(s): J96.01 - ACUTE RESPIRATORY FAILURE WITH HYPOXIA (5) Anemia Code(s): D64.9 - ANEMIA, UNSPECIFIED (6) CAD (coronary artery disease) Code(s): I25.10 - ATHSCL HEART DISEASE OF [place] CORONARY ARTERY W/O ANG PCTRS (7) COPD (chronic obstructive pulmonary disease) Code(s): J44.9 - CHRONIC OBSTRUCTIVE PULMONARY DISEASE, UNSPECIFIED (8) CVA (cerebral vascular accident) Code(s): I63.9 - CEREBRAL INFARCTION, UNSPECIFIED (9) Cachexia Code(s): R64 - CACHEXIA (10) Cough Code(s): R05 - COUGH (11) HTN (hypertension) Code(s): I10 - ESSENTIAL (PRIMARY) HYPERTENSION (12) Hypercholesterolemia Code(s): E78.0 - PURE HYPERCHOLESTEROLEMIA * DO NOT USE * (13) Hypoxia Code(s): R09.02 - HYPOXEMIA (14) Lung nodule Code(s): R91.1 - SOLITARY PULMONARY NODULE (15) Pulmonary hypertension Code(s): I27.2 - OTHER SECONDARY PULMONARY HYPERTENSION * DO NOT USE * (16) Severe malnutrition Code(s): E41 - NUTRITIONAL MARASMUS (17) Seizure disorder Code(s): G40.909 - EPILEPSY, UNSP, NOT INTRACTABLE, WITHOUT STATUS EPILEPTICUS Assessment/Plan VM O2 BD TX IVF NIPPV support as needed Medrol Noted Zithromax Aspiration precautions IV F Will follow Dr Garay
--- NOTE | 2019-01-01 13:54 | HP ---
Admitting History and Physical - Primary Care Physician PCP: Joshua Durán - Admission Chief Complaint: Cough. SOB History of Present Illness: Pt with known Hx/o COPD, CAD in [facility] reports progressive cough and sputum production and SOB over the last 2-3 weeks. Yesterday he felt SOB, O2 sat was 86% and pt was transferred to ER In ER pt was started o BIPAP, IV abtx. History Source: Patient - Past Medical History Cardiovascular: Yes: CAD (s/p PCI with cardiac stent), HTN, Hyperlipdemia Pulmonary: Yes: COPD, O2 Dependent, Pneumonia Gastrointestinal: Yes: GERD - Past Surgical History Past Surgical History: Yes: Joint Replacement - Smoking History Smoking history: Unknown if ever smoked Have you smoked in the past 12 months: No Aproximately how many cigarettes per day: 0 If you are a former smoker, when did you quit?: 14 years - Alcohol/Substance Use Hx Alcohol Use: No - Social History History of Recent Travel: No Home Medications - Allergies Allergies/Adverse Reactions: Allergies Allergy/AdvReac Type Severity Reaction Status Date / Time No Known Drug Allergies Allergy Verified 01/01/19 02:47 - Home Medications Home Medications: Ambulatory Orders Phenytoin Na Extended [Dilantin -] 100 mg PO BID 06/11/14 Diltiazem HCl [Dilacor Xr] 120 mg PO DAILY #120 cap.er.deg 06/15/14 Montelukast Na [Singulair -] 10 mg PO HS #90 tablet 06/15/14 Simvastatin [Zocor -] 20 mg PO HS #90 06/15/14 Albuterol 0.083% Nebulizer Arlyn [Ventolin 0.083% Nebulizer Soln -] 1 amp NEB Q6H PRN amp 09/06/18 Magnesium Oxide [Mag-Ox -] 400 mg PO BID tablet 09/06/18 Acetaminophen [Tylenol .Regular Strength -] 650 mg PO Q8H 10/18/18 Albuterol 0.083% Nebulizer Arlyn [Ventolin 0.083% Nebulizer Soln -] 1 amp NEB RQID amp 10/25/18 Guaifenesin Dm [Robitussin Dm -] 10 ml PO Q4H PRN cup 10/25/18 predniSONE [Deltasone -] 40 mg PO DAILY #10 tablet 10/25/18 Review of Systems - Review of Systems Constitutional: denies: Chills, Fever Eyes: denies: Blurred Vision, Double Vision HENT: denies: Ear Discharge, Ear Pain, Nasal Congestion, Throat Pain Neck: denies: Stiffness, Tenderness Cardiovascular: denies: Chest Pain, Edema Respiratory: reports: Cough, SOB, Wheezing Gastrointestinal: denies: Abdominal Pain, Nausea, Vomiting Genitourinary: denies: Burning, Discharge, Dysuria Integumentary: denies: Bruising, Rash Neurological: denies: Change in Speech, Confusion, Numbness Endocrine: denies: Excessive Sweating, Intolerance to Cold Hematology/Lymphatic: denies: Easily Bruised, Excessive Bleeding Psychiatric: denies: Altered Sleep Pattern, Depression Physical Examination Vital Signs: Vital Signs Temperature 97.6 F 01/01/19 09:50 Pulse Rate 78 01/01/19 09:25 Respiratory Rate 20 01/01/19 09:25 Blood Pressure 119/74 01/01/19 09:25 O2 Sat by Pulse Oximetry (%) 97 01/01/19 09:40 Constitutional: Yes: Well Nourished, No Distress Eyes: Yes: Conjunctiva Clear, EOM Intact HENT: No: Epistaxis, Rhinnorhea Neck: Yes: Trachea Midline. No: Lymphadenopathy Cardiovascular: Yes: Regular Rate and Rhythm, S1, S2 Respiratory: Yes: Regular, CTA Bilaterally. No: Rales Gastrointestinal: Yes: Normal Bowel Sounds, Soft. No: Tenderness ...Rectal Exam: No: Deferred Renal/: No: CVA Tenderness - Left, CVA Tenderness - Right Musculoskeletal: No: Joint Stiffness, Joint Swelling Edema: No Neurological: Yes: Alert, Oriented, Other (motor ad sensory is symmetric in UE/ LE/ face) Psychiatric: Yes: Alert, Oriented Labs: CBC, BMP 01/01/19 10:45 01/01/19 10:45 Imaging - Results Chest X-ray: Report Reviewed Problem List - Problems (1) Respiratory distress Code(s): R06.00 - DYSPNEA, UNSPECIFIED (2) Acute exacerbation of chronic obstructive pulmonary disease (COPD) Code(s): J44.1 - CHRONIC OBSTRUCTIVE PULMONARY DISEASE W (ACUTE) EXACERBATION (3) CAD (coronary artery disease) Code(s): I25.10 - ATHSCL HEART DISEASE OF [place] CORONARY ARTERY W/O ANG PCTRS (4) CVA (cerebral vascular accident) Code(s): I63.9 - CEREBRAL INFARCTION, UNSPECIFIED (5) Cachexia Code(s): R64 - CACHEXIA (6) HLD (hyperlipidemia) Code(s): E78.5 - HYPERLIPIDEMIA, UNSPECIFIED (7) HTN (hypertension) Code(s): I10 - ESSENTIAL (PRIMARY) HYPERTENSION (8) Seizure disorder Code(s): G40.909 - EPILEPSY, UNSP, NOT INTRACTABLE, WITHOUT STATUS EPILEPTICUS (9) Status post right shoulder hemiarthroplasty Code(s): Z96.611 - PRESENCE OF RIGHT ARTIFICIAL SHOULDER JOINT Assessment/Plan IV Steroids IV abtx Pulmonary consult; case was d/w Dr. Garay at bedside AM labs case was d/w pt's nurse
[2019-01-01] MEDS: methylPREDNISolone NA SUCC 40 MG/1 ML VIAL IVPUSH SCH ×2 (14:32→18:15)
[2019-01-01] MEDS: LACTATED RINGERS SOLUTION 1,000 ML/1,000 ML INFUS.BAG IV SCH (14:44)
--- NOTE | 2019-01-01 15:05 | EKG ---
Test Reason : Blood Pressure : / mmHG Vent. Rate : 081 BPM Atrial Rate : 081 BPM P-R Int : 196 ms QRS Dur : 100 ms QT Int : 392 ms P-R-T Axes : 088 -73 079 degrees QTc Int : 455 ms POOR DATA QUALITY, INTERPRETATION MAY BE ADVERSELY AFFECTED BASELINE ARTIFACT NORMAL SINUS RHYTHM LEFT AXIS DEVIATION SEPTAL INFARCT (CITED ON OR BEFORE 29-OCT-2007) ABNORMAL ECG WHEN COMPARED WITH ECG OF 18-OCT-2018 13:18, QUESTIONABLE CHANGE IN INITIAL FORCES OF [employer]TERIOR LEADS Confirmed by NICHOLE WOODS MD ([id number]) on 01/01/2019 3:05:27 PM Referred By: Confirmed By:NICHOLE WOODS MD
[2019-01-01] MEDS: ALBUTEROL SO4 2.5/IPRATROPIUM 0.5 INH SOL 3 ML VIAL.NEB. NEB SCH ×2 (16:59→21:00)
[2019-01-01] MEDS: ATORVASTATIN CA 10 MG TABLET (FP) PO SCH (22:16)
[2019-01-01] MEDS: MONTELUKAST NA 10 MG TABLET PO SCH (22:16)
[2019-01-02] MEDS: methylPREDNISolone NA SUCC 40 MG/1 ML VIAL IVPUSH SCH ×4 (02:24→18:40)
[2019-01-02] MEDS: LACTATED RINGERS SOLUTION 1,000 ML/1,000 ML INFUS.BAG IV SCH ×3 (02:28→18:27)
[2019-01-02] MEDS: ALBUTEROL SO4 2.5/IPRATROPIUM 0.5 INH SOL 3 ML VIAL.NEB. NEB SCH ×4 (08:33→21:30)
[2019-01-02] MEDS ORDERED: PT OWN MED DRAWER 7, Y5N ONE (11:17)
[2019-01-02] MEDS: PHENYTOIN NA EXTENDED 100 MG CAPSULE (FP) PO SCH ×2 (11:20→22:14)
[2019-01-02] MEDS: MAGNESIUM OXIDE 400 MG TABLET (FP) PO SCH ×2 (11:20→22:14)
[2019-01-02] MEDS: AZITHROMYCIN IVPB 500 MG/250 ML BAG IVPB SCH (11:21)
--- NOTE | 2019-01-02 12:50 | PN ---
Progress Note (short form) - Note Progress Note: Less SOB on [place] O2. Congested cough. Denies CP. Intake & Output 12/30/18 12/31/18 01/01/19 01/02/19 23:59 23:59 23:59 23:59 Intake Total 1900 675 Output Total 100 Balance 1800 675 Weight 87 lb 96 lb Last Vital Signs Temp Pulse Resp BP Pulse Ox 97.8 F 72 20 113/52 L 98 01/02/19 06:21 01/02/19 11:15 01/02/19 11:15 01/02/19 11:15 01/01/19 16:57 Active Medications Albuterol Sulfate (Ventolin 0.083% Nebulizer Soln -) 1 amp NEB Q6H PRN PRN Reason: SHORT OF BREATH/WHEEZING Albuterol/Ipratropium (Duoneb -) 1 amp NEB RQID [facility] Last Admin: 01/02/19 12:16 Dose: 1 amp Atorvastatin Calcium (Lipitor -) 10 mg PO HS [facility] Last Admin: 01/01/19 22:16 Dose: 10 mg Diltiazem HCl (Cardizem Cd -) 120 mg PO DAILY [facility] Last Admin: 01/02/19 11:22 Dose: 120 mg Guaifenesin (Robitussin Dm -) 10 ml PO Q4H PRN PRN Reason: COUGH Azithromycin (Zithromax 500mg Ivpb (Pre-Docked)) 500 mg in 250 mls @ 250 mls/ hr IVPB DAILY [facility] Last Admin: 01/02/19 11:21 Dose: 250 mls/hr Lactated Ringer's (Lactated Ringers Solution) 1,000 ml in 1,000 mls @ 75 mls/ hr IV ASDIR [facility] Last Admin: 01/02/19 02:28 Dose: 75 mls/hr Magnesium Oxide (Mag-Ox -) 400 mg PO BID [facility] Last Admin: 01/02/19 11:20 Dose: 400 mg Methylprednisolone Sodium Succinate (Solu-Medrol -) 40 mg IVPUSH Q8H-IV [facility] Last Admin: 01/02/19 11:51 Dose: 40 mg Montelukast Sodium (Singulair -) 10 mg PO HS [facility] Last Admin: 01/01/19 22:16 Dose: 10 mg Phenytoin Sodium (Dilantin -) 100 mg PO BID [facility] Last Admin: 01/02/19 11:20 Dose: 100 mg Constitutional: Yes: Less tachypneic, NAD Eyes: Yes: Conjunctiva Clear, EOM Intact HENT: Yes: Atraumatic, Normocephalic Neck: Yes: Supple, Trachea Midline Cardiovascular: Yes: Tachycardia Respiratory: Yes: Cough, Diminished, On [place] O2, Rhonchi, SOB, Wheezes. No: Rales , SOB on Exertion, Stridor ...Inspection: Yes: WNL ...Clubbing: No Gastrointestinal: Yes: Normal Bowel Sounds, Soft Musculoskeletal: Yes: WNL Extremities: Yes: WNL Edema: No Peripheral Pulses WNL: Yes Integumentary: Yes: WNL Neurological: Yes: Alert, Oriented ...Motor Strength: WNL Psychiatric: Yes: WNL, Alert, Oriented Labs: Problem List - Problems (1) Respiratory distress Code(s): R06.00 - DYSPNEA, UNSPECIFIED (2) Acute chronic obstructive pulmonary disease with respiratory failure Code(s): J96.00 - ACUTE RESPIRATORY FAILURE, UNSP W HYPOXIA OR HYPERCAPNIA; J44.9 - CHRONIC OBSTRUCTIVE PULMONARY DISEASE, UNSPECIFIED (3) Acute exacerbation of chronic obstructive pulmonary disease (COPD) Code(s): J44.1 - CHRONIC OBSTRUCTIVE PULMONARY DISEASE W (ACUTE) EXACERBATION (4) Acute hypoxemic respiratory failure Code(s): J96.01 - ACUTE RESPIRATORY FAILURE WITH HYPOXIA (5) Anemia Code(s): D64.9 - ANEMIA, UNSPECIFIED (6) CAD (coronary artery disease) Code(s): I25.10 - ATHSCL HEART DISEASE OF [place] CORONARY ARTERY W/O ANG PCTRS (7) COPD (chronic obstructive pulmonary disease) Code(s): J44.9 - CHRONIC OBSTRUCTIVE PULMONARY DISEASE, UNSPECIFIED (8) CVA (cerebral vascular accident) Code(s): I63.9 - CEREBRAL INFARCTION, UNSPECIFIED (9) Cachexia Code(s): R64 - CACHEXIA (10) Cough Code(s): R05 - COUGH (11) HTN (hypertension) Code(s): I10 - ESSENTIAL (PRIMARY) HYPERTENSION (12) Hypercholesterolemia Code(s): E78.0 - PURE HYPERCHOLESTEROLEMIA * DO NOT USE * (13) Hypoxia Code(s): R09.02 - HYPOXEMIA (14) Lung nodule Code(s): R91.1 - SOLITARY PULMONARY NODULE (15) Pulmonary hypertension Code(s): I27.2 - OTHER SECONDARY PULMONARY HYPERTENSION * DO NOT USE * (16) Severe malnutrition Code(s): E41 - NUTRITIONAL [place] (17) Seizure disorder Code(s): G40.909 - EPILEPSY, UNSP, NOT INTRACTABLE, WITHOUT STATUS EPILEPTICUS Assessment/Plan [place] O2 as tolerated BD TX IVF NIPPV support as needed Medrol Zithromax Aspiration precautions Dr Garay Problem List - Problems (1) Respiratory distress Code(s): R06.00 - DYSPNEA, UNSPECIFIED (2) Acute chronic obstructive pulmonary disease with respiratory failure Code(s): J96.00 - ACUTE RESPIRATORY FAILURE, UNSP W HYPOXIA OR HYPERCAPNIA; J44.9 - CHRONIC OBSTRUCTIVE PULMONARY DISEASE, UNSPECIFIED (3) Acute exacerbation of chronic obstructive pulmonary disease (COPD) Code(s): J44.1 - CHRONIC OBSTRUCTIVE PULMONARY DISEASE W (ACUTE) EXACERBATION (4) Acute hypoxemic respiratory failure Code(s): J96.01 - ACUTE RESPIRATORY FAILURE WITH HYPOXIA (5) Anemia Code(s): D64.9 - ANEMIA, UNSPECIFIED (6) CAD (coronary artery disease) Code(s): I25.10 - ATHSCL HEART DISEASE OF [place] CORONARY ARTERY W/O ANG PCTRS (7) COPD (chronic obstructive pulmonary disease) Code(s): J44.9 - CHRONIC OBSTRUCTIVE PULMONARY DISEASE, UNSPECIFIED (8) CVA (cerebral vascular accident) Code(s): I63.9 - CEREBRAL INFARCTION, UNSPECIFIED (9) Cachexia Code(s): R64 - [place] (10) Cough Code(s): R05 - COUGH (11) HTN (hypertension) Code(s): I10 - ESSENTIAL (PRIMARY) HYPERTENSION (12) Hypercholesterolemia Code(s): E78.0 - PURE HYPERCHOLESTEROLEMIA * DO NOT USE * (13) Hypoxia Code(s): R09.02 - HYPOXEMIA (14) Lung nodule Code(s): R91.1 - SOLITARY PULMONARY NODULE (15) Pulmonary hypertension Code(s): I27.2 - OTHER SECONDARY PULMONARY HYPERTENSION * DO NOT USE * (16) Severe malnutrition Code(s): E41 - NUTRITIONAL [place] (17) Seizure disorder Code(s): G40.909 - EPILEPSY, UNSP, NOT INTRACTABLE, WITHOUT STATUS EPILEPTICUS
[2019-01-02 14:21] LABS: HEMATOCRIT 33.6 % (35.4-49); HEMOGLOBIN 10.8 GM/dL (11.7-16.9); MCH 26.1 pg (25.7-33.7); MEAN CELL VOLUME 81.5 fl (80-96); MEAN PLT VOLUME 9.6 fl (7.5-11.1); PLATELET COUNT 139 K/MM3 (134-434); RBC 4.12 M/mm3 (4.00-5.60); RDW 16.6 % (11.9-15.9); WHITE BLOOD COUNT 12.7 K/mm3 (4.0-10.0)
[2019-01-02 14:52] LABS: ANION GAP 5 MMOL/L (8-16); BLOOD UREA NITROGEN 12 mg/dL (7-18); CALCIUM 8.4 mg/dL (8.5-10.1); CHLORIDE 101 mmol/L (98-107); CO2 31 mmol/L (21-32); CREATININE 0.3 mg/dL (0.55-1.3); GLUCOSE,RANDOM 111 mg/dL (74-106); POTASSIUM 3.4 mmol/L (3.5-5.1); SODIUM 137 mmol/L (136-145)
--- NOTE | 2019-01-02 15:57 | PN ---
Progress Note, Physician History of Present Illness: Pt's breathing is better today. Pt w/o CP, palpitations, abd pain - Current Medication List Current Medications: Active Medications Albuterol Sulfate (Ventolin 0.083% Nebulizer Soln -) 1 amp NEB Q6H PRN PRN Reason: SHORT OF BREATH/WHEEZING Albuterol/Ipratropium (Duoneb -) 1 amp NEB RQID [facility] Last Admin: 01/02/19 12:16 Dose: 1 amp Atorvastatin Calcium (Lipitor -) 10 mg PO HS [facility] Last Admin: 01/01/19 22:16 Dose: 10 mg Diltiazem HCl (Cardizem Cd -) 120 mg PO DAILY [facility] Last Admin: 01/02/19 11:22 Dose: 120 mg Guaifenesin (Robitussin Dm -) 10 ml PO Q4H PRN PRN Reason: COUGH Azithromycin (Zithromax 500mg Ivpb (Pre-Docked)) 500 mg in 250 mls @ 250 mls/ hr IVPB DAILY [facility] Last Admin: 01/02/19 11:21 Dose: 250 mls/hr Lactated Ringer's (Lactated Ringers Solution) 1,000 ml in 1,000 mls @ 75 mls/ hr IV ASDIR [facility] Last Admin: 01/02/19 02:28 Dose: 75 mls/hr Magnesium Oxide (Mag-Ox -) 400 mg PO BID [facility] Last Admin: 01/02/19 11:20 Dose: 400 mg Methylprednisolone Sodium Succinate (Solu-Medrol -) 40 mg IVPUSH Q8H-IV [facility] Last Admin: 01/02/19 11:51 Dose: 40 mg Montelukast Sodium (Singulair -) 10 mg PO HS [facility] Last Admin: 01/01/19 22:16 Dose: 10 mg Phenytoin Sodium (Dilantin -) 100 mg PO BID [facility] Last Admin: 01/02/19 11:20 Dose: 100 mg - Objective Vital Signs: Vital Signs Temperature 97.9 F 01/02/19 13:38 Pulse Rate 74 01/02/19 13:38 Respiratory Rate 20 01/02/19 13:38 Blood Pressure 113/55 L 01/02/19 13:38 O2 Sat by Pulse Oximetry (%) 98 01/01/19 16:57 Constitutional: Yes: No Distress, Calm Cardiovascular: Yes: Regular Rate and Rhythm, S1, S2 Respiratory: Yes: Regular, Rhonchi Gastrointestinal: Yes: Normal Bowel Sounds, Soft. No: Tenderness Edema: No Neurological: Yes: Alert, Oriented Labs: CBC, BMP 01/02/19 14:00 01/02/19 14:00 INR, PTT INR 1.10 (0.83-1.09) H 12/31/18 00:00 Problem List - Problems (1) Respiratory distress Code(s): R06.00 - DYSPNEA, UNSPECIFIED (2) Acute exacerbation of chronic obstructive pulmonary disease (COPD) Code(s): J44.1 - CHRONIC OBSTRUCTIVE PULMONARY DISEASE W (ACUTE) EXACERBATION (3) CAD (coronary artery disease) Code(s): I25.10 - ATHSCL HEART DISEASE OF [place] CORONARY ARTERY W/O ANG PCTRS (4) CVA (cerebral vascular accident) Code(s): I63.9 - CEREBRAL INFARCTION, UNSPECIFIED (5) Cachexia Code(s): R64 - [place] (6) HLD (hyperlipidemia) Code(s): E78.5 - HYPERLIPIDEMIA, UNSPECIFIED (7) HTN (hypertension) Code(s): I10 - ESSENTIAL (PRIMARY) HYPERTENSION (8) Seizure disorder Code(s): G40.909 - EPILEPSY, UNSP, NOT INTRACTABLE, WITHOUT STATUS EPILEPTICUS (9) Status post right shoulder hemiarthroplasty Code(s): Z96.611 - PRESENCE OF RIGHT ARTIFICIAL SHOULDER JOINT (10) Hypokalemia Code(s): E87.6 - HYPOKALEMIA Assessment/Plan IV Steroids IV abtx Pulmonary consult is appreciated. K-dur X once AM labs case was d/w pt's nurse
[2019-01-02] MEDS ORDERED: POTASSIUM CHLORIDE TABS 20 MEQ TABLET.ER (FP) PO ONE (16:48)
[2019-01-02] MEDS: MONTELUKAST NA 10 MG TABLET PO SCH (22:14)
[2019-01-02] MEDS: ATORVASTATIN CA 10 MG TABLET (FP) PO SCH (22:14)
[2019-01-03 00:43] LABS: URINE APPEARANCE CLEAR; URINE BILIRUBIN NEGATIVE (NEGATIVE); URINE COLOR YELLOW; URINE GLUCOSE (UA) NEGATIVE (NEGATIVE); URINE KETONE NEGATIVE (NEGATIVE); URINE LEUK ESTERASE NEGATIVE (NEGATIVE); URINE NITRITE NEGATIVE (NEGATIVE); URINE PROTEIN NEGATIVE (NEGATIVE)
[2019-01-03] MEDS: methylPREDNISolone NA SUCC 40 MG/1 ML VIAL IVPUSH SCH ×3 (02:31→18:22)
[2019-01-03] MEDS: LACTATED RINGERS SOLUTION 1,000 ML/1,000 ML INFUS.BAG IV SCH ×2 (06:37→18:22)
[2019-01-03] MEDS: ALBUTEROL SO4 2.5/IPRATROPIUM 0.5 INH SOL 3 ML VIAL.NEB. NEB SCH ×4 (08:17→20:52)
[2019-01-03] MEDS ORDERED: PT OWN MED DRAWER 7, Y5N ONE (09:50)
[2019-01-03] MEDS: MAGNESIUM OXIDE 400 MG TABLET (FP) PO SCH ×2 (09:55→21:04)
[2019-01-03] MEDS: PHENYTOIN NA EXTENDED 100 MG CAPSULE (FP) PO SCH ×2 (09:56→21:04)
[2019-01-03] MEDS: AZITHROMYCIN IVPB 500 MG/250 ML BAG IVPB SCH (09:56)
[2019-01-03 14:16] VITALS: BMI 14.1
--- NOTE | 2019-01-03 16:02 | PN ---
Progress Note (short form) - Note Progress Note: PULMONARY Still short of breath with cough and wheezing. no fevers or chills. Vital Signs Period Temp Pulse Resp BP Sys/Fernández Pulse Ox Last 24 Hr 97.8 F-98.6 F 69-86 20-22 109-120/60-67 90-100 Gen: NAD at rest Heart: RRR Lung: distant breath sounds Abd: soft, nontender Ext: no edema CBC, BMP 01/02/19 14:00 01/02/19 14:00 Active Medications Albuterol Sulfate (Ventolin 0.083% Nebulizer Soln -) 1 amp NEB Q6H PRN PRN Reason: SHORT OF BREATH/WHEEZING Albuterol/Ipratropium (Duoneb -) 1 amp NEB RQID [facility] Last Admin: 01/03/19 15:53 Dose: 1 amp Atorvastatin Calcium (Lipitor -) 10 mg PO HS [facility] Last Admin: 01/02/19 22:14 Dose: 10 mg Diltiazem HCl (Cardizem Cd -) 120 mg PO DAILY [facility] Last Admin: 01/03/19 09:56 Dose: 120 mg Guaifenesin (Robitussin Dm -) 10 ml PO Q4H PRN PRN Reason: COUGH Azithromycin (Zithromax 500mg Ivpb (Pre-Docked)) 500 mg in 250 mls @ 250 mls/ hr IVPB DAILY [facility] Last Admin: 01/03/19 09:56 Dose: Not Given Lactated Ringer's (Lactated Ringers Solution) 1,000 ml in 1,000 mls @ 50 mls/ hr IV ASDIR [facility] Last Admin: 01/03/19 06:37 Dose: 50 mls/hr Magnesium Oxide (Mag-Ox -) 400 mg PO BID [facility] Last Admin: 01/03/19 09:55 Dose: 400 mg Methylprednisolone Sodium Succinate (Solu-Medrol -) 40 mg IVPUSH Q8H-IV [facility] Last Admin: 01/03/19 09:55 Dose: 40 mg Montelukast Sodium (Singulair -) 10 mg PO HS [facility] Last Admin: 01/02/19 22:14 Dose: 10 mg Phenytoin Sodium (Dilantin -) 100 mg PO BID [facility] Last Admin: 01/03/19 09:56 Dose: 100 mg A/P Acute Hypoxic Respiratory Failure Acute COPD Exacerbation CAD - continue medrol - inhaled bronchodilators - O2 to keep Spo2 >90% - azithromycin - DVT prophylaxis
[2019-01-03] MEDS ORDERED: POTASSIUM CHLORIDE TABS 20 MEQ TABLET.ER (FP) PO ONE (17:33)
--- NOTE | 2019-01-03 18:52 | PN ---
Progress Note, Physician History of Present Illness: Pt's breathing is better; he brings up white sputum Pt w/o CP, palpitations, abd pain - Current Medication List Current Medications: Active Medications Albuterol Sulfate (Ventolin 0.083% Nebulizer Soln -) 1 amp NEB Q6H PRN PRN Reason: SHORT OF BREATH/WHEEZING Albuterol/Ipratropium (Duoneb -) 1 amp NEB RQID [facility] Last Admin: 01/03/19 15:53 Dose: 1 amp Atorvastatin Calcium (Lipitor -) 10 mg PO HS [facility] Last Admin: 01/02/19 22:14 Dose: 10 mg Azithromycin (Zithromax -) 500 mg PO DAILY [facility] Diltiazem HCl (Cardizem Cd -) 120 mg PO DAILY [facility] Last Admin: 01/03/19 09:56 Dose: 120 mg Guaifenesin (Robitussin Dm -) 10 ml PO Q4H PRN PRN Reason: COUGH Heparin Sodium (Porcine) (Heparin -) 5,000 unit SQ BID [facility] Lactated Ringer's (Lactated Ringers Solution) 1,000 ml in 1,000 mls @ 50 mls/ hr IV ASDIR [facility] Last Admin: 01/03/19 18:22 Dose: Not Given Magnesium Oxide (Mag-Ox -) 400 mg PO BID [facility] Last Admin: 01/03/19 09:55 Dose: 400 mg Methylprednisolone Sodium Succinate (Solu-Medrol -) 40 mg IVPUSH Q8H-IV [facility] Last Admin: 01/03/19 18:22 Dose: 40 mg Montelukast Sodium (Singulair -) 10 mg PO [facility] Last Admin: 01/02/19 22:14 Dose: 10 mg Phenytoin Sodium (Dilantin -) 100 mg PO BID [facility] Last Admin: 01/03/19 09:56 Dose: 100 mg - Objective Vital Signs: Vital Signs Temperature 97.4 F L 01/03/19 16:30 Pulse Rate 72 01/03/19 16:30 Respiratory Rate 18 01/03/19 16:30 Blood Pressure 114/63 01/03/19 16:30 O2 Sat by Pulse Oximetry (%) 91 L 01/03/19 10:00 Constitutional: Yes: No Distress, Calm Cardiovascular: Yes: Regular Rate and Rhythm, S1, S2 Respiratory: Yes: Regular, Rales Gastrointestinal: Yes: Normal Bowel Sounds, Soft. No: Tenderness Edema: No Neurological: Yes: Alert, Oriented Labs: CBC, BMP 01/02/19 14:00 01/02/19 14:00 INR, PTT INR 1.10 (0.83-1.09) H 12/31/18 00:00 Problem List - Problems (1) Respiratory distress Code(s): R06.00 - DYSPNEA, UNSPECIFIED (2) Acute exacerbation of chronic obstructive pulmonary disease (COPD) Code(s): J44.1 - CHRONIC OBSTRUCTIVE PULMONARY DISEASE W (ACUTE) EXACERBATION (3) CAD (coronary artery disease) Code(s): I25.10 - ATHSCL HEART DISEASE OF [place] CORONARY ARTERY W/O ANG PCTRS (4) CVA (cerebral vascular accident) Code(s): I63.9 - CEREBRAL INFARCTION, UNSPECIFIED (5) Cachexia Code(s): R64 - CACHEXIA (6) HLD (hyperlipidemia) Code(s): E78.5 - HYPERLIPIDEMIA, UNSPECIFIED (7) HTN (hypertension) Code(s): I10 - ESSENTIAL (PRIMARY) HYPERTENSION (8) Seizure disorder Code(s): G40.909 - EPILEPSY, UNSP, NOT INTRACTABLE, WITHOUT STATUS EPILEPTICUS (9) Status post right shoulder hemiarthroplasty Code(s): Z96.611 - PRESENCE OF RIGHT ARTIFICIAL SHOULDER JOINT (10) Hypokalemia Code(s): E87.6 - HYPOKALEMIA Assessment/Plan IV Steroids -tappered to Q8H TO change abtx to PO (as IV [place] when goes in and pt doesn't tolerates it). Pulmonary consult is appreciated. K-dur X once AM labs case was d/w pt's nurse
[2019-01-03] MEDS: AZITHROMYCIN 250 MG TABLET PO SCH (18:58)
[2019-01-03] MEDS: MONTELUKAST NA 10 MG TABLET PO SCH (21:04)
[2019-01-03] MEDS: ATORVASTATIN CA 10 MG TABLET (FP) PO SCH (21:04)
[2019-01-03] MEDS: HEPARIN NA (PORCINE) 5,000 UNITS/ML 1ML VIAL SQ SCH (21:04)
[2019-01-04] MEDS: methylPREDNISolone NA SUCC 40 MG/1 ML VIAL IVPUSH SCH ×3 (02:34→17:24)
[2019-01-04] MEDS: LACTATED RINGERS SOLUTION 1,000 ML/1,000 ML INFUS.BAG IV SCH ×2 (05:33→19:12)
[2019-01-04] MEDS: ALBUTEROL SO4 2.5/IPRATROPIUM 0.5 INH SOL 3 ML VIAL.NEB. NEB SCH ×4 (07:30→20:11)
[2019-01-04] MEDS: MAGNESIUM OXIDE 400 MG TABLET (FP) PO SCH ×2 (09:19→21:46)
[2019-01-04] MEDS: AZITHROMYCIN 250 MG TABLET PO SCH (09:19)
[2019-01-04] MEDS: PHENYTOIN NA EXTENDED 100 MG CAPSULE (FP) PO SCH ×2 (09:19→21:45)
[2019-01-04] MEDS: HEPARIN NA (PORCINE) 5,000 UNITS/ML 1ML VIAL SQ SCH ×3 (09:20→21:44)
[2019-01-04 09:37] LABS: HEMATOCRIT 39.2 % (35.4-49); HEMOGLOBIN 12.4 GM/dL (11.7-16.9); MCH 25.7 pg (25.7-33.7); MCHC 31.5 g/dl (32.0-35.9); MEAN CELL VOLUME 81.6 fl (80-96); MEAN PLT VOLUME 9.2 fl (7.5-11.1); PLATELET COUNT 181 K/MM3 (134-434); RBC 4.81 M/mm3 (4.00-5.60); WHITE BLOOD COUNT 10.1 K/mm3 (4.0-10.0)
[2019-01-04 10:15] LABS: ANION GAP 8 MMOL/L (8-16); BLOOD UREA NITROGEN 12 mg/dL (7-18); CALCIUM 8.9 mg/dL (8.5-10.1); CHLORIDE 98 mmol/L (98-107); CO2 30 mmol/L (21-32); CREATININE 0.4 mg/dL (0.55-1.3); GLUCOSE,RANDOM 114 mg/dL (74-106); POTASSIUM 4.4 mmol/L (3.5-5.1); SODIUM 136 mmol/L (136-145)
--- NOTE | 2019-01-04 14:23 | PN ---
Progress Note, Physician History of Present Illness: Pt's breathing is better; he is couching less. Pt w/o CP, palpitations, abd pain - Current Medication List Current Medications: Active Medications Albuterol Sulfate (Ventolin 0.083% Nebulizer Soln -) 1 amp NEB Q6H PRN PRN Reason: SHORT OF BREATH/WHEEZING Albuterol/Ipratropium (Duoneb -) 1 amp NEB RQID [facility] Last Admin: 01/04/19 11:44 Dose: 1 amp Atorvastatin Calcium (Lipitor -) 10 mg PO HS [facility] Last Admin: 01/03/19 21:04 Dose: 10 mg Azithromycin (Zithromax -) 500 mg PO DAILY [facility] Last Admin: 01/04/19 09:19 Dose: 500 mg Diltiazem HCl (Cardizem Cd -) 120 mg PO DAILY [facility] Last Admin: 01/04/19 09:18 Dose: 120 mg Guaifenesin (Robitussin Dm -) 10 ml PO Q4H PRN PRN Reason: COUGH Heparin Sodium (Porcine) (Heparin -) 5,000 unit SQ BID [facility] Last Admin: 01/04/19 09:29 Dose: Not Given Lactated Ringer's (Lactated Ringers Solution) 1,000 ml in 1,000 mls @ 50 mls/ hr IV ASDIR [facility] Last Admin: 01/04/19 05:33 Dose: 50 mls/hr Magnesium Oxide (Mag-Ox -) 400 mg PO BID [facility] Last Admin: 01/04/19 09:19 Dose: 400 mg Methylprednisolone Sodium Succinate (Solu-Medrol -) 40 mg IVPUSH Q8H-IV [facility] Last Admin: 01/04/19 09:19 Dose: 40 mg Montelukast Sodium (Singulair -) 10 mg PO HS [facility] Last Admin: 01/03/19 21:04 Dose: 10 mg Phenytoin Sodium (Dilantin -) 100 mg PO BID [facility] Last Admin: 01/04/19 09:19 Dose: 100 mg - Objective Vital Signs: Vital Signs Temperature 97.5 F L 01/04/19 08:10 Pulse Rate 77 01/04/19 08:10 Respiratory Rate 20 01/04/19 08:10 Blood Pressure 132/63 01/04/19 08:10 O2 Sat by Pulse Oximetry (%) 94 L 01/04/19 09:00 Constitutional: Yes: No Distress, Calm Cardiovascular: Yes: Regular Rate and Rhythm, S1, S2 Respiratory: Yes: Regular, Diminished, Rhonchi Gastrointestinal: Yes: Normal Bowel Sounds, Soft. No: Tenderness Edema: No Neurological: Yes: Alert, Oriented Labs: CBC, BMP 01/04/19 09:10 01/04/19 09:10 INR, PTT INR 1.10 (0.83-1.09) H 12/31/18 00:00 Problem List - Problems (1) Respiratory distress Code(s): R06.00 - DYSPNEA, UNSPECIFIED (2) Acute exacerbation of chronic obstructive pulmonary disease (COPD) Code(s): J44.1 - CHRONIC OBSTRUCTIVE PULMONARY DISEASE W (ACUTE) EXACERBATION (3) CAD (coronary artery disease) Code(s): I25.10 - ATHSCL HEART DISEASE OF [place] CORONARY ARTERY W/O ANG PCTRS (4) CVA (cerebral vascular accident) Code(s): I63.9 - CEREBRAL INFARCTION, UNSPECIFIED (5) Cachexia Code(s): R64 - [place] (6) HLD (hyperlipidemia) Code(s): E78.5 - HYPERLIPIDEMIA, UNSPECIFIED (7) HTN (hypertension) Code(s): I10 - ESSENTIAL (PRIMARY) HYPERTENSION (8) Seizure disorder Code(s): G40.909 - EPILEPSY, UNSP, NOT INTRACTABLE, WITHOUT STATUS EPILEPTICUS (9) Status post right shoulder hemiarthroplasty Code(s): Z96.611 - PRESENCE OF RIGHT ARTIFICIAL SHOULDER JOINT (10) Hypokalemia Code(s): E87.6 - HYPOKALEMIA Assessment/Plan IV Steroids -tappered to Q8H Abtx PO (as IV [place] and pt doesn't tolerates it). Pulmonary consult is appreciated. AM labs case was d/w pt's nurse
--- NOTE | 2019-01-04 15:23 | PN ---
Progress Note (short form) - Note Progress Note: PULMONARY Breathing slightly improving but still short of breath with cough and wheezing. no fevers or chills. Vital Signs Period Temp Pulse Resp BP Sys/Fernández Pulse Ox Last 24 Hr 97.4 F-98.0 F 67-93 18-20 114-132/57-69 93-94 Gen: NAD at rest Heart: RRR Lung: distant breath sounds Abd: soft, nontender Ext: no edema CBC, BMP 01/04/19 09:10 01/04/19 09:10 Active Medications Albuterol Sulfate (Ventolin 0.083% Nebulizer Soln -) 1 amp NEB Q6H PRN PRN Reason: SHORT OF BREATH/WHEEZING Albuterol/Ipratropium (Duoneb -) 1 amp NEB RQID [facility] Last Admin: 01/04/19 11:44 Dose: 1 amp Atorvastatin Calcium (Lipitor -) 10 mg PO HS [facility] Last Admin: 01/03/19 21:04 Dose: 10 mg Azithromycin (Zithromax -) 500 mg PO DAILY [facility] Last Admin: 01/04/19 09:19 Dose: 500 mg Diltiazem HCl (Cardizem Cd -) 120 mg PO DAILY [facility] Last Admin: 01/04/19 09:18 Dose: 120 mg Guaifenesin (Robitussin Dm -) 10 ml PO Q4H PRN PRN Reason: COUGH Heparin Sodium (Porcine) (Heparin -) 5,000 unit SQ BID [facility] Last Admin: 01/04/19 09:29 Dose: Not Given Lactated Ringer's (Lactated Ringers Solution) 1,000 ml in 1,000 mls @ 50 mls/ hr IV ASDIR [facility] Last Admin: 01/04/19 05:33 Dose: 50 mls/hr Magnesium Oxide (Mag-Ox -) 400 mg PO BID [facility] Last Admin: 01/04/19 09:19 Dose: 400 mg Methylprednisolone Sodium Succinate (Solu-Medrol -) 40 mg IVPUSH Q8H-IV [facility] Last Admin: 01/04/19 09:19 Dose: 40 mg Montelukast Sodium (Singulair -) 10 mg PO HS [facility] Last Admin: 01/03/19 21:04 Dose: 10 mg Phenytoin Sodium (Dilantin -) 100 mg PO BID [facility] Last Admin: 04/30/19 09:19 Dose: 100 mg A/P Acute Hypoxic Respiratory Failure Acute COPD Exacerbation CAD - continue medrol - inhaled bronchodilators - O2 to keep Spo2 >90% - azithromycin - DVT prophylaxis
[2019-01-04] MEDS: ATORVASTATIN CA 10 MG TABLET (FP) PO SCH (21:46)
[2019-01-04] MEDS: MONTELUKAST NA 10 MG TABLET PO SCH (21:46)
[2019-01-04] MEDS: ALBUTEROL SO4 0.083% IH SOL 2.5 MG/3 ML VIAL.NEB. NEB PRN (22:55)
[2019-01-05] MEDS: methylPREDNISolone NA SUCC 40 MG/1 ML VIAL IVPUSH SCH ×3 (01:19→18:29)
[2019-01-05] MEDS: ALBUTEROL SO4 2.5/IPRATROPIUM 0.5 INH SOL 3 ML VIAL.NEB. NEB SCH ×4 (07:55→20:36)
[2019-01-05 08:44] LABS: HEMATOCRIT 38.5 % (35.4-49); MCH 25.4 pg (25.7-33.7); MCHC 31.2 g/dl (32.0-35.9); MEAN CELL VOLUME 81.5 fl (80-96); MEAN PLT VOLUME 9.2 fl (7.5-11.1); PLATELET COUNT 174 K/MM3 (134-434); RBC 4.73 M/mm3 (4.00-5.60); RDW 16.3 % (11.9-15.9); WHITE BLOOD COUNT 12.2 K/mm3 (4.0-10.0)
[2019-01-05 08:51] LABS: ANION GAP 5 MMOL/L (8-16); BLOOD UREA NITROGEN 16 mg/dL (7-18); CALCIUM 8.3 mg/dL (8.5-10.1); CHLORIDE 103 mmol/L (98-107); CO2 31 mmol/L (21-32); CREATININE 0.3 mg/dL (0.55-1.3); GLUCOSE,RANDOM 83 mg/dL (74-106); POTASSIUM 4.9 mmol/L (3.5-5.1); SODIUM 139 mmol/L (136-145)
--- NOTE | 2019-01-05 10:10 | PN ---
Progress Note, Physician History of Present Illness: Pt's breathing is the same like yesterday. Pt w/o CP, palpitations, abd pain. Pt participated in Rehab yesterday. - Current Medication List Current Medications: Active Medications Albuterol Sulfate (Ventolin 0.083% Nebulizer Soln -) 1 amp NEB Q6H PRN PRN Reason: SHORT OF BREATH/WHEEZING Last Admin: 01/04/19 22:55 Dose: 1 amp Albuterol/Ipratropium (Duoneb -) 1 amp NEB RQID [facility] Last Admin: 01/05/19 07:55 Dose: 1 amp Atorvastatin Calcium (Lipitor -) 10 mg PO HS [facility] Last Admin: 01/04/19 21:46 Dose: 10 mg Azithromycin (Zithromax -) 500 mg PO DAILY [facility] Last Admin: 01/04/19 09:19 Dose: 500 mg Diltiazem HCl (Cardizem Cd -) 120 mg PO DAILY [facility] Last Admin: 01/04/19 09:18 Dose: 120 mg Guaifenesin (Robitussin Dm -) 10 ml PO Q4H PRN PRN Reason: COUGH Heparin Sodium (Porcine) (Heparin -) 5,000 unit SQ BID [facility] Last Admin: 01/04/19 21:44 Dose: Not Given Lactated Ringer's (Lactated Ringers Solution) 1,000 ml in 1,000 mls @ 50 mls/ hr IV ASDIR [facility] Last Admin: 01/04/19 19:12 Dose: Not Given Magnesium Oxide (Mag-Ox -) 400 mg PO BID [facility] Last Admin: 01/04/19 21:46 Dose: 400 mg Methylprednisolone Sodium Succinate (Solu-Medrol -) 40 mg IVPUSH Q8H-IV [facility] Last Admin: 01/05/19 01:19 Dose: 40 mg Montelukast Sodium (Singulair -) 10 mg PO HS [facility] Last Admin: 01/04/19 21:46 Dose: 10 mg Phenytoin Sodium (Dilantin -) 100 mg PO BID [facility] Last Admin: 01/04/19 21:45 Dose: 100 mg - Objective Vital Signs: Vital Signs Temperature 97.4 F L 01/05/19 06:59 Pulse Rate 62 01/05/19 06:59 Respiratory Rate 20 01/05/19 06:59 Blood Pressure 116/54 L 01/05/19 06:59 O2 Sat by Pulse Oximetry (%) 94 L 01/04/19 09:00 Constitutional: Yes: No Distress, Calm Cardiovascular: Yes: Regular Rate and Rhythm, S1, S2 Respiratory: Yes: Regular, Diminished, Rhonchi (minimal) Gastrointestinal: Yes: Normal Bowel Sounds, Soft. No: Tenderness Edema: No Neurological: Yes: Alert, Oriented Labs: CBC, BMP 01/05/19 08:03 01/05/19 08:03 INR, PTT INR 1.10 (0.83-1.09) H 12/31/18 00:00 Problem List - Problems (1) Respiratory distress Code(s): R06.00 - DYSPNEA, UNSPECIFIED (2) Acute exacerbation of chronic obstructive pulmonary disease (COPD) Code(s): J44.1 - CHRONIC OBSTRUCTIVE PULMONARY DISEASE W (ACUTE) EXACERBATION (3) CAD (coronary artery disease) Code(s): I25.10 - ATHSCL HEART DISEASE OF [place] CORONARY ARTERY W/O ANG PCTRS (4) CVA (cerebral vascular accident) Code(s): I63.9 - CEREBRAL INFARCTION, UNSPECIFIED (5) Cachexia Code(s): R64 - CACHEXIA (6) HLD (hyperlipidemia) Code(s): E78.5 - HYPERLIPIDEMIA, UNSPECIFIED (7) HTN (hypertension) Code(s): I10 - ESSENTIAL (PRIMARY) HYPERTENSION (8) Seizure disorder Code(s): G40.909 - EPILEPSY, UNSP, NOT INTRACTABLE, WITHOUT STATUS EPILEPTICUS (9) Status post right shoulder hemiarthroplasty Code(s): Z96.611 - PRESENCE OF RIGHT ARTIFICIAL SHOULDER JOINT (10) Hypokalemia Code(s): E87.6 - HYPOKALEMIA Assessment/Plan IV Steroids -tappered to Q8H Abtx PO (as IV [place] and pt doesn't tolerates it). Pulmonary consult is appreciated. AM labs case was d/w pt's nurse
[2019-01-05] MEDS: HEPARIN NA (PORCINE) 5,000 UNITS/ML 1ML VIAL SQ SCH ×3 (10:26→21:42)
[2019-01-05] MEDS: AZITHROMYCIN 250 MG TABLET PO SCH (10:26)
[2019-01-05] MEDS: PHENYTOIN NA EXTENDED 100 MG CAPSULE (FP) PO SCH ×2 (10:26→21:37)
[2019-01-05] MEDS: MAGNESIUM OXIDE 400 MG TABLET (FP) PO SCH ×2 (10:26→21:37)
--- NOTE | 2019-01-05 12:48 | PN ---
Progress Note, Physician History of Present Illness: PULMONARY ALERT,LESS DYSPNEIC - Current Medication List Current Medications: Active Medications Albuterol Sulfate (Ventolin 0.083% Nebulizer Soln -) 1 amp NEB Q6H PRN PRN Reason: SHORT OF BREATH/WHEEZING Last Admin: 01/04/19 22:55 Dose: 1 amp Albuterol/Ipratropium (Duoneb -) 1 amp NEB RQID [facility] Last Admin: 01/05/19 12:15 Dose: 1 amp Atorvastatin Calcium (Lipitor -) 10 mg PO HS [facility] Last Admin: 01/04/19 21:46 Dose: 10 mg Azithromycin (Zithromax -) 500 mg PO DAILY [facility] Last Admin: 01/05/19 10:26 Dose: 500 mg Diltiazem HCl (Cardizem Cd -) 120 mg PO DAILY [facility] Last Admin: 01/05/19 10:26 Dose: 120 mg Guaifenesin (Robitussin Dm -) 10 ml PO Q4H PRN PRN Reason: COUGH Heparin Sodium (Porcine) (Heparin -) 5,000 unit SQ BID [facility] Last Admin: 01/05/19 10:26 Dose: 5,000 unit Lactated Ringer's (Lactated Ringers Solution) 1,000 ml in 1,000 mls @ 50 mls/ hr IV ASDIR [facility] Last Admin: 01/04/19 19:12 Dose: Not Given Magnesium Oxide (Mag-Ox -) 400 mg PO BID [facility] Last Admin: 01/05/19 10:26 Dose: 400 mg Methylprednisolone Sodium Succinate (Solu-Medrol -) 40 mg IVPUSH Q8H-IV [facility] Last Admin: 01/05/19 10:26 Dose: 40 mg Montelukast Sodium (Singulair -) 10 mg PO HS [facility] Last Admin: 01/04/19 21:46 Dose: 10 mg Phenytoin Sodium (Dilantin -) 100 mg PO BID [facility] Last Admin: 01/05/19 10:26 Dose: 100 mg - Objective Vital Signs: Vital Signs Temperature 97.4 F L 01/05/19 06:59 Pulse Rate 62 01/05/19 06:59 Respiratory Rate 20 01/05/19 06:59 Blood Pressure 116/54 L 01/05/19 06:59 O2 Sat by Pulse Oximetry (%) 94 L 01/04/19 09:00 Constitutional: Yes: Calm, Cachectic Eyes: Yes: WNL HENT: Yes: WNL Neck: Yes: WNL Cardiovascular: Yes: Regular Rate and Rhythm, S1, S2 Respiratory: Yes: Diminished Gastrointestinal: Yes: Normal Bowel Sounds, Soft Extremities: Yes: WNL Edema: No Labs: CBC, BMP 01/05/19 08:03 01/05/19 08:03 INR, PTT Problem List - Problems (1) HLD (hyperlipidemia) Code(s): E78.5 - HYPERLIPIDEMIA, UNSPECIFIED (2) Respiratory distress Code(s): R06.00 - DYSPNEA, UNSPECIFIED (3) Acute chronic obstructive pulmonary disease with respiratory failure Code(s): J96.00 - ACUTE RESPIRATORY FAILURE, UNSP W HYPOXIA OR HYPERCAPNIA; J44.9 - CHRONIC OBSTRUCTIVE PULMONARY DISEASE, UNSPECIFIED (4) Acute exacerbation of chronic obstructive pulmonary disease (COPD) Code(s): J44.1 - CHRONIC OBSTRUCTIVE PULMONARY DISEASE W (ACUTE) EXACERBATION (5) Anemia Code(s): D64.9 - ANEMIA, UNSPECIFIED (6) CAD (coronary artery disease) Code(s): I25.10 - ATHSCL HEART DISEASE OF [place] CORONARY ARTERY W/O ANG PCTRS (7) CVA (cerebral vascular accident) Code(s): I63.9 - CEREBRAL INFARCTION, UNSPECIFIED (8) Cachexia Code(s): R64 - [place]HEXIA (9) DVT (deep venous thrombosis) Code(s): I82.409 - ACUTE EMBOLISM AND THOMBOS UNSP DEEP VN UNSP LOWER EXTREMITY (10) GERD (gastroesophageal reflux disease) Code(s): K21.9 - GASTRO-ESOPHAGEAL REFLUX DISEASE WITHOUT ESOPHAGITIS (11) HTN (hypertension) Code(s): I10 - ESSENTIAL (PRIMARY) HYPERTENSION (12) Seizure disorder Code(s): G40.909 - EPILEPSY, UNSP, NOT INTRACTABLE, WITHOUT STATUS EPILEPTICUS Assessment/Plan A/P Acute Hypoxic Respiratory Failure Acute COPD Exacerbation CAD - medrol - inhaled bronchodilators - O2 to keep Spo2 >90% - azithromycin - DVT prophylaxis DR LOPEZ
[2019-01-05] MEDS: LACTATED RINGERS SOLUTION 1,000 ML/1,000 ML INFUS.BAG IV SCH (18:29)
[2019-01-05] MEDS: MONTELUKAST NA 10 MG TABLET PO SCH (21:37)
[2019-01-05] MEDS: ATORVASTATIN CA 10 MG TABLET (FP) PO SCH (21:37)
[2019-01-06] MEDS: methylPREDNISolone NA SUCC 40 MG/1 ML VIAL IVPUSH SCH ×3 (02:00→17:35)
[2019-01-06] MEDS: ALBUTEROL SO4 2.5/IPRATROPIUM 0.5 INH SOL 3 ML VIAL.NEB. NEB SCH ×4 (07:33→20:22)
[2019-01-06] MEDS: PHENYTOIN NA EXTENDED 100 MG CAPSULE (FP) PO SCH ×2 (10:05→22:46)
[2019-01-06] MEDS: MAGNESIUM OXIDE 400 MG TABLET (FP) PO SCH ×2 (10:05→22:46)
[2019-01-06] MEDS: AZITHROMYCIN 250 MG TABLET PO SCH (10:05)
[2019-01-06] MEDS: HEPARIN NA (PORCINE) 5,000 UNITS/ML 1ML VIAL SQ SCH ×2 (10:05→22:22)
--- NOTE | 2019-01-06 15:04 | PN ---
Progress Note, Physician History of Present Illness: PULMONARY ALERT,ANXIOUS,-RESP DISTRESS - Current Medication List Current Medications: Active Medications Albuterol Sulfate (Ventolin 0.083% Nebulizer Soln -) 1 amp NEB Q6H PRN PRN Reason: SHORT OF BREATH/WHEEZING Last Admin: 01/04/19 22:55 Dose: 1 amp Albuterol/Ipratropium (Duoneb -) 1 amp NEB RQID [facility] Last Admin: 01/06/19 11:29 Dose: 1 amp Atorvastatin Calcium (Lipitor -) 10 mg PO HS [facility] Last Admin: 01/05/19 21:37 Dose: 10 mg Azithromycin (Zithromax -) 500 mg PO DAILY [facility] Last Admin: 01/06/19 10:05 Dose: 500 mg Diltiazem HCl (Cardizem Cd -) 120 mg PO DAILY [facility] Last Admin: 01/06/19 10:04 Dose: 120 mg Guaifenesin (Robitussin Dm -) 10 ml PO Q4H PRN PRN Reason: COUGH Heparin Sodium (Porcine) (Heparin -) 5,000 unit SQ BID [facility] Last Admin: 01/06/19 10:05 Dose: 5,000 unit Lactated Ringer's (Lactated Ringers Solution) 1,000 ml in 1,000 mls @ 50 mls/ hr IV ASDIR [facility] Last Admin: 01/05/19 18:29 Dose: Not Given Magnesium Oxide (Mag-Ox -) 400 mg PO BID [facility] Last Admin: 01/06/19 10:05 Dose: 400 mg Methylprednisolone Sodium Succinate (Solu-Medrol -) 40 mg IVPUSH Q8H-IV [facility] Last Admin: 01/06/19 10:05 Dose: 40 mg Montelukast Sodium (Singulair -) 10 mg PO HS [facility] Last Admin: 01/05/19 21:37 Dose: 10 mg Phenytoin Sodium (Dilantin -) 100 mg PO BID [facility] Last Admin: 01/06/19 10:05 Dose: 100 mg - Objective Vital Signs: Vital Signs Temperature 97.5 F L 01/06/19 06:00 Pulse Rate 64 01/06/19 06:00 Respiratory Rate 18 01/06/19 06:00 Blood Pressure 113/65 01/06/19 06:00 O2 Sat by Pulse Oximetry (%) 97 01/06/19 09:00 Constitutional: Yes: Anxious, Cachectic Eyes: Yes: WNL HENT: Yes: WNL Neck: Yes: WNL Cardiovascular: Yes: Regular Rate and Rhythm, S1, S2 Respiratory: Yes: Diminished, Rhonchi (FEW RHONCHI) Gastrointestinal: Yes: Normal Bowel Sounds, Soft Extremities: Yes: WNL Edema: No Labs: CBC, BMP Problem List - Problems (1) HLD (hyperlipidemia) Code(s): E78.5 - HYPERLIPIDEMIA, UNSPECIFIED (2) Respiratory distress Code(s): R06.00 - DYSPNEA, UNSPECIFIED (3) Acute chronic obstructive pulmonary disease with respiratory failure Code(s): J96.00 - ACUTE RESPIRATORY FAILURE, UNSP W HYPOXIA OR HYPERCAPNIA; J44.9 - CHRONIC OBSTRUCTIVE PULMONARY DISEASE, UNSPECIFIED (4) Acute exacerbation of chronic obstructive pulmonary disease (COPD) Code(s): J44.1 - CHRONIC OBSTRUCTIVE PULMONARY DISEASE W (ACUTE) EXACERBATION (5) Anemia Code(s): D64.9 - ANEMIA, UNSPECIFIED (6) CAD (coronary artery disease) Code(s): I25.10 - ATHSCL HEART DISEASE OF [place] CORONARY ARTERY W/O ANG PCTRS (7) CVA (cerebral vascular accident) Code(s): I63.9 - CEREBRAL INFARCTION, UNSPECIFIED (8) Cachexia Code(s): R64 - [place] (9) DVT (deep venous thrombosis) Code(s): I82.409 - ACUTE EMBOLISM AND THOMBOS UNSP DEEP VN UNSP LOWER EXTREMITY (10) GERD (gastroesophageal reflux disease) Code(s): K21.9 - GASTRO-ESOPHAGEAL REFLUX DISEASE WITHOUT ESOPHAGITIS (11) HTN (hypertension) Code(s): I10 - ESSENTIAL (PRIMARY) HYPERTENSION (12) Seizure disorder Code(s): G40.909 - EPILEPSY, UNSP, NOT INTRACTABLE, WITHOUT STATUS EPILEPTICUS Assessment/Plan A/P Acute Hypoxic Respiratory Failure Acute COPD Exacerbation CAD - medrol - inhaled bronchodilators - O2 to keep Spo2 >90% - azithromycin - DVT prophylaxis DR LOPEZ
--- NOTE | 2019-01-06 17:17 | PN ---
Progress Note, Physician History of Present Illness: Pt's breathing is the same like yesterday, is feeling weak. Pt w/o CP, palpitations, abd pain, nausea, diarrhea. - Current Medication List Current Medications: Active Medications Albuterol Sulfate (Ventolin 0.083% Nebulizer Soln -) 1 amp NEB Q6H PRN PRN Reason: SHORT OF BREATH/WHEEZING Last Admin: 01/04/19 22:55 Dose: 1 amp Albuterol/Ipratropium (Duoneb -) 1 amp NEB RQID [facility] Last Admin: 01/06/19 15:52 Dose: 1 amp Atorvastatin Calcium (Lipitor -) 10 mg PO HS [facility] Last Admin: 01/05/19 21:37 Dose: 10 mg Azithromycin (Zithromax -) 500 mg PO DAILY [facility] Last Admin: 01/06/19 10:05 Dose: 500 mg Diltiazem HCl (Cardizem Cd -) 120 mg PO DAILY [facility] Last Admin: 01/06/19 10:04 Dose: 120 mg Guaifenesin (Robitussin Dm -) 10 ml PO Q4H PRN PRN Reason: COUGH Heparin Sodium (Porcine) (Heparin -) 5,000 unit SQ BID [facility] Last Admin: 01/06/19 10:05 Dose: 5,000 unit Lactated Ringer's (Lactated Ringers Solution) 1,000 ml in 1,000 mls @ 50 mls/ hr IV ASDIR [facility] Last Admin: 01/05/19 18:29 Dose: Not Given Magnesium Oxide (Mag-Ox -) 400 mg PO BID [facility] Last Admin: 01/06/19 10:05 Dose: 400 mg Methylprednisolone Sodium Succinate (Solu-Medrol -) 40 mg IVPUSH Q8H-IV [facility] Last Admin: 01/06/19 10:05 Dose: 40 mg Montelukast Sodium (Singulair -) 10 mg PO HS [facility] Last Admin: 01/05/19 21:37 Dose: 10 mg Phenytoin Sodium (Dilantin -) 100 mg PO BID [facility] Last Admin: 01/06/19 10:05 Dose: 100 mg - Objective Vital Signs: Vital Signs Temperature 98.0 F 01/06/19 14:50 Pulse Rate 82 01/06/19 14:50 Respiratory Rate 18 01/06/19 14:50 Blood Pressure 114/70 01/06/19 14:50 O2 Sat by Pulse Oximetry (%) 95 01/06/19 15:52 Constitutional: Yes: No Distress, Calm, Other (Pt is sitting in the chair) Cardiovascular: Yes: Regular Rate and Rhythm, S1, S2 Respiratory: Yes: Regular, Diminished, Rhonchi Gastrointestinal: Yes: Normal Bowel Sounds, Soft. No: Tenderness Edema: No Neurological: Yes: Alert, Oriented Labs: CBC, BMP 01/05/19 08:03 01/05/19 08:03 INR, PTT INR 1.10 (0.83-1.09) H 12/31/18 00:00 Problem List - Problems (1) Respiratory distress Code(s): R06.00 - DYSPNEA, UNSPECIFIED (2) Acute exacerbation of chronic obstructive pulmonary disease (COPD) Code(s): J44.1 - CHRONIC OBSTRUCTIVE PULMONARY DISEASE W (ACUTE) EXACERBATION (3) CAD (coronary artery disease) Code(s): I25.10 - ATHSCL HEART DISEASE OF [place] CORONARY ARTERY W/O ANG PCTRS (4) CVA (cerebral vascular accident) Code(s): I63.9 - CEREBRAL INFARCTION, UNSPECIFIED (5) Cachexia Code(s): R64 - [place]HEXIA (6) HLD (hyperlipidemia) Code(s): E78.5 - HYPERLIPIDEMIA, UNSPECIFIED (7) HTN (hypertension) Code(s): I10 - ESSENTIAL (PRIMARY) HYPERTENSION (8) Seizure disorder Code(s): G40.909 - EPILEPSY, UNSP, NOT INTRACTABLE, WITHOUT STATUS EPILEPTICUS (9) Status post right shoulder hemiarthroplasty Code(s): Z96.611 - PRESENCE OF RIGHT ARTIFICIAL SHOULDER JOINT (10) Hypokalemia Code(s): E87.6 - HYPOKALEMIA Assessment/Plan IV Steroids -tappered to Q8H Abtx PO (as IV [place] and pt doesn't tolerates it). Pulmonary consult is appreciated. AM labs PT case was d/w pt's nurse
[2019-01-06] MEDS: LACTATED RINGERS SOLUTION 1,000 ML/1,000 ML INFUS.BAG IV SCH (17:34)
[2019-01-06] MEDS: PANTOPRAZOLE SOD 40 MG SUSPENSION PACKET PO SCH (22:46)
[2019-01-06] MEDS: ATORVASTATIN CA 10 MG TABLET (FP) PO SCH (22:46)
[2019-01-06] MEDS: MONTELUKAST NA 10 MG TABLET PO SCH (22:46)
[2019-01-07] MEDS: methylPREDNISolone NA SUCC 40 MG/1 ML VIAL IVPUSH SCH ×3 (01:53→17:24)
[2019-01-07] MEDS: ALBUTEROL SO4 2.5/IPRATROPIUM 0.5 INH SOL 3 ML VIAL.NEB. NEB SCH ×4 (07:48→20:30)
[2019-01-07 08:20] LABS: HEMATOCRIT 35.6 % (35.4-49); HEMOGLOBIN 11.2 GM/dL (11.7-16.9); MCH 25.4 pg (25.7-33.7); MCHC 31.4 g/dl (32.0-35.9); MEAN PLT VOLUME 8.5 fl (7.5-11.1); PLATELET COUNT 169 K/MM3 (134-434); RBC 4.39 M/mm3 (4.00-5.60); RDW 16.6 % (11.9-15.9); WHITE BLOOD COUNT 16.3 K/mm3 (4.0-10.0)
[2019-01-07 08:52] LABS: ALBUMIN 2.5 g/dl (3.4-5.0); ALK PHOS 88 U/L (45-117); ANION GAP 4 MMOL/L (8-16); BILIRUBIN,TOTAL 0.2 mg/dL (0.2-1); BLOOD UREA NITROGEN 20 mg/dL (7-18); CALCIUM 7.6 mg/dL (8.5-10.1); CHLORIDE 101 mmol/L (98-107); CO2 31 mmol/L (21-32); CREATININE 0.4 mg/dL (0.55-1.3); GLUCOSE,RANDOM 78 mg/dL (74-106); POTASSIUM 4.4 mmol/L (3.5-5.1); SGOT/AST 14 U/L (15-37); SGPT/ALT 40 U/L (13-61); SODIUM 136 mmol/L (136-145); TOT PROT 5.3 g/dl (6.4-8.2)
[2019-01-07] MEDS: HEPARIN NA (PORCINE) 5,000 UNITS/ML 1ML VIAL SQ SCH ×2 (10:21→21:15)
[2019-01-07] MEDS: AZITHROMYCIN 250 MG TABLET PO SCH (10:22)
[2019-01-07] MEDS: MAGNESIUM OXIDE 400 MG TABLET (FP) PO SCH ×2 (10:22→21:15)
[2019-01-07] MEDS: PHENYTOIN NA EXTENDED 100 MG CAPSULE (FP) PO SCH ×2 (10:22→21:15)
[2019-01-07] MEDS: PANTOPRAZOLE SOD 40 MG SUSPENSION PACKET PO SCH (10:22)
--- NOTE | 2019-01-07 14:47 | PN ---
Progress Note, Physician History of Present Illness: pulmonary alert,oob-chair,-resp distress - Current Medication List Current Medications: Active Medications Albuterol Sulfate (Ventolin 0.083% Nebulizer Soln -) 1 amp NEB Q6H PRN PRN Reason: SHORT OF BREATH/WHEEZING Last Admin: 01/04/19 22:55 Dose: 1 amp Albuterol/Ipratropium (Duoneb -) 1 amp NEB RQID [facility] Last Admin: 01/07/19 11:19 Dose: 1 amp Atorvastatin Calcium (Lipitor -) 10 mg PO HS [facility] Last Admin: 01/06/19 22:46 Dose: 10 mg Azithromycin (Zithromax -) 500 mg PO DAILY [facility] Last Admin: 01/07/19 10:22 Dose: 500 mg Diltiazem HCl (Cardizem Cd -) 120 mg PO DAILY [facility] Last Admin: 01/07/19 10:22 Dose: 120 mg Guaifenesin (Robitussin Dm -) 10 ml PO Q4H PRN PRN Reason: COUGH Heparin Sodium (Porcine) (Heparin -) 5,000 unit SQ BID [facility] Last Admin: 01/07/19 10:21 Dose: 5,000 unit Magnesium Oxide (Mag-Ox -) 400 mg PO BID [facility] Last Admin: 01/07/19 10:22 Dose: 400 mg Methylprednisolone Sodium Succinate (Solu-Medrol -) 40 mg IVPUSH Q8H-IV [facility] Last Admin: 01/07/19 10:21 Dose: 40 mg Montelukast Sodium (Singulair -) 10 mg PO [facility] Last Admin: 01/06/19 22:46 Dose: 10 mg Pantoprazole Sodium (Protonix Packets For Oral Suspension -) 40 mg PO DAILY [facility] Last Admin: 01/07/19 10:22 Dose: 40 mg Phenytoin Sodium (Dilantin -) 100 mg PO BID [facility] Last Admin: 01/07/19 10:22 Dose: 100 mg - Objective Vital Signs: Vital Signs Temperature 97.6 F 01/07/19 10:00 Pulse Rate 71 01/07/19 10:00 Respiratory Rate 18 01/07/19 10:00 Blood Pressure 115/68 01/07/19 10:00 O2 Sat by Pulse Oximetry (%) 95 01/06/19 15:52 Constitutional: Yes: Calm, Cachectic Eyes: Yes: WNL HENT: Yes: WNL Neck: Yes: WNL Cardiovascular: Yes: Regular Rate and Rhythm, S1, S2 Respiratory: Yes: Diminished Gastrointestinal: Yes: Normal Bowel Sounds, Soft Extremities: Yes: WNL Edema: No Labs: CBC, BMP 01/07/19 08:10 01/07/19 08:10 INR, PTT INR 1.10 (0.83-1.09) H 12/31/18 00:00 Problem List - Problems (1) HLD (hyperlipidemia) Code(s): E78.5 - HYPERLIPIDEMIA, UNSPECIFIED (2) Respiratory distress Code(s): R06.00 - DYSPNEA, UNSPECIFIED (3) Acute chronic obstructive pulmonary disease with respiratory failure Code(s): J96.00 - ACUTE RESPIRATORY FAILURE, UNSP W HYPOXIA OR HYPERCAPNIA; J44.9 - CHRONIC OBSTRUCTIVE PULMONARY DISEASE, UNSPECIFIED (4) Acute exacerbation of chronic obstructive pulmonary disease (COPD) Code(s): J44.1 - CHRONIC OBSTRUCTIVE PULMONARY DISEASE W (ACUTE) EXACERBATION (5) Anemia Code(s): D64.9 - ANEMIA, UNSPECIFIED (6) CAD (coronary artery disease) Code(s): I25.10 - ATHSCL HEART DISEASE OF [place] CORONARY ARTERY W/O ANG PCTRS (7) CVA (cerebral vascular accident) Code(s): I63.9 - CEREBRAL INFARCTION, UNSPECIFIED (8) Cachexia Code(s): R64 - [place]HEXIA (9) DVT (deep venous thrombosis) Code(s): I82.409 - ACUTE EMBOLISM AND THOMBOS UNSP DEEP VN UNSP LOWER EXTREMITY (10) GERD (gastroesophageal reflux disease) Code(s): K21.9 - GASTRO-ESOPHAGEAL REFLUX DISEASE WITHOUT ESOPHAGITIS (11) HTN (hypertension) Code(s): I10 - ESSENTIAL (PRIMARY) HYPERTENSION (12) Seizure disorder Code(s): G40.909 - EPILEPSY, UNSP, NOT INTRACTABLE, WITHOUT STATUS EPILEPTICUS Assessment/Plan A/P Acute Hypoxic Respiratory Failure improved Acute COPD Exacerbation CAD - medrol taper - inhaled bronchodilators - O2 to keep Spo2 >90% - azithromycin - DVT prophylaxis DR LOPEZ
[2019-01-07] MEDS: ALBUTEROL SO4 0.083% IH SOL 2.5 MG/3 ML VIAL.NEB. NEB PRN (15:29)
[2019-01-07] MEDS: guaiFENesin/D-METHORPHAN HB 10 ML UNIT-DOSE CUPS PO PRN (18:39)
--- NOTE | 2019-01-07 19:55 | PN ---
Progress Note, Physician History of Present Illness: Pt's breathing is the same like yesterday, is feeling weak. Pt w/o CP, palpitations, abd pain, nausea, diarrhea. - Current Medication List Current Medications: Active Medications Albuterol Sulfate (Ventolin 0.083% Nebulizer Soln -) 1 amp NEB Q6H PRN PRN Reason: SHORT OF BREATH/WHEEZING Last Admin: 01/07/19 15:29 Dose: 1 amp Albuterol/Ipratropium (Duoneb -) 1 amp NEB RQID [facility] Last Admin: 01/07/19 15:38 Dose: 1 amp Atorvastatin Calcium (Lipitor -) 10 mg PO HS [facility] Last Admin: 01/06/19 22:46 Dose: 10 mg Azithromycin (Zithromax -) 500 mg PO DAILY [facility] Last Admin: 01/07/19 10:22 Dose: 500 mg Diltiazem HCl (Cardizem Cd -) 120 mg PO DAILY [facility] Last Admin: 01/07/19 10:22 Dose: 120 mg Guaifenesin (Robitussin Dm -) 10 ml PO Q4H PRN PRN Reason: COUGH Last Admin: 01/07/19 18:39 Dose: 10 ml Heparin Sodium (Porcine) (Heparin -) 5,000 unit SQ BID [facility] Last Admin: 01/07/19 10:21 Dose: 5,000 unit Magnesium Oxide (Mag-Ox -) 400 mg PO BID [facility] Last Admin: 01/07/19 10:22 Dose: 400 mg Methylprednisolone Sodium Succinate (Solu-Medrol -) 40 mg IVPUSH Q8H-IV [facility] Last Admin: 01/07/19 17:24 Dose: 40 mg Montelukast Sodium (Singulair -) 10 mg PO HS [facility] Last Admin: 01/06/19 22:46 Dose: 10 mg Pantoprazole Sodium (Protonix Packets For Oral Suspension -) 40 mg PO DAILY [facility] Last Admin: 01/07/19 10:22 Dose: 40 mg Phenytoin Sodium (Dilantin -) 100 mg PO BID [facility] Last Admin: 01/07/19 10:22 Dose: 100 mg - Objective Vital Signs: Vital Signs Temperature 97.7 F 01/07/19 16:30 Pulse Rate 83 01/07/19 16:30 Respiratory Rate 18 01/07/19 16:30 Blood Pressure 107/56 L 01/07/19 16:30 O2 Sat by Pulse Oximetry (%) 95 01/07/19 09:00 Constitutional: Yes: No Distress, Calm Cardiovascular: Yes: Regular Rate and Rhythm, S1, S2 Respiratory: Yes: Regular, CTA Bilaterally, Diminished Gastrointestinal: Yes: Normal Bowel Sounds, Soft. No: Tenderness Edema: No Neurological: Yes: Alert, Oriented Labs: CBC, BMP 01/07/19 08:10 01/07/19 08:10 INR, PTT INR 1.10 (0.83-1.09) H 12/31/18 00:00 Problem List - Problems (1) Respiratory distress Code(s): R06.00 - DYSPNEA, UNSPECIFIED (2) Acute exacerbation of chronic obstructive pulmonary disease (COPD) Code(s): J44.1 - CHRONIC OBSTRUCTIVE PULMONARY DISEASE W (ACUTE) EXACERBATION (3) CAD (coronary artery disease) Code(s): I25.10 - ATHSCL HEART DISEASE OF [place] CORONARY ARTERY W/O ANG PCTRS (4) CVA (cerebral vascular accident) Code(s): I63.9 - CEREBRAL INFARCTION, UNSPECIFIED (5) Cachexia Code(s): R64 - [place] (6) HLD (hyperlipidemia) Code(s): E78.5 - HYPERLIPIDEMIA, UNSPECIFIED (7) HTN (hypertension) Code(s): I10 - ESSENTIAL (PRIMARY) HYPERTENSION (8) Seizure disorder Code(s): G40.909 - EPILEPSY, UNSP, NOT INTRACTABLE, WITHOUT STATUS EPILEPTICUS (9) Status post right shoulder hemiarthroplasty Code(s): Z96.611 - PRESENCE OF RIGHT ARTIFICIAL SHOULDER JOINT (10) Hypokalemia Code(s): E87.6 - HYPOKALEMIA Assessment/Plan IV Steroids -tappered to Q8H Abtx PO (as IV [place] and pt doesn't tolerates it). Pulmonary consult is appreciated. AM labs PT case was d/w pt's nurse
[2019-01-07] MEDS: MONTELUKAST NA 10 MG TABLET PO SCH (21:15)
[2019-01-07] MEDS: ATORVASTATIN CA 10 MG TABLET (FP) PO SCH (21:15)
[2019-01-08] MEDS: methylPREDNISolone NA SUCC 40 MG/1 ML VIAL IVPUSH SCH ×3 (02:32→22:29)
[2019-01-08] MEDS: ALBUTEROL SO4 2.5/IPRATROPIUM 0.5 INH SOL 3 ML VIAL.NEB. NEB SCH ×4 (08:28→19:55)
[2019-01-08] MEDS: PANTOPRAZOLE SOD 40 MG SUSPENSION PACKET PO SCH (10:08)
[2019-01-08] MEDS: AZITHROMYCIN 250 MG TABLET PO SCH (10:08)
[2019-01-08] MEDS: HEPARIN NA (PORCINE) 5,000 UNITS/ML 1ML VIAL SQ SCH ×2 (10:08→22:29)
[2019-01-08] MEDS: PHENYTOIN NA EXTENDED 100 MG CAPSULE (FP) PO SCH ×2 (10:08→22:28)
[2019-01-08] MEDS: MAGNESIUM OXIDE 400 MG TABLET (FP) PO SCH ×2 (10:08→22:28)
--- NOTE | 2019-01-08 11:39 | PN ---
Progress Note, Physician History of Present Illness: Pt's breathing is the same like yesterday, brings up white sputum. Pt w/o CP, palpitations, abd pain, nausea, diarrhea. - Current Medication List Current Medications: Active Medications Albuterol Sulfate (Ventolin 0.083% Nebulizer Soln -) 1 amp NEB Q6H PRN PRN Reason: SHORT OF BREATH/WHEEZING Last Admin: 01/07/19 15:29 Dose: 1 amp Albuterol/Ipratropium (Duoneb -) 1 amp NEB RQID [facility] Last Admin: 01/08/19 08:28 Dose: 1 amp Atorvastatin Calcium (Lipitor -) 10 mg PO HS [facility] Last Admin: 01/07/19 21:15 Dose: 10 mg Azithromycin (Zithromax -) 500 mg PO DAILY [facility] Last Admin: 01/08/19 10:08 Dose: 500 mg Diltiazem HCl (Cardizem Cd -) 120 mg PO DAILY [facility] Last Admin: 01/08/19 10:08 Dose: 120 mg Guaifenesin (Robitussin Dm -) 10 ml PO Q4H PRN PRN Reason: COUGH Last Admin: 01/07/19 18:39 Dose: 10 ml Heparin Sodium (Porcine) (Heparin -) 5,000 unit SQ BID [facility] Last Admin: 01/08/19 10:08 Dose: 5,000 unit Magnesium Oxide (Mag-Ox -) 400 mg PO BID [facility] Last Admin: 01/08/19 10:08 Dose: 400 mg Methylprednisolone Sodium Succinate (Solu-Medrol -) 40 mg IVPUSH Q8H-IV [facility] Last Admin: 01/08/19 10:08 Dose: 40 mg Montelukast Sodium (Singulair -) 10 mg PO HS [facility] Last Admin: 01/07/19 21:15 Dose: 10 mg Pantoprazole Sodium (Protonix Packets For Oral Suspension -) 40 mg PO DAILY [facility] Last Admin: 01/08/19 10:08 Dose: 40 mg Phenytoin Sodium (Dilantin -) 100 mg PO BID [facility] Last Admin: 01/08/19 10:08 Dose: 100 mg - Objective Vital Signs: Vital Signs Temperature 97.5 F L 01/08/19 06:42 Pulse Rate 74 01/08/19 06:42 Respiratory Rate 20 01/08/19 06:42 Blood Pressure 114/57 L 01/08/19 06:42 O2 Sat by Pulse Oximetry (%) 98 01/08/19 08:25 Constitutional: Yes: No Distress, Calm Cardiovascular: Yes: Regular Rate and Rhythm, S1, S2 Respiratory: Yes: Regular, CTA Bilaterally, Diminished Gastrointestinal: Yes: Normal Bowel Sounds, Soft. No: Tenderness Edema: No Neurological: Yes: Alert, Oriented Labs: CBC, BMP 01/07/19 08:10 01/07/19 08:10 INR, PTT INR 1.10 (0.83-1.09) H 12/31/18 00:00 Problem List - Problems (1) Respiratory distress Code(s): R06.00 - DYSPNEA, UNSPECIFIED (2) Acute exacerbation of chronic obstructive pulmonary disease (COPD) Code(s): J44.1 - CHRONIC OBSTRUCTIVE PULMONARY DISEASE W (ACUTE) EXACERBATION (3) CAD (coronary artery disease) Code(s): I25.10 - ATHSCL HEART DISEASE OF [place] CORONARY ARTERY W/O ANG PCTRS (4) CVA (cerebral vascular accident) Code(s): I63.9 - CEREBRAL INFARCTION, UNSPECIFIED (5) Cachexia Code(s): R64 - [place] (6) HLD (hyperlipidemia) Code(s): E78.5 - HYPERLIPIDEMIA, UNSPECIFIED (7) HTN (hypertension) Code(s): I10 - ESSENTIAL (PRIMARY) HYPERTENSION (8) Seizure disorder Code(s): G40.909 - EPILEPSY, UNSP, NOT INTRACTABLE, WITHOUT STATUS EPILEPTICUS (9) Status post right shoulder hemiarthroplasty Code(s): Z96.611 - PRESENCE OF RIGHT ARTIFICIAL SHOULDER JOINT (10) Hypokalemia Code(s): E87.6 - HYPOKALEMIA Assessment/Plan IV Steroids -tappered to Q8H Abtx PO (as IV [place] and pt doesn't tolerates it). Pulmonary consult is appreciated. AM labs PT, OOBTC case was d/w pt's nurse
--- NOTE | 2019-01-08 14:05 | PN ---
Progress Note, Physician History of Present Illness: pulmonary alert,dyspneic,agitated - Current Medication List Current Medications: Active Medications Albuterol Sulfate (Ventolin 0.083% Nebulizer Soln -) 1 amp NEB Q6H PRN PRN Reason: SHORT OF BREATH/WHEEZING Last Admin: 01/07/19 15:29 Dose: 1 amp Albuterol/Ipratropium (Duoneb -) 1 amp NEB RQID [facility] Last Admin: 01/08/19 11:52 Dose: 1 amp Atorvastatin Calcium (Lipitor -) 10 mg PO HS [facility] Last Admin: 01/07/19 21:15 Dose: 10 mg Azithromycin (Zithromax -) 500 mg PO DAILY [facility] Last Admin: 01/08/19 10:08 Dose: 500 mg Diltiazem HCl (Cardizem Cd -) 120 mg PO DAILY [facility] Last Admin: 01/08/19 10:08 Dose: 120 mg Guaifenesin (Robitussin Dm -) 10 ml PO Q4H PRN PRN Reason: COUGH Last Admin: 01/07/19 18:39 Dose: 10 ml Heparin Sodium (Porcine) (Heparin -) 5,000 unit SQ BID [facility] Last Admin: 01/08/19 10:08 Dose: 5,000 unit Magnesium Oxide (Mag-Ox -) 400 mg PO BID [facility] Last Admin: 01/08/19 10:08 Dose: 400 mg Methylprednisolone Sodium Succinate (Solu-Medrol -) 40 mg IVPUSH Q8H-IV [facility] Last Admin: 01/08/19 10:08 Dose: 40 mg Montelukast Sodium (Singulair -) 10 mg PO [facility] Last Admin: 01/07/19 21:15 Dose: 10 mg Pantoprazole Sodium (Protonix Packets For Oral Suspension -) 40 mg PO DAILY [facility] Last Admin: 01/08/19 10:08 Dose: 40 mg Phenytoin Sodium (Dilantin -) 100 mg PO BID [facility] Last Admin: 01/08/19 10:08 Dose: 100 mg - Objective Vital Signs: Vital Signs Temperature 96.4 F L 01/08/19 11:50 Pulse Rate 77 01/08/19 11:50 Respiratory Rate 16 01/08/19 11:50 Blood Pressure 102/58 L 01/08/19 11:50 O2 Sat by Pulse Oximetry (%) 94 L 01/08/19 11:50 Constitutional: Yes: Anxious, Cachectic Eyes: Yes: WNL HENT: Yes: WNL Neck: Yes: WNL Cardiovascular: Yes: Regular Rate and Rhythm, S1, S2 Respiratory: Yes: Diminished Gastrointestinal: Yes: Normal Bowel Sounds, Soft Extremities: Yes: WNL Edema: No Labs: CBC, BMP Problem List - Problems (1) HLD (hyperlipidemia) Code(s): E78.5 - HYPERLIPIDEMIA, UNSPECIFIED (2) Respiratory distress Code(s): R06.00 - DYSPNEA, UNSPECIFIED (3) Acute chronic obstructive pulmonary disease with respiratory failure Code(s): J96.00 - ACUTE RESPIRATORY FAILURE, UNSP W HYPOXIA OR HYPERCAPNIA; J44.9 - CHRONIC OBSTRUCTIVE PULMONARY DISEASE, UNSPECIFIED (4) Acute exacerbation of chronic obstructive pulmonary disease (COPD) Code(s): J44.1 - CHRONIC OBSTRUCTIVE PULMONARY DISEASE W (ACUTE) EXACERBATION (5) Anemia Code(s): D64.9 - ANEMIA, UNSPECIFIED (6) CAD (coronary artery disease) Code(s): I25.10 - ATHSCL HEART DISEASE OF [place] CORONARY ARTERY W/O ANG PCTRS (7) CVA (cerebral vascular accident) Code(s): I63.9 - CEREBRAL INFARCTION, UNSPECIFIED (8) Cachexia Code(s): R64 - CACHEXIA (9) DVT (deep venous thrombosis) Code(s): I82.409 - ACUTE EMBOLISM AND THOMBOS UNSP DEEP VN UNSP LOWER EXTREMITY (10) GERD (gastroesophageal reflux disease) Code(s): K21.9 - GASTRO-ESOPHAGEAL REFLUX DISEASE WITHOUT ESOPHAGITIS (11) HTN (hypertension) Code(s): I10 - ESSENTIAL (PRIMARY) HYPERTENSION (12) Seizure disorder Code(s): G40.909 - EPILEPSY, UNSP, NOT INTRACTABLE, WITHOUT STATUS EPILEPTICUS Assessment/Plan A/P Acute Hypoxic Respiratory Failure improved Acute COPD Exacerbation CAD - medrol taper - inhaled bronchodilators - O2 to keep Spo2 >90% - azithromycin - DVT prophylaxis DR LOPEZ
[2019-01-08] MEDS ORDERED: methylPREDNISolone NA SUCC 40 MG/1 ML VIAL IVPUSH SCH (14:15)
[2019-01-08] MEDS: ATORVASTATIN CA 10 MG TABLET (FP) PO SCH (22:28)
[2019-01-08] MEDS: MONTELUKAST NA 10 MG TABLET PO SCH (22:29)
[2019-01-09] MEDS: ALBUTEROL SO4 0.083% IH SOL 2.5 MG/3 ML VIAL.NEB. NEB PRN (04:56)
[2019-01-09] MEDS: ALBUTEROL SO4 2.5/IPRATROPIUM 0.5 INH SOL 3 ML VIAL.NEB. NEB SCH ×4 (07:52→20:09)
[2019-01-09] MEDS: AZITHROMYCIN 250 MG TABLET PO SCH (09:53)
[2019-01-09] MEDS: PHENYTOIN NA EXTENDED 100 MG CAPSULE (FP) PO SCH ×2 (09:53→21:13)
[2019-01-09] MEDS: PANTOPRAZOLE SOD 40 MG SUSPENSION PACKET PO SCH (09:53)
[2019-01-09] MEDS: MAGNESIUM OXIDE 400 MG TABLET (FP) PO SCH ×2 (09:53→21:13)
[2019-01-09] MEDS: HEPARIN NA (PORCINE) 5,000 UNITS/ML 1ML VIAL SQ SCH ×2 (09:53→21:13)
[2019-01-09] MEDS: methylPREDNISolone NA SUCC 40 MG/1 ML VIAL IVPUSH SCH ×2 (09:54→21:13)
--- NOTE | 2019-01-09 12:40 | PN ---
Progress Note, Physician History of Present Illness: pulmonary alert,-resp distress - Current Medication List Current Medications: Active Medications Albuterol Sulfate (Ventolin 0.083% Nebulizer Soln -) 1 amp NEB Q6H PRN PRN Reason: SHORT OF BREATH/WHEEZING Last Admin: 01/09/19 04:56 Dose: 1 amp Albuterol/Ipratropium (Duoneb -) 1 amp NEB RQID [facility] Last Admin: 01/09/19 11:20 Dose: 1 amp Atorvastatin Calcium (Lipitor -) 10 mg PO HS [facility] Last Admin: 01/08/19 22:28 Dose: 10 mg Azithromycin (Zithromax -) 500 mg PO DAILY [facility] Last Admin: 01/09/19 09:53 Dose: 500 mg Diltiazem HCl (Cardizem Cd -) 120 mg PO DAILY [facility] Last Admin: 01/09/19 11:10 Dose: Not Given Guaifenesin (Robitussin Dm -) 10 ml PO Q4H PRN PRN Reason: COUGH Last Admin: 01/07/19 18:39 Dose: 10 ml Heparin Sodium (Porcine) (Heparin -) 5,000 unit SQ BID [facility] Last Admin: 01/09/19 09:53 Dose: 5,000 unit Magnesium Oxide (Mag-Ox -) 400 mg PO BID [facility] Last Admin: 01/09/19 09:53 Dose: 400 mg Methylprednisolone Sodium Succinate (Solu-Medrol -) 40 mg IVPUSH BID [facility] Last Admin: 01/09/19 09:54 Dose: 40 mg Montelukast Sodium (Singulair -) 10 mg PO [facility] Last Admin: 01/08/19 22:29 Dose: 10 mg Pantoprazole Sodium (Protonix Packets For Oral Suspension -) 40 mg PO DAILY [facility] Last Admin: 01/09/19 09:53 Dose: 40 mg Phenytoin Sodium (Dilantin -) 100 mg PO BID [facility] Last Admin: 01/09/19 09:53 Dose: 100 mg - Objective Vital Signs: Vital Signs Temperature 97.3 F L 01/09/19 10:05 Pulse Rate 79 01/09/19 10:05 Respiratory Rate 16 01/09/19 10:05 Blood Pressure 100/51 L 01/09/19 10:05 O2 Sat by Pulse Oximetry (%) 95 01/09/19 07:51 Constitutional: Yes: Calm, Cachectic Eyes: Yes: WNL HENT: Yes: WNL Neck: Yes: WNL Cardiovascular: Yes: Regular Rate and Rhythm, S1, S2 Respiratory: Yes: Rhonchi (few scattered rhonchi) Gastrointestinal: Yes: Normal Bowel Sounds, Soft Extremities: Yes: WNL Edema: No Labs: CBC, BMP Problem List - Problems (1) HLD (hyperlipidemia) Code(s): E78.5 - HYPERLIPIDEMIA, UNSPECIFIED (2) Respiratory distress Code(s): R06.00 - DYSPNEA, UNSPECIFIED (3) Acute chronic obstructive pulmonary disease with respiratory failure Code(s): J96.00 - ACUTE RESPIRATORY FAILURE, UNSP W HYPOXIA OR HYPERCAPNIA; J44.9 - CHRONIC OBSTRUCTIVE PULMONARY DISEASE, UNSPECIFIED (4) Acute exacerbation of chronic obstructive pulmonary disease (COPD) Code(s): J44.1 - CHRONIC OBSTRUCTIVE PULMONARY DISEASE W (ACUTE) EXACERBATION (5) Anemia Code(s): D64.9 - ANEMIA, UNSPECIFIED (6) CAD (coronary artery disease) Code(s): I25.10 - ATHSCL HEART DISEASE OF [place] CORONARY ARTERY W/O ANG PCTRS (7) CVA (cerebral vascular accident) Code(s): I63.9 - CEREBRAL INFARCTION, UNSPECIFIED (8) Cachexia Code(s): R64 - CACHEXIA (9) DVT (deep venous thrombosis) Code(s): I82.409 - ACUTE EMBOLISM AND THOMBOS UNSP DEEP VN UNSP LOWER EXTREMITY (10) GERD (gastroesophageal reflux disease) Code(s): K21.9 - GASTRO-ESOPHAGEAL REFLUX DISEASE WITHOUT ESOPHAGITIS (11) HTN (hypertension) Code(s): I10 - ESSENTIAL (PRIMARY) HYPERTENSION (12) Seizure disorder Code(s): G40.909 - EPILEPSY, UNSP, NOT INTRACTABLE, WITHOUT STATUS EPILEPTICUS Assessment/Plan A/P Acute Hypoxic Respiratory Failure improved Acute COPD Exacerbation CAD - continue medrol taper - inhaled bronchodilators - O2 to keep Spo2 >90% - azithromycin - DVT prophylaxis DR LOPEZ
--- NOTE | 2019-01-09 16:51 | PN ---
Progress Note, Physician History of Present Illness: Pt's breathing is the unchanged, brings up white sputum. Pt w/o CP, palpitations, abd pain, nausea, diarrhea. Pt meeting started with pt yelling at me, when I entered the room, stating that is too hot and why I don't change that (pt was agitated and at begging I didn't understand him); his nephew and his nurse were in the room. - Current Medication List Current Medications: Active Medications Albuterol Sulfate (Ventolin 0.083% Nebulizer Soln -) 1 amp NEB Q6H PRN PRN Reason: SHORT OF BREATH/WHEEZING Last Admin: 01/09/19 04:56 Dose: 1 amp Albuterol/Ipratropium (Duoneb -) 1 amp NEB RQID [facility] Last Admin: 01/09/19 16:34 Dose: 1 amp Atorvastatin Calcium (Lipitor -) 10 mg PO HS [facility] Last Admin: 01/08/19 22:28 Dose: 10 mg Azithromycin (Zithromax -) 500 mg PO DAILY [facility] Last Admin: 01/09/19 09:53 Dose: 500 mg Diltiazem HCl (Cardizem Cd -) 120 mg PO DAILY [facility] Last Admin: 01/09/19 11:10 Dose: Not Given Guaifenesin (Robitussin Dm -) 10 ml PO Q4H PRN PRN Reason: COUGH Last Admin: 01/07/19 18:39 Dose: 10 ml Heparin Sodium (Porcine) (Heparin -) 5,000 unit SQ BID [facility] Last Admin: 01/09/19 09:53 Dose: 5,000 unit Magnesium Oxide (Mag-Ox -) 400 mg PO BID [facility] Last Admin: 01/09/19 09:53 Dose: 400 mg Methylprednisolone Sodium Succinate (Solu-Medrol -) 40 mg IVPUSH BID [facility] Last Admin: 01/09/19 09:54 Dose: 40 mg Montelukast Sodium (Singulair -) 10 mg PO [facility] Last Admin: 01/08/19 22:29 Dose: 10 mg Pantoprazole Sodium (Protonix Packets For Oral Suspension -) 40 mg PO DAILY [facility] Last Admin: 01/09/19 09:53 Dose: 40 mg Phenytoin Sodium (Dilantin -) 100 mg PO BID [facility] Last Admin: 01/09/19 09:53 Dose: 100 mg - Objective Vital Signs: Vital Signs Temperature 97.3 F L 01/09/19 10:05 Pulse Rate 79 01/09/19 10:05 Respiratory Rate 16 01/09/19 10:05 Blood Pressure 100/51 L 01/09/19 10:05 O2 Sat by Pulse Oximetry (%) 95 01/09/19 07:51 Constitutional: Yes: No Distress, Calm Cardiovascular: Yes: Regular Rate and Rhythm, S1, S2 Respiratory: Yes: Regular, Diminished. No: Rhonchi Gastrointestinal: Yes: Normal Bowel Sounds, Soft. No: Tenderness Edema: No Neurological: Yes: Alert, Oriented (to place, persons, his condition.) Labs: CBC, BMP 01/07/19 08:10 01/07/19 08:10 INR, PTT INR 1.10 (0.83-1.09) H 12/31/18 00:00 Problem List - Problems (1) Respiratory distress Code(s): R06.00 - DYSPNEA, UNSPECIFIED (2) Acute exacerbation of chronic obstructive pulmonary disease (COPD) Code(s): J44.1 - CHRONIC OBSTRUCTIVE PULMONARY DISEASE W (ACUTE) EXACERBATION (3) CAD (coronary artery disease) Code(s): I25.10 - ATHSCL HEART DISEASE OF [place] CORONARY ARTERY W/O ANG PCTRS (4) CVA (cerebral vascular accident) Code(s): I63.9 - CEREBRAL INFARCTION, UNSPECIFIED (5) Cachexia Code(s): R64 - CACHEXIA (6) HLD (hyperlipidemia) Code(s): E78.5 - HYPERLIPIDEMIA, UNSPECIFIED (7) HTN (hypertension) Code(s): I10 - ESSENTIAL (PRIMARY) HYPERTENSION (8) Seizure disorder Code(s): G40.909 - EPILEPSY, UNSP, NOT INTRACTABLE, WITHOUT STATUS EPILEPTICUS (9) Status post right shoulder hemiarthroplasty Code(s): Z96.611 - PRESENCE OF RIGHT ARTIFICIAL SHOULDER JOINT (10) Hypokalemia Code(s): E87.6 - HYPOKALEMIA Assessment/Plan IV Steroids -tapered to Q12H Abtx PO (as IV [place] and pt doesn't tolerates it). Pulmonary consult is appreciated. PT, OOBTC Pt would like to go home. To check with PT for safety. Pt condition was reviewed with pt and his nephew (at bedside). Pt and nephew are aware that pt my require Rehab and both would want pt to go to [facility]. Case was d/w pt's nurse
[2019-01-09] MEDS: ATORVASTATIN CA 10 MG TABLET (FP) PO SCH (21:13)
[2019-01-09] MEDS: MONTELUKAST NA 10 MG TABLET PO SCH (21:13)
[2019-01-10] MEDS: ALBUTEROL SO4 0.083% IH SOL 2.5 MG/3 ML VIAL.NEB. NEB PRN (01:19)
[2019-01-10] MEDS: ALBUTEROL SO4 2.5/IPRATROPIUM 0.5 INH SOL 3 ML VIAL.NEB. NEB SCH ×4 (08:02→20:00)
--- NOTE | 2019-01-10 09:52 | PN ---
Progress Note (short form) - Note Progress Note: PULMONARY Breathing slowly improving. +cough with white sputum. c/o hot flashes. Vital Signs Period Temp Pulse Resp BP Sys/Fernández Pulse Ox Last 24 Hr 97.3 F-98.0 F 79-99 16-20 100-129/51-83 98-98 Gen: NAD at rest Heart: RRR Lung: distant breath sounds Abd: soft, nontender Ext: no edema CBC, BMP 01/07/19 08:10 01/07/19 08:10 Active Medications Albuterol Sulfate (Ventolin 0.083% Nebulizer Soln -) 1 amp NEB Q6H PRN PRN Reason: SHORT OF BREATH/WHEEZING Last Admin: 01/10/19 01:19 Dose: 1 amp Albuterol/Ipratropium (Duoneb -) 1 amp NEB RQID [facility] Last Admin: 01/10/19 08:02 Dose: 1 amp Atorvastatin Calcium (Lipitor -) 10 mg PO HS [facility] Last Admin: 01/09/19 21:13 Dose: 10 mg Azithromycin (Zithromax -) 500 mg PO DAILY [facility] Last Admin: 01/09/19 09:53 Dose: 500 mg Diltiazem HCl (Cardizem Cd -) 120 mg PO DAILY [facility] Last Admin: 01/09/19 11:10 Dose: Not Given Guaifenesin (Robitussin Dm -) 10 ml PO Q4H PRN PRN Reason: COUGH Last Admin: 01/07/19 18:39 Dose: 10 ml Heparin Sodium (Porcine) (Heparin -) 5,000 unit SQ BID [facility] Last Admin: 01/09/19 21:13 Dose: 5,000 unit Magnesium Oxide (Mag-Ox -) 400 mg PO BID [facility] Last Admin: 01/09/19 21:13 Dose: 400 mg Methylprednisolone Sodium Succinate (Solu-Medrol -) 40 mg IVPUSH BID [facility] Last Admin: 01/09/19 21:13 Dose: 40 mg Montelukast Sodium (Singulair -) 10 mg PO HS [facility] Last Admin: 01/09/19 21:13 Dose: 10 mg Pantoprazole Sodium (Protonix Packets For Oral Suspension -) 40 mg PO DAILY [facility] Last Admin: 01/09/19 09:53 Dose: 40 mg Phenytoin Sodium (Dilantin -) 100 mg PO BID [facility] Last Admin: 01/09/19 21:13 Dose: 100 mg A/P Acute Hypoxic Respiratory Failure Acute COPD Exacerbation CAD - can change steroids to PO prednisone 40mg daily and taper as outpt - inhaled bronchodilators - O2 to keep Spo2 >90% - can d/c azithromycin - DVT prophylaxis
[2019-01-10] MEDS ORDERED: PT OWN MED DRAWER 7, Y5N ONE (10:10)
[2019-01-10] MEDS: guaiFENesin/D-METHORPHAN HB 10 ML UNIT-DOSE CUPS PO PRN (10:34)
[2019-01-10] MEDS: MAGNESIUM OXIDE 400 MG TABLET (FP) PO SCH ×2 (10:34→22:19)
[2019-01-10] MEDS: PHENYTOIN NA EXTENDED 100 MG CAPSULE (FP) PO SCH ×2 (10:34→22:19)
[2019-01-10] MEDS: PANTOPRAZOLE SOD 40 MG SUSPENSION PACKET PO SCH (10:34)
[2019-01-10] MEDS: HEPARIN NA (PORCINE) 5,000 UNITS/ML 1ML VIAL SQ SCH ×2 (10:35→22:19)
[2019-01-10] MEDS: predniSONE 20 MG TABLET (UD) PO SCH (10:50)
[2019-01-10] MEDS: methylPREDNISolone NA SUCC 40 MG/1 ML VIAL IVPUSH SCH (11:32)
--- NOTE | 2019-01-10 15:17 | PN ---
Progress Note, Physician History of Present Illness: Pt's breathing is better, still not back to baseline. Pt still brings up white sputum. Pt w/o CP, palpitations, abd pain, nausea, diarrhea. - Current Medication List Current Medications: Active Medications Albuterol Sulfate (Ventolin 0.083% Nebulizer Soln -) 1 amp NEB Q6H PRN PRN Reason: SHORT OF BREATH/WHEEZING Last Admin: 01/10/19 01:19 Dose: 1 amp Albuterol/Ipratropium (Duoneb -) 1 amp NEB RQID [facility] Last Admin: 01/10/19 11:23 Dose: 1 amp Atorvastatin Calcium (Lipitor -) 10 mg PO HS [facility] Last Admin: 01/09/19 21:13 Dose: 10 mg Diltiazem HCl (Cardizem Cd -) 120 mg PO DAILY [facility] Last Admin: 01/10/19 10:34 Dose: 120 mg Guaifenesin (Robitussin Dm -) 10 ml PO Q4H PRN PRN Reason: COUGH Last Admin: 01/07/19 18:39 Dose: 10 ml Heparin Sodium (Porcine) (Heparin -) 5,000 unit SQ BID [facility] Last Admin: 01/10/19 10:35 Dose: 5,000 unit Magnesium Oxide (Mag-Ox -) 400 mg PO BID [facility] Last Admin: 01/10/19 10:34 Dose: 400 mg Montelukast Sodium (Singulair -) 10 mg PO HS [facility] Last Admin: 01/09/19 21:13 Dose: 10 mg Pantoprazole Sodium (Protonix Packets For Oral Suspension -) 40 mg PO DAILY [facility] Last Admin: 01/10/19 10:34 Dose: 40 mg Phenytoin Sodium (Dilantin -) 100 mg PO BID [facility] Last Admin: 01/10/19 10:34 Dose: 100 mg Prednisone (Deltasone -) 40 mg PO DAILY [facility] Last Admin: 01/10/19 10:50 Dose: 40 mg - Objective Vital Signs: Vital Signs Temperature 98.8 F 01/10/19 15:04 Pulse Rate 93 H 01/10/19 15:04 Respiratory Rate 20 01/10/19 15:04 Blood Pressure 109/60 01/10/19 15:04 O2 Sat by Pulse Oximetry (%) 97 01/10/19 09:00 Constitutional: Yes: No Distress, Calm Respiratory: Yes: Regular, CTA Bilaterally, Diminished Gastrointestinal: Yes: Normal Bowel Sounds, Soft. No: Tenderness Edema: No Neurological: Yes: Alert, Oriented Labs: CBC, BMP 01/07/19 08:10 01/07/19 08:10 INR, PTT INR 1.10 (0.83-1.09) H 12/31/18 00:00 Problem List - Problems (1) Respiratory distress Code(s): R06.00 - DYSPNEA, UNSPECIFIED (2) Acute exacerbation of chronic obstructive pulmonary disease (COPD) Code(s): J44.1 - CHRONIC OBSTRUCTIVE PULMONARY DISEASE W (ACUTE) EXACERBATION (3) CAD (coronary artery disease) Code(s): I25.10 - ATHSCL HEART DISEASE OF [place] CORONARY ARTERY W/O ANG PCTRS (4) CVA (cerebral vascular accident) Code(s): I63.9 - CEREBRAL INFARCTION, UNSPECIFIED (5) Cachexia Code(s): R64 - [place]HEXIA (6) HLD (hyperlipidemia) Code(s): E78.5 - HYPERLIPIDEMIA, UNSPECIFIED (7) HTN (hypertension) Code(s): I10 - ESSENTIAL (PRIMARY) HYPERTENSION (8) Seizure disorder Code(s): G40.909 - EPILEPSY, UNSP, NOT INTRACTABLE, WITHOUT STATUS EPILEPTICUS (9) Status post right shoulder hemiarthroplasty Code(s): Z96.611 - PRESENCE OF RIGHT ARTIFICIAL SHOULDER JOINT (10) Hypokalemia Code(s): E87.6 - HYPOKALEMIA (11) Cachexia Code(s): R64 - CACHEXIA (12) Severe malnutrition Code(s): E41 - NUTRITIONAL [place]ASM[place] Assessment/Plan Pt was changed to PO Steroids. Abtx PO (as IV [place] and pt doesn't tolerates it). Pulmonary consult is appreciated. PT, OOBTC Pts condition was d/w CM; waiting for PT evaluation to check for any significant change in pts condition; if not, pt and his nephew would want pt to go to [facility]. Case was d/w pt's nurse
[2019-01-10] MEDS: ATORVASTATIN CA 10 MG TABLET (FP) PO SCH (22:19)
[2019-01-10] MEDS: MONTELUKAST NA 10 MG TABLET PO SCH (22:19)
[2019-01-11] MEDS: ALBUTEROL SO4 2.5/IPRATROPIUM 0.5 INH SOL 3 ML VIAL.NEB. NEB SCH ×3 (07:41→15:56)
--- NOTE | 2019-01-11 10:21 | PN ---
Progress Note (short form) - Note Progress Note: PULMONARY Breathing about the same. +cough. Vital Signs Period Temp Pulse Resp BP Sys/Fernández Pulse Ox Last 24 Hr 97.8 F-98.8 F 74-95 20-22 98-129/50-70 95 Gen: NAD at rest Heart: RRR Lung: distant breath sounds Abd: soft, nontender Ext: no edema CBC, BMP 01/07/19 08:10 01/07/19 08:10 Active Medications Albuterol Sulfate (Ventolin 0.083% Nebulizer Soln -) 1 amp NEB Q6H PRN PRN Reason: SHORT OF BREATH/WHEEZING Last Admin: 01/10/19 01:19 Dose: 1 amp Albuterol/Ipratropium (Duoneb -) 1 amp NEB RQID [facility] Last Admin: 01/11/19 07:41 Dose: 1 amp Atorvastatin Calcium (Lipitor -) 10 mg PO HS [facility] Last Admin: 01/10/19 22:19 Dose: 10 mg Diltiazem HCl (Cardizem Cd -) 120 mg PO DAILY [facility] Last Admin: 01/10/19 10:34 Dose: 120 mg Guaifenesin (Robitussin Dm -) 10 ml PO Q4H PRN PRN Reason: COUGH Last Admin: 01/07/19 18:39 Dose: 10 ml Heparin Sodium (Porcine) (Heparin -) 5,000 unit SQ BID [facility] Last Admin: 01/10/19 22:19 Dose: 5,000 unit Magnesium Oxide (Mag-Ox -) 400 mg PO BID [facility] Last Admin: 01/10/19 22:19 Dose: 400 mg Montelukast Sodium (Singulair -) 10 mg PO [facility] Last Admin: 01/10/19 22:19 Dose: 10 mg Pantoprazole Sodium (Protonix Packets For Oral Suspension -) 40 mg PO DAILY [facility] Last Admin: 01/10/19 10:34 Dose: 40 mg Phenytoin Sodium (Dilantin -) 100 mg PO BID [facility] Last Admin: 01/10/19 22:19 Dose: 100 mg Prednisone (Deltasone -) 40 mg PO DAILY [facility] Last Admin: 01/10/19 10:50 Dose: 40 mg A/P Acute Hypoxic Respiratory Failure Acute COPD Exacerbation CAD - prednisone taper - inhaled bronchodilators - O2 to keep Spo2 >90% - DVT prophylaxis - d/c planning in progress
[2019-01-11] MEDS: predniSONE 20 MG TABLET (UD) PO SCH (10:28)
[2019-01-11] MEDS: MAGNESIUM OXIDE 400 MG TABLET (FP) PO SCH (10:28)
[2019-01-11] MEDS: PHENYTOIN NA EXTENDED 100 MG CAPSULE (FP) PO SCH (10:29)
[2019-01-11] MEDS: HEPARIN NA (PORCINE) 5,000 UNITS/ML 1ML VIAL SQ SCH (10:29)
[2019-01-11] MEDS: PANTOPRAZOLE SOD 40 MG SUSPENSION PACKET PO SCH (10:29)
[2019-01-11 15:45] VITALS: TEMP 98
--- NOTE | 2019-01-11 16:56 | DS ---
Physical Examination Vital Signs: Vital Signs Temperature 98 F 01/11/19 15:43 Pulse Rate 86 01/11/19 15:43 Respiratory Rate 20 01/11/19 15:43 Blood Pressure 110/63 01/11/19 15:43 O2 Sat by Pulse Oximetry (%) 94 L 01/11/19 09:00 Findings/Remarks: Pt is breathing better, still coughs with white sputum. Pt w/o CP, SOB, dizziness, abd pain Constitutional: Yes: No Distress, Calm Cardiovascular: Yes: Regular Rate and Rhythm, S1, S2 Respiratory: Yes: Regular, CTA Bilaterally, Diminished Gastrointestinal: Yes: Normal Bowel Sounds, Soft. No: Tenderness Edema: No Neurological: Yes: Alert, Oriented Labs: CBC, BMP 01/07/19 08:10 01/07/19 08:10 Discharge Summary Reason For Visit: RESPIRATORY DISTRESS,PNEUMONIA Current Active Problems Cachexia (Acute) HLD (hyperlipidemia) (Acute) Hypokalemia (Acute) Respiratory distress (Acute) Status post right shoulder hemiarthroplasty (Acute) Procedures: Principal: CXR Hospital Course: Pt with known Hx/o COPD on chronic oxygen, was transferred form [place] for SOB and cough and low O2 sat (in low 80s). Pt was noticed to be hypoxemia, started on BIPAP/ IV steroids/ abtx. Pt was seen by Pulmonary (Dr Garay/ Chely/ Prashanth). Pt improved slowly, tolerating O2 via NC. Pt to be DC to Rehab, on steroids PO migdalia. Condition: Improved - Instructions Diet, Activity, Other Instructions: Low salt, Low Cholesterol, NCS (while on steroids) Referrals: Joshua Durán MD [Staff Physician] - (within one week from Rehab discharge) Flex Mo MD [Staff Physician] - (in 1 to 2 weeks from Rehab discharge) Disposition: [facility] - Home Medications Comprehensive Discharge Medication List: Ambulatory Orders See Patient Discharge instructions
[2019-01-11 17:11] VITALS: BP 130/70; PULSE 85
== END 2019-01-11 18:25 | DRG 189 ==
LOC: JER 23:33 → JERBED 01-01 00:37 → J5S 01-01 05:06 → J8W 01-03 10:21
PROVIDERS: ADMIT Specialist; ATTEND Specialist
DX: J96.01 Acute respiratory failure with hypoxia (principal); E43 Unspecified severe protein-calorie malnutrition; R64 Cachexia; Z68.1 Body mass index [BMI] 19.9 or less, adult; J44.1 Chronic obstructive pulmonary disease with (acute) exacerbation; I25.10 Atherosclerotic heart disease of native coronary artery without angina pectoris; I10 Essential (primary) hypertension; E78.5 Hyperlipidemia, unspecified; G40.909 Epilepsy, unspecified, not intractable, without status epilepticus; R91.1 Solitary pulmonary nodule; I27.20 Pulmonary hypertension, unspecified; D64.9 Anemia, unspecified; K21.9 Gastro-esophageal reflux disease without esophagitis; E87.6 Hypokalemia; Z95.5 Presence of coronary angioplasty implant and graft; Z99.81 Dependence on supplemental oxygen; Z86.718 Personal history of other venous thrombosis and embolism; Z96.611 Presence of right artificial shoulder joint; Z86.73 Personal history of transient ischemic attack (TIA), and cerebral infarction without residual deficits
CPT/HCPCS: 36415; 36600; 71045-TC-FY; 80048; 80053; 81003; 82375; 82803; 83050; 83605; 83880; 84484; 85025; 85027; 85610; 85730; 87040; 87086; 87186; 93005; 93010; 94640; 94660; 97116-GP; 97162-GP; 99282-25; J1644

== ENCOUNTER 2019-04-17 06:03 | Inpatient (IN) | payer OTHER ==
--- NOTE | 2019-04-17 06:20 | PDOC ---
History of Present Illness - General Chief Complaint: Shortness of Breath Stated Complaint: COPD/SOB Time Seen by Provider: 04/17/19 06:07 History Source: Patient Exam Limitations: No Limitations - History of Present Illness Initial Comments: 04/17/19 06:26 73 yo M pmh COPD, HTN, HLD, CAD BIBEMS from home for a day of worsening SOB at rest in the setting of one week of worsening of chronic cough now productive w/ white sputum and runny nose. He is on home O2 as needed. Otherwise denies f/c/n/ v/chest pain/palpitations/abdpain. Lives alone at home w/ nephews downstairs. No sick contacts. Does not smoke or drink. PMH as above, h/o DVT, h/o seizures, h/o CVA NKDA PCP Dr. Justin Davenport On chart review, patient admitted in January 2019 for COPD and acute respiratory failure requiring BIPAP and IV abx. Past History - Travel Traveled outside of the country in the last 30 days: No - Past Medical History Allergies/Adverse Reactions: Allergies Allergy/AdvReac Type Severity Reaction Status Date / Time No Known Drug Allergies Allergy Verified 01/01/19 02:47 Home Medications: Ambulatory Orders Phenytoin Na Extended [Dilantin -] 100 mg PO BID 06/11/14 Montelukast Na [Singulair -] 10 mg PO HS #90 tablet 06/15/14 Simvastatin [Zocor -] 20 mg PO HS #90 06/15/14 Magnesium Oxide [Mag-Ox -] 400 mg PO BID tablet 09/06/18 Acetaminophen [Tylenol .Regular Strength -] 650 mg PO Q8H 10/18/18 Guaifenesin Dm [Robitussin Dm -] 10 ml PO Q4H PRN cup 10/25/18 Diltiazem Cd [Cardizem Cd -] 120 mg PO DAILY cap.cd.24h 01/11/19 Pantoprazole Suspension [Protonix Packets For Oral Suspension -] 40 mg PO DAILY #20 packet 01/11/19 Albuterol 0.083% Nebulizer Arlyn [Ventolin 0.083% Nebulizer Soln -] 1 amp NEB RQID PRN 04/17/19 Albuterol 2.5/Ipratropium 0.5 [Duoneb -] 1 amp NEB RQID PRN 04/17/19 Anemia: No Cardiac Disorders: Yes (CAD s/p PCI stent) COPD: Yes DVT: No Dialysis: No GI Disorders: Yes (GERD) HTN: Yes Hypercholesterolemia: Yes Kidney Stones: No Seizures: Yes - Surgical History Orthopedic Surgery: Yes (rt total hip) - Immunization History Immunization Up to Date: Yes - Suicide/Smoking/Psychosocial Hx Smoking Status: No Smoking History: Unknown if ever smoked Have you smoked in the past 12 months: No Number of Cigarettes Smoked Daily: 0 If you are a former smoker, when did you quit?: 14 years 'Breaking Loose' booklet given: 02/04/16 Hx Alcohol Use: No Drug/Substance Use Hx: No Substance Use Type: None Hx Substance Use Treatment: No Review of Systems - Review of Systems Able to Perform ROS?: Yes Is the patient limited Bulgarian proficient: No Constitutional: No: Chills, Fever Respiratory: Yes: See HPI, Cough, Shortness of Breath Cardiac (ROS): No: Chest Pain, Irregular Heart Rate, Lightheadedness, Palpitations, Syncope, Chest Tightness ABD/GI: No: Symptoms Reported, Nausea, Vomiting, Abdominal cramping *Physical Exam - Physical Exam Comments: 04/17/19 06:30 GEN: NAD, alert and oriented x3, thin. HEENT: NC/AT, EOMI, PERRLA, MMM CV: S1/S2, RRR, no mrg LUNG: bibasilar crackles, diffuse expiratory wheezes (mild). mildly tachypnic after a few sentences GI: soft, ntnd, +BS EXT: no pitting edema ED Treatment Course - LABORATORY CBC & Chemistry Diagram: 04/17/19 07:30 04/17/19 07:30 Medical Decision Making - Medical Decision Making 04/17/19 06:37 73 yo M w/ COPD, HTN, HLD, CAD BIBEMS from home for increasing SOB at rest in setting of worsening cough (now productive w/ white sputum) and runny nose. Patient is on home O2 as needed. Saturation as low as 81 on room air but improved with NC. Exam significant for bibasilar crackles and diffuse mild expiratory wheezes. DDx - PNA, COPD exacerbation, bronchitis; less likely ACS, PE SOB, cough, runny nose - CBC, CMP, BNP, cardiac - EKG, CXR - nebs, solumedrol admit 04/17/19 07:22 signed out to day team *DC/Admit/Observation/Transfer Diagnosis at time of Disposition: Acute respiratory failure with hypoxia and hypercapnia COPD (chronic obstructive pulmonary disease) Qualifiers: COPD type: unspecified COPD Qualified Code(s): J44.9 - Chronic obstructive pulmonary disease, unspecified - Discharge Dispostion Condition at time of disposition: Fair - Referrals - Patient Instructions - Post Discharge Activity
[2019-04-17 06:21] VITALS: BMI 12.7
[2019-04-17] MEDS ORDERED: ALBUTEROL SO4 2.5/IPRATROPIUM 0.5 INH SOL 3 ML VIAL.NEB. NEB ONE ×2 (06:22→06:23)
[2019-04-17] MEDS ORDERED: methylPREDNISolone NA SUCC 40 MG/1 ML VIAL IVPUSH ONE (06:25)
[2019-04-17] MEDS ORDERED: methylPREDNISolone NA SUCC 40 MG/1 ML VIAL ONE ×3 (06:46→16:38)
--- NOTE | 2019-04-17 06:54 | PDOC ---
Attending Attestation - Resident Resident Name: Matt Mujica - ED Attending Attestation I have performed the following: I have examined & evaluated the patient, The case was reviewed & discussed with the resident, I agree w/resident's findings & plan - HPI HPI: 04/17/19 06:51 Pt comes with COPD exacerbation x 1 week. - Physicial Exam PE: 04/17/19 06:52 Agree with resident exam. Pt is slightly SOB; afebrile; A+Ox3. - Medical Decision Making 04/17/19 06:53 Pt will have labs as well as cxr and EKG. He will be treated with duonebs and steroids. Pt will be signed out to the day team.
[2019-04-17] MEDS ORDERED: CEFTRIAXONE 1,000 MG in DEXTROSE 5%-WATER - 50 ML IVPB ONE (06:56)
[2019-04-17] MEDS ORDERED: AZITHROMYCIN IVPB 500 MG in DEXTROSE 5%-WATER - 250 ML IVPB ONE (06:56)
[2019-04-17 07:43] LABS: BASO % 0.8 % (0-2.0); EOS % 4.8 % (0-4.5); HEMATOCRIT 38.4 % (35.4-49); HEMOGLOBIN 12.2 GM/dL (11.7-16.9); LYMPH % 9.6 % (8-40); MCHC 31.9 g/dl (32.0-35.9); MEAN CELL VOLUME 75.4 fl (80-96); MEAN PLT VOLUME 10.6 fl (7.5-11.1); MONO % 9.6 % (3.8-10.2); NEUT % 75.2 % (42.8-82.8); PLATELET COUNT 200 K/MM3 (134-434); RBC 5.09 M/mm3 (4.00-5.60); RDW 17.9 % (11.9-15.9); WHITE BLOOD COUNT 6.4 K/mm3 (4.0-10.0)
[2019-04-17 07:44] LABS: VENOUS PC02 65.9 mmHg (41-51); VENOUS PH 7.3 (7.31-7.41)
[2019-04-17 07:46] LABS: VENOUS PO2 22.1 mmHg (30-40)
--- NOTE | 2019-04-17 07:46 | PDOC ---
*Physical Exam - Vital Signs Last Vital Signs Temp Pulse Resp BP Pulse Ox 96.8 F L 77 22 H 132/72 92 L 04/17/19 06:16 04/17/19 06:16 04/17/19 06:16 04/17/19 06:16 04/17/19 06:16 <Johanne Queen - Last Filed: 04/17/19 07:43> - Vital Signs Last Vital Signs Temp Pulse Resp BP Pulse Ox 96.8 F L 77 22 H 132/72 92 L 04/17/19 06:16 04/17/19 06:16 04/17/19 06:16 04/17/19 06:16 04/17/19 06:16 <Katty Monet - Last Filed: 04/17/19 11:49> ED Treatment Course - LABORATORY CBC & Chemistry Diagram: 04/17/19 07:30 04/17/19 07:30 - Medications Given in the ED: ED Medications Discontinued Medications Generic Name Dose Route Start Last Admin Trade Name Freq PRN Reason Stop Dose Admin Albuterol/Ipratropium 1 amp 04/17/19 06:22 04/17/19 06:46 Duoneb - NEB 04/17/19 06:23 1 amp ONCE ONE Administration Methylprednisolone Sodium Succinate 40 mg 04/17/19 06:25 04/17/19 07:17 Solu-Medrol - IVPUSH 04/17/19 06:26 40 mg ONCE ONE Administration <Johanne Queen - Last Filed: 04/17/19 07:43> - LABORATORY CBC & Chemistry Diagram: 04/17/19 07:30 04/17/19 07:30 - ADDITIONAL ORDERS Additional order review: Laboratory Results 04/17/19 07:30 VBG pH 7.30 L POC VBG pCO2 65.9 H POC VBG pO2 22.1 L VBG HCO3 31.3 H VBG O2 Sat (Dianna) 24.9 L VBG Base Excess 3.6 H - Medications Given in the ED: ED Medications Discontinued Medications Generic Name Dose Route Start Last Admin Trade Name Freq PRN Reason Stop Dose Admin Albuterol/Ipratropium 1 amp 04/17/19 06:22 04/17/19 06:46 Duoneb - NEB 04/17/19 06:23 1 amp ONCE ONE Administration Methylprednisolone Sodium Succinate 40 mg 04/17/19 06:25 04/17/19 07:17 Solu-Medrol - IVPUSH 04/17/19 06:26 40 mg ONCE ONE Administration <Katty Monet - Last Filed: 04/17/19 11:49> Medical Decision Making - Medical Decision Making 04/17/19 07:43 signed out by night team 73yo M with PMH of COPD, HTN, HLD, CAD w stent BIBA from home for worsening SOB x1d at rest in the setting of one week of worsening of chronic cough now productive w/ white sputum and runny nose. He is on home O2 as needed. ddx includes but not limited to pna, copd exacerbation labs drawn cxr: no acute changes from prior xray <Johanne Queen - Last Filed: 04/17/19 07:43> - Medical Decision Making pt signed out from Dr Almeida at 7AM pending labs, workup and eval in summary as above with HPI detailing 73 YOM with COPD, HTN, HLD, CAD s/p PCI with SOB x 1 day and cough given abx ceftriaxone/azithro to cover for pna. given duonebs, Mag, solumedrol, reassess CXR clear, copd changes with hyperinflated lungs VBG prelim with CO2 retention and likely acute on chronic respiratory acidosis needs ABG, which is normal, but also has been on supp O2 Bipap to blow off CO2, maintain sats closer to 92%, as he is on nasal cannula low flow with sats in 88-89% at bedside labs and lytes_normal, neg trop. admission to [facility] for copd exacerbation, Dr Durán 04/17/19 07:53 04/17/19 10:12 <Katty Monet - Last Filed: 04/17/19 11:49> *DC/Admit/Observation/Transfer <Johanne Queen - Last Filed: 04/17/19 07:43> - Discharge Dispostion Decision to Admit order: Yes <Katty Monet - Last Filed: 04/17/19 11:49> Diagnosis at time of Disposition: Acute respiratory failure with hypoxia and hypercapnia COPD (chronic obstructive pulmonary disease) Qualifiers: COPD type: unspecified COPD Qualified Code(s): J44.9 - Chronic obstructive pulmonary disease, unspecified - Discharge Dispostion Condition at time of disposition: Fair
[2019-04-17] MEDS ORDERED: AZITHROMYCIN IVPB 500 MG/250 ML BAG IVPB ONE (07:54)
[2019-04-17] MEDS ORDERED: MAGNESIUM SULF 50% (8.12 MEQ/2 ML-1 GM VIAL) IVPB ONE (07:55)
[2019-04-17] MEDS ORDERED: CEFTRIAXONE 1 GM/50 ML BAG ONE (07:55)
[2019-04-17 08:54] LABS: ARTERIAL BLD GAS O2 SATURATION 81.8 % (95-98); ARTERIAL BLOOD GAS BASE EXCESS 3.2 meq/l (-2-2); ARTERIAL BLOOD GAS PCO2 42.4 mmHg (35-45); ARTERIAL BLOOD GAS PO2 47.6 mmHg (80-105); ARTERIAL BLOOD GAS pH 7.43 (7.35-7.45); CARBOXYHEMOGLOBIN 1.8 % (0-2)
[2019-04-17] MEDS ORDERED: MAGNESIUM SULF 50% (8.12 MEQ/2 ML-1 GM VIAL) ONE (08:54)
[2019-04-17 08:57] LABS: ALLENS TEST POSITIVE
[2019-04-17 09:26] LABS: ALBUMIN 3.8 g/dl (3.4-5.0); ALK PHOS 196 U/L (45-117); ANION GAP 7 MMOL/L (8-16); BILIRUBIN,TOTAL 0.3 mg/dL (0.2-1); BLOOD UREA NITROGEN 10.6 mg/dL (7-18); CHLORIDE 104 mmol/L (98-107); CO2 31 mmol/L (21-32); CREATININE 0.5 mg/dL (0.55-1.3); GLUCOSE,RANDOM 90 mg/dL (74-106); POTASSIUM 3.5 mmol/L (3.5-5.1); SGOT/AST 10 U/L (15-37); SGPT/ALT 11 U/L (13-61); SODIUM 141 mmol/L (136-145); TOT PROT 7.2 g/dl (6.4-8.2)
[2019-04-17 09:48] LABS: N-TERMINAL BNP 98.8 pg/ml (5-125)
--- NOTE | 2019-04-17 14:18 | EKG ---
Test Reason : Blood Pressure : / mmHG Vent. 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
--- NOTE | 2019-04-17 14:59 | HP ---
Admitting History and Physical - Primary Care Physician PCP: Joshua Durán - Admission Chief Complaint: SOB and cough History of Present Illness: Pt with known COPD, on O2 supplementation at home, developed clear- whitish discharge running nose last week; for the last 2 days he developed cough, white sputum and last night SOB, and came to ER this AM. 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 Hip replacement - Smoking History Smoking history: Unknown if ever smoked Have you smoked in the past 12 months: No Aproximately how many cigarettes per day: 0 If you are a former smoker, when did you quit?: 14 years - Alcohol/Substance Use Hx Alcohol Use: No - Social History History of Recent Travel: No Home Medications - Allergies Allergies/Adverse Reactions: Allergies Allergy/AdvReac Type Severity Reaction Status Date / Time No Known Drug Allergies Allergy Verified 01/01/19 02:47 - Home Medications Home Medications: Ambulatory Orders Phenytoin Na Extended [Dilantin -] 100 mg PO BID 06/11/14 Montelukast Na [Singulair -] 10 mg PO HS #90 tablet 06/15/14 Simvastatin [Zocor -] 20 mg PO HS #90 06/15/14 Magnesium Oxide [Mag-Ox -] 400 mg PO BID tablet 09/06/18 Acetaminophen [Tylenol .Regular Strength -] 650 mg PO Q8H 10/18/18 Guaifenesin Dm [Robitussin Dm -] 10 ml PO Q4H PRN cup 10/25/18 Diltiazem Cd [Cardizem Cd -] 120 mg PO DAILY cap.cd.24h 01/11/19 Pantoprazole Suspension [Protonix Packets For Oral Suspension -] 40 mg PO DAILY #20 packet 01/11/19 Albuterol 0.083% Nebulizer Arlyn [Ventolin 0.083% Nebulizer Soln -] 1 amp NEB RQID PRN 04/17/19 Albuterol 2.5/Ipratropium 0.5 [Duoneb -] 1 amp NEB RQID PRN 04/17/19 Review of Systems Findings/Remarks: Pt is breaathing better since was started on BIPAP - Review of Systems Constitutional: denies: Chills, Fever Eyes: denies: Blurred Vision, Double Vision HENT: denies: Difficult Swallowing, Ear Discharge, Throat Pain Neck: denies: Lumps, Pain on Movement Cardiovascular: denies: Chest Pain, Edema, Palpitations Respiratory: reports: Cough, SOB. denies: Wheezing Gastrointestinal: denies: Abdominal Pain, Diarrhea, Nausea, Vomiting Genitourinary: denies: Burning, Discharge Musculoskeletal: denies: Back Pain, Extremity Pain Integumentary: denies: Blister, Bruising Neurological: denies: Change in LOC, Change in Speech Endocrine: denies: Excessive Sweating, Intolerance to Cold Hematology/Lymphatic: denies: Easily Bruised, Excessive Bleeding Psychiatric: denies: Anxiety, Depression Physical Examination Vital Signs: Vital Signs Temperature 96.8 F L 04/17/19 11:02 Pulse Rate 61 04/17/19 11:02 Respiratory Rate 14 04/17/19 09:25 Blood Pressure 121/64 04/17/19 11:02 O2 Sat by Pulse Oximetry (%) 100 04/17/19 11:02 Findings/Remarks: Pt on BIPAP Constitutional: Yes: No Distress, Calm Eyes: Yes: Conjunctiva Clear, EOM Intact HENT: No: Epistaxis, Rhinnorhea Neck: Yes: Trachea Midline. No: Lymphadenopathy Cardiovascular: Yes: Regular Rate and Rhythm, S1, S2 Respiratory: Yes: Regular, Rhonchi Gastrointestinal: Yes: Normal Bowel Sounds, Soft, Tenderness ...Rectal Exam: Yes: Deferred Renal/: Yes: CVA Tenderness - Right. No: Bladder Distention, CVA Tenderness - Left Musculoskeletal: No: Back Pain, Joint Swelling Edema: No Integumentary: No: Bruising, Rash Neurological: Yes: Alert, Oriented, Other (motor and sensory examination is symmetric in UE/ LE/ face) Psychiatric: Yes: Alert, Oriented Labs: CBC, BMP 04/17/19 07:30 04/17/19 07:30 Imaging - Results Chest X-ray: Report Reviewed Problem List - Problems (1) Acute respiratory failure with hypoxia and hypercapnia Code(s): J96.01 - ACUTE RESPIRATORY FAILURE WITH HYPOXIA; J96.02 - ACUTE RESPIRATORY FAILURE WITH HYPERCAPNIA (2) Acute chronic obstructive pulmonary disease with respiratory failure Code(s): J96.00 - ACUTE RESPIRATORY FAILURE, UNSP W HYPOXIA OR HYPERCAPNIA; J44.9 - CHRONIC OBSTRUCTIVE PULMONARY DISEASE, UNSPECIFIED (3) Acute exacerbation of chronic obstructive pulmonary disease (COPD) Code(s): J44.1 - CHRONIC OBSTRUCTIVE PULMONARY DISEASE W (ACUTE) EXACERBATION (4) CAD (coronary artery disease) Code(s): I25.10 - ATHSCL HEART DISEASE OF [place] CORONARY ARTERY W/O ANG PCTRS (5) Cachexia Code(s): R64 - CACHEXIA (6) HLD (hyperlipidemia) Code(s): E78.5 - HYPERLIPIDEMIA, UNSPECIFIED (7) HTN (hypertension) Code(s): I10 - ESSENTIAL (PRIMARY) HYPERTENSION (8) Pelvic fracture Code(s): S32.9XXA - FRACTURE OF UNSP PARTS OF LUMBOSACRAL SPINE AND PELVIS, INIT (9) Pulmonary hypertension Code(s): I27.2 - OTHER SECONDARY PULMONARY HYPERTENSION * DO NOT USE * (10) Right hip pain Code(s): M25.551 - PAIN IN RIGHT HIP (11) Severe malnutrition Code(s): E41 - NUTRITIONAL MARASMUS (12) Seizure disorder Code(s): G40.909 - EPILEPSY, UNSP, NOT INTRACTABLE, WITHOUT STATUS EPILEPTICUS Assessment/Plan Continue BIPAP IV steroid GI prophylaxis DVT prohylaxis Pulmonary consult Admit to monitor bed AM labs
[2019-04-17] MEDS ORDERED: ACETAMINOPHEN 325 MG TABLET (FP) ONE (16:38)
[2019-04-17] MEDS ORDERED: dilTIAZem HCL 60 MG TABLET (FP) ONE (16:38)
[2019-04-17] MEDS: methylPREDNISolone NA SUCC 40 MG/1 ML VIAL IVPB SCH ×2 (16:45→21:45)
[2019-04-17] MEDS: ACETAMINOPHEN 325 MG TABLET (FP) PO SCH ×2 (16:45→23:08)
[2019-04-17] MEDS: PANTOPRAZOLE SOD 40 MG SUSPENSION PACKET PO SCH (17:15)
[2019-04-17] MEDS: MONTELUKAST NA 10 MG TABLET PO SCH (21:45)
[2019-04-17] MEDS: ATORVASTATIN CA 10 MG TABLET (FP) PO SCH (21:45)
[2019-04-17] MEDS: MAGNESIUM OXIDE 400 MG TABLET (FP) PO SCH (21:45)
[2019-04-17] MEDS: PHENYTOIN NA EXTENDED 100 MG CAPSULE (FP) PO SCH (21:45)
[2019-04-18] MEDS: guaiFENesin/D-METHORPHAN HB 10 ML UNIT-DOSE CUPS PO PRN (01:17)
[2019-04-18] MEDS: methylPREDNISolone NA SUCC 40 MG/1 ML VIAL IVPB SCH ×4 (03:35→21:04)
[2019-04-18 06:28] LABS: ALBUMIN 3.6 g/dl (3.4-5.0); BILIRUBIN,TOTAL 0.3 mg/dL (0.2-1); CALCIUM 8.9 mg/dL (8.5-10.1); CREATININE 0.5 mg/dL (0.55-1.3); POTASSIUM 4.7 mmol/L (3.5-5.1)
[2019-04-18 06:40] LABS: HEMATOCRIT 36.1 % (35.4-49); HEMOGLOBIN 11.5 GM/dL (11.7-16.9); MCH 23.8 pg (25.7-33.7); MCHC 31.8 g/dl (32.0-35.9); MEAN CELL VOLUME 74.9 fl (80-96); MEAN PLT VOLUME 9.8 fl (7.5-11.1); PLATELET COUNT 202 K/MM3 (134-434); RBC 4.82 M/mm3 (4.00-5.60); RDW 17.9 % (11.9-15.9); WHITE BLOOD COUNT 4.5 K/mm3 (4.0-10.0)
[2019-04-18] MEDS: PHENYTOIN NA EXTENDED 100 MG CAPSULE (FP) PO SCH ×2 (08:59→21:03)
[2019-04-18] MEDS: MAGNESIUM OXIDE 400 MG TABLET (FP) PO SCH ×2 (09:00→21:03)
[2019-04-18] MEDS: ACETAMINOPHEN 325 MG TABLET (FP) PO SCH ×3 (09:00→23:17)
[2019-04-18] MEDS: PANTOPRAZOLE SOD 40 MG SUSPENSION PACKET PO SCH (09:01)
--- NOTE | 2019-04-18 09:33 | PN ---
Progress Note, Physician History of Present Illness: Pt states that is breathing better, still coughs and brings up white sputum, not using BIPAP this AM. Pt w/o CP, palpitations, abd pain. - Current Medication List Current Medications: Active Medications Acetaminophen (Tylenol -) 650 mg PO Q8H [facility] Last Admin: 04/18/19 09:00 Dose: 650 mg Albuterol Sulfate (Ventolin 0.083% Nebulizer Soln -) 1 amp NEB RQID PRN PRN Reason: SHORT OF BREATH/WHEEZING Albuterol/Ipratropium (Duoneb -) 1 amp NEB RQID PRN PRN Reason: SHORT OF BREATH/WHEEZING Atorvastatin Calcium (Lipitor -) 10 mg PO HS [facility] Last Admin: 04/17/19 21:45 Dose: 10 mg Diltiazem HCl (Cardizem Cd -) 120 mg PO DAILY [facility] Last Admin: 04/18/19 09:00 Dose: 120 mg Guaifenesin (Robitussin Dm -) 10 ml PO Q4H PRN PRN Reason: COUGH Last Admin: 04/18/19 01:17 Dose: 10 ml Magnesium Oxide (Mag-Ox -) 400 mg PO BID [facility] Last Admin: 04/18/19 09:00 Dose: 400 mg Methylprednisolone Sodium Succinate (Solu-Medrol -) 40 mg IVPB Q6H-IV [facility] Last Admin: 04/18/19 09:01 Dose: 40 mg Montelukast Sodium (Singulair -) 10 mg PO HS [facility] Last Admin: 04/17/19 21:45 Dose: 10 mg Pantoprazole Sodium (Protonix Packets For Oral Suspension -) 40 mg PO DAILY [facility] Last Admin: 04/18/19 09:01 Dose: 40 mg Phenytoin Sodium (Dilantin -) 100 mg PO BID [facility] Last Admin: 04/18/19 08:59 Dose: 100 mg - Objective Vital Signs: Vital Signs Temperature 97.5 F L 04/17/19 21:00 Pulse Rate 64 04/18/19 06:00 Respiratory Rate 18 04/18/19 06:00 Blood Pressure 114/60 04/18/19 06:00 O2 Sat by Pulse Oximetry (%) 95 04/18/19 04:13 Constitutional: Yes: No Distress, Calm Cardiovascular: Yes: Regular Rate and Rhythm, S1, S2 Respiratory: Yes: Regular, Rhonchi Gastrointestinal: Yes: Normal Bowel Sounds, Soft. No: Tenderness Edema: No Neurological: Yes: Alert, Oriented Labs: CBC, BMP 04/18/19 05:20 04/18/19 05:20 Problem List - Problems (1) Acute respiratory failure with hypoxia and hypercapnia Code(s): J96.01 - ACUTE RESPIRATORY FAILURE WITH HYPOXIA; J96.02 - ACUTE RESPIRATORY FAILURE WITH HYPERCAPNIA (2) Acute chronic obstructive pulmonary disease with respiratory failure Code(s): J96.00 - ACUTE RESPIRATORY FAILURE, UNSP W HYPOXIA OR HYPERCAPNIA; J44.9 - CHRONIC OBSTRUCTIVE PULMONARY DISEASE, UNSPECIFIED (3) Acute exacerbation of chronic obstructive pulmonary disease (COPD) Code(s): J44.1 - CHRONIC OBSTRUCTIVE PULMONARY DISEASE W (ACUTE) EXACERBATION (4) CAD (coronary artery disease) Code(s): I25.10 - ATHSCL HEART DISEASE OF [place] CORONARY ARTERY W/O ANG PCTRS (5) Cachexia Code(s): R64 - CACHEXIA (6) HLD (hyperlipidemia) Code(s): E78.5 - HYPERLIPIDEMIA, UNSPECIFIED (7) HTN (hypertension) Code(s): I10 - ESSENTIAL (PRIMARY) HYPERTENSION (8) Pelvic fracture Code(s): S32.9XXA - FRACTURE OF UNSP PARTS OF LUMBOSACRAL SPINE AND PELVIS, INIT (9) Pulmonary hypertension Code(s): I27.2 - OTHER SECONDARY PULMONARY HYPERTENSION * DO NOT USE * (10) Right hip pain Code(s): M25.551 - PAIN IN RIGHT HIP (11) Severe malnutrition Code(s): E41 - NUTRITIONAL [place]ASMUS (12) Seizure disorder Code(s): G40.909 - EPILEPSY, UNSP, NOT INTRACTABLE, WITHOUT STATUS EPILEPTICUS Assessment/Plan Continue BIPAP pRN IV steroid GI prophylaxis DVT prohylaxis Pulmonary consult Admitted to monitor bed AM labs
--- NOTE | 2019-04-18 11:32 | PN ---
Progress Note (short form) - Note Progress Note: PULMONARY CONSULTATION DICTATED 04/18/19
--- NOTE | 2019-04-18 12:44 | PN ---
Progress Note (short form) - Note Progress Note: PULMONARY CONSULTATION DICTATED 04/18/19 IMP ACUTE ON CHRONIC HYPOXEMIC/HYPERCAPNEIC RESPIRATORY FAILURE COPD EXACERBATION LIKELY URI HTN ASHD S/P STENTS H/O DVT/PE CACHEXIA PLAN INHALED BRONCHODILATORS O2 TO MAINTAIN O2 SAT 90% OR GREATER MEDROL ABX BIPAP NEEDED DR LOPEZ Problem List - Problems (1) Acute on chronic respiratory failure with hypercapnia Code(s): J96.22 - ACUTE AND CHRONIC RESPIRATORY FAILURE WITH HYPERCAPNIA (2) COPD (chronic obstructive pulmonary disease) Code(s): J44.9 - CHRONIC OBSTRUCTIVE PULMONARY DISEASE, UNSPECIFIED Qualifiers: COPD type: unspecified COPD Qualified Code(s): J44.9 - Chronic obstructive pulmonary disease, unspecified (3) Acute exacerbation of chronic obstructive pulmonary disease (COPD) Code(s): J44.1 - CHRONIC OBSTRUCTIVE PULMONARY DISEASE W (ACUTE) EXACERBATION (4) Anemia Code(s): D64.9 - ANEMIA, UNSPECIFIED (5) CAD (coronary artery disease) Code(s): I25.10 - ATHSCL HEART DISEASE OF [place] CORONARY ARTERY W/O ANG PCTRS (6) Cachexia Code(s): R64 - CACHEXIA (7) Cough Code(s): R05 - COUGH (8) HLD (hyperlipidemia) Code(s): E78.5 - HYPERLIPIDEMIA, UNSPECIFIED (9) HTN (hypertension) Code(s): I10 - ESSENTIAL (PRIMARY) HYPERTENSION (10) Severe malnutrition Code(s): E43 - UNSPECIFIED SEVERE PROTEIN-CALORIE MALNUTRITION (11) Status post right shoulder hemiarthroplasty Code(s): Z96.611 - PRESENCE OF RIGHT ARTIFICIAL SHOULDER JOINT (12) URI (upper respiratory infection) Code(s): J06.9 - ACUTE UPPER RESPIRATORY INFECTION, UNSPECIFIED
--- NOTE | 2019-04-18 16:26 | CONS ---
DATE OF CONSULTATION: 04/18/2019 PULMONARY CONSULTATION REFERRING PHYSICIAN: Joshua Durán M.D. HISTORY OF PRESENT ILLNESS: The patient is a 73-year-old black male known to me from previous hospitalization with past office visits with past medical history of advanced COPD on home O2, chronic hypoxemia, history of ASHD status post stent, hypertension, hyperlipidemia, pneumonia, GERD, history of right shoulder replacement, DVT, pulmonary emboli, history of hip replacement, admitted to [facility] with complaints of increasing shortness of breath and chest congestion. Patient states for the past week or so he started noticing whitish discharge running from his nose. For the past could days he developed a cough productive of white sputum. Denied any fever or chills. Denies increasing shortness of breath and presented to the emergency room. In the ER, he was noted to be hypoxic on room air. He was also noted to be hypercapnic on VBG. He was started on inhaled bronchodilators, steroids with good response and transferred up to medical floor for further management. Patient denies any hemoptysis, denies any chest pain or palpitations. She has a history of smoking and apparently has not smoked in awhile. There is no history of occupational exposures to chemicals or fumes. There is no history of recent travel. On admission, in the ER, the patient was also placed on BiPAP with good clinical response. PAST MEDICAL HISTORY: Again includes advanced COPD O2 dependent, ASHD status post stents, hypertension, hyperlipidemia, GERD, history of right shoulder replacement, DVT, pulmonary emboli, and a hip replacement. CURRENT MEDICATIONS: Include Solu-Medrol 40 q.6, Tylenol, Mag-Ox, Robitussin, albuterol, DuoNeb, Cardizem, Lipitor, Singulair, and pantoprazole. REVIEW OF SYSTEMS: Positive cough, positive chest congestion, no fever, no chills, no hemoptysis, no abdominal pain. Positive shortness of breath. PHYSICAL EXAMINATION: GENERAL: The patient is a cachectic male, awake, alert, mildly dyspneic but in no acute distress. He is afebrile. VITAL SIGNS: Blood pressure 134/66, respiratory rate 18, O2 saturation is 98% on 3 L. HEENT: Normocephalic, atraumatic. NECK: Supple. HEART: Regular S1, S2. CHEST: Scattered bilateral rhonchi. . ABDOMEN: Soft, bowel sounds positive. EXTREMITIES: No cyanosis, edema. LABORATORY: VB.30, pCO2 of 65, and pO2 of 22 with bicarbonate of 31. Repeat on blood gas, 7.43, pCO2 of 42, and pO2 of 46, and bicarbonate of 27, saturation is 81. Chest x-ray: No acute infiltrates or effusions. WBC 4.5, hemoglobin 11.5, hematocrit 36.1, platelets of 202,000. BUN is 13, creatinine 0.5. IMPRESSION: 1. Acute on chronic hypercapnic, hypoxemic respiratory failure. 2. Secondary to advanced chronic obstructive pulmonary disease with acute exacerbation. 3. Hypertension. 4. Arteriosclerotic heart disease status post stents. 5. History of deep venous thrombosis, pulmonary embolism. 6. Likely upper respiratory infection. PLAN: Inhaled bronchodilators, supplemental O2 to maintain saturation 90% or greater, continue Solu-Medrol, antibiotics, BiPAP as needed. ITZEL LOPEZ M.D. CHUCK/[id number]
[2019-04-18] MEDS: ALBUTEROL SO4 2.5/IPRATROPIUM 0.5 INH SOL 3 ML VIAL.NEB. NEB PRN (20:00)
[2019-04-18] MEDS: ATORVASTATIN CA 10 MG TABLET (FP) PO SCH (21:03)
[2019-04-18] MEDS: MONTELUKAST NA 10 MG TABLET PO SCH (21:04)
[2019-04-18] MEDS: HEPARIN NA (PORCINE) 5,000 UNITS/ML 1ML VIAL SQ SCH (23:19)
[2019-04-19] MEDS: methylPREDNISolone NA SUCC 40 MG/1 ML VIAL IVPB SCH ×4 (02:09→21:34)
[2019-04-19] MEDS: PANTOPRAZOLE SOD 40 MG SUSPENSION PACKET PO SCH (09:40)
[2019-04-19] MEDS: ACETAMINOPHEN 325 MG TABLET (FP) PO SCH ×2 (09:40→16:30)
[2019-04-19] MEDS: MAGNESIUM OXIDE 400 MG TABLET (FP) PO SCH ×2 (09:40→21:34)
[2019-04-19] MEDS: PHENYTOIN NA EXTENDED 100 MG CAPSULE (FP) PO SCH ×2 (09:40→21:34)
[2019-04-19] MEDS: HEPARIN NA (PORCINE) 5,000 UNITS/ML 1ML VIAL SQ SCH ×2 (09:41→21:36)
[2019-04-19] MEDS: guaiFENesin/D-METHORPHAN HB 10 ML UNIT-DOSE CUPS PO PRN ×2 (09:50→14:13)
[2019-04-19 12:07] LABS: BLOOD UREA NITROGEN 20.2 mg/dL (7-18); CALCIUM 8.8 mg/dL (8.5-10.1); CREATININE 0.6 mg/dL (0.55-1.3); POTASSIUM 4.1 mmol/L (3.5-5.1)
--- NOTE | 2019-04-19 12:10 | PN ---
Progress Note, Physician History of Present Illness: pulmonary alert,feeling better,less dyspneic,+ cough - Current Medication List Current Medications: Active Medications Acetaminophen (Tylenol -) 650 mg PO Q8H [facility] Last Admin: 04/19/19 09:40 Dose: 650 mg Albuterol Sulfate (Ventolin 0.083% Nebulizer Soln -) 1 amp NEB RQID PRN PRN Reason: SHORT OF BREATH/WHEEZING Albuterol/Ipratropium (Duoneb -) 1 amp NEB RQID PRN PRN Reason: SHORT OF BREATH/WHEEZING Last Admin: 04/18/19 20:00 Dose: 1 amp Atorvastatin Calcium (Lipitor -) 10 mg PO [facility] Last Admin: 04/18/19 21:03 Dose: 10 mg Diltiazem HCl (Cardizem Cd -) 120 mg PO DAILY [facility] Last Admin: 04/19/19 09:40 Dose: 120 mg Guaifenesin (Robitussin Dm -) 10 ml PO Q4H PRN PRN Reason: COUGH Last Admin: 04/19/19 09:50 Dose: 10 ml Heparin Sodium (Porcine) (Heparin -) 5,000 unit SQ BID [facility] Last Admin: 04/19/19 09:41 Dose: 5,000 unit Magnesium Oxide (Mag-Ox -) 400 mg PO BID [facility] Last Admin: 04/19/19 09:40 Dose: 400 mg Methylprednisolone Sodium Succinate (Solu-Medrol -) 40 mg IVPB Q6H-IV [facility] Last Admin: 04/19/19 09:41 Dose: 40 mg Montelukast Sodium (Singulair -) 10 mg PO [facility] Last Admin: 04/18/19 21:04 Dose: 10 mg Pantoprazole Sodium (Protonix Packets For Oral Suspension -) 40 mg PO DAILY [facility] Last Admin: 04/19/19 09:40 Dose: 40 mg Phenytoin Sodium (Dilantin -) 100 mg PO BID [facility] Last Admin: 04/19/19 09:40 Dose: 100 mg - Objective Vital Signs: Vital Signs Temperature 97.9 F 04/19/19 09:39 Pulse Rate 69 04/19/19 09:39 Respiratory Rate 18 04/19/19 09:39 Blood Pressure 111/61 04/19/19 09:39 O2 Sat by Pulse Oximetry (%) 98 04/18/19 19:34 Constitutional: Yes: Calm, Cachectic Eyes: Yes: WNL HENT: Yes: WNL Neck: Yes: WNL Cardiovascular: Yes: Regular Rate and Rhythm, S1, S2 Respiratory: Yes: Diminished, Rhonchi (few scattered rhonchi) Gastrointestinal: Yes: Normal Bowel Sounds, Soft Extremities: Yes: WNL Edema: No Problem List - Problems (1) Acute on chronic respiratory failure with hypercapnia Code(s): J96.22 - ACUTE AND CHRONIC RESPIRATORY FAILURE WITH HYPERCAPNIA (2) COPD (chronic obstructive pulmonary disease) Code(s): J44.9 - CHRONIC OBSTRUCTIVE PULMONARY DISEASE, UNSPECIFIED Qualifiers: COPD type: unspecified COPD Qualified Code(s): J44.9 - Chronic obstructive pulmonary disease, unspecified (3) Acute exacerbation of chronic obstructive pulmonary disease (COPD) Code(s): J44.1 - CHRONIC OBSTRUCTIVE PULMONARY DISEASE W (ACUTE) EXACERBATION (4) Anemia Code(s): D64.9 - ANEMIA, UNSPECIFIED (5) CAD (coronary artery disease) Code(s): I25.10 - ATHSCL HEART DISEASE OF [place] CORONARY ARTERY W/O ANG PCTRS (6) Cachexia Code(s): R64 - [place] (7) Cough Code(s): R05 - COUGH (8) HLD (hyperlipidemia) Code(s): E78.5 - HYPERLIPIDEMIA, UNSPECIFIED (9) HTN (hypertension) Code(s): I10 - ESSENTIAL (PRIMARY) HYPERTENSION (10) Severe malnutrition Code(s): E43 - UNSPECIFIED SEVERE PROTEIN-CALORIE MALNUTRITION (11) Status post right shoulder hemiarthroplasty Code(s): Z96.611 - PRESENCE OF RIGHT ARTIFICIAL SHOULDER JOINT (12) URI (upper respiratory infection) Code(s): J06.9 - ACUTE UPPER RESPIRATORY INFECTION, UNSPECIFIED Assessment/Plan IMP ACUTE ON CHRONIC HYPOXEMIC/HYPERCAPNEIC RESPIRATORY FAILURE COPD EXACERBATION LIKELY URI HTN ASHD S/P STENTS H/O DVT/PE [place] PLAN INHALED BRONCHODILATORS O2 TO MAINTAIN O2 SAT 90% OR GREATER CONTINUE MEDROL ABX BIPAP NEEDED DR LOPEZ Problem List - Problems (1) Acute on chronic respiratory failure with hypercapnia Code(s): J96.22 - ACUTE AND CHRONIC RESPIRATORY FAILURE WITH HYPERCAPNIA (2) COPD (chronic obstructive pulmonary disease) Code(s): J44.9 - CHRONIC OBSTRUCTIVE PULMONARY DISEASE, UNSPECIFIED Qualifiers: COPD type: unspecified COPD Qualified Code(s): J44.9 - Chronic obstructive pulmonary disease, unspecified (3) Acute exacerbation of chronic obstructive pulmonary disease (COPD) Code(s): J44.1 - CHRONIC OBSTRUCTIVE PULMONARY DISEASE W (ACUTE) EXACERBATION (4) Anemia Code(s): D64.9 - ANEMIA, UNSPECIFIED (5) CAD (coronary artery disease) Code(s): I25.10 - ATHSCL HEART DISEASE OF [place] CORONARY ARTERY W/O ANG PCTRS (6) Cachexia Code(s): R64 - [place] (7) Cough Code(s): R05 - COUGH (8) HLD (hyperlipidemia) Code(s): E78.5 - HYPERLIPIDEMIA, UNSPECIFIED (9) HTN (hypertension) Code(s): I10 - ESSENTIAL (PRIMARY) HYPERTENSION (10) Severe malnutrition Code(s): E43 - UNSPECIFIED SEVERE PROTEIN-CALORIE MALNUTRITION (11) Status post right shoulder hemiarthroplasty Code(s): Z96.611 - PRESENCE OF RIGHT ARTIFICIAL SHOULDER JOINT (12) URI (upper respiratory infection) Code(s): J06.9 - ACUTE UPPER RESPIRATORY INFECTION, UNSPECIFIED
[2019-04-19] MEDS: ALBUTEROL SO4 0.083% IH SOL 2.5 MG/3 ML VIAL.NEB. NEB PRN (13:53)
[2019-04-19 14:01] LABS: HEMATOCRIT 36.1 % (35.4-49); HEMOGLOBIN 11.4 GM/dL (11.7-16.9); MCHC 31.6 g/dl (32.0-35.9); PLATELET COUNT 199 K/MM3 (134-434); RBC 4.75 M/mm3 (4.00-5.60); RDW 17.7 % (11.9-15.9); WHITE BLOOD COUNT 10.9 K/mm3 (4.0-10.0)
[2019-04-19] MEDS: AZITHROMYCIN 250 MG TABLET PO SCH (14:12)
[2019-04-19] MEDS ORDERED: ACETAMINOPHEN 325 MG TABLET (FP) PO PRN ×2 (17:56)
[2019-04-19] MEDS: ALBUTEROL SO4 2.5/IPRATROPIUM 0.5 INH SOL 3 ML VIAL.NEB. NEB PRN (20:49)
[2019-04-19] MEDS: ATORVASTATIN CA 10 MG TABLET (FP) PO SCH (21:34)
[2019-04-19] MEDS: MONTELUKAST NA 10 MG TABLET PO SCH (21:35)
[2019-04-19] MEDS: DOCUSATE SODIUM 100 MG CAPSULE (FP) PO PRN (21:36)
--- NOTE | 2019-04-19 23:35 | PN ---
Progress Note, Physician History of Present Illness: Pt states that is breathing better, still coughs and brings up white sputum. Pt w/o CP, palpitations, abd pain. - Current Medication List Current Medications: Active Medications Acetaminophen (Tylenol -) 650 mg PO Q8H PRN PRN Reason: PAIN 1-6 Albuterol Sulfate (Ventolin 0.083% Nebulizer Soln -) 1 amp NEB RQID PRN PRN Reason: SHORT OF BREATH/WHEEZING Last Admin: 04/19/19 13:53 Dose: 1 amp Albuterol/Ipratropium (Duoneb -) 1 amp NEB RQID PRN PRN Reason: SHORT OF BREATH/WHEEZING Last Admin: 04/19/19 20:49 Dose: 1 amp Atorvastatin Calcium (Lipitor -) 10 mg PO HS [facility] Last Admin: 04/19/19 21:34 Dose: 10 mg Azithromycin (Zithromax -) 500 mg PO DAILY [facility] Last Admin: 04/19/19 14:12 Dose: 500 mg Diltiazem HCl (Cardizem Cd -) 120 mg PO DAILY [facility] Last Admin: 04/19/19 09:40 Dose: 120 mg Docusate Sodium (Colace -) 100 mg PO BID PRN PRN Reason: CONSTIPATION Last Admin: 04/19/19 21:36 Dose: 100 mg Guaifenesin (Robitussin Dm -) 10 ml PO Q4H PRN PRN Reason: COUGH Last Admin: 04/19/19 14:13 Dose: 10 ml Heparin Sodium (Porcine) (Heparin -) 5,000 unit SQ BID [facility] Last Admin: 04/19/19 21:36 Dose: 5,000 unit Magnesium Oxide (Mag-Ox -) 400 mg PO BID [facility] Last Admin: 04/19/19 21:34 Dose: 400 mg Methylprednisolone Sodium Succinate (Solu-Medrol -) 40 mg IVPB Q6H-IV [facility] Last Admin: 04/19/19 21:34 Dose: 40 mg Montelukast Sodium (Singulair -) 10 mg PO HS [facility] Last Admin: 04/19/19 21:35 Dose: 10 mg Pantoprazole Sodium (Protonix Packets For Oral Suspension -) 40 mg PO DAILY [facility] Last Admin: 04/19/19 09:40 Dose: 40 mg Phenytoin Sodium (Dilantin -) 100 mg PO BID [facility] Last Admin: 04/19/19 21:34 Dose: 100 mg - Objective Vital Signs: Vital Signs Temperature 98.2 F 04/19/19 21:00 Pulse Rate 69 04/19/19 21:00 Respiratory Rate 18 04/19/19 21:00 Blood Pressure 133/62 04/19/19 21:00 O2 Sat by Pulse Oximetry (%) 97 04/19/19 21:00 Constitutional: Yes: No Distress, Calm Cardiovascular: Yes: Regular Rate and Rhythm, S1, S2 Respiratory: Yes: Regular, Rales Gastrointestinal: Yes: Normal Bowel Sounds, Soft. No: Tenderness Edema: No Neurological: Yes: Alert, Oriented Labs: CBC, BMP 04/19/19 11:15 04/19/19 11:15 Problem List - Problems (1) Acute respiratory failure with hypoxia and hypercapnia Code(s): J96.01 - ACUTE RESPIRATORY FAILURE WITH HYPOXIA; J96.02 - ACUTE RESPIRATORY FAILURE WITH HYPERCAPNIA (2) Acute chronic obstructive pulmonary disease with respiratory failure Code(s): J96.00 - ACUTE RESPIRATORY FAILURE, UNSP W HYPOXIA OR HYPERCAPNIA; J44.9 - CHRONIC OBSTRUCTIVE PULMONARY DISEASE, UNSPECIFIED (3) Acute exacerbation of chronic obstructive pulmonary disease (COPD) Code(s): J44.1 - CHRONIC OBSTRUCTIVE PULMONARY DISEASE W (ACUTE) EXACERBATION (4) CAD (coronary artery disease) Code(s): I25.10 - ATHSCL HEART DISEASE OF [place] CORONARY ARTERY W/O ANG PCTRS (5) Cachexia Code(s): R64 - [place] (6) HLD (hyperlipidemia) Code(s): E78.5 - HYPERLIPIDEMIA, UNSPECIFIED (7) HTN (hypertension) Code(s): I10 - ESSENTIAL (PRIMARY) HYPERTENSION (8) Pelvic fracture Code(s): S32.9XXA - FRACTURE OF UNSP PARTS OF LUMBOSACRAL SPINE AND PELVIS, INIT (9) Pulmonary hypertension Code(s): I27.2 - OTHER SECONDARY PULMONARY HYPERTENSION * DO NOT USE * (10) Right hip pain Code(s): M25.551 - PAIN IN RIGHT HIP (11) Severe malnutrition Code(s): E41 - NUTRITIONAL [place] (12) Seizure disorder Code(s): G40.909 - EPILEPSY, UNSP, NOT INTRACTABLE, WITHOUT STATUS EPILEPTICUS Assessment/Plan Continue BIPAP PRN IV steroid -to f/u with Pulmonary GI prophylaxis DVT prohylaxis Pulmonary consult is appreciated Admitted to monitor bed AM labs PT eval
[2019-04-20] MEDS: methylPREDNISolone NA SUCC 40 MG/1 ML VIAL IVPB SCH ×2 (02:55→10:35)
[2019-04-20 08:05] LABS: BLOOD UREA NITROGEN 18.8 mg/dL (7-18); CALCIUM 8.5 mg/dL (8.5-10.1); CREATININE 0.5 mg/dL (0.55-1.3); POTASSIUM 3.9 mmol/L (3.5-5.1)
[2019-04-20 08:46] LABS: HEMATOCRIT 34.4 % (35.4-49); MCHC 31.9 g/dl (32.0-35.9); PLATELET COUNT 207 K/MM3 (134-434); RBC 4.58 M/mm3 (4.00-5.60); RDW 17.5 % (11.9-15.9); WHITE BLOOD COUNT 9.9 K/mm3 (4.0-10.0)
--- NOTE | 2019-04-20 09:50 | PN ---
Progress Note, Physician History of Present Illness: Pt still coughs and brings up white sputum, less that admission. Pt w/o CP, palpitations, abd pain. - Current Medication List Current Medications: Active Medications Acetaminophen (Tylenol -) 650 mg PO Q8H PRN PRN Reason: PAIN 1-6 Albuterol Sulfate (Ventolin 0.083% Nebulizer Soln -) 1 amp NEB RQID PRN PRN Reason: SHORT OF BREATH/WHEEZING Last Admin: 04/19/19 13:53 Dose: 1 amp Albuterol/Ipratropium (Duoneb -) 1 amp NEB RQID PRN PRN Reason: SHORT OF BREATH/WHEEZING Last Admin: 04/19/19 20:49 Dose: 1 amp Atorvastatin Calcium (Lipitor -) 10 mg PO HS [facility] Last Admin: 04/19/19 21:34 Dose: 10 mg Azithromycin (Zithromax -) 500 mg PO DAILY [facility] Last Admin: 04/19/19 14:12 Dose: 500 mg Diltiazem HCl (Cardizem Cd -) 120 mg PO DAILY [facility] Last Admin: 04/19/19 09:40 Dose: 120 mg Docusate Sodium (Colace -) 100 mg PO BID PRN PRN Reason: CONSTIPATION Last Admin: 04/19/19 21:36 Dose: 100 mg Guaifenesin (Robitussin Dm -) 10 ml PO Q4H PRN PRN Reason: COUGH Last Admin: 04/19/19 14:13 Dose: 10 ml Heparin Sodium (Porcine) (Heparin -) 5,000 unit SQ BID [facility] Last Admin: 04/19/19 21:36 Dose: 5,000 unit Magnesium Oxide (Mag-Ox -) 400 mg PO BID [facility] Last Admin: 04/19/19 21:34 Dose: 400 mg Methylprednisolone Sodium Succinate (Solu-Medrol -) 40 mg IVPB Q6H-IV [facility] Last Admin: 04/20/19 02:55 Dose: 40 mg Montelukast Sodium (Singulair -) 10 mg PO HS [facility] Last Admin: 04/19/19 21:35 Dose: 10 mg Pantoprazole Sodium (Protonix Packets For Oral Suspension -) 40 mg PO DAILY [facility] Last Admin: 04/19/19 09:40 Dose: 40 mg Phenytoin Sodium (Dilantin -) 100 mg PO BID [facility] Last Admin: 04/19/19 21:34 Dose: 100 mg - Objective Vital Signs: Vital Signs Temperature 97.9 F 04/20/19 06:00 Pulse Rate 62 04/20/19 06:00 Respiratory Rate 18 04/20/19 06:00 Blood Pressure 117/57 L 04/20/19 06:00 O2 Sat by Pulse Oximetry (%) 94 L 04/20/19 09:26 Constitutional: Yes: No Distress, Calm Cardiovascular: Yes: Regular Rate and Rhythm, S1, S2 Respiratory: Yes: Regular, Rhonchi. No: Wheezes Gastrointestinal: Yes: Normal Bowel Sounds, Soft. No: Tenderness Edema: No Neurological: Yes: Alert, Oriented Labs: CBC, BMP 04/20/19 07:15 04/20/19 07:15 Problem List - Problems (1) Acute respiratory failure with hypoxia and hypercapnia Code(s): J96.01 - ACUTE RESPIRATORY FAILURE WITH HYPOXIA; J96.02 - ACUTE RESPIRATORY FAILURE WITH HYPERCAPNIA (2) Acute chronic obstructive pulmonary disease with respiratory failure Code(s): J96.00 - ACUTE RESPIRATORY FAILURE, UNSP W HYPOXIA OR HYPERCAPNIA; J44.9 - CHRONIC OBSTRUCTIVE PULMONARY DISEASE, UNSPECIFIED (3) Acute exacerbation of chronic obstructive pulmonary disease (COPD) Code(s): J44.1 - CHRONIC OBSTRUCTIVE PULMONARY DISEASE W (ACUTE) EXACERBATION (4) CAD (coronary artery disease) Code(s): I25.10 - ATHSCL HEART DISEASE OF [place] CORONARY ARTERY W/O ANG PCTRS (5) Cachexia Code(s): R64 - [place] (6) HLD (hyperlipidemia) Code(s): E78.5 - HYPERLIPIDEMIA, UNSPECIFIED (7) HTN (hypertension) Code(s): I10 - ESSENTIAL (PRIMARY) HYPERTENSION (8) Pelvic fracture Code(s): S32.9XXA - FRACTURE OF UNSP PARTS OF LUMBOSACRAL SPINE AND PELVIS, INIT (9) Pulmonary hypertension Code(s): I27.2 - OTHER SECONDARY PULMONARY HYPERTENSION * DO NOT USE * (10) Right hip pain Code(s): M25.551 - PAIN IN RIGHT HIP (11) Severe malnutrition Code(s): E41 - NUTRITIONAL [place] (12) Seizure disorder Code(s): G40.909 - EPILEPSY, UNSP, NOT INTRACTABLE, WITHOUT STATUS EPILEPTICUS Assessment/Plan Continue BIPAP PRN IV steroid -to f/u with Pulmonary GI prophylaxis DVT prohylaxis Pulmonary consult is appreciated Admitted to monitor bed AM labs PT eval [facility]
[2019-04-20] MEDS: MAGNESIUM OXIDE 400 MG TABLET (FP) PO SCH ×2 (10:35→21:30)
[2019-04-20] MEDS: PHENYTOIN NA EXTENDED 100 MG CAPSULE (FP) PO SCH ×2 (10:35→21:30)
[2019-04-20] MEDS: HEPARIN NA (PORCINE) 5,000 UNITS/ML 1ML VIAL SQ SCH ×2 (10:35→21:30)
[2019-04-20] MEDS: AZITHROMYCIN 250 MG TABLET PO SCH (10:35)
[2019-04-20] MEDS: PANTOPRAZOLE 40 MG TABLET (FP) PO SCH (10:35)
[2019-04-20] MEDS: ALBUTEROL SO4 0.083% IH SOL 2.5 MG/3 ML VIAL.NEB. NEB PRN (12:02)
--- NOTE | 2019-04-20 13:15 | PN ---
Progress Note, Physician History of Present Illness: pulmonary alert,feeling better,sob improving,less cough - Current Medication List Current Medications: Active Medications Acetaminophen (Tylenol -) 650 mg PO Q8H PRN PRN Reason: PAIN 1-6 Albuterol Sulfate (Ventolin 0.083% Nebulizer Soln -) 1 amp NEB RQID PRN PRN Reason: SHORT OF BREATH/WHEEZING Last Admin: 04/20/19 12:02 Dose: 1 amp Albuterol/Ipratropium (Duoneb -) 1 amp NEB RQID PRN PRN Reason: SHORT OF BREATH/WHEEZING Last Admin: 04/19/19 20:49 Dose: 1 amp Atorvastatin Calcium (Lipitor -) 10 mg PO HS [facility] Last Admin: 04/19/19 21:34 Dose: 10 mg Azithromycin (Zithromax -) 500 mg PO DAILY [facility] Last Admin: 04/20/19 10:35 Dose: 500 mg Diltiazem HCl (Cardizem Cd -) 120 mg PO DAILY [facility] Last Admin: 04/20/19 10:35 Dose: 120 mg Docusate Sodium (Colace -) 100 mg PO BID PRN PRN Reason: CONSTIPATION Last Admin: 04/19/19 21:36 Dose: 100 mg Guaifenesin (Robitussin Dm -) 10 ml PO Q4H PRN PRN Reason: COUGH Last Admin: 04/19/19 14:13 Dose: 10 ml Heparin Sodium (Porcine) (Heparin -) 5,000 unit SQ BID [facility] Last Admin: 04/20/19 10:35 Dose: 5,000 unit Magnesium Oxide (Mag-Ox -) 400 mg PO BID [facility] Last Admin: 04/20/19 10:35 Dose: 400 mg Methylprednisolone Sodium Succinate (Solu-Medrol -) 40 mg IVPB Q6H-IV [facility] Last Admin: 04/20/19 10:35 Dose: 40 mg Montelukast Sodium (Singulair -) 10 mg PO HS [facility] Last Admin: 04/19/19 21:35 Dose: 10 mg Pantoprazole Sodium (Protonix -) 40 mg PO DAILY [facility] Last Admin: 04/20/19 10:35 Dose: 40 mg Phenytoin Sodium (Dilantin -) 100 mg PO BID [facility] Last Admin: 04/20/19 10:35 Dose: 100 mg - Objective Vital Signs: Vital Signs Temperature 97.9 F 04/20/19 06:00 Pulse Rate 62 04/20/19 06:00 Respiratory Rate 18 04/20/19 06:00 Blood Pressure 117/57 L 04/20/19 06:00 O2 Sat by Pulse Oximetry (%) 94 L 04/20/19 09:26 Constitutional: Yes: Calm, Cachectic Eyes: Yes: WNL HENT: Yes: WNL Neck: Yes: WNL Cardiovascular: Yes: Regular Rate and Rhythm, S1, S2 Respiratory: Yes: Diminished Gastrointestinal: Yes: Normal Bowel Sounds, Soft Extremities: Yes: WNL Edema: No Labs: CBC, BMP 04/20/19 07:15 04/20/19 07:15 Problem List - Problems (1) Acute on chronic respiratory failure with hypercapnia Code(s): J96.22 - ACUTE AND CHRONIC RESPIRATORY FAILURE WITH HYPERCAPNIA (2) COPD (chronic obstructive pulmonary disease) Code(s): J44.9 - CHRONIC OBSTRUCTIVE PULMONARY DISEASE, UNSPECIFIED Qualifiers: COPD type: unspecified COPD Qualified Code(s): J44.9 - Chronic obstructive pulmonary disease, unspecified (3) Acute exacerbation of chronic obstructive pulmonary disease (COPD) Code(s): J44.1 - CHRONIC OBSTRUCTIVE PULMONARY DISEASE W (ACUTE) EXACERBATION (4) Anemia Code(s): D64.9 - ANEMIA, UNSPECIFIED (5) CAD (coronary artery disease) Code(s): I25.10 - ATHSCL HEART DISEASE OF [place] CORONARY ARTERY W/O ANG PCTRS (6) Cachexia Code(s): R64 - [place] (7) Cough Code(s): R05 - COUGH (8) HLD (hyperlipidemia) Code(s): E78.5 - HYPERLIPIDEMIA, UNSPECIFIED (9) HTN (hypertension) Code(s): I10 - ESSENTIAL (PRIMARY) HYPERTENSION (10) Severe malnutrition Code(s): E43 - UNSPECIFIED SEVERE PROTEIN-CALORIE MALNUTRITION (11) Status post right shoulder hemiarthroplasty Code(s): Z96.611 - PRESENCE OF RIGHT ARTIFICIAL SHOULDER JOINT (12) URI (upper respiratory infection) Code(s): J06.9 - ACUTE UPPER RESPIRATORY INFECTION, UNSPECIFIED Assessment/Plan IMP ACUTE ON CHRONIC HYPOXEMIC/HYPERCAPNEIC RESPIRATORY FAILURE COPD EXACERBATION LIKELY URI HTN ASHD S/P STENTS H/O DVT/PE [place] PLAN INHALED BRONCHODILATORS O2 TO MAINTAIN O2 SAT 90% OR GREATER TAPER MEDROL ABX BIPAP NEEDED DR LOPEZ Problem List - Problems (1) Acute on chronic respiratory failure with hypercapnia Code(s): J96.22 - ACUTE AND CHRONIC RESPIRATORY FAILURE WITH HYPERCAPNIA (2) COPD (chronic obstructive pulmonary disease) Code(s): J44.9 - CHRONIC OBSTRUCTIVE PULMONARY DISEASE, UNSPECIFIED Qualifiers: COPD type: unspecified COPD Qualified Code(s): J44.9 - Chronic obstructive pulmonary disease, unspecified (3) Acute exacerbation of chronic obstructive pulmonary disease (COPD) Code(s): J44.1 - CHRONIC OBSTRUCTIVE PULMONARY DISEASE W (ACUTE) EXACERBATION (4) Anemia Code(s): D64.9 - ANEMIA, UNSPECIFIED (5) CAD (coronary artery disease) Code(s): I25.10 - ATHSCL HEART DISEASE OF [place] CORONARY ARTERY W/O ANG PCTRS (6) Cachexia Code(s): R64 - [place] (7) Cough Code(s): R05 - COUGH (8) HLD (hyperlipidemia) Code(s): E78.5 - HYPERLIPIDEMIA, UNSPECIFIED (9) HTN (hypertension) Code(s): I10 - ESSENTIAL (PRIMARY) HYPERTENSION (10) Severe malnutrition Code(s): E43 - UNSPECIFIED SEVERE PROTEIN-CALORIE MALNUTRITION (11) Status post right shoulder hemiarthroplasty Code(s): Z96.611 - PRESENCE OF RIGHT ARTIFICIAL SHOULDER JOINT (12) URI (upper respiratory infection) Code(s): J06.9 - ACUTE UPPER RESPIRATORY INFECTION, UNSPECIFIED
[2019-04-20] MEDS: ALBUTEROL SO4 2.5/IPRATROPIUM 0.5 INH SOL 3 ML VIAL.NEB. NEB PRN (20:40)
[2019-04-20] MEDS: methylPREDNISolone NA SUCC 40 MG/1 ML VIAL IVPUSH SCH (21:30)
[2019-04-20] MEDS: guaiFENesin/D-METHORPHAN HB 10 ML UNIT-DOSE CUPS PO PRN (21:30)
[2019-04-20] MEDS: MONTELUKAST NA 10 MG TABLET PO SCH (21:30)
[2019-04-20] MEDS: ATORVASTATIN CA 10 MG TABLET (FP) PO SCH (21:30)
[2019-04-20] MEDS: DOCUSATE SODIUM 100 MG CAPSULE (FP) PO PRN (21:36)
[2019-04-21 08:10] LABS: HEMATOCRIT 37.7 % (35.4-49); MCH 24.1 pg (25.7-33.7); MCHC 31.9 g/dl (32.0-35.9); MEAN CELL VOLUME 75.6 fl (80-96); MEAN PLT VOLUME 9.1 fl (7.5-11.1); PLATELET COUNT 174 K/MM3 (134-434); RBC 4.98 M/mm3 (4.00-5.60); RDW 17.8 % (11.9-15.9); WHITE BLOOD COUNT 9.3 K/mm3 (4.0-10.0)
[2019-04-21 08:37] LABS: BLOOD UREA NITROGEN 19.6 mg/dL (7-18); CALCIUM 8.6 mg/dL (8.5-10.1); CREATININE 0.5 mg/dL (0.55-1.3); POTASSIUM 4.5 mmol/L (3.5-5.1)
--- NOTE | 2019-04-21 09:05 | PN ---
Progress Note, Physician Chief Complaint: in bed NAD VSS no new c/o less SOB less cough - Current Medication List Current Medications: Active Medications Acetaminophen (Tylenol -) 650 mg PO Q8H PRN PRN Reason: PAIN 1-6 Albuterol Sulfate (Ventolin 0.083% Nebulizer Soln -) 1 amp NEB RQID PRN PRN Reason: SHORT OF BREATH/WHEEZING Last Admin: 04/20/19 12:02 Dose: 1 amp Albuterol/Ipratropium (Duoneb -) 1 amp NEB RQID PRN PRN Reason: SHORT OF BREATH/WHEEZING Last Admin: 04/20/19 20:40 Dose: 1 amp Atorvastatin Calcium (Lipitor -) 10 mg PO HS [facility] Last Admin: 04/20/19 21:30 Dose: 10 mg Azithromycin (Zithromax -) 500 mg PO DAILY [facility] Last Admin: 04/20/19 10:35 Dose: 500 mg Diltiazem HCl (Cardizem Cd -) 120 mg PO DAILY [facility] Last Admin: 04/20/19 10:35 Dose: 120 mg Docusate Sodium (Colace -) 100 mg PO BID PRN PRN Reason: CONSTIPATION Last Admin: 04/20/19 21:36 Dose: 100 mg Guaifenesin (Robitussin Dm -) 10 ml PO Q4H PRN PRN Reason: COUGH Last Admin: 04/19/19 14:13 Dose: 10 ml Heparin Sodium (Porcine) (Heparin -) 5,000 unit SQ BID [facility] Last Admin: 04/20/19 21:30 Dose: 5,000 unit Magnesium Oxide (Mag-Ox -) 400 mg PO BID [facility] Last Admin: 04/20/19 21:30 Dose: 400 mg Methylprednisolone Sodium Succinate (Solu-Medrol -) 40 mg IVPUSH BID [facility] Last Admin: 04/20/19 21:30 Dose: 40 mg Montelukast Sodium (Singulair -) 10 mg PO HS [facility] Last Admin: 04/20/19 21:30 Dose: 10 mg Pantoprazole Sodium (Protonix -) 40 mg PO DAILY [facility] Last Admin: 04/20/19 10:35 Dose: 40 mg Phenytoin Sodium (Dilantin -) 100 mg PO BID [facility] Last Admin: 04/20/19 21:30 Dose: 100 mg - Objective Vital Signs: Vital Signs Temperature 97.0 F L 04/21/19 06:23 Pulse Rate 63 04/21/19 06:23 Respiratory Rate 18 04/21/19 06:23 Blood Pressure 122/65 04/21/19 06:23 O2 Sat by Pulse Oximetry (%) 98 04/21/19 08:07 Constitutional: Yes: No Distress, Calm Eyes: Yes: Conjunctiva Clear HENT: Yes: Atraumatic Neck: Yes: Supple Cardiovascular: Yes: Regular Rate and Rhythm Respiratory: Yes: CTA Bilaterally Gastrointestinal: Yes: Soft. No: Tenderness Genitourinary: No: CVA Tenderness - Left, CVA Tenderness - Right Musculoskeletal: No: Joint Stiffness, Joint Swelling Extremities: No: Cold, Cool, Cyanosis Edema: No Integumentary: No: Rash, Venous Stasis Changes Neurological: Yes: WNL, Alert, Oriented ...Motor Strength: WNL Psychiatric: Yes: WNL, Alert, Oriented. No: Agitated, Suicidal Ideation Labs: CBC, BMP 04/21/19 07:50 04/21/19 07:50 - ....Imaging Other: Report Reviewed Assessment/Plan 73 YOM ADMITTED WITH ACUTE ON CHRONIC HYPOXEMIC/HYPERCAPNEIC RESPIRATORY FAILURE , COPD EXACERBATION SEC TO ACUTE URI ALSO H/O HTN, ASHD S/P STENTS, H/O DVT/PE, [place] INHALED BRONCHODILATORS O2 TO MAINTAIN O2 SAT 90% OR GREATER CONTINUE MEDROL, ABX; BIPAP NEEDED CARDIO / PULM F/U PT REHAV; CM FOR DC PLANNING; PT WAS IN [facility] IN THE PAST THEN WENT HOME, HE WANTS TO GO BACK HOME, NO SNF/NH [place]ALL[place] DECUBS DVT PFX D/W PT AND STAFF
[2019-04-21] MEDS: HEPARIN NA (PORCINE) 5,000 UNITS/ML 1ML VIAL SQ SCH ×2 (10:22→21:00)
[2019-04-21] MEDS: AZITHROMYCIN 250 MG TABLET PO SCH (10:22)
[2019-04-21] MEDS: PHENYTOIN NA EXTENDED 100 MG CAPSULE (FP) PO SCH ×2 (10:22→21:00)
[2019-04-21] MEDS: PANTOPRAZOLE 40 MG TABLET (FP) PO SCH (10:22)
[2019-04-21] MEDS: methylPREDNISolone NA SUCC 40 MG/1 ML VIAL IVPUSH SCH ×2 (10:22→21:00)
[2019-04-21] MEDS: MAGNESIUM OXIDE 400 MG TABLET (FP) PO SCH ×2 (10:22→21:00)
[2019-04-21] MEDS: DOCUSATE SODIUM 100 MG CAPSULE (FP) PO PRN ×2 (10:27→21:00)
--- NOTE | 2019-04-21 12:23 | PN ---
Progress Note, Physician History of Present Illness: pulmonary alert,feeling better,sob improving,less cough - Current Medication List Current Medications: Active Medications Acetaminophen (Tylenol -) 650 mg PO Q8H PRN PRN Reason: PAIN 1-6 Albuterol Sulfate (Ventolin 0.083% Nebulizer Soln -) 1 amp NEB RQID PRN PRN Reason: SHORT OF BREATH/WHEEZING Last Admin: 04/20/19 12:02 Dose: 1 amp Albuterol/Ipratropium (Duoneb -) 1 amp NEB RQID PRN PRN Reason: SHORT OF BREATH/WHEEZING Last Admin: 04/20/19 20:40 Dose: 1 amp Atorvastatin Calcium (Lipitor -) 10 mg PO HS [facility] Last Admin: 04/20/19 21:30 Dose: 10 mg Azithromycin (Zithromax -) 500 mg PO DAILY [facility] Last Admin: 04/21/19 10:22 Dose: 500 mg Diltiazem HCl (Cardizem Cd -) 120 mg PO DAILY [facility] Last Admin: 04/21/19 10:22 Dose: 120 mg Docusate Sodium (Colace -) 100 mg PO BID PRN PRN Reason: CONSTIPATION Last Admin: 04/21/19 10:27 Dose: 100 mg Guaifenesin (Robitussin Dm -) 10 ml PO Q4H PRN PRN Reason: COUGH Last Admin: 04/19/19 14:13 Dose: 10 ml Heparin Sodium (Porcine) (Heparin -) 5,000 unit SQ BID [facility] Last Admin: 04/21/19 10:22 Dose: 5,000 unit Magnesium Oxide (Mag-Ox -) 400 mg PO BID [facility] Last Admin: 04/21/19 10:22 Dose: 400 mg Methylprednisolone Sodium Succinate (Solu-Medrol -) 40 mg IVPUSH BID [facility] Last Admin: 04/21/19 10:22 Dose: 40 mg Montelukast Sodium (Singulair -) 10 mg PO HS [facility] Last Admin: 04/20/19 21:30 Dose: 10 mg Pantoprazole Sodium (Protonix -) 40 mg PO DAILY [facility] Last Admin: 04/21/19 10:22 Dose: 40 mg Phenytoin Sodium (Dilantin -) 100 mg PO BID [facility] Last Admin: 04/21/19 10:22 Dose: 100 mg - Objective Vital Signs: Vital Signs Temperature 97.6 F 04/21/19 10:30 Pulse Rate 72 04/21/19 10:30 Respiratory Rate 20 04/21/19 10:30 Blood Pressure 128/56 L 04/21/19 10:30 O2 Sat by Pulse Oximetry (%) 98 04/21/19 08:07 Constitutional: Yes: Calm, Cachectic Eyes: Yes: WNL HENT: Yes: WNL Neck: Yes: WNL Cardiovascular: Yes: Regular Rate and Rhythm, S1, S2 Respiratory: Yes: Diminished, Rhonchi (few rhonchi) Gastrointestinal: Yes: Normal Bowel Sounds, Soft Extremities: Yes: WNL Edema: No Labs: CBC, BMP 04/21/19 07:50 04/21/19 07:50 Problem List - Problems (1) Acute on chronic respiratory failure with hypercapnia Code(s): J96.22 - ACUTE AND CHRONIC RESPIRATORY FAILURE WITH HYPERCAPNIA (2) COPD (chronic obstructive pulmonary disease) Code(s): J44.9 - CHRONIC OBSTRUCTIVE PULMONARY DISEASE, UNSPECIFIED Qualifiers: COPD type: unspecified COPD Qualified Code(s): J44.9 - Chronic obstructive pulmonary disease, unspecified (3) Acute exacerbation of chronic obstructive pulmonary disease (COPD) Code(s): J44.1 - CHRONIC OBSTRUCTIVE PULMONARY DISEASE W (ACUTE) EXACERBATION (4) Anemia Code(s): D64.9 - ANEMIA, UNSPECIFIED (5) CAD (coronary artery disease) Code(s): I25.10 - ATHSCL HEART DISEASE OF [place] CORONARY ARTERY W/O ANG PCTRS (6) Cachexia Code(s): R64 - [place] (7) Cough Code(s): R05 - COUGH (8) HLD (hyperlipidemia) Code(s): E78.5 - HYPERLIPIDEMIA, UNSPECIFIED (9) HTN (hypertension) Code(s): I10 - ESSENTIAL (PRIMARY) HYPERTENSION (10) Severe malnutrition Code(s): E43 - UNSPECIFIED SEVERE PROTEIN-CALORIE MALNUTRITION (11) Status post right shoulder hemiarthroplasty Code(s): Z96.611 - PRESENCE OF RIGHT ARTIFICIAL SHOULDER JOINT (12) URI (upper respiratory infection) Code(s): J06.9 - ACUTE UPPER RESPIRATORY INFECTION, UNSPECIFIED Assessment/Plan IMP ACUTE ON CHRONIC HYPOXEMIC/HYPERCAPNEIC RESPIRATORY FAILURE COPD EXACERBATION LIKELY URI HTN ASHD S/P STENTS H/O DVT/PE [place] PLAN INHALED BRONCHODILATORS O2 TO MAINTAIN O2 SAT 90% OR GREATER TAPER MEDROL ABX BIPAP NEEDED DR LOPEZ Problem List - Problems (1) Acute on chronic respiratory failure with hypercapnia Code(s): J96.22 - ACUTE AND CHRONIC RESPIRATORY FAILURE WITH HYPERCAPNIA (2) COPD (chronic obstructive pulmonary disease) Code(s): J44.9 - CHRONIC OBSTRUCTIVE PULMONARY DISEASE, UNSPECIFIED Qualifiers: COPD type: unspecified COPD Qualified Code(s): J44.9 - Chronic obstructive pulmonary disease, unspecified (3) Acute exacerbation of chronic obstructive pulmonary disease (COPD) Code(s): J44.1 - CHRONIC OBSTRUCTIVE PULMONARY DISEASE W (ACUTE) EXACERBATION (4) Anemia Code(s): D64.9 - ANEMIA, UNSPECIFIED (5) CAD (coronary artery disease) Code(s): I25.10 - ATHSCL HEART DISEASE OF [place] CORONARY ARTERY W/O ANG PCTRS (6) Cachexia Code(s): R64 - [place] (7) Cough Code(s): R05 - COUGH (8) HLD (hyperlipidemia) Code(s): E78.5 - HYPERLIPIDEMIA, UNSPECIFIED (9) HTN (hypertension) Code(s): I10 - ESSENTIAL (PRIMARY) HYPERTENSION (10) Severe malnutrition Code(s): E43 - UNSPECIFIED SEVERE PROTEIN-CALORIE MALNUTRITION (11) Status post right shoulder hemiarthroplasty Code(s): Z96.611 - PRESENCE OF RIGHT ARTIFICIAL SHOULDER JOINT (12) URI (upper respiratory infection) Code(s): J06.9 - ACUTE UPPER RESPIRATORY INFECTION, UNSPECIFIED
[2019-04-21] MEDS: ATORVASTATIN CA 10 MG TABLET (FP) PO SCH (21:00)
[2019-04-21] MEDS: MONTELUKAST NA 10 MG TABLET PO SCH (21:00)
[2019-04-22] MEDS: PANTOPRAZOLE 40 MG TABLET (FP) PO SCH (09:30)
[2019-04-22] MEDS: predniSONE 20 MG TABLET (UD) PO SCH (09:30)
[2019-04-22] MEDS: PHENYTOIN NA EXTENDED 100 MG CAPSULE (FP) PO SCH ×2 (09:30→21:29)
[2019-04-22] MEDS: MAGNESIUM OXIDE 400 MG TABLET (FP) PO SCH ×2 (09:30→21:29)
[2019-04-22] MEDS: HEPARIN NA (PORCINE) 5,000 UNITS/ML 1ML VIAL SQ SCH ×2 (09:30→21:29)
[2019-04-22] MEDS: AZITHROMYCIN 250 MG TABLET PO SCH (09:30)
[2019-04-22] MEDS: DOCUSATE SODIUM 100 MG CAPSULE (FP) PO PRN (09:34)
--- NOTE | 2019-04-22 11:33 | PN ---
Progress Note, Physician Chief Complaint: pulmonary alert,comfortable,breating better,-resp distress,less cough - Current Medication List Current Medications: Active Medications Acetaminophen (Tylenol -) 650 mg PO Q8H PRN PRN Reason: PAIN 1-6 Albuterol Sulfate (Ventolin 0.083% Nebulizer Soln -) 1 amp NEB RQID PRN PRN Reason: SHORT OF BREATH/WHEEZING Last Admin: 04/20/19 12:02 Dose: 1 amp Albuterol/Ipratropium (Duoneb -) 1 amp NEB RQID PRN PRN Reason: SHORT OF BREATH/WHEEZING Last Admin: 04/20/19 20:40 Dose: 1 amp Atorvastatin Calcium (Lipitor -) 10 mg PO HS [facility] Last Admin: 04/21/19 21:00 Dose: 10 mg Azithromycin (Zithromax -) 500 mg PO DAILY [facility] Last Admin: 04/22/19 09:30 Dose: 500 mg Diltiazem HCl (Cardizem Cd -) 120 mg PO DAILY [facility] Last Admin: 04/22/19 09:30 Dose: 120 mg Docusate Sodium (Colace -) 100 mg PO BID PRN PRN Reason: CONSTIPATION Last Admin: 04/22/19 09:34 Dose: 100 mg Guaifenesin (Robitussin Dm -) 10 ml PO Q4H PRN PRN Reason: COUGH Last Admin: 04/19/19 14:13 Dose: 10 ml Heparin Sodium (Porcine) (Heparin -) 5,000 unit SQ BID [facility] Last Admin: 04/22/19 09:30 Dose: 5,000 unit Magnesium Oxide (Mag-Ox -) 400 mg PO BID [facility] Last Admin: 04/22/19 09:30 Dose: 400 mg Montelukast Sodium (Singulair -) 10 mg PO HS [facility] Last Admin: 04/21/19 21:00 Dose: 10 mg Pantoprazole Sodium (Protonix -) 40 mg PO DAILY [facility] Last Admin: 04/22/19 09:30 Dose: 40 mg Phenytoin Sodium (Dilantin -) 100 mg PO BID [facility] Last Admin: 04/22/19 09:30 Dose: 100 mg Prednisone (Deltasone -) 40 mg PO DAILY [facility] Last Admin: 04/22/19 09:30 Dose: 40 mg - Objective Vital Signs: Vital Signs Temperature 97.7 F 04/22/19 09:18 Pulse Rate 70 08/16/19 09:18 Respiratory Rate 19 04/22/19 09:18 Blood Pressure 121/71 04/22/19 09:18 O2 Sat by Pulse Oximetry (%) 99 04/22/19 09:00 Constitutional: Yes: Calm, Cachectic Eyes: Yes: WNL HENT: Yes: WNL Neck: Yes: WNL Cardiovascular: Yes: Regular Rate and Rhythm, S1, S2 Respiratory: Yes: Diminished Gastrointestinal: Yes: Normal Bowel Sounds, Soft Extremities: Yes: WNL Edema: No Labs: CBC, BMP 04/21/19 07:50 Problem List - Problems (1) Acute on chronic respiratory failure with hypercapnia Code(s): J96.22 - ACUTE AND CHRONIC RESPIRATORY FAILURE WITH HYPERCAPNIA (2) COPD (chronic obstructive pulmonary disease) Code(s): J44.9 - CHRONIC OBSTRUCTIVE PULMONARY DISEASE, UNSPECIFIED Qualifiers: COPD type: unspecified COPD Qualified Code(s): J44.9 - Chronic obstructive pulmonary disease, unspecified (3) Acute exacerbation of chronic obstructive pulmonary disease (COPD) Code(s): J44.1 - CHRONIC OBSTRUCTIVE PULMONARY DISEASE W (ACUTE) EXACERBATION (4) Anemia Code(s): D64.9 - ANEMIA, UNSPECIFIED (5) CAD (coronary artery disease) Code(s): I25.10 - ATHSCL HEART DISEASE OF [place] CORONARY ARTERY W/O ANG PCTRS (6) Cachexia Code(s): R64 - [place] (7) Cough Code(s): R05 - COUGH (8) HLD (hyperlipidemia) Code(s): E78.5 - HYPERLIPIDEMIA, UNSPECIFIED (9) HTN (hypertension) Code(s): I10 - ESSENTIAL (PRIMARY) HYPERTENSION (10) Severe malnutrition Code(s): E43 - UNSPECIFIED SEVERE PROTEIN-CALORIE MALNUTRITION (11) Status post right shoulder hemiarthroplasty Code(s): Z96.611 - PRESENCE OF RIGHT ARTIFICIAL SHOULDER JOINT (12) URI (upper respiratory infection) Code(s): J06.9 - ACUTE UPPER RESPIRATORY INFECTION, UNSPECIFIED Assessment/Plan IMP ACUTE ON CHRONIC HYPOXEMIC/HYPERCAPNEIC RESPIRATORY FAILURE CLINICALLY IMPROVED COPD EXACERBATION IMPROVED LIKELY URI HTN ASHD S/P STENTS H/O DVT/PE [place] PLAN INHALED BRONCHODILATORS O2 TO MAINTAIN O2 SAT 90% OR GREATER PREDNISONE TAPER OUTPATIENT ABX HOME O2 DR LOPEZ Problem List - Problems (1) Acute on chronic respiratory failure with hypercapnia Code(s): J96.22 - ACUTE AND CHRONIC RESPIRATORY FAILURE WITH HYPERCAPNIA (2) COPD (chronic obstructive pulmonary disease) Code(s): J44.9 - CHRONIC OBSTRUCTIVE PULMONARY DISEASE, UNSPECIFIED Qualifiers: COPD type: unspecified COPD Qualified Code(s): J44.9 - Chronic obstructive pulmonary disease, unspecified (3) Acute exacerbation of chronic obstructive pulmonary disease (COPD) Code(s): J44.1 - CHRONIC OBSTRUCTIVE PULMONARY DISEASE W (ACUTE) EXACERBATION (4) Anemia Code(s): D64.9 - ANEMIA, UNSPECIFIED (5) CAD (coronary artery disease) Code(s): I25.10 - ATHSCL HEART DISEASE OF [place] CORONARY ARTERY W/O ANG PCTRS (6) Cachexia Code(s): R64 - [place] (7) Cough Code(s): R05 - COUGH (8) HLD (hyperlipidemia) Code(s): E78.5 - HYPERLIPIDEMIA, UNSPECIFIED (9) HTN (hypertension) Code(s): I10 - ESSENTIAL (PRIMARY) HYPERTENSION (10) Severe malnutrition Code(s): E43 - UNSPECIFIED SEVERE PROTEIN-CALORIE MALNUTRITION (11) Status post right shoulder hemiarthroplasty Code(s): Z96.611 - PRESENCE OF RIGHT ARTIFICIAL SHOULDER JOINT (12) URI (upper respiratory infection) Code(s): J06.9 - ACUTE UPPER RESPIRATORY INFECTION, UNSPECIFIED
--- NOTE | 2019-04-22 18:45 | PN ---
Progress Note, Physician Chief Complaint: some SOB noted; per pulm can change steroids to po; pt does not feel comfortable to go home today - Current Medication List Current Medications: Active Medications Acetaminophen (Tylenol -) 650 mg PO Q8H PRN PRN Reason: PAIN 1-6 Albuterol Sulfate (Ventolin 0.083% Nebulizer Soln -) 1 amp NEB RQID PRN PRN Reason: SHORT OF BREATH/WHEEZING Last Admin: 04/20/19 12:02 Dose: 1 amp Albuterol/Ipratropium (Duoneb -) 1 amp NEB RQID PRN PRN Reason: SHORT OF BREATH/WHEEZING Last Admin: 04/20/19 20:40 Dose: 1 amp Atorvastatin Calcium (Lipitor -) 10 mg PO HS [facility] Last Admin: 04/21/19 21:00 Dose: 10 mg Azithromycin (Zithromax -) 500 mg PO DAILY [facility] Last Admin: 04/22/19 09:30 Dose: 500 mg Diltiazem HCl (Cardizem Cd -) 120 mg PO DAILY [facility] Last Admin: 04/22/19 09:30 Dose: 120 mg Docusate Sodium (Colace -) 100 mg PO BID PRN PRN Reason: CONSTIPATION Last Admin: 04/22/19 09:34 Dose: 100 mg Guaifenesin (Robitussin Dm -) 10 ml PO Q4H PRN PRN Reason: COUGH Last Admin: 04/19/19 14:13 Dose: 10 ml Heparin Sodium (Porcine) (Heparin -) 5,000 unit SQ BID [facility] Last Admin: 04/22/19 09:30 Dose: 5,000 unit Magnesium Oxide (Mag-Ox -) 400 mg PO BID [facility] Last Admin: 04/22/19 09:30 Dose: 400 mg Montelukast Sodium (Singulair -) 10 mg PO HS [facility] Last Admin: 04/21/19 21:00 Dose: 10 mg Pantoprazole Sodium (Protonix -) 40 mg PO DAILY [facility] Last Admin: 04/22/19 09:30 Dose: 40 mg Phenytoin Sodium (Dilantin -) 100 mg PO BID [facility] Last Admin: 04/22/19 09:30 Dose: 100 mg Prednisone (Deltasone -) 40 mg PO DAILY [facility] Last Admin: 04/22/19 09:30 Dose: 40 mg - Objective Vital Signs: Vital Signs Temperature 97.5 F L 04/22/19 14:01 Pulse Rate 84 04/22/19 14:01 Respiratory Rate 16 04/22/19 14:01 Blood Pressure 126/72 04/22/19 14:01 O2 Sat by Pulse Oximetry (%) 99 04/22/19 09:00 Constitutional: Yes: No Distress, Calm Eyes: Yes: Conjunctiva Clear HENT: Yes: Atraumatic Neck: Yes: Supple Cardiovascular: Yes: Regular Rate and Rhythm Respiratory: Yes: CTA Bilaterally Gastrointestinal: Yes: Soft. No: Tenderness Genitourinary: No: CVA Tenderness - Left, CVA Tenderness - Right Musculoskeletal: No: Joint Stiffness, Joint Swelling Extremities: No: Cold, Cool, Cyanosis Edema: No Integumentary: No: Rash, Venous Stasis Changes Neurological: Yes: WNL, Alert, Oriented ...Motor Strength: WNL Psychiatric: Yes: WNL, Alert, Oriented. No: Agitated, Suicidal Ideation Labs: CBC, BMP 04/21/19 07:50 04/21/19 07:50 - ....Imaging Other: Report Reviewed Assessment/Plan 73 YOM ADMITTED WITH ACUTE ON CHRONIC HYPOXEMIC/HYPERCAPNEIC RESPIRATORY FAILURE , COPD EXACERBATION SEC TO ACUTE URI ALSO H/O HTN, ASHD S/P STENTS, H/O DVT/PE, [place] INHALED BRONCHODILATORS O2 TO MAINTAIN O2 SAT 90% OR GREATER CONTINUE steroids, ABX; BIPAP NEEDED CARDIO / PULM F/U PT REHAb; CM FOR DC PLANNING; PT WAS IN [facility] IN THE PAST THEN WENT HOME, HE WANTS TO GO BACK HOME, NO SNF/NH FALLS DECUBS DVT PFX D/W PT AND STAFF
[2019-04-22] MEDS: ATORVASTATIN CA 10 MG TABLET (FP) PO SCH (21:29)
[2019-04-22] MEDS: guaiFENesin/D-METHORPHAN HB 10 ML UNIT-DOSE CUPS PO PRN (21:29)
[2019-04-22] MEDS: MONTELUKAST NA 10 MG TABLET PO SCH (21:29)
[2019-04-23] MEDS: PHENYTOIN NA EXTENDED 100 MG CAPSULE (FP) PO SCH (09:33)
[2019-04-23] MEDS: PANTOPRAZOLE 40 MG TABLET (FP) PO SCH (09:33)
[2019-04-23] MEDS: MAGNESIUM OXIDE 400 MG TABLET (FP) PO SCH (09:33)
[2019-04-23] MEDS: predniSONE 20 MG TABLET (UD) PO SCH (09:33)
[2019-04-23] MEDS: AZITHROMYCIN 250 MG TABLET PO SCH (09:33)
[2019-04-23] MEDS: HEPARIN NA (PORCINE) 5,000 UNITS/ML 1ML VIAL SQ SCH (09:34)
--- NOTE | 2019-04-23 10:05 | DS ---
Physical Examination Vital Signs: Vital Signs Temperature 97.2 F L 04/23/19 09:40 Pulse Rate 73 04/23/19 09:40 Respiratory Rate 20 04/23/19 09:40 Blood Pressure 115/66 04/23/19 09:40 O2 Sat by Pulse Oximetry (%) 99 04/22/19 20:05 Findings/Remarks: feeling well wants to go home; to taper steroids as ordered; f/u PCP cardiology and pulmonary over the next few weeks has home O2; d/w CM PT [employer] - has [employer] 5d/w his nephew helps him walked 80 feet in PT has a cane / falls PFX d/w pt was in [facility] before but does not want NH / SNF but wants to go home - d/w pt and taff and PT, his nephew can come this afternoon to to help him with home DC Constitutional: Yes: No Distress, Calm Eyes: Yes: Conjunctiva Clear HENT: Yes: Atraumatic Neck: Yes: Supple Cardiovascular: Yes: Regular Rate and Rhythm Respiratory: Yes: CTA Bilaterally Gastrointestinal: Yes: Soft. No: Tenderness Renal/: No: CVA Tenderness - Left, CVA Tenderness - Right Musculoskeletal: No: Joint Stiffness, Joint Swelling Extremities: No: Cold, Cool, Cyanosis Edema: No Integumentary: No: Rash, Venous Stasis Changes Neurological: Yes: WNL, Alert, Oriented ...Motor Strength: WNL Psychiatric: Yes: WNL, Alert, Oriented. No: Agitated, Suicidal Ideation Labs: CBC, BMP 04/21/19 07:50 04/21/19 07:50 Discharge Summary Reason For Visit: CHRONIC OBSTRUCTIVE PULMONARY DISEASE Current Active Problems Acute on chronic respiratory failure with hypercapnia (Acute) Acute respiratory failure with hypoxia and hypercapnia (Acute) COPD (chronic obstructive pulmonary disease) (Acute) Procedures: Principal: 73 YOM COPD O2 dep ASHD OA admitted with acute bronchitis and COPD exac Other Procedures: IV steroids, nebs, IV ATB; seen by pulmonary Hospital Course: improved; DC Home with po tapering steroids, home O2; f/u PULM and PCP and cardio in 1-2 weeks Condition: Fair - Instructions Diet, Activity, Other Instructions: f/u PCP cardiology and pulmonary in 1-2 weeks after DC Home; VNS, home PT; falls precautions use nebs, O2 as advised; RTER if worse or recurrent c/o Referrals: Betty Durán [Staff Physician] - Flex Mo MD [Staff Physician] - Dimitri Sexton MD [Staff Physician] - Disposition: VNS/HOME HEALTH CARE - Home Medications Comprehensive Discharge Medication List: Ambulatory Orders Phenytoin Na Extended [Dilantin -] 100 mg PO BID 06/11/14 Montelukast Na [Singulair -] 10 mg PO HS #90 tablet 06/15/14 Simvastatin [Zocor -] 20 mg PO HS #90 06/15/14 Magnesium Oxide [Mag-Ox -] 400 mg PO BID tablet 09/06/18 Acetaminophen [Tylenol .Regular Strength -] 650 mg PO Q8H 10/18/18 Guaifenesin Dm [Robitussin Dm -] 10 ml PO Q4H PRN cup 10/25/18 Diltiazem Cd [Cardizem Cd -] 120 mg PO DAILY cap.cd.24h 01/11/19 Pantoprazole Suspension [Protonix Packets For Oral Suspension -] 40 mg PO DAILY #20 packet 01/11/19 Albuterol 0.083% Nebulizer Ar[place] [Ventolin 0.083% Nebulizer Soln -] 1 amp NEB RQID PRN 04/17/19 Albuterol 2.5/Ipratropium 0.5 [Duoneb -] 1 amp NEB RQID PRN 04/17/19
[2019-04-23 15:33] VITALS: BP 120/70; PULSE 82; TEMP 98
== END 2019-04-23 20:20 | disposition home health service (06) | DRG 190 ==
LOC: JER 06:03 → JERBED 08:31 → J4S 20:23
PROVIDERS: ADMIT Specialist; ATTEND Specialist
PROC: 5A09357 Assistance with Respiratory Ventilation, Less than 24 Consecutive Hours, Continuous Positive Airway Pressure (ICD-10-PCS; principal; 2019-04-17)
PROC: 3E0F7GC Introduction of Other Therapeutic Substance into Respiratory Tract, Via Natural or Artificial Opening (ICD-10-PCS; 2019-04-17)
DX: J44.0 Chronic obstructive pulmonary disease with (acute) lower respiratory infection (principal); J96.02 Acute respiratory failure with hypercapnia; E43 Unspecified severe protein-calorie malnutrition; J96.01 Acute respiratory failure with hypoxia; E41 Nutritional marasmus; Z68.1 Body mass index [BMI] 19.9 or less, adult; E87.2 Acidosis; J44.1 Chronic obstructive pulmonary disease with (acute) exacerbation; I10 Essential (primary) hypertension; J20.9 Acute bronchitis, unspecified; I25.10 Atherosclerotic heart disease of native coronary artery without angina pectoris; Z87.891 Personal history of nicotine dependence; Z98.61 Coronary angioplasty status; E78.5 Hyperlipidemia, unspecified; Z86.73 Personal history of transient ischemic attack (TIA), and cerebral infarction without residual deficits; R56.9 Unspecified convulsions; K21.9 Gastro-esophageal reflux disease without esophagitis; Z96.641 Presence of right artificial hip joint; Z99.81 Dependence on supplemental oxygen; Z96.611 Presence of right artificial shoulder joint
CPT/HCPCS: 36415; 36600; 71045-TC-FY; 80048; 80053; 82375; 82550; 82803; 83050; 83880; 84484; 85025; 85027; 87040; 93005; 93010; 94640; 94660; 97116-GP; 97162-GP; 99285-25; J1644

== ENCOUNTER 2019-05-30 19:32 | Inpatient (IN) | payer OTHER ==
[2019-05-30] MEDS ORDERED: ALBUTEROL SO4 2.5/IPRATROPIUM 0.5 INH SOL 3 ML VIAL.NEB. NEB ONE ×3 (19:41→19:58)
[2019-05-30] MEDS ORDERED: methylPREDNISolone NA SUCC 125 MG/2 ML VIAL IVPB ONE (19:41)
[2019-05-30] MEDS ORDERED: DEXAMETHASONE SOD PHOSPHATE 10 MG/1 ML VIAL ONE (19:43)
[2019-05-30] MEDS ORDERED: EPINEPHrine/PF 1 MG/1 ML (1:1,000) AMPULE ONE (19:43)
[2019-05-30] MEDS ORDERED: methylPREDNISolone NA SUCC 125 MG/2 ML VIAL ONE (19:58)
--- NOTE | 2019-05-30 20:01 | PDOC ---
History of Present Illness - General Chief Complaint: Shortness of Breath Stated Complaint: SHORTNESS OF BREATH Time Seen by Provider: 05/30/19 19:39 History Source: Patient Exam Limitations: No Limitations, Clinical Condition - History of Present Illness Initial Comments: Lukas Desir is a 73 yo M from [facility] w a hx of COPD and bronchitis O2 dependent on home O2, CAD s/p PCI with a cardiac stent, HTN, HLD, and GERD who presents to the [facility] er BIBEMS with respiratory distress on a CPAP machine. EMS believed the patient was having a bad asthma exacerbation on route so they administered Epi before arrival to the ER. Here in the ER the patient endorses 3 days of worsening SOB, runny nose, and difficulty breathing. The patient states that today he was not able to breathe and thinks that his bronchitis and COPD are acting up. He reports increased cough and sputum production over the past 3 days. Patient denies chest pain but endorses significant chest tightness and decreased ability to inspire air. PCP: Joshua Asencio Pulm: Dr. Mo PSH: Joint replacement, Stent Social Hx: Resident of [facility] Allergies: NKA, NKDA Past History - Past Medical History Allergies/Adverse Reactions: Allergies Allergy/AdvReac Type Severity Reaction Status Date / Time No Known Drug Allergies Allergy Verified 05/30/19 19:53 Home Medications: Ambulatory Orders Phenytoin Na Extended [Dilantin -] 100 mg PO BID 06/11/14 Montelukast Na [Singulair -] 10 mg PO HS #90 tablet 06/15/14 Simvastatin [Zocor -] 20 mg PO HS #90 06/15/14 Guaifenesin Dm [Robitussin Dm -] 10 ml PO Q4H PRN cup 10/25/18 Diltiazem Cd [Cardizem Cd -] 120 mg PO DAILY cap.cd.24h 01/11/19 Albuterol 0.083% Nebulizer Arlyn [Ventolin 0.083% Nebulizer Soln -] 1 amp NEB RQID PRN 04/17/19 Albuterol 2.5/Ipratropium 0.5 [Duoneb -] 1 amp NEB RQID PRN 04/17/19 Acetaminophen [Tylenol .Regular Strength -] 650 mg PO Q8H PRN tablet 04/23/19 Aspirin 81 mg PO DAILY 05/30/19 Fexofenadine/Pseudoephedrine [Kalpana-D 12 Hour Tablet] 1 each PO BID PRN Fluticasone Propionate [Flovent Diskus] 250 mcg IH Q12H 05/30/19 Tiotropium Bradley [Spiriva] 18 mcg IH DAILY 05/30/19 Anemia: No Cardiac Disorders: Yes (CAD s/p PCI stent) CVA: Yes COPD: Yes DVT: No Dialysis: No GI Disorders: Yes (GERD) HTN: Yes Hypercholesterolemia: Yes Kidney Stones: No Seizures: Yes - Surgical History Orthopedic Surgery: Yes (rt total hip) - Immunization History Immunization Up to Date: Yes - Suicide/Smoking/Psychosocial Hx Smoking Status: No Smoking History: Unknown if ever smoked Have you smoked in the past 12 months: No Number of Cigarettes Smoked Daily: 0 If you are a former smoker, when did you quit?: 14 years 'Breaking Loose' booklet given: 02/04/16 Hx Alcohol Use: No Drug/Substance Use Hx: No Substance Use Type: None Hx Substance Use Treatment: No Review of Systems - Review of Systems Able to Perform ROS?: Yes Comments:: CONSTITUTIONAL: Present: chills, fatigue Absent: fever EYES: Absent: visual changes ENT: Absent: ear pain, no sore throat CARDIOVASCULAR: Absent: chest pain, no palpitations RESPIRATORY: Present: cough, SOB GI: Absent: abdominal pain, no nausea, no vomiting, no constipation, no diarrhea GENITOURINARY: Absent: dysuria, no frequency, no hematuria MUSKULOSKELETAL: Absent: back pain, no arthralgia, no myalgia SKIN: Absent: rash NEURO: Absent: headache *Physical Exam - Vital Signs Last Vital Signs Temp Pulse Resp BP Pulse Ox 98 F 85 24 H 103/64 100 05/30/19 19:45 05/30/19 19:45 05/30/19 19:45 05/30/19 19:45 05/30/19 19:45 - Physical Exam Comments: GENERAL: Patient is on BiPap and has significant respiratory distress. He is skinny and cachectic HEENT: Normocephalic, atraumatic. PERRL, EOM intact. CARDIOVASCULAR: Regular rate and rhythm. PULMONARY: There is bilateral diffuse rhonchi and decreased air flow. Moderate evidence of respiratory distress. No wheezing or rales. ABDOMEN: Soft, non-distended, non-tender. EXTREMITIES: Limited ROM in all four extremities. SKIN: Warm, dry. No rash NEUROLOGICAL: No focal neurological deficits. ED Treatment Course - LABORATORY CBC & Chemistry Diagram: 05/30/19 20:10 05/30/19 20:10 - RADIOLOGY Radiology Studies Ordered: Category Date Time Status CHEST X-RAY PORTABLE* [RAD] Stat Radiology 05/30/19 19:43 Ordered Radiograph Interpretation: CXR: HISTORY PROVIDED: Wheezing, rule out infiltrate PA and lateral projections of the chest are submitted. The heart size is within normal limits. The lung trujillo are hyperaerated with increased interstitial markings consistent with moderately severe chronic obstructive pulmonary disease. No pulmonary infiltrates are identified. There is slight blunting of the right costophrenic angle and a trace amount of pleural fluid is suspected. The patient is S/P right shoulder replacement. IMPRESSION: Moderately severe COPD, no acute disease. Medical Decision Making - Medical Decision Making Lukas Desir is a 73 yo M from [facility] w a hx of COPD and bronchitis O2 dependent on home O2, CAD s/p PCI with a cardiac stent, HTN, HLD, and GERD who presents to the [facility] er BIBEMS with respiratory distress on a CPAP machine. EMS believed the patient was having a bad asthma exacerbation on route so they administered Epi before arrival to the ER. Here in the ER the patient endorses 3 days of worsening SOB, runny nose, and difficulty breathing. The patient states that today he was not able to breathe and thinks that his bronchitis and COPD are acting up. He reports increased cough and sputum production over the past 3 days. Patient denies chest pain but endorses significant chest tightness and decreased ability to inspire air. Vital Signs Temp Pulse Resp BP Pulse Ox 98 F 85 24 H 103/64 100 05/30/19 19:45 05/30/19 19:45 05/30/19 19:45 05/30/19 19:45 05/30/19 19:45 DDx IBNLT: COPD vs Asthma, PNA, electrolyte/metabolic disturbance, CAD, URI MDM: Patient appears to have a COPD exacerbation which might have been precipitated from a URI as he has a runny nose and significant difficulty breathing. - Given the recent cough with productive sputum this presentation is most consistent with acute worsening of a chronic bronchitis. Plan: Labs, CXR, EKG, duonebs, steroids, BiPap, empiric Abx, respiratory therapy , admit to hospital. Labs: Mild anemia of 9.9 which is an acute drop from 2 months prior. ABG unremarkable, patient does not appear to be retaining CO2 CXR: No acute pathology EKG: NS rate of 78, left anterior fascicular block, LAD, no hypertrophy, no ST elevations or depressions, TWI in aVL Disposition: Admit to hospital - Call placed to Dr. Durán at 9:10 pm for admission. Service says he will give ER a call back. - Leeanna said they no longer take care of this patient and this patient currently does not have a PCP. - Will page hospitalist for admisson - Patient admitted to Dr. Trammell's service *DC/Admit/Observation/Transfer Diagnosis at time of Disposition: Cough, Cachexia, Acute hypoxemic respiratory failure, Acute exacerbation of chronic obstructive pulmonary disease (COPD), Bronchitis, chronic with acute exacerbation COPD (chronic obstructive pulmonary disease) Qualifiers: COPD type: chronic bronchitis Chronic bronchitis type: unspecified Qualified Code(s): J42 - Unspecified chronic bronchitis Acute bronchitis Qualifiers: Bronchitis organism: unspecified organism Qualified Code(s): J20.9 - Acute bronchitis, unspecified URI (upper respiratory infection) Qualifiers: URI type: unspecified URI Qualified Code(s): J06.9 - Acute upper respiratory infection, unspecified Anemia Qualifiers: Anemia type: unspecified type Qualified Code(s): D64.9 - Anemia, unspecified - Discharge Dispostion Condition at time of disposition: Stable Decision to Admit order: Yes - Referrals - Patient Instructions - Post Discharge Activity
--- NOTE | 2019-05-30 20:13 | PDOC ---
Attending Attestation - Resident Resident Name: Jacob Walker - ED Attending Attestation I have performed the following: I have examined & evaluated the patient, The case was reviewed & discussed with the resident, I agree w/resident's findings & plan - HPI HPI: 05/30/19 22:58 see resident hpi - Physicial Exam PE: 05/30/19 22:58 agree with resident exam - Critical Care Time Total Critical Care Time: 45 Critical Care Statement: The care of this patient involved high complexity decision making to prevent further life threatening deterioration of the patient 's condition and/or to evaluate & treat vital organ system(s) failure or risk of failure. - Medical Decision Making 05/30/19 22:58 73-year-old male with history of COPD and acute shortness of breath patient received Solu-Medrol, DuoNeb's in the emergency department Exam and history consistent with acute on chronic bronchitis/COPD exacerbation Will admit to medical service for further management patient placed on BiPAP on arrival, he has refused intubation should it become necessary
[2019-05-30 20:25] LABS: BASO % 1.1 % (0-2.0); EOS % 6.6 % (0-4.5); HEMATOCRIT 31.8 % (35.4-49); HEMOGLOBIN 9.9 GM/dL (11.7-16.9); LYMPH % 9.7 % (8-40); MCH 24.2 pg (25.7-33.7); MCHC 31.1 g/dl (32.0-35.9); MEAN CELL VOLUME 77.6 fl (80-96); MEAN PLT VOLUME 9.4 fl (7.5-11.1); MONO % 11.7 % (3.8-10.2); NEUT % 70.9 % (42.8-82.8); PLATELET COUNT 167 K/MM3 (134-434); RDW 18.8 % (11.9-15.9); WHITE BLOOD COUNT 8.2 K/mm3 (4.0-10.0)
[2019-05-30] MEDS ORDERED: AZITHROMYCIN IVPB 500 MG in DEXTROSE 5%-WATER - 250 ML IVPB ONE (20:39)
[2019-05-30 20:45] LABS: ALBUMIN 3.4 g/dl (3.4-5.0); BILIRUBIN,TOTAL 0.3 mg/dL (0.2-1); CALCIUM 8.6 mg/dL (8.5-10.1); CREATININE 0.5 mg/dL (0.55-1.3); POTASSIUM 3.7 mmol/L (3.5-5.1); TOT PROT 6.1 g/dl (6.4-8.2)
[2019-05-30 20:54] LABS: ARTERIAL BLD GAS O2 SATURATION 99.5 % (95-98); ARTERIAL BLOOD GAS PCO2 43.8 mmHg (35-45); ARTERIAL BLOOD GAS PO2 199 mmHg (80-100); CARBOXYHEMOGLOBIN 1.1 % (0-2)
[2019-05-30 20:58] LABS: VENOUS PC02 54.1 mmHg (38-52); VENOUS PH 7.34 (7.31-7.41); VENOUS PO2 < 49 mmHg (28-48)
[2019-05-30] MEDS ORDERED: AZITHROMYCIN IVPB 500 MG/250 ML BAG IVPB ONE (21:10)
[2019-05-30] MEDS ORDERED: methylPREDNISolone NA SUCC 40 MG/1 ML VIAL IVPUSH SCH (22:30)
--- NOTE | 2019-05-30 22:38 | PN ---
Teaching Attending Note Name of Resident: Alyson Garza ATTENDING PHYSICIAN STATEMENT I saw and evaluated the patient. I reviewed the resident's note and discussed the case with the resident. I agree with the resident's findings and plan as documented. SUBJECTIVE: 73 [address] M from [facility] w a hx of COPD on 2L home o2, follows w/ Dr. Mo, CAD s/ p PCI with a cardiac stent, HTN, HLD, and GERD BIBA who presented w/ reps distress x1 day, denied chest pain, fevers, chills, sick contacts. Received epi injection by ems, in ER was placed on Bipap. OBJECTIVE: Last Vital Signs Temp Pulse Resp BP Pulse Ox 98 F 85 24 H 103/64 100 05/30/19 19:45 05/30/19 19:45 05/30/19 19:45 05/30/19 19:45 05/30/19 20:00 gen -frail, elderly, thin heent-at, nc neck supple cv-s1+s2+rrr chest clear b/l, diminished breath sounds abdomen- soft, nt , bs+ ext - no clubbing or cyanosis Abnormal Lab Results 05/30/19 05/30/19 05/30/19 20:10 20:10 20:10 Hgb 9.9 L Hct 31.8 L D MCV 77.6 L MCH 24.2 L MCHC 31.1 L RDW 18.8 H Monocytes % 11.7 H Eosinophils % 6.6 H ABG pO2 at Pt Temp ABG O2 Sat (Measured) POC VBG pCO2 54.1 H POC VBG pO2 < 49 H VBG O2 Sat (Dianna) 48.5 L VBG Base Excess 3.1 H Creatinine 0.5 L AST 8 L Alkaline Phosphatase 174 H B-Natriuretic Peptide 161.0 H Total Protein 6.1 L 05/30/19 20:25 Hgb Hct MCV MCH MCHC RDW Monocytes % Eosinophils % ABG pO2 at Pt Temp 199 H ABG O2 Sat (Measured) 99.5 H POC VBG pCO2 POC VBG pO2 VBG O2 Sat (Dianna) VBG Base Excess Creatinine AST Alkaline Phosphatase B-Natriuretic Peptide Total Protein cxr showed hyperinflated lungs, small heart, flat diaphragms , ekg showed - normal sinus rhythm, old septal infarct ASSESSMENT AND PLAN: COPD exacerbation - ABG performed and not retaining CO2. Patient was taken off biapap and was not in resp distress. He is not retaining CO2 at this time. Troponin negative and no chest pain so do not suspect acs at this time. -admit to med/surg -duonebs q6yhrs -methylprednisone q6 hrs -supplemental oxygen via nasal cannula -monitor vitals closely -azithromycin 250mg po for 5 days -noted to be on Breo and Advair- should verify with pharmacy which medication -albuterol neb prn -spiriva -montelukast -pulmonary consult #anemia - microcytic -FOBT -patient might benefit from outpatient colonoscopy #CAD -asa, simvastatin #DVT ppx -heparin sc -
--- NOTE | 2019-05-30 22:48 | HP ---
CHIEF COMPLAINT: Shortness of breath PCP: Dr. Covington HISTORY OF PRESENT ILLNESS: 73 y.o. M PMH COPD chronic bronchitis (w/ recent admission for COPD exacerbation discharged 04/23/19) on 2L home O2, HTN, HLD, pulm HTN, CAD s/p stent placement, seizure disorder, GERD BIBEMS from [facility] d/t respiratory distress. Patient presents with 2 days of increased white sputum production ( more than his normal amount of clear sputum ~1 cup per day); patient also endorses h/o 1 month URI symptoms predominantly with runny nose. Over the past 2 days he has been having increasing SOB. He says he has not had a cough, but has only been coughing to clear his sputum. No streaks of blood present in sputum. Pt was given flonase for his runny nose a month ago with some improvement. At baseline, pt is unable to ambulate much without getting SOB- says he does not get much exercise outside and stays within his long term. En route to the hospital patient was given 1g epi with no improvement (was thought to be having asthma attack). He was also placed on CPAP. Pt follows up regularly with Dr. Mo as outpatient. On ROS, denies CP, fevers/ chills, headaches, nausea, emesis, myalgias, urinary or bowel changes. ER course was notable for: (1) Duonebs, steroids w/ minimal improvement (2) ABG WNL (3) S/p 2 doses 500mg Azithromycin (4) CXR: no acute disease (5) S/p BIPAP; weaned to O2 NC w/ good response Recent Travel: none PAST MEDICAL HISTORY: as per HPI PAST SURGICAL HISTORY: Joint replacement, Stent Social History: Resident of [facility]. Has a nephew who helps out. Smoking: Denies Alcohol: Denies Drugs: Denies Allergies No Known Drug Allergies Allergy (Verified 05/30/19 19:53) HOME MEDICATIONS: Home Medications Medication Instructions Recorded Phenytoin Na Extended [Dilantin -] 100 mg PO BID 06/11/14 Montelukast Na [Singulair -] 10 mg PO HS #90 tablet 06/15/14 Simvastatin [Zocor -] 20 mg PO HS #90 06/15/14 Magnesium Oxide [Mag-Ox -] 400 mg PO BID tablet 09/06/18 Acetaminophen [Tylenol .Regular 650 mg PO Q8H 10/18/18 Strength -] Guaifenesin Dm [Robitussin Dm -] 10 ml PO Q4H PRN cup 10/25/18 Diltiazem Cd [Cardizem Cd -] 120 mg PO DAILY cap.cd.24h 01/11/19 Pantoprazole Suspension [Protonix 40 mg PO DAILY #20 packet 01/11/19 Packets For Oral Suspension -] Albuterol 0.083% Nebulizer Arlyn 1 amp NEB RQID PRN 04/17/19 [Ventolin 0.083% Nebulizer Soln -] Albuterol 2.5/Ipratropium 0.5 1 amp NEB RQID PRN 04/17/19 [Duoneb -] Acetaminophen [Tylenol .Regular 650 mg PO Q8H PRN tablet 04/23/19 Strength -] Azithromycin [Zithromax 250mg 500 mg PO DAILY #3 tablet 04/23/19 Tablets -] Docusate Sodium [Colace -] 100 mg PO BID PRN capsule 04/23/19 Osteo Bi-Flex Tablet 100 mg PO BID 04/23/19 predniSONE [Deltasone -] 40 mg PO DAILY #7 tablet 04/23/19 REVIEW OF SYSTEMS CONSTITUTIONAL: Absent: fever, chills, diaphoresis, generalized weakness, malaise, loss of appetite, weight change HEENT: Absent: rhinorrhea, nasal congestion, throat pain, throat swelling, difficulty swallowing, mouth swelling, ear pain, eye pain, visual changes CARDIOVASCULAR: Absent: chest pain, syncope, palpitations, irregular heart rate, lightheadedness , peripheral edema RESPIRATORY: Absent: cough, shortness of breath, dyspnea with exertion, orthopnea, wheezing, stridor, hemoptysis GASTROINTESTINAL: Absent: abdominal pain, abdominal distension, nausea, vomiting, diarrhea, constipation, melena, hematochezia GENITOURINARY: Absent: dysuria, frequency, urgency, hesitancy, hematuria, flank pain, genital pain MUSCULOSKELETAL: Absent: myalgia, arthralgia, joint swelling, back pain, neck pain SKIN: Absent: rash, itching, pallor HEMATOLOGIC/IMMUNOLOGIC: Absent: easy bleeding, easy bruising, lymphadenopathy, frequent infections ENDOCRINE: Absent: unexplained weight gain, unexplained weight loss, heat intolerance, cold intolerance NEUROLOGIC: Absent: headache, focal weakness or paresthesias, dizziness, unsteady gait, seizure, mental status changes, bladder or bowel incontinence PSYCHIATRIC: Absent: anxiety, depression, suicidal or homicidal ideation, hallucinations. PHYSICAL EXAMINATION Vital Signs - 24 hr 05/30/19 05/30/19 19:45 20:00 Temperature 98 F Pulse Rate 85 Respiratory 24 H Rate Blood Pressure 103/64 O2 Sat by Pulse 100 100 Oximetry (%) GENERAL: Cachectic elderly male lying in bed. AOx3. HEENT: MMM. Postnasal drip noted in oropharynx; no erythema of oropharynx. Mild tenderness to palpation of sinuses. Sclera clear. LUNGS: Fine crackles @ b/l lung bases; mild wheezing left lower lobe. On BIPAP. HEART: Regular rate and rhythm, normal S1 and S2 without murmurs ABDOMEN: Soft, nontender, not distended, normoactive bowel sounds. UPPER EXTREMITIES: 2+ pulses, warm, well-perfused. No cyanosis. No clubbing. No peripheral edema. LOWER EXTREMITIES: 2+ pulses, warm, well-perfused. No calf tenderness. No peripheral edema. PSYCHIATRIC: Appropriate mood and affect. SKIN: Dry skin b/l UE. No lesions/ ulcerations/ rashes observed. Laboratory Results - last 24 hr 05/30/19 05/30/19 05/30/19 20:10 20:10 20:10 WBC 8.2 RBC 4.10 Hgb 9.9 L Hct 31.8 L D MCV 77.6 L MCH 24.2 L MCHC 31.1 L RDW 18.8 H Plt Count 167 MPV 9.4 Absolute Neuts (auto) 5.8 Neutrophils % 70.9 Lymphocytes % 9.7 Monocytes % 11.7 H Eosinophils % 6.6 H Basophils % 1.1 Nucleated RBC % 0 Anticoagulation Therapy Puncture Site ABG pH ABG pCO2 at Pt Temp ABG pO2 at Pt Temp ABG HCO3 ABG O2 Sat (Measured) ABG O2 Content ABG Base Excess Gilberto Test VBG pH POC VBG pCO2 POC VBG pO2 VBG HCO3 VBG O2 Sat (Dianna) VBG Base Excess Carboxyhemoglobin Methemoglobin O2 Delivery Device Oxygen Flow Rate Vent Mode Vent Rate Mechanical Rate Pressure Support Vent Sodium 140 Potassium 3.7 Chloride 104 Carbon Dioxide 28 Anion Gap 9 BUN 12.0 Creatinine 0.5 L Est GFR (CKD-EPI)AfAm 123.73 Est GFR (CKD-EPI)NonAf 106.75 Random Glucose 91 Calcium 8.6 Total Bilirubin 0.3 AST 8 L ALT 13 Alkaline Phosphatase 174 H Troponin I < 0.02 B-Natriuretic Peptide 161.0 H Total Protein 6.1 L Albumin 3.4 05/30/19 05/30/19 20:10 20:25 WBC RBC Hgb Hct MCV MCH MCHC RDW Plt Count MPV Absolute Neuts (auto) Neutrophils % Lymphocytes % Monocytes % Eosinophils % Basophils % Nucleated RBC % Anticoagulation Therapy No Result Required. Puncture Site No Result Required. ABG pH 7.40 ABG pCO2 at Pt Temp 43.8 ABG pO2 at Pt Temp 199 H ABG HCO3 26.6 ABG O2 Sat (Measured) 99.5 H ABG O2 Content 17.8 ABG Base Excess 2.0 Gilberto Test No Result Required. VBG pH 7.34 POC VBG pCO2 54.1 H POC VBG pO2 < 49 H VBG HCO3 29 VBG O2 Sat (Dianna) 48.5 L VBG Base Excess 3.1 H Carboxyhemoglobin 1.1 Methemoglobin < 1.0 O2 Delivery Device No Result Required. Oxygen Flow Rate No Result Required. Vent Mode No Result Required. Vent Rate No Result Required. Mechanical Rate No Result Required. Pressure Support Vent No Result Required. Sodium Potassium Chloride Carbon Dioxide Anion Gap BUN Creatinine Est GFR (CKD-EPI)AfAm Est GFR (CKD-EPI)NonAf Random Glucose Calcium Total Bilirubin AST ALT Alkaline Phosphatase Troponin I B-Natriuretic Peptide Total Protein Albumin ASSESSMENT/PLAN: 73 y.o. PMH COPD chronic bronchitis (w/ recent admission for COPD exacerbation discharged 04/23/19) on 2L home O2, HTN, HLD, pulm HTN, CAD, seizure disorder, GERD presenting with SOB x 2 days found to have acute COPD exacerbation #COPD acute bronchitis exacerbation -C/w inhaled bronchodilators q6h -Solumedrol 40mg IV BID -Albuterol neb PRN -Montelukast 10mg PO daily -C/w empiric abx; azithromycin 250mg PO x 5 days -S/p BIPAP; now on NC satting well -CXR: moderately severe COPD, no acute disease -ABG WNL -Dr. Mo (pulm) consulted -Med rec: Joyce Man, nicolasa w/ pharmacy -Outpatient pulmonary rehab #Microcytic anemia -FOBT ordered -F/u outpatient for colonoscopy #Isolated alk phos -F/u RUQ U/s #CAD -C/w aspirin 81mg daily #HTN -C/w diltiazem 120mg daily -Monitor vitals #HLD -C/w simvastatin 20mg daily #Seizure d/o -C/w dilantin 100mg PO BID #GERD -Protonix 40mg PO daily #DVT PPX -Heparin 5000 SQ TID #FEN -No standing fluids -Monitor lytes -Sodium controlled diet -recommend DEXA scan outpatient d/t thin stature and likely osteo seen on XR #Dispo Admit to med surg Visit type - Emergency Visit Emergency Visit: Yes ED Registration Date: 05/30/19 Care time: The patient presented to the Emergency Department on the above date and was hospitalized for further evaluation of their emergent condition. - New Patient This patient is new to me today: Yes Date on this admission: 05/31/19 - Critical Care Critical Care patient: No ATTENDING PHYSICIAN STATEMENT I saw and evaluated the patient. I reviewed the resident's note and discussed the case with the resident. I agree with the resident's findings and plan as documented. SUBJECTIVE: OBJECTIVE: ASSESSMENT AND PLAN:
[2019-05-31] MEDS ORDERED: methylPREDNISolone NA SUCC 40 MG/1 ML VIAL ONE (00:20)
[2019-05-31] MEDS ORDERED: methylPREDNISolone NA SUCC 40 MG/1 ML VIAL IVPUSH SCH ×3 (02:00→10:00)
[2019-05-31] MEDS ORDERED: PANTOPRAZOLE 40 MG TABLET (FP) ONE (06:27)
[2019-05-31] MEDS: PANTOPRAZOLE 40 MG TABLET (FP) PO SCH (06:30)
[2019-05-31] MEDS: HEPARIN NA (PORCINE) 5,000 UNITS/ML 1ML VIAL SQ SCH ×3 (06:45→22:22)
[2019-05-31 06:58] LABS: HEMOGLOBIN 10.7 GM/dL (11.7-16.9); MCH 24.3 pg (25.7-33.7); MCHC 31.5 g/dl (32.0-35.9); MEAN CELL VOLUME 77.2 fl (80-96); MEAN PLT VOLUME 9.7 fl (7.5-11.1); PLATELET COUNT 177 K/MM3 (134-434); RDW 18.4 % (11.9-15.9); WHITE BLOOD COUNT 3.9 K/mm3 (4.0-10.0)
[2019-05-31 07:22] LABS: ALBUMIN 3.4 g/dl (3.4-5.0); BILIRUBIN,TOTAL 0.4 mg/dL (0.2-1); BLOOD UREA NITROGEN 11.3 mg/dL (7-18); CALCIUM 8.8 mg/dL (8.5-10.1); CREATININE 0.4 mg/dL (0.55-1.3); PHOSPHOROUS 3.7 mg/dL (2.5-4.9); POTASSIUM 4.4 mmol/L (3.5-5.1); TOT PROT 6.5 g/dl (6.4-8.2)
[2019-05-31] MEDS ORDERED: ALBUTEROL SO4 2.5/IPRATROPIUM 0.5 INH SOL 3 ML VIAL.NEB. NEB SCH ×3 (08:00→16:00)
[2019-05-31] MEDS ORDERED: AZITHROMYCIN IVPB 500 MG/250 ML BAG IVPB ONE (09:57)
[2019-05-31] MEDS ORDERED: TIOTROPIUM BROMIDE 2.5 MCG (SPIRIVA) RESPIMAT INHALER IH SCH (10:00)
[2019-05-31] MEDS ORDERED: PATIENT'S OWN MEDICATION (NON-FORMULARY) (Esomeprazole Magnesium [Nexium 24hr] 40 MG) PO SCH (10:00)
[2019-05-31] MEDS ORDERED: PATIENT'S OWN MEDICATION (NON-FORMULARY) (Tiotropium Bromide [Spiriva] 18 MCG) IH SCH (10:00)
[2019-05-31] MEDS ORDERED: ENOXAPARIN NA (PORCINE) 40 MG/0.4 ML DISP.SYRIN SQ SCH (10:00)
[2019-05-31] MEDS ORDERED: AZITHROMYCIN IVPB 500 MG in DEXTROSE 5%-WATER - 250 ML IVPB SCH (10:00)
[2019-05-31] MEDS: PHENYTOIN NA EXTENDED 100 MG CAPSULE (FP) PO SCH ×2 (10:38→23:11)
[2019-05-31] MEDS: ASPIRIN 81 MG CHEWABLE TABLETS PO SCH (10:38)
--- NOTE | 2019-05-31 10:58 | EKG ---
Test Reason : Blood Pressure : / mmHG Vent. Rate : 078 BPM Atrial Rate : 078 BPM P-R Int : 194 ms QRS Dur : 118 ms QT Int : 430 ms P-R-T Axes : 083 -78 088 degrees QTc Int : 490 ms POOR DATA QUALITY, INTERPRETATION MAY BE ADVERSELY AFFECTED NORMAL SINUS RHYTHM LEFT ANTERIOR FASCICULAR BLOCK ANTEROSEPTAL INFARCT (CITED ON OR BEFORE 29-OCT-2007) ABNORMAL ECG WHEN COMPARED WITH ECG OF 17-APR-2019 07:29, PREMATURE VENTRICULAR COMPLEXES ARE NO LONGER PRESENT Confirmed by Guy Galeas ([id number]) on 05/31/2019 10:58:10 AM Referred By: Confirmed By:Guy Galeas
[2019-05-31] MEDS: BUDESONIDE/FORMETEROL FUMARATE 160/4.5 mcg INHALER IH SCH ×2 (11:56→22:23)
--- NOTE | 2019-05-31 12:35 | PN ---
Teaching Attending Note Name of Resident: Rose Marie Kim ATTENDING PHYSICIAN STATEMENT I saw and evaluated the patient. I reviewed the resident's note and discussed the case with the resident. I agree with the resident's findings and plan as documented. PULMONARY IMP DYSPNEA END STAGE COPD 2 DEPENDENT WITH ACUTE EXACERBATION CHRONIC HYPOXEMIC RESPIRATORY FAILURE H/O DVT/PE PULMONARY HTN ASHD S/P STENT H/O SEIZURE HTN HLD PLAN MEDROL INHALED BRONCHODILATORS O2 ZITHROMAX 250 TIW CONSIDER CARISSA LOPEZ Problem List - Problems (1) Chronic hypoxemic respiratory failure Code(s): J96.11 - CHRONIC RESPIRATORY FAILURE WITH HYPOXIA (2) Anemia Code(s): D64.9 - ANEMIA, UNSPECIFIED Qualifiers: Anemia type: unspecified type Qualified Code(s): D64.9 - Anemia, unspecified (3) Cachexia Code(s): R64 - CACHEXIA (4) URI (upper respiratory infection) Code(s): J06.9 - ACUTE UPPER RESPIRATORY INFECTION, UNSPECIFIED Qualifiers: URI type: unspecified URI Qualified Code(s): J06.9 - Acute upper respiratory infection, unspecified (5) CAD (coronary artery disease) Code(s): I25.10 - ATHSCL HEART DISEASE OF [place] CORONARY ARTERY W/O ANG PCTRS (6) CVA (cerebral vascular accident) Code(s): I63.9 - CEREBRAL INFARCTION, UNSPECIFIED (7) Cachexia Code(s): R64 - CACHEXIA (8) HLD (hyperlipidemia) Code(s): E78.5 - HYPERLIPIDEMIA, UNSPECIFIED (9) HTN (hypertension) Code(s): I10 - ESSENTIAL (PRIMARY) HYPERTENSION (10) Pulmonary hypertension Code(s): I27.2 - OTHER SECONDARY PULMONARY HYPERTENSION * DO NOT USE * (11) Respiratory distress Code(s): R06.00 - DYSPNEA, UNSPECIFIED (12) Severe malnutrition Code(s): E43 - UNSPECIFIED SEVERE PROTEIN-CALORIE MALNUTRITION (13) Seizure disorder Code(s): G40.909 - EPILEPSY, UNSP, NOT INTRACTABLE, WITHOUT STATUS EPILEPTICUS
--- NOTE | 2019-05-31 14:10 | PN ---
Teaching Attending Note Name of Resident: Matt Mancuso ATTENDING PHYSICIAN STATEMENT I saw and evaluated the patient. I reviewed the resident's note and discussed the case with the resident. I agree with the resident's findings and plan as documented. SUBJECTIVE: No fever or chills. nO BARRIENTOS. SOB has improved . reports problems with out pt f/u with pulm and VNS due to insurance issues. out pt portable O2 was not arranged OBJECTIVE: NAD Cv: RRR Lungs: CTAB , good air entry,no wheezing. Ext: No edema , no fungal infection . declined Abd exam. ASSESSMENT AND PLAN: 73 y/o man with h/o COPD, on 2 L of O2 at home, CAD, s/p PCI and stents, HTN, seizures, HLP, and GERD who presented with SOB . He was found to have acute COPD exacerbation. 1- Acute COPD exacerbation: - cont steroids - dc spiriva while on Duo-Nebs - cont Symbicort - d/w SW regarding his Home O2 supplies - send flu swab 2- Ho seizures, CAD, and other chroic conditions: cont meds DVT PX : heparin PT eval
--- NOTE | 2019-05-31 14:14 | PN ---
Physical Exam: SUBJECTIVE: Patient seen and examined at the bedside, patient is agitated that so many people are coming to see him and refusing to participate in the exam. OBJECTIVE: Vital Signs Period Temp Pulse Resp BP Sys/Fernández Pulse Ox Last 24 Hr 98 F 70-85 20-24 103-124/64-70 98-100 Exam limited because patient is refusing to participate fully GENERAL: Cachectic elderly male lying in bed. AOx3. HEENT: Dry mucous membranes. EOMI intact, PERRL LUNGS: on 3LNC, lungs sound clear to ascultation bilaterally, no accessory muscle use HEART: Regular rate and rhythm, normal S1 and S2 without murmurs ABDOMEN: Soft, nontender, not distended UPPER EXTREMITIES: 2+ pulses, warm, well-perfused. No peripheral edema. LOWER EXTREMITIES: 2+ pulses, warm, well-perfused. No peripheral edema. PSYCHIATRIC: Appropriate mood and affect. SKIN: Dry skin b/l UE and LE. R knee has healing scab Laboratory Results - last 24 hr 05/30/19 05/30/19 05/30/19 20:10 20:10 20:10 WBC 8.2 RBC 4.10 Hgb 9.9 L Hct 31.8 L D MCV 77.6 L MCH 24.2 L MCHC 31.1 L RDW 18.8 H Plt Count 167 MPV 9.4 Absolute Neuts (auto) 5.8 Neutrophils % 70.9 Lymphocytes % 9.7 Monocytes % 11.7 H Eosinophils % 6.6 H Basophils % 1.1 Nucleated RBC % 0 Anticoagulation Therapy Puncture Site ABG pH ABG pCO2 at Pt Temp ABG pO2 at Pt Temp ABG HCO3 ABG O2 Sat (Measured) ABG O2 Content ABG Base Excess Gilberto Test VBG pH POC VBG pCO2 POC VBG pO2 VBG HCO3 VBG O2 Sat (Dianna) VBG Base Excess Carboxyhemoglobin Methemoglobin O2 Delivery Device Oxygen Flow Rate Vent Mode Vent Rate Mechanical Rate Pressure Support Vent Sodium 140 Potassium 3.7 Chloride 104 Carbon Dioxide 28 Anion Gap 9 BUN 12.0 Creatinine 0.5 L Est GFR (CKD-EPI)AfAm 123.73 Est GFR (CKD-EPI)NonAf 106.75 Random Glucose 91 Calcium 8.6 Phosphorus Magnesium Total Bilirubin 0.3 AST 8 L ALT 13 Alkaline Phosphatase 174 H Troponin I < 0.02 B-Natriuretic Peptide 161.0 H Total Protein 6.1 L Albumin 3.4 05/30/19 05/30/19 05/31/19 20:10 20:25 05:30 WBC 3.9 L RBC 4.40 Hgb 10.7 L Hct 34.0 L MCV 77.2 L MCH 24.3 L MCHC 31.5 L RDW 18.4 H Plt Count 177 MPV 9.7 Absolute Neuts (auto) Neutrophils % Lymphocytes % Monocytes % Eosinophils % Basophils % Nucleated RBC % Anticoagulation Therapy No Result Required. Puncture Site No Result Required. ABG pH 7.40 ABG pCO2 at Pt Temp 43.8 ABG pO2 at Pt Temp 199 H ABG HCO3 26.6 ABG O2 Sat (Measured) 99.5 H ABG O2 Content 17.8 ABG Base Excess 2.0 Gilberto Test No Result Required. VBG pH 7.34 POC VBG pCO2 54.1 H POC VBG pO2 < 49 H VBG HCO3 29 VBG O2 Sat (Dianna) 48.5 L VBG Base Excess 3.1 H Carboxyhemoglobin 1.1 Methemoglobin < 1.0 O2 Delivery Device No Result Required. Oxygen Flow Rate No Result Required. Vent Mode No Result Required. Vent Rate No Result Required. Mechanical Rate No Result Required. Pressure Support Vent No Result Required. Sodium Potassium Chloride Carbon Dioxide Anion Gap BUN Creatinine Est GFR (CKD-EPI)AfAm Est GFR (CKD-EPI)NonAf Random Glucose Calcium Phosphorus Magnesium Total Bilirubin AST ALT Alkaline Phosphatase Troponin I B-Natriuretic Peptide Total Protein Albumin 05/31/19 06:00 WBC RBC Hgb Hct MCV MCH MCHC RDW Plt Count MPV Absolute Neuts (auto) Neutrophils % Lymphocytes % Monocytes % Eosinophils % Basophils % Nucleated RBC % Anticoagulation Therapy Puncture Site ABG pH ABG pCO2 at Pt Temp ABG pO2 at Pt Temp ABG HCO3 ABG O2 Sat (Measured) ABG O2 Content ABG Base Excess Gilberto Test VBG pH POC VBG pCO2 POC VBG pO2 VBG HCO3 VBG O2 Sat (Dianna) VBG Base Excess Carboxyhemoglobin Methemoglobin O2 Delivery Device Oxygen Flow Rate Vent Mode Vent Rate Mechanical Rate Pressure Support Vent Sodium 138 Potassium 4.4 Chloride 100 Carbon Dioxide 28 Anion Gap 10 BUN 11.3 Creatinine 0.4 L Est GFR (CKD-EPI)AfAm 135.61 Est GFR (CKD-EPI)NonAf 117.01 Random Glucose 107 H Calcium 8.8 Phosphorus 3.7 Magnesium 2.0 Total Bilirubin 0.4 AST 7 L ALT 12 L Alkaline Phosphatase 195 H Troponin I B-Natriuretic Peptide Total Protein 6.5 Albumin 3.4 Active Medications Generic Name Dose Route Start Last Admin Trade Name Freq PRN Reason Stop Dose Admin Aspirin 81 mg 05/31/19 10:00 05/31/19 10:38 Asa - PO 81 mg DAILY E[facility] Administration Atorvastatin Calcium 10 mg 05/31/19 22:00 Lipitor - PO HS E[facility]ICE Budesonide/Formoterol Fumarate 1 puff 05/31/19 10:00 05/31/19 11:56 Symbicort 160/4.5mcg - IH Not Given BID E[facility]ICE Diltiazem HCl 120 mg 05/31/19 10:00 05/31/19 10:38 Cardizem Cd - PO 120 mg DAILY [facility] Administration Heparin Sodium (Porcine) 5,000 unit 05/31/19 06:00 05/31/19 06:45 Heparin - SQ Not Given TID E[facility] Azithromycin 500 mg/ Dextrose 250 mls @ 250 mls/hr 05/31/19 10:00 05/31/19 10 :38 IVPB 250 mls/hr DAILY [facility] Administration Methylprednisolone Sodium Succinate 40 mg 05/31/19 18:00 Solu-Medrol - IVPUSH Q8H-IV E[facility] Montelukast Sodium 10 mg 05/31/19 22:00 Singulair - PO HS E[facility] Pantoprazole Sodium 40 mg 05/31/19 07:00 05/31/19 06:30 Protonix - PO 40 mg ACBK [facility] Administration Phenytoin Sodium 100 mg 05/31/19 10:00 05/31/19 10:38 Dilantin - PO 100 mg BID EUN[facility] Administration Tiotropium [place] 2 puff 05/31/19 10:00 05/31/19 11:56 Spiriva Respimat IH Not Given DAILY [facility] -CXR: moderately severe COPD, no acute disease -ABG WNL ASSESSMENT/PLAN: 73 y.o. PMH COPD chronic bronchitis (w/ recent admission for COPD exacerbation discharged 04/23/19) on 2L home O2, HTN, HLD, pulm HTN, CAD, seizure disorder, GERD presenting with SOB x 2 days found to have acute COPD exacerbation #COPD acute bronchitis exacerbation - Pulmonology, Dr. Mo, evaluated patient, appreciate recommendations - continue ventolin inhaler - continue singulair - continue Spiriva - DC duonebs - continue symbicort - continue azithromycin TIW - increase solumed to 40IV Q8H to manage inflammation, titrate down as needed - continue O2NC prn - Per pulm, pt maybe a candidate for daliresp as outpt #Microcytic anemia -F/u FOBT -F/u outpatient for colonoscopy #Isolated alk phos -F/u RUQ U/s > showing mild fatty infiltrate, no acute process #CAD -C/w aspirin 81mg daily #HTN -C/w diltiazem 120mg daily -Monitor vitals #HLD -C/w simvastatin 20mg daily #Seizure d/o -C/w dilantin 100mg PO BID #DVT PPX -Heparin 5000 SQ TID -Protonix 40mg PO daily #FEN -No standing fluids -Monitor lytes -Sodium controlled diet -recommend DEXA scan outpatient d/t thin stature and likely osteo seen on XR #Dispo- likely to be discharged in the following day or two Visit type - Emergency Visit Emergency Visit: Yes ED Registration Date: 05/30/19 Care time: The patient presented to the Emergency Department on the above date and was hospitalized for further evaluation of their emergent condition. - New Patient This patient is new to me today: Yes Date on this admission: 05/31/19 - Critical Care Critical Care patient: No - Discharge Referral Referred to [facility] Med [facility] No ATTENDING PHYSICIAN STATEMENT I saw and evaluated the patient. I reviewed the resident's note and discussed the case with the resident. I agree with the resident's findings and plan as documented. SUBJECTIVE: OBJECTIVE: ASSESSMENT AND PLAN:
--- NOTE | 2019-05-31 15:13 | CONSULT ---
Consult Consult Specialty:: Pulmonology Referred by:: Dr Victoria Reason for Consultation:: COPD exacerbation - History of Present Illness Chief Complaint: SOB History of Present Illness: Pt is a 73 yo M with PMHx of COPD- chronic bronchitis -2L O2, HTN, HLD, PH, CAD s/p stent, seizure disorder, GERD, presenting from home with hx of worsening SOB and increased sputum production. Pt reports being compliant on home o2 with recent recent admissions January and april for COPD exacerbation. Last admission noted to be following URI. Pt denies fever, bloody sputum or chest pain. Per pt he wants to be set up for portable oxygen in addition to his home oxygen, reports being able to ambulate with assistance. Pt was initially placed on bipap then transitioned to NC. VBG-7.34/54.1/<49/29 abg-7.4/43.8/199/26.6 WBC-3.9, trop <0.02 - History Source History Provided By: Patient, Medical Record Limitations to Obtaining History: Poor Historian - Past Medical History COIL CONNECTOR: Yes: Seizure Cardio/Vascular: Yes: CAD (s/p PCI with cardiac stent), HTN, Hyperlipdemia Pulmonary: Yes: COPD, O2 Dependent, Pneumonia Gastrointestinal: Yes: GERD - Past Surgical History Past Surgical History: Yes: Joint Replacement - Alcohol/Substance Use Hx Alcohol Use: No - Smoking History Smoking history: Former smoker Have you smoked in the past 12 months: No Aproximately how many cigarettes per day: 0 If you are a former smoker, when did you quit?: 14 years - Social History Usual Living Arrangement: With Child History of Recent Travel: No Home Medications - Allergies Allergies/Adverse Reactions: Allergies Allergy/AdvReac Type Severity Reaction Status Date / Time No Known Drug Allergies Allergy Verified 05/30/19 19:53 - Home Medications Home Medications: Ambulatory Orders Phenytoin Na Extended [Dilantin -] 100 mg PO BID 06/11/14 Montelukast Na [Singulair -] 10 mg PO HS #90 tablet 06/15/14 Simvastatin [Zocor -] 20 mg PO HS #90 06/15/14 Guaifenesin Dm [Robitussin Dm -] 10 ml PO Q4H PRN cup 10/25/18 Diltiazem Cd [Cardizem Cd -] 120 mg PO DAILY cap.cd.24h 01/11/19 Albuterol 0.083% Nebulizer Arlyn [Ventolin 0.083% Nebulizer Soln -] 1 amp NEB RQID PRN 04/17/19 Albuterol 2.5/Ipratropium 0.5 [Duoneb -] 1 amp NEB RQID PRN 04/17/19 Acetaminophen [Tylenol .Regular Strength -] 650 mg PO Q8H PRN tablet 04/23/19 Aspirin 81 mg PO DAILY 05/30/19 Esomeprazole Magnesium [Nexium 24Hr] 40 mg PO DAILY 05/30/19 Fexofenadine/Pseudoephedrine [Kalpana-D 12 Hour Tablet] 1 each PO BID PRN Fluticasone Propionate [Flovent Diskus] 250 mcg IH Q12H 05/30/19 Fluticasone/Salmeterol [Advair 250-50 Diskus] 1 each IH DAILY 05/30/19 Fluticasone/Vilanterol [Breo Ellipta 100-25 Mcg INH] 62.5 mcg IH 05/30/19 Levalbuterol Tartrate [Xopenex Hfa] 15 gm IH DAILY 05/30/19 Mometasone Furoate 50 mcg NS 05/30/19 Tiotropium [place] [Spiriva] 18 mcg IH DAILY 05/30/19 Review of Systems - Review of Systems Constitutional: denies: Chills, Diaphoresis HENT: denies: Nasal Congestion Cardiovascular: denies: Chest Pain, Edema Respiratory: reports: SOB, SOB on Exertion. denies: Hemoptysis Gastrointestinal: denies: Abdominal Pain Genitourinary: denies: Burning, Dysuria Neurological: denies: Change in LOC, Confusion, Pre-Existing Deficit Physical Exam Vital Signs: Vital Signs Temperature 97.8 F 05/31/19 14:35 Pulse Rate 74 05/31/19 14:35 Respiratory Rate 18 05/31/19 14:35 Blood Pressure 103/60 05/31/19 14:35 O2 Sat by Pulse Oximetry (%) 97 05/31/19 14:35 Constitutional: Yes: Cachectic Eyes: Yes: PERRL. No: Sclera Icterus HENT: No: Drooling, Epistaxis Neck: Yes: Supple Cardiovascular: Yes: Regular Rate and Rhythm, S1, S2 Respiratory: Yes: Diminished Gastrointestinal: Yes: Hypoactive Bowel Sounds, Other (scaphoid abdomen) Musculoskeletal: No: Joint Swelling Edema: No Neurological: Yes: Alert, Oriented. No: Confusion, Facial Droop Psychiatric: Yes: Alert, Oriented Labs: CBC, BMP 05/31/19 05:30 05/31/19 06:00 Imaging - Results Chest X-ray: Report Reviewed (Severe COPD, no acute disease), Image Reviewed Cat Scan: Report Reviewed (CT scan-12/23- Moderate - severe COPD with fibrosis and bullae), Image Reviewed Assessment/Plan Current Medications Aspirin (Asa -) 81 mg PO DAILY [facility] Last Admin: 05/31/19 10:38 Dose: 81 mg Atorvastatin Calcium (Lipitor -) 10 mg PO HS [facility] Budesonide/Formoterol Fumarate (Symbicort 160/4.5mcg -) 1 puff IH BID [facility] Last Admin: 05/31/19 11:56 Dose: Not Given Diltiazem HCl (Cardizem Cd -) 120 mg PO DAILY [facility] Last Admin: 05/31/19 10:38 Dose: 120 mg Heparin Sodium (Porcine) (Heparin -) 5,000 unit SQ TID [facility] Last Admin: 05/31/19 14:34 Dose: 5,000 unit Azithromycin 250 mg/ Dextrose 250 mls @ 250 mls/hr IVPB DAILY [facility] Methylprednisolone Sodium Succinate (Solu-Medrol -) 40 mg IVPUSH Q8H-IV [facility] Montelukast Sodium (Singulair -) 10 mg PO HS [facility] Pantoprazole Sodium (Protonix -) 40 mg PO ACBK [facility] Last Admin: 05/31/19 06:30 Dose: 40 mg Phenytoin Sodium (Dilantin -) 100 mg PO BID [facility] Last Admin: 05/31/19 10:38 Dose: 100 mg Tiotropium [place] (Spiriva Respimat) 2 puff IH DAILY [facility] Last Admin: 05/31/19 11:56 Dose: Not Given Assessment/Plan: Pt is a 73 yo M with PMHx of COPD- chronic bronchitis -2L O2, HTN, HLD, PH, CAD s/p stent, seizure disorder, GERD, presenting from home with hx of worsening SOB and increased sputum production. COPD- chronic bronchitis -2L O2, HTN, HLD, PH, CAD s/p stent, seizure disorder, GERD COPD exacerbation Acute on chronic hypercapnic, hypoxic respiratory failure leukopenia Plan: COPD GOLD class D- pt with more than 2 exacerbations this year, on chronic home oxygen Cont ventolin inhaler dc duonebs Cont spiriva Cont symbicort Cont azithromycin Will increase solumed to 40iv Q8H to manage inflammation and titrate down as needed Cont singulair DVT prophylaxis Cont GI prophylaxis Other mx per primary team Cont supplemental oxygen Pt maybe a candidate for daliresp as outpt D/W Dr Chely Kim PGY 3 Visit type - Emergency Visit Emergency Visit: Yes ED Registration Date: 05/30/19 Care time: The patient presented to the Emergency Department on the above date and was hospitalized for further evaluation of their emergent condition. - New Patient This patient is new to me today: Yes Date on this admission: 05/31/19 - Critical Care Critical Care patient: No ATTENDING PHYSICIAN STATEMENT I saw and evaluated the patient. I reviewed the resident's note and discussed the case with the resident. I agree with the resident's findings and plan as documented. SUBJECTIVE: OBJECTIVE: ASSESSMENT AND PLAN:
[2019-05-31] MEDS ORDERED: ALBUTEROL SO4 2.5/IPRATROPIUM 0.5 INH SOL 3 ML VIAL.NEB. NEB PRN (15:59)
[2019-05-31] MEDS ORDERED: ALBUTEROL SO4 2.5/IPRATROPIUM 0.5 INH SOL 3 ML VIAL.NEB. NEB ONE (16:37)
[2019-05-31] MEDS: methylPREDNISolone NA SUCC 40 MG/1 ML VIAL IVPUSH SCH (18:19)
[2019-05-31] MEDS ORDERED: PATIENT'S OWN MEDICATION (NON-FORMULARY) (Simvastatin 20 MG) PO SCH (22:00)
[2019-05-31] MEDS: MONTELUKAST NA 10 MG TABLET PO SCH (22:23)
[2019-05-31] MEDS: ATORVASTATIN CA 10 MG TABLET (FP) PO SCH (22:23)
[2019-05-31] MEDS ORDERED: PT OWN MED DRAWER 7, Y5N ONE (22:52)
[2019-06-01] MEDS: methylPREDNISolone NA SUCC 40 MG/1 ML VIAL IVPUSH SCH ×5 (01:50→17:41)
[2019-06-01] MEDS: PANTOPRAZOLE 40 MG TABLET (FP) PO SCH (07:10)
[2019-06-01] MEDS: HEPARIN NA (PORCINE) 5,000 UNITS/ML 1ML VIAL SQ SCH ×3 (07:11→22:15)
[2019-06-01 08:31] LABS: HEMATOCRIT 34.4 % (35.4-49); MCH 24.5 pg (25.7-33.7); MEAN CELL VOLUME 76.5 fl (80-96); MEAN PLT VOLUME 9.5 fl (7.5-11.1); PLATELET COUNT 198 K/MM3 (134-434); RBC 4.49 M/mm3 (4.00-5.60); RDW 18.1 % (11.9-15.9); WHITE BLOOD COUNT 5.5 K/mm3 (4.0-10.0)
--- NOTE | 2019-06-01 08:38 | PN ---
Teaching Attending Note Name of Resident: Valeria Cheng ATTENDING PHYSICIAN STATEMENT I saw and evaluated the patient. I reviewed the resident's note and discussed the case with the resident. I agree with the resident's findings and plan as documented. SUBJECTIVE: Patient is feeling better , no complains. OBJECTIVE: Vital Signs Temperature 97.4 F L 06/01/19 05:45 Pulse Rate 65 06/01/19 05:45 Respiratory Rate 18 06/01/19 05:45 Blood Pressure 123/66 06/01/19 05:45 O2 Sat by Pulse Oximetry (%) 98 05/31/19 21:00 GENERAL: The patient is awake, alert, and oriented, cachectic, in no acute distress. HEAD: Normal with no signs of trauma. EYES: PERRL, extraocular movements intact, sclera anicteric, conjunctiva clear. ENT: Ears normal, oropharynx clear without exudates, moist mucous membranes. NECK: Trachea midline, full range of motion, supple. LUNGS: decreased Breath sounds bl, on home oxygen , no wheezes, no crackles, no accessory muscle use. HEART: Regular rate and rhythm, S1, S2 without murmur, rub or gallop. ABDOMEN: Soft, NT,ND, normoactive bowel sounds, no guarding, no rebound, no hepatosplenomegaly, no masses. EXTREMITIES: 2+ pulses, warm, well-perfused, no edema. NEUROLOGICAL: Cranial nerves II through XII grossly intact. Normal speech, gait not observed. PSYCH: Normal mood, normal affect. SKIN: Warm, dry, normal turgor, no rashes or lesions noted CBCD WBC 3.9 K/mm3 (4.0-10.0) L 05/31/19 05:30 RBC 4.40 M/mm3 (4.00-5.60) 05/31/19 05:30 Hgb 10.7 GM/dL (11.7-16.9) L 05/31/19 05:30 Hct 34.0 % (35.4-49) L 05/31/19 05:30 MCV 77.2 fl (80-96) L 05/31/19 05:30 MCHC 31.5 g/dl (32.0-35.9) L 05/31/19 05:30 RDW 18.4 % (11.9-15.9) H 05/31/19 05:30 Plt Count 177 K/MM3 (134-434) 05/31/19 05:30 MPV 9.7 fl (7.5-11.1) 05/31/19 05:30 CMP Sodium 138 mmol/L (136-145) 05/31/19 06:00 Potassium 4.4 mmol/L (3.5-5.1) 05/31/19 06:00 Chloride 100 mmol/L (98-107) 05/31/19 06:00 Carbon Dioxide 28 mmol/L (21-32) 05/31/19 06:00 Anion Gap 10 MMOL/L (8-16) 05/31/19 06:00 BUN 11.3 mg/dL (7-18) 05/31/19 06:00 Creatinine 0.4 mg/dL (0.55-1.3) L 05/31/19 06:00 Random Glucose 107 mg/dL (74-106) H 05/31/19 06:00 Calcium 8.8 mg/dL (8.5-10.1) 05/31/19 06:00 Total Bilirubin 0.4 mg/dL (0.2-1) 05/31/19 06:00 AST 7 U/L (15-37) L 05/31/19 06:00 ALT 12 U/L (13-61) L 05/31/19 06:00 Alkaline Phosphatase 195 U/L (45-117) H 05/31/19 06:00 Total Protein 6.5 g/dl (6.4-8.2) 05/31/19 06:00 Albumin 3.4 g/dl (3.4-5.0) 05/31/19 06:00 CARDIAC ENZYMES Troponin I < 0.02 ng/ml (0.00-0.05) 05/30/19 20:10 Current Medications Generic Name Dose Route Start Last Admin Trade Name Freq PRN Reason Stop Dose Admin Albuterol Sulfate 1 amp 05/31/19 16:32 Ventolin 0.083% Nebulizer Soln - NEB Q6H PRN SHORT OF BREATH/WHEEZING Aspirin 81 mg 05/31/19 10:00 05/31/19 10:38 Asa - PO 81 mg DAILY [facility] Administration Atorvastatin Calcium 10 mg 05/31/19 22:00 05/31/19 22:23 Lipitor - PO 10 mg HS [facility] Administration Budesonide/Formoterol Fumarate 1 puff 05/31/19 10:00 05/31/19 22:23 Symbicort 160/4.5mcg - IH 1 puff BID [facility] Administration Diltiazem HCl 120 mg 05/31/19 10:00 05/31/19 10:38 Cardizem Cd - PO 120 mg DAILY [facility] Administration Heparin Sodium (Porcine) 5,000 unit 05/31/19 06:00 06/01/19 07:11 Heparin - SQ Not Given TID [facility] Azithromycin 250 mg/ Dextrose 250 mls @ 250 mls/hr 06/01/19 10:00 IVPB DAILY [facility] Methylprednisolone Sodium Succinate 40 mg 05/31/19 18:00 06/01/19 01:50 Solu-Medrol - IVPUSH 40 mg Q8H-IV [facility] Administration Montelukast Sodium 10 mg 05/31/19 22:00 05/31/19 22:23 Singulair - PO 10 mg HS EUNICE Administration Pantoprazole Sodium 40 mg 05/31/19 07:00 06/01/19 07:10 Protonix - PO 40 mg ACBK [facility] Administration Phenytoin Sodium 100 mg 05/31/19 10:00 05/31/19 23:11 Dilantin - PO 100 mg BID [facility] Administration Tiotropium [place] 2 puff 06/01/19 10:00 Spiriva Respimat IH DAILY [facility] Home Medications Medication Instructions Recorded Phenytoin Na Extended [Dilantin -] 100 mg PO BID 06/11/14 Montelukast Na [Singulair -] 10 mg PO HS #90 tablet 06/15/14 Simvastatin [Zocor -] 20 mg PO HS #90 06/15/14 Guaifenesin Dm [Robitussin Dm -] 10 ml PO Q4H PRN cup 10/25/18 Diltiazem Cd [Cardizem Cd -] 120 mg PO DAILY cap.cd.24h 01/11/19 Albuterol 0.083% Nebulizer Arlyn 1 amp NEB RQID PRN 04/17/19 [Ventolin 0.083% Nebulizer Soln -] Albuterol 2.5/Ipratropium 0.5 1 amp NEB RQID PRN 04/17/19 [Duoneb -] Acetaminophen [Tylenol .Regular 650 mg PO Q8H PRN tablet 04/23/19 Strength -] Aspirin 81 mg PO DAILY 05/30/19 Esomeprazole Magnesium [Nexium 40 mg PO DAILY 05/30/19 24Hr] Fexofenadine/Pseudoephedrine 1 each PO BID PRN 05/30/19 [Kalpana-D 12 Hour Tablet] Fluticasone Propionate [Flovent 250 mcg IH Q12H 05/30/19 Diskus] Fluticasone/Salmeterol [Advair 1 each IH DAILY 05/30/19 250-50 Diskus] Fluticasone/Vilanterol [Breo 62.5 mcg IH 05/30/19 Ellipta 100-25 Mcg INH] Levalbuterol Tartrate [Xopenex Hfa] 15 gm IH DAILY 05/30/19 Mometasone Furoate 50 mcg NS 05/30/19 Tiotropium [place] [Spiriva] 18 mcg IH DAILY 05/30/19 ASSESSMENT AND PLAN: Patient is a 73yo male with PMHx of COPD, on 2 L of O2 at home, CAD, s/p PCI and stents, HTN, seizures, HLP, and GERD who presented with SOB . He was found to have acute COPD exacerbation. # Acute COPD exacerbation: on steroids , dc spiriva while on Duo-Nebs , cont Symbicort, SW working on his home O2 supplies - send flu swab # Malnourished with BMI of 14k , nutrition consult #Hx of seizures: continue home meds #CAD : cont meds DVT PX : heparin PT eval pediatric social worker on the case , will arrange for home oxygen
[2019-06-01 09:00] LABS: CALCIUM 8.8 mg/dL (8.5-10.1); CREATININE 0.5 mg/dL (0.55-1.3); POTASSIUM 4.3 mmol/L (3.5-5.1)
[2019-06-01] MEDS ORDERED: PT OWN MED DRAWER 7, Y5N ONE ×3 (10:02→22:18)
[2019-06-01] MEDS: ASPIRIN 81 MG CHEWABLE TABLETS PO SCH (10:03)
[2019-06-01] MEDS: PHENYTOIN NA EXTENDED 100 MG CAPSULE (FP) PO SCH ×2 (10:03→22:29)
[2019-06-01] MEDS: BUDESONIDE/FORMETEROL FUMARATE 160/4.5 mcg INHALER IH SCH ×2 (10:07→22:30)
[2019-06-01] MEDS: TIOTROPIUM BROMIDE 2.5 MCG (SPIRIVA) RESPIMAT INHALER IH SCH (10:07)
[2019-06-01 11:11] LABS: RETICULOCYTES 1.08 % (0.5-1.5)
--- NOTE | 2019-06-01 12:55 | PN ---
Teaching Attending Note Name of Resident: Rose Marie Kim ATTENDING PHYSICIAN STATEMENT I saw and evaluated the patient. I reviewed the resident's note and discussed the case with the resident. I agree with the resident's findings and plan as documented. PULMONARY ALERT,FEELING BETTER,LESS DYSPNEC,+ COUGH IMP ADVANCED COPD O2 DEPENDENT WITH ACUTE EXACERBATION BACTEREMIA LIKELY H/O RUL LOBECTOMY 1983 SECONDARY TO COLLAPSED LUNG ASHD S/P [place] 1983 GOUT PANCHITO CONSOLIDATION CHRONIC HYPOTHYROID ANEMIA PLAN ABX INHALED BRONCHODILATORS O2 CONTINUE MEDROL SAME DOSE DR LOPEZ Problem List - Problems (1) Chronic hypoxemic respiratory failure Code(s): J96.11 - CHRONIC RESPIRATORY FAILURE WITH HYPOXIA (2) Anemia Code(s): D64.9 - ANEMIA, UNSPECIFIED Qualifiers: Anemia type: unspecified type Qualified Code(s): D64.9 - Anemia, unspecified (3) Cachexia Code(s): R64 - CACHEXIA (4) URI (upper respiratory infection) Code(s): J06.9 - ACUTE UPPER RESPIRATORY INFECTION, UNSPECIFIED Qualifiers: URI type: unspecified URI Qualified Code(s): J06.9 - Acute upper respiratory infection, unspecified (5) CAD (coronary artery disease) Code(s): I25.10 - ATHSCL HEART DISEASE OF [place] CORONARY ARTERY W/O ANG PCTRS (6) CVA (cerebral vascular accident) Code(s): I63.9 - CEREBRAL INFARCTION, UNSPECIFIED (7) Cachexia Code(s): R64 - CACHEXIA (8) HLD (hyperlipidemia) Code(s): E78.5 - HYPERLIPIDEMIA, UNSPECIFIED (9) HTN (hypertension) Code(s): I10 - ESSENTIAL (PRIMARY) HYPERTENSION (10) Pulmonary hypertension Code(s): I27.2 - OTHER SECONDARY PULMONARY HYPERTENSION * DO NOT USE * (11) Respiratory distress Code(s): R06.00 - DYSPNEA, UNSPECIFIED (12) Severe malnutrition Code(s): E43 - UNSPECIFIED SEVERE PROTEIN-CALORIE MALNUTRITION (13) Seizure disorder Code(s): G40.909 - EPILEPSY, UNSP, NOT INTRACTABLE, WITHOUT STATUS EPILEPTICUS (14) Acute exacerbation of chronic obstructive pulmonary disease (COPD) Code(s): J44.1 - CHRONIC OBSTRUCTIVE PULMONARY DISEASE W (ACUTE) EXACERBATION
--- NOTE | 2019-06-01 15:52 | PN ---
Physical Exam: SUBJECTIVE: Patient seen and examined. Appears comfortable on nasal cannular. Requesting to ambulate with assistance. No chest pain, no leg swelling. OBJECTIVE: Vital Signs Period Temp Pulse Resp BP Sys/Fernández Pulse Ox Last 24 Hr 97.4 F-98.7 F 65-75 18-20 110-132/54-66 96-98 Vital Signs Temp 97.6 F 06/01/19 09:59 Pulse 72 06/01/19 09:59 Resp 20 06/01/19 09:59 BP 110/61 06/01/19 09:59 Pulse Ox 98 05/31/19 21:00 Intake & Output 05/31/19 06/01/19 06/01/19 23:59 11:59 23:59 Intake Total 840 Output Total 200 Balance -200 840 Weight 42.456 kg Intake: Oral 200 Oral Supplement 640 Output: Urine 200 Void 200 Other: Voiding Method Incontinent Diaper # Unmeasured Voids Void 1 1 Height 1.45 m Body Mass Index (BMI) 20.2 Weight Measurement Method Patient Lift Scale GENERAL: The patient is awake, alert, and fully oriented, in no acute respiratory distress. Thin ENT: moist mucous membranes, NC. NECK: supple. LUNGS: reduced breath sounds b/l HEART: Regular rate and rhythm, S1, S2 ABDOMEN: Soft, nontender, scaphoid EXTREMITIES: 2+ pulses, warm, well-perfused, no edema. NEUROLOGICAL: Cranial nerves II through XII grossly intact. Normal speech, gait not observed. Laboratory Results - last 24 hr 05/31/19 05/31/19 06/01/19 06:00 15:10 08:04 WBC 5.5 RBC 4.49 Hgb 11.0 L Hct 34.4 L MCV 76.5 L MCH 24.5 L MCHC 32.0 RDW 18.1 H Plt Count 198 MPV 9.5 Retic Count 1.08 Sodium 138 Potassium 4.4 Chloride 100 Carbon Dioxide 28 Anion Gap 10 BUN 11.3 Creatinine 0.4 L Est GFR (CKD-EPI)AfAm 135.61 Est GFR (CKD-EPI)NonAf 117.01 Random Glucose 107 H Calcium 8.8 Phosphorus 3.7 Magnesium 2.0 Iron TIBC Iron Saturation Unsaturated IBC Ferritin 17.2 Total Bilirubin 0.4 AST 7 L ALT 12 L Alkaline Phosphatase 195 H Total Protein 6.5 Albumin 3.4 Influenza A (Rapid) Negative Influenza B (Rapid) Negative 06/01/19 08:04 WBC RBC Hgb Hct MCV MCH MCHC RDW Plt Count MPV Retic Count Sodium 135 L Potassium 4.3 Chloride 99 Carbon Dioxide 29 Anion Gap 7 L BUN 18.0 Creatinine 0.5 L Est GFR (CKD-EPI)AfAm 123.73 Est GFR (CKD-EPI)NonAf 106.75 Random Glucose 105 Calcium 8.8 Phosphorus Magnesium Iron 19 L TIBC 295 Iron Saturation 6 L Unsaturated IBC 276 H Ferritin Total Bilirubin AST ALT Alkaline Phosphatase Total Protein Albumin Influenza A (Rapid) Influenza B (Rapid) Active Medications Generic Name Dose Route Start Last Admin Trade Name Freq PRN Reason Stop Dose Admin Albuterol Sulfate 1 amp 05/31/19 16:32 Ventolin 0.083% Nebulizer Soln - NEB Q6H PRN SHORT OF BREATH/WHEEZING Aspirin 81 mg 05/31/19 10:00 06/01/19 10:03 Asa - PO 81 mg DAILY EUNICE Administration Atorvastatin Calcium 10 mg 05/31/19 22:00 05/31/19 22:23 Lipitor - PO 10 mg HS EUNICE Administration Budesonide/Formoterol Fumarate 1 puff 05/31/19 10:00 06/01/19 10:07 Symbicort 160/4.5mcg - IH 1 puff BID EUNICE Administration Diltiazem HCl 120 mg 05/31/19 10:00 06/01/19 10:03 Cardizem Cd - PO 120 mg DAILY EUNICE Administration Heparin Sodium (Porcine) 5,000 unit 05/31/19 06:00 06/01/19 14:17 Heparin - SQ Not Given TID EUNICE Azithromycin 250 mg/ Dextrose 250 mls @ 250 mls/hr 06/01/19 10:00 IVPB DAILY E[facility]ICE Methylprednisolone Sodium Succinate 40 mg 05/31/19 18:00 06/01/19 10:12 Solu-Medrol - IVPUSH Not Given Q8H-IV EUNICE Montelukast Sodium 10 mg 05/31/19 22:00 05/31/19 22:23 Singulair - PO 10 mg HS EUNICE Administration Pantoprazole Sodium 40 mg 05/31/19 07:00 06/01/19 07:10 Protonix - PO 40 mg ACBK EUNICE Administration Phenytoin Sodium 100 mg 05/31/19 10:00 06/01/19 10:03 Dilantin - PO 100 mg BID EUNICE Administration Tiotropium [place] 2 puff 06/01/19 10:00 06/01/19 10:07 Spiriva Respimat IH 2 puff DAILY EUNICE Administration ASSESSMENT/PLAN: Pt is a 73 yo M with PMHx of COPD- chronic bronchitis -2L O2, HTN, HLD, PH, CAD s/p stent, seizure disorder, GERD, presenting from home with hx of worsening SOB and increased sputum production. COPD- chronic bronchitis -2L O2, HTN, HLD, PH, CAD s/p stent, seizure disorder, GERD COPD exacerbation Acute on chronic hypercapnic, hypoxic respiratory failure leukopenia Anemia Plan: COPD GOLD class D- pt with more than 2 exacerbations this year, on chronic home oxygen Cont ventolin inhaler Cont spiriva Cont symbicort Cont azithromycin Cont solumed to 40iv Q8H to manage inflammation and titrate down as needed Cont singulair DVT prophylaxis Cont GI prophylaxis Other mx per primary team Cont supplemental oxygen Pt maybe a candidate for daliresp as outpt Consider iron supplementation D/W Dr Chely Kim PGY 3 Visit type - Emergency Visit Emergency Visit: Yes ED Registration Date: 05/30/19 Care time: The patient presented to the Emergency Department on the above date and was hospitalized for further evaluation of their emergent condition. - New Patient This patient is new to me today: No - Critical Care Critical Care patient: No - Discharge Referral Referred to [facility] Med P.C.: No ATTENDING PHYSICIAN STATEMENT I saw and evaluated the patient. I reviewed the resident's note and discussed the case with the resident. I agree with the resident's findings and plan as documented. SUBJECTIVE: OBJECTIVE: ASSESSMENT AND PLAN:
--- NOTE | 2019-06-01 16:07 | PROC ---
Procedure Note Procedure: Asked to place IV in patient after several failed attempts by nursing. Patient seen and examined at bedside, stable with no complaints. Under sterile technique a 24G IV was placed into the patients left forearm. The IV aspirated and flushed with ease. IV was secured in place.
[2019-06-01 16:24] VITALS: BMI 13.7
--- NOTE | 2019-06-01 17:08 | PN ---
Physical Exam: SUBJECTIVE: Patient seen and examined at the bedside, there were no acute events overnight. Patient reports he is still coughing up copious amounts of white phlegm. OBJECTIVE: Vital Signs Period Temp Pulse Resp BP Sys/Fernández Pulse Ox Last 24 Hr 97.4 F-98.7 F 65-75 18-20 110-132/54-66 96-98 Exam limited because patient is refusing to participate fully GENERAL: Cachectic elderly male lying in bed. AOx3. HEENT: Dry mucous membranes. EOMI intact, PERRL LUNGS: on 3LNC, lungs sound clear to ascultation bilaterally, no accessory muscle use HEART: Regular rate and rhythm, normal S1 and S2 without murmurs ABDOMEN: Soft, nontender, not distended UPPER EXTREMITIES: 2+ pulses, warm, well-perfused. No peripheral edema. LOWER EXTREMITIES: 2+ pulses, warm, well-perfused. No peripheral edema. PSYCHIATRIC: Appropriate mood and affect. SKIN: Dry skin b/l UE and LE. R knee has healing scab Laboratory Results - last 24 hr 06/01/19 06/01/19 08:04 08:04 WBC 5.5 RBC 4.49 Hgb 11.0 L Hct 34.4 L MCV 76.5 L MCH 24.5 L MCHC 32.0 RDW 18.1 H Plt Count 198 MPV 9.5 Retic Count 1.08 Sodium 135 L Potassium 4.3 Chloride 99 Carbon Dioxide 29 Anion Gap 7 L BUN 18.0 Creatinine 0.5 L Est GFR (CKD-EPI)AfAm 123.73 Est GFR (CKD-EPI)NonAf 106.75 Random Glucose 105 Calcium 8.8 Iron 19 L TIBC 295 Iron Saturation 6 L Unsaturated IBC 276 H Active Medications Generic Name Dose Route Start Last Admin Trade Name Freq PRN Reason Stop Dose Admin Albuterol Sulfate 1 amp 05/31/19 16:32 Ventolin 0.083% Nebulizer Soln - NEB Q6H PRN SHORT OF BREATH/WHEEZING Aspirin 81 mg 05/31/19 10:00 06/01/19 10:03 Asa - PO 81 mg DAILY EUNICE Administration Atorvastatin Calcium 10 mg 05/31/19 22:00 05/31/19 22:23 Lipitor - PO 10 mg HS EUNICE Administration Budesonide/Formoterol Fumarate 1 puff 05/31/19 10:00 06/01/19 10:07 Symbicort 160/4.5mcg - IH 1 puff BID EUNICE Administration Diltiazem HCl 120 mg 05/31/19 10:00 06/01/19 10:03 Cardizem Cd - PO 120 mg DAILY EUNICE Administration Docusate Sodium 100 mg 06/01/19 17:15 Colace - PO DAILY EUNICE Ferrous Sulfate 325 mg 06/01/19 17:15 Feosol - PO DAILY EUNICE Heparin Sodium (Porcine) 5,000 unit 05/31/19 06:00 06/01/19 14:17 Heparin - SQ Not Given TID EUNICE Azithromycin 250 mg/ Dextrose 250 mls @ 250 mls/hr 06/01/19 10:00 IVPB DAILY EUNICE Methylprednisolone Sodium Succinate 40 mg 05/31/19 18:00 06/01/19 16:04 Solu-Medrol - IVPUSH 40 mg Q8H-IV EUNICE Administration Montelukast Sodium 10 mg 05/31/19 22:00 05/31/19 22:23 Singulair - PO 10 mg HS EUNICE Administration Pantoprazole Sodium 40 mg 05/31/19 07:00 06/01/19 07:10 Protonix - PO 40 mg ACBK EUNICE Administration Phenytoin Sodium 100 mg 05/31/19 10:00 06/01/19 10:03 Dilantin - PO 100 mg BID EUNICE Administration Tiotropium [place] 2 puff 06/01/19 10:00 06/01/19 10:07 Spiriva Respimat IH 2 puff DAILY EUNICE Administration Imaging -CXR: moderately severe COPD, no acute disease -ABG WNL ASSESSMENT/PLAN: 73 y.o. PMH COPD chronic bronchitis (w/ recent admission for COPD exacerbation discharged 04/23/19) on 2L home O2, HTN, HLD, pulm HTN, CAD, seizure disorder, GERD presenting with SOB x 2 days found to have acute COPD exacerbation #COPD acute bronchitis exacerbation - Pulmonology, Dr. Mo, evaluated patient, appreciate recommendations - continue ventolin inhaler - continue singulair - continue Spiriva - DC duonebs - continue symbicort - continue azithromycin TIW - increase solumed to 40IV Q8H to manage inflammation, titrate down as needed - continue O2NC prn - Per pulm, pt maybe a candidate for daliresp as outpt #Microcytic anemia -F/u FOBT -F/u outpatient for colonoscopy -Started PO iron supplementation and colace #Isolated alk phos -F/u RUQ U/s > showing mild fatty infiltrate, no acute process #CAD -C/w aspirin 81mg daily #HTN -C/w diltiazem 120mg daily -Monitor vitals #HLD -C/w simvastatin 20mg daily #Seizure d/o -C/w dilantin 100mg PO BID #DVT PPX -Heparin 5000 SQ TID -Protonix 40mg PO daily #FEN -No standing fluids -Monitor lytes -Sodium controlled diet -recommend DEXA scan outpatient d/t thin stature and likely osteo seen on XR #Dispo-pending improvement of COPD exacerbation Visit type - Emergency Visit Emergency Visit: Yes ED Registration Date: 05/30/19 Care time: The patient presented to the Emergency Department on the above date and was hospitalized for further evaluation of their emergent condition. - New Patient This patient is new to me today: No - Critical Care Critical Care patient: No - Discharge Referral Referred to [facility] Med P.C.: No ATTENDING PHYSICIAN STATEMENT I saw and evaluated the patient. I reviewed the resident's note and discussed the case with the resident. I agree with the resident's findings and plan as documented. SUBJECTIVE: OBJECTIVE: ASSESSMENT AND PLAN:
[2019-06-01] MEDS: FERROUS SO4 325 MG TABLET (FP) PO SCH (17:47)
[2019-06-01] MEDS: DOCUSATE SODIUM 100 MG CAPSULE (FP) PO SCH (17:48)
[2019-06-01] MEDS: ATORVASTATIN CA 10 MG TABLET (FP) PO SCH (22:29)
[2019-06-01] MEDS: MONTELUKAST NA 10 MG TABLET PO SCH (22:29)
[2019-06-02] MEDS: methylPREDNISolone NA SUCC 40 MG/1 ML VIAL IVPUSH SCH ×3 (02:45→18:37)
[2019-06-02] MEDS: HEPARIN NA (PORCINE) 5,000 UNITS/ML 1ML VIAL SQ SCH ×3 (05:12→21:46)
[2019-06-02] MEDS: PANTOPRAZOLE 40 MG TABLET (FP) PO SCH (06:26)
[2019-06-02 07:19] LABS: HEMATOCRIT 33.8 % (35.4-49); HEMOGLOBIN 10.9 GM/dL (11.7-16.9); MCH 24.6 pg (25.7-33.7); MCHC 32.1 g/dl (32.0-35.9); MEAN CELL VOLUME 76.6 fl (80-96); MEAN PLT VOLUME 9.5 fl (7.5-11.1); PLATELET COUNT 171 K/MM3 (134-434); RBC 4.42 M/mm3 (4.00-5.60); RDW 18.8 % (11.9-15.9)
[2019-06-02 07:40] LABS: BLOOD UREA NITROGEN 19.8 mg/dL (7-18); CALCIUM 8.3 mg/dL (8.5-10.1); CREATININE 0.5 mg/dL (0.55-1.3)
[2019-06-02] MEDS: FERROUS SO4 325 MG TABLET (FP) PO SCH (11:05)
[2019-06-02] MEDS: BUDESONIDE/FORMETEROL FUMARATE 160/4.5 mcg INHALER IH SCH ×2 (11:05→23:24)
[2019-06-02] MEDS: TIOTROPIUM BROMIDE 2.5 MCG (SPIRIVA) RESPIMAT INHALER IH SCH (11:05)
--- NOTE | 2019-06-02 11:05 | PN ---
Progress Note (short form) - Note Progress Note: PULMONARY Still with shortness of breath, cough with white sputum and wheezing. Vital Signs Period Temp Pulse Resp BP Sys/Fernández Pulse Ox Last 24 Hr 97.5 F-97.5 F 68-78 20-20 102-130/63-84 Gen: NAD at rest Heart: RRR Lung: scattered rhonchi, wheezes Abd: soft, nontender Ext: no edema CBC, BMP 06/02/19 06:55 06/02/19 06:55 Active Medications Albuterol Sulfate (Ventolin 0.083% Nebulizer Soln -) 1 amp NEB Q6H PRN PRN Reason: SHORT OF BREATH/WHEEZING Aspirin (Asa -) 81 mg PO DAILY [facility] Last Admin: 06/01/19 10:03 Dose: 81 mg Atorvastatin Calcium (Lipitor -) 10 mg PO HS [facility] Last Admin: 06/01/19 22:29 Dose: 10 mg Budesonide/Formoterol Fumarate (Symbicort 160/4.5mcg -) 1 puff IH BID [facility] Last Admin: 06/01/19 22:30 Dose: 1 puff Diltiazem HCl (Cardizem Cd -) 120 mg PO DAILY [facility] Last Admin: 06/01/19 10:03 Dose: 120 mg Docusate Sodium (Colace -) 100 mg PO DAILY [facility] Last Admin: 06/01/19 17:48 Dose: Not Given Ferrous Sulfate (Feosol -) 325 mg PO DAILY [facility] Last Admin: 06/01/19 17:47 Dose: 325 mg Heparin Sodium (Porcine) (Heparin -) 5,000 unit SQ TID [facility] Last Admin: 06/02/19 05:12 Dose: Not Given Azithromycin 250 mg/ Dextrose 250 mls @ 250 mls/hr IVPB DAILY [facility] Methylprednisolone Sodium Succinate (Solu-Medrol -) 40 mg IVPUSH Q8H-IV [facility] Last Admin: 06/02/19 02:45 Dose: 40 mg Montelukast Sodium (Singulair -) 10 mg PO HS [facility] Last Admin: 06/01/19 22:29 Dose: 10 mg Pantoprazole Sodium (Protonix -) 40 mg PO ACBK [facility] Last Admin: 06/02/19 06:26 Dose: 40 mg Phenytoin Sodium (Dilantin -) 100 mg PO BID [facility] Last Admin: 06/01/19 22:29 Dose: 100 mg Tiotropium [place] (Spiriva Respimat) 2 puff IH DAILY [facility]UNICE Last Admin: 06/01/19 10:07 Dose: 2 puff A/P Acute COPD Exacerbation Acute Bronchitis h/o RUL Lobectomy CAD Chronic PANCHITO consolidation Hypothyroidism Anemia - continue medrol at current dose - inhaled bronchodilators - azithromycin - O2 to keep SpO2 >90% - DVT prophylaxis
[2019-06-02] MEDS: ASPIRIN 81 MG CHEWABLE TABLETS PO SCH (11:06)
[2019-06-02] MEDS: DOCUSATE SODIUM 100 MG CAPSULE (FP) PO SCH (11:06)
[2019-06-02] MEDS: PHENYTOIN NA EXTENDED 100 MG CAPSULE (FP) PO SCH ×2 (11:06→23:10)
[2019-06-02] MEDS: AZITHROMYCIN IVPB 250 MG in DEXTROSE 5%-WATER - 250 ML IVPB SCH ×2 (11:07→14:22)
--- NOTE | 2019-06-02 16:06 | PN ---
Physical Exam: SUBJECTIVE: Patient seen and examined at the bedside, there were no acute events overnight. Patient is stable and his COPD exacerbation is improving. OBJECTIVE: Vital Signs Period Temp Pulse Resp BP Sys/Fernández Pulse Ox Last 24 Hr 97.5 F-97.6 F 68-85 18-20 102-130/61-84 Exam limited because patient is refusing to participate fully GENERAL: Cachectic elderly male lying in bed. AOx3. HEENT: Dry mucous membranes. EOMI intact, PERRL LUNGS: on 3LNC, lungs sound clear to ascultation bilaterally, no accessory muscle use HEART: Regular rate and rhythm, normal S1 and S2 without murmurs ABDOMEN: Soft, nontender, not distended UPPER EXTREMITIES: 2+ pulses, warm, well-perfused. No peripheral edema. LOWER EXTREMITIES: 2+ pulses, warm, well-perfused. No peripheral edema. PSYCHIATRIC: Appropriate mood and affect. SKIN: Dry skin b/l UE and LE. R knee has healing scab Laboratory Results - last 24 hr 06/02/19 06/02/19 06:55 06:55 WBC 10.0 RBC 4.42 Hgb 10.9 L Hct 33.8 L MCV 76.6 L MCH 24.6 L MCHC 32.1 RDW 18.8 H Plt Count 171 MPV 9.5 Sodium 137 Potassium 4.0 Chloride 102 Carbon Dioxide 29 Anion Gap 6 L BUN 19.8 H Creatinine 0.5 L Est GFR (CKD-EPI)AfAm 123.73 Est GFR (CKD-EPI)NonAf 106.75 Random Glucose 86 Calcium 8.3 L Active Medications Generic Name Dose Route Start Last Admin Trade Name Freq PRN Reason Stop Dose Admin Albuterol Sulfate 1 amp 05/31/19 16:32 Ventolin 0.083% Nebulizer Soln - NEB Q6H PRN SHORT OF BREATH/WHEEZING Aspirin 81 mg 05/31/19 10:00 06/02/19 11:06 Asa - PO 81 mg DAILY EUNICE Administration Atorvastatin Calcium 10 mg 05/31/19 22:00 06/01/19 22:29 Lipitor - PO 10 mg HS EUNICE Administration Budesonide/Formoterol Fumarate 1 puff 05/31/19 10:00 06/02/19 11:05 Symbicort 160/4.5mcg - IH 1 puff BID EUNICE Administration Diltiazem HCl 120 mg 05/31/19 10:00 06/02/19 11:06 Cardizem Cd - PO 120 mg DAILY EUNICE Administration Docusate Sodium 100 mg 06/01/19 17:15 06/02/19 11:06 Colace - PO 100 mg DAILY EUNICE Administration Ferrous Sulfate 325 mg 06/01/19 17:15 06/02/19 11:05 Feosol - PO 325 mg DAILY EUNICE Administration Heparin Sodium (Porcine) 5,000 unit 05/31/19 06:00 06/02/19 14:22 Heparin - SQ Not Given TID EUNICE Azithromycin 250 mg/ Dextrose 250 mls @ 250 mls/hr 06/01/19 10:00 06/02/19 14 :22 IVPB 250 mls/hr DAILY EUNICE Administration Methylprednisolone Sodium Succinate 40 mg 05/31/19 18:00 06/02/19 11:07 Solu-Medrol - IVPUSH 40 mg Q8H-IV EUNICE Administration Montelukast Sodium 10 mg 05/31/19 22:00 06/01/19 22:29 Singulair - PO 10 mg HS EUNICE Administration Pantoprazole Sodium 40 mg 05/31/19 07:00 06/02/19 06:26 Protonix - PO 40 mg ACBK EUNICE Administration Phenytoin Sodium 100 mg 05/31/19 10:00 06/02/19 11:06 Dilantin - PO 100 mg BID EUNICE Administration Tiotropium [place] 2 puff 06/01/19 10:00 06/02/19 11:05 Spiriva Respimat IH 2 puff DAILY EUNICE Administration Imaging -CXR: moderately severe COPD, no acute disease -ABG WNL ASSESSMENT/PLAN: 73 y.o. PMH COPD chronic bronchitis (w/ recent admission for COPD exacerbation discharged 04/23/19) on 2L home O2, HTN, HLD, pulm HTN, CAD, seizure disorder, GERD presenting with SOB x 2 days found to have acute COPD exacerbation #COPD acute bronchitis exacerbation - Pulmonology, Dr. Mo, evaluated patient, appreciate recommendations - continue ventolin inhaler - continue singulair - continue Spiriva - DC duonebs - continue symbicort - continue azithromycin TIW - increase solumed to 40IV Q8H to manage inflammation, titrate down as needed - continue O2NC prn - Per pulm, pt maybe a candidate for daliresp as outpt #Microcytic anemia -F/u FOBT -F/u outpatient for colonoscopy -Started PO iron supplementation and colace #Isolated alk phos -F/u RUQ U/s > showing mild fatty infiltrate, no acute process #CAD -C/w aspirin 81mg daily #HTN -C/w diltiazem 120mg daily -Monitor vitals #HLD -C/w simvastatin 20mg daily #Seizure d/o -C/w dilantin 100mg PO BID #DVT PPX -Heparin 5000 SQ TID -Protonix 40mg PO daily #FEN -No standing fluids -Monitor lytes -Sodium controlled diet -recommend DEXA scan outpatient d/t thin stature and likely osteo seen on XR #Dispo-pending improvement of COPD exacerbation Visit type - Emergency Visit Emergency Visit: Yes ED Registration Date: 05/30/19 Care time: The patient presented to the Emergency Department on the above date and was hospitalized for further evaluation of their emergent condition. - New Patient This patient is new to me today: No - Critical Care Critical Care patient: No - Discharge Referral Referred to [facility] Med P.C.: No ATTENDING PHYSICIAN STATEMENT I saw and evaluated the patient. I reviewed the resident's note and discussed the case with the resident. I agree with the resident's findings and plan as documented. SUBJECTIVE: OBJECTIVE: ASSESSMENT AND PLAN:
[2019-06-02] MEDS ORDERED: predniSONE 20 MG TABLET (UD) PO ONE (17:02)
--- NOTE | 2019-06-02 19:10 | PN ---
Teaching Attending Note Name of Resident: Valeria Cheng ATTENDING PHYSICIAN STATEMENT I saw and evaluated the patient. I reviewed the resident's note and discussed the case with the resident. I agree with the resident's findings and plan as documented. SUBJECTIVE: Patient is comfortable on oxygen NL, coughing on and off OBJECTIVE: Vital Signs Temperature 98.0 F 06/02/19 18:00 Pulse Rate 80 06/02/19 18:00 Respiratory Rate 18 06/02/19 18:00 Blood Pressure 124/60 06/02/19 18:00 O2 Sat by Pulse Oximetry (%) 99 06/02/19 09:00 GENERAL: The patient is awake, alert, and oriented, cachectic, NAD. HEAD: Normal with no signs of trauma. EYES: PERRL, extraocular movements intact, sclera anicteric, conjunctiva clear. ENT: Ears normal, oropharynx clear without exudates, moist mucous membranes. NECK: Trachea midline, full range of motion, supple. LUNGS: decreased Breath sounds bl, on home oxygen , no wheezes, no crackles, no accessory muscle use. HEART: Regular rate and rhythm, S1, S2 without murmur, rub or gallop. ABDOMEN: Soft, NT,ND, normoactive bowel sounds, no guarding, no rebound, no hepatosplenomegaly, no masses. EXTREMITIES: 2+ pulses, warm, well-perfused, no edema. NEUROLOGICAL: Cranial nerves II through XII grossly intact. Normal speech, gait not observed. PSYCH: Normal mood, normal affect. SKIN: Warm, dry, normal turgor, no rashes or lesions noted CBCD WBC 10.0 K/mm3 (4.0-10.0) 06/02/19 06:55 RBC 4.42 M/mm3 (4.00-5.60) 06/02/19 06:55 Hgb 10.9 GM/dL (11.7-16.9) L 06/02/19 06:55 Hct 33.8 % (35.4-49) L 06/02/19 06:55 MCV 76.6 fl (80-96) L 06/02/19 06:55 MCHC 32.1 g/dl (32.0-35.9) 06/02/19 06:55 RDW 18.8 % (11.9-15.9) H 06/02/19 06:55 Plt Count 171 K/MM3 (134-434) 06/02/19 06:55 MPV 9.5 fl (7.5-11.1) 06/02/19 06:55 CMP Sodium 137 mmol/L (136-145) 06/02/19 06:55 Potassium 4.0 mmol/L (3.5-5.1) 06/02/19 06:55 Chloride 102 mmol/L (98-107) 06/02/19 06:55 Carbon Dioxide 29 mmol/L (21-32) 06/02/19 06:55 Anion Gap 6 MMOL/L (8-16) L 06/02/19 06:55 BUN 19.8 mg/dL (7-18) H 06/02/19 06:55 Creatinine 0.5 mg/dL (0.55-1.3) L 06/02/19 06:55 Random Glucose 86 mg/dL (74-106) 06/02/19 06:55 Calcium 8.3 mg/dL (8.5-10.1) L 06/02/19 06:55 Total Bilirubin 0.4 mg/dL (0.2-1) 05/31/19 06:00 AST 7 U/L (15-37) L 05/31/19 06:00 ALT 12 U/L (13-61) L 05/31/19 06:00 Alkaline Phosphatase 195 U/L (45-117) H 05/31/19 06:00 Total Protein 6.5 g/dl (6.4-8.2) 05/31/19 06:00 Albumin 3.4 g/dl (3.4-5.0) 05/31/19 06:00 CARDIAC ENZYMES Troponin I < 0.02 ng/ml (0.00-0.05) 05/30/19 20:10 Current Medications Generic Name Dose Route Start Last Admin Trade Name Freq PRN Reason Stop Dose Admin Albuterol Sulfate 1 amp 05/31/19 16:32 Ventolin 0.083% Nebulizer Soln - NEB Q6H PRN SHORT OF BREATH/WHEEZING Aspirin 81 mg 05/31/19 10:00 06/02/19 11:06 Asa - PO 81 mg DAILY EUNICE Administration Atorvastatin Calcium 10 mg 05/31/19 22:00 06/01/19 22:29 Lipitor - PO 10 mg HS EUNICE Administration Budesonide/Formoterol Fumarate 1 puff 05/31/19 10:00 06/02/19 11:05 Symbicort 160/4.5mcg - IH 1 puff BID EUNICE Administration Diltiazem HCl 120 mg 05/31/19 10:00 06/02/19 11:06 Cardizem Cd - PO 120 mg DAILY EUNICE Administration Docusate Sodium 100 mg 06/01/19 17:15 06/02/19 11:06 Colace - PO 100 mg DAILY EUNICE Administration Ferrous Sulfate 325 mg 06/01/19 17:15 06/02/19 11:05 Feosol - PO 325 mg DAILY E[facility]ICE Administration Heparin Sodium (Porcine) 5,000 unit 05/31/19 06:00 06/02/19 14:22 Heparin - SQ Not Given TID EUNICE Azithromycin 250 mg/ Dextrose 250 mls @ 250 mls/hr 06/01/19 10:00 06/02/19 14 :22 IVPB 250 mls/hr DAILY [facility] Administration Methylprednisolone Sodium Succinate 40 mg 05/31/19 18:00 06/02/19 18:37 Solu-Medrol - IVPUSH Not Given Q8H-IV [facility]ICE Montelukast Sodium 10 mg 05/31/19 22:00 06/01/19 22:29 Singulair - PO 10 mg HS EUNICE Administration Pantoprazole Sodium 40 mg 05/31/19 07:00 06/02/19 06:26 Protonix - PO 40 mg ACBK [facility] Administration Phenytoin Sodium 100 mg 05/31/19 10:00 06/02/19 11:06 Dilantin - PO 100 mg BID EUNICE Administration Tiotropium [place] 2 puff 06/01/19 10:00 06/02/19 11:05 Spiriva Respimat IH 2 puff DAILY E[facility]ICE Administration Home Medications Medication Instructions Recorded Phenytoin Na Extended [Dilantin -] 100 mg PO BID 06/11/14 Montelukast Na [Singulair -] 10 mg PO HS #90 tablet 06/15/14 Simvastatin [Zocor -] 20 mg PO HS #90 06/15/14 Guaifenesin Dm [Robitussin Dm -] 10 ml PO Q4H PRN cup 10/25/18 Diltiazem Cd [Cardizem Cd -] 120 mg PO DAILY cap.cd.24h 01/11/19 Albuterol 0.083% Nebulizer [place] 1 amp NEB RQID PRN 04/17/19 [Ventolin 0.083% Nebulizer Soln -] Albuterol 2.5/Ipratropium 0.5 1 amp NEB RQID PRN 04/17/19 [Duoneb -] Acetaminophen [Tylenol .Regular 650 mg PO Q8H PRN tablet 04/23/19 Strength -] Aspirin 81 mg PO DAILY 05/30/19 Esomeprazole Magnesium [Nexium 40 mg PO DAILY 05/30/19 24Hr] Fexofenadine/Pseudoephedrine 1 each PO BID PRN 05/30/19 [[place]-D 12 Hour Tablet] Fluticasone/Salmeterol [Advair 1 each IH DAILY 05/30/19 250-50 Diskus] Levalbuterol Tartrate [Xopenex Hfa] 15 gm IH DAILY 05/30/19 Tiotropium [place] [Spiriva] 18 mcg IH DAILY 05/30/19 ASSESSMENT AND PLAN: Patient is a 73yo male with PMHx of COPD, on 2 L of O2 at home, CAD, s/p PCI and stents, HTN, seizures, HLP, and GERD who presented with SOB . He was found to have acute COPD exacerbation. # Acute COPD exacerbation: with h/o RUL Lobectomy continue; continue IV steroids ,dc spiriva while on Duo-Nebs , cont Symbicort, SW working on his home O2 supplies ;O2 to keep SpO2 >90% # Acute Bronchitis: on IV zithromax continue # Malnourished with BMI of 14k , nutrition consult #Hx of seizures: continue home meds #CAD : cont meds #Chronic PANCHITO consolidation #Hypothyroidism #Anemia DVT PX : heparin PT eval social worker psychiatric on the case , will arrange for home oxygen
[2019-06-02] MEDS: MONTELUKAST NA 10 MG TABLET PO SCH (21:46)
[2019-06-02] MEDS: ATORVASTATIN CA 10 MG TABLET (FP) PO SCH (21:46)
[2019-06-03] MEDS ORDERED: predniSONE 20 MG TABLET (UD) PO ONE (01:55)
[2019-06-03] MEDS: methylPREDNISolone NA SUCC 40 MG/1 ML VIAL IVPUSH SCH ×3 (02:09→17:17)
[2019-06-03] MEDS: PANTOPRAZOLE 40 MG TABLET (FP) PO SCH (06:01)
[2019-06-03] MEDS: HEPARIN NA (PORCINE) 5,000 UNITS/ML 1ML VIAL SQ SCH ×3 (06:01→21:52)
[2019-06-03 07:54] LABS: BLOOD UREA NITROGEN 14.7 mg/dL (7-18); CALCIUM 8.2 mg/dL (8.5-10.1); CREATININE 0.5 mg/dL (0.55-1.3); POTASSIUM 3.9 mmol/L (3.5-5.1)
[2019-06-03 07:55] LABS: HEMATOCRIT 35.7 % (35.4-49); HEMOGLOBIN 11.2 GM/dL (11.7-16.9); MCH 24.2 pg (25.7-33.7); MCHC 31.3 g/dl (32.0-35.9); MEAN CELL VOLUME 77.6 fl (80-96); MEAN PLT VOLUME 9.8 fl (7.5-11.1); PLATELET COUNT 177 K/MM3 (134-434); RDW 19.4 % (11.9-15.9); WHITE BLOOD COUNT 11.6 K/mm3 (4.0-10.0)
[2019-06-03] MEDS: DOCUSATE SODIUM 100 MG CAPSULE (FP) PO SCH (10:17)
[2019-06-03] MEDS: ASPIRIN 81 MG CHEWABLE TABLETS PO SCH (10:17)
[2019-06-03] MEDS: FERROUS SO4 325 MG TABLET (FP) PO SCH (10:17)
[2019-06-03] MEDS: PHENYTOIN NA EXTENDED 100 MG CAPSULE (FP) PO SCH ×2 (10:18→22:13)
[2019-06-03] MEDS: BUDESONIDE/FORMETEROL FUMARATE 160/4.5 mcg INHALER IH SCH ×2 (10:21→22:53)
[2019-06-03] MEDS: TIOTROPIUM BROMIDE 2.5 MCG (SPIRIVA) RESPIMAT INHALER IH SCH (10:21)
[2019-06-03] MEDS: AZITHROMYCIN 250 MG TABLET PO SCH (10:23)
--- NOTE | 2019-06-03 12:01 | PN ---
Progress Note, Physician History of Present Illness: pulmonary alert,comfortable,-resp distress - Current Medication List Current Medications: Active Medications Albuterol Sulfate (Ventolin 0.083% Nebulizer Soln -) 1 amp NEB Q6H PRN PRN Reason: SHORT OF BREATH/WHEEZING Aspirin (Asa -) 81 mg PO DAILY [facility] Last Admin: 06/03/19 10:17 Dose: 81 mg Atorvastatin Calcium (Lipitor -) 10 mg PO HS [facility] Last Admin: 06/02/19 21:46 Dose: 10 mg Azithromycin (Zithromax -) 250 mg PO DAILY [facility] Last Admin: 06/03/19 10:23 Dose: 250 mg Budesonide/Formoterol Fumarate (Symbicort 160/4.5mcg -) 1 puff IH BID [facility] Last Admin: 06/03/19 10:21 Dose: 1 puff Diltiazem HCl (Cardizem Cd -) 120 mg PO DAILY [facility] Last Admin: 06/03/19 10:17 Dose: 120 mg Docusate Sodium (Colace -) 100 mg PO DAILY [facility] Last Admin: 06/03/19 10:17 Dose: Not Given Ferrous Sulfate (Feosol -) 325 mg PO DAILY [facility] Last Admin: 06/03/19 10:17 Dose: 325 mg Heparin Sodium (Porcine) (Heparin -) 5,000 unit SQ TID [facility] Last Admin: 06/03/19 06:01 Dose: Not Given Methylprednisolone Sodium Succinate (Solu-Medrol -) 40 mg IVPUSH Q8H-IV [facility] Last Admin: 06/03/19 10:19 Dose: Not Given Montelukast Sodium (Singulair -) 10 mg PO HS [facility] Last Admin: 06/02/19 21:46 Dose: 10 mg Pantoprazole Sodium (Protonix -) 40 mg PO ACBK [facility] Last Admin: 06/03/19 06:01 Dose: 40 mg Phenytoin Sodium (Dilantin -) 100 mg PO BID [facility] Last Admin: 06/03/19 10:18 Dose: 100 mg Tiotropium [place] (Spiriva Respimat) 2 puff IH DAILY [facility] Last Admin: 06/03/19 10:21 Dose: 2 puff - Objective Vital Signs: Vital Signs Temperature 97.5 F L 06/03/19 06:00 Pulse Rate 69 06/03/19 06:00 Respiratory Rate 20 06/03/19 06:00 Blood Pressure 118/74 06/03/19 06:00 O2 Sat by Pulse Oximetry (%) 99 06/02/19 21:00 Constitutional: Yes: Calm, Cachectic Eyes: Yes: WNL HENT: Yes: WNL Neck: Yes: WNL Cardiovascular: Yes: Regular Rate and Rhythm, S1, S2 Respiratory: Yes: Diminished Gastrointestinal: Yes: Normal Bowel Sounds, Soft Extremities: Yes: WNL Edema: No Labs: CBC, BMP 06/03/19 07:20 06/03/19 07:20 Problem List - Problems (1) Chronic hypoxemic respiratory failure Code(s): J96.11 - CHRONIC RESPIRATORY FAILURE WITH HYPOXIA (2) Anemia Code(s): D64.9 - ANEMIA, UNSPECIFIED Qualifiers: Anemia type: unspecified type Qualified Code(s): D64.9 - Anemia, unspecified (3) Cachexia Code(s): R64 - CACHEXIA (4) URI (upper respiratory infection) Code(s): J06.9 - ACUTE UPPER RESPIRATORY INFECTION, UNSPECIFIED Qualifiers: URI type: unspecified URI Qualified Code(s): J06.9 - Acute upper respiratory infection, unspecified (5) CAD (coronary artery disease) Code(s): I25.10 - ATHSCL HEART DISEASE OF [place] CORONARY ARTERY W/O ANG PCTRS (6) CVA (cerebral vascular accident) Code(s): I63.9 - CEREBRAL INFARCTION, UNSPECIFIED (7) Cachexia Code(s): R64 - CACHEXIA (8) HLD (hyperlipidemia) Code(s): E78.5 - HYPERLIPIDEMIA, UNSPECIFIED (9) HTN (hypertension) Code(s): I10 - ESSENTIAL (PRIMARY) HYPERTENSION (10) Pulmonary hypertension Code(s): I27.2 - OTHER SECONDARY PULMONARY HYPERTENSION * DO NOT USE * (11) Respiratory distress Code(s): R06.00 - DYSPNEA, UNSPECIFIED (12) Severe malnutrition Code(s): E43 - UNSPECIFIED SEVERE PROTEIN-CALORIE MALNUTRITION (13) Seizure disorder Code(s): G40.909 - EPILEPSY, UNSP, NOT INTRACTABLE, WITHOUT STATUS EPILEPTICUS (14) Acute exacerbation of chronic obstructive pulmonary disease (COPD) Code(s): J44.1 - CHRONIC OBSTRUCTIVE PULMONARY DISEASE W (ACUTE) EXACERBATION Assessment/Plan IMP DYSPNEA improved END STAGE COPD 2 DEPENDENT WITH ACUTE EXACERBATION improved CHRONIC HYPOXEMIC RESPIRATORY FAILURE H/O DVT/PE PULMONARY HTN ASHD S/P STENT H/O SEIZURE HTN HLD PLAN prednisone 40mg po daily with taper 5mg every 2 days INHALED BRONCHODILATORS O2 ZITHROMAX 250 TIW CONSIDER DALIRESP D/C PLANNING DR LOPEZ Problem List - Problems (1) Chronic hypoxemic respiratory failure Code(s): J96.11 - CHRONIC RESPIRATORY FAILURE WITH HYPOXIA (2) Anemia Code(s): D64.9 - ANEMIA, UNSPECIFIED Qualifiers: Anemia type: unspecified type Qualified Code(s): D64.9 - Anemia, unspecified (3) Cachexia Code(s): R64 - CACHEXIA (4) URI (upper respiratory infection) Code(s): J06.9 - ACUTE UPPER RESPIRATORY INFECTION, UNSPECIFIED Qualifiers: URI type: unspecified URI Qualified Code(s): J06.9 - Acute upper respiratory infection, unspecified (5) CAD (coronary artery disease) Code(s): I25.10 - ATHSCL HEART DISEASE OF [place] CORONARY ARTERY W/O ANG PCTRS (6) CVA (cerebral vascular accident) Code(s): I63.9 - CEREBRAL INFARCTION, UNSPECIFIED (7) Cachexia Code(s): R64 - CACHEXIA (8) HLD (hyperlipidemia) Code(s): E78.5 - HYPERLIPIDEMIA, UNSPECIFIED (9) HTN (hypertension) Code(s): I10 - ESSENTIAL (PRIMARY) HYPERTENSION (10) Pulmonary hypertension Code(s): I27.2 - OTHER SECONDARY PULMONARY HYPERTENSION * DO NOT USE * (11) Respiratory distress Code(s): R06.00 - DYSPNEA, UNSPECIFIED (12) Severe malnutrition Code(s): E43 - UNSPECIFIED SEVERE PROTEIN-CALORIE MALNUTRITION (13) Seizure disorder Code(s): G40.909 - EPILEPSY, UNSP, NOT INTRACTABLE, WITHOUT STATUS EPILEPTICUS
--- NOTE | 2019-06-03 13:43 | DS ---
Physical Exam: SUBJECTIVE: Patient seen and examined at the bedside, there were no acute events overnight. Patient is stable and improving. OBJECTIVE: Vital Signs Period Temp Pulse Resp BP Sys/Fernández Pulse Ox Last 24 Hr 97.4 F-98.0 F 69-85 18-20 111-125/60-74 99 PHYSICAL EXAM Exam limited because patient is refusing to participate fully GENERAL: Cachectic elderly male lying in bed. AOx3. HEENT: Dry mucous membranes. EOMI intact, PERRL LUNGS: on 3LNC, lungs sound clear to ascultation bilaterally, no accessory muscle use HEART: Regular rate and rhythm, normal S1 and S2 without murmurs ABDOMEN: Soft, nontender, not distended UPPER EXTREMITIES: 2+ pulses, warm, well-perfused. No peripheral edema. LOWER EXTREMITIES: 2+ pulses, warm, well-perfused. No peripheral edema. PSYCHIATRIC: Appropriate mood and affect. SKIN: Dry skin b/l UE and LE. R knee has healing scab LABS Laboratory Results - last 24 hr 06/03/19 06/03/19 07:20 07:20 WBC 11.6 H RBC 4.60 Hgb 11.2 L Hct 35.7 MCV 77.6 L MCH 24.2 L MCHC 31.3 L RDW 19.4 H Plt Count 177 MPV 9.8 Sodium 138 Potassium 3.9 Chloride 101 Carbon Dioxide 31 Anion Gap 6 L BUN 14.7 Creatinine 0.5 L Est GFR (CKD-EPI)AfAm 123.73 Est GFR (CKD-EPI)NonAf 106.75 Random Glucose 103 Calcium 8.2 L HOSPITAL COURSE: Date of Admission:05/30/19 Mr. Desir is a 73 year old male with a past medical history of COPD, chronic bronchitis on 2L of oxygen at home, HTN, HLD, pulmonary HTN, CAD s/p stent placement, seizure disorder, and GERD. He presented to the ED with increased shortness of breath, sputum production and rhinorrhea. 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 In the ED the patient improved on Duonebs, SoluMedrol, and Bipap. He was later switched to 2L of oxygen on nasal cannula. Patient admitted for acute COPD exacerbation. Chest X-ray showed moderately severe COPD but no acute disease. EKG displayed normal sinus rhythm and left anterior fascicular block. 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 Ultrasound of the RV abdomen showed mild fatty infiltrate. A repeat chest X-ray the next day showed chronic changes w/scarring in left upper lobe with fibrosis, left hilar retraction and focal pleural thickening. No sign of infiltrate or failure we seen. Influenza A and B were negative. A pulmonary consult was obtained and pulmonary medications were optimized. It was suggested that the patient is a candidate for Daliresp in the future. During the stay, patient was also continued on his home medication for hypertension, hyperlipidemia, and seizures. In addition, the patient received physical therapy services and was able to ambulate with assistance while on oxygen. As the patient was cachexic, nutritional consult was obtained and suggested between meal supplementation to increase BMI. Patient refused supplementation. Patient was seen by pulmonology and was cleared for discharge. He is stable and is being discharged to home. Date of Discharge: 06/03/19 Minutes to complete discharge: 40 Discharge Summary Problems reviewed: Yes Reason For Visit: SHORTNESS OF BREATH Current Active Problems Acute bronchitis (Acute) Acute exacerbation of chronic obstructive pulmonary disease (COPD) (Acute) Acute hypoxemic respiratory failure (Acute) Anemia (Acute) Bronchitis, chronic with acute exacerbation (Acute) COPD (chronic obstructive pulmonary disease) (Acute) Cachexia (Acute) Chronic hypoxemic respiratory failure (Acute) Cough (Acute) URI (upper respiratory infection) (Acute) Condition: Stable - Instructions Diet, Activity, Other Instructions: You were in the hospital because you were experiencing a worsening of your COPD symptoms. While in the hospital you were given oxygen by nasal canula in addition to your breathing treatments. You were seen by Dr. Mo, your cylinder die machine helper. Your breathing improved and you were discharged home to [facility]. Please continue taking all of your medications as prescribed Please follow up with the following doctors within one week of discharge from the hospital: - Dr. Mo, your cylinder die machine helper - Dr. Whitten, a primary care doctor at [facility] ([phone]), [address] [place] [address]. If you experience symptoms of worsening shortness of breath, increased sputum production, or chest pains, please return to the Emergency Department immediately. Referrals: Jaime Whitten MD [Staff Physician] - 1 Week Flex Mo MD [Staff Physician] - 1 Week Disposition: HOME - Home Medications Comprehensive Discharge Medication List: Ambulatory Orders Phenytoin Na Extended [Dilantin -] 100 mg PO BID 06/11/14 Montelukast Na [Singulair -] 10 mg PO HS #90 tablet 06/15/14 Simvastatin [Zocor -] 20 mg PO HS #90 06/15/14 Guaifenesin Dm [Robitussin Dm -] 10 ml PO Q4H PRN cup 10/25/18 Diltiazem Cd [Cardizem Cd -] 120 mg PO DAILY cap.cd.24h 01/11/19 Albuterol 0.083% Nebulizer Arlyn [Ventolin 0.083% Nebulizer Soln -] 1 amp NEB RQID PRN 04/17/19 Albuterol 2.5/Ipratropium 0.5 [Duoneb -] 1 amp NEB RQID PRN 04/17/19 Acetaminophen [Tylenol .Regular Strength -] 650 mg PO Q8H PRN tablet 04/23/19 Aspirin 81 mg PO DAILY 05/30/19 Esomeprazole Magnesium [Nexium 24Hr] 40 mg PO DAILY 05/30/19 Fexofenadine/Pseudoephedrine [Kalpana-D 12 Hour Tablet] 1 each PO BID PRN Levalbuterol Tartrate [Xopenex Hfa] 15 gm IH DAILY 05/30/19 Tiotropium [place] [Spiriva] 18 mcg IH DAILY 05/30/19 Fluticasone/Salmeterol [Advair 250-50 Diskus] 1 each IH DAILY #1 blst.w.dev Prednisone See Taper PO DAILY #30 tablet 06/03/19 This patient is new to me today: No Emergency Visit: Yes ED Registration Date: 05/30/19 Care time: The patient presented to the Emergency Department on the above date and was hospitalized for further evaluation of their emergent condition. Critical Care patient: No - Discharge Referral [facility]erred to [facility] Med P.C.: No ATTENDING PHYSICIAN STATEMENT I saw and evaluated the patient. I reviewed the resident's note and discussed the case with the resident. I agree with the resident's findings and plan as documented. SUBJECTIVE: OBJECTIVE: ASSESSMENT AND PLAN:
[2019-06-03] MEDS: MONTELUKAST NA 10 MG TABLET PO SCH (22:13)
[2019-06-03] MEDS: ATORVASTATIN CA 10 MG TABLET (FP) PO SCH (22:13)
[2019-06-04] MEDS: HEPARIN NA (PORCINE) 5,000 UNITS/ML 1ML VIAL SQ SCH ×3 (05:30→22:04)
[2019-06-04] MEDS: PANTOPRAZOLE 40 MG TABLET (FP) PO SCH (06:41)
[2019-06-04] MEDS: FERROUS SO4 325 MG TABLET (FP) PO SCH (10:09)
[2019-06-04] MEDS: AZITHROMYCIN 250 MG TABLET PO SCH (10:09)
[2019-06-04] MEDS: ASPIRIN 81 MG CHEWABLE TABLETS PO SCH (10:10)
[2019-06-04] MEDS: PHENYTOIN NA EXTENDED 100 MG CAPSULE (FP) PO SCH ×2 (10:10→22:04)
[2019-06-04] MEDS: DOCUSATE SODIUM 100 MG CAPSULE (FP) PO SCH (10:10)
[2019-06-04] MEDS: TIOTROPIUM BROMIDE 2.5 MCG (SPIRIVA) RESPIMAT INHALER IH SCH (10:13)
[2019-06-04] MEDS: BUDESONIDE/FORMETEROL FUMARATE 160/4.5 mcg INHALER IH SCH ×2 (10:13→22:04)
[2019-06-04] MEDS ORDERED: PT OWN MED DRAWER 7, Y5N ONE (11:28)
--- NOTE | 2019-06-04 12:55 | PN ---
Progress Note (short form) - Note Progress Note: PULMONARY Breathing about the same, cough with white sputum. Vital Signs Period Temp Pulse Resp BP Sys/Fernández Pulse Ox Last 24 Hr 97.4 F-97.6 F 73-74 18-20 95-127/55-69 97 Gen: NAD at rest Heart: RRR Lung: scattered rhonchi, wheezes Abd: soft, nontender Ext: no edema CBC, BMP 06/03/19 07:20 06/03/19 07:20 Active Medications Albuterol Sulfate (Ventolin 0.083% Nebulizer Soln -) 1 amp NEB Q6H PRN PRN Reason: SHORT OF BREATH/WHEEZING Aspirin (Asa -) 81 mg PO DAILY [facility] Last Admin: 06/04/19 10:10 Dose: 81 mg Atorvastatin Calcium (Lipitor -) 10 mg PO HS [facility] Last Admin: 06/03/19 22:13 Dose: 10 mg Azithromycin (Zithromax -) 250 mg PO DAILY [facility] Last Admin: 06/04/19 10:09 Dose: 250 mg Budesonide/Formoterol Fumarate (Symbicort 160/4.5mcg -) 1 puff IH BID [facility] Last Admin: 06/04/19 10:13 Dose: 1 puff Diltiazem HCl (Cardizem Cd -) 120 mg PO DAILY [facility] Last Admin: 06/04/19 10:10 Dose: Not Given Docusate Sodium (Colace -) 100 mg PO DAILY [facility] Last Admin: 06/03/19 10:17 Dose: Not Given Ferrous Sulfate (Feosol -) 325 mg PO DAILY [facility] Last Admin: 06/04/19 10:09 Dose: 325 mg Heparin Sodium (Porcine) (Heparin -) 5,000 unit SQ TID [facility] Last Admin: 06/04/19 05:30 Dose: Not Given Montelukast Sodium (Singulair -) 10 mg PO HS [facility] Last Admin: 06/03/19 22:13 Dose: 10 mg Pantoprazole Sodium (Protonix -) 40 mg PO ACBK [facility] Last Admin: 06/04/19 06:41 Dose: 40 mg Phenytoin Sodium (Dilantin -) 100 mg PO BID [facility] Last Admin: 06/04/19 10:10 Dose: 100 mg Tiotropium [place] (Spiriva Respimat) 2 puff IH DAILY [facility] Last Admin: 06/04/19 10:13 Dose: 2 puff A/P Acute COPD Exacerbation Acute Bronchitis h/o RUL Lobectomy CAD Chronic PANCHITO consolidation Hypothyroidism Anemia - prednisone taper - inhaled bronchodilators - azithromycin - O2 to keep SpO2 >90% - DVT prophylaxis
[2019-06-04] MEDS: predniSONE 10 MG TABLET (UD) PO SCH (13:31)
--- NOTE | 2019-06-04 14:53 | PN ---
Progress Note (short form) - Note Progress Note: No new changes. Vital Signs Temperature 98.7 F 06/04/19 14:51 Pulse Rate 78 06/04/19 14:51 Respiratory Rate 20 06/04/19 14:51 Blood Pressure 135/87 06/04/19 14:51 O2 Sat by Pulse Oximetry (%) 100 06/04/19 10:30 GENERAL: The patient is awake, alert, and oriented, cachectic, NAD. HEAD: Normal with no signs of trauma. EYES: PERRL, extraocular movements intact, sclera anicteric, conjunctiva clear. ENT: Ears normal, oropharynx clear without exudates, moist mucous membranes. NECK: Trachea midline, full range of motion, supple. LUNGS: decreased Breath sounds bl, on home oxygen , no wheezes, no crackles, no accessory muscle use. HEART: Regular rate and rhythm, S1, S2 positive, ARTI 2/6 . ABDOMEN: Soft, NT,ND, normoactive bowel sounds, no guarding, no rebound, no hepatosplenomegaly, no masses. EXTREMITIES: 2+ pulses, warm, well-perfused, no edema. NEUROLOGICAL: Cranial nerves II through XII grossly intact. Normal speech, gait not observed. PSYCH: Normal mood, normal affect. SKIN: Warm, dry, normal turgor, no rashes or lesions noted CBCD WBC 11.6 K/mm3 (4.0-10.0) H 06/03/19 07:20 RBC 4.60 M/mm3 (4.00-5.60) 06/03/19 07:20 Hgb 11.2 GM/dL (11.7-16.9) L 06/03/19 07:20 Hct 35.7 % (35.4-49) 06/03/19 07:20 MCV 77.6 fl (80-96) L 06/03/19 07:20 MCHC 31.3 g/dl (32.0-35.9) L 06/03/19 07:20 RDW 19.4 % (11.9-15.9) H 06/03/19 07:20 Plt Count 177 K/MM3 (134-434) 06/03/19 07:20 MPV 9.8 fl (7.5-11.1) 06/03/19 07:20 CMP Sodium 138 mmol/L (136-145) 06/03/19 07:20 Potassium 3.9 mmol/L (3.5-5.1) 06/03/19 07:20 Chloride 101 mmol/L (98-107) 06/03/19 07:20 Carbon Dioxide 31 mmol/L (21-32) 06/03/19 07:20 Anion Gap 6 MMOL/L (8-16) L 06/03/19 07:20 BUN 14.7 mg/dL (7-18) 06/03/19 07:20 Creatinine 0.5 mg/dL (0.55-1.3) L 06/03/19 07:20 Random Glucose 103 mg/dL (74-106) 06/03/19 07:20 Calcium 8.2 mg/dL (8.5-10.1) L 06/03/19 07:20 Total Bilirubin 0.4 mg/dL (0.2-1) 05/31/19 06:00 AST 7 U/L (15-37) L 05/31/19 06:00 ALT 12 U/L (13-61) L 05/31/19 06:00 Alkaline Phosphatase 195 U/L (45-117) H 05/31/19 06:00 Total Protein 6.5 g/dl (6.4-8.2) 05/31/19 06:00 Albumin 3.4 g/dl (3.4-5.0) 05/31/19 06:00 CARDIAC ENZYMES Troponin I < 0.02 ng/ml (0.00-0.05) 05/30/19 20:10 Current Medications Generic Name Dose Route Start Last Admin Trade Name Fernando PRN Reason Stop Dose Admin Albuterol Sulfate 1 amp 05/31/19 16:32 Ventolin 0.083% Nebulizer Soln - NEB Q6H PRN SHORT OF BREATH/WHEEZING Aspirin 81 mg 05/31/19 10:00 06/04/19 10:10 Asa - PO 81 mg DAILY [facility] Administration Atorvastatin Calcium 10 mg 05/31/19 22:00 06/03/19 22:13 Lipitor - PO 10 mg HS [facility] Administration Azithromycin 250 mg 06/03/19 10:00 06/04/19 10:09 Zithromax - PO 250 mg DAILY [facility] Administration Budesonide/Formoterol Fumarate 1 puff 05/31/19 10:00 06/04/19 10:13 Symbicort 160/4.5mcg - IH 1 puff BID [facility] Administration Diltiazem HCl 120 mg 05/31/19 10:00 06/04/19 13:32 Cardizem Cd - PO 120 mg DAILY [facility] Administration Docusate Sodium 100 mg 06/01/19 17:15 06/04/19 10:10 Colace - PO Not Given DAILY [facility] Ferrous Sulfate 325 mg 06/01/19 17:15 06/04/19 10:09 Feosol - PO 325 mg DAILY [facility] Administration Heparin Sodium (Porcine) 5,000 unit 05/31/19 06:00 06/04/19 13:32 Heparin - SQ Not Given TID [facility] Montelukast Sodium 10 mg 05/31/19 22:00 06/03/19 22:13 Singulair - PO 10 mg HS [facility] Administration Pantoprazole Sodium 40 mg 05/31/19 07:00 06/04/19 06:41 Protonix - PO 40 mg ACBK [facility] Administration Phenytoin Sodium 100 mg 05/31/19 10:00 06/04/19 10:10 Dilantin - PO 100 mg BID [facility] Administration Prednisone 30 mg 06/04/19 13:00 06/04/19 13:31 Deltasone - PO 30 mg DAILY [facility] Administration Tiotropium [place] 2 puff 06/01/19 10:00 06/04/19 10:13 Spiriva Respimat IH 2 puff DAILY [facility] Administration Home Medications Medication Instructions Recorded Phenytoin Na Extended [Dilantin -] 100 mg PO BID 06/11/14 Montelukast Na [Singulair -] 10 mg PO HS #90 tablet 06/15/14 Simvastatin [Zocor -] 20 mg PO HS #90 06/15/14 Guaifenesin Dm [Robitussin Dm -] 10 ml PO Q4H PRN cup 10/25/18 Diltiazem Cd [Cardizem Cd -] 120 mg PO DAILY cap.cd.24h 01/11/19 Albuterol 0.083% Nebulizer Arlyn 1 amp NEB RQID PRN 04/17/19 [Ventolin 0.083% Nebulizer Soln -] Albuterol 2.5/Ipratropium 0.5 1 amp NEB RQID PRN 04/17/19 [Duoneb -] Acetaminophen [Tylenol .Regular 650 mg PO Q8H PRN tablet 04/23/19 Strength -] Aspirin 81 mg PO DAILY 05/30/19 Esomeprazole Magnesium [Nexium 40 mg PO DAILY 05/30/19 24Hr] Fexofenadine/Pseudoephedrine 1 each PO BID PRN 05/30/19 [Kalpana-D 12 Hour Tablet] Levalbuterol Tartrate [Xopenex Hfa] 15 gm IH DAILY 05/30/19 Tiotropium [place] [Spiriva] 18 mcg IH DAILY 05/30/19 Fluticasone/Salmeterol [Advair 1 each IH DAILY #1 blst.w.dev 06/03/19 250-50 Diskus] Prednisone See Taper PO DAILY #30 tablet 06/03/19 ASSESSMENT AND PLAN: Patient is a 73yo male with PMHx of COPD, on 2 L of O2 at home, CAD, s/p PCI and stents, HTN, seizures, HLP, and GERD who presented with SOB . He was found to have acute COPD exacerbation. # Acute COPD exacerbation: with h/o RUL Lobectomy continue; continue IV steroids ,dc spiriva while on Duo-Nebs , cont Symbicort, SW working on his home O2 supplies ;O2 to keep SpO2 >90% # Acute Bronchitis: on po zithromax 250mg continue # Malnourished with BMI of 14k , nutrition consult #Hx of seizures: continue home meds #CAD : cont meds #Chronic PANCHITO consolidation #Hypothyroidism: not on any thyroid meds. will get TSH, FT4 #Anemia: stable DVT PX : heparin PT eval sr. social media & mobile manager on the case , patient has home oxygen Visit type - Emergency Visit Emergency Visit: Yes ED Registration Date: 05/30/19 Care time: The patient presented to the Emergency Department on the above date and was hospitalized for further evaluation of their emergent condition. - New Patient This patient is new to me today: No - Critical Care Critical Care patient: No - Discharge Referral Referred to [facility] Med P.C.: No
[2019-06-04] MEDS: ALBUTEROL SO4 0.083% IH SOL 2.5 MG/3 ML VIAL.NEB. NEB PRN (21:00)
[2019-06-04] MEDS: ATORVASTATIN CA 10 MG TABLET (FP) PO SCH (22:04)
[2019-06-04] MEDS: MONTELUKAST NA 10 MG TABLET PO SCH (22:04)
[2019-06-05] MEDS: HEPARIN NA (PORCINE) 5,000 UNITS/ML 1ML VIAL SQ SCH ×3 (06:55→21:40)
[2019-06-05] MEDS: PANTOPRAZOLE 40 MG TABLET (FP) PO SCH (06:56)
[2019-06-05] MEDS: AZITHROMYCIN 250 MG TABLET PO SCH (10:08)
[2019-06-05] MEDS: DOCUSATE SODIUM 100 MG CAPSULE (FP) PO SCH (10:08)
[2019-06-05] MEDS: ASPIRIN 81 MG CHEWABLE TABLETS PO SCH (10:08)
[2019-06-05] MEDS: PHENYTOIN NA EXTENDED 100 MG CAPSULE (FP) PO SCH ×2 (10:08→21:40)
[2019-06-05] MEDS: FERROUS SO4 325 MG TABLET (FP) PO SCH (10:08)
[2019-06-05] MEDS: predniSONE 10 MG TABLET (UD) PO SCH (10:08)
[2019-06-05] MEDS: BUDESONIDE/FORMETEROL FUMARATE 160/4.5 mcg INHALER IH SCH ×2 (10:09→21:41)
[2019-06-05] MEDS: TIOTROPIUM BROMIDE 2.5 MCG (SPIRIVA) RESPIMAT INHALER IH SCH (10:09)
--- NOTE | 2019-06-05 12:17 | PN ---
Progress Note (short form) - Note Progress Note: PULMONARY Breathing about the same, cough with white sputum. Vital Signs Period Temp Pulse Resp BP Sys/Fernández Pulse Ox Last 24 Hr 97.2 F-98.7 F 78-87 18-20 107-135/61-87 96 Gen: NAD at rest Heart: RRR Lung: scattered rhonchi, wheezes Abd: soft, nontender Ext: no edema CBC, BMP 06/03/19 07:20 06/03/19 07:20 Active Medications Albuterol Sulfate (Ventolin 0.083% Nebulizer Soln -) 1 amp NEB Q6H PRN PRN Reason: SHORT OF BREATH/WHEEZING Last Admin: 06/04/19 21:00 Dose: 1 amp Aspirin (Asa -) 81 mg PO DAILY [facility] Last Admin: 06/05/19 10:08 Dose: 81 mg Atorvastatin Calcium (Lipitor -) 10 mg PO HS [facility] Last Admin: 06/04/19 22:04 Dose: 10 mg Azithromycin (Zithromax -) 250 mg PO DAILY [facility] Last Admin: 06/05/19 10:08 Dose: 250 mg Budesonide/Formoterol Fumarate (Symbicort 160/4.5mcg -) 1 puff IH BID [facility] Last Admin: 06/05/19 10:09 Dose: 1 puff Diltiazem HCl (Cardizem Cd -) 120 mg PO DAILY [facility] Last Admin: 06/05/19 10:08 Dose: 120 mg Docusate Sodium (Colace -) 100 mg PO DAILY [facility] Last Admin: 06/05/19 10:08 Dose: 100 mg Ferrous Sulfate (Feosol -) 325 mg PO DAILY [facility] Last Admin: 06/05/19 10:08 Dose: 325 mg Heparin Sodium (Porcine) (Heparin -) 5,000 unit SQ TID [facility] Last Admin: 06/05/19 06:55 Dose: Not Given Montelukast Sodium (Singulair -) 10 mg PO HS [facility] Last Admin: 06/04/19 22:04 Dose: 10 mg Pantoprazole Sodium (Protonix -) 40 mg PO ACBK [facility] Last Admin: 06/05/19 06:56 Dose: 40 mg Phenytoin Sodium (Dilantin -) 100 mg PO BID [facility] Last Admin: 06/05/19 10:08 Dose: 100 mg Prednisone (Deltasone -) 30 mg PO DAILY [facility] Last Admin: 06/05/19 10:08 Dose: 30 mg Tiotropium Margaret (Spiriva Respimat) 2 puff IH DAILY [facility] Last Admin: 06/05/19 10:09 Dose: 2 puff A/P Acute COPD Exacerbation Acute Bronchitis h/o RUL Lobectomy CAD Chronic PANCHITO consolidation Hypothyroidism Anemia - prednisone taper - inhaled bronchodilators - azithromycin - O2 to keep SpO2 >90% - DVT prophylaxis - d/c planning
--- NOTE | 2019-06-05 12:26 | PN ---
Physical Exam: SUBJECTIVE: Patient seen and examined. Pt. states that he feels worried about going home today because he does not have nursing aids on weekends. Pt. denies any new complaints. Pt. endorses white sputum production that has not changed since admission. OBJECTIVE: Vital Signs Period Temp Pulse Resp BP Sys/Fernández Pulse Ox Last 24 Hr 97.2 F-98.7 F 78-87 18-20 107-135/61-87 96 GENERAL: Cachectic elderly male lying in bed. AOx3. HEENT: Dry mucous membranes. LUNGS: on 2LNC, lungs sound clear to ascultation bilaterally, no accessory muscle use HEART: Regular rate and rhythm, normal S1 and S2 without murmurs UPPER EXTREMITIES: 2+ pulses, warm, well-perfused. No peripheral edema. LOWER EXTREMITIES: 2+ pulses, warm, no calf tenderness well-perfused. No peripheral edema. PSYCHIATRIC: Appropriate mood and affect. SKIN: Dry skin b/l UE and LE. R knee has healing scab Home Medications Medication Instructions Recorded Phenytoin Na Extended [Dilantin -] 100 mg PO BID 06/11/14 Montelukast Na [Singulair -] 10 mg PO HS #90 tablet 06/15/14 Simvastatin [Zocor -] 20 mg PO HS #90 06/15/14 Guaifenesin Dm [Robitussin Dm -] 10 ml PO Q4H PRN cup 10/25/18 Diltiazem Cd [Cardizem Cd -] 120 mg PO DAILY cap.cd.24h 01/11/19 Albuterol 0.083% Nebulizer Arlyn 1 amp NEB RQID PRN 04/17/19 [Ventolin 0.083% Nebulizer Soln -] Albuterol 2.5/Ipratropium 0.5 1 amp NEB RQID PRN 04/17/19 [Duoneb -] Acetaminophen [Tylenol .Regular 650 mg PO Q8H PRN tablet 04/23/19 Strength -] Aspirin 81 mg PO DAILY 05/30/19 Esomeprazole Magnesium [Nexium 40 mg PO DAILY 05/30/19 24Hr] Fexofenadine/Pseudoephedrine 1 each PO BID PRN 05/30/19 [Kalpana-D 12 Hour Tablet] Levalbuterol Tartrate [Xopenex Hfa] 15 gm IH DAILY 05/30/19 Tiotropium [place] [Spiriva] 18 mcg IH DAILY 05/30/19 Fluticasone/Salmeterol [Advair 1 each IH DAILY #1 blst.w.dev 06/03/19 250-50 Diskus] Prednisone See Taper PO DAILY #30 tablet 06/03/19 Active Medications Current Medications Albuterol Sulfate (Ventolin 0.083% Nebulizer Soln -) 1 amp NEB Q6H PRN PRN Reason: SHORT OF BREATH/WHEEZING Last Admin: 06/04/19 21:00 Dose: 1 amp Aspirin (Asa -) 81 mg PO DAILY [facility] Last Admin: 06/05/19 10:08 Dose: 81 mg Atorvastatin Calcium (Lipitor -) 10 mg PO HS [facility] Last Admin: 06/04/19 22:04 Dose: 10 mg Azithromycin (Zithromax -) 250 mg PO DAILY [facility] Last Admin: 06/05/19 10:08 Dose: 250 mg Budesonide/Formoterol Fumarate (Symbicort 160/4.5mcg -) 1 puff IH BID [facility] Last Admin: 06/05/19 10:09 Dose: 1 puff Diltiazem HCl (Cardizem Cd -) 120 mg PO DAILY [facility] Last Admin: 06/05/19 10:08 Dose: 120 mg Docusate Sodium (Colace -) 100 mg PO DAILY [facility] Last Admin: 06/05/19 10:08 Dose: 100 mg Ferrous Sulfate (Feosol -) 325 mg PO DAILY [facility] Last Admin: 06/05/19 10:08 Dose: 325 mg Heparin Sodium (Porcine) (Heparin -) 5,000 unit SQ TID [facility] Last Admin: 06/05/19 06:55 Dose: Not Given Montelukast Sodium (Singulair -) 10 mg PO HS [facility] Last Admin: 06/04/19 22:04 Dose: 10 mg Pantoprazole Sodium (Protonix -) 40 mg PO ACBK [facility] Last Admin: 06/05/19 06:56 Dose: 40 mg Phenytoin Sodium (Dilantin -) 100 mg PO BID [facility] Last Admin: 06/05/19 10:08 Dose: 100 mg Prednisone (Deltasone -) 30 mg PO DAILY [facility] Last Admin: 06/05/19 10:08 Dose: 30 mg Tiotropium [place] (Spiriva Respimat) 2 puff IH DAILY [facility] Last Admin: 06/05/19 10:09 Dose: 2 puff ASSESSMENT/PLAN: 73 y.o. PMH COPD chronic bronchitis (w/ recent admission for COPD exacerbation discharged 04/23/19) on 2L home O2, HTN, HLD, pulm HTN, CAD, seizure disorder, GERD presenting with SOB x 2 days found to have acute COPD exacerbation #COPD acute bronchitis exacerbation - Pulmonology, Dr. Mo, evaluated patient, appreciate recommendations - continue ventolin inhaler - continue singulair - continue Spiriva - continue symbicort - continue azithromycin TIW - increase solumed to 40IV Q8H to manage inflammation, titrate down as needed - continue O2NC prn - Per pulm, pt maybe a candidate for daliresp as outpt #Microcytic anemia -F/u FOBT -F/u outpatient for colonoscopy -Started PO iron supplementation and colace #Isolated alk phos -F/u RUQ U/s > showing mild fatty infiltrate, no acute process #CAD -C/w aspirin 81mg daily #HTN -C/w diltiazem 120mg daily -Monitor vitals #HLD -C/w simvastatin 20mg daily #Seizure d/o -C/w dilantin 100mg PO BID #DVT PPX -Heparin 5000 SQ TID -Protonix 40mg PO daily #FEN -No standing fluids -Monitor lytes -Sodium controlled diet -recommend DEXA scan outpatient d/t thin stature and likely osteoporosis seen on XR #Dispo-Discharged. Pt. lost discharge appeal. Visit type - Emergency Visit Emergency Visit: Yes ED Registration Date: 05/30/19 Care time: The patient presented to the Emergency Department on the above date and was hospitalized for further evaluation of their emergent condition. - New Patient This patient is new to me today: No - Critical Care Critical Care patient: No - Discharge Referral Referred to [facility] Med P.C.: No ATTENDING PHYSICIAN STATEMENT I saw and evaluated the patient. I reviewed the resident's note and discussed the case with the resident. I agree with the resident's findings and plan as documented. SUBJECTIVE: OBJECTIVE: ASSESSMENT AND PLAN:
[2019-06-05] MEDS ORDERED: ACETAMINOPHEN 325 MG TABLET (FP) PO ONE (14:48)
--- NOTE | 2019-06-05 15:30 | PN ---
Teaching Attending Note Name of Resident: Matt Mancuso ATTENDING PHYSICIAN STATEMENT I saw and evaluated the patient. I reviewed the resident's note and discussed the case with the resident. I agree with the resident's findings and plan as documented. SUBJECTIVE: Patient is comfortable with no acute distress. OBJECTIVE: Vital Signs Temperature 97.4 F L 06/05/19 13:59 Pulse Rate 62 06/05/19 10:00 Respiratory Rate 20 06/05/19 10:00 Blood Pressure 113/62 06/05/19 10:00 O2 Sat by Pulse Oximetry (%) 94 L 06/05/19 09:00 GENERAL: The patient is awake, alert, and oriented, cachectic, NAD. HEAD: Normal with no signs of trauma. EYES: PERRL, extraocular movements intact, sclera anicteric, conjunctiva clear. ENT: Ears normal, oropharynx clear without exudates, moist mucous membranes. NECK: Trachea midline, full range of motion, supple. LUNGS: decreased Breath sounds bl, on home oxygen , no wheezes, no crackles, no accessory muscle use. HEART: Regular rate and rhythm, S1, S2 positive, ARTI 2/6 . ABDOMEN: Soft, NT,ND, normoactive bowel sounds, no guarding, no rebound, no hepatosplenomegaly, no masses. EXTREMITIES: 2+ pulses, warm, well-perfused, no edema. NEUROLOGICAL: Cranial nerves II through XII grossly intact. Normal speech, gait not observed. PSYCH: Normal mood, normal affect. SKIN: Warm, dry, normal turgor, no rashes or lesions noted CBCD WBC 11.6 K/mm3 (4.0-10.0) H 06/03/19 07:20 RBC 4.60 M/mm3 (4.00-5.60) 06/03/19 07:20 Hgb 11.2 GM/dL (11.7-16.9) L 06/03/19 07:20 Hct 35.7 % (35.4-49) 06/03/19 07:20 MCV 77.6 fl (80-96) L 06/03/19 07:20 MCHC 31.3 g/dl (32.0-35.9) L 06/03/19 07:20 RDW 19.4 % (11.9-15.9) H 06/03/19 07:20 Plt Count 177 K/MM3 (134-434) 06/03/19 07:20 MPV 9.8 fl (7.5-11.1) 06/03/19 07:20 CMP Sodium 138 mmol/L (136-145) 06/03/19 07:20 Potassium 3.9 mmol/L (3.5-5.1) 06/03/19 07:20 Chloride 101 mmol/L (98-107) 06/03/19 07:20 Carbon Dioxide 31 mmol/L (21-32) 06/03/19 07:20 Anion Gap 6 MMOL/L (8-16) L 06/03/19 07:20 BUN 14.7 mg/dL (7-18) 06/03/19 07:20 Creatinine 0.5 mg/dL (0.55-1.3) L 06/03/19 07:20 Random Glucose 103 mg/dL (74-106) 06/03/19 07:20 Calcium 8.2 mg/dL (8.5-10.1) L 06/03/19 07:20 Total Bilirubin 0.4 mg/dL (0.2-1) 05/31/19 06:00 AST 7 U/L (15-37) L 05/31/19 06:00 ALT 12 U/L (13-61) L 05/31/19 06:00 Alkaline Phosphatase 195 U/L (45-117) H 05/31/19 06:00 Total Protein 6.5 g/dl (6.4-8.2) 05/31/19 06:00 Albumin 3.4 g/dl (3.4-5.0) 05/31/19 06:00 CARDIAC ENZYMES Troponin I < 0.02 ng/ml (0.00-0.05) 05/30/19 20:10 Current Medications Generic Name Dose Route Start Last Admin Trade Name Freq PRN Reason Stop Dose Admin Albuterol Sulfate 1 amp 05/31/19 16:32 06/04/19 21:00 Ventolin 0.083% Nebulizer Soln - NEB 1 amp Q6H PRN Administration SHORT OF BREATH/WHEEZING Aspirin 81 mg 05/31/19 10:00 06/05/19 10:08 Asa - PO 81 mg DAILY EUNICE Administration Atorvastatin Calcium 10 mg 05/31/19 22:00 06/04/19 22:04 Lipitor - PO 10 mg HS EUNICE Administration Azithromycin 250 mg 06/03/19 10:00 06/05/19 10:08 Zithromax - PO 250 mg DAILY E[facility]ICE Administration Budesonide/Formoterol Fumarate 1 puff 05/31/19 10:00 06/05/19 10:09 Symbicort 160/4.5mcg - IH 1 puff BID EUNICE Administration Diltiazem HCl 120 mg 05/31/19 10:00 06/05/19 10:08 Cardizem Cd - PO 120 mg DAILY EUNICE Administration Docusate Sodium 100 mg 06/01/19 17:15 06/05/19 10:08 Colace - PO 100 mg DAILY EUNICE Administration Ferrous Sulfate 325 mg 06/01/19 17:15 06/05/19 10:08 Feosol - PO 325 mg DAILY E[facility]ICE Administration Heparin Sodium (Porcine) 5,000 unit 05/31/19 06:00 06/05/19 14:28 Heparin - SQ Not Given TID EUNICE Montelukast Sodium 10 mg 05/31/19 22:00 06/04/19 22:04 Singulair - PO 10 mg HS EUNICE Administration Pantoprazole Sodium 40 mg 05/31/19 07:00 06/05/19 06:56 Protonix - PO 40 mg ACBK EUNICE Administration Phenytoin Sodium 100 mg 05/31/19 10:00 06/05/19 10:08 Dilantin - PO 100 mg BID EUNICE Administration Prednisone 30 mg 06/04/19 13:00 06/05/19 10:08 Deltasone - PO 30 mg DAILY [facility]ICE Administration Tiotropium [place] 2 puff 06/01/19 10:00 06/05/19 10:09 Spiriva Respimat IH 2 puff DAILY [facility] Administration Home Medications Medication Instructions Recorded Phenytoin Na Extended [Dilantin -] 100 mg PO BID 06/11/14 Montelukast Na [Singulair -] 10 mg PO HS #90 tablet 06/15/14 Simvastatin [Zocor -] 20 mg PO HS #90 06/15/14 Guaifenesin Dm [Robitussin Dm -] 10 ml PO Q4H PRN cup 10/25/18 Diltiazem Cd [Cardizem Cd -] 120 mg PO DAILY cap.cd.24h 01/11/19 Albuterol 0.083% Nebulizer Arlyn 1 amp NEB RQID PRN 04/17/19 [Ventolin 0.083% Nebulizer Soln -] Albuterol 2.5/Ipratropium 0.5 1 amp NEB RQID PRN 04/17/19 [Duoneb -] Acetaminophen [Tylenol .Regular 650 mg PO Q8H PRN tablet 04/23/19 Strength -] Aspirin 81 mg PO DAILY 05/30/19 Esomeprazole Magnesium [Nexium 40 mg PO DAILY 05/30/19 24Hr] Fexofenadine/Pseudoephedrine 1 each PO BID PRN 05/30/19 [Kalpana-D 12 Hour Tablet] Levalbuterol Tartrate [Xopenex Hfa] 15 gm IH DAILY 05/30/19 Tiotropium [place] [Spiriva] 18 mcg IH DAILY 05/30/19 Fluticasone/Salmeterol [Advair 1 each IH DAILY #1 blst.w.dev 06/03/19 250-50 Diskus] Prednisone See Taper PO DAILY #30 tablet 06/03/19 ASSESSMENT AND PLAN: Patient is a 73yo male with PMHx of COPD, on 2 L of O2 at home, CAD, s/p PCI and stents, HTN, seizures, HLP, and GERD who presented with SOB . He was found to have acute COPD exacerbation. # Acute COPD exacerbation: with h/o RUL Lobectomy continue IV steroids ,dc spiriva while on Duo-Nebs , cont Symbicort, SW working on his home O2 supplies ; O2 to keep SpO2 >90% # Acute Bronchitis: on po zithromax 250mg continue # Malnourished with BMI of 14k , nutrition consult #Hx of seizures: continue home meds #CAD : cont meds #Chronic PANCHITO consolidation #Hypothyroidism: not on any thyroid meds. will get TSH, FT4 #Anemia: stable DVT PX : heparin PT eval community mental health social worker on the case , patient has home oxygen follow TSh, Ft4
[2019-06-05] MEDS: ALBUTEROL SO4 0.083% IH SOL 2.5 MG/3 ML VIAL.NEB. NEB PRN ×2 (18:50→22:00)
[2019-06-05] MEDS ORDERED: RANITIDINE HCL 150 MG TABLET (FP) PO ONE (21:15)
[2019-06-05] MEDS: MONTELUKAST NA 10 MG TABLET PO SCH (21:40)
[2019-06-05] MEDS: ATORVASTATIN CA 10 MG TABLET (FP) PO SCH (21:40)
--- NOTE | 2019-06-06 00:10 | PN ---
Progress Note (short form) - Note Progress Note: 73 y.o. M PMH chronic bronchitis (w/ recent admission for COPD exacerbation discharged 04/23/19) on 2L home O2, HTN, HLD, pulm HTN, CAD, seizure disorder, GERD admitted for acute COPD exacerbation--Patient was discharged 06/03/19 (2 days ago) but has been appealing d/c. [facility] patient complains of new onset 10/ 10 epigastric pain. The pain started a few minutes after eating dinner. The pain is sharp, localized to epigastrium not improved by sitting up or changing positions. Patient tried tylenol to ease the pain with no relief. Considering pt's history of GERD, ordered 150mg PO ranitidine-- pt had no relief of symptoms after 1 hour. Ordered: CBC, CMP, EKG, tropx1, CXR, and abd XR CBC shows incr WBC but pt is on steroids; EKG unchanged from prior; neg trop CXR appears unchanged from prior study Abd XR shows stool present throughout bowel VS: BP 156/59 87 18 97% Physical exam: General: Cachectic elderly male. Lying in bed in mild distress d/t abdominal discomfort. Cardio: S1S2 heard no murmurs Resp: CTABL Abdomen: +guarding. Tender to palpation @ epigastrium. Mild distention. Bowel sounds present. Extr: No edema noted #Constipation -Abd XR showing stool present throughout bowel -Patient has had 1 large bowel movement today-- sent for FOBT -Ordered senna -C/w Colace
[2019-06-06] MEDS ORDERED: ACETAMINOPHEN 325 MG TABLET (FP) PO ONE (00:15)
[2019-06-06] MEDS ORDERED: oxyCODONE HCL 5 MG TABLET PO ONE (00:15)
[2019-06-06 01:04] LABS: HEMOGLOBIN 10.9 GM/dL (11.7-16.9); MCH 24.5 pg (25.7-33.7); MCHC 31.3 g/dl (32.0-35.9); MEAN CELL VOLUME 78.3 fl (80-96); MEAN PLT VOLUME 9.8 fl (7.5-11.1); PLATELET COUNT 188 K/MM3 (134-434); RBC 4.47 M/mm3 (4.00-5.60); RDW 19.7 % (11.9-15.9); WHITE BLOOD COUNT 14.1 K/mm3 (4.0-10.0)
[2019-06-06 02:15] LABS: ALBUMIN 3.7 g/dl (3.4-5.0); ALK PHOS 140 U/L (45-117); ANION GAP 8 MMOL/L (8-16); BILIRUBIN,TOTAL 0.1 mg/dL (0.2-1); BLOOD UREA NITROGEN 20.4 mg/dL (7-18); CALCIUM 8.5 mg/dL (8.5-10.1); CHLORIDE 100 mmol/L (98-107); CO2 30 mmol/L (21-32); CREATININE 0.6 mg/dL (0.55-1.3); GLUCOSE,RANDOM 115 mg/dL (74-106); POTASSIUM 4.5 mmol/L (3.5-5.1); SGOT/AST 48 U/L (15-37); SGPT/ALT 60 U/L (13-61); SODIUM 137 mmol/L (136-145); TOT PROT 6.9 g/dl (6.4-8.2)
[2019-06-06] MEDS: HEPARIN NA (PORCINE) 5,000 UNITS/ML 1ML VIAL SQ SCH ×3 (07:02→23:19)
[2019-06-06] MEDS: PANTOPRAZOLE 40 MG TABLET (FP) PO SCH (07:03)
[2019-06-06] MEDS ORDERED: PT OWN MED DRAWER 7, Y5N ONE ×2 (10:38→14:45)
[2019-06-06] MEDS: PHENYTOIN NA EXTENDED 100 MG CAPSULE (FP) PO SCH ×2 (10:46→23:17)
[2019-06-06] MEDS: FERROUS SO4 325 MG TABLET (FP) PO SCH (10:47)
[2019-06-06] MEDS: SENNOSIDES 8.6MG TABLET (FP) PO SCH ×2 (10:47→23:18)
[2019-06-06] MEDS: ASPIRIN 81 MG CHEWABLE TABLETS PO SCH (10:47)
[2019-06-06] MEDS: AZITHROMYCIN 250 MG TABLET PO SCH (10:47)
[2019-06-06] MEDS: DOCUSATE SODIUM 100 MG CAPSULE (FP) PO SCH ×2 (10:47→23:16)
[2019-06-06] MEDS: TIOTROPIUM BROMIDE 2.5 MCG (SPIRIVA) RESPIMAT INHALER IH SCH (10:47)
[2019-06-06] MEDS: predniSONE 10 MG TABLET (UD) PO SCH (10:47)
[2019-06-06] MEDS: BUDESONIDE/FORMETEROL FUMARATE 160/4.5 mcg INHALER IH SCH ×2 (10:48→23:18)
--- NOTE | 2019-06-06 11:23 | PN ---
Progress Note (short form) - Note Progress Note: Breathing about the same. Some cough with white sputum. Resolving epigastric discomfort. Intake & Output 06/03/19 06/04/19 06/05/19 06/06/19 23:59 23:59 23:59 23:59 Intake Total 1145 365 810 Output Total 250 575 Balance 895 -210 810 Last Vital Signs Temp Pulse Resp BP Pulse Ox 98.2 F 81 18 102/60 98 06/06/19 10:00 06/06/19 10:48 06/06/19 10:48 06/06/19 10:48 06/05/19 21:00 Active Medications Albuterol Sulfate (Ventolin 0.083% Nebulizer Soln -) 1 amp NEB Q6H PRN PRN Reason: SHORT OF BREATH/WHEEZING Last Admin: 06/05/19 22:00 Dose: 1 amp Aspirin (Asa -) 81 mg PO DAILY [facility] Last Admin: 06/06/19 10:47 Dose: 81 mg Atorvastatin Calcium (Lipitor -) 10 mg PO [facility] Last Admin: 06/05/19 21:40 Dose: 10 mg Azithromycin (Zithromax -) 250 mg PO DAILY [facility] Last Admin: 06/06/19 10:47 Dose: 250 mg Budesonide/Formoterol Fumarate (Symbicort 160/4.5mcg -) 1 puff IH BID [facility] Last Admin: 06/06/19 10:48 Dose: 1 puff Diltiazem HCl (Cardizem Cd -) 120 mg PO DAILY [facility] Last Admin: 06/06/19 10:47 Dose: 120 mg Docusate Sodium (Colace -) 100 mg PO DAILY [facility] Last Admin: 06/06/19 10:47 Dose: 100 mg Ferrous Sulfate (Feosol -) 325 mg PO DAILY [facility] Last Admin: 06/06/19 10:47 Dose: 325 mg Heparin Sodium (Porcine) (Heparin -) 5,000 unit SQ TID [facility] Last Admin: 06/06/19 07:02 Dose: Not Given Montelukast Sodium (Singulair -) 10 mg PO HS [facility] Last Admin: 06/05/19 21:40 Dose: 10 mg Pantoprazole Sodium (Protonix -) 40 mg PO ACBK [facility] Last Admin: 06/06/19 07:03 Dose: 40 mg Phenytoin Sodium (Dilantin -) 100 mg PO BID [facility] Last Admin: 06/06/19 10:46 Dose: 100 mg Prednisone (Deltasone -) 30 mg PO DAILY [facility] Last Admin: 06/06/19 10:47 Dose: 30 mg Senna (Senna -) 1 tab PO BID [facility] Last Admin: 06/06/19 10:47 Dose: 1 tab Tiotropium [place] (Spiriva Respimat) 2 puff IH DAILY [facility] Last Admin: 06/06/19 10:47 Dose: 2 puff Gen: NAD at rest Heart: RRR Lung: few scattered rhonchi, No wheezes Abd: soft, nontender Ext: no edema Laboratory Results - last 24 hr 06/06/19 06/06/19 06/06/19 00:30 00:30 01:00 WBC 14.1 H RBC 4.47 Hgb 10.9 L Hct 35.0 L MCV 78.3 L MCH 24.5 L MCHC 31.3 L RDW 19.7 H Plt Count 188 MPV 9.8 Sodium 137 Potassium 4.5 Chloride 100 Carbon Dioxide 30 Anion Gap 8 BUN 20.4 H Creatinine 0.6 Est GFR (CKD-EPI)AfAm 114.80 Est GFR (CKD-EPI)NonAf 99.05 Random Glucose 115 H Calcium 8.5 Total Bilirubin 0.1 L AST 48 H ALT 60 Alkaline Phosphatase 140 H Troponin I < 0.02 Total Protein 6.9 Albumin 3.7 TSH Free T4 Stool Occult Blood Negative 06/06/19 07:50 WBC RBC Hgb Hct MCV MCH MCHC RDW Plt Count MPV Sodium Potassium Chloride Carbon Dioxide Anion Gap BUN Creatinine Est GFR (CKD-EPI)AfAm Est GFR (CKD-EPI)NonAf Random Glucose Calcium Total Bilirubin AST ALT Alkaline Phosphatase Troponin I Total Protein Albumin TSH 5.09 H Free T4 0.73 L Stool Occult Blood A/P Acute COPD Exacerbation Acute Bronchitis h/o RUL Lobectomy CAD Chronic PANCHITO consolidation Hypothyroidism Anemia - prednisone taper - inhaled bronchodilators - azithromycin - O2 to keep SpO2 >90% - DVT prophylaxis - d/c planning Dr Garay
[2019-06-06] MEDS ORDERED: GLYCERIN 1 RECTAL SUPPOSITORY, ADULT RC ONE (13:45)
[2019-06-06] MEDS ORDERED: BISACODYL 10 MG SUPP.RECT RC PRN (16:26)
--- NOTE | 2019-06-06 16:31 | PN ---
Teaching Attending Note Name of Resident: Valeria Cheng ATTENDING PHYSICIAN STATEMENT I saw and evaluated the patient. I reviewed the resident's note and discussed the case with the resident. I agree with the resident's findings and plan as documented. SUBJECTIVE: Patient is c/o having abdominal pain on and off. OBJECTIVE: Vital Signs Temperature 98.5 F 06/06/19 14:12 Pulse Rate 86 06/06/19 14:12 Respiratory Rate 18 06/06/19 14:12 Blood Pressure 110/58 L 06/06/19 14:12 O2 Sat by Pulse Oximetry (%) 92 L 06/06/19 10:00 GENERAL: The patient is awake, alert, and oriented, cachectic, NAD. HEAD: Normal with no signs of trauma. EYES: PERRL, extraocular movements intact, sclera anicteric, conjunctiva clear. ENT: Ears normal, oropharynx clear without exudates, moist mucous membranes. NECK: Trachea midline, full range of motion, supple. LUNGS: decreased Breath sounds bl, on home oxygen , no wheezes, no crackles, no accessory muscle use. HEART: Regular rate and rhythm, S1, S2 positive, ARTI 2/6 . ABDOMEN: Soft, NT,ND, normoactive bowel sounds, no guarding, no rebound, no hepatosplenomegaly, no masses. EXTREMITIES: 2+ pulses, warm, well-perfused, no edema. NEUROLOGICAL: Cranial nerves II through XII grossly intact. Normal speech, gait not observed. PSYCH: Normal mood, normal affect. SKIN: Warm, dry, normal turgor, no rashes or lesions noted CBCD WBC 14.1 K/mm3 (4.0-10.0) H 06/06/19 00:30 RBC 4.47 M/mm3 (4.00-5.60) 06/06/19 00:30 Hgb 10.9 GM/dL (11.7-16.9) L 06/06/19 00:30 Hct 35.0 % (35.4-49) L 06/06/19 00:30 MCV 78.3 fl (80-96) L 06/06/19 00:30 MCHC 31.3 g/dl (32.0-35.9) L 06/06/19 00:30 RDW 19.7 % (11.9-15.9) H 06/06/19 00:30 Plt Count 188 K/MM3 (134-434) 06/06/19 00:30 MPV 9.8 fl (7.5-11.1) 06/06/19 00:30 CMP Sodium 137 mmol/L (136-145) 06/06/19 00:30 Potassium 4.5 mmol/L (3.5-5.1) 06/06/19 00:30 Chloride 100 mmol/L (98-107) 06/06/19 00:30 Carbon Dioxide 30 mmol/L (21-32) 06/06/19 00:30 Anion Gap 8 MMOL/L (8-16) 06/06/19 00:30 BUN 20.4 mg/dL (7-18) H 06/06/19 00:30 Creatinine 0.6 mg/dL (0.55-1.3) 06/06/19 00:30 Random Glucose 115 mg/dL (74-106) H 06/06/19 00:30 Calcium 8.5 mg/dL (8.5-10.1) 06/06/19 00:30 Total Bilirubin 0.1 mg/dL (0.2-1) L 06/06/19 00:30 AST 48 U/L (15-37) H 06/06/19 00:30 ALT 60 U/L (13-61) 06/06/19 00:30 Alkaline Phosphatase 140 U/L (45-117) H 06/06/19 00:30 Total Protein 6.9 g/dl (6.4-8.2) 06/06/19 00:30 Albumin 3.7 g/dl (3.4-5.0) 06/06/19 00:30 CARDIAC ENZYMES Troponin I < 0.02 ng/ml (0.00-0.05) 06/06/19 00:30 Current Medications Generic Name Dose Route Start Last Admin Trade Name Freq PRN Reason Stop Dose Admin Albuterol Sulfate 1 amp 05/31/19 16:32 06/05/19 22:00 Ventolin 0.083% Nebulizer Soln - NEB 1 amp Q6H PRN Administration SHORT OF BREATH/WHEEZING Aspirin 81 mg 05/31/19 10:00 06/06/19 10:47 Asa - PO 81 mg DAILY EUNICE Administration Atorvastatin Calcium 10 mg 05/31/19 22:00 06/05/19 21:40 Lipitor - PO 10 mg HS EUNICE Administration Azithromycin 250 mg 06/03/19 10:00 06/06/19 10:47 Zithromax - PO 250 mg DAILY EUNICE Administration Bisacodyl 10 mg 06/06/19 16:26 Dulcolax Suppository - RC DAILY PRN CONSTIPATION Budesonide/Formoterol Fumarate 1 puff 05/31/19 10:00 06/06/19 10:48 Symbicort 160/4.5mcg - IH 1 puff BID EUNICE Administration Diltiazem HCl 120 mg 05/31/19 10:00 06/06/19 10:47 Cardizem Cd - PO 120 mg DAILY EUNICE Administration Docusate Sodium 300 mg 06/06/19 22:00 Colace - PO HS EUNICE Ferrous Sulfate 325 mg 06/01/19 17:15 06/06/19 10:47 Feosol - PO 325 mg DAILY EUNICE Administration Heparin Sodium (Porcine) 5,000 unit 05/31/19 06:00 06/06/19 14:52 Heparin - SQ 5,000 unit TID EUNICE Administration Montelukast Sodium 10 mg 05/31/19 22:00 06/05/19 21:40 Singulair - PO 10 mg HS EUNICE Administration Pantoprazole Sodium 40 mg 05/31/19 07:00 06/06/19 07:03 Protonix - PO 40 mg ACBK E[facility]ICE Administration Phenytoin Sodium 100 mg 05/31/19 10:00 06/06/19 10:46 Dilantin - PO 100 mg BID EUNICE Administration Prednisone 30 mg 06/04/19 13:00 06/06/19 10:47 Deltasone - PO 30 mg DAILY EUNICE Administration Senna 1 tab 06/06/19 10:00 06/06/19 10:47 Senna - PO 1 tab BID EUNICE Administration Tiotropium [place] 2 puff 06/01/19 10:00 06/06/19 10:47 Spiriva Respimat IH 2 puff DAILY EUNICE Administration Home Medications Medication Instructions Recorded Phenytoin Na Extended [Dilantin -] 100 mg PO BID 06/11/14 Montelukast Na [Singulair -] 10 mg PO HS #90 tablet 06/15/14 Simvastatin [Zocor -] 20 mg PO HS #90 06/15/14 Guaifenesin Dm [Robitussin Dm -] 10 ml PO Q4H PRN cup 10/25/18 Diltiazem Cd [Cardizem Cd -] 120 mg PO DAILY cap.cd.24h 01/11/19 Albuterol 0.083% Nebulizer Arlyn 1 amp NEB RQID PRN 04/17/19 [Ventolin 0.083% Nebulizer Soln -] Albuterol 2.5/Ipratropium 0.5 1 amp NEB RQID PRN 04/17/19 [Duoneb -] Acetaminophen [Tylenol .Regular 650 mg PO Q8H PRN tablet 04/23/19 Strength -] Aspirin 81 mg PO DAILY 05/30/19 Esomeprazole Magnesium [Nexium 40 mg PO DAILY 05/30/19 24Hr] Fexofenadine/Pseudoephedrine 1 each PO BID PRN 05/30/19 [Kalpana-D 12 Hour Tablet] Levalbuterol Tartrate [Xopenex Hfa] 15 gm IH DAILY 05/30/19 Tiotropium [place] [Spiriva] 18 mcg IH DAILY 05/30/19 Fluticasone/Salmeterol [Advair 1 each IH DAILY #1 blst.w.dev 06/03/19 250-50 Diskus] Prednisone See Taper PO DAILY #30 tablet 06/03/19 Laboratory Tests 06/06/19 07:50 TSH 5.09 H Free T4 0.73 L ABx: Ileus, constipation ASSESSMENT AND PLAN: Patient is a 73yo male with PMHx of COPD, on 2 L of O2 at home, CAD, s/p PCI and stents, HTN, seizures, HLP, and GERD who presented with SOB . He was found to have acute COPD exacerbation. # Ileus/constipation: clear liquid diet , monitor, bowel regimen # Acute COPD exacerbation: with h/o RUL Lobectomy continue IV steroids ,dc spiriva while on Duo-Nebs , cont Symbicort, keep SpO2 >90% # Acute Bronchitis: on po zithromax 250mg continue as per # Malnourished with BMI of 14k , nutrition consult appreciated #Hx of seizures: continue home meds #CAD : cont meds #Chronic PANCHITO consolidation #Hypothyroidism: not on any thyroid meds. will start low dose levoxyl 25mcg #Anemia: stable DVT PX : heparin PT eval social media specialist on the case , patient has home oxygen
--- NOTE | 2019-06-06 17:03 | PN ---
Physical Exam: SUBJECTIVE: Patient seen and examined at the bedside, still complaining of abdominal pain. Will obtain abdominal xray today. OBJECTIVE: Vital Signs Period Temp Pulse Resp BP Sys/Fernández Pulse Ox Last 24 Hr 97.7 F-98.5 F 56-90 18-20 99-156/56-70 92-98 Exam limited because patient is refusing to participate fully GENERAL: Cachectic elderly male lying in bed. AOx3. HEENT: Dry mucous membranes. EOMI intact, PERRL LUNGS: on 3LNC, lungs sound clear to ascultation bilaterally, no accessory muscle use HEART: Regular rate and rhythm, normal S1 and S2 without murmurs ABDOMEN: Soft, nontender, not distended UPPER EXTREMITIES: 2+ pulses, warm, well-perfused. No peripheral edema. LOWER EXTREMITIES: 2+ pulses, warm, well-perfused. No peripheral edema. PSYCHIATRIC: Appropriate mood and affect. SKIN: Dry skin b/l UE and LE. R knee has healing scab Laboratory Results - last 24 hr 06/06/19 06/06/19 06/06/19 00:30 00:30 01:00 WBC 14.1 H RBC 4.47 Hgb 10.9 L Hct 35.0 L MCV 78.3 L MCH 24.5 L MCHC 31.3 L RDW 19.7 H Plt Count 188 MPV 9.8 Sodium 137 Potassium 4.5 Chloride 100 Carbon Dioxide 30 Anion Gap 8 BUN 20.4 H Creatinine 0.6 Est GFR (CKD-EPI)AfAm 114.80 Est GFR (CKD-EPI)NonAf 99.05 Random Glucose 115 H Calcium 8.5 Total Bilirubin 0.1 L AST 48 H ALT 60 Alkaline Phosphatase 140 H Troponin I < 0.02 Total Protein 6.9 Albumin 3.7 TSH Free T4 Stool Occult Blood Negative 06/06/19 07:50 WBC RBC Hgb Hct MCV MCH MCHC RDW Plt Count MPV Sodium Potassium Chloride Carbon Dioxide Anion Gap BUN Creatinine Est GFR (CKD-EPI)AfAm Est GFR (CKD-EPI)NonAf Random Glucose Calcium Total Bilirubin AST ALT Alkaline Phosphatase Troponin I Total Protein Albumin TSH 5.09 H Free T4 0.73 L Stool Occult Blood Active Medications Generic Name Dose Route Start Last Admin Trade Name Freq PRN Reason Stop Dose Admin Albuterol Sulfate 1 amp 05/31/19 16:32 06/05/19 22:00 Ventolin 0.083% Nebulizer Soln - NEB 1 amp Q6H PRN Administration SHORT OF BREATH/WHEEZING Aspirin 81 mg 05/31/19 10:00 06/06/19 10:47 Asa - PO 81 mg DAILY EUNICE Administration Atorvastatin Calcium 10 mg 05/31/19 22:00 06/05/19 21:40 Lipitor - PO 10 mg HS EUNICE Administration Azithromycin 250 mg 06/03/19 10:00 06/06/19 10:47 Zithromax - PO 250 mg DAILY EUNICE Administration Bisacodyl 10 mg 06/06/19 16:26 Dulcolax Suppository - RC DAILY PRN CONSTIPATION Budesonide/Formoterol Fumarate 1 puff 05/31/19 10:00 06/06/19 10:48 Symbicort 160/4.5mcg - IH 1 puff BID EUNICE Administration Diltiazem HCl 120 mg 05/31/19 10:00 06/06/19 10:47 Cardizem Cd - PO 120 mg DAILY EUNICE Administration Docusate Sodium 300 mg 06/06/19 22:00 Colace - PO HS EUNICE Ferrous Sulfate 325 mg 06/01/19 17:15 06/06/19 10:47 Feosol - PO 325 mg DAILY EUNICE Administration Heparin Sodium (Porcine) 5,000 unit 05/31/19 06:00 06/06/19 14:52 Heparin - SQ 5,000 unit TID EUNICE Administration Montelukast Sodium 10 mg 05/31/19 22:00 06/05/19 21:40 Singulair - PO 10 mg HS EUNICE Administration Pantoprazole Sodium 40 mg 05/31/19 07:00 06/06/19 07:03 Protonix - PO 40 mg ACBK EUNICE Administration Phenytoin Sodium 100 mg 05/31/19 10:00 06/06/19 10:46 Dilantin - PO 100 mg BID EUNICE Administration Prednisone 30 mg 06/04/19 13:00 06/06/19 10:47 Deltasone - PO 30 mg DAILY EUNICE Administration Senna 1 tab 06/06/19 10:00 06/06/19 10:47 Senna - PO 1 tab BID EUNICE Administration Tiotropium [place] 2 puff 06/01/19 10:00 06/06/19 10:47 Spiriva Respimat IH 2 puff DAILY EUNICE Administration ASSESSMENT/PLAN: 73 y.o. PMH COPD chronic bronchitis (w/ recent admission for COPD exacerbation discharged 04/23/19) on 2L home O2, HTN, HLD, pulm HTN, CAD, seizure disorder, GERD presenting with SOB x 2 days found to have acute COPD exacerbation #COPD acute bronchitis exacerbation - Pulmonology, Dr. Mo, evaluated patient, appreciate recommendations - continue ventolin inhaler - continue singulair - continue Spiriva - continue symbicort - continue azithromycin TIW - increase solumed to 40IV Q8H to manage inflammation, titrate down as needed - continue O2NC prn - Per pulm, pt maybe a candidate for daliresp as outpt # Severe malnutrition On physical exam Mr. Desir is extremely cachectic. His BMI is 13.7, the acute dialysis registered nurse was consulted. The patient refused supplements with ensure and so frequent snacks were recommended. I spoke to the patient about increasing his caloric consumption and he refused any snacks or supplementation. # Abdominal Pain - will f/u abdominal x-ray #Microcytic anemia -F/u FOBT -F/u outpatient for colonoscopy -Started PO iron supplementation and colace #Isolated alk phos -F/u RUQ U/s > showing mild fatty infiltrate, no acute process #CAD -C/w aspirin 81mg daily #HTN -C/w diltiazem 120mg daily -Monitor vitals #HLD -C/w simvastatin 20mg daily #Seizure d/o -C/w dilantin 100mg PO BID #DVT PPX -Heparin 5000 SQ TID -Protonix 40mg PO daily #FEN -No standing fluids -Monitor lytes -Sodium controlled diet -recommend DEXA scan outpatient d/t thin stature and likely osteoporosis seen on XR #Dispo-Discharged. Pt. lost discharge appeal. Visit type - Emergency Visit Emergency Visit: Yes ED Registration Date: 05/30/19 Care time: The patient presented to the Emergency Department on the above date and was hospitalized for further evaluation of their emergent condition. - New Patient This patient is new to me today: No - Critical Care Critical Care patient: No - Discharge Referral Referred to [facility] No ATTENDING PHYSICIAN STATEMENT I saw and evaluated the patient. I reviewed the resident's note and discussed the case with the resident. I agree with the resident's findings and plan as documented. SUBJECTIVE: OBJECTIVE: ASSESSMENT AND PLAN:
[2019-06-06] MEDS: MONTELUKAST NA 10 MG TABLET PO SCH (23:17)
[2019-06-06] MEDS: ATORVASTATIN CA 10 MG TABLET (FP) PO SCH (23:18)
[2019-06-07] MEDS: PANTOPRAZOLE 40 MG TABLET (FP) PO SCH (06:40)
[2019-06-07] MEDS: HEPARIN NA (PORCINE) 5,000 UNITS/ML 1ML VIAL SQ SCH ×3 (06:41→22:04)
[2019-06-07] MEDS: LEVOTHYROXINE NA 25 MCG TABLET (FP) PO SCH (06:41)
--- NOTE | 2019-06-07 10:12 | PN ---
Progress Note (short form) - Note Progress Note: Breathing about the same. Some cough with white sputum. Still with intermittent non-specific abdominal discomfort. Intake & Output 06/04/19 06/05/19 06/06/19 06/07/19 23:59 23:59 23:59 23:59 Intake Total 365 810 240 0 Output Total 575 800 Balance -210 810 -560 0 Last Vital Signs Temp Pulse Resp BP Pulse Ox 97.3 F L 68 18 132/71 95 06/07/19 04:00 06/07/19 04:00 06/07/19 04:00 06/07/19 04:00 06/06/19 21:00 Active Medications Albuterol Sulfate (Ventolin 0.083% Nebulizer Soln -) 1 amp NEB Q6H PRN PRN Reason: SHORT OF BREATH/WHEEZING Last Admin: 06/05/19 22:00 Dose: 1 amp Aspirin (Asa -) 81 mg PO DAILY [facility] Last Admin: 06/06/19 10:47 Dose: 81 mg Atorvastatin Calcium (Lipitor -) 10 mg PO HS [facility] Last Admin: 06/06/19 23:18 Dose: 10 mg Azithromycin (Zithromax -) 250 mg PO DAILY [facility] Last Admin: 06/06/19 10:47 Dose: 250 mg Bisacodyl (Dulcolax Suppository -) 10 mg RC DAILY PRN PRN Reason: CONSTIPATION Budesonide/Formoterol Fumarate (Symbicort 160/4.5mcg -) 1 puff IH BID [facility] Last Admin: 06/06/19 23:18 Dose: 1 puff Diltiazem HCl (Cardizem Cd -) 120 mg PO DAILY [facility] Last Admin: 06/06/19 10:47 Dose: 120 mg Docusate Sodium (Colace -) 300 mg PO HS [facility] Last Admin: 06/06/19 23:16 Dose: 300 mg Ferrous Sulfate (Feosol -) 325 mg PO DAILY [facility] Last Admin: 06/06/19 10:47 Dose: 325 mg Heparin Sodium (Porcine) (Heparin -) 5,000 unit SQ TID [facility] Last Admin: 06/07/19 06:41 Dose: Not Given Levothyroxine Sodium (Synthroid -) 25 mcg PO DAILY@0700 [facility] Last Admin: 06/07/19 06:41 Dose: 25 mcg Montelukast Sodium (Singulair -) 10 mg PO HS [facility] Last Admin: 06/06/19 23:17 Dose: 10 mg Pantoprazole Sodium (Protonix -) 40 mg PO ACBK [facility] Last Admin: 06/07/19 06:40 Dose: 40 mg Phenytoin Sodium (Dilantin -) 100 mg PO BID [facility] Last Admin: 06/06/19 23:17 Dose: 100 mg Prednisone (Deltasone -) 20 mg PO DAILY [facility] Senna (Senna -) 1 tab PO BID [facility] Last Admin: 06/06/19 23:18 Dose: 1 tab Tiotropium [place] (Spiriva Respimat) 2 puff IH DAILY [facility] Last Admin: 06/06/19 10:47 Dose: 2 puff Gen: NAD at rest Heart: RRR Lung: few scattered rhonchi, No wheezes Abd: soft, nontender Ext: no edema Laboratory Results - last 24 hr 06/01/19 08:04 Transferrin 231 A/P Acute COPD Exacerbation Acute Bronchitis h/o RUL Lobectomy CAD Chronic PANCHITO consolidation Hypothyroidism Anemia - GI workup ongoing - prednisone taper - inhaled bronchodilators - azithromycin - O2 to keep SpO2 >90% - DVT prophylaxis - d/c planning Dr Garay
[2019-06-07 10:46] LABS: HEMATOCRIT 35.2 % (35.4-49); HEMOGLOBIN 11.1 GM/dL (11.7-16.9); MCH 24.6 pg (25.7-33.7); MCHC 31.5 g/dl (32.0-35.9); MEAN PLT VOLUME 9.1 fl (7.5-11.1); PLATELET COUNT 199 K/MM3 (134-434); RBC 4.51 M/mm3 (4.00-5.60); RDW 19.8 % (11.9-15.9); WHITE BLOOD COUNT 13.2 K/mm3 (4.0-10.0)
[2019-06-07 11:09] LABS: BLOOD UREA NITROGEN 16.7 mg/dL (7-18); CALCIUM 8.2 mg/dL (8.5-10.1); CREATININE 0.4 mg/dL (0.55-1.3); POTASSIUM 4.2 mmol/L (3.5-5.1)
[2019-06-07] MEDS: predniSONE 20 MG TABLET (UD) PO SCH (11:19)
[2019-06-07] MEDS: PHENYTOIN NA EXTENDED 100 MG CAPSULE (FP) PO SCH ×2 (11:19→22:03)
[2019-06-07] MEDS: SENNOSIDES 8.6MG TABLET (FP) PO SCH ×2 (11:19→22:03)
[2019-06-07] MEDS: ASPIRIN 81 MG CHEWABLE TABLETS PO SCH (11:19)
[2019-06-07] MEDS: FERROUS SO4 325 MG TABLET (FP) PO SCH (11:19)
[2019-06-07] MEDS: AZITHROMYCIN 250 MG TABLET PO SCH (11:19)
[2019-06-07] MEDS: BUDESONIDE/FORMETEROL FUMARATE 160/4.5 mcg INHALER IH SCH ×2 (11:20→22:05)
[2019-06-07] MEDS: TIOTROPIUM BROMIDE 2.5 MCG (SPIRIVA) RESPIMAT INHALER IH SCH (11:20)
--- NOTE | 2019-06-07 11:36 | EKG ---
Test Reason : Blood Pressure : / mmHG Vent. Rate : 078 BPM Atrial Rate : 078 BPM P-R Int : 178 ms QRS Dur : 106 ms QT Int : 372 ms P-R-T Axes : 084 -59 082 degrees QTc Int : 424 ms NORMAL SINUS RHYTHM LEFT AXIS DEVIATION ANTEROSEPTAL INFARCT (CITED ON OR BEFORE 29-OCT-2007) ABNORMAL ECG WHEN COMPARED WITH ECG OF 30-MAY-2019 21:45, QT HAS SHORTENED Confirmed by Portillo Burnett MD ([id number]) on 06/07/2019 11:35:47 AM Referred By: Confirmed By:Portillo Burnett MD
--- NOTE | 2019-06-07 13:55 | PN ---
Teaching Attending Note Name of Resident: Valeria Cheng ATTENDING PHYSICIAN STATEMENT I saw and evaluated the patient. I reviewed the resident's note and discussed the case with the resident. I agree with the resident's findings and plan as documented. SUBJECTIVE: No fever or chills . no BARRIENTOS . SOB is better . OBJECTIVE: NAD Cv: RRR Lungs: CTAB , good air entry,no wheezing. brown sputum Ext: No edema , no erythema or tenderness Abd: soft, NT, ND , NL BS . ASSESSMENT AND PLAN: 73 y/o man with h/o COPD, on 2 L of O2 at home, CAD, s/p PCI and stents, HTN, seizures, HLP, and GERD who presented with SOB . He was found to have acute COPD exacerbation. 1- Acute COPD exacerbation: - cont steroid taper, change to 20 mg daily -cont inahlers and Nebs - cotn O2 supp. on 2 L of O2 at home 2- Ileus, resolved. had BMs yesterday and this am - cont bowel regimen after dc as well 3- H/o seizures, cont meds DVT PX : heparin patient was informed that he is medically stable and is discharged. he refuses to leave the hospital . he will leave when he feels ready .
--- NOTE | 2019-06-07 19:39 | PN ---
Physical Exam: SUBJECTIVE: Patient seen and examined at the bedside. No acute events overnight. Patient's abdominal pain improved. OBJECTIVE: Vital Signs Period Temp Pulse Resp BP Sys/Fernández Pulse Ox Last 24 Hr 97.3 F-98.0 F 68-86 17-18 106-140/64-100 95 Exam limited because patient is refusing to participate fully GENERAL: Cachectic elderly male lying in bed. AOx3. HEENT: Dry mucous membranes. EOMI intact, PERRL LUNGS: on 3LNC, lungs sound clear to ascultation bilaterally, no accessory muscle use HEART: Regular rate and rhythm, normal S1 and S2 without murmurs ABDOMEN: Soft, nontender, not distended UPPER EXTREMITIES: 2+ pulses, warm, well-perfused. No peripheral edema. LOWER EXTREMITIES: 2+ pulses, warm, well-perfused. No peripheral edema. PSYCHIATRIC: Appropriate mood and affect. SKIN: Dry skin b/l UE and LE. R knee has healing scab Laboratory Results - last 24 hr 06/01/19 06/07/19 06/07/19 08:04 10:35 10:35 WBC 13.2 H RBC 4.51 Hgb 11.1 L Hct 35.2 L MCV 78.0 L MCH 24.6 L MCHC 31.5 L RDW 19.8 H Plt Count 199 MPV 9.1 Sodium 133 L Potassium 4.2 Chloride 99 Carbon Dioxide 29 Anion Gap 5 L BUN 16.7 Creatinine 0.4 L Est GFR (CKD-EPI)AfAm 135.61 Est GFR (CKD-EPI)NonAf 117.01 Random Glucose 79 Calcium 8.2 L Transferrin 231 Active Medications Generic Name Dose Route Start Last Admin Trade Name Freq PRN Reason Stop Dose Admin Albuterol Sulfate 1 amp 05/31/19 16:32 06/05/19 22:00 Ventolin 0.083% Nebulizer Soln - NEB 1 amp Q6H PRN Administration SHORT OF BREATH/WHEEZING Aspirin 81 mg 05/31/19 10:00 06/07/19 11:19 Asa - PO 81 mg DAILY EUNICE Administration Atorvastatin Calcium 10 mg 05/31/19 22:00 06/06/19 23:18 Lipitor - PO 10 mg HS EUNICE Administration Azithromycin 250 mg 06/03/19 10:00 06/07/19 11:19 Zithromax - PO 250 mg DAILY EUNICE Administration Bisacodyl 10 mg 06/06/19 16:26 Dulcolax Suppository - RC DAILY PRN CONSTIPATION Budesonide/Formoterol Fumarate 1 puff 05/31/19 10:00 06/07/19 11:20 Symbicort 160/4.5mcg - IH 1 puff BID EUNICE Administration Diltiazem HCl 120 mg 05/31/19 10:00 06/07/19 11:19 Cardizem Cd - PO 120 mg DAILY EUNICE Administration Docusate Sodium 300 mg 06/06/19 22:00 06/06/19 23:16 Colace - PO 300 mg HS EUNICE Administration Ferrous Sulfate 325 mg 06/01/19 17:15 06/07/19 11:19 Feosol - PO 325 mg DAILY EUNICE Administration Heparin Sodium (Porcine) 5,000 unit 05/31/19 06:00 06/07/19 15:37 Heparin - SQ Not Given TID EUNICE Levothyroxine Sodium 25 mcg 06/07/19 07:00 06/07/19 06:41 Synthroid - PO 25 mcg DAILY@0700 EUNICE Administration Montelukast Sodium 10 mg 05/31/19 22:00 06/06/19 23:17 Singulair - PO 10 mg HS EUNICE Administration Pantoprazole Sodium 40 mg 05/31/19 07:00 06/07/19 06:40 Protonix - PO 40 mg ACBK EUNICE Administration Phenytoin Sodium 100 mg 05/31/19 10:00 06/07/19 11:19 Dilantin - PO 100 mg BID EUNICE Administration Prednisone 20 mg 06/07/19 10:00 06/07/19 11:19 Deltasone - PO 20 mg DAILY EUNICE Administration Senna 1 tab 06/06/19 10:00 06/07/19 11:19 Senna - PO 1 tab BID EUNICE Administration Tiotropium [place] 2 puff 06/01/19 10:00 06/07/19 11:20 Spiriva Respimat IH 2 puff DAILY EUNICE Administration ASSESSMENT/PLAN: 73 y.o. PMH COPD chronic bronchitis (w/ recent admission for COPD exacerbation discharged 04/23/19) on 2L home O2, HTN, HLD, pulm HTN, CAD, seizure disorder, GERD presenting with SOB x 2 days found to have acute COPD exacerbation #COPD acute bronchitis exacerbation - Pulmonology, Dr. Brill, evaluated patient, appreciate recommendations - continue ventolin inhaler - continue singulair - continue Spiriva - continue symbicort - continue azithromycin TIW - continue steroid taper, on 20mg daily now - continue O2NC prn - Per pulm, pt maybe a candidate for daliresp as outpt # Severe malnutrition On physical exam Mr. Desir is extremely cachectic. His BMI is 13.7, the or first assist registered nurse was consulted. The patient refused supplements with ensure and so frequent snacks were recommended. I spoke to the patient about increasing his caloric consumption and he refused any snacks or supplementation. # Abdominal Pain - will f/u abdominal x-ray #Microcytic anemia -F/u FOBT -F/u outpatient for colonoscopy -Started PO iron supplementation and colace #Isolated alk phos -F/u RUQ U/s > showing mild fatty infiltrate, no acute process #CAD -C/w aspirin 81mg daily #HTN -C/w diltiazem 120mg daily -Monitor vitals #HLD -C/w simvastatin 20mg daily #Seizure d/o -C/w dilantin 100mg PO BID #DVT PPX -Heparin 5000 SQ TID -Protonix 40mg PO daily #FEN -No standing fluids -Monitor lytes -Sodium controlled diet -recommend DEXA scan outpatient d/t thin stature and likely osteoporosis seen on XR #Dispo-Discharged. Pt. lost discharge appeal. Visit type - Emergency Visit Emergency Visit: Yes ED Registration Date: 05/30/19 Care time: The patient presented to the Emergency Department on the above date and was hospitalized for further evaluation of their emergent condition. - New Patient This patient is new to me today: No - Critical Care Critical Care patient: No - Discharge Referral Referred to [facility] Med [facility].C.: No ATTENDING PHYSICIAN STATEMENT I saw and evaluated the patient. I reviewed the resident's note and discussed the case with the resident. I agree with the resident's findings and plan as documented. SUBJECTIVE: OBJECTIVE: ASSESSMENT AND PLAN:
[2019-06-07] MEDS: ALBUTEROL SO4 0.083% IH SOL 2.5 MG/3 ML VIAL.NEB. NEB PRN (20:10)
[2019-06-07] MEDS: MONTELUKAST NA 10 MG TABLET PO SCH (22:03)
[2019-06-07] MEDS: DOCUSATE SODIUM 100 MG CAPSULE (FP) PO SCH (22:04)
[2019-06-07] MEDS: ATORVASTATIN CA 10 MG TABLET (FP) PO SCH (22:04)
[2019-06-08] MEDS: LEVOTHYROXINE NA 25 MCG TABLET (FP) PO SCH (06:20)
[2019-06-08] MEDS: HEPARIN NA (PORCINE) 5,000 UNITS/ML 1ML VIAL SQ SCH ×2 (06:21→13:27)
[2019-06-08] MEDS: PANTOPRAZOLE 40 MG TABLET (FP) PO SCH (06:21)
[2019-06-08] MEDS: FERROUS SO4 325 MG TABLET (FP) PO SCH (11:59)
[2019-06-08] MEDS: predniSONE 20 MG TABLET (UD) PO SCH (11:59)
[2019-06-08] MEDS: ASPIRIN 81 MG CHEWABLE TABLETS PO SCH (11:59)
[2019-06-08] MEDS: SENNOSIDES 8.6MG TABLET (FP) PO SCH (11:59)
[2019-06-08] MEDS: AZITHROMYCIN 250 MG TABLET PO SCH (12:00)
[2019-06-08] MEDS: TIOTROPIUM BROMIDE 2.5 MCG (SPIRIVA) RESPIMAT INHALER IH SCH (12:00)
[2019-06-08] MEDS: BUDESONIDE/FORMETEROL FUMARATE 160/4.5 mcg INHALER IH SCH (12:00)
[2019-06-08] MEDS: PHENYTOIN NA EXTENDED 100 MG CAPSULE (FP) PO SCH (12:00)
--- NOTE | 2019-06-08 13:05 | PN ---
Progress Note, Physician History of Present Illness: pulmonary awake,alert,less dyspneic,-abd pain - Current Medication List Current Medications: Active Medications Albuterol Sulfate (Ventolin 0.083% Nebulizer Soln -) 1 amp NEB Q6H PRN PRN Reason: SHORT OF BREATH/WHEEZING Last Admin: 06/07/19 20:10 Dose: 1 amp Aspirin (Asa -) 81 mg PO DAILY [facility] Last Admin: 06/08/19 11:59 Dose: 81 mg Atorvastatin Calcium (Lipitor -) 10 mg PO HS [facility] Last Admin: 06/07/19 22:04 Dose: 10 mg Azithromycin (Zithromax -) 250 mg PO DAILY [facility] Last Admin: 06/08/19 12:00 Dose: 250 mg Bisacodyl (Dulcolax Suppository -) 10 mg RC DAILY PRN PRN Reason: CONSTIPATION Budesonide/Formoterol Fumarate (Symbicort 160/4.5mcg -) 1 puff IH BID [facility] Last Admin: 06/08/19 12:00 Dose: 1 puff Diltiazem HCl (Cardizem Cd -) 120 mg PO DAILY [facility] Last Admin: 06/08/19 12:00 Dose: 120 mg Docusate Sodium (Colace -) 300 mg PO HS [facility] Last Admin: 06/07/19 22:04 Dose: 300 mg Ferrous Sulfate (Feosol -) 325 mg PO DAILY [facility] Last Admin: 06/08/19 11:59 Dose: 325 mg Heparin Sodium (Porcine) (Heparin -) 5,000 unit SQ TID [facility] Last Admin: 06/08/19 06:21 Dose: Not Given Levothyroxine Sodium (Synthroid -) 25 mcg PO DAILY@0700 [facility] Last Admin: 06/08/19 06:20 Dose: 25 mcg Montelukast Sodium (Singulair -) 10 mg PO HS [facility] Last Admin: 06/07/19 22:03 Dose: 10 mg Pantoprazole Sodium (Protonix -) 40 mg PO ACBK [facility] Last Admin: 06/08/19 06:21 Dose: 40 mg Phenytoin Sodium (Dilantin -) 100 mg PO BID [facility] Last Admin: 06/08/19 12:00 Dose: 100 mg Prednisone (Deltasone -) 20 mg PO DAILY [facility] Last Admin: 06/08/19 11:59 Dose: 20 mg Senna (Senna -) 1 tab PO BID [facility] Last Admin: 06/08/19 11:59 Dose: Not Given Tiotropium [place] (Spiriva Respimat) 2 puff IH DAILY [facility] Last Admin: 06/08/19 12:00 Dose: 2 puff - Objective Vital Signs: Vital Signs Temperature 98 F 06/08/19 11:58 Pulse Rate 75 06/08/19 11:58 Respiratory Rate 18 06/08/19 11:58 Blood Pressure 116/75 06/08/19 11:58 O2 Sat by Pulse Oximetry (%) 95 06/07/19 21:00 Constitutional: Yes: Calm, Cachectic Eyes: Yes: WNL HENT: Yes: WNL Neck: Yes: WNL Cardiovascular: Yes: Regular Rate and Rhythm, S1 Respiratory: Yes: Diminished Gastrointestinal: Yes: Normal Bowel Sounds, Soft Extremities: Yes: WNL Edema: No Labs: CBC, BMP 06/07/19 10:35 Problem List - Problems (1) Chronic hypoxemic respiratory failure Code(s): J96.11 - CHRONIC RESPIRATORY FAILURE WITH HYPOXIA (2) Anemia Code(s): D64.9 - ANEMIA, UNSPECIFIED Qualifiers: Anemia type: unspecified type Qualified Code(s): D64.9 - Anemia, unspecified (3) Cachexia Code(s): R64 - CACHEXIA (4) URI (upper respiratory infection) Code(s): J06.9 - ACUTE UPPER RESPIRATORY INFECTION, UNSPECIFIED Qualifiers: URI type: unspecified URI Qualified Code(s): J06.9 - Acute upper respiratory infection, unspecified (5) CAD (coronary artery disease) Code(s): I25.10 - ATHSCL HEART DISEASE OF [place] CORONARY ARTERY W/O ANG PCTRS (6) CVA (cerebral vascular accident) Code(s): I63.9 - CEREBRAL INFARCTION, UNSPECIFIED (7) Cachexia Code(s): R64 - CACHEXIA (8) HLD (hyperlipidemia) Code(s): E78.5 - HYPERLIPIDEMIA, UNSPECIFIED (9) HTN (hypertension) Code(s): I10 - ESSENTIAL (PRIMARY) HYPERTENSION (10) Pulmonary hypertension Code(s): I27.2 - OTHER SECONDARY PULMONARY HYPERTENSION * DO NOT USE * (11) Respiratory distress Code(s): R06.00 - DYSPNEA, UNSPECIFIED (12) Severe malnutrition Code(s): E43 - UNSPECIFIED SEVERE PROTEIN-CALORIE MALNUTRITION (13) Seizure disorder Code(s): G40.909 - EPILEPSY, UNSP, NOT INTRACTABLE, WITHOUT STATUS EPILEPTICUS (14) Acute exacerbation of chronic obstructive pulmonary disease (COPD) Code(s): J44.1 - CHRONIC OBSTRUCTIVE PULMONARY DISEASE W (ACUTE) EXACERBATION Assessment/Plan IMP DYSPNEA improved END STAGE COPD 2 DEPENDENT WITH ACUTE EXACERBATION improved CHRONIC HYPOXEMIC RESPIRATORY FAILURE H/O DVT/PE PULMONARY HTN ASHD S/P STENT H/O SEIZURE HTN HLD PLAN prednisone 20mg po daily with taper 5mg every 2 days INHALED BRONCHODILATORS O2 ZITHROMAX 250 TIW CONSIDER DALIRESP D/C PLANNING DR LOPEZ Problem List - Problems (1) Chronic hypoxemic respiratory failure Code(s): J96.11 - CHRONIC RESPIRATORY FAILURE WITH HYPOXIA (2) Anemia Code(s): D64.9 - ANEMIA, UNSPECIFIED Qualifiers: Anemia type: unspecified type Qualified Code(s): D64.9 - Anemia, unspecified (3) Cachexia Code(s): R64 - CACHEXIA (4) URI (upper respiratory infection) Code(s): J06.9 - ACUTE UPPER RESPIRATORY INFECTION, UNSPECIFIED Qualifiers: URI type: unspecified URI Qualified Code(s): J06.9 - Acute upper respiratory infection, unspecified (5) CAD (coronary artery disease) Code(s): I25.10 - ATHSCL HEART DISEASE OF [place] CORONARY ARTERY W/O ANG PCTRS (6) CVA (cerebral vascular accident) Code(s): I63.9 - CEREBRAL INFARCTION, UNSPECIFIED (7) Cachexia Code(s): R64 - CACHEXIA (8) HLD (hyperlipidemia) Code(s): E78.5 - HYPERLIPIDEMIA, UNSPECIFIED (9) HTN (hypertension) Code(s): I10 - ESSENTIAL (PRIMARY) HYPERTENSION (10) Pulmonary hypertension Code(s): I27.2 - OTHER SECONDARY PULMONARY HYPERTENSION * DO NOT USE * (11) Respiratory distress Code(s): R06.00 - DYSPNEA, UNSPECIFIED (12) Severe malnutrition Code(s): E43 - UNSPECIFIED SEVERE PROTEIN-CALORIE MALNUTRITION (13) Seizure disorder Code(s): G40.909 - EPILEPSY, UNSP, NOT INTRACTABLE, WITHOUT STATUS EPILEPTICUS
[2019-06-08 15:51] VITALS: BP 109/66; PULSE 88; TEMP 98.5
--- NOTE | 2019-06-08 18:27 | PN ---
Teaching Attending Note Name of Resident: Matt Mancuso ATTENDING PHYSICIAN STATEMENT I saw and evaluated the patient. I reviewed the resident's note and discussed the case with the resident. I agree with the resident's findings and plan as documented. SUBJECTIVE: patient was discharged yesterday and refused to leave till today no change in clinical situation . lungs with no wheezes and good air entry cont out patient plan as discussed before
== END 2019-06-08 19:00 | disposition home health service (06) | DRG 189 ==
LOC: JER 19:32 → JERBED 21:08 → J5S 05-31 17:17
PROVIDERS: ADMIT Internal Medicine; ATTEND Internal Medicine
DX: J96.21 Acute and chronic respiratory failure with hypoxia (principal); E43 Unspecified severe protein-calorie malnutrition; J44.0 Chronic obstructive pulmonary disease with (acute) lower respiratory infection; R64 Cachexia; Z68.1 Body mass index [BMI] 19.9 or less, adult; K56.7 Ileus, unspecified; J44.1 Chronic obstructive pulmonary disease with (acute) exacerbation; J96.22 Acute and chronic respiratory failure with hypercapnia; I25.10 Atherosclerotic heart disease of native coronary artery without angina pectoris; E78.5 Hyperlipidemia, unspecified; K21.9 Gastro-esophageal reflux disease without esophagitis; D64.9 Anemia, unspecified; G40.909 Epilepsy, unspecified, not intractable, without status epilepticus; I27.20 Pulmonary hypertension, unspecified; E03.9 Hypothyroidism, unspecified; M10.9 Gout, unspecified; M81.0 Age-related osteoporosis without current pathological fracture; K59.09 Other constipation; Z86.73 Personal history of transient ischemic attack (TIA), and cerebral infarction without residual deficits; Z95.5 Presence of coronary angioplasty implant and graft; Z99.81 Dependence on supplemental oxygen
CPT/HCPCS: 36415; 36600; 71045-TC-FY; 74018-TC-FY; 76705-TC; 80048; 80053; 82272; 82375; 82728; 82803; 83050; 83540; 83550; 83735; 83880; 84100; 84439; 84443; 84466; 84484; 85025; 85027; 85044; 87804; 93005; 93010; 94640; 94660; 97116-GP; 97162-GP; 99284-25; J1644

== ENCOUNTER 2020-06-04 01:47 | Emergency (ER) | payer OTHER ==
[2020-06-04 01:53] VITALS: BMI 18.4
--- NOTE | 2020-06-04 02:21 | PDOC ---
Attending Attestation - Resident Resident Name: Mason Willis - ED Attending Attestation I have performed the following: I have examined & evaluated the patient, The case was reviewed & discussed with the resident, I agree w/resident's findings & plan - HPI HPI: 06/04/20 02:23 Pt comes with SOB; new EKG changes seen. - Physicial Exam PE: 06/04/20 02:24 Agree with resident exam 06/04/20 03:05 Pt is afebrile and able to speak in full sentences with his nasal cannula O2 Pt is cachectic. He states that he is always thin. He is A+Ox3 and in no distress on the O2 (No ill contacts - just his HHAide, who always wears a mask.) - Medical Decision Making 06/04/20 02:24 Admit to tele 06/04/20 03:58 Pt has an elevated d-dimer. We will get a CTA chest 06/04/20 07:26 Pt will be signed out to the day ER team Discharge - Discharge Information Problems reviewed: Yes Clinical Impression/Diagnosis: COPD (chronic obstructive pulmonary disease) Qualifiers: COPD type: chronic bronchitis Chronic bronchitis type: unspecified Qualified Code(s): J42 - Unspecified chronic bronchitis Condition: Fair Disposition: HOME - Additional Discharge Information Prescriptions: Azithromycin 500 mg PO ONCE 3 Days #3 tablet predniSONE [Deltasone -] 50 mg PO DAILY 4 Days #4 tablet - Follow up/Referral Referrals: Flex Mo MD [Primary Care Provider] - - Patient Discharge Instructions Patient Printed Discharge Instructions: DI for Shortness of Breath Additional Instructions: You were seen in the ED for shortness of breath. In the ED you were evaluated with labwork and imaging. Your results were normal. There does not appear to be an acute need for immediate hospitalization. You are advised to follow up with your Primary Care Physician within 1 week. You were given a prescription for azithromycin and prednisone. Return to the ED immediately if you experience worsening shortness of breath, cough, or fever. - Post Discharge Activity
--- OUTSIDE RECORDS SUMMARY | 2020-06-04 02:21 | XMS ---
:1945 Author Organization [facility] Care Team Providers Name Role Phone Jang, Pushpinder Unavailable [email or web address] Jang, Pushpinder Unavailable [email or web address] Jang, Pushpinder Unavailable [email or web address] Jang, Pushpinder Unavailable [email or web address] Jang, Pushpinder Unavailable [email or web address] Jang, Pushpinder Unavailable [email or web address] Jang, Pushpinder Unavailable [email or web address] Jang, Pushpinder Unavailable [email or web address] Ann, Alex Unavailable Unavailable Ann, Alex Unavailable Unavailable Ann, Alex Unavailable Unavailable Ann, Alex Unavailable Unavailable Ann, Alex Unavailable Unavailable Ann, Alex Unavailable Unavailable Ann, Alex Unavailable Unavailable Ann, Alex Unavailable Unavailable Ann, Alex Unavailable Unavailable Ann, Alex Unavailable Unavailable Ann, Alex Unavailable Unavailable Sandra Ferrera MD Unavailable Re-disclosure Warning The records that you are about to access may contain information from federally- assisted alcohol or drug abuse programs. If such information is present, then the following federally mandated warning applies: This information has been disclosed to you from records protected by federal confidentiality rules (42 CFR part 2). The federal rules prohibit you from making any further disclosure of this information unless further disclosure is expressly permitted by the written consent of the person to whom it pertains or as otherwise permitted by 42 CFR part 2. A general authorization for the release of medical or other information is NOT sufficient for this purpose. The Federal rules restrict any use of the information to criminally investigate or prosecute any alcohol or drug abuse patient.The records that you are about to access may contain highly sensitive health information, the redisclosure of which is protected by Article 27-F of the [facility] Public Health law. If you continue you may haveaccess to information: Regarding HIV / AIDS; Provided by facilities licensed or operated by the [facility] Office of Mental Health; or Provided by the [facility] Office for People With Developmental Disabilities. If such information is present, then the following [facility] mandated warning applies: This information has been disclosed to you from confidential records which are protected by state law. State law prohibits you from making any further disclosure of this information without the specific written consent of the person to whom it pertains, or as otherwise permitted by law. Any unauthorized further disclosure in violation of state law may result in a fine or half-way sentence or both. A general authorization for the release of medical or other information is NOT sufficient authorization for further disclosure. Allergies and Adverse Reactions Type Description Substance Reaction Status Data Source(s ) 9 N/A N/A SIGMACARE ([facility] [place]) Encounters Encounter Providers Location Date Indications Data Source(s ) Inpatient Attender: Sandra Varela [address] 11/22/2019 SIGMA CARE ([facility] MDAttender: 06:00:00 PM Extend ed Care [facility] EDT - Center) 03/02/2020 02:18:00 PM EDT Patient discharged. [facility] 01/11/2019 05:30:00 SIGMACARE ([facility] PM EDT - 02/22/2019 Exten ded Care 11:30:00 AM EDT Center) Patient discharged. Medications Medication Brand Start Product Dose Route Administrative Pharmacy [facility] Indications Reaction Description Data Name Date Form Instructions Instructions Source(s) mirtazapine 700324 01/13/ complet mirtaz apine SIGMACARE 7.5 mg [id number] 2019 ed 7.5 mg ([facility] tablet 11:05: tablet Extended 04 AM Care EDT Center) mirtazapine [id number] 01/13/ complet mirtaz apine SIGMACARE 7.5 mg [id number] 2019 ed 7.5 mg ([facility] tablet 11:05: tablet Extended 04 AM Care EDT Center) prednisone Predni 12/02/ complet prednis one 5 SIGMACARE 5 mg tablet sone 5 2020 ed mg tablet ( [facility] MG 03:00: Extended Oral 00 PM Care Tablet EDT Center) prednisone Predni 12/02/ complet prednis one 5 SIGMACARE 5 mg tablet sone 5 2019 ed mg tablet ( [facility] MG 03:00: Extended Oral 00 PM Care Tablet EDT Center) prednisone Predni 12/02/ complet prednis one 5 SIGMACARE 5 mg tablet sone 5 2019 ed mg tablet ( [facility] MG 03:00: Extended Oral 00 PM Care Tablet EDT Center) prednisone Predni 11/30/ complet prednis one SIGMACARE 10 mg sone 2019 ed 10 mg tablet ([facility] tablet 10 MG 03:00: Extended Oral 00 PM Care Tablet EDT Center) prednisone [id number] complet prednis one SIGMACARE 20 mg [id number] 2019 ed 20 mg tablet ([facility] tablet 03:00: Extended 00 PM Care EDT Center) prednisone Predni prednis one SIGMACARE 10 mg sone 2019 ed 10 mg tablet ([facility] tablet 10 MG 03:00: Extended Oral 00 PM Care Tablet EDT Center) ipratropium Ipratr complet ipratr opium SIGMACARE bromide opium 2019 ed bromide 0.02 (Re gency 0.02 % Bromid 08:32: % solution Ext ended solution e 0.2 19 PM for Care for MG/ML EDT inhalation Center) inhalation Inhala tion Soluti on ipratropium Ipratr complet ipratr opium SIGMACARE bromide opium 2019 ed bromide 0.02 (Re gency 0.02 % Bromid 08:32: % solution Ext ended solution e 0.2 19 PM for Care for MG/ML EDT inhalation Center) inhalation Inhala tion Soluti on ipratropium Ipratr ipratr opium SIGMACARE bromide opium 2020 ed bromide 0.02 (Re gency 0.02 % Bromid 08:32: % solution Ext ended solution e 0.2 19 PM for Care for MG/ML EDT inhalation Center) inhalation Inhala tion Soluti on Advair 14 complet Advair SIGMAC ARE Diskus ACTUAT 2020 ed Diskus 250 ([facility] (fluticason Flutic 11:17: mcg-50 Ex tended e asone 52 AM mcg/dose Care propion-alona propio EDT powder for Center) meterol) serafin inhalation 250 mcg-50 0.25 mcg/dose MG/ACT powder for UAT / inhalation salmet nicole 0.05 MG/ACT UAT Dry Powder Inhale r [Advai r] Advair 14 11/21/ complet Advair SIGMAC ARE Diskus ACTUAT 2020 ed Diskus 250 (Rege ncy (fluticason Flutic 11:17: mcg-50 Ex tended e asone 52 AM mcg/dose Care propion-alona propio EDT powder for Center) meterol) serafin inhalation 250 mcg-50 0.25 mcg/dose MG/ACT powder for UAT / inhalation salmet nicole 0.05 MG/ACT UAT Dry Powder Inhale r [Advai r] Advair 14 11/21/ complet Advair SIGMAC ARE Diskus ACTUAT 2020 ed Diskus 250 (Re[facility] ncy (fluticason Flutic 11:17: mcg-50 Ex tended e asone 52 AM mcg/dose Care propion-alona propio EDT powder for Center) meterol) serafin inhalation 250 mcg-50 0.25 mcg/dose MG/ACT powder for UAT / inhalation salmet nicole 0.05 MG/ACT UAT Dry Powder Inhale r [Advai r] senna 8.6 sennos senna 8. 6 mg SIGMACARE mg tablet 2019 ed tablet ([facility] 11:05: Extended 8.6 MG 57 AM Care Oral EDT Center) Tablet senna 8.6 sennos senna 8. 6 mg SIGMACARE mg tablet 2019 ed tablet ([facility] 11:05: Extended 8.6 MG 57 AM Care Oral EDT Center) Tablet senna 8.6 sennos senna 8. 6 mg SIGMACARE mg tablet 2019 ed tablet ([facility] 11:05: Extended 8.6 MG 57 AM Care Oral EDT Center) Tablet Kalpana-D [id number] Kalpana- D 12 SIGMACARE 12 Hour [id number] 2019 ed Hour 60 ([facility] (fexofenadi 10:59: mg-120 mg E xtended ne-pseudoep 12 AM tablet,exten Care hedrine) 60 EDT ded release C enter) mg-120 mg tablet,exte nded release Kalpana-D [id number] 03/17/ complet Kalpana- D 12 SIGMACARE 12 Hour [id number] 2020 ed Hour 60 ([facility] (fexofenadi 10:59: mg-120 mg E xtended ne-pseudoep 12 AM tablet,exten Care hedrine) 60 EDT ded release C enter) mg-120 mg tablet,exte nded release Kalpana-D [id number] 11/21/ complet Kalpana- D 12 SIGMACARE 12 Hour [id number] 2020 ed Hour 60 ([facility] (fexofenadi 10:59: mg-120 mg E xtended ne-pseudoep 12 AM tablet,exten Care hedrine) 60 EDT ded release C enter) mg-120 mg tablet,exte nded release acetaminoph Acetam complet acetam inophe SIGMACARE en 325 mg inophe 2020 ed n 325 mg (Reg en[facility] tablet n 325 10:59: tablet Extended MG 11 AM Care Oral EDT Center) Tablet aspirin 81 Aspiri 11/21/ complet aspirin 81 SIGMACARE mg n 81 2019 ed mg ([facility] tablet,shweta MG 10:59: tablet,shweta y Extended yed release Delaye 11 AM ed release Care d EDT Center) Releas e Oral Tablet aspirin 81 Aspiri 11/21/ complet aspirin 81 SIGMACARE mg n 81 2020 ed mg ([facility] tablet,shweta MG 10:59: tablet,shweta y Extended yed release Delaye 11 AM ed release Care d EDT Center) Releas e Oral Tablet acetaminoph Acetam 11/21/ complet acetam inophe SIGMACARE en 325 mg inophe 2020 ed n 325 mg (Reg en[facility] tablet n 325 10:59: tablet Extended MG 11 AM Care Oral EDT Center) Tablet acetaminoph Acetam 11/21/ complet acetam inophe SIGMACARE en 325 mg inophe 2020 ed n 325 mg ([facility] tablet n 325 10:59: tablet Extended MG 11 AM Care Oral EDT Center) Tablet aspirin 81 Aspiri 11/21/ complet aspirin 81 SIGMACARE mg n 81 2020 ed mg ([facility] tablet,shweta MG 10:59: tablet,shweta y Extended yed release Delaye 11 AM ed release Care d EDT Center) Releas e Oral Tablet vitamin A Petrol 11/21/ complet vitamin A SIGMACARE and D atum 2019 ed and D ([facility] topical 0.868 10:10: topical Extend ed ointment MG/MG 49 AM ointment Care Topica EDT Center) l Ointme nt vitamin A Petrol 11/21/ complet vitamin A SIGMACARE and D atum 2020 ed and D ([facility] topical 0.868 10:10: topical Extend ed ointment MG/MG 49 AM ointment Care Topic EDT Center) l Ointme nt vitamin A Petrol 11/21/ complet vitamin A SIGMACARE and D atum 2020 ed and D ([facility] topical 0.868 10:10: topical Extend ed ointment MG/MG 49 AM ointment Care Topica EDT Center) l Ointme nt pantoprazol pantop 11/21/ complet pantop razole SIGMACARE e 40 mg razole 2019 ed 40 mg ([facility] tablet,shweta 40 MG 10:10: tablet,del ay Extended yed release Delaye 48 AM ed release Care d EDT Center) Releas e Oral Tablet pantoprazol pantop 11/21/ complet pantop razole SIGMACARE e 40 mg razole 2019 ed 40 mg ([facility] tablet,shweta 40 MG 10:10: tablet,del ay Extended yed release Delaye 48 AM ed release Care d EDT Center) Releas e Oral Tablet pantoprazol pantop 11/21/ complet pantop razole SIGMACARE e 40 mg razole 2019 ed 40 mg ([facility] tablet,shweta 40 MG 10:10: tablet,del ay Extended yed release Delaye 48 AM ed release Care d EDT Center) Releas e Oral Tablet albuterol Albute 11/21/ complet albutero l SIGMACARE sulfate 2.5 rol 2020 ed sulfate 2.5 ( [facility] mg/3 mL 0.83 10:10: mg/3 mL Extende d (0.083 %) MG/ML 47 AM (0.083 %) Car e solution Inhala EDT solution for C enter) for tion nebulization nebulizatio Soluti n on Tussin CF Dextro 11/21/ complet Tussin C F SIGMACARE (PE-DM-guai methor 2020 ed (PE-DM-guai f ([facility] f) hyde 10:10: ) 5 mg-10 Extended (phenylephr Hydrob 47 AM mg-100 mg/ 5 Care ine-dm-guai romide EDT mL oral [address]) fenesin) 5 2 liquid mg-10 MG/ML mg-100 mg/5 / mL oral Guaife liquid nesin 20 MG/ML / Phenyl ephrin e Hydroc hlorid e 1 MG/ML Oral Soluti on diltiazem 24 HR 11/21/ diltiazem CD SIGMACARE CD 120 mg Diltia 2020 ed 120 mg ([facility] capsule,ext zem 10:10: capsule,ext e Extended ended Hydroc 47 AM nded release Car e release 24 hlorid EDT 24 hr Center ) hr e 120 MG Extend ed Releas e Oral Capsul e albuterol Albute 11/21/ albutero l SIGMACARE sulfate 2.5 rol 2019 ed sulfate 2.5 ( [facility] mg/3 mL 0.83 10:10: mg/3 mL Extende d (0.083 %) MG/ML 47 AM (0.083 %) Car e solution Inhala EDT solution for C enter) for tion nebulization nebulizatio Soluti n on diltiazem 24 HR 11/21/ diltiazem CD SIGMACARE CD 120 mg Diltia 2020 ed 120 mg ([facility] capsule,ext zem 10:10: capsule,ext e Extended ended Hydroc 47 AM nded release Car e release 24 hlorid EDT 24 hr Center ) hr e 120 MG Extend ed Releas e Oral Capsul e Tussin CF Dextro Tussin C F SIGMACARE (PE-DM-guai methor 2020 ed (PE-DM-guai f ([facility] f) hyde 10:10: ) 5 mg-10 Extended (phenylephr Hydrob 47 AM mg-100 mg/ 5 Care ine-dm-guai romide EDT mL oral [address] [facility]) fenesin) 5 2 liquid mg-10 MG/ML mg-100 mg/5 / mL oral Guaife liquid nesin 20 MG/ML / Phenyl ephrin e Hydroc hlorid e 1 MG/ML Oral Soluti on albuterol Albute 11/21/ complet albutero l SIGMACARE sulfate 2.5 rol 2019 ed sulfate 2.5 ( [facility] mg/3 mL 0.83 10:10: mg/3 mL Extende d (0.083 %) MG/ML 47 AM (0.083 %) Car e solution Inhala EDT solution for C enter) for tion nebulization nebulizatio Soluti n on Tussin CF Dextro Tussin C F SIGMACARE (PE-DM-guai methor 2020 ed (PE-DM-guai f ([facility] f) hyde 10:10: ) 5 mg-10 Extended (phenylephr Hydrob 47 AM mg-100 mg/ 5 Care ine-dm-guai romide EDT mL oral [address] [facility]) fenesin) 5 2 liquid mg-10 MG/ML mg-100 mg/5 / mL oral Guaife liquid nesin 20 MG/ML / Phenyl ephrin e Hydroc hlorid e 1 MG/ML Oral Soluti on diltiazem 24 HR diltiazem CD SIGMACARE CD 120 mg Diltia 2019 ed 120 mg ([facility] capsule,ext zem 10:10: capsule,ext e Extended ended Hydroc 47 AM nded release Car e release 24 hlorid EDT 24 hr Center ) hr e 120 MG Extend ed Releas e Oral Capsul e simvastatin Simvas complet simvas tatin SIGMACARE 20 mg tatin 2019 ed 20 mg tablet ([facility] tablet 20 MG 10:10: Extended Oral 46 AM Care Tablet EDT Center) Dilantin Phenyt complet Dilantin SIGMACARE Kapseal oin 2019 ed Kapseal 100 ([facility] (phenytoin sodium 10:10: mg capsule Extended sodium 100 MG 46 AM Care extended) Extend EDT Center) 100 mg ed capsule Releas e Oral Capsul e [Yan tin] simvastatin Simvas complet simvas tatin SIGMACARE 20 mg tatin 2019 ed 20 mg tablet ([facility] tablet 20 MG 10:10: Extended Oral 46 AM Care Tablet EDT Center) Dilantin Phenyt complet Dilantin SIGMACARE Kapseal oin 2020 ed Kapseal 100 ([facility] (phenytoin sodium 10:10: mg capsule Extended sodium 100 MG 46 AM Care extended) Extend EDT Center) 100 mg ed capsule Releas e Oral Capsul e [Yan tin] Dilantin Phenyt complet Dilantin SIGMACARE Kapseal oin 2020 ed Kapseal 100 ([facility] (phenytoin sodium 10:10: mg capsule Extended sodium 100 MG 46 AM Care extended) Extend EDT Center) 100 mg ed capsule Releas e Oral Capsul e [Yan tin] simvastatin Simvas complet simvas tatin SIGMACARE 20 mg tatin 2019 ed 20 mg tablet ([facility] tablet 20 MG 10:10: Extended Oral 46 AM Care Tablet EDT Center) Singulair lakshmi complet Singulai r 10 [facility] ed mg tablet (R egency t) 10 mg 10 MG 10:10: Extended tablet Oral 44 AM Care Tablet EDT Center) [Singu lair] Singulair lakshmi complet Singulai r 10 [facility] ([facility] ed mg tablet (R egency t) 10 mg 10 MG 10:10: Extended tablet Oral 44 AM Care Tablet EDT Center) [Singu lair] Singulair lakshmi complet [facility]ulai r 10 [facility] ([facility] egency t) 10 mg 10 MG 10:10: Extended tablet Oral 44 AM Care Tablet EDT Center) [Singu lair] clonazepam Clonaz 02/18/ complet clonaze ja [facility]MACARE 0.5 mg epam 2018 ed 0.5 mg ([facility] tablet 0.5 MG 06:29: tablet Extende d Oral 30 AM Care Tablet EDT Center) Symbicort 120 01/26/ complet Symbicort SIGMACARE (budesonide ACTUAT 2019 ed 160 mcg-4.5 ([facility] -formoterol Budeso 09:00: mcg/actua johanna Extended ) 160 nide 00 PM n HFA Care mcg-4.5 0.16 EDT aerosol Center) mcg/actuati MG/ACT inhaler on HFA UAT / aerosol formot inhaler nicole fumara te 0.0045 MG/ACT UAT Metere d Dose Inhale r [Symbi fatuma] prednisone Predni 01/17/ complet prednis one 5 SIGMACARE 5 mg tablet sone 5 2018 ed mg tablet ( [facility] MG 09:00: Extended Oral 00 PM Care Tablet EDT Center) prednisone Predni 01/14/ complet prednis one SIGMACARE 10 mg son2018 ed 10 mg tablet ([facility] tablet 10 MG 09:00: Extended Oral 00 PM Care Tablet EDT Center) Lovenox 0.3 ML complet Lovenox 30 SIGMACARE (enoxaparin Enoxap 2019 ed mg/0.3 mL ( [facility] ) 30 mg/0.3 juan 10:08: subcutaneou s Extended mL sodium 38 AM syringe Care [place] [id number] EDT Center) s syringe MG/ML Prefil led Syring e [Loven ox] Lovenox 0.3 ML complet Lovenox 30 SIGMACARE (enoxaparin Enoxap 2019 ed mg/0.3 mL ( [facility] ) 30 mg/0.3 juan 10:08: subcutaneou s Extended mL sodium 38 AM syringe Care [place] [address] EDT Center) s syringe MG/ML Prefil led Syring e [Loven ox] prednisone Predni complet prednis one SIGMACARE 20 mg sone 2018 ed 20 mg tablet ([facility] tablet 20 MG 09:00: Extended Oral 00 PM Care Tablet EDT Center) vitamin A Petrol 01/11/ complet vitamin A SIGMACARE and D atum 2019 ed and D ([facility] topical 0.868 12:53: topical Extend ed ointment MG/MG 16 PM ointment Care Topica EDT Center) l Ointme nt vitamin A Petrol 01/11/ complet vitamin A SIGMACARE and D atum 2019 ed and D ([facility] topical 0.868 12:53: topical Extend ed ointment MG/MG 16 PM ointment Care Topica EDT Center) l Ointme nt pantoprazol pantop 01/11/ complet pantop razole SIGMACARE e 40 mg razole 2018 ed 40 mg ([facility] tablet,shweta 40 MG 11:12: tablet,del ay Extended yed release Delaye 43 AM ed release Care d EDT Center) Releas e Oral Tablet pantoprazol pantop 01/11/ complet pantop razole SIGMACARE e 40 mg razole 2018 ed 40 mg ([facility] tablet,shweta 40 MG 11:12: tablet,del ay Extended yed release Delaye 43 AM ed release Care d EDT Center) Releas e Oral Tablet diltiazem 24 HR 01/11/ complet diltiazem CD SIG[facility]ARE CD 120 mg Diltia 2019 ed 120 mg ([facility] capsule,ext zem 11:12: capsule,ext e Extended ended Hydroc 42 AM nded release Car e release 24 hlorid EDT 24 hr Center ) hr e 120 MG Extend ed Releas e Oral Capsul e DuoNeb Albute 01/11/ complet DuoNeb 2.5 SIGMACARE (ipratropiu rol 2019 ed mg-0.5 mg/3 ( [facility] m-albuterol 0.833 11:12: mL solutio n Extended ) 2.5 MG/ML 42 AM for Care mg-0.5 mg/3 / EDT nebulization Center) mL solution Ipratr for opium nebulizatio Bromid n e 0.167 MG/ML Inhala tion Soluti on [DuoNe b] diltiazem 24 HR 01/11/ diltiazem CD SIGMACARE CD 120 mg Diltia 2019 ed 120 mg ([facility] capsule,ext zem 11:12: capsule,ext e Extended ended Hydroc 42 AM nded release Car e release 24 hlorid EDT 24 hr Center ) hr e 120 MG Extend ed Releas e Oral Capsul e DuoNeb Albute 01/11/ complet DuoNeb 2.5 SIGMACARE (ipratropiu rol 2019 ed mg-0.5 mg/3 ( [facility] m-albuterol 0.833 11:12: mL solutio n Extended ) 2.5 MG/ML 42 AM for Care mg-0.5 mg/3 / EDT nebulization Center) mL solution Ipratr for opium nebulizatio Bromid n e 0.167 MG/ML Inhala tion Soluti on [DuoNe b] Tussin CF Dextro 01/11/ Tussin C F SIGMACARE (PE-DM-guai methor 2019 ed (PE-DM-guai f ([facility] f) hyde 11:12: ) 5 mg-10 Extended (phenylephr Hydrob 41 AM mg-100 mg/ 5 Care ine-dm-guai romide EDT mL oral [address] [facility]) fenesin) 5 2 liquid mg-10 MG/ML mg-100 mg/5 / mL oral Guaife liquid nesin 20 MG/ML / Phenyl ephrin e Hydroc hlorid e 1 MG/ML Oral Soluti on magnesium Magnes 05/07/ complet magnesiu m SIG[facility]ARE oxide 400 ium 2019 ed oxide 400 mg (R egency mg (241.3 Oxide 11:12: (241.3 mg Ex tended mg 400 MG 41 AM magnesium) Care magnesium) Oral EDT tablet Center) tablet Tablet albuterol Albute albutero l SIGMACARE sulfate 2.5 rol 2018 ed sulfate 2.5 ( [facility] mg/3 mL 0.83 11:12: mg/3 mL Extende d (0.083 %) MG/ML 41 AM (0.083 %) Car e solution Inhala EDT solution for C enter) for tion nebulization nebulizatio Soluti n on simvastatin Simvas complet simvas tatin SIGMACARE 20 mg tatin 2018 ed 20 mg tablet ([facility] tablet 20 MG 11:12: Extended Oral 41 AM Care Tablet EDT Center) Singulair lakshmi Singulai r 10 [facility]ARE ([facility] 2019 ed mg tablet (R egency t) 10 mg 10 MG 11:12: Extended tablet Oral 41 AM Care Tablet EDT Center) [Singu lair] Dilantin Phenyt Dilantin SIGMACARE Kapseal oin 2019 ed Kapseal 100 ([facility] (phenytoin sodium 11:12: mg capsule Extended sodium 100 MG 41 AM Care extended) Extend EDT Center) 100 mg ed capsule Releas e Oral Capsul e [Yan tin] simvastatin Simvas simvas tatin SIGMACARE 20 mg tatin 2019 ed 20 mg tablet ([facility] tablet 20 MG 11:12: Extended Oral 41 AM Care Tablet EDT Center) albuterol Albute complet albutero l SIG[facility]ARE sulfate 2.5 rol 2019 ed sulfate 2.5 ( [facility] mg/3 mL 0.83 11:12: mg/3 mL Extende d (0.083 %) MG/ML 41 AM (0.083 %) Car e solution Inhala EDT solution for C enter) for tion nebulization nebulizatio Soluti n on magnesium Magnes complet magnesiu m SIGMACARE oxide 400 ium 2019 ed oxide 400 mg (R egency mg (241.3 Oxide 11:12: (241.3 mg Ex tended mg 400 MG 41 AM magnesium) Care magnesium) Oral EDT tablet Center) tablet Tablet Tussin CF Dextro 01/11/ complet Tussin C F SIGMACARE (PE-DM-guai methor 2019 ed (PE-DM-guai f ([facility] f) hyde 11:12: ) 5 mg-10 Extended (phenylephr Hydrob 41 AM mg-100 mg/ 5 Care ine-dm-guai romide EDT mL oral [address] [facility]) fenesin) 5 2 liquid mg-10 MG/ML mg-100 mg/5 / mL oral Guaife liquid nesin 20 MG/ML / Phenyl ephrin e Hydroc hlorid e 1 MG/ML Oral Soluti on Singulair lakshmi 01/11/ complet Singulai r 10 SIG[facility]ARE ([facility] 2019 ed mg tablet (R egency t) 10 mg 10 MG 11:12: Extended tablet Oral 41 AM Care Tablet EDT Center) [Singu lair] Dilantin Phenyt 01/11/ complet Dilantin SIGMACARE Kapseal oin 2019 ed Kapseal 100 ([facility] (phenytoin sodium 11:12: mg capsule Extended sodium 100 MG 41 AM Care extended) Extend EDT Center) 100 mg ed capsule Releas e Oral Capsul e [Yan tin] acetaminoph Acetam 01/11/ acetam inophe SIGMACARE en 325 mg inophe 2019 ed n 325 mg ([facility] tablet n 325 11:12: tablet Extended MG 41 AM Care Oral EDT Center) Tablet Insurance Providers Payer name Policy type Policy ID Covered Covered libertarian's Policy P jose / Coverage libertarian ID relationship to [place] Inf ormation type colby MEDICARE [id number] SP [id number] V66 MEDICAID [id number] SP [id number] Medicaid Medicaid [id number] Self [id number] Medicare Part Medicare [id number] Self [id number] B Part B Medicare Part 18 [id number] Self [id number] A Medicaid 3 [id number] Self [id number] Medicare Part 2 [id number] Self [id number] B Medicare Part Medicare [id number] Self [id number] A Part A MEDICARE [id number] SP [id number] V66 HEALTH FIRST [id number] SP [id number] MEDICARE Medicare Part Medicare [id number] Self [id number] A Part A Medicaid Medicaid [id number] Self [id number] Medicare Part Medicare [id number] Self [id number] B Part B Medicare Part Medicare [id number] Self [id number] A Part A Medicare Part 18 [id number] Self [id number] A HEALTH FIRST [id number] SP [id number] MEDICARE Medicare-Blue [id number] S [id number] [place]/[employer] Shield Medicare [id number] S [id number] A [facility] Medicaid [id number] Regular Clinic Visit Problems, Conditions, and Diagnoses Code Display Name Description Problem Type Effective Data Dates Source(s) U07.1 COVID-19 COVID-19 Diagnosis 02/07/2020 [facility] 12:00:00 [facility] F33.0 Major depressive Major depressive Diagnosis 01/14/2020 SI GMACARE disorder, recurrent, disorder, 12:00:00 AM ([facility] mild recurrent, mild EDT Extended [facility]) K59.00 Constipation, Constipation, Diagnosis 11/22/2019 SIGMACAR E unspecified unspecified 12:00:00 AM ([facility] EDT [facility]) J30.9 Allergic rhinitis, Allergic Diagnosis 11/22/2019 SIGMAC ARE unspecified rhinitis, 12:00:00 AM ([facility] unspecified EDT [facility]) Z29.9 Encounter for Encounter for Diagnosis 11/22/2019 SIGMACAR E prophylactic prophylactic 12:00:00 AM ([facility] measures, measures, EDT Extended Care unspecified unspecified Center) M62.81 Muscle weakness Muscle weakness Diagnosis 11/22/2019 SIGM ACARE (generalized) (generalized) 12:00:00 AM ([facility] y EDT Extended Care Center) F41.9 Anxiety disorder, Anxiety disorder, Diagnosis 02/17/2019 SIGMACARE unspecified unspecified 12:00:00 AM ([facility] Care [place]) Z23 Encounter for Encounter for Diagnosis 01/22/2019 SIGMACAR E immunization immunization 12:00:00 AM ([facility]) Z29.8 Encounter for other Encounter for Diagnosis 01/11/2019 SI GMACARE specified other specified 12:00:00 AM ([facility] prophylactic prophylactic EDT Extended C are measures measures Center) R06.02 Shortness of breath Shortness of Diagnosis 01/11/2019 SIG MACARE breath 12:00:00 AM ([facility] Extended Care [place]) I10 Essential (primary) Essential Diagnosis 01/11/2019 [facility] hypertension (primary) 12:00:00 AM ([facility] hypertension EDT Extended Car e Center) R05 Cough Cough Diagnosis 01/11/2019 [facility] 12:00:00 AM ([facility]) E61.2 Magnesium deficiency Magnesium Diagnosis 01/11/2019 [facility] deficiency 12:00:00 AM ([facility]) E78.5 Hyperlipidemia, Hyperlipidemia, Diagnosis 01/11/2019 [facility] unspecified unspecified 12:00:00 AM ([facility]) G40.909 Epilepsy, Epilepsy, unsp, Diagnosis 01/11/2019 [facility] unspecified, not not intractable, 12:00:00 AM ( [facility] intractable, without without status EDT Extended Care status epilepticus epilepticus Cente r) J44.9 Chronic obstructive Chronic Diagnosis 01/11/2019 [facility] pulmonary disease, obstructive 12:00:00 AM ([facility] unspecified pulmonary EDT Extended Care disease, Center) unspecified R52 Pain, unspecified Pain, unspecified Diagnosis 01/11/2019 [facility] 12:00:00 AM ([facility] Care [place]) Z00.00 Encounter for Encntr for Diagnosis 01/11/2019 [facility] general adult general adult 12:00:00 AM ([facility] medical examination medical exam w/o EDT Extended Care without abnormal abnormal findings C enter) findings L98.8 Other specified Oth disrd of the Diagnosis 01/11/2019 [facility] disorders of the skin and 12:00:00 AM ([facility] y skin and subcutaneous EDT Extended Car e subcutaneous tissue tissue Cente r) K21.9 Gastro-esophageal Gastro-esophageal Diagnosis 01/11/2019 [facility] reflux disease reflux disease 12:00:00 AM ([facility] without esophagitis without EDT Exten ded Care esophagitis Center) 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 [facility] RE heart disease of disease of [place] 12:00:00 AM ([facility] [place] coronary coronary artery EDT Exte nded Care artery without w/o ang pctrs Center) angina pectoris R53.1 Weakness Weakness Diagnosis 01/11/2019 [facility] 12:00:00 AM ([facility] ED Extended [facility]) Results ID Date Data Source [id number] 02/14/2020 12:00:00 AM EDT [facility] Name Value Range Interpretation Code Description Data Rosangela rce(s) Supporting Document(s ) 2018-nCoV [facility] RNA XXX TIFFANIE+probe- Imp This lab was ordered by [facility] and reported by [employer] ID Date Data Source [id number] 01/27/2020 12:00:00 AM EDT [facility] Name Value Range Interpretation Code Description Data Rosangela rce(s) Supporting Document(s ) 2018-nCoV [facility] RNA XXX TIFFANIE+probe- Imp This lab was ordered by [facility] and reported by [employer] ID Date Data Source [id number] 02/14/2019 07:43:00 AM EDT [facility] ([facility]) Name Value Range Interpretation Description Data Sup porting Code Source(s) Document(s ) GFR for >60mL/min 60- <td [facility] Females /1.73m E2 ID="Observation ([facility] -Test-275b0b78- Extended n813-116g-43s1- [facility]) 4g7j75c220a1">( [id number]) GFR for Females</td><td ID="Observation -Value-385c4a30 -b486-369s-48b0 -2m1x10m168k7"> >60</td><td ID="Observation -Unit-717y8m06- t617-638s-72n8- 9w3d88m566i0">m L/min/1.73m E2</td><td ID="Observation -RefRange-201e3 b98-d600-672i-9 9j0-6w7b19r961c 6">60-</td><td ID="Observation -Abnormal-201e3 b51-f621-081m-5 7s6-3i6o21m237b 6"></td><td ID="Observation -Status-129f3u0 0-h085-864ct715-932x-63r 8-8c5m41u578e5" >Final</td> GFR for >60mL/min/1.73m 60- <td ID="Psrfyuyqtka-Bfyr-63l00x22[id number]">(405160) GFR [facility] Females E2 for Females () </td><td ([facility] ( ID="Qtscxvbfbxd-Cdtvn-04p43b23[id number]">>60</td><td Extended [place]) ID="Mfapnovbtjo-Jvff-72s17l5509o39u51-1j07-82f2-90m6-7309157m3894">mL/min/1.73m Care E2</td><td [place]) ID="Xhwxsjzltdx-DbkQoktt-95t34 h45-6l40-13j6-21f0-8591234u9791">60-</td><td ID="Lrdajfciveh-Bgjmyyrr-44f49 u84-5f19-75x4-09z6-9132361z6988"></td><td ID="Xuoaldbgyue-Xxajtz-27c31d9 8-2d61-77e76z86-40c6-29r6-8995543b0203">Final</td> ID Date Data Source [id number] 02/14/2019 07:43:00 AM EDT [facility] ([facility]) Name Value Range Interpretation Description Data Sup porting Code Source(s) Document(s ) WBC 8.8K/mcL 4.0-11 <td [facility] ID="Observati ([facility] mn-Pvlg-20w9s Extended 815-zgf8-2il5 Care -7h23-745quu7 [place]) 995b8">(815) WBC</td><td ID="Observati zv-Rwuzd-09l6 s444-pra6-6tq 0-7w72-609nxz 4995b8">8.8</ td><td ID="Observati km-Ytcq-82o5a 263-tne3-6bb8 -0m40-742hlg8 995b8">K/mcL< /td><td ID="Observati su-PbdPmchp-2 0i5l645-cel0- 6fd2-7j76-847 edi7131z4">4. 0-11</td><td ID="Observati of-Cqywdtwk-3 5y3u864-msj6- 2ry7-7m24-468 ojc7431p0"></ td><td ID="Observati oz-Jnlxsl-36z 3n737-jxp4-0b l7-4x60-256co p2548r1">Leslie l</td> RBC 4.13mil/ 4.2-5.4 Below low normal <td [facility] mcL ID="Observati ([facility] mh-Uvgb-6219q Extended 048-uebq-27j1 Care -8950-2onnc28 Center) 08f0e">(816) RBC</td><td ID="Observati vl-Uhxtg-9035 u871-bcqv-19t 1-0209-0lzvw7 308f0e">4.13< /td><td ID="Observati so-Nhjv-0534l 877-iaio-54c3 -8950-5lixi10 08f0e">mil/mc L</td><td ID="Observati ej-MthHgiid-8 417f463-buzf- 66m5-9526-2zm yz2426q2q">4. 2-5.4</td><td ID="Observati cu-Flwbcggz-1 427q749-ojpc- 21o4-6174-2al sp7623c9v">L< /td><td ID="Observati ov-Gebjwm-183 6n142-gxkb-17 t0-9867-3zpjs 0535d4y">Leslie l</td> HGB 11.3g/dL 12-16 Below low normal <td [facility] ID="Observati ([facility] bl-Ehzx-f13h5 Extended 591-4h8z-3e5y Care -8271-83i54ip [place]) c2b45">(817) HGB</td><td ID="Observati lq-Pyort-m51u 5196-8g1g-7e5 y-6315-59p82w fc2b45">11.3< /td><td ID="Observati yb-Vmbn-c83a3 556-0z9q-8s8n -8271-59r98fb c2b45">g/dL</ td><td ID="Observati di-QjvHstok-d 20x8090-3d5f- 7f4b-9752-05a 36kli4h87">12 -16</td><td ID="Observati wd-Vchlkckb-w 82k2919-4g8j- 3x0c-5158-74c 81mjn3x83">L< /td><td ID="Observati fe-Bsiwrv-y22 p4308-5d2l-5a 0z-3792-54c08 xof7o79">Leslie l</td> HCT 33.4% 35-49 Below low normal <td [facility] ID="Observati ([facility] kn-Rfuf-6u08j Extended o31-25v0-666p Care -8244-91q3g9x [place]) 81f36">(818) HCT</td><td ID="Observati bg-Hdbxv-8n86 jc19-61x1-243 x-3894-48e7k5 e81f36">33.4< /td><td ID="Observati nb-Wzps-7f07c j79-84o4-391f -8244-33s3h2u 81f36">%</td> <td ID="Observati ym-XktZeayx-5 t24ab32-58n9- 485o-4085-17v 3y7o95t07">35 -49</td><td ID="Observati yj-Mwuqxbhe-4 p87cs19-47f5- 733a-2878-42y 8r7n96t93">L< /td><td ID="Observati dh-Hujygt-0q1 3ng57-19r6-03 3p-4522-44t4a 5t08w91">Leslie l</td> MCV 80.9fl 80-94 <td [facility] ID="Observati ([facility] ch-Ipxz-3m814 Extended 72n-6n45-51sc Care -xp7q-4587v27 Center) fd2aa">(819) MCV</td><td ID="Observati lm-Upgqb-0i98 427m-4r17-68o g-ak0h-5505d4 5fd2aa">80.9< /td><td ID="Observati wd-Kxym-8e880 49u-0m03-00ak -zz4n-9032e81 fd2aa">fl</td ><td ID="Observati ru-KdwHhquh-3 w68242x-4l35- 24fm-ja8c-444 7c85yn2wn">80 -94</td><td ID="Observati ob-Yyslimjm-4 p93639k-1p22- 99sb-ui6z-193 2v28nr1xr"></ td><td ID="Observati iu-Lgzmvq-4c6 5042t-8g50-72 ow-pa3f-9943z 53oz1kr">Leslie l</td> MCH 27.3pg 27-32 <td [facility] ID="Observati ([facility] bn-Dnaw-6h4b5 Extended y67-78cq-89t3 Care -806d-i1n0g43 Center) a279c">(820) MCH</td><td ID="Observati hl-Wukdc-8s5o 4d50-64ok-87n 6-351g-x2m0o9 6e846x">27.3< /td><td ID="Observati oi-Exha-5z3j7 a28-98sf-39o0 -806d-q0p1r59 a279c">pg</td ><td ID="Observati vo-WghWlxfv-3 x6q6r33-13qe- 82g9-068t-a0h 2h77y886s">27 -32</td><td ID="Observati nr-Yxffhmih-8 p6a9c77-99vy- 00m2-723g-z0h 8z23j448y"></ td><td ID="Observati li-Pyiszi-4a4 y2r85-96dq-81 y6-788u-v6y3y 52d905v">Leslie l</td> MCHC 33.7g/dL 33-37 <td [facility] ID="Observati ([facility] kx-Zqtg-mzpi5 Extended 2g6-xk5h-3o68 Care -z87z-vp5p38e [place]) db87d">(822) MCHC</td><td ID="Observati ao-Lwjhz-cfjt 33a7-ak2f-4i4 3-n55n-ng9i74 bdb87d">33.7< /td><td ID="Observati hv-Tged-bdwn5 1k6-rn8y-7v70 -f25a-uz8t83u db87d">g/dL</ td><td ID="Observati if-IftCsptv-r vbj98v2-nw8p- 4t91-z56z-ym1 w35ity82w">33 -37</td><td ID="Observati zm-Trhbcysw-k zvq27u2-me7o- 5a03-w04m-bl9 u02tpu05c"></ td><td ID="Observati au-Nzfqzu-ljy b74k2-hs0t-4u 92-p33b-do8y9 6omu20b">Leslie l</td> RDW 20.5% 11.5-14. Above upper panic <td [facility] 5 limits ID="Observati ([facility] cw-Ddcr-6075y Extended 9at-z2y5-6u81 [address] [place]) ba5e4">(823) RDW</td><td ID="Observati pf-Wzfwt-8053 y3bx-s9d9-3r5 2-4525-3x9249 2ba5e4">20.5< /td><td ID="Observati xh-Caij-4660l 4wj-i7y1-9c46 -8864-2y06345 ba5e4">%</td> <td ID="Observati zg-InvRwhmi-6 055v3al-k3z0- 0j70-3289-7j8 4095tn5o8">11 .5-14.5</td>< td ID="Observati sl-Epwgkhnd-0 222e0zu-y3b7- 2w09-3911-1w2 4533zj6s4">HH </td><td ID="Observati wm-Auoyca-059 7f9og-f6y9-6t 68-0397-2j885 42zr1m2">Leslie l</td> PLT 185K/mcL 130-400 <td [facility] ID="Observati ([facility] fq-Rtgh-6294y Extended 1o1-fz2r-0571 Care -jm6o-96o1t8u [place]) 6830f">(824) PLT</td><td ID="Observati iw-Xxkap-2961 t1y9-uy2l-982 8-cs1f-93i6u7 l5568n">185</ td><td ID="Observati nv-Mswu-5767o 4k9-cw6t-1172 -pp1j-81m8a6r 6830f">K/mcL< /td><td ID="Observati tg-BfvEaysc-9 997a2z2-qd5g- 2033-wx3p-55e 8l5x5316m">13 0-400</td><td ID="Observati to-Zeqivecq-0 048l9q6-zg0p- 2098-oj1n-39v 9f7a4014z"></ td><td ID="Observati zf-Ijheoe-317 5i7r1-uz3g-79 13-iy6l-41i0a 5c5533q">Leslie l</td> Granulocytes 73.4% 39.500-9 <td [facility] 0 ID="Observati ([facility] to-Jyhx-117p8 Extended 549-l909-15y4 Care -p95r-cu7051m Center) 643d6">(825) Granulocytes< /td><td ID="Observati wp-Aywle-299t 8548-g158-45y 0-n51p-mx5217 e643d6">73.4< /td><td ID="Observati sf-Ajpp-033x2 833-p301-05l2 -d14t-ve7030t 643d6">%</td> <td ID="Observati sr-NoxOwpox-1 84e2307-r048- 49q9-v81u-vj9 887k570n0">39 .500-90</td>< td ID="Observati ci-Jlbmmchn-8 93t8201-j522- 83y3-v03o-gs4 213c583y9"></ td><td ID="Observati ja-Rogxqw-966 h6028-s201-58 d9-w12f-fc621 4m490g6">Leslie l</td> Lymphocytes 14.0% 18.500-7 Below low normal <td [facility] 0 ID="Observati ([facility] hy-Fzdu-n99k9 Extended xtt-19ka-04p4 Care -7fv7-4juj5h3 [place]) 94056">(826) Lymphocytes</ td><td ID="Observati es-Frfqu-q24s 9wrk-34vv-14a 6-7nf8-4omf7q 642187">14.0< /td><td ID="Observati qq-Ltyb-n37x1 gsb-22ur-78k4 -7tf8-9mex7c2 50284">%</td> <td ID="Observati kh-ZrdNxjrf-w 38n5ifj-39fu- 40s9-9nv9-5cd w4h534278">18 .500-70</td>< td ID="Observati cw-Kagmeogv-f 11d6xoe-28db- 21o4-0rz3-3li v9q621000">L< /td><td ID="Observati ed-Qpxxio-d77 d8ijb-51yy-06 q4-9xi2-4roi1 u266416">Leslie l</td> Monocytes 10.7% 2.500-15 <td [facility] ID="Observati ([facility] xs-Xpes-cebyn Extended z62-nj2m-1o24 Care -88fb-195ox97 [place]) 89974">(827) Monocytes</td ><td ID="Observati cw-Semyf-ibxl ws77-pw8k-8c4 2-89vi-082lf4 402547">10.7< /td><td ID="Observati yy-Tdtx-fazet m48-wt9f-6s44 -88fb-056qv87 67707">%</td> <td ID="Observati rg-JkpSzmlq-d frteq85-gs0e- 2i52-47ha-018 bq6507918">2. 500-15</td><t d ID="Observati ua-Nvaqjsbm-t etemq13-po7p- 4d03-47er-904 yj3022523"></ td><td ID="Observati us-Cksdnk-fik jht11-ma8v-7h 42-71hf-125hl 6817046">Leslie l</td> Eosinophils 0.5% 0.5-3.0 Below low normal <td [facility] ID="Observati ([facility] ih-Zvbj-22469 Extended 33n-20ne-3970 Care -9dbe-1h9v339 [place]) e5fbe">(828) Eosinophils</ td><td ID="Observati lf-Nwhan-4675 261i-09yj-502 2-9bnc-1s0j41 8e5fbe">0.5</ td><td ID="Observati yr-Ytox-18740 43k-18zw-5787 -9dbe-7k7h957 e5fbe">%</td> <td ID="Observati hc-ZxqBgtjn-9 235222d-76qb- 7891-8lac-2g2 s371f7vxn">0. 5-3.0</td><td ID="Observati xe-Sgenxfjd-3 002567e-40wt- 5332-8hsq-2d4 r615v8atl">L< /td><td ID="Observati sa-Kwdyzo-693 0470u-44qs-16 73-2iqz-2p1c6 07d4fqe">Leslie l</td> Basophil 1.3% 0-2.000 <td [facility] ID="Observati ([facility] jf-Tzxx-86299 Extended 809-9z52-9871 Care -d65a-ts256g0 [place]) 4b756">(829) Basophil</td> <td ID="Observati fr-Ekkyx-5020 9044-0m52-566 6-f08v-yr535z 72x788">1.3</ td><td ID="Observati cv-Nful-60586 602-6c32-3098 -d39a-cy357c2 4b756">%</td> <td ID="Observati di-ErqGhtot-0 0899550-4u61- 9606-i27i-hl3 99b19l873">0- 2.000</td><td ID="Observati xp-Nvlpetof-5 8484814-9n37- 2221-a11q-kl3 50s02i951"></ td><td ID="Observati ze-Qltnne-270 69982-4n45-11 53-p11r-xm086 x51y221">Leslie l</td> Absolute 6.5K/mcL 1.6-6.0 Above high normal <td [facility] Neutrophil ID="Observati ([facility] Count os-Okob-33o8z Extended 607-h099-732b Care -iz21-7724b5k [place]) ffc54">(921) Absolute Neutrophil Count</td><td ID="Observati sf-Svemv-81l3 b702-o435-888 p-da42-5920h4 cffc54">6.5</ td><td ID="Observati it-Pwwh-67v9o 468-c992-327g -ln46-0490c6f ffc54">K/mcL< /td><td ID="Observati qq-RlxBugvq-9 2a6m840-b625- 566m-xc79-454 3g5uwcx83">1. 6-6.0</td><td ID="Observati xi-Dajltibe-2 2z4s502-q135- 463j-mi37-091 5x9igph75">H< /td><td ID="Observati zt-Elhred-35i 4p716-b650-76 6h-wf68-1967c 8icbf97">Leslie l</td> ID Date Data Source [id number] 02/14/2019 07:43:00 AM EDT [facility] ([facility]) Name Value Range Interpretation Description Data Sup porting Code Source(s) Document(s ) Dilantin <3.0mcg/m 10.0-20.0 Below lower panic <td [facility] L limits ID="[facility]atio ([facility]-n28fe6t Extended 2-8a62-1a464b50-0k54-hn [facility]) 58-5abqf12g0x6 9">() Dilantin</td>< td ID="Observatio h-Rvudk-s95ni5 f1-9u59-3m43-b y13-2bjhu67g9n 89"><3.0</td>< td ID="Observatio q-Chqv-n89rj2e 0-7s19-1h102x23-4z18-zj 58-0jsxb27d1e2 9">mcg/mL</td> <td ID="Observatio k-UdeTpcfw-v89 ol6z2-2h36-1y0 6-yb98-7wnaa24 b9e89">10.0-20 .0</td><td ID="Observatio y-Yefhqnab-u44 xo7y6-2n13-8h1 3-jk56-8fseu81 b9e89">LL</td> <td ID="Observatio k-Iskpsm-k36kv 2j9-0w77-2k80- sl56-6yecz85j1 e89">Final</td > ID Date Data Source [id number] 02/14/2019 07:43:00 AM EDT [facility] ([facility]) Name Value Range Interpretation Description Data Sup porting Code Source(s) Document(s ) Sodium 139meq/L 136-145 <td [facility] ID="Observatio ([facility] m-Chip-5j3e866 Extended f-5s90-14447t38-8034-sp [facility]) 14-350fleqwn0i f">(59931) Sodium</td><td ID="Observatio s-Fcnst-0f8c54 5g-7f69-6000-a k66-211gvsdcr7 ff">139</td><t d ID="Observatio l-Nwkb-4t9h591 j-1h20-75864i66-7008-rd 14-380zssmzy6j f">meq/L</td>< td ID="Observatio b-CdiFsfbv-8k2 r998b-7m66-854 4-hx65-189ufwu ed6ff">136-145 </td><td ID="Observatio x-Xckrdofy-5d3 c942q-7d10-394 8-nd80-589onmi ed6ff"></td><t d ID="Observatio u-Kpuaoc-2c5b7 48r-9b20-0616- uq39-604awtvwu 6ff">Final</td > Potassium 4.5meq/L 3.4-5.5 <td [facility] ID="Observatio ([facility] o-Hnqs-50808e5 Extended 0-4w58-30k24b22-99f7-64 [facility]) 50-l2322y4fke4 c">(55381) Potassium</td> <td ID="Observatio h-Tdxrn-25679o 23-2p46-96z6-8 350-v2663h0ddt 8c">4.5</td><t d ID="Observatio d-Yogm-94155u6 8-2f48-09t63g62-54y0-70 50-r7417e5wpl3 c">meq/L</td>< td ID="Observatio l-QccFrqkc-207 37e87-5r82-76r 4-3848-e9074n2 dba8c">3.4-5.5 </td><td ID="Observatio n-Dyikuhxo-359 50t00-7i17-10o 5-7754-b7798x8 dba8c"></td><t d ID="Observatio j-Ddtbfk-55625 y77-4w95-84s3- 8350-m7268i9bj a8c">Final</td > Carbon 26meq/L 22-30 <td [facility] Dioxide ID="Observatio ([facility] e-Gyio-31vtq0z Extended 3-509p-0205-86 [facility]) 76-285wmi9qf05 f">(13899) Carbon Dioxide</td><t d ID="Observatio k-Zjlrn-56cre0 y3-363n-8687-8 676-062mid5in3 6f">26</td><td ID="Observatio g-Nwez-42xkw6a 4-703z-9720-86 76-024rmn6hw35 f">meq/L</td>< td ID="Observatio c-TwzLeliw-80o uh2d8-394x-623 2-5233-620xfj1 cd26f">22-30</ td><td ID="Observatio k-Mgkzisyd-30d la4p9-025v-194 5-1697-742jal4 cd26f"></td><t d ID="Observatio x-Rwgihi-98rhk 6p0-052l-9256- 8676-314igv4vz 26f">Final</td > Chloride 95meq/L 98-107 Below low normal <td [facility] ID="Observatio ([facility] e-Dnnh-b319pgg Extended 6-q3u4-236ab8i2-985t-j2 [facility]) a9-7372436y877 b">(01035) Chloride</td>< td ID="Observatio l-Lkbhw-q364oa i7-k7r6-533k-b 8k0-2842808x60 6b">95</td><td ID="Observatio t-Dzej-f092hkc 6-b8e2-244ku5q5-050z-u8 a9-1817213r475 b">meq/L</td>< td ID="Observatio i-QvxTvjgn-b40 5shh2-e4j7-582 t-f6l4-0299379 a196b">98-107< /td><td ID="Observatio w-Udlntpgf-p53 5ybv9-x3g9-500 h-k6d3-9790473 a196b">L</td>< td ID="Observatio n-Rqwikm-w298s lq4-x2r8-750i- c2g3-8199493u1 96b">Final</td > Glucose 78mg/dL 70-106 <td [facility] ID="Observatio ([facility] j-Clhd-95l77sd Extended 2-mh14-0k1tyz66-4r6e-8w [facility]) 23-2z9b29fexsg 3">(15027) Glucose</td><t d ID="Observatio x-Kupua-98m96j k9-vk50-0s5q-8 z07-0y8l06pnpl b3">78</td><td ID="Observatio v-Rmsu-91o55io 3-gj08-6l1ord55-9a0q-4z 23-6c3l10wgcaz 3">mg/dL</td>< td ID="Observatio z-PtwWejoc-15x 28at2-sm00-4x6 i-7d31-2x5b92f fedb3">70-106< /td><td ID="Observatio i-Gsauisst-14t 25zv5-qm67-2c0 k-5i57-2n1f18e fedb3"></td><t d ID="Observatio s-Nyaonf-79b85 ii2-ra86-3u8y- 8p23-7l9r39yjb db3">Final</td > Calcium 9.0mg/dL 8.4-10.2 <td [facility] ID="Observatio ([facility] v-Kpga-448lj32 Extended w-d853-5258j197-4367-79 [facility]) 29-5g3b4s66219 3">(08714) Calcium</td><t d ID="Observatio v-Pzaof-025tw8 9n-v766-9172-9 529-5p2t2y2243 93">9.0</td><t d ID="Observatio w-Ibpm-187hs97 s-q306-6655m637-0755-14 29-6x5h2h23333 3">mg/dL</td>< td ID="Observatio d-YzhHufaf-348 gz65y-x510-991 4-1520-9r9z2z4 66179">8.4-10. 2</td><td ID="Observatio e-Viutegpe-036 dq35c-y803-826 3-7444-1w4w6h0 38678"></td><t d ID="Observatio t-Cikjqs-527gm 62f-z392-8457- 9529-5l7w0g602 593">Final</td > Urea Nitrogen 13mg/dL 9-20 <td [facility] ID="Observatio ([facility] l-Trum-51mm907 Extended f-3218-3ho5-87 [facility]) 0d-201fn71kll9 1">(36803) Urea Nitrogen</td>< td ID="Observatio y-Mjohu-74fm27 9p-0979-1ad8-8 70d-871ki92dir 21">13</td><td ID="Observatio w-Rzsk-48ot205 c-3197-7ua9-87 0d-615di32nif0 1">mg/dL</td>< td ID="Observatio n-CsfLsanp-63w b414e-5903-4cw 4-947j-009sn35 dab21">9-20</t d><td ID="Observatio l-Kzeckdnt-35i h753h-3911-2lv 3-991q-382mf22 dab21"></td><t d ID="Observatio b-Fnkiri-63gk9 80d-3470-6gd5- 870d-695qe09jo b21">Final</td > Creatinine 0.60mg/d 0.52-1.0 <td [facility] Serum L 4 ID="Observatio ([facility] h-Uhkh-206239x Extended a-2g94-70p34n39-70j3-2g [facility]) bd-7d1w23x4a06 1">(81586) Creatinine Serum</td><td ID="Observatio r-Mjdjs-320895 dx-6b02-56s8-9 abd-2y2u75u7j2 11">0.60</td>< td ID="Observatio j-Vmci-495458r n-2q78-73k84u40-86g7-1k bd-1q7l39d5g34 1">mg/dL</td>< td ID="Observatio t-DfuYpkxp-049 118vy-9x56-11r 8-2wpo-8y6z32v 3a711">0.52-1. 04</td><td ID="Observatio f-Cagnjrze-037 806tm-6x73-04s 8-4nyj-1n6n51l 3a711"></td><t d ID="Observatio d-Tuompo-49690 6xo-8f81-16d6- 9abd-2b8y29j8c 711">Final</td > Protein, 6.3g/dL 6.3-8.2 <td [facility] Total ID="Observatio ([facility] y-Kqul-664c818 Extended 0-tml5-3wb3-90 [facility]) 00-67h781y2p60 0">(04390) Protein, Total</td><td ID="Observatio a-Dyqaf-996q97 68-emg5-6vw2-9 000-74x088j5f1 60">6.3</td><t d ID="Observatio g-Kfva-188c445 9-azp5-5gi6-90 00-31z958w2z66 0">g/dL</td><t d ID="Observatio e-NzdHzaxu-179 w9976-opy9-3jj 1-7168-58o127v 0e160">6.3-8.2 </td><td ID="Observatio x-Nkzwcuaf-250 b5444-slk0-3ru 0-2358-90n971h 0e160"></td><t d ID="Observatio d-Xxidmm-016k4 134-unp8-9dh9- 8999-81d380u0s 160">Final</td > Albumin 3.8g/dL 3.5-5.0 <td [facility] ID="Observatio ([facility] n-Pgkd-d66n0v4 [facility] 51-754hum6504s d">(85130) Albumin</td><t d ID="Observatio q-Epglu-r52w8l 6e-72d3-09t5-a q38-764xjr8165 bd">3.8</td><t d ID="Observatio b-Dvhu-l04m9s8 x-73n2-36a505g2-76v7-pm 51-578ssi3482m d">g/dL</td><t d ID="Observatio x-TkmFeaev-p65 s7d6d-53e3-88l 9-tz70-093zdj0 037bd">3.5-5.0 </td><td ID="Observatio g-Jhjthyyu-p85 k5y2k-63k5-45q 1-jq53-519xvi7 037bd"></td><t d ID="Observatio y-Psbatf-l03u2 w4f-17g7-46n2- yd95-390qtu309 7bd">Final</td > Globulin 2.5g/dL 2.1-3.5 <td [facility] ID="Observatio ([facility] j-Egox-c0iml98 Extended 2-005r-1666-[facility]) ed-f9k9if5f59g 4">(28295) Globulin</td>< td ID="Observatio j-Ocrpq-i9xxx8 22-888i-2608-a aed-s9w1vf0h38 f4">2.5</td><t d ID="Observatio p-Rlhf-o2voo00 4-179k-5558-aa ed-a0o6nn8e02j 4">g/dL</td><t d ID="Observatio r-YtsXvjan-z5i yg186-072e-553 6-afdf-n8d3rl4 c39f4">2.1-3.5 </td><td ID="Observatio w-Ybenycrs-g7u pc352-330f-579 3-bjzl-a7a2mt8 c39f4"></td><t d ID="Observatio z-Cbahme-b1gic 903-288q-8295- aaed-p6y5qb2v3 9f4">Final</td > Bilirubin, 0.4mg/dL 0.0-1.1 <td [facility] Total ID="Observatio ([facility] d-Splp-m9z6f51 Extended 9-6367-1r7n-9f [facility]) 93-tl5l6q1e851 4">(27435) Bilirubin, Total</td><td ID="Observatio r-Wigzf-w8b5z9 89-3862-8x3i-9 u75-vw9o3n2i11 04">0.4</td><t d ID="Observatio k-Gbmn-u9r7y21 5-0724-2a1a-9f 93-uu7v5i1t986 4">mg/dL</td>< td ID="Observatio l-TpeApdag-e5k 9a602-2771-5c8 s-9o19-ib4h8v8 b9804">0.0-1.1 </td><td ID="Observatio w-Uvvodnmb-w0a 3h998-6850-4g4 k-0p59-ph6e1c4 b9804"></td><t d ID="Observatio z-Ivvxgi-q5n8g 522-8382-5r8i- 8q73-kj0a2p8j9 804">Final</td > SGOT (AST) 20U/L 17-59 <td [facility] ID="Observatio ([facility] i-Iouv-1z49y50 Extended e-6768-9d92-8d [facility]) 33-eb6dp040218 1">(57456) SGOT (AST)</td><td ID="Observatio y-Cfgei-7t20u8 9i-6926-6t68-8 l84-jl4iu42630 51">20</td><td ID="Observatio y-Xaei-4j38c11 t-1050-6g52-8d 33-si2dw690272 1">U/L</td><td ID="Observatio w-UvfVeorh-9c1 1p10a-0962-8n1 8-4z02-im8pc70 44181">17-59</ td><td ID="Observatio o-Fzfmldah-6w2 0v47i-3338-1a7 8-0h63-bg2po13 74986"></td><t d ID="Observatio s-Qlaqok-8g30u 20c-3416-2n50- 9h82-mn2fk1225 751">Final</td > SGPT (ALT) 24U/L 9-52 <td [facility] ID="Observatio ([facility] b-Fhxz-466d8q3 Extended 2-d306-2694a064-0932-l1 [facility]) a2-1q9q65892w4 e">(19271) SGPT (ALT)</td><td ID="Observatio v-Jgjda-999f8h 63-s739-7909-a 7h1-5k9z36606l 2e">24</td><td ID="Observatio y-Gafh-482w0b9 9-g152-9184c036-3584-a8 a2-1m6e57950i6 e">U/L</td><td ID="Observatio k-ItmFjfdi-627 t5l02-h429-332 0-p7n9-9h2f758 32d2e">9-52</t d><td ID="Observatio r-Wdbtjrnh-269 m0n57-m254-999 6-q9i6-4w6g698 32d2e"></td><t d ID="Observatio i-Ubpson-435z6 i69-p766-5519- f7c9-7v3z89245 d2e">Final</td > Alkaline 127U/L 38-126 Above high normal <td [facility] Phosphatase, ID="Observatio ([facility] Serum w-Axht-d1497sn Extended 8-c1h8-5543t2u3-9327[facility]) bb-qpo0o633l55 8">(72156) Alkaline Phosphatase, Serum</td><td ID="Observatio v-Pcrdh-i1822z v2-i1h8-0880-b 5bb-pse7v394m0 98">127</td><t d ID="Observatio v-Aift-n2180jl 3-s2r3-0577s7x5-5259-d3 bb-ukp8v106j99 8">U/L</td><td ID="Observatio p-XxeNaptg-j85 84yz0-x0g7-334 6-o9bo-byn8k68 6f198">38-126< /td><td ID="Observatio n-Ykvpgssf-y45 70fz7-v5x3-209 5-l9vl-bmn0v48 6f198">H</td>< td ID="Observatio l-Mfkcoh-p5737 du9-t3n0-0824- h5mf-vyp0r540z 198">Final</td > ID Date Data Source [id number] 01/12/2019 12:30:00 PM EDT [facility] ([facility]) Name Value Range Interpretation Description Data Sup porting Code Source(s) Document(s ) GFR for >60mL/min 60- <td [facility] Males /1.73m E2 ID="Observation ([facility] -Test-797y7u10- [facility]-59iq-0rtz- [facility]) bo6j883z64g4">( [id number]) GFR for Males</td><td ID="Observation -Value-050u6z43 -0635-94kv-6alc -aa0y854r70q7"> >60</td><td ID="Observation -Unit-537f4y86- 9908-78jr-3ads- qg9q078y22d9">m L/min/1.73m E2</td><td ID="Observation -RefRange-014c0 h23-2764-17nw-9 fce-eb1k373d35r 5">60-</td><td ID="Observation -Abnormal-014c0 s70-7566-79cm-5 fce-qa5l739z39u 5"></td><td ID="Observation -Status-875h9z1 6-9078-60wz-9fc e-rk0j365q80f0" >Final</td> GFR for >60mL/min/1.73m 60- <td ID="Lexzygqxxzk-Camk-9p68z7385i79r439-6s3a-43lz-0oa5-89gvoj70r81q">([id number]) GFR [facility] Males E2 for Males ()</ td><td ([facility] ( ID="Pobyvbqwwud-Fkjga-6f38z2034x89h967-5n1w-92ez-0dc2-68fdzq90k70m">>60</td><td Extended [place]) ID="Tpadozxonjc-Jewl-8n20g9694z49k368-6v7w-41no-7gy1-50ksxa81k12d">mL/min/1.73m Care E2</td><td [place]) ID="Ychodvgbwtt-XlyYxsds-7i52f 412-0n4o-75kg6p7c-76nl-5kt2-08ysba19a23k">60-</td><td ID="Mcezughfvjs-Gsuejqfi-8q33k 941-2s8o-49ie3p9z-88lh-6ck9-78gpan09m83t"></td><td ID="Pbvukooslsu-Senylc-6d76w76 0-9g4c-36yl2b7d-73no-5ga3-77vooh33h13u">Final</td> ID Date Data Source 102 01/12/2019 12:30:00 PM EDT [facility] ([facility]) Name Value Range Interpretation Description Data Sup porting Code Source(s) Document(s ) WBC 17.6K/mc 4.0-11 Above upper panic <td [facility] L limits ID="Observati ([facility] gs-Twcw-8ny3h Extended 9dq-3wk8-260w Care -7m37-95j0o15 Center) 665bf">(815) WBC</td><td ID="Observati nf-Mfbqv-1ed3 q3qh-0jd2-049 x-0c50-76n2v7 2665bf">17.6< /td><td ID="Observati oq-Jrso-0yg2w 8oh-8ls7-980e -8n91-36q6g22 665bf">K/mcL< /td><td ID="Observati mn-QxnLlhao-0 sx2e2tn-5yf5- 325b-0y68-63m 0x32950ld">4. 0-11</td><td ID="Observati so-Mrwnywsl-4 ym4m2bq-8mh1- 142y-4t52-31s 6m58875ew">HH </td><td ID="Observati sa-Qaqoad-1wa 0n7ye-8gu6-14 7f-7r65-95j4s 18329mu">Leslie l</td> RBC 4.24mil/ 4.2-5.4 <td [facility] mcL ID="Observati ([facility] zp-Gtlw-92781 Extended 9td-6341-7863 Care -73m3-qhx91v8 [place]) 11f57">(816) RBC</td><td ID="Observati dw-Qctsc-7067 41tf-3960-871 9-84j1-knn52w 311f57">4.24< /td><td ID="Observati ip-Siul-63240 0va-8646-7254 -85e6-xty16j3 11f57">mil/mc L</td><td ID="Observati uq-WmpAiomx-0 24963xw-4907- 2780-28r0-zmq 54t750g69">4. 2-5.4</td><td ID="Observati kz-Azyxkxqp-7 77039um-5988- 9775-78u3-mki 14b350q88"></ td><td ID="Observati kq-Nvqqyf-706 918sy-9255-14 02-75f7-dke64 k820e62">Leslie l</td> HGB 11.7g/dL 14-18 Below low normal <td [facility] ID="Observati ([facility] xi-Bhxs-995zv Extended 906-143c-7427 Care -9284-9z4lqo6 [place]) a7024">(817) HGB</td><td ID="Observati xj-Ziawq-764l p056-960o-191 6-7663-5i3opx 3x2756">11.7< /td><td ID="Observati kr-Tycd-608kr 196-867i-7233 -9284-3e1czg7 a7024">g/dL</ td><td ID="Observati iy-TteDvmzk-3 80zd735-980v- 8364-5378-6f3 abt8k3874">14 -18</td><td ID="Observati id-Cjcaoasn-8 64gl659-707r- 7636-5060-5b7 ofu4r0239">L< /td><td ID="Observati mt-Fiyjav-533 dk948-122z-64 54-9609-9o4jq u1j1932">Leslie l</td> HCT 34.5% 40-54 Below low normal <td [facility] ID="Observati ([facility] hf-Yobt-4ghp9 Extended t4a-06xm-7535 Care a892-553p026 [place]) b9fa3">(818) HCT</td><td ID="Observati hq-Hamnm-9cir 5t8e-42wb-839 6-j446-232a29 7b9fa3">34.5< /td><td ID="Observati yk-Gsdq-5muu3 f1p-12ac-4259 -r913-570k870 b9fa3">%</td> <td ID="Observati ch-AqqClbay-4 wcx4a6e-40oh- 7366-u921-809 u048s7mz9">40 -54</td><td ID="Observati xu-Auwxiiid-7 pgm4z4w-01nf- 4240-l473-123 w006v1tm9">L< /td><td ID="Observati wh-Ygqszv-8ab t2h1l-43wv-31 10-l773-723m4 47e9ox6">Leslie l</td> MCV 81.4fl 80-94 <td [facility] ID="Observati ([facility] kf-Sufh-sn20e Extended 996-599i-9842 Care -4pg8-9i6p265 [place]) 168aa">(819) MCV</td><td ID="Observati rn-Purzx-ls56 e581-079z-198 5-5pu6-2w1n41 6168aa">81.4< /td><td ID="Observati bx-Vhif-kq85e 615-159o-9243 -9vi1-1u1p856 168aa">fl</td ><td ID="Observati al-WqiJszai-o c52n925-409n- 0813-6fe0-6u1 p969248qi">80 -94</td><td ID="Observati us-Kkhdlihw-t h94f741-466n- 6777-5lu9-9k4 o185495ok"></ td><td ID="Observati zo-Ugxvbl-ii1 9o589-205l-05 12-7uq7-8n9l5 48769hv">Leslie l</td> MCH 27.7pg 27-32 <td [facility] ID="Observati ([facility] fg-Tqyp-q8w5n Extended t3q-5s57-6011 Care -bde8-41511c6 [place]) 82fc2">(820) MCH</td><td ID="Observati vc-Lptoo-w8k8 oi5p-2j26-756 6-khe5-69167w 682fc2">27.7< /td><td ID="Observati dw-Ghes-b7z0p x3u-4v44-8396 -bde8-20702x4 82fc2">pg</td ><td ID="Observati ob-AxgAnvmb-y 4w5ep8i-2d23- 0575-olh6-024 15w162du8">27 -32</td><td ID="Observati ml-Rhblqdpn-a 8c7os6a-0o15- 6833-oxv5-360 83k932cz8"></ td><td ID="Observati wk-Yexwfm-n3p 0so0f-2s38-09 61-ygw1-17846 y981da8">Leslie l</td> MCHC 34.1g/dL 33-37 <td [facility] ID="Observati ([facility] ir-Habg-d3018 Extended 1u6-20y9-0ygt Care -y4d0-12q7m65 Center) 3d2bd">(822) MCHC</td><td ID="Observati mq-Ywjlq-m284 18q5-16b2-0dh k-f2v9-67f7w9 33d2bd">34.1< /td><td ID="Observati ku-Head-l8701 3x6-51t6-7lyj -p0j4-54n9t56 3d2bd">g/dL</ td><td ID="Observati ky-PkhEnrjj-c 50189t8-10n0- 3xvh-k4u4-96b 0k754r4mc">33 -37</td><td ID="Observati gr-Zktdzljv-u 18547h4-43l1- 6jvj-g3d1-72o 9e192h2fr"></ td><td ID="Observati ap-Pqejpn-u95 483c3-92n5-0y aw-h0g0-97b4n 518m9pz">Leslie l</td> RDW 20.7% 11.5-14. Above upper panic <td [facility] 5 limits ID="Observati ([facility] ku-Cnji-6rr42 Extended 779-jo0n-3560 Care -j9h5-42i366y [place]) 93269">(823) RDW</td><td ID="Observati fl-Hjxxv-3vc4 6863-pd2w-298 1-n8k5-76e054 q45686">20.7< /td><td ID="Observati oh-Pmrs-1rc56 757-xm1k-0738 -b7w0-53v503y 29954">%</td> <td ID="Observati su-KqjLrent-7 jn46788-br1y- 8822-p3v7-85c 825u21070">11 .5-14.5</td>< td ID="Observati es-Xexqgtgx-8 wt91164-oc6g- 0520-g3n2-27b 374s41374">HH </td><td ID="Observati jb-Llqpdd-2dl 01746-ug6l-33 52-o6h9-11c18 5m10094">Leslie l</td> PLT 203K/mcL 130-400 <td [facility] ID="Observati ([facility] nt-Kxom-gd5lv Extended s10-ylqo-2qr2 Care -813c-07zb180 [place]) 966ef">(824) PLT</td><td ID="Observati fk-Mvvln-ii3l dd15-mgqu-1mn 6-757u-93ka39 4966ef">203</ td><td ID="Observati vu-Izux-aq0cs t59-qptg-4an8 -813c-13mj175 966ef">K/mcL< /td><td ID="Observati hv-ZuvLtetq-j x1rrf46-four- 8oa2-971b-56c d858333qd">13 0-400</td><td ID="Observati lv-Ggngugnz-n w8ajg10-kftu- 0ra8-740f-15v o403966cq"></ td><td ID="Observati gz-Hhctgs-ow3 mmi38-qznr-5j l1-742m-22eu1 46130pi">Leslie l</td> Granulocytes 90.4% 39.500-9 Above high normal <td [facility] 0 ID="Observati ([facility] fr-Wpqo-t75a0 Extended 1r9-p81t-841p Care -bcc5-s195rqz [place]) 43425">(825) Granulocytes< /td><td ID="Observati dt-Dbrkq-z28g 16y3-j98y-737 h-wxa1-i998el f36693">90.4< /td><td ID="Observati hj-Zwka-w17n2 3v5-e84b-802z -bcc5-j585pck 95291">%</td> <td ID="Observati xk-XypEurvw-d 42x51i7-l09z- 562o-qbr1-d00 0xpz78675">39 .500-90</td>< td ID="Observati nk-Ndbsiwsk-i 11e63e2-r15b- 972w-vpn3-a92 4plg54710">H< /td><td ID="Observati qs-Cjtvys-u94 q75e9-j94r-30 0r-olu4-n378a hj60966">Leslie l</td> Lymphocytes 4.5% 18.500-7 Below lower panic <td [facility] 0 limits ID="Observati ([facility] bm-Opoe-o9578 Extended vxr-bw99-3yjl Care -0hp0-61a7qqi Center) 441a7">(826) Lymphocytes</ td><td ID="Observati wh-Jybov-i174 9gxu-rd65-1nj m-2eg6-22d0zb f441a7">4.5</ td><td ID="Observati mg-Xxeh-a3687 eai-da89-7trn -3tx2-28a2vts 441a7">%</td> <td ID="Observati df-JftZfodz-m 5152bcb-be69- 0yfm-9hr1-83j 4nbp235m6">18 .500-70</td>< td ID="Observati sc-Qlrhxygb-y 5152bcb-be69- 1dxv-6dw2-79s 3zlg157b0">LL </td><td ID="Observati tt-Nmajdh-e91 66fvs-mp28-8c nw-8gm6-60m6l ll373m4">Leslie l</td> Monocytes 4.5% 2.500-15 <td [facility] ID="Observati ([facility] tf-Elad-3v3ri Extended 8q4-s1cu-4c0s Care -8150-448728p [place]) 8b97a">(827) Monocytes</td ><td ID="Observati ji-Cvbjf-0t0g w1z5-y0zh-4t4 w-0557-568923 e8b97a">4.5</ td><td ID="Observati dv-Btep-2i0ud 0v2-d0ve-8m9g -8150-738593l 8b97a">%</td> <td ID="Observati lw-KonIkoal-2 p2bv8t2-x2ps- 6x9s-6784-259 335h5p20p">2. 500-15</td><t d ID="Observati yy-Yiqqbzgh-9 x8zw2s6-d2ct- 7b0c-4071-994 696f9k40b"></ td><td ID="Observati rx-Ipwevb-8k4 st4h9-a3qh-6g 5z-9763-18692 4k8t96m">Leslie l</td> Eosinophils 0.2% 0.5-3.0 Below low normal <td [facility] ID="Observati ([facility] hc-Xlnb-y83by Extended 43v-o691-7379 Care -n60p-1o03470 [place]) 10370">(828) Eosinophils</ td><td ID="Observati ct-Ddoij-h28p j07y-a305-885 7-h84t-7a9831 025376">0.2</ td><td ID="Observati ef-Eyrz-o00kr 54s-t558-4832 -r97o-4l20175 46459">%</td> <td ID="Observati jp-TefWkpko-l 17tq34m-c817- 3326-b69j-3e4 374969634">0. 5-3.0</td><td ID="Observati cp-Azqrcmzi-h 67pd00c-d857- 8689-r08j-3w3 126134643">L< /td><td ID="Observati ki-Ovafgw-g75 lq43q-v305-86 25-w09y-8v098 8108863">Leslie l</td> Basophil 0.4% 0-2.000 <td [facility] ID="Observati ([facility] lu-Hjiv-26576 Extended 3w1-ls67-71gh Care -5e88-6w1385o [place]) fda44">(829) Basophil</td> <td ID="Observati ej-Tnnur-0211 00j4-oi38-21d a-0c33-4k6394 cfda44">0.4</ td><td ID="Observati cv-Kvkl-64733 0x7-uf66-24ip -2y78-3c7673x fda44">%</td> <td ID="Observati iq-FwdVcwnn-5 32791r2-mz07- 35zm-0d28-2i7 623iykr47">0- 2.000</td><td ID="Observati lh-Yznygrca-6 33594g3-xp67- 24iv-0d04-5p7 876gfrg39"></ td><td ID="Observati um-Ghmcuv-120 284q8-qd51-06 dl-9r58-6f469 7ukul87">Leslie l</td> Absolute 15.9K/mc 1.6-6.0 Above high normal <td [facility] Neutrophil L ID="Observati ([facility] Count nx-Lfhl-ii877 Extended jhy-a91p-2psp Care -u494-2651g97 [place]) c9e0d">(921) Absolute Neutrophil Count</td><td ID="Observati ug-Zehyw-kc90 3pnu-v72p-8gs h-w237-1037r0 1c9e0d">15.9< /td><td ID="Observati ed-Vwqh-pj675 bki-a78y-3cvi -e047-7696q82 c9e0d">K/mcL< /td><td ID="Observati fl-UbiNftbh-n e069pea-m95n- 9nir-y221-115 2o69o4r5y">1. 6-6.0</td><td ID="Observati di-Lhyhlygc-k w927scg-b39c- 4fzz-g739-250 9z47q5t5m">H< /td><td ID="Observati uv-Lkesbb-ld1 71vig-i77u-5q fx-g110-0084x 69p9k1u">Leslie l</td> ID Date Data Source [id number] 01/12/2019 12:30:00 PM EDT [facility] ([facility]) Name Value Range Interpretation Description Data Sup porting Code Source(s) Document(s ) Dilantin 3.8mcg/mL 10.0-20.0 Below lower panic <td [facility] limits ID="Observatio ([facility] d-Xhib-6kv0f62 Extended k-22d4-7n1499d1-9x42-j5 [facility]) 78-414hc718j76 b">(30200) Dilantin</td>< td ID="Observatio b-Gfdar-3kc3w6 8c-36i5-5x57-a 278-681dp324t9 5b">3.8</td><t d ID="Observatio e-Wofj-8jm6z76 v-42d1-7w3658p4-7z61-n6 78-007zs945u89 b">mcg/mL</td> <td ID="Observatio v-MylPmtuu-4xd 3l28h-14o2-3i2 2-t746-338ua09 3b05b">10.0-20 .0</td><td ID="Observatio x-Uaiidono-8hf 0r81k-72y8-7k6 4-x049-040te56 3b05b">LL</td> <td ID="Observatio y-Esinyq-7ft0n 75f-26d0-2v45- b260-040zp259e 05b">Final</td > ID Date Data Source [id number] 01/12/2019 12:30:00 PM EDT [facility] ([facility]) Name Value Range Interpretation Description Data Sup porting Code Source(s) Document(s ) Sodium 139meq/L 136-145 <td [facility] ID="Observatio ([facility] e-Oapn-f196680 Extended 9-0gl1-78q82ne3-28o3-sc [facility]) d5-695xnk3eahl d">(40717) Sodium</td><td ID="Observatio z-Ixiuc-q13167 50-0av3-20d2-b dd5-719qhh3lsy ed">139</td><t d ID="Observatio w-Nxvx-m828717 1-5kl0-06k94tk4-87m9-gd d5-635usf8nopc d">meq/L</td>< td ID="Observatio o-YfcUenpo-a56 81469-6wh4-31j 0-foc5-561bml0 dbded">136-145 </td><td ID="Observatio w-Vawkypjp-f76 04441-7ac7-76k 2-ilw4-743cwr9 dbded"></td><t d ID="Observatio f-Mapdub-b8187 628-0bx5-89e5- bdd5-452gvo8np ded">Final</td > Potassium 5.4meq/L 3.4-5.5 <td [facility] ID="Observatio ([facility] h-Cxfm-323h188 Extended 0-trb5-3770-b8 [facility]) 47-7350661ta15 b">(92955) Potassium</td> <td ID="Observatio c-Licpf-396b84 26-egc3-5532-b 847-2473637id9 3b">5.4</td><t d ID="Observatio b-Ypzr-869l815 6-vku1-1765-b8 47-2882627pp43 b">meq/L</td>< td ID="Observatio h-XugKxvkz-734 v7479-ofr6-613 7-t004-2839739 af53b">3.4-5.5 </td><td ID="Observatio y-Llkhznsq-538 v9997-ner8-093 4-d857-2922352 af53b"></td><t d ID="Observatio i-Unsahj-119d8 741-npg0-8783- e755-5904655ne 53b">Final</td > Carbon 25meq/L 22-30 <td [facility] Dioxide ID="Observatio ([facility] l-Sohc-274389i Extended 5-ove9-3z2d-a5 [facility]) 04-79c9wq55zoy b">(34846) Carbon Dioxide</td><t d ID="Observatio n-Grojm-739271 q7-zpw5-1p3v-a 504-27k8oo53xv db">25</td><td ID="Observatio x-Yzld-989077p 2-vsi2-9g0t-a5 04-76j3xd51vgg b">meq/L</td>< td ID="Observatio k-QwqYwbdn-801 550t7-rdv8-9p8 u-f767-41l0xm0 8ebdb">22-30</ td><td ID="Observatio r-Fdslhdiz-275 377z3-xyo9-6h2 z-w581-98b8jx5 8ebdb"></td><t d ID="Observatio v-Xtbhnx-14943 2k3-ryb2-9n1e- r657-97x1se77m bdb">Final</td > Chloride 101meq/L 98-107 <td [facility] ID="Observatio ([facility] z-Ulxb-uv00793 Extended 1-r717-6ng3r124-4ct4-67 [facility]) 8d-8o2bph6sl8x f">(24651) Chloride</td>< td ID="Observatio f-Obnen-yz6117 89-j282-1ig7-8 98d-4u5znh2rc0 df">101</td><t d ID="Observatio b-Wgcq-gf86746 4-n079-8qw6i274-0wh7-95 8d-6a7zcy9kq4y f">meq/L</td>< td ID="Observatio f-NmcLhpoc-al1 13810-s252-6tl 5-365y-4y7hsz7 dc3df">98-107< /td><td ID="Observatio k-Mstvpndj-ta6 70767-b546-6nf 4-229r-4c7luc0 dc3df"></td><t d ID="Observatio c-Dsaqpg-jn379 541-k719-8ni8- 898d-8a2bvp0ox 3df">Final</td > Glucose 52mg/dL 70-106 Below lower panic <td [facility] limits ID="Observatio ([facility] c-Molw-a16ts1f Extended [facility]-0s44[facility]80[facility] f6-x10y6x7a0i1 7">(62270) Glucose</td><t d ID="Observatio k-Rpucs-s33ez9 d7-1r25-7676-b ff6-g04s0a5f6k 87">52</td><td ID="Observatio j-Tmpl-l97kr0k 1-4e86-14543i55-7272-lb f6-g77u3w5k9p0 7">mg/dL</td>< td ID="Observatio p-LecTfhtu-f90 wg4m6-9d40-687 4-zxv8-o59s0u8 b3b87">70-106< /td><td ID="Observatio z-Jojlvblf-a60 fi8k8-0e23-120 4-wod8-l20o0a0 b3b87">LL</td> <td ID="Observatio u-Sijadh-k03qg 7z5-9n55-7098- bff6-e05v5w0u9 b87">Final</td > Calcium 8.9mg/dL 8.4-10.2 <td [facility] ID="Observatio ([facility] y-Wblu-449v7x1 Extended y-mk96-8903oj27-1078-0z [facility]) 67-l8y68iqmd51 e">(51752) Calcium</td><t d ID="Observatio t-Focza-602j9f 8z-jw38-5211-9 x43-a0v25nkdi8 8e">8.9</td><t d ID="Observatio q-Yvyu-001i2x7 k-vv48-3191jb04-4406-1d 67-f7a08zplj03 e">mg/dL</td>< td ID="Observatio k-KncXsupx-633 h4l7k-in21-189 2-9u80-d1s45tr ae98e">8.4-10. 2</td><td ID="Observatio d-Enkviams-069 z0d1j-tr11-626 1-4p06-c6b98ig ae98e"></td><t d ID="Observatio i-Ozbyyu-889x1 w4h-qw91-8772- 6j83-o1x47wxua 98e">Final</td > Urea Nitrogen 23mg/dL 9-20 Above high normal <td [facility] E ID="Observatio ([facility] h-Cepz-2q2a00x Extended v-u328-063ai831-799s-c3 [facility]) 7f-2p5vq8030i0 7">(40847) Urea Nitrogen</td>< td ID="Observatio y-Obvma-2y4s13 di-z988-090y-a 77f-0h3mw7089a 47">23</td><td ID="Observatio v-Wcdd-9c4a17a p-f038-116nz930-608f-h1 7f-3l4af8945s8 7">mg/dL</td>< td ID="Observatio g-FjwJbyud-0z7 j59hz-p370-304 u-d44v-9t8zk89 32a47">9-20</t d><td ID="Observatio q-Gzecfnht-5o7 m28ia-q938-652 t-u12y-0d3wx39 32a47">H</td>< td ID="Observatio f-Ufrvzf-2j1z7 9aw-s486-584s- p49z-9j0hy4342 a47">Final</td > Creatinine 0.40mg/d 0.66-1.2 Below low normal <td [facility] Serum L 5 ID="Observatio ([facility] v-Ombj-004685m Extended 2-4680-7154[address]) 37-82ub6w7567z 2">(41799) Creatinine Serum</td><td ID="Observatio g-Bapxc-986437 n1-4702-3069-9 037-06el4m1817 f2">0.40</td>< td ID="Observatio t-Wefx-656779h 0-9167-9928-90 37-34bp0i2199y 2">mg/dL</td>< td ID="Observatio t-DizCsrai-640 781w8-8516-992 9-5481-34pa2l8 233f2">0.66-1. 25</td><td ID="Observatio v-Tihyamts-847 953f5-9914-170 1-7216-39gp5i0 233f2">L</td>< td ID="Observatio f-Nickfw-02905 6t8-6906-5442- 37-76xg8i763 3f2">Final</td > Protein, 6.3g/dL 6.3-8.2 <td [facility] Total ID="Observatio ([facility] r-Lxqu-92e8732 Extended 4-cj68-28a0wn13-98i6-5i [facility]) cb-u2769f4088j a">(52780) Protein, Total</td><td ID="Observatio v-Wirfl-97a690 85-jz28-60e2-9 ecb-v1386b9662 fa">6.3</td><t d ID="Observatio m-Inkx-94u1588 5-em19-59b3nv59-81h6-0e cb-p9872v0615i a">g/dL</td><t d ID="Observatio y-DkcXsijx-74m 66020-ai86-43i 1-5xhl-g8158x4 747fa">6.3-8.2 </td><td ID="Observatio p-Fsuiscya-84i 95620-we83-61x 3-2rhu-r5994d3 747fa"></td><t d ID="Observatio r-Aqezsq-89x68 535-gv84-33v5- 9ecb-w6941f407 7fa">Final</td > Albumin 3.5g/dL 3.5-5.0 <td [facility] ID="Observatio ([facility] g-Ntea-431s961 Extended p-9767-0c53-9d [facility]) 08-b194o52j9qx 0">(29861) Albumin</td><t d ID="Observatio k-Oguex-239a70 1d-9479-4u39-9 n53-e599k35g0t f0">3.5</td><t d ID="Observatio s-Vcfo-345y079 y-3723-4w77-9d 08-q523t92e1qe 0">g/dL</td><t d ID="Observatio f-NyyMqebe-929 z815n-7326-7q2 7-3f36-d518l08 e6cf0">3.5-5.0 </td><td ID="Observatio e-Qnhxxlzz-735 l248j-3492-2g9 4-6j23-b227k06 e6cf0"></td><t d ID="Observatio s-Xyacof-804p7 89a-8409-3y26- 8q03-a663s43b0 cf0">Final</td > Globulin 2.8g/dL 2.1-3.5 <td [facility] ID="Observatio ([facility] u-Nagh-091n4am Extended 5-61r1-246j99a3-626x-o4 [facility]) 42-02x864t1xfr 9">(51774) Globulin</td>< td ID="Observatio n-Kftpp-220p0v j7-20t4-964g-a 342-87m286i3iu d9">2.8</td><t d ID="Observatio t-Bodi-689h6ly 6-91n5-450o87v1-501h-x3 42-14g268a1dfd 9">g/dL</td><t d ID="Observatio a-TazBmucr-695 b2xh0-77b7-177 o-e557-81r170m 3bed9">2.1-3.5 </td><td ID="Observatio w-Xbkuvtle-554 h7cc7-36l7-319 l-m356-88v207r 3bed9"></td><t d ID="Observatio u-Cvhhul-887h4 wg9-75d6-037p- k347-54z954d8x ed9">Final</td > Bilirubin, 0.7mg/dL 0.0-1.1 <td [facility] Total ID="Observatio ([facility] p-Eayq-7c6yu17 Extended 1-effc-692b-b6 [facility]) 6b-7cpfw3m728g b">(78570) Bilirubin, Total</td><td ID="Observatio t-Cwrlo-2g5jl8 00-myfm-057n-b 66b-5izvs8u032 fb">0.7</td><t d ID="Observatio l-Pqvc-2v0gk25 9-wady-930c-b6 6b-8uhvl8p791q b">mg/dL</td>< td ID="Observatio v-RfjTtmtj-4d7 yv097-wpwf-857 z-j97t-1yjsi3p 245fb">0.0-1.1 </td><td ID="Observatio p-Tdrhloyq-9k1 hd762-uvyy-058 f-o50e-9fhbu4k 245fb"></td><t d ID="Observatio n-Eqvvwl-7p5uh 693-yzbn-611x- q90p-6lvpx5i81 5fb">Final</td > SGOT (AST) 28U/L 17-59 <td [facility] ID="Observatio ([facility] u-Eatv-1990992 Extended 4-241v-3522-8b [facility]) 39-q049710250e 3">(99299) SGOT (AST)</td><td ID="Observatio b-Nhxgw-958183 68-515m-0145-8 n84-u892157535 f3">28</td><td ID="Observatio b-Rwoa-9274388 6-549d-9187-8b 39-i300327833h 3">U/L</td><td ID="Observatio h-NqpQpzbb-196 11068-790w-980 8-2r57-k074042 531f3">17-59</ td><td ID="Observatio o-Ptidjudj-775 00218-009d-471 5-5u12-z441557 531f3"></td><t d ID="Observatio s-Pobazv-06500 887-120f-2774- 8v78-z93946627 1f3">Final</td > SGPT (ALT) 34U/L 21-72 <td [facility] ID="Observatio ([facility] j-Kjqf-15279iw Extended w-4803-9ah5-a4 [facility]) 76-bj18611l2h4 c">(10889) SGPT (ALT)</td><td ID="Observatio p-Wvdac-70676q fk-8015-5dh0-a 476-xh16817v7q 6c">34</td><td ID="Observatio a-Krkx-01199ql k-1321-9we9-a4 76-ks68524p3o8 c">U/L</td><td ID="Observatio a-ZniTqgyb-167 10jqc-6013-6iz 1-w299-iw95223 d0a6c">21-72</ td><td ID="Observatio l-Gxxkkolw-050 69stm-3993-5ml 8-x708-vj26306 d0a6c"></td><t d ID="Observatio n-Usrxnx-33868 tcz-6328-9nt5- g222-fw96003l2 a6c">Final</td > Alkaline 83U/L 38-126 <td [facility] Phosphatase, ID="Observatio ([facility] o-Jpbi-38s9i1i Extended d-03d1-9v7031p9-3f41-uh [facility]) 55-zk2j2jk830u 3">(01175) Alkaline Phosphatase, Serum</td><td ID="Observatio y-Pfwjt-48b6a6 jk-28n1-2c69-a u74-ty9l1mk310 a3">83</td><td ID="Observatio v-Uwzk-63a5l9y r-45h9-6t7169b2-7u47-rp 55-rh1w8qi952j 3">U/L</td><td ID="Observatio q-WfuWjiud-17x 1m2pa-49d7-6e9 1-oe83-bg7h3iy 728a3">38-126< /td><td ID="Observatio n-Uwhpvhjx-83e 9d7gk-77e1-5t0 0-zm88-cf2l7fc 728a3"></td><t d ID="Observatio l-Wdbhjw-10f4m 3ev-31w2-2k58- yy18-vn4b0ff96 8a3">Final</td > Procedure
[2020-06-04] MEDS ORDERED: AZITHROMYCIN 250 MG TABLET PO ONE (03:17)
[2020-06-04] MEDS ORDERED: AZITHROMYCIN 250 MG TABLET ONE (03:18)
[2020-06-04] MEDS ORDERED: predniSONE 20 MG TABLET (UD) ONE (03:18)
[2020-06-04] MEDS ORDERED: predniSONE 20 MG TABLET (UD) PO ONE (03:18)
--- NOTE | 2020-06-04 03:19 | PDOC ---
History of Present Illness - General Chief Complaint: Shortness of Breath Stated Complaint: SOB Time Seen by Provider: 06/04/20 02:17 History Source: Patient Exam Limitations: No Limitations - History of Present Illness Initial Comments: 06/04/20 03:30 74M with PMH of COPD (2L home O2), pulm HTN, chronic bronchitis, CAD (s/p stent), HTN presents to ED with SOB. He states worsening SOB recently, similar to COPD exacerbation in the past. Reports worsening productive cough. Denies fever/chills, cp, nvdc, abdominal pain. PMH: as in HPI SH: see below Meds: see med list Allergies: NKDA ROS GENERAL/CONSTITUTIONAL: No fever or chills. No weakness. HEENT: No change in vision. No ear pain or discharge. No sore throat. CARDIOVASCULAR: No chest pain, +shortness of breath RESPIRATORY: +cough; no wheezing, or hemoptysis. GASTROINTESTINAL: No nausea, vomiting, diarrhea or constipation. GENITOURINARY: No dysuria, frequency, or change in urination. MUSCULOSKELETAL: No joint or muscle swelling or pain. No neck or back pain. SKIN: No rash NEUROLOGIC: No headache, vertigo, loss of consciousness, or change in strength/sensation. ENDOCRINE: No increased thirst. No abnormal weight change HEMATOLOGIC/LYMPHATIC: No anemia, easy bleeding, or history of blood clots. ALLERGIC/IMMUNOLOGIC: No hives or skin allergy. PE GENERAL: Awake, alert, and fully oriented; no acute distress HEAD: No signs of trauma, normocephalic, atraumatic EYES: PERRLA, EOMI, sclera anicteric, conjunctiva clear ENT: Auricles normal inspection, hearing grossly normal, nares patent, moist mucosa, oropharynx clear without exudates. NECK: Normal ROM, supple, no LAD, JVD, or masses HEART: Regular rate and rhythm, normal S1/S2, no murmurs, rubs or gallops, peripheral pulses normal and equal bilaterally. LUNGS: No distress, speaks full sentences, clear to auscultation bilaterally w/o wheezes ABDOMEN: Soft, nontender. No guarding, no rebound. No masses EXTREMITIES: Normal inspection, Normal range of motion, no edema. No clubbing or cyanosis. NEUROLOGICAL: CNII-XII grossly intact. Normal speech, no focal sensorimotor deficits SKIN: Warm, Dry, normal turgor, no rashes or lesions noted Mason Willis, PGY1 Emergency Medicine Past History - Medical History Allergies/Adverse Reactions: Allergies Allergy/AdvReac Type Severity Reaction Status Date / Time No Known Drug Allergies Allergy Verified 06/04/20 01:53 Home Medications: Ambulatory Orders Phenytoin Na Extended [Dilantin -] 100 mg PO BID 06/11/14 Montelukast Na [Singulair -] 10 mg PO HS #90 tablet 06/15/14 Simvastatin [Zocor -] 20 mg PO HS #90 06/15/14 Guaifenesin Dm [Robitussin Dm -] 10 ml PO Q4H PRN cup 10/25/18 Diltiazem Cd [Cardizem Cd -] 120 mg PO DAILY cap.cd.24h 01/11/19 Albuterol 0.083% Nebulizer Arlyn [Ventolin 0.083% Nebulizer Soln -] 1 amp NEB RQID PRN 04/17/19 Acetaminophen [Tylenol .Regular Strength -] 650 mg PO Q8H PRN tablet 04/23/19 Aspirin 81 mg PO DAILY 05/30/19 Esomeprazole Magnesium [Nexium 24Hr] 40 mg PO DAILY 05/30/19 Fexofenadine/Pseudoephedrine [Kalpana-D 12 Hour Tablet] 1 each PO BID PRN 05/30/19 Levalbuterol Tartrate [Xopenex Hfa] 15 gm IH DAILY 05/30/19 Tiotropium [place] [Spiriva] 18 mcg IH DAILY 05/30/19 Fluticasone/Salmeterol [Advair 250-50 Diskus] 1 each IH DAILY #1 blst.w.dev 06/03/19 Docusate Sodium [Colace -] 100 mg PO BID #60 capsule 06/07/19 Sennosides [Senna] 8.6 mg PO DAILY #60 tablet 06/07/19 Azithromycin 500 mg PO ONCE 3 Days #3 tablet 06/04/20 predniSONE [Deltasone -] 50 mg PO DAILY 4 Days #4 tablet 06/04/20 Anemia: No Cardiac Disorders: Yes (CAD s/p PCI stent) CVA: Yes COPD: Yes DVT: No Dialysis: No GI Disorders: Yes (GERD) HTN: Yes Hypercholesterolemia: Yes Kidney Stones: No Seizures: Yes - Surgical History Orthopedic Surgery: Yes (rt total hip) - Immunization History Immunization Up to Date: Yes - Psycho-Social/Smoking History Smoking Status: No Smoking History: Never smoked Have you smoked in the past 12 months: No Number of Cigarettes Smoked Daily: 0 If you are a former smoker, when did you quit?: 14 years Information on smoking cessation initiated: No 'Breaking Loose' booklet given: 02/04/16 - Substance Abuse Hx (Audit-C & DAST Scrn) How often the patient has a drink containing alcohol: Never Score: In Men: 4 or > Positive; In Women: 3 or > Positive: 0 Screen Result (Pos requires Nsg. Audit-10AR): Negative In the last yr the pt used illegal drug/Rx for NonMed reason: No Score: Yes response is considered Positive: 0 Screen Result (Positive result requires Nsg. DAST-10): Negative *Physical Exam - Vital Signs Last Vital Signs Temp Pulse Resp BP Pulse Ox 98.3 F 67 22 H 132/72 100 06/04/20 01:50 06/04/20 01:50 06/04/20 01:50 06/04/20 01:50 06/04/20 02:05 ED Treatment Course - LABORATORY CBC & Chemistry Diagram: 06/04/20 03:00 Medical Decision Making - Medical Decision Making 06/04/20 03:38 74M with PMH of COPD presents to ED with SOB. He was afebrile, not tachypnic, no coughing in ED, lungs were CTA. Does not appear clinically to be in acute on chronic COPD exacerbation -> Will give duonebs, steroids, azithromycin 06/04/20 04:12 CXR negative. +d-dimer -> CTA chest 06/04/20 07:03 CTA chest negative. Pt stable for d/c with azithromycin and prednisone sent out. Mason Willis, PGY1 Emergency Medicine Discharge - Discharge Information Problems reviewed: Yes Clinical Impression/Diagnosis: COPD (chronic obstructive pulmonary disease) Qualifiers: COPD type: chronic bronchitis Chronic bronchitis type: unspecified Qualified Code(s): J42 - Unspecified chronic bronchitis Condition: Fair Disposition: HOME - Admission No - Additional Discharge Information Prescriptions: Azithromycin 500 mg PO ONCE 3 Days #3 tablet predniSONE [Deltasone -] 50 mg PO DAILY 4 Days #4 tablet - Follow up/Referral Referrals: Flex Mo MD [Primary Care Provider] - - Patient Discharge Instructions Patient Printed Discharge Instructions: DI for Shortness of Breath Additional Instructions: You were seen in the ED for shortness of breath. In the ED you were evaluated with labwork and imaging. Your results were normal. There does not appear to be an acute need for immediate hospitalization. You are advised to follow up with your Primary Care Physician within 1 week. You were given a prescription for azithromycin and prednisone. Return to the ED immediately if you experience worsening shortness of breath, cough, or fever. - Post Discharge Activity
[2020-06-04 03:21] LABS: INR 1.2 (0.83-1.09); PROTHROMBIN TIME (PATIENT) 14.2 SEC (9.7-13.0)
--- NOTE | 2020-06-04 03:22 | PDOC ---
History of Present Illness - General Chief Complaint: Shortness of Breath Stated Complaint: SOB Time Seen by Provider: 06/04/20 02:17 Past History - Medical History Allergies/Adverse Reactions: Allergies Allergy/AdvReac Type Severity Reaction Status Date / Time No Known Drug Allergies Allergy Verified 06/04/20 01:53 Home Medications: Ambulatory Orders Phenytoin Na Extended [Dilantin -] 100 mg PO BID 06/11/14 Montelukast Na [Singulair -] 10 mg PO HS #90 tablet 06/15/14 Simvastatin [Zocor -] 20 mg PO HS #90 06/15/14 Guaifenesin Dm [Robitussin Dm -] 10 ml PO Q4H PRN cup 10/25/18 Diltiazem Cd [Cardizem Cd -] 120 mg PO DAILY cap.cd.24h 01/11/19 Albuterol 0.083% Nebulizer Arlyn [Ventolin 0.083% Nebulizer Soln -] 1 amp NEB RQID PRN 04/17/19 Acetaminophen [Tylenol .Regular Strength -] 650 mg PO Q8H PRN tablet 04/23/19 Aspirin 81 mg PO DAILY 05/30/19 Esomeprazole Magnesium [Nexium 24Hr] 40 mg PO DAILY 05/30/19 Fexofenadine/Pseudoephedrine [Kalpana-D 12 Hour Tablet] 1 each PO BID PRN 05/30/19 Levalbuterol Tartrate [Xopenex Hfa] 15 gm IH DAILY 05/30/19 Tiotropium [place] [Spiriva] 18 mcg IH DAILY 05/30/19 Fluticasone/Salmeterol [Advair 250-50 Diskus] 1 each IH DAILY #1 blst.w.dev 06/03/19 Docusate Sodium [Colace -] 100 mg PO BID #60 capsule 06/07/19 Sennosides [Senna] 8.6 mg PO DAILY #60 tablet 06/07/19 Prednisone See Taper PO DAILY #32 tablet 11/21/19 Anemia: No Cardiac Disorders: Yes (CAD s/p PCI stent) CVA: Yes COPD: Yes DVT: No Dialysis: No GI Disorders: Yes (GERD) HTN: Yes Hypercholesterolemia: Yes Kidney Stones: No Seizures: Yes - Surgical History Orthopedic Surgery: Yes (rt total hip) - Immunization History Immunization Up to Date: Yes - Psycho-Social/Smoking History Smoking Status: No Smoking History: Never smoked Have you smoked in the past 12 months: No Number of Cigarettes Smoked Daily: 0 If you are a former smoker, when did you quit?: 14 years Information on smoking cessation initiated: No 'Breaking Loose' booklet given: 02/04/16 - Substance Abuse Hx (Audit-C & DAST Scrn) How often the patient has a drink containing alcohol: Never Score: In Men: 4 or > Positive; In Women: 3 or > Positive: 0 Screen Result (Pos requires Nsg. Audit-10AR): Negative In the last yr the pt used illegal drug/Rx for NonMed reason: No Score: Yes response is considered Positive: 0 Screen Result (Positive result requires Nsg. DAST-10): Negative *Physical Exam - Vital Signs Last Vital Signs Temp Pulse Resp BP Pulse Ox 98.3 F 67 22 H 132/72 100 06/04/20 01:50 06/04/20 01:50 06/04/20 01:50 06/04/20 01:50 06/04/20 02:05 ED Treatment Course - LABORATORY CBC & Chemistry Diagram: 06/04/20 03:00 Discharge - Discharge Information Condition: Fair - Follow up/Referral Referrals: Flex Mo MD [Primary Care Provider] - - Patient Discharge Instructions - Post Discharge Activity
[2020-06-04 03:24] LABS: ACTIVATED PTT 29.2 SECONDS (25.2-36.5)
[2020-06-04] MEDS: ALBUTEROL SO4 2.5/IPRATROPIUM 0.5 INH SOL 3 ML VIAL.NEB. NEB SCH ×3 (03:25→03:49)
[2020-06-04 03:44] LABS: ALBUMIN 3.3 g/dl (3.4-5.0); ALK PHOS 169 U/L (45-117); ANION GAP 6 MMOL/L (8-16); BILIRUBIN,TOTAL 0.3 mg/dL (0.2-1); BLOOD UREA NITROGEN 5.2 mg/dL (7-18); CALCIUM 8.1 mg/dL (8.5-10.1); CHLORIDE 105 mmol/L (98-107); CO2 30 mmol/L (21-32); CREATININE 0.4 mg/dL (0.55-1.3); GLUCOSE,RANDOM 81 mg/dL (74-106); N-TERMINAL BNP 160.9 pg/ml (5-450); POTASSIUM 3.3 mmol/L (3.5-5.1); SGOT/AST 10 U/L (15-37); SGPT/ALT 10 U/L (13-61); SODIUM 141 mmol/L (136-145); TOT PROT 6.8 g/dl (6.4-8.2)
[2020-06-04] MEDS ORDERED: FOLIC ACID INJECTION - 1 MG, THIAMINE HCL 100 MG, MULTIVIT INJECTION ADULT 10 ML in SOD... IVPB ONE (03:57)
[2020-06-04] MEDS ORDERED: POTASSIUM CHLORIDE TABS 20 MEQ TABLET.ER (FP) PO ONE ×2 (03:57→03:58)
[2020-06-04] MEDS ORDERED: POTASSIUM CHLORIDE ORAL LIQUID 20 MEQ/15 ML ONE (04:14)
[2020-06-04 06:14] VITALS: TEMP 97.8
[2020-06-04 06:22] VITALS: BP 108/65
[2020-06-04 07:46] VITALS: PULSE 68
--- NOTE | 2020-06-04 08:47 | PDOC ---
*Physical Exam - Vital Signs Last Vital Signs Temp Pulse Resp BP Pulse Ox 97.8 F 68 19 108/65 100 06/04/20 06:13 06/04/20 07:45 06/04/20 06:13 06/04/20 06:22 06/04/20 07:45 - Physical Exam 06/04/20 08:[address] Lopez called to report overread of CTA chest study, and it was found to have fx of the R 7th and 9th rib. Will place call back for patient ED Treatment Course - LABORATORY CBC & Chemistry Diagram: 06/04/20 03:00 - ADDITIONAL ORDERS Additional order review: Laboratory Results 06/04/20 06/04/20 06/04/20 03:00 03:00 03:00 PT with INR 14.20 H INR 1.20 H PTT (Actin FS) 29.2 D-Dimer 2030 H Sodium 141 Potassium 3.3 L Chloride 105 Carbon Dioxide 30 Anion Gap 6 L BUN 5.2 L Creatinine 0.4 L Est GFR (CKD-EPI)AfAm 134.66 Est GFR (CKD-EPI)NonAf 116.19 Random Glucose 81 Calcium 8.1 L Total Bilirubin 0.3 AST 10 L ALT 10 L Alkaline Phosphatase 169 H Creatine Kinase 36 Troponin I < 0.02 B-Natriuretic Peptide 160.9 Total Protein 6.8 Albumin 3.3 L - Medications Given in the ED: ED Medications Discontinued Medications Generic Name Dose Route Start Last Admin Trade Name Freq PRN Reason Stop Dose Admin Albuterol/Ipratropium 1 amp 06/04/20 03:30 06/04/20 03:49 Duoneb - NEB 06/04/20 04:16 1 amp Q15M EUNICE Administration Azithromycin 500 mg 06/04/20 03:17 06/04/20 03:26 Zithromax - PO 06/04/20 03:18 500 mg ONCE ONE Administration Folic Acid 1 mg/ Thiamine HCl 1,000 mls @ 125 mls/hr 06/04/20 03:57 06/04/20 04:34 100 mg/ Multivitamins/Minerals IVPB 06/04/20 11:56 125 mls/hr 10 ml/ Sodium Chloride ONCE ONE Administration Potassium Chloride 40 meq 06/04/20 03:57 06/04/20 04:17 K-Dur - PO 06/04/20 03:58 40 meq ONCE ONE Administration Potassium Chloride 40 meq 06/04/20 03:58 06/04/20 04:15 K-Dur - PO 06/04/20 03:59 Not Given ONCE ONE Prednisone 40 mg 06/04/20 03:18 06/04/20 03:25 Deltasone - PO 06/04/20 03:19 40 mg ONCE ONE Administration Discharge - Discharge Information Problems reviewed: Yes Clinical Impression/Diagnosis: COPD (chronic obstructive pulmonary disease) Qualifiers: COPD type: chronic bronchitis Chronic bronchitis type: unspecified Qualified Code(s): J42 - Unspecified chronic bronchitis Condition: Fair Disposition: HOME - Additional Discharge Information Prescriptions: Azithromycin 500 mg PO ONCE 3 Days #3 tablet predniSONE [Deltasone -] 50 mg PO DAILY 4 Days #4 tablet - Follow up/Referral Referrals: Flex Mo MD [Primary Care Provider] - - Patient Discharge Instructions Patient Printed Discharge Instructions: DI for Shortness of Breath Additional Instructions: You were seen in the ED for shortness of breath. In the ED you were evaluated with labwork and imaging. Your results were normal. There does not appear to be an acute need for immediate hospitalization. You are advised to follow up with your Primary Care Physician within 1 week. You were given a prescription for azithromycin and prednisone. Return to the ED immediately if you experience worsening shortness of breath, cough, or fever. - Post Discharge Activity
--- NOTE | 2020-06-04 13:31 | EKG ---
Test Reason : Blood Pressure : / mmHG Vent. 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
== END 2020-06-04 08:18 | disposition home or self-care (01) ==
LOC: JER 01:47
PROC: 3E0F7GC Introduction of Other Therapeutic Substance into Respiratory Tract, Via Natural or Artificial Opening (ICD-10-PCS; principal; 2020-06-04)
DX: J42 Unspecified chronic bronchitis (principal)
CPT/HCPCS: 36415; 71045-TC-FY; 71260-TC; 71275-TC; 80053; 82550; 83880; 84484; 85379; 85610; 85730; 93005; 93010; 94640; 99285-25; Q9967; U0003

== ENCOUNTER 2020-08-05 09:10 | Inpatient (IN) | payer OTHER ==
[2020-08-05] MEDS ORDERED: ACETAMINOPHEN 1000 MG/100 ML VIAL (NON FORMULARY) IVPB ONE (09:28)
[2020-08-05] MEDS ORDERED: SODIUM CHLORIDE 0.9% 500 ML INFUS.BAG IV ONE (09:29)
[2020-08-05] MEDS ORDERED: ACETAMINOPHEN INJECTION 100 ML IVPB ONE (10:09)
[2020-08-05 10:25] LABS: BASO % 0.3 % (0-2.0); EOS % 0.5 % (0-4.5); HEMATOCRIT 39.6 % (35.4-49); HEMOGLOBIN 12.8 GM/dL (11.7-16.9); LYMPH % 4.7 % (8-40); MCH 27.4 pg (25.7-33.7); MCHC 32.4 g/dl (32.0-35.9); MEAN CELL VOLUME 84.6 fl (80-96); MEAN PLT VOLUME 10.3 fl (7.5-11.1); MONO % 4.4 % (3.8-10.2); NEUT % 90.1 % (42.8-82.8); PLATELET COUNT 176 K/MM3 (134-434); RBC 4.68 M/mm3 (4.00-5.60); RDW 15.9 % (11.9-15.9); WHITE BLOOD COUNT 14.3 K/mm3 (4.0-10.0)
[2020-08-05 10:26] LABS: VENOUS BASE EXCESS -0.4 mmol/L (-2-2); VENOUS O2 SATURATION 70.1 % (70-80); VENOUS PCO2 43.4 mmHg (38-52); VENOUS PH 7.377 (7.310-7.410)
[2020-08-05 10:33] LABS: INR 1.15 (0.83-1.09); PROTHROMBIN TIME (PATIENT) 14.1 SEC (9.7-13.0)
[2020-08-05 10:37] LABS: CHLORIDE 103 mmol/L (98-107); POTASSIUM 4.4 mmol/L (3.5-5.1); SODIUM 139 mmol/L (136-145)
[2020-08-05 10:39] LABS: CALCIUM 8.9 mg/dL (8.5-10.1)
[2020-08-05 10:40] LABS: ALBUMIN 3.8 g/dl (3.4-5.0); ANION GAP 7 MMOL/L (8-16); BLOOD UREA NITROGEN 13.1 mg/dL (7-18); CO2 29 mmol/L (21-32); GLUCOSE,RANDOM 89 mg/dL (74-106); MAGNESIUM 2.2 mg/dL (1.8-2.4)
[2020-08-05 10:43] LABS: CREATININE 0.7 mg/dL (0.55-1.3); SGOT/AST 13 U/L (15-37); SGPT/ALT 14 U/L (13-61)
[2020-08-05 10:44] LABS: BILIRUBIN,TOTAL 0.4 mg/dL (0.2-1)
[2020-08-05 10:45] LABS: TOT PROT 7.7 g/dl (6.4-8.2)
[2020-08-05 10:46] LABS: ALK PHOS 158 U/L (45-117)
[2020-08-05] MEDS: SODIUM CHLORIDE 1,000 ML IV SCH (13:22)
[2020-08-05 13:27] LABS: EPI CELLS 35 /uL (0-25.1); HYALINE CASTS 9 /uL (0-3.1); PH,URINE >= 9.0 (5.0-8.0); URINE APPEARANCE CLOUDY; URINE BACTERIA >9,000 /uL (0-1359); URINE BILIRUBIN NEGATIVE (NEGATIVE); URINE COLOR YELLOW; URINE GLUCOSE (UA) NEGATIVE (NEGATIVE); URINE KETONE NEGATIVE (NEGATIVE); URINE LEUK ESTERASE NEGATIVE (NEGATIVE); URINE NITRITE POSITIVE (NEGATIVE); URINE PROTEIN NEGATIVE (NEGATIVE); URINE RBC 5 /uL (0-23.9)
[2020-08-05] MEDS ORDERED: CEFTRIAXONE 1,000 MG in DEXTROSE 5%-WATER - 50 ML IVPB ONE (13:38)
[2020-08-05] MEDS ORDERED: CEFTRIAXONE 1 GM/50 ML BAG ONE (13:53)
[2020-08-05] MEDS ORDERED: DOCUSATE SODIUM 100 MG CAPSULE (FP) PO PRN (14:36)
[2020-08-05] MEDS ORDERED: ALBUTEROL SO4 0.083% IH SOL 2.5 MG/3 ML VIAL.NEB. NEB PRN ×2 (14:36→14:40)
[2020-08-05] MEDS ORDERED: ALBUTEROL SO4 HFA INHALER IH PRN (14:42)
[2020-08-05 18:44] LABS: URINE WBC 213.3 /uL (0-25.8)
[2020-08-05] MEDS ORDERED: PHENYTOIN NA EXTENDED 100 MG CAPSULE (FP) ONE (23:54)
[2020-08-05] MEDS ORDERED: MONTELUKAST NA 10 MG TABLET ONE (23:55)
[2020-08-05] MEDS: PHENYTOIN NA EXTENDED 100 MG CAPSULE (FP) PO SCH (23:58)
[2020-08-05] MEDS: MONTELUKAST NA 10 MG TABLET PO SCH (23:58)
[2020-08-06] MEDS ORDERED: PHENYTOIN NA EXTENDED 100 MG CAPSULE (FP) ONE ×2 (09:40→12:12)
[2020-08-06] MEDS ORDERED: CEFTRIAXONE 2 GM/100 ML BAG IVPB ONE (09:40)
[2020-08-06] MEDS ORDERED: SENNOSIDES 8.6MG TABLET (FP) PO ONE (09:40)
[2020-08-06] MEDS ORDERED: ASPIRIN 81 MG CHEWABLE TABLETS ONE (09:40)
[2020-08-06] MEDS ORDERED: PATIENT'S OWN MEDICATION (NON-FORMULARY) (Tiotropium Bromide [Spiriva] 18 MCG Cap.W.Dev) IH SCH (10:00)
[2020-08-06] MEDS: CEFTRIAXONE 2 GM in DEXTROSE 5%-WATER 2 GM/100 ML BAG IVPB SCH (10:30)
[2020-08-06] MEDS: SENNOSIDES 8.6MG TABLET (FP) PO SCH (12:00)
[2020-08-06] MEDS: PHENYTOIN NA EXTENDED 100 MG CAPSULE (FP) PO SCH ×2 (12:00→21:57)
[2020-08-06] MEDS: ASPIRIN 81 MG CHEWABLE TABLETS PO SCH (12:00)
[2020-08-06 12:21] LABS: BASO % 0.5 % (0-2.0); EOS % 1.1 % (0-4.5); HEMATOCRIT 37.3 % (35.4-49); HEMOGLOBIN 11.8 GM/dL (11.7-16.9); LYMPH % 7.1 % (8-40); MCH 26.9 pg (25.7-33.7); MCHC 31.6 g/dl (32.0-35.9); MEAN CELL VOLUME 85.2 fl (80-96); MEAN PLT VOLUME 9.9 fl (7.5-11.1); MONO % 6.1 % (3.8-10.2); NEUT % 85.2 % (42.8-82.8); PLATELET COUNT 145 K/MM3 (134-434); RBC 4.38 M/mm3 (4.00-5.60); RDW 15.6 % (11.9-15.9); WHITE BLOOD COUNT 10.5 K/mm3 (4.0-10.0)
[2020-08-06 12:47] LABS: POTASSIUM 3.5 mmol/L (3.5-5.1)
[2020-08-06 12:48] LABS: CALCIUM 8.9 mg/dL (8.5-10.1)
[2020-08-06 12:49] LABS: BLOOD UREA NITROGEN 12.8 mg/dL (7-18); MAGNESIUM 2.1 mg/dL (1.8-2.4)
[2020-08-06 12:52] LABS: CREATININE 0.5 mg/dL (0.55-1.3)
[2020-08-06] MEDS: SODIUM CHLORIDE 1,000 ML IV SCH (14:10)
[2020-08-06] MEDS: TIOTROPIUM BROMIDE 2.5 MCG (SPIRIVA) RESPIMAT INHALER IH SCH (14:31)
[2020-08-06] MEDS: MONTELUKAST NA 10 MG TABLET PO SCH (21:57)
[2020-08-06] MEDS: HEPARIN NA (PORCINE) 5,000 UNITS/ML 1ML VIAL SQ SCH (21:57)
[2020-08-07 04:30] VITALS: BMI 17.7
[2020-08-07 08:22] LABS: BASO % 0.4 % (0-2.0); EOS % 1.3 % (0-4.5); HEMATOCRIT 36.2 % (35.4-49); HEMOGLOBIN 11.7 GM/dL (11.7-16.9); LYMPH % 6.6 % (8-40); MCH 27.1 pg (25.7-33.7); MCHC 32.3 g/dl (32.0-35.9); MEAN CELL VOLUME 84.1 fl (80-96); MEAN PLT VOLUME 10.1 fl (7.5-11.1); MONO % 6.1 % (3.8-10.2); NEUT % 85.6 % (42.8-82.8); PLATELET COUNT 142 K/MM3 (134-434); RDW 15.8 % (11.9-15.9); WHITE BLOOD COUNT 9.8 K/mm3 (4.0-10.0)
[2020-08-07] MEDS ORDERED: DEXTROSE 5%-WATER 100 ML IVPB ONE (08:22)
[2020-08-07 08:50] LABS: POTASSIUM 3.9 mmol/L (3.5-5.1)
[2020-08-07 08:57] LABS: CALCIUM 8.5 mg/dL (8.5-10.1)
[2020-08-07 09:00] LABS: ALBUMIN 3.5 g/dl (3.4-5.0); BLOOD UREA NITROGEN 9.1 mg/dL (7-18)
[2020-08-07 09:01] LABS: CREATININE 0.4 mg/dL (0.55-1.3)
[2020-08-07] MEDS: CEFTRIAXONE 2 GM in DEXTROSE 5%-WATER 2 GM/100 ML BAG IVPB SCH (09:02)
[2020-08-07] MEDS: TIOTROPIUM BROMIDE 2.5 MCG (SPIRIVA) RESPIMAT INHALER IH SCH (09:02)
[2020-08-07] MEDS: ASPIRIN 81 MG CHEWABLE TABLETS PO SCH (09:02)
[2020-08-07] MEDS: PHENYTOIN NA EXTENDED 100 MG CAPSULE (FP) PO SCH ×2 (09:02→22:37)
[2020-08-07 09:05] LABS: BILIRUBIN,TOTAL 0.4 mg/dL (0.2-1)
[2020-08-07] MEDS: HEPARIN NA (PORCINE) 5,000 UNITS/ML 1ML VIAL SQ SCH ×2 (11:31→22:38)
[2020-08-07] MEDS: SENNOSIDES 8.6MG TABLET (FP) PO SCH (11:31)
[2020-08-07] MEDS ORDERED: PT OWN MED DRAWER 7, Y5N ONE (17:57)
[2020-08-07] MEDS: SODIUM CHLORIDE 1,000 ML IV SCH (22:36)
[2020-08-07] MEDS: MONTELUKAST NA 10 MG TABLET PO SCH (22:37)
[2020-08-07] MEDS: ATORVASTATIN CA 20 MG TABLET (FP) PO SCH (22:37)
[2020-08-08 08:27] LABS: EOS % 2.8 % (0-4.5); HEMATOCRIT 40.8 % (35.4-49); HEMOGLOBIN 13.4 GM/dL (11.7-16.9); LYMPH % 9.6 % (8-40); MCH 27.5 pg (25.7-33.7); MCHC 32.9 g/dl (32.0-35.9); MEAN CELL VOLUME 83.5 fl (80-96); MEAN PLT VOLUME 10.4 fl (7.5-11.1); MONO % 9.4 % (3.8-10.2); NEUT % 77.2 % (42.8-82.8); PLATELET COUNT 133 K/MM3 (134-434); RBC 4.88 M/mm3 (4.00-5.60); RDW 15.6 % (11.9-15.9); WHITE BLOOD COUNT 7.5 K/mm3 (4.0-10.0)
[2020-08-08 09:30] LABS: ALBUMIN 3.8 g/dl (3.4-5.0); BILIRUBIN,TOTAL 0.3 mg/dL (0.2-1); BLOOD UREA NITROGEN 8.1 mg/dL (7-18); CALCIUM 8.8 mg/dL (8.5-10.1); CREATININE 0.4 mg/dL (0.55-1.3); MAGNESIUM 2.1 mg/dL (1.8-2.4); POTASSIUM 4.1 mmol/L (3.5-5.1); TOT PROT 7.4 g/dl (6.4-8.2)
[2020-08-08] MEDS ORDERED: PT OWN MED DRAWER 7, Y5N ONE (10:52)
[2020-08-08] MEDS ORDERED: DEXTROSE 5%-WATER 100 ML IVPB ONE (10:53)
[2020-08-08] MEDS: PHENYTOIN NA EXTENDED 100 MG CAPSULE (FP) PO SCH ×2 (11:08→23:02)
[2020-08-08] MEDS: ASPIRIN 81 MG CHEWABLE TABLETS PO SCH (11:08)
[2020-08-08] MEDS: HEPARIN NA (PORCINE) 5,000 UNITS/ML 1ML VIAL SQ SCH ×2 (11:08→23:02)
[2020-08-08] MEDS: CEFTRIAXONE 2 GM in DEXTROSE 5%-WATER 2 GM/100 ML BAG IVPB SCH (11:09)
[2020-08-08] MEDS: SENNOSIDES 8.6MG TABLET (FP) PO SCH (11:14)
[2020-08-08] MEDS: TIOTROPIUM BROMIDE 2.5 MCG (SPIRIVA) RESPIMAT INHALER IH SCH (11:15)
[2020-08-08] MEDS: SODIUM CHLORIDE 1,000 ML IV SCH (11:15)
[2020-08-08] MEDS: AMOX TR/POT CLAV 875MG/125MG TABLETS (FP) PO SCH (18:02)
[2020-08-08] MEDS: MONTELUKAST NA 10 MG TABLET PO SCH (23:02)
[2020-08-08] MEDS: ATORVASTATIN CA 20 MG TABLET (FP) PO SCH (23:02)
[2020-08-09] MEDS: AMOX TR/POT CLAV 875MG/125MG TABLETS (FP) PO SCH (08:42)
[2020-08-09] MEDS: SENNOSIDES 8.6MG TABLET (FP) PO SCH ×2 (09:33→09:34)
[2020-08-09] MEDS: PHENYTOIN NA EXTENDED 100 MG CAPSULE (FP) PO SCH (09:33)
[2020-08-09] MEDS: HEPARIN NA (PORCINE) 5,000 UNITS/ML 1ML VIAL SQ SCH (09:33)
[2020-08-09] MEDS: TIOTROPIUM BROMIDE 2.5 MCG (SPIRIVA) RESPIMAT INHALER IH SCH (09:33)
[2020-08-09] MEDS: ASPIRIN 81 MG CHEWABLE TABLETS PO SCH (09:33)
[2020-08-09 10:27] VITALS: BP 117/71; PULSE 65; TEMP 96.3
== END 2020-08-09 11:05 | DRG 689 ==
LOC: JER 09:10 → JERBED 12:54 → J4W 08-06 18:30
PROVIDERS: ADMIT Internal Medicine; ATTEND Nurse Practitioner Acute Care
DX: N39.0 Urinary tract infection, site not specified (principal); G93.41 Metabolic encephalopathy; E43 Unspecified severe protein-calorie malnutrition; Z68.1 Body mass index [BMI] 19.9 or less, adult; J96.11 Chronic respiratory failure with hypoxia; R64 Cachexia; J44.9 Chronic obstructive pulmonary disease, unspecified; W19.XXXA Unspecified fall, initial encounter; I27.23 Pulmonary hypertension due to lung diseases and hypoxia; I25.10 Atherosclerotic heart disease of native coronary artery without angina pectoris; G40.909 Epilepsy, unspecified, not intractable, without status epilepticus; R55 Syncope and collapse; K21.9 Gastro-esophageal reflux disease without esophagitis; E78.5 Hyperlipidemia, unspecified; I10 Essential (primary) hypertension; Z95.5 Presence of coronary angioplasty implant and graft
CPT/HCPCS: 36415; 70450-TC; 71045-TC-FY; 74230-TC-FY; 80048; 80053; 80061; 80185; 81003; 82550; 82803; 83036; 83721; 83735; 84443; 84484; 85025; 85610; 85730; 87040; 87086; 87186; 92611-GN; 93005; 93010; 93880-TC; 97116-GP; 97162-GP; 99285-25; C9803; J0131; J1644; U0003

== ENCOUNTER 2023-08-19 16:43 | Inpatient (IN) | payer OTHER ==
[2023-08-19] MEDS ORDERED: ALBUTEROL SO4 2.5/IPRATROPIUM 0.5 INH SOL 3 ML VIAL.NEB. NEB ONE ×3 (17:49→21:20)
[2023-08-19] MEDS: ALBUTEROL SO4 2.5/IPRATROPIUM 0.5 INH SOL 3 ML VIAL.NEB. NEB SCH ×4 (17:59→18:37)
[2023-08-19 18:05] LABS: VENOUS BASE EXCESS 0.3 mmol/L (-2-2); VENOUS O2 SATURATION 33.1 % (70-80); VENOUS PCO2 48.9 mmHg (38-52); VENOUS PH 7.353 (7.310-7.410)
[2023-08-19 18:16] LABS: BASO % 0.2 % (0-2.0); HEMATOCRIT 41.7 % (35.4-49); HEMOGLOBIN 13.5 GM/dL (11.7-16.9); LYMPH % 4.3 % (8-40); MCH 28.4 pg (25.7-33.7); MCHC 32.5 g/dl (32.0-35.9); MEAN CELL VOLUME 87.3 fl (80-96); MONO % 16.3 % (3.8-10.2); NEUT % 79.2 % (42.8-82.8); PLATELET COUNT 161 10^3/uL (134-434); RBC 4.77 M/mm3 (4.00-5.60); WHITE BLOOD COUNT 12.7 K/mm3 (4.0-10.0)
[2023-08-19 18:29] LABS: POTASSIUM 3.5 mmol/L (3.5-5.1)
[2023-08-19 18:33] LABS: ALBUMIN 2.7 g/dl (3.4-5.0); BLOOD UREA NITROGEN 14.6 mg/dL (7-18); MAGNESIUM 1.9 mg/dL (1.8-2.4)
[2023-08-19 18:36] LABS: CREATININE 0.6 mg/dL (0.55-1.3)
[2023-08-19 18:38] LABS: BILIRUBIN,TOTAL 0.6 mg/dL (0.2-1)
[2023-08-19 18:41] LABS: N-TERMINAL BNP 598.8 pg/ml (5-450)
[2023-08-19] MEDS ORDERED: VANCOMYCIN 1,000 MG in DEXTROSE 5%-WATER - 250 ML IVPB ONE (18:48)
[2023-08-19] MEDS ORDERED: PIPERACILLIN/TAZOB 4.5 GM 4.5 GM in DEXTROSE 5%-WATER 100 ML IVPB ONE (18:48)
[2023-08-19 19:01] LABS: LACTIC ACID 3.4 mmol/L (0.4-2.0)
[2023-08-19] MEDS ORDERED: PIPERACILLIN/TAZOB 4.5 GM 4.5 GM/100 ML BAG IVPB ONE (19:05)
[2023-08-19] MEDS ORDERED: VANCOMYCIN 1 GRAM (PRE-DOCKED) 1,000 MG/250 ML BAG IVPB ONE (19:05)
[2023-08-19] MEDS ORDERED: LACTATED RINGERS SOLUTION 1,000 ML/1,000 ML INFUS.BAG IV SCH (19:15)
[2023-08-19] MEDS ORDERED: DOCUSATE SODIUM 100 MG CAPSULE (FP) PO PRN (21:09)
[2023-08-19] MEDS ORDERED: ACETAMINOPHEN 1000 MG/100 ML BAG IVPB PRN (21:19)
[2023-08-20] MEDS ORDERED: ALBUTEROL SO4 2.5/IPRATROPIUM 0.5 INH SOL 3 ML VIAL.NEB. NEB ONE ×3 (00:14→10:54)
[2023-08-20] MEDS: ALBUTEROL SO4 2.5/IPRATROPIUM 0.5 INH SOL 3 ML VIAL.NEB. NEB PRN ×3 (00:24→16:49)
[2023-08-20] MEDS: SODIUM CHLORIDE 1,000 ML IV SCH ×2 (01:39→22:25)
[2023-08-20 02:31] LABS: LACTIC ACID 2.2 mmol/L (0.4-2.0)
[2023-08-20] MEDS ORDERED: methylPREDNISolone NA SUCC 125 MG/2 ML VIAL ONE (04:01)
[2023-08-20] MEDS ORDERED: methylPREDNISolone NA SUCC 125 MG/2 ML VIAL IVPUSH ONE ×2 (04:15→21:22)
[2023-08-20] MEDS ORDERED: PIPERACILLIN/TAZOB 3.375 GM 3.375 GM/50 ML BAG IVPB ONE ×2 (05:35→08:18)
[2023-08-20] MEDS: PIPERACILLIN/TAZOB 3.375 GM 3.375 GM in DEXTROSE 5%-WATER - 50 ML IVPB SCH ×2 (06:00→08:19)
[2023-08-20 07:28] LABS: HEMATOCRIT 36.8 % (35.4-49); HEMOGLOBIN 12.2 GM/dL (11.7-16.9); MCH 28.5 pg (25.7-33.7); MCHC 33.1 g/dl (32.0-35.9); MEAN CELL VOLUME 86.1 fl (80-96); MEAN PLT VOLUME 9.4 fl (7.5-11.1); PLATELET COUNT 131 10^3/uL (134-434); RBC 4.27 M/mm3 (4.00-5.60); RDW 13.4 % (11.9-15.9); WHITE BLOOD COUNT 10.5 K/mm3 (4.0-10.0)
[2023-08-20 07:30] LABS: INR 1.33 (0.83-1.09); PROTHROMBIN TIME (PATIENT) 15.4 SEC (9.7-13.0)
[2023-08-20 07:32] LABS: ACTIVATED PTT 30.6 SECONDS (25.2-36.5)
[2023-08-20] MEDS ORDERED: VANCOMYCIN 750 MG in DEXTROSE 5%-WATER - 150 ML IVPB SCH (08:00)
[2023-08-20] MEDS ORDERED: VANCOMYCIN/WATER FOR INJ (PEG) 750 MG/150 ML BAG IVPB SCH (08:00)
[2023-08-20] MEDS ORDERED: methylPREDNISolone NA SUCC 40 MG/1 ML VIAL ONE (08:19)
[2023-08-20 08:34] LABS: POTASSIUM 3.2 mmol/L (3.5-5.1)
[2023-08-20 08:37] LABS: ALBUMIN 2.6 g/dl (3.4-5.0); BLOOD UREA NITROGEN 9.8 mg/dL (7-18)
[2023-08-20 08:40] LABS: PHOSPHOROUS 2.8 mg/dL (2.5-4.9)
[2023-08-20 08:41] LABS: CREATININE 0.4 mg/dL (0.55-1.3)
[2023-08-20 08:42] LABS: BILIRUBIN,TOTAL 0.9 mg/dL (0.2-1); TOT PROT 6.4 g/dl (6.4-8.2)
[2023-08-20 08:43] LABS: ANISOCYTOSIS 0; MACROCYTOSIS 0
[2023-08-20] MEDS: methylPREDNISolone NA SUCC 40 MG/1 ML VIAL IVPUSH SCH ×2 (09:16→17:06)
[2023-08-20] MEDS ORDERED: APIXABAN 2.5 MG TABLET ONE (10:04)
[2023-08-20] MEDS ORDERED: metoPROLOL SUCCINATE 25 MG TAB.SR.24H (FP) PO ONE (10:04)
[2023-08-20] MEDS ORDERED: PHENYTOIN NA EXTENDED 100 MG CAPSULE (FP) ONE (10:04)
[2023-08-20] MEDS: PHENYTOIN NA EXTENDED 100 MG CAPSULE (FP) PO SCH ×2 (10:15→22:18)
[2023-08-20] MEDS: APIXABAN 2.5 MG TABLET PO SCH ×2 (10:15→22:18)
[2023-08-20] MEDS: metoPROLOL SUCCINATE 25 MG TAB.SR.24H (FP) PO SCH (10:15)
[2023-08-20] MEDS ORDERED: POTASSIUM CHLORIDE ORAL LIQUID 20 MEQ/15 ML PO ONE (10:25)
[2023-08-20] MEDS ORDERED: POTASSIUM CHLORIDE ORAL LIQUID 20 MEQ/15 ML ONE (10:55)
[2023-08-20] MEDS: BUDESONIDE/FORMETEROL FUMARATE 160/4.5 mcg INHALER IH SCH ×2 (10:59→22:55)
[2023-08-20] MEDS: CEFTRIAXONE 1 GM in DEXTROSE 5%-WATER - 50 ML IVPB SCH (15:11)
[2023-08-20] MEDS: ALBUTEROL SO4 2.5/IPRATROPIUM 0.5 INH SOL 3 ML VIAL.NEB. NEB SCH (21:01)
[2023-08-20] MEDS: ROSUVASTATIN CA 20 MG TABLET PO SCH (22:18)
[2023-08-21] MEDS: methylPREDNISolone NA SUCC 40 MG/1 ML VIAL IVPUSH SCH ×3 (01:54→17:14)
[2023-08-21] MEDS: ALBUTEROL SO4 2.5/IPRATROPIUM 0.5 INH SOL 3 ML VIAL.NEB. NEB SCH ×3 (07:22→20:05)
[2023-08-21] MEDS: APIXABAN 2.5 MG TABLET PO SCH ×2 (10:29→22:17)
[2023-08-21] MEDS: PHENYTOIN NA EXTENDED 100 MG CAPSULE (FP) PO SCH ×2 (10:29→22:17)
[2023-08-21] MEDS: metoPROLOL SUCCINATE 25 MG TAB.SR.24H (FP) PO SCH (10:30)
[2023-08-21] MEDS: CEFTRIAXONE 1 GM in DEXTROSE 5%-WATER - 50 ML IVPB SCH (10:30)
[2023-08-21] MEDS: BUDESONIDE/FORMETEROL FUMARATE 160/4.5 mcg INHALER IH SCH ×2 (10:39→22:18)
[2023-08-21] MEDS: PIPERACILLIN/TAZOB 3.375 GM 3.375 GM in DEXTROSE 5%-WATER - 50 ML IVPB SCH ×2 (13:56→13:57)
[2023-08-21 16:28] VITALS: BMI 15.3
[2023-08-21] MEDS ORDERED: POTASSIUM CHLORIDE ORAL LIQUID 20 MEQ/15 ML PO ONE (16:33)
[2023-08-21] MEDS: KCL 10 MEQ IVPB 10 MEQ/100 ML INFUS.BAG IVPB SCH ×3 (17:14→19:18)
[2023-08-21] MEDS: ROSUVASTATIN CA 20 MG TABLET PO SCH (22:17)
[2023-08-22] MEDS: methylPREDNISolone NA SUCC 40 MG/1 ML VIAL IVPUSH SCH ×3 (01:24→17:52)
[2023-08-22] MEDS: ALBUTEROL SO4 2.5/IPRATROPIUM 0.5 INH SOL 3 ML VIAL.NEB. NEB SCH ×3 (07:41→20:15)
[2023-08-22] MEDS: PHENYTOIN NA EXTENDED 100 MG CAPSULE (FP) PO SCH ×2 (09:48→21:06)
[2023-08-22] MEDS: CEFTRIAXONE 1 GM in DEXTROSE 5%-WATER - 50 ML IVPB SCH (09:48)
[2023-08-22] MEDS: metoPROLOL SUCCINATE 25 MG TAB.SR.24H (FP) PO SCH (09:49)
[2023-08-22] MEDS: APIXABAN 2.5 MG TABLET PO SCH ×2 (09:49→21:06)
[2023-08-22] MEDS: BUDESONIDE/FORMETEROL FUMARATE 160/4.5 mcg INHALER IH SCH ×2 (09:50→21:09)
[2023-08-22] MEDS: FUROSEMIDE 40 MG/4 ML INJECTABLE VIAL IVPUSH SCH (11:30)
[2023-08-22 11:44] VITALS: RESP 18
[2023-08-22 13:33] LABS: BASO % 0.1 % (0-2.0); HEMATOCRIT 37.6 % (35.4-49); HEMOGLOBIN 12.1 GM/dL (11.7-16.9); LYMPH % 4.3 % (8-40); MCHC 32.3 g/dl (32.0-35.9); MEAN CELL VOLUME 86.5 fl (80-96); MEAN PLT VOLUME 9.4 fl (7.5-11.1); MONO % 6.1 % (3.8-10.2); NEUT % 89.5 % (42.8-82.8); PLATELET COUNT 168 10^3/uL (134-434); RBC 4.34 M/mm3 (4.00-5.60); RDW 14.2 % (11.9-15.9); WHITE BLOOD COUNT 14.9 K/mm3 (4.0-10.0)
[2023-08-22 13:57] LABS: POTASSIUM 4.5 mmol/L (3.5-5.1)
[2023-08-22 14:02] LABS: BLOOD UREA NITROGEN 9.4 mg/dL (7-18); CALCIUM 8.1 mg/dL (8.5-10.1)
[2023-08-22 14:03] LABS: ALBUMIN 2.6 g/dl (3.4-5.0)
[2023-08-22 14:06] LABS: CREATININE 0.5 mg/dL (0.55-1.3)
[2023-08-22 14:07] LABS: BILIRUBIN,TOTAL 0.2 mg/dL (0.2-1); TOT PROT 6.5 g/dl (6.4-8.2)
[2023-08-22] MEDS: ROSUVASTATIN CA 20 MG TABLET PO SCH (21:06)
[2023-08-23] MEDS: methylPREDNISolone NA SUCC 40 MG/1 ML VIAL IVPUSH SCH ×4 (01:39→18:10)
[2023-08-23] MEDS: ALBUTEROL SO4 0.083% IH SOL 2.5 MG/3 ML VIAL.NEB. NEB PRN (02:56)
[2023-08-23] MEDS: ALBUTEROL SO4 2.5/IPRATROPIUM 0.5 INH SOL 3 ML VIAL.NEB. NEB SCH ×3 (08:13→19:49)
[2023-08-23] MEDS: APIXABAN 2.5 MG TABLET PO SCH ×2 (10:08→22:19)
[2023-08-23] MEDS: CEFTRIAXONE 1 GM in DEXTROSE 5%-WATER - 50 ML IVPB SCH (10:08)
[2023-08-23] MEDS: FUROSEMIDE 40 MG/4 ML INJECTABLE VIAL IVPUSH SCH (10:08)
[2023-08-23] MEDS: PHENYTOIN NA EXTENDED 100 MG CAPSULE (FP) PO SCH ×2 (10:08→22:19)
[2023-08-23] MEDS: metoPROLOL SUCCINATE 25 MG TAB.SR.24H (FP) PO SCH (10:08)
[2023-08-23] MEDS: BUDESONIDE/FORMETEROL FUMARATE 160/4.5 mcg INHALER IH SCH ×2 (11:13→22:18)
[2023-08-23 11:43] LABS: BASO % 0.3 % (0-2.0); EOS % 0.1 % (0-4.5); HEMATOCRIT 35.8 % (35.4-49); HEMOGLOBIN 11.5 GM/dL (11.7-16.9); LYMPH % 6.1 % (8-40); MCH 27.9 pg (25.7-33.7); MCHC 32.1 g/dl (32.0-35.9); MEAN CELL VOLUME 86.8 fl (80-96); MEAN PLT VOLUME 9.2 fl (7.5-11.1); MONO % 10.3 % (3.8-10.2); NEUT % 83.2 % (42.8-82.8); PLATELET COUNT 161 10^3/uL (134-434); RBC 4.12 M/mm3 (4.00-5.60); RDW 14.2 % (11.9-15.9); WHITE BLOOD COUNT 14.8 K/mm3 (4.0-10.0)
[2023-08-23] MEDS: ACETAMINOPHEN 325 MG TABLET (FP) PO PRN (11:48)
[2023-08-23 11:55] LABS: POTASSIUM 4.3 mmol/L (3.5-5.1)
[2023-08-23 11:57] LABS: ALBUMIN 2.5 g/dl (3.4-5.0); BLOOD UREA NITROGEN 12.2 mg/dL (7-18)
[2023-08-23 12:01] LABS: CREATININE 0.5 mg/dL (0.55-1.3)
[2023-08-23 12:02] LABS: BILIRUBIN,TOTAL 0.1 mg/dL (0.2-1); TOT PROT 6.2 g/dl (6.4-8.2)
[2023-08-23] MEDS: ROSUVASTATIN CA 20 MG TABLET PO SCH (22:19)
[2023-08-24] MEDS: methylPREDNISolone NA SUCC 40 MG/1 ML VIAL IVPUSH SCH ×3 (02:02→18:59)
[2023-08-24] MEDS: ALBUTEROL SO4 2.5/IPRATROPIUM 0.5 INH SOL 3 ML VIAL.NEB. NEB SCH ×3 (07:30→20:01)
[2023-08-24] MEDS: metoPROLOL SUCCINATE 25 MG TAB.SR.24H (FP) PO SCH (09:55)
[2023-08-24] MEDS: APIXABAN 2.5 MG TABLET PO SCH ×2 (09:55→21:50)
[2023-08-24] MEDS: PHENYTOIN NA EXTENDED 100 MG CAPSULE (FP) PO SCH ×2 (09:55→21:50)
[2023-08-24] MEDS: FUROSEMIDE 40 MG/4 ML INJECTABLE VIAL IVPUSH SCH (09:55)
[2023-08-24] MEDS: CEFTRIAXONE 1 GM in DEXTROSE 5%-WATER - 50 ML IVPB SCH (09:56)
[2023-08-24] MEDS: BUDESONIDE/FORMETEROL FUMARATE 160/4.5 mcg INHALER IH SCH ×2 (09:57→21:51)
[2023-08-24] MEDS: ROSUVASTATIN CA 20 MG TABLET PO SCH (21:50)
[2023-08-25] MEDS: ALBUTEROL SO4 0.083% IH SOL 2.5 MG/3 ML VIAL.NEB. NEB PRN ×2 (01:52→20:05)
[2023-08-25] MEDS: methylPREDNISolone NA SUCC 40 MG/1 ML VIAL IVPUSH SCH ×3 (02:16→18:07)
[2023-08-25] MEDS: ALBUTEROL SO4 2.5/IPRATROPIUM 0.5 INH SOL 3 ML VIAL.NEB. NEB SCH ×2 (07:15→13:58)
[2023-08-25 09:18] LABS: HEMATOCRIT 41.6 % (35.4-49); HEMOGLOBIN 13.6 GM/dL (11.7-16.9); MCH 28.4 pg (25.7-33.7); MCHC 32.7 g/dl (32.0-35.9); MEAN CELL VOLUME 86.9 fl (80-96); MEAN PLT VOLUME 9.5 fl (7.5-11.1); PLATELET COUNT 200 10^3/uL (134-434); RBC 4.79 M/mm3 (4.00-5.60); WHITE BLOOD COUNT 19.2 K/mm3 (4.0-10.0)
[2023-08-25 09:40] LABS: POTASSIUM 4.5 mmol/L (3.5-5.1)
[2023-08-25 09:51] LABS: ALBUMIN 2.9 g/dl (3.4-5.0); BLOOD UREA NITROGEN 20.4 mg/dL (7-18); CALCIUM 8.5 mg/dL (8.5-10.1)
[2023-08-25 09:54] LABS: CREATININE 0.5 mg/dL (0.55-1.3)
[2023-08-25 09:56] LABS: BILIRUBIN,TOTAL 0.3 mg/dL (0.2-1); TOT PROT 6.8 g/dl (6.4-8.2)
[2023-08-25] MEDS: FUROSEMIDE 40 MG/4 ML INJECTABLE VIAL IVPUSH SCH (10:26)
[2023-08-25] MEDS: PHENYTOIN NA EXTENDED 100 MG CAPSULE (FP) PO SCH ×2 (10:26→21:24)
[2023-08-25] MEDS: metoPROLOL SUCCINATE 25 MG TAB.SR.24H (FP) PO SCH (10:26)
[2023-08-25] MEDS: CEFTRIAXONE 1 GM in DEXTROSE 5%-WATER - 50 ML IVPB SCH (10:26)
[2023-08-25] MEDS: APIXABAN 2.5 MG TABLET PO SCH ×2 (10:26→21:24)
[2023-08-25] MEDS: BUDESONIDE/FORMETEROL FUMARATE 160/4.5 mcg INHALER IH SCH ×2 (10:27→21:25)
[2023-08-25 11:14] LABS: ANISOCYTOSIS 2+; MACROCYTOSIS 0; ROULEAU 1+
[2023-08-25] MEDS: ROSUVASTATIN CA 20 MG TABLET PO SCH (21:24)
[2023-08-25] MEDS: ACETAMINOPHEN 325 MG TABLET (FP) PO PRN (21:28)
[2023-08-26] MEDS: methylPREDNISolone NA SUCC 40 MG/1 ML VIAL IVPUSH SCH ×2 (01:21→09:45)
[2023-08-26] MEDS: BUDESONIDE/FORMETEROL FUMARATE 160/4.5 mcg INHALER IH SCH ×2 (09:43→21:45)
[2023-08-26] MEDS: CEFTRIAXONE 1 GM in DEXTROSE 5%-WATER - 50 ML IVPB SCH (09:44)
[2023-08-26] MEDS: APIXABAN 2.5 MG TABLET PO SCH ×2 (09:45→22:02)
[2023-08-26] MEDS: PHENYTOIN NA EXTENDED 100 MG CAPSULE (FP) PO SCH ×2 (09:45→22:01)
[2023-08-26] MEDS: metoPROLOL SUCCINATE 25 MG TAB.SR.24H (FP) PO SCH (09:45)
[2023-08-26] MEDS: FUROSEMIDE 40 MG/4 ML INJECTABLE VIAL IVPUSH SCH (09:45)
[2023-08-26] MEDS: MAG HYDROX/AL HYDROX/SIMETH 30 ML UNIT-DOSE CUP PO PRN (17:20)
[2023-08-26] MEDS: AMOX TR/POT CLAV 875MG/125MG TABLETS (FP) PO SCH (18:19)
[2023-08-26] MEDS: ROSUVASTATIN CA 20 MG TABLET PO SCH (22:01)
[2023-08-26] MEDS: ACETAMINOPHEN 325 MG TABLET (FP) PO PRN (22:02)
[2023-08-27 08:09] VITALS: TEMP 97.6
[2023-08-27] MEDS: AMOX TR/POT CLAV 875MG/125MG TABLETS (FP) PO SCH ×2 (08:44→17:32)
[2023-08-27] MEDS ORDERED: methylPREDNISolone NA SUCC 40 MG/1 ML VIAL IVPUSH SCH (10:00)
[2023-08-27] MEDS: ALBUTEROL SO4 2.5/IPRATROPIUM 0.5 INH SOL 3 ML VIAL.NEB. NEB PRN ×2 (10:45→16:08)
[2023-08-27] MEDS: PHENYTOIN NA EXTENDED 100 MG CAPSULE (FP) PO SCH (10:54)
[2023-08-27] MEDS: metoPROLOL SUCCINATE 25 MG TAB.SR.24H (FP) PO SCH (10:54)
[2023-08-27] MEDS: APIXABAN 2.5 MG TABLET PO SCH (10:54)
[2023-08-27] MEDS: BUDESONIDE/FORMETEROL FUMARATE 160/4.5 mcg INHALER IH SCH (10:55)
[2023-08-27] MEDS: MAG HYDROX/AL HYDROX/SIMETH 30 ML UNIT-DOSE CUP PO PRN (14:08)
[2023-08-27] MEDS ORDERED: PANTOPRAZOLE 40 MG TABLET PO SCH (16:30)
[2023-08-27 21:42] VITALS: BP 121/78; PULSE 77
== END 2023-08-27 21:05 | DRG 193 ==
LOC: JER 16:43 → JERBED 19:27 → J8W 08-20 13:40
PROVIDERS: ADMIT Internal Medicine; ATTEND Internal Medicine
DX: J12.1 Respiratory syncytial virus pneumonia (principal); E43 Unspecified severe protein-calorie malnutrition; Z68.1 Body mass index [BMI] 19.9 or less, adult; R64 Cachexia; J96.11 Chronic respiratory failure with hypoxia; J44.0 Chronic obstructive pulmonary disease with (acute) lower respiratory infection; J44.1 Chronic obstructive pulmonary disease with (acute) exacerbation; E87.20 Acidosis, unspecified; I50.32 Chronic diastolic (congestive) heart failure; J18.9 Pneumonia, unspecified organism; I11.0 Hypertensive heart disease with heart failure; I25.10 Atherosclerotic heart disease of native coronary artery without angina pectoris; E78.5 Hyperlipidemia, unspecified; D72.829 Elevated white blood cell count, unspecified; I48.91 Unspecified atrial fibrillation; I27.20 Pulmonary hypertension, unspecified; K21.9 Gastro-esophageal reflux disease without esophagitis; G40.909 Epilepsy, unspecified, not intractable, without status epilepticus; Z95.5 Presence of coronary angioplasty implant and graft; R50.9 Fever, unspecified; Z99.81 Dependence on supplemental oxygen; Z96.641 Presence of right artificial hip joint
CPT/HCPCS: 0241U-QW; 36415; 71045-TC-FY; 80053; 80061; 82803; 83036; 83605; 83735; 83880; 84100; 84443; 84484; 85025; 85610; 85730; 87070; 87205; 87635; 93005; 93010; 93306-TC; 94640; 97116-GP; 97161-GP; 99285-25

== ENCOUNTER 2023-10-10 11:11 | Emergency (ER) | payer OTHER ==
[2023-10-10 11:23] VITALS: BMI 22.3
[2023-10-10] MEDS ORDERED: ACETAMINOPHEN 500 MG TABLET (FP) PO ONE (13:22)
[2023-10-10] MEDS ORDERED: ACETAMINOPHEN 500 MG TABLET (FP) ONE (14:26)
[2023-10-10] MEDS ORDERED: LIDOCAINE 1.5%-EPINEPHRINE 1:200,000/PF 30 ML VIAL IJ ONE (16:19)
[2023-10-10] MEDS ORDERED: LIDOCAINE 1%/EPI 1:100000 (50 ML MULTI DOSE VIAL) ONE (16:21)
[2023-10-10 16:53] VITALS: PULSE 82; RESP 18
[2023-10-10 18:16] VITALS: BP 113/61; TEMP 98.1
== END 2023-10-10 21:10 | disposition home or self-care (01) ==
LOC: JER 11:11
PROC: 0HQ1XZZ Repair Face Skin, External Approach (ICD-10-PCS; principal; 2023-10-10)
DX: S01.81XA Laceration without foreign body of other part of head, initial encounter (principal); M25.551 Pain in right hip; R51.9 Headache, unspecified; W06.XXXA Fall from bed, initial encounter
CPT/HCPCS: 70450-TC; 71045-TC-FY; 72125-TC; 72192-TC; 99284-25

== ENCOUNTER 2023-10-20 07:16 | Inpatient (IN) | payer OTHER ==
[2023-10-20] MEDS ORDERED: ALBUTEROL SO4 2.5/IPRATROPIUM 0.5 INH SOL 3 ML VIAL.NEB. NEB ONE ×2 (07:56→20:20)
[2023-10-20] MEDS ORDERED: methylPREDNISolone NA SUCC 125 MG/2 ML VIAL ONE (07:56)
[2023-10-20 08:35] LABS: VENOUS BASE EXCESS -0.1 mmol/L (-2-2); VENOUS O2 SATURATION 52.8 % (70-80); VENOUS PCO2 68.4 mmHg (38-52); VENOUS PH 7.245 (7.310-7.410)
[2023-10-20] MEDS: ALBUTEROL SO4 2.5/IPRATROPIUM 0.5 INH SOL 3 ML VIAL.NEB. NEB SCH ×2 (08:37→20:29)
[2023-10-20 08:39] LABS: HEMATOCRIT 40.1 % (35.4-49); HEMOGLOBIN 12.6 GM/dL (11.7-16.9); MCH 27.8 pg (25.7-33.7); MCHC 31.4 g/dl (32.0-35.9); MEAN CELL VOLUME 88.7 fl (80-96); PLATELET COUNT 213 10^3/uL (134-434); RBC 4.53 M/mm3 (4.00-5.60); RDW 16.3 % (11.9-15.9)
[2023-10-20 08:43] VITALS: BMI 17.2
[2023-10-20 08:50] LABS: WHITE BLOOD COUNT 31.9 K/mm3 (4.0-10.0)
[2023-10-20 08:51] LABS: INR 1.1 (0.83-1.09); PROTHROMBIN TIME (PATIENT) 12.7 SEC (9.7-13.0)
[2023-10-20] MEDS: methylPREDNISolone NA SUCC 125 MG/2 ML VIAL IVPUSH ONE (08:51)
[2023-10-20 08:54] LABS: ACTIVATED PTT 19.1 SECONDS (25.2-36.5)
[2023-10-20 09:01] LABS: POTASSIUM 3.5 mmol/L (3.5-5.1)
[2023-10-20 09:03] LABS: CALCIUM 8.3 mg/dL (8.5-10.1)
[2023-10-20 09:04] LABS: ALBUMIN 3.2 g/dl (3.4-5.0); BLOOD UREA NITROGEN 12.2 mg/dL (7-18); MAGNESIUM 2.1 mg/dL (1.8-2.4)
[2023-10-20 09:07] LABS: CREATININE 0.6 mg/dL (0.55-1.3)
[2023-10-20 09:09] LABS: BILIRUBIN,TOTAL 0.6 mg/dL (0.2-1); TOT PROT 6.8 g/dl (6.4-8.2)
[2023-10-20] MEDS: SODIUM CHLORIDE 0.9% 500 ML INFUS.BAG IV ONE (10:00)
[2023-10-20] MEDS: PIPERACILLIN/TAZOB 4.5 GM 4.5 GM in DEXTROSE 5%-WATER 100 ML IVPB ONE (10:05)
[2023-10-20] MEDS: VANCOMYCIN 1,000 MG in DEXTROSE 5%-WATER - 250 ML IVPB ONE (11:25)
[2023-10-20] MEDS ORDERED: PIPERACILLIN/TAZOB 4.5 GM 4.5 GM/100 ML BAG IVPB ONE ×2 (11:38→18:53)
[2023-10-20 11:54] LABS: ANISOCYTOSIS 1+; MACROCYTOSIS 0
[2023-10-20] MEDS ORDERED: VANCOMYCIN 1 GRAM (PRE-DOCKED) 1,000 MG/250 ML BAG IVPB ONE ×2 (12:26→14:16)
[2023-10-20 12:34] LABS: PH,URINE 5.5 (5.0-8.0); URINE APPEARANCE CLEAR; URINE BILIRUBIN NEGATIVE (NEGATIVE); URINE COLOR DK YELLOW; URINE GLUCOSE (UA) NEGATIVE (NEGATIVE); URINE KETONE TRACE (NEGATIVE); URINE LEUK ESTERASE NEGATIVE (NEGATIVE); URINE NITRITE NEGATIVE (NEGATIVE); URINE PROTEIN TRACE (NEGATIVE)
[2023-10-20] MEDS ORDERED: ALBUTEROL SO4 0.083% IH SOL 2.5 MG/3 ML VIAL.NEB. NEB PRN (16:19)
[2023-10-20] MEDS ORDERED: dilTIAZem HCL 50 MG/10 ML - 10 ML VIAL IVPUSH PRN (17:00)
[2023-10-20] MEDS ORDERED: ACETAMINOPHEN 1000 MG/100 ML BAG IVPB PRN (17:03)
[2023-10-20] MEDS ORDERED: PANTOPRAZOLE SODIUM 40 MG VIAL ONE (17:17)
[2023-10-20] MEDS ORDERED: dilTIAZem HCL 50 MG/10 ML - 10 ML VIAL IVPB PRN (17:24)
[2023-10-20] MEDS: PANTOPRAZOLE SODIUM 40 MG VIAL IVPUSH SCH (17:26)
[2023-10-20] MEDS: D5-1/2NS+20 MEQ KCL - 20 MEQ/1,000 ML INFUS.BAG IV SCH (17:26)
[2023-10-20] MEDS ORDERED: methylPREDNISolone NA SUCC 40 MG/1 ML VIAL ONE (18:53)
[2023-10-20] MEDS: methylPREDNISolone NA SUCC 40 MG/1 ML VIAL IVPUSH SCH (19:01)
[2023-10-20] MEDS: PIPERACILLIN/TAZOB 4.5 GM 4.5 GM in DEXTROSE 5%-WATER 100 ML IVPB SCH (19:02)
[2023-10-20] MEDS ORDERED: PHENYTOIN SODIUM 250 MG/5 ML VIAL IVPB SCH (22:00)
[2023-10-20] MEDS: SODIUM CHLORIDE 500 ML IV STA (22:30)
[2023-10-20] MEDS: FOSPHENYTOIN SODIUM 100 MG in SODIUM CHLORIDE 100 ML IVPB SCH (23:06)
[2023-10-20] MEDS: HEPARIN NA (PORCINE) 5,000 UNITS/ML 1ML VIAL SQ SCH (23:19)
[2023-10-21 09:06] LABS: HEMATOCRIT 37.8 % (35.4-49); HEMOGLOBIN 11.9 GM/dL (11.7-16.9); MCH 27.8 pg (25.7-33.7); MCHC 31.4 g/dl (32.0-35.9); MEAN CELL VOLUME 88.5 fl (80-96); MEAN PLT VOLUME 9.9 fl (7.5-11.1); PLATELET COUNT 180 10^3/uL (134-434); RBC 4.27 M/mm3 (4.00-5.60); RDW 16.7 % (11.9-15.9)
[2023-10-21 09:28] LABS: WHITE BLOOD COUNT 35.2 K/mm3 (4.0-10.0)
[2023-10-21 09:31] LABS: POTASSIUM 3.4 mmol/L (3.5-5.1)
[2023-10-21 09:42] LABS: ALBUMIN 3.1 g/dl (3.4-5.0); BLOOD UREA NITROGEN 21.1 mg/dL (7-18); CALCIUM 8.3 mg/dL (8.5-10.1)
[2023-10-21 09:44] LABS: CREATININE 0.8 mg/dL (0.55-1.3)
[2023-10-21 09:45] LABS: ANISOCYTOSIS 0; BILIRUBIN,TOTAL 0.7 mg/dL (0.2-1); MACROCYTOSIS 0; TOT PROT 6.3 g/dl (6.4-8.2)
[2023-10-21] MEDS: FOSPHENYTOIN SODIUM 100 MG in SODIUM CHLORIDE 100 ML IVPB SCH (13:18)
[2023-10-22 19:05] VITALS: PULSE 93; RESP 19; TEMP 98
[2023-10-22] MEDS ORDERED: dilTIAZem HCL 30 MG TABLET PO SCH (22:00)
[2023-10-22] MEDS: dilTIAZem HCL 30 MG TABLET PO SCH (22:07)
[2023-10-22] MEDS: ENOXAPARIN NA (PORCINE) 60 MG/0.6 ML DISP.SYRIN SQ SCH (23:14)
[2023-10-23 00:38] VITALS: BP 87/50
[2023-10-23] MEDS ORDERED: ENOXAPARIN NA (PORCINE) 60 MG/0.6 ML DISP.SYRIN SQ SCH (10:00)
== END 2023-10-23 01:07 | disposition expired | DRG 177 ==
LOC: JER 07:16 → JERBED 12:32 → J4S 21:21
PROVIDERS: ADMIT Family Medicine; ATTEND Family Medicine
DX: J69.0 Pneumonitis due to inhalation of food and vomit (principal); E43 Unspecified severe protein-calorie malnutrition; J96.01 Acute respiratory failure with hypoxia; J96.02 Acute respiratory failure with hypercapnia; R64 Cachexia; Z68.1 Body mass index [BMI] 19.9 or less, adult; J44.0 Chronic obstructive pulmonary disease with (acute) lower respiratory infection; J44.9 Chronic obstructive pulmonary disease, unspecified; I48.0 Paroxysmal atrial fibrillation; I10 Essential (primary) hypertension; E78.5 Hyperlipidemia, unspecified; D72.829 Elevated white blood cell count, unspecified; G40.909 Epilepsy, unspecified, not intractable, without status epilepticus; R91.1 Solitary pulmonary nodule; K74.60 Unspecified cirrhosis of liver; R53.83 Other fatigue; I27.20 Pulmonary hypertension, unspecified; I25.10 Atherosclerotic heart disease of native coronary artery without angina pectoris; K21.9 Gastro-esophageal reflux disease without esophagitis; Z86.711 Personal history of pulmonary embolism; Z95.5 Presence of coronary angioplasty implant and graft; Z66 Do not resuscitate; Z71.89 Other specified counseling
CPT/HCPCS: 0241U-QW; 36415; 71045-TC-FY; 80053; 80185; 81003; 82803; 82962; 83605; 83735; 84443; 84484; 85025; 85610; 85730; 86850; 86900; 86901; 87040; 87086; 93005; 93010; 94640; 99285-25; J1644